=== PATIENT | female | born 1945 | race Caucasian/White ===

== ENCOUNTER 2016-11-04 09:37 | Inpatient (IN) | payer MEDICARE, OTHER ==
[2016-11-05] MEDS ORDERED: Temazepam 15 MG Cap PO PRN (11:58)
[2016-11-05] MEDS ORDERED: Magnesium Hydroxide 400 MG/5 ML Susp 30 ML Cup PO PRN (11:58)
[2016-11-05] MEDS ORDERED: Acetaminophen 325 MG Tab PO PRN (14:03)
[2016-11-05] MEDS ORDERED: ALPRAZolam 0.25 MG Tab PO PRN (14:03)
[2016-11-05] MEDS: Acetaminophen/oxyCODONE 325-5 MG Tab PO PRN ×2 (14:19→20:10)
[2016-11-05] MEDS: Insulin Aspart 100 Units/ML 3 ML Pen SUBCUT SCH ×2 (17:54→20:11)
[2016-11-05] MEDS: Carvedilol 3.125 MG Tab PO SCH (20:10)
[2016-11-05] MEDS: Insulin Detemir 100 Units/ML 3 ML Pen SUBCUT SCH (20:11)
[2016-11-06] MEDS: Insulin Detemir 100 Units/ML 3 ML Pen SUBCUT SCH ×2 (08:00→20:53)
[2016-11-06] MEDS: Diltiazem 120 MG Cap.CD PO SCH (08:05)
[2016-11-06] MEDS: Ferrous Sulfate 324 MG Tab.EC PO SCH (08:05)
[2016-11-06] MEDS: Furosemide 80 MG Tab PO SCH (08:06)
[2016-11-06] MEDS: Carvedilol 3.125 MG Tab PO SCH ×2 (08:06→20:52)
[2016-11-06] MEDS: Aspirin 81 MG Tab.EC PO SCH (08:06)
[2016-11-06] MEDS: Losartan 100 MG Tab PO SCH (08:06)
[2016-11-06] MEDS: Insulin Aspart 100 Units/ML 3 ML Pen SUBCUT SCH ×4 (08:07→20:56)
[2016-11-06] MEDS: Pantoprazole 40 MG Tab.CR PO SCH (08:16)
--- NOTE | 2016-11-06 08:34 | PCM.HP ---
H&P History of Present Illness - General Date of Service: 11/06/16 Admit Problem/Dx: Admission Diagnosis/Problem Admission Diagnosis/Problem Hip replacement planned Source of Information: Patient, Old Records History Limitations: Reports: No Limitations - History of Present Illness Initial Comments - Free Text/Narative: Patient transferred to [facility] bed after a total hip replacement done by Dr. Andres in [place]. Prior to surgery, patient had been on indomethacin and prednisone for gouty flare. That had cleared but she did have pre and postoperative difficulty with diabetes control. Blood sugars were running high. Transferred to [facility] for monitoring of her diabetes and pain control as well as rehab for her hip as she does live home alone. Duration of Symptoms: Reports: Day(s): Location: Reports: Lower Extremity, Right Quality: Reports: Ache, Sharp Severity: Moderate Improves with: Reports: Medication, Rest Worsens with: Reports: Movement Associated Symptoms: Reports: No Other Symptoms Right Hip Pain Score (Numeric/FACES): 6 - Related Data Allergies/Adverse Reactions: Allergies Allergy/AdvReac Type Severity Reaction Status Date / Time lisinopril Allergy Rash Verified 11/05/16 11:34 paper tape Allergy Rash Uncoded 11/05/16 11:34 Home Medications: Home Meds Pantoprazole [ProTONIX] 40 mg PO DAILY 45 Days 11/26/13 [Rx] Carvedilol [Coreg] 3.125 mg PO BID #60 tablet 06/16/15 [Rx] Furosemide [Lasix] 80 mg PO DAILY #30 tablet 06/16/15 [Rx] Insulin Detemir [Levemir Flextouch] 44 unit SQ ACBREAKFAST 08/19/15 [History] Insulin Detemir [Levemir Flextouch] 48 unit SUBCUT BEDTIME 08/19/15 [History] Diltiazem HCl [Cardizem Cd] 240 mg PO DAILY #0 08/25/15 [Rx] Valsartan 160 mg PO DAILY #0 12/30/15 [Rx] ALPRAZolam [Xanax] 0.5 mg PO BEDTIME PRN 05/10/16 [History] Docusate Sodium [Colace] 100 mg PO DAILY PRN 11/03/16 [History] Acetaminophen 1 - 2 tab PO Q4H PRN 11/05/16 [History] Acetaminophen/oxyCODONE [Percocet 325-5 MG] 1 - 2 tab PO Q4H PRN 11/05/16 [ History] Aspirin 81 mg PO DAILY 11/05/16 [History] Ferrous Sulfate 325 mg PO DAILY 11/05/16 [History] Insulin Aspart [NovoLOG] 18 - 20 unit SUBCUT TIDAC 11/05/16 [History] Past Medical History HEENT History: Reports: Sinusitis Cardiovascular History: Reports: CAD, Heart Failure, Hypertension Respiratory History: Reports: Bronchitis, Recurrent Genitourinary History: Reports: Other (See Below) Other Genitourinary History: hs of surgery on kidney, pt unaware of why Musculoskeletal History: Reports: Osteoarthritis Psychiatric History: Reports: Anxiety, Depression Endocrine/Metabolic History: Reports: Diabetes, Type II Hematologic History: Reports: None - Past Surgical History Cardiovascular Surgical History: Reports: Carotid Stents GI Surgical History: Reports: Appendectomy, Colonoscopy, Hernia, Abdominal, Hernia Repair/Other, Lysis of Adhesions, Polypectomy Musculoskeletal Surgical History: Reports: Hip Replacement, Knee Replacement Oncologic Surgical History: Reports: None Dermatological Surgical History: Reports: None Social & Family History - Family History Family Medical History: Noncontributory Cardiac: Reports: CAD, Heart Failure, Hypertension Neurological: Reports: Cerebral Aneurysms - Tobacco Use Smoking Status *Q: Never Smoker Years of Tobacco use: 40 Packs/Tins Daily: 2 Used Tobacco, but Quit: No Second Hand Smoke Exposure: Yes - Caffeine Use Caffeine Use: Reports: None - Alcohol Use Days Per Week of Alcohol Use: 1 Number of Drinks Per Day: 2 Total Drinks Per Week: 2 - Recreational Drug Use Recreational Drug Use: No - Sexual History Sexual History: Reports: None - Living Situation & Occupation Living situation: Reports: , Single, with Significant Other Occupation: Employed H&P Review of Systems - Review of Systems: Review Of Systems: See Below General: Reports: Malaise, Weakness. Denies: Fever, Chills HEENT: Reports: No Symptoms Pulmonary: Denies: Shortness of Breath Cardiovascular: Denies: Chest Pain, Edema, Lightheadedness Gastrointestinal: Denies: Abdominal Pain, Constipation, Diarrhea, Decreased Appetite, Nausea, Vomiting Genitourinary: Reports: No Symptoms Musculoskeletal: Reports: Leg Pain, Joint Pain Skin: Reports: Other (Incision to right hip) Psychiatric: Reports: No Symptoms Neurological: Reports: No Symptoms Exam - Exam Exam: See Below - Vital Signs Vital Signs: Last Vital Signs Temp 98.0 F 11/06/16 07:57 Pulse 69 11/06/16 08:06 Resp 20 11/06/16 07:57 BP 139/51 L 11/06/16 08:06 Pulse Ox 95 11/06/16 07:57 Weight: 266 lb 12.8 oz - Exam General: Alert, Oriented HEENT: Mucosa Moist & [place] Neck: Supple Lungs: Clear to Auscultation, Normal Respiratory Effort Cardiovascular: Regular Rate, Regular Rhythm GI/Abdominal Exam: Normal Bowel Sounds, Soft, Non-Tender Extremities: Other (Right hip pain with range of motion). No: Increased Warmth Skin: Warm, Dry, Incision (right hip ) Neuro Extensive - Mental Status: Alert, Oriented x3 Psychiatric: Alert, Normal Affect, Normal Mood - Patient Data Lab Results Last 24 hrs: Laboratory Results - last 24 hr 11/05/16 11/05/16 11/06/16 Range/Units 17:09 20:09 07:55 POC Glucose 180 H 292 H 154 H (75-105) mg/dl *Q Meaningful Use (ADM) - VTE *Q VTE Criteria *Q: - Stroke *Q Stroke Criteria *Q: - AMI *Q AMI Criteria *Q: - Problem List (1) S/P total hip arthroplasty SNOMED Code(s): 445579450502, 700408329824 ICD Code: Z96.649 - PRESENCE OF UNSPECIFIED ARTIFICIAL HIP JOINT Status: Acute Priority: High Current Visit: Yes Qualifiers: Laterality: right Qualified Code(s): Z96.641 - Presence of right artificial hip joint (2) Diabetes mellitus type 2 SNOMED Code(s): 60992083 ICD Code: E11.9 - TYPE 2 DIABETES MELLITUS WITHOUT COMPLICATIONS Status: Chronic Priority: High Current Visit: Yes Problem List Initiated/Reviewed/Updated: Yes Orders Last 24hrs: Active Orders 24 hr Category Date Time Status Patient Status [ADT] Routine ADT 11/05/16 11:58 Active Antiembolic Devices [RC] 1000,2200 Care 11/05/16 15:01 Active Blood Glucose Check, Bedside [RC] QIDACANDBED Care 11/05/16 11:58 Active Oxygen Therapy [RC] .PRN Care 11/05/16 11:58 Active Up With Assistance [RC] .PRN Care 11/05/16 11:58 Active Vital Signs [RC] Care 11/05/16 11:58 Active Wound Care [RC] Care 11/05/16 11:58 Active PT Evaluation and Treatment [CONS] Routine Cons 11/05/16 11:58 Active Consistent Carbohydrate Diet [DIET] Diet 11/05/16 Lunch Active ALPRAZolam [Xanax] Med 11/05/16 14:03 Active 0.5 mg PO BEDTIME PRN Acetaminophen [Tylenol] Med 11/05/16 11:58 Active 650 mg PO Q4H PRN Acetaminophen [Tylenol] Med 11/05/16 14:03 Active 650 mg PO Q4H PRN Acetaminophen/oxyCODONE [Percocet 325-5 MG] Med 11/05/16 14:03 Active 1 - 2 tab PO Q4H PRN Aspirin [Halfprin] Med 11/06/16 08:00 Active 81 mg PO DAILY Carvedilol [Coreg] Med 11/05/16 20:00 Active 3.125 mg PO BID Diltiazem [Cardizem CD] Med 11/06/16 08:00 Active 240 mg PO DAILY Docusate Sodium [Colace] Med 11/05/16 14:03 Active 100 mg PO DAILY PRN Ferrous Sulfate Med 11/06/16 08:00 Active 324 mg PO DAILY Furosemide [Lasix] Med 11/06/16 08:00 Active 80 mg PO DAILY Insulin Aspart [NovoLOG] Med 11/05/16 17:30 Active See Protocol SUBCUT WITHMEALSANDBED Insulin Detemir [Levemir] Med 11/06/16 08:00 Active 44 unit SUBCUT 0800 Insulin Detemir [Levemir] Med 11/05/16 20:00 Active 48 unit SUBCUT BEDTIME Losartan [Cozaar] Med 11/06/16 08:00 Active 100 mg PO DAILY Magnesium Hydroxide [Milk of Magnesia] Med 11/05/16 11:58 Active 30 ml PO Q12H PRN Ondansetron [Zofran ODT] Med 11/05/16 11:58 Active 4 mg PO Q4H PRN Pantoprazole [ProTONIX] Med 11/06/16 07:00 Active 40 mg PO 0700 Temazepam [Restoril] Med 11/05/16 11:58 Active 15 mg PO BEDTIME PRN Katie Sutures Removal [RC] Click To Edit Oth 11/05/16 11:58 Active LEO Hose [Antiembolic Hose] [OM.PC] Routine Oth 11/05/16 15:01 Ordered Resuscitation Status Routine Resus Stat 11/05/16 11:58 Ordered Medication Orders Acetaminophen (Tylenol) 650 mg PO Q4H PRN PRN Reason: Pain (Mild 1-3)/fever Acetaminophen (Tylenol) 650 mg PO Q4H PRN PRN Reason: Pain Alprazolam (Xanax) 0.5 mg PO BEDTIME PRN PRN Reason: Anxiety Aspirin (Halfprin) 81 mg PO DAILY [facility] Last Admin: 11/06/16 08:06 Dose: 81 mg Carvedilol (Coreg) 3.125 mg PO BID [facility] Last Admin: 11/06/16 08:06 Dose: 3.125 mg Admin: 11/05/16 20:10 Dose: 3.125 mg Diltiazem HCl (Cardizem Cd) 240 mg PO DAILY [facility] Last Admin: 11/06/16 08:05 Dose: 240 mg Docusate Sodium (Colace) 100 mg PO DAILY PRN PRN Reason: Constipation Ferrous Sulfate (Ferrous Sulfate) 324 mg PO DAILY [facility] Last Admin: 11/06/16 08:05 Dose: 324 mg Furosemide (Lasix) 80 mg PO DAILY [facility] Last Admin: 11/06/16 08:06 Dose: 80 mg Insulin Aspart (Novolog) 0 unit SUBCUT WITHMEALSANDBED [facility] PRN Reason: Protocol Last Admin: 11/06/16 08:07 Dose: 3 units Admin: 11/05/16 20:11 Dose: 9 unit Admin: 11/05/16 17:54 Dose: 3 unit Insulin Detemir (Levemir) 44 unit SUBCUT 0800 [facility] Insulin Detemir (Levemir) 48 unit SUBCUT BEDTIME [facility] Last Admin: 11/05/16 20:11 Dose: 48 units Losartan Potassium (Cozaar) 100 mg PO DAILY [facility] Last Admin: 11/06/16 08:06 Dose: 100 mg Magnesium Hydroxide (Milk Of Magnesia) 30 ml PO Q12H PRN PRN Reason: Constipation Ondansetron HCl (Zofran Odt) 4 mg PO Q4H PRN PRN Reason: nausea, able to take PO Oxycodone/Acetaminophen (Percocet 325-5 Mg) 1 - 2 tab PO Q4H PRN PRN Reason: Pain Last Admin: 11/05/16 20:10 Dose: 1 tab Admin: 11/05/16 14:19 Dose: 1 tab Pantoprazole Sodium (Protonix) 40 mg PO 0700 [facility] Last Admin: 11/06/16 08:16 Dose: 40 mg Temazepam (Restoril) 15 mg PO BEDTIME PRN PRN Reason: Sleep Assessment/Plan Comment:: Right Total Hip Replacement Plan: Admit to swing bed. Continue with wound cares, PT and pain control. Monitor blood sugars QID, sliding scale insulin.
[2016-11-06] MEDS: Acetaminophen/oxyCODONE 325-5 MG Tab PO PRN ×3 (10:23→20:54)
[2016-11-07] MEDS: Acetaminophen/oxyCODONE 325-5 MG Tab PO PRN ×2 (05:16→09:56)
[2016-11-07] MEDS: Pantoprazole 40 MG Tab.CR PO SCH (07:12)
[2016-11-07] MEDS: Aspirin 81 MG Tab.EC PO SCH (08:07)
[2016-11-07] MEDS: Ferrous Sulfate 324 MG Tab.EC PO SCH (08:07)
[2016-11-07] MEDS: Losartan 100 MG Tab PO SCH (08:07)
[2016-11-07] MEDS: Carvedilol 3.125 MG Tab PO SCH ×2 (08:07→20:25)
[2016-11-07] MEDS: Diltiazem 120 MG Cap.CD PO SCH (08:07)
[2016-11-07] MEDS: Furosemide 80 MG Tab PO SCH (08:08)
[2016-11-07] MEDS: Insulin Aspart 100 Units/ML 3 ML Pen SUBCUT SCH ×4 (08:11→22:25)
[2016-11-07] MEDS: Insulin Detemir 100 Units/ML 3 ML Pen SUBCUT SCH ×2 (08:11→21:40)
[2016-11-07] MEDS: Docusate Sodium 100 MG Cap PO PRN (09:56)
[2016-11-07] MEDS: Ondansetron 4 MG Tab.DIS PO PRN ×2 (09:58→14:29)
[2016-11-07] MEDS ORDERED: Ondansetron 4 MG/2 ML SDV IM PRN (15:06)
[2016-11-07] MEDS: Acetaminophen 325 MG Tab PO PRN (20:31)
[2016-11-07] MEDS ORDERED: Insulin Detemir 100 Units/ML 3 ML Pen SUBCUT ONE (20:39)
[2016-11-08] MEDS: Pantoprazole 40 MG Tab.CR PO SCH (06:32)
[2016-11-08] MEDS: Insulin Aspart 100 Units/ML 3 ML Pen SUBCUT SCH ×4 (08:21→20:30)
[2016-11-08] MEDS: Losartan 100 MG Tab PO SCH (08:22)
[2016-11-08] MEDS: Ferrous Sulfate 324 MG Tab.EC PO SCH (08:22)
[2016-11-08] MEDS: Carvedilol 3.125 MG Tab PO SCH ×2 (08:23→20:29)
[2016-11-08] MEDS: Aspirin 81 MG Tab.EC PO SCH (08:23)
[2016-11-08] MEDS: Furosemide 80 MG Tab PO SCH (08:23)
[2016-11-08] MEDS: Diltiazem 120 MG Cap.CD PO SCH (08:23)
[2016-11-08] MEDS: Docusate Sodium 100 MG Cap PO PRN (08:23)
[2016-11-08] MEDS: Ondansetron 4 MG Tab.DIS PO PRN (08:27)
[2016-11-08] MEDS: Acetaminophen 325 MG Tab PO PRN ×4 (08:28→21:19)
[2016-11-08] MEDS: Insulin Detemir 100 Units/ML 3 ML Pen SUBCUT SCH ×2 (09:19→09:30)
[2016-11-09] MEDS: Pantoprazole 40 MG Tab.CR PO SCH (06:29)
[2016-11-09] MEDS ORDERED: Insulin Detemir 100 Units/ML 3 ML Pen SUBCUT SCH (08:00)
[2016-11-09] MEDS: Carvedilol 3.125 MG Tab PO SCH ×2 (08:23→19:34)
[2016-11-09] MEDS: Diltiazem 120 MG Cap.CD PO SCH (08:23)
[2016-11-09] MEDS: Aspirin 81 MG Tab.EC PO SCH (08:23)
[2016-11-09] MEDS: Furosemide 80 MG Tab PO SCH (08:23)
[2016-11-09] MEDS: Losartan 100 MG Tab PO SCH (08:23)
[2016-11-09] MEDS: Ferrous Sulfate 324 MG Tab.EC PO SCH (08:23)
[2016-11-09] MEDS: Acetaminophen 325 MG Tab PO PRN ×3 (08:24→16:51)
[2016-11-09] MEDS: Insulin Aspart 100 Units/ML 3 ML Pen SUBCUT SCH ×4 (08:26→21:13)
[2016-11-09] MEDS: Insulin Detemir 100 Units/ML 3 ML Pen SUBCUT SCH (08:27)
[2016-11-09] MEDS ORDERED: traMADol 50 MG Tab PO SCH (19:45)
[2016-11-09] MEDS: traMADol 50 MG Tab PO PRN (20:01)
[2016-11-10] MEDS: traMADol 50 MG Tab PO PRN ×2 (04:32→17:56)
[2016-11-10] MEDS: Pantoprazole 40 MG Tab.CR PO SCH (06:53)
[2016-11-10] MEDS: Furosemide 80 MG Tab PO SCH (08:16)
[2016-11-10] MEDS: Diltiazem 120 MG Cap.CD PO SCH (08:16)
[2016-11-10] MEDS: Losartan 100 MG Tab PO SCH (08:17)
[2016-11-10] MEDS: Ferrous Sulfate 324 MG Tab.EC PO SCH (08:17)
[2016-11-10] MEDS: Aspirin 81 MG Tab.EC PO SCH (08:17)
[2016-11-10] MEDS: Carvedilol 3.125 MG Tab PO SCH ×2 (08:18→19:34)
[2016-11-10] MEDS: Ondansetron 4 MG Tab.DIS PO PRN (08:22)
[2016-11-10] MEDS: Insulin Detemir 100 Units/ML 3 ML Pen SUBCUT SCH (08:23)
[2016-11-10] MEDS: Insulin Aspart 100 Units/ML 3 ML Pen SUBCUT SCH ×4 (08:24→20:26)
[2016-11-10] MEDS: Docusate Sodium 100 MG Cap PO PRN (10:18)
[2016-11-11] MEDS: Pantoprazole 40 MG Tab.CR PO SCH (07:04)
[2016-11-11] MEDS: Ferrous Sulfate 324 MG Tab.EC PO SCH (07:53)
[2016-11-11] MEDS: Losartan 100 MG Tab PO SCH (07:54)
[2016-11-11] MEDS: Diltiazem 120 MG Cap.CD PO SCH (07:54)
[2016-11-11] MEDS: Aspirin 81 MG Tab.EC PO SCH (07:54)
[2016-11-11] MEDS: Furosemide 80 MG Tab PO SCH (07:55)
[2016-11-11] MEDS: Carvedilol 3.125 MG Tab PO SCH ×2 (07:55→19:48)
[2016-11-11] MEDS: Insulin Aspart 100 Units/ML 3 ML Pen SUBCUT SCH ×4 (07:56→20:40)
[2016-11-11] MEDS: Insulin Detemir 100 Units/ML 3 ML Pen SUBCUT SCH (07:57)
[2016-11-11] MEDS: Indomethacin 25 MG Cap PO SCH (17:59)
[2016-11-12] MEDS: Pantoprazole 40 MG Tab.CR PO SCH (06:59)
[2016-11-12 07:56] VITALS: BP 151/70
[2016-11-12] MEDS: Aspirin 81 MG Tab.EC PO SCH (08:08)
[2016-11-12] MEDS: Carvedilol 3.125 MG Tab PO SCH (08:08)
[2016-11-12] MEDS: Furosemide 80 MG Tab PO SCH (08:08)
[2016-11-12] MEDS: Ferrous Sulfate 324 MG Tab.EC PO SCH (08:08)
[2016-11-12] MEDS: Losartan 100 MG Tab PO SCH (08:08)
[2016-11-12] MEDS: Indomethacin 25 MG Cap PO SCH (08:08)
[2016-11-12] MEDS: Diltiazem 120 MG Cap.CD PO SCH (08:09)
[2016-11-12] MEDS: Insulin Aspart 100 Units/ML 3 ML Pen SUBCUT SCH (08:10)
[2016-11-12] MEDS: Insulin Detemir 100 Units/ML 3 ML Pen SUBCUT SCH (08:11)
--- NOTE | 2016-11-12 19:49 | PCM.DCSUM1 ---
Discharge Summary - Hospital Course Free Text/Narrative:: Patient was admitted swing bed from [place] after having total right hip replacement. She was hyperglycemia prior to surgery and did have the same issues postoperatively. She was also having difficulty controlling pain and did not feel comfortable discharging home to be alone and felt she needed PT and better control of her diabetes. - Discharge Data Discharge Date: 11/12/16 Discharge Disposition: Home, Self-Care 01 Condition: Good - Discharge Diagnosis/Problem(s) (1) S/P total hip arthroplasty SNOMED Code(s): 669460233071, [id number] ICD Code: Z96.649 - PRESENCE OF UNSPECIFIED ARTIFICIAL HIP JOINT Status: Acute Priority: High Qualifiers: Laterality: right Qualified Code(s): Z96.641 - Presence of right artificial hip joint (2) Diabetes mellitus type 2 SNOMED Code(s): 12432255 ICD Code: E11.9 - TYPE 2 DIABETES MELLITUS WITHOUT COMPLICATIONS Status: Chronic Priority: High - Patient Summary/Data Complications: none Consults: Consultations 11/05/16 11:58 PT Evaluation and Treatment [CONS] Routine Hospital Course: Patient has done well through swing bed stay. Had slow progression with ambulation, tolerating well with walker. Did have issues with nausea related to pain pills so was taken off narcotics and has done relatively well with Tylenol. Incision has remained clean, dry and healing well. She has had good control of her blood sugars, not requiring as much insulin during stay. Levemir was reduced from 92 units to 50 due to low blood sugars but diet is much more controlled while here. She has also had a diminished appetite and meal intake has been poor at times. She did discuss stair with PT as she may have a few small stairs to maneuver but she feels that she will be able to handle this at home. Home Health ordered due to ongoing weakness, blood sugar control and PT. Dr. Oliveira to follow this during home health involvement. Patient did have increased pain in great toe yesterday. Was felt it was gouty arthropathy. Indomethacin was started and admits is getting some relief with that. Will cautiously have her take this at home twice a day as she does have a history of PUD. Continue Protonix. In one week, start Uloric. - Patient Instructions Diet: Usual Diet as Tolerated Activity: As Tolerated Notify Provider of: Fever, Nausea and/or Vomiting - Discharge Plan Prescriptions/Med Rec: Febuxostat [Uloric] 40 mg PO DAILY #30 tablet Indomethacin [Indocin] 50 mg PO BID #14 cap traMADol [Ultram] 50 mg PO Q6H PRN #60 tablet PRN Reason: Pain Home Medications: Home Meds Pantoprazole [ProTONIX] 40 mg PO DAILY 45 Days 11/26/13 [Rx] Carvedilol [Coreg] 3.125 mg PO BID #60 tablet 06/16/15 [Rx] Furosemide [Lasix] 80 mg PO DAILY #30 tablet 06/16/15 [Rx] Insulin Detemir [Levemir Flextouch] 44 unit SQ WITHBREAKFAST 08/19/15 [History] Insulin Detemir [Levemir Flextouch] 48 unit SUBCUT BEDTIME 08/19/15 [History] Diltiazem HCl [Cardizem Cd] 240 mg PO DAILY #0 08/25/15 [Rx] Valsartan 160 mg PO DAILY #0 12/30/15 [Rx] ALPRAZolam [Xanax] 0.5 mg PO BEDTIME PRN 05/10/16 [History] Docusate Sodium [Colace] 100 mg PO DAILY PRN 11/03/16 [History] Acetaminophen 1 - 2 tab PO Q4H PRN 11/05/16 [History] Aspirin 81 mg PO DAILY 11/05/16 [History] Ferrous Sulfate 325 mg PO DAILY 11/05/16 [History] Insulin Aspart [NovoLOG] 18 - 20 unit SUBCUT TIDMEALS 11/05/16 [History] Febuxostat [Uloric] 40 mg PO DAILY #30 tablet 11/12/16 [Rx] Indomethacin [Indocin] 50 mg PO BID #14 cap 11/12/16 [Rx] traMADol [Ultram] 50 mg PO Q6H PRN #60 tablet 11/12/16 [Rx] Referrals: Kelvin Oliveira MD [Primary Care Provider] - (Follow up with Dr. Oliveira in 2 weeks) - Discharge Summary/Plan Comment DC Time >30 min.: No Discharge Summary/Plan Comment: Discharge home on health health, continue aspirin, tramadol for pain. Uloric after one week of Indomethacin. Follow up with surgeon as scheduled. - General Info Date of Service: 11/12/16 Admission Dx/Problem (Free Text: Admission Diagnosis/Problem Admission Diagnosis/Problem Hip replacement planned Functional Status: Reports: Pain Controlled, Tolerating Diet, Ambulating - Review of Systems General: Reports: Weakness. Denies: Fever, Fatigue HEENT: Reports: No Symptoms Pulmonary: Denies: Shortness of Breath, Cough Cardiovascular: Denies: Chest Pain, Lightheadedness Gastrointestinal: Reports: Nausea. Denies: Abdominal Pain, Decreased Appetite, Vomiting Genitourinary: Reports: No Symptoms Musculoskeletal: Reports: Joint Pain Skin: Reports: Other (incision) Neurological: Reports: No Symptoms - Patient Data Vitals - Most Recent: Last Vital Signs Temp 96.7 F 11/12/16 07:55 Pulse 61 11/12/16 08:09 Resp 18 11/12/16 07:55 BP 151/70 H 11/12/16 08:09 Pulse Ox 99 11/12/16 07:55 Weight - Most Recent: 264 lb 14.4 oz I&O - Last 24 hours: Intake & Output 11/12/16 11/12/16 11/12/16 06:59 14:59 22:59 Intake Total 200 Balance 200 Lab Results - Last 24 hrs: Laboratory Results - last 24 hr 11/11/16 11/12/16 Range/Units 20:33 07:17 POC Glucose 230 H 138 H (75-105) mg/dl Med Orders - Current: Current Medications Discontinued Medications Acetaminophen (Tylenol) 650 mg PO Q4H PRN PRN Reason: Pain (Mild 1-3)/fever Last Admin: 11/09/16 16:51 Dose: 650 mg Alprazolam (Xanax) 0.5 mg PO BEDTIME PRN PRN Reason: Anxiety Aspirin (Halfprin) 81 mg PO DAILY [facility] Last Admin: 11/12/16 08:08 Dose: 81 mg Carvedilol (Coreg) 3.125 mg PO BID [facility] Last Admin: 11/12/16 08:08 Dose: 3.125 mg Diltiazem HCl (Cardizem Cd) 240 mg PO DAILY [facility] Last Admin: 11/12/16 08:09 Dose: 240 mg Docusate Sodium (Colace) 100 mg PO DAILY PRN PRN Reason: Constipation Last Admin: 11/10/16 10:18 Dose: 100 mg Ferrous Sulfate (Ferrous Sulfate) 324 mg PO DAILY [facility] Last Admin: 11/12/16 08:08 Dose: 324 mg Furosemide (Lasix) 80 mg PO DAILY [facility] Last Admin: 11/12/16 08:08 Dose: 80 mg Indomethacin (Indocin) 50 mg PO TIDMEALS [facility] Last Admin: 11/12/16 08:08 Dose: 50 mg Insulin Aspart (Novolog) 0 unit SUBCUT WITHMEALSANDBED [facility] PRN Reason: Protocol Last Admin: 11/12/16 08:10 Dose: Not Given Insulin Detemir (Levemir) 44 unit SUBCUT 0800 [facility] Last Admin: 11/08/16 09:19 Dose: Not Given Insulin Detemir (Levemir) 48 unit SUBCUT BEDTIME [facility] Last Admin: 11/07/16 21:40 Dose: Not Given Insulin Detemir (Levemir) 30 unit SUBCUT ONETIME ONE Stop: 11/07/16 20:40 Last Admin: 11/07/16 20:47 Dose: 30 units Insulin Detemir (Levemir) 50 unit SUBCUT 0800 [facility] Insulin Detemir (Levemir) 50 unit SUBCUT 0800 [facility] Last Admin: 11/12/16 08:11 Dose: 50 units Losartan Potassium (Cozaar) 100 mg PO DAILY [facility] Last Admin: 11/12/16 08:08 Dose: 100 mg Magnesium Hydroxide (Milk Of Magnesia) 30 ml PO Q12H PRN PRN Reason: Constipation Ondansetron HCl (Zofran Odt) 4 mg PO Q4H PRN PRN Reason: nausea, able to take PO Last Admin: 11/10/16 08:22 Dose: 4 mg Ondansetron HCl (Zofran) 4 mg IM Q6H PRN PRN Reason: Nausea/Vomiting Last Admin: 11/07/16 15:25 Dose: 4 mg Oxycodone/Acetaminophen (Percocet 325-5 Mg) 1 - 2 tab PO Q4H PRN PRN Reason: Pain Last Admin: 11/07/16 09:56 Dose: 2 tab Pantoprazole Sodium (Protonix) 40 mg PO 0700 [facility] Last Admin: 11/12/16 06:59 Dose: 40 mg Temazepam (Restoril) 15 mg PO BEDTIME PRN PRN Reason: Sleep Tramadol HCl (Ultram) 50 mg PO Q6H [facility] Last Admin: 11/09/16 19:55 Dose: Not Given Tramadol HCl (Ultram) 50 mg PO Q6H PRN PRN Reason: Pain Last Admin: 11/10/16 17:56 Dose: 50 mg - Exam General: Reports: Alert, Oriented HEENT: Reports: Mucous Membr. Moist/[place] Neck: Reports: Supple Lungs: Reports: Clear to Auscultation, Normal Respiratory Effort Cardiovascular: Reports: Regular Rate, Regular Rhythm GI/Abdominal Exam: Normal Bowel Sounds, Soft, Non-Tender Skin: Reports: Other (Incision to right hip) Wound/Incisions: Reports: Healing Well Neurological: Reports: No New Focal Deficit Psy/Mental Status: Reports: Alert, Normal Affect, Normal Mood *Q Meaningful Use (DIS) - VTE *Q VTE Criteria *Q: - Stroke *Q Stroke Criteria *Q: - AMI *Q AMI Criteria *Q:
== END 2016-11-12 10:37 | disposition home or self-care (01) | DRG 561 ==
LOC: CC.MS 11-05 11:10 → UNDOADMIN 11-05 11:10 → CC.MS 11-05 11:58
PROVIDERS: ADMIT Family Medicine; ATTEND Family Medicine
DX: Z47.1 Aftercare following joint replacement surgery (principal); Z96.641 Presence of right artificial hip joint; E11.9 Type 2 diabetes mellitus without complications; Z79.4 Long term (current) use of insulin; M10.9 Gout, unspecified; I11.0 Hypertensive heart disease with heart failure; Z79.52 Long term (current) use of systemic steroids; I25.10 Atherosclerotic heart disease of native coronary artery without angina pectoris; F41.9 Anxiety disorder, unspecified; I50.9 Heart failure, unspecified
CPT/HCPCS: 82962; 97110-GP; 97161-GP; A9270-GY; J1815-GY; J2405

== ENCOUNTER 2017-04-21 17:30 | Inpatient (IN) | payer MEDICARE, OTHER ==
--- NOTE | 2017-04-21 18:11 | EDM.PDOC ---
ED HPI GENERAL MEDICAL PROBLEM - General Chief Complaint: General Stated Complaint: WHEEZING Time Seen by Provider: 04/21/17 18:04 Source of Information: Reports: Patient History Limitations: Reports: No Limitations - History of Present Illness INITIAL COMMENTS - FREE TEXT/NARRATIVE: Patient presents with complaints of cough, fevers and shortness of breath. States started noting the tightness/burning in her chest about 3 days ago with the wheezing. Started using her nebulizer treatments 3 days ago. States has helped with the wheezing but continues to feel short of breath. No edema. Low grade fevers. Has not had much of an appetite. Admits to dry cough, has not been able to expectorate. States getting weaker every day. Onset: Gradual Duration: Day(s): Location: Reports: Chest Improves with: Reports: Other (nebulizer treatments) Associated Symptoms: Reports: Cough, Fever/Chills, Headaches, Loss of Appetite, Shortness of Breath, Weakness. 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 Chest Pain Score (Numeric/FACES): 7 - Related Data Allergies Allergy/AdvReac Type Severity Reaction Status Date / Time hydrocodone Allergy Vomiting Verified 04/21/17 17:44 lisinopril Allergy Rash Verified 04/21/17 17:43 tramadol Allergy Vomiting Verified 04/21/17 17:44 paper tape Allergy Rash Uncoded 11/05/16 11:34 Home Meds: Home Meds Pantoprazole [ProTONIX] 40 mg PO DAILY 45 Days tab.cr 11/26/13 [Rx] Carvedilol [Coreg] 3.125 mg PO BID #60 tablet 06/16/15 [Rx] Furosemide [Lasix] 80 mg PO DAILY #30 tablet 06/16/15 [Rx] Insulin Detemir [Levemir Flextouch] 44 unit SQ WITHBREAKFAST 08/19/15 [History] Insulin Detemir [Levemir Flextouch] 48 unit SUBCUT BEDTIME 08/19/15 [History] Diltiazem HCl [Cardizem Cd] 240 mg PO DAILY #0 08/25/15 [Rx] Valsartan 160 mg PO DAILY #0 12/30/15 [Rx] ALPRAZolam [Xanax] 0.5 mg PO BEDTIME 05/10/16 [History] Docusate Sodium [Colace] 100 mg PO DAILY PRN 11/03/16 [History] Acetaminophen 1 - 2 tab PO Q4H PRN 11/05/16 [History] Aspirin 81 mg PO DAILY 11/05/16 [History] Insulin Aspart [NovoLOG] 20 - 22 unit SUBCUT TIDMEALS 11/05/16 [History] Indomethacin [Indocin] 50 mg PO BID #14 cap 11/12/16 [Rx] Allopurinol [Zyloprim] 100 mg PO DAILY 04/21/17 [History] Past Medical History HEENT History: Reports: Sinusitis Cardiovascular History: Reports: CAD, Heart Failure, Hypertension Respiratory History: Reports: Bronchitis, Recurrent Genitourinary History: Reports: Other (See Below) Other Genitourinary History: hs of surgery on kidney, pt unaware of why Musculoskeletal History: Reports: Osteoarthritis Psychiatric History: Reports: Anxiety, Depression Endocrine/Metabolic History: Reports: Diabetes, Type II Hematologic History: Reports: None - Past Surgical History Cardiovascular Surgical History: Reports: Carotid Stents GI Surgical History: Reports: Appendectomy, Colonoscopy, Hernia, Abdominal, Hernia Repair/Other, Lysis of Adhesions, Polypectomy Neurological Surgical History: Reports: Other (See Below) Musculoskeletal Surgical History: Reports: Hip Replacement, Knee Replacement Oncologic Surgical History: Reports: None Dermatological Surgical History: Reports: None Social & Family History - Family History Family Medical History: Noncontributory Cardiac: Reports: CAD, Heart Failure, Hypertension Neurological: Reports: Cerebral Aneurysms - Tobacco Use Smoking Status *Q: Never Smoker Years of Tobacco use: 40 Packs/Tins Daily: 2 Used Tobacco, but Quit: No Second Hand Smoke Exposure: Yes - Caffeine Use Caffeine Use: Reports: Coffee - Alcohol Use Days Per Week of Alcohol Use: 1 Number of Drinks Per Day: 4 Total Drinks Per Week: 4 - Recreational Drug Use Recreational Drug Use: No - Sexual History Sexual History: Reports: None - Living Situation & Occupation Living situation: Reports: , Single, with Significant Other Occupation: Employed ED ROS GENERAL - Review of Systems Review Of Systems: See Below Constitutional: Reports: Fever, Chills, Malaise, Weakness, Fatigue, Decreased Appetite HEENT: Reports: Rhinitis, Sinus Problem. Denies: Ear Pain, Throat Pain, Vertigo Respiratory: Reports: Shortness of Breath, Wheezing, Pleuritic Chest Pain, Cough. Denies: Sputum Cardiovascular: Denies: Chest Pain, Edema, Lightheadedness Endocrine: Reports: Fatigue GI/Abdominal: Reports: Decreased Appetite. Denies: Abdominal Pain, Nausea, Vomiting : Reports: No Symptoms Musculoskeletal: Reports: Back Pain Skin: Reports: No Symptoms Neurological: Reports: No Symptoms Psychiatric: Reports: No Symptoms ED EXAM, GENERAL - Physical Exam Exam: See Below Exam Limited By: No Limitations General Appearance: Alert, WD/WN, Mild Distress (short of breath with conversation; appears to not feel well) Ears: Normal External Exam, Normal TMs Nose: Normal Inspection, Normal Mucosa, No Blood Throat/Mouth: Normal Inspection, Normal Oropharynx Head: Normocephalic Neck: Normal Inspection, Supple, Non-Tender Respiratory/Chest: Decreased Breath Sounds, Wheezing Cardiovascular: Regular Rate, Rhythm, No Edema GI/Abdominal: Normal Bowel Sounds, Soft, Non-Tender Extremities: Normal Inspection, Normal Capillary Refill Neurological: Alert, Oriented Skin Exam: Warm, Dry Course - Vital Signs Last Recorded V/S: Last Vital Signs Temp 99.4 F 04/21/17 17:35 Pulse 66 04/21/17 17:35 Resp 20 04/21/17 17:35 BP 147/70 H 04/21/17 17:35 Pulse Ox 96 04/21/17 17:35 - Orders/Labs/Meds Orders: Active Orders 24 hr Category Date Time Status Chest 2V [CR] Stat Exams 04/21/17 17:45 Taken Labs: Laboratory Tests 04/21/17 04/21/17 04/21/17 Range/Units 17:50 17:50 17:50 WBC 16.3 H (5.0-10.0) 10^3/uL RBC 3.38 L (4.00-5.50) 10^6/uL Hgb 9.6 L (12.0-16.0) g/dL Hct 30.1 L (37.0-47.0) % MCV 89.1 (82.0-94.0) fL MCH 28.4 (27.0-32.0) pg MCHC 31.9 L (33.0-38.0) g/dL RDW Coeff of Taniya 15.3 H (11.0-15.0) % Plt Count 304 (150-400) 10^3/uL Neut % (Auto) 56.3 (35-85) % Lymph % (Auto) 26.0 (10-55) % [place] % (Auto) 6.9 (0-16) % Eos % (Auto) 10.4 H (0-5) % Baso % (Auto) 0.4 (0-3) % Neut # (Auto) 9.17 H (1.80-7.00) 10^3/uL Lymph # (Auto) 4.24 (1.00-4.80) 10^3/uL [place] # (Auto) 1.13 H (0.00-0.80) 10^3/uL Eos # (Auto) 1.70 H (0.00-0.45) 10^3/uL Baso # (Auto) 0.06 10^3/uL D-Dimer, Quantitative 1.59 H (0.00-0.50) Sodium 138 (136-145) mEq/L Potassium 4.5 (3.5-5.0) mEq/L Chloride 101 (98-106) mEq/L Carbon Dioxide 29 (21-32) mmol/L BUN 27 H (7-18) mg/dL Creatinine 1.4 H (0.6-1.0) mg/dL Est Cr Clr Drug Dosing 37.18 mL/min Estimated GFR (MDRD) 37 L (>=60) mL/min Glucose 195 H (75-99) mg/dL Calcium 9.3 (8.4-10.1) mg/dL Total Bilirubin 0.5 (0.0-1.0) mg/dL AST 25 (15-37) U/L ALT 24 (12-78) U/L Alkaline Phosphatase 133 H (46-116) U/L C-Reactive Protein 8.9 H (0.2-0.8) mg/dL NT-Pro-B Natriuret Pep (0-1000) pg/mL Total Protein 7.1 (6.4-8.2) g/dL Albumin 3.3 L (3.4-5.0) g/dL Urine Color (YELLOW) Urine Appearance (CLEAR) Urine pH (4.5-8.0) Ur Specific Jonancy (1.003-1.020) Urine Protein (NEGATIVE) mg/dL Urine Glucose (UA) (NEGATIVE) mg/dL Urine Ketones (NEGATIVE) mg/dL Urine Occult Blood (NEGATIVE) Urine Nitrite (NEGATIVE) Urine Bilirubin (NEGATIVE) Urine Urobilinogen (0.2-1.0) EU/dL Ur Leukocyte Esterase (NEGATIVE) Urine RBC (0-5) /HPF Urine WBC (0-5) /HPF Ur Squamous Epith Cells (NOT SEEN) /HPF Urine Bacteria (NOT SEEN) /HPF 04/21/17 04/21/17 Range/Units 17:50 17:59 WBC (5.0-10.0) 10^3/uL RBC (4.00-5.50) 10^6/uL Hgb (12.0-16.0) g/dL Hct (37.0-47.0) % MCV (82.0-94.0) fL MCH (27.0-32.0) pg MCHC (33.0-38.0) g/dL RDW Coeff of Taniya (11.0-15.0) % Plt Count (150-400) 10^3/uL Neut % (Auto) (35-85) % Lymph % (Auto) (10-55) % [place] % (Auto) (0-16) % Eos % (Auto) (0-5) % Baso % (Auto) (0-3) % Neut # (Auto) (1.80-7.00) 10^3/uL Lymph # (Auto) (1.00-4.80) 10^3/uL [place] # (Auto) (0.00-0.80) 10^3/uL Eos # (Auto) (0.00-0.45) 10^3/uL Baso # (Auto) 10^3/uL D-Dimer, Quantitative (0.00-0.50) Sodium (136-145) mEq/L Potassium (3.5-5.0) mEq/L Chloride (98-106) mEq/L Carbon Dioxide (21-32) mmol/L BUN (7-18) mg/dL Creatinine (0.6-1.0) mg/dL Est Cr Clr Drug Dosing mL/min Estimated GFR (MDRD) (>=60) mL/min Glucose (75-99) mg/dL Calcium (8.4-10.1) mg/dL Total Bilirubin (0.0-1.0) mg/dL AST (15-37) U/L ALT (12-78) U/L Alkaline Phosphatase (46-116) U/L C-Reactive Protein (0.2-0.8) mg/dL NT-Pro-B Natriuret Pep 699 (0-1000) pg/mL Total Protein (6.4-8.2) g/dL Albumin (3.4-5.0) g/dL Urine Color Yellow (YELLOW) Urine Appearance Cloudy (CLEAR) Urine pH 5.5 (4.5-8.0) Ur Specific Jonancy 1.015 (1.003-1.020) Urine Protein 100 H (NEGATIVE) mg/dL Urine Glucose (UA) Negative (NEGATIVE) mg/dL Urine Ketones Negative (NEGATIVE) mg/dL Urine Occult Blood Trace-intact H (NEGATIVE) Urine Nitrite Negative (NEGATIVE) Urine Bilirubin Negative (NEGATIVE) Urine Urobilinogen 0.2 (0.2-1.0) EU/dL Ur Leukocyte Esterase Moderate H (NEGATIVE) Urine RBC 0-5 (0-5) /HPF Urine WBC 5-10 H (0-5) /HPF Ur Squamous Epith Cells Few H (NOT SEEN) /HPF Urine Bacteria Few H (NOT SEEN) /HPF - Re-Assessments/Exams Free Text/Narrative Re-Assessment/Exam: 04/21/17 18:36 Labs noted, elevated WBC, CRP. Chest xray is negative. Departure - Departure Time of Disposition: 18:37 Disposition: Admitted As Inpatient 67 Condition: Fair Clinical Impression: Upper respiratory infection - Discharge Information - Problem List & Annotations (1) Diabetes mellitus type 2 SNOMED Code(s): 13909779 Code(s): E11.9 - TYPE 2 DIABETES MELLITUS WITHOUT COMPLICATIONS Status: Chronic Priority: High Current Visit: Yes (2) Bronchitis SNOMED Code(s): 84461334 Code(s): J40 - BRONCHITIS, NOT SPECIFIED ACUTE OR CHRONIC Status: Acute Current Visit: Yes - Problem List Review Problem List Initiated/Reviewed/Updated: Yes - My Orders Last 24 Hours: My Active Orders 04/21/17 17:45 Chest 2V [CR] Stat - Assessment/Plan Admission H&P: Please use this note as an admission H&P Last 24 Hours: My Active Orders 04/21/17 17:45 Chest 2V [CR] Stat Assessment:: Bronchitis Plan: Patient admitted to inpatient to Dr. Oliveira for bronchitis. Will start IV antibiotics, steroids, nebs.
[2017-04-21] MEDS ORDERED: Acetaminophen 325 MG Tab PO PRN ×2 (19:05→19:06)
[2017-04-21] MEDS ORDERED: Sodium Chloride 0.9% 10 ML Syringe FLUSH PRN (19:05)
[2017-04-21] MEDS ORDERED: Magnesium Hydroxide 400 MG/5 ML Susp 30 ML Cup PO PRN (19:05)
[2017-04-21] MEDS ORDERED: Albuterol 0.083% 2.5 MG/3 ML Neb Soln NEB PRN (19:05)
[2017-04-21] MEDS ORDERED: Ondansetron 4 MG Tab.DIS PO PRN (19:05)
[2017-04-21] MEDS ORDERED: Docusate Sodium 100 MG Cap PO PRN (19:06)
[2017-04-21] MEDS: Sodium Chloride 0.9% 1,000 ML IV SCH (19:27)
[2017-04-21] MEDS: Levofloxacin/Dextrose 5%-Water 500 MG in Premix Bag 1 BAG IV SCH (19:28)
[2017-04-21] MEDS: Enoxaparin 40 MG/0.4 ML Syringe SUBCUT SCH (19:29)
[2017-04-21] MEDS: Albuterol/Ipratropium 3.0-0.5 MG/3 ML Neb Soln NEB SCH (19:29)
[2017-04-21] MEDS: methylPREDNISolone Sodium Succinate 125 MG/2 ML SDV IVPUSH SCH (19:30)
[2017-04-21] MEDS: Carvedilol 3.125 MG Tab PO SCH (19:31)
[2017-04-21] MEDS: Indomethacin 25 MG Cap PO SCH (19:31)
[2017-04-21] MEDS: Insulin Detemir 100 Units/ML 3 ML Pen SUBCUT SCH (19:32)
[2017-04-21] MEDS: ALPRAZolam 0.25 MG Tab PO SCH (19:47)
[2017-04-22] MEDS: Indomethacin 25 MG Cap PO SCH ×2 (07:48→20:18)
[2017-04-22] MEDS: Losartan 100 MG Tab PO SCH (07:48)
[2017-04-22] MEDS: Carvedilol 3.125 MG Tab PO SCH ×2 (07:48→20:19)
[2017-04-22] MEDS: Diltiazem 120 MG Cap.CD PO SCH (07:48)
[2017-04-22] MEDS: Albuterol/Ipratropium 3.0-0.5 MG/3 ML Neb Soln NEB SCH ×4 (07:48→20:18)
[2017-04-22] MEDS: Aspirin 81 MG Tab.Chew PO SCH (07:48)
[2017-04-22] MEDS: Insulin Detemir 100 Units/ML 3 ML Pen SUBCUT SCH ×2 (07:49→20:27)
[2017-04-22] MEDS: Furosemide 80 MG Tab PO SCH (07:49)
[2017-04-22] MEDS: Allopurinol 100 MG Tab PO SCH (07:49)
[2017-04-22] MEDS: Pantoprazole 40 MG Tab.CR PO SCH (07:49)
[2017-04-22] MEDS: methylPREDNISolone Sodium Succinate 125 MG/2 ML SDV IVPUSH SCH ×2 (07:49→20:18)
[2017-04-22] MEDS: Insulin Aspart 100 Units/ML 3 ML Pen SUBCUT SCH ×6 (07:55→17:25)
[2017-04-22] MEDS: Sodium Chloride 0.9% 1,000 ML IV SCH (10:00)
[2017-04-22] MEDS: ALPRAZolam 0.25 MG Tab PO SCH (20:18)
[2017-04-22] MEDS: Levofloxacin/Dextrose 5%-Water 500 MG in Premix Bag 1 BAG IV SCH (20:18)
[2017-04-22] MEDS: Enoxaparin 40 MG/0.4 ML Syringe SUBCUT SCH (20:18)
[2017-04-22] MEDS ORDERED: Insulin Regular, Human 100 Units/ML 10 ML Vial SUBCUT ONE (20:24)
[2017-04-22] MEDS ORDERED: Insulin Aspart 100 Units/ML 3 ML Pen SUBCUT ONE (20:45)
--- NOTE | 2017-04-22 22:14 | PCM.PN ---
- General Info Date of Service: 04/22/17 Admission Dx/Problem (Free Text): Acute Bronchitis Functional Status: Reports: Pain Controlled, Tolerating Diet, Ambulating - Review of Systems General: Reports: Weakness, Fatigue. Denies: Fever HEENT: Reports: Sinus Congestion, Rhinitis Pulmonary: Reports: Shortness of Breath, Sputum, Wheezing Cardiovascular: Denies: Chest Pain, Edema, Lightheadedness Gastrointestinal: Denies: Abdominal Pain, Decreased Appetite, Nausea, Vomiting Genitourinary: Reports: No Symptoms Musculoskeletal: Reports: No Symptoms Skin: Reports: No Symptoms Neurological: Reports: No Symptoms Psychiatric: Reports: No Symptoms - Patient Data Vitals - Most Recent: Last Vital Signs Temp 98.1 F 04/22/17 20:00 Pulse 85 04/22/17 20:00 Resp 18 04/22/17 20:00 BP 167/66 H 04/22/17 20:00 Pulse Ox 99 04/22/17 20:00 Weight - Most Recent: 255 lb 14.4 oz I&O - Last 24 Hours: Intake & Output 04/22/17 04/22/17 04/22/17 06:59 14:59 22:59 Intake Total 1000 Balance 1000 Lab Results Last 24 Hours: Laboratory Results - last 24 hr 04/21/17 04/22/17 04/22/17 Range/Units 22:22 07:04 07:04 WBC 12.6 H (5.0-10.0) 10^3/uL RBC 3.39 L (4.00-5.50) 10^6/uL Hgb 9.5 L (12.0-16.0) g/dL Hct 29.9 L (37.0-47.0) % MCV 88.2 (82.0-94.0) fL MCH 28.0 (27.0-32.0) pg MCHC 31.8 L (33.0-38.0) g/dL RDW Coeff of Taniya 14.7 (11.0-15.0) % Plt Count 251 (150-400) 10^3/uL Neut % (Auto) 88.5 H (35-85) % Lymph % (Auto) 10.4 (10-55) % [place] % (Auto) 0.9 (0-16) % Eos % (Auto) 0.1 (0-5) % Baso % (Auto) 0.1 (0-3) % Neut # (Auto) 11.13 H (1.80-7.00) 10^3/uL Lymph # (Auto) 1.30 (1.00-4.80) 10^3/uL [place] # (Auto) 0.11 (0.00-0.80) 10^3/uL Eos # (Auto) 0.01 (0.00-0.45) 10^3/uL Baso # (Auto) 0.01 10^3/uL Sodium 134 L (136-145) mEq/L Potassium 4.7 (3.5-5.0) mEq/L Chloride 98 (98-106) mEq/L Carbon Dioxide 25 (21-32) mmol/L BUN 31 H (7-18) mg/dL Creatinine 1.5 H (0.6-1.0) mg/dL Est Cr Clr Drug Dosing 34.70 mL/min Estimated GFR (MDRD) 34 L (>=60) mL/min Glucose 432 H* D (75-99) mg/dL POC Glucose 253 H (75-105) mg/dl Calcium 8.5 (8.4-10.1) mg/dL C-Reactive Protein 10.3 H (0.2-0.8) mg/dL 04/22/17 04/22/17 Range/Units 07:14 17:17 WBC (5.0-10.0) 10^3/uL RBC (4.00-5.50) 10^6/uL Hgb (12.0-16.0) g/dL Hct (37.0-47.0) % MCV (82.0-94.0) fL MCH (27.0-32.0) pg MCHC (33.0-38.0) g/dL RDW Coeff of Taniya (11.0-15.0) % Plt Count (150-400) 10^3/uL Neut % (Auto) (35-85) % Lymph % (Auto) (10-55) % [place] % (Auto) (0-16) % Eos % (Auto) (0-5) % Baso % (Auto) (0-3) % Neut # (Auto) (1.80-7.00) 10^3/uL Lymph # (Auto) (1.00-4.80) 10^3/uL [place] # (Auto) (0.00-0.80) 10^3/uL Eos # (Auto) (0.00-0.45) 10^3/uL Baso # (Auto) 10^3/uL Sodium (136-145) mEq/L Potassium (3.5-5.0) mEq/L Chloride (98-106) mEq/L Carbon Dioxide (21-32) mmol/L BUN (7-18) mg/dL Creatinine (0.6-1.0) mg/dL Est Cr Clr Drug Dosing mL/min Estimated GFR (MDRD) (>=60) mL/min Glucose (75-99) mg/dL POC Glucose 469 H* 476 H* (75-105) mg/dl Calcium (8.4-10.1) mg/dL C-Reactive Protein (0.2-0.8) mg/dL Med Orders - Current: Current Medications Acetaminophen (Tylenol) 650 mg PO Q4H PRN PRN Reason: Pain (Mild 1-3)/fever Acetaminophen (Tylenol) 0 mg PO Q4H PRN PRN Reason: Pain Albuterol (Proventil Neb Soln) 2.5 mg NEB Q4H PRN PRN Reason: Shortness Of Breath/wheezing Albuterol/Ipratropium (Duoneb 3.0-0.5 Mg/3 Ml) 3 ml NEB QIDRT [facility] Last Admin: 04/22/17 20:18 Dose: 3 ml Allopurinol (Zyloprim) 100 mg PO DAILY [facility] Last Admin: 04/22/17 07:49 Dose: 100 mg Alprazolam (Xanax) 0.5 mg PO BEDTIME [facility] Last Admin: 04/22/17 20:18 Dose: 0.5 mg Aspirin (Aspirin) 81 mg PO DAILY [facility] Last Admin: 04/22/17 07:48 Dose: 81 mg Carvedilol (Coreg) 3.125 mg PO BID [facility] Last Admin: 04/22/17 20:19 Dose: 3.125 mg Diltiazem HCl (Cardizem Cd) 240 mg PO DAILY [facility] Last Admin: 04/22/17 07:48 Dose: 240 mg Docusate Sodium (Colace) 100 mg PO DAILY PRN PRN Reason: Constipation Enoxaparin Sodium (Lovenox) 40 mg SUBCUT Q24H [facility] Last Admin: 04/22/17 20:18 Dose: 40 mg Furosemide (Lasix) 80 mg PO DAILY [facility] Last Admin: 04/22/17 07:49 Dose: 80 mg Levofloxacin/Dextrose 500 mg/ (Premix) 100 mls @ 100 mls/hr IV Q24H [facility] Last Admin: 04/22/17 20:18 Dose: 100 mls/hr Indomethacin (Indocin) 50 mg PO BID [facility] Last Admin: 04/22/17 20:18 Dose: 50 mg Insulin Aspart (Novolog) 0 unit SUBCUT TIDMEALS [facility] PRN Reason: Protocol Last Admin: 04/22/17 17:25 Dose: 15 units Insulin Aspart (Novolog) 20 - 22 unit SUBCUT TIDMEALS [facility] Last Admin: 04/22/17 17:25 Dose: 22 units Insulin Detemir (Levemir) 44 unit SUBCUT WITHBREAKFAST [facility] Last Admin: 04/22/17 07:49 Dose: 44 units Insulin Detemir (Levemir) 48 unit SUBCUT BEDTIME [facility] Last Admin: 04/22/17 20:27 Dose: 48 units Losartan Potassium (Cozaar) 100 mg PO DAILY [facility] Last Admin: 04/22/17 07:48 Dose: 100 mg Magnesium Hydroxide (Milk Of Magnesia) 30 ml PO Q12H PRN PRN Reason: Constipation Methylprednisolone Sodium Succinate (Solu-Medrol) 62.5 mg IVPUSH Q12H [facility] Last Admin: 04/22/17 20:18 Dose: 62.5 mg Ondansetron HCl (Zofran Odt) 4 mg PO Q4H PRN PRN Reason: nausea, able to take PO Pantoprazole Sodium (Protonix) 40 mg PO DAILY [facility] Last Admin: 04/22/17 07:49 Dose: 40 mg Sodium Chloride (Saline Flush) 10 ml FLUSH ASDIRECTED PRN PRN Reason: Keep Vein Open Temazepam (Restoril) 15 mg PO BEDTIME PRN PRN Reason: Sleep Discontinued Medications Sodium Chloride (Normal Saline) 1,000 mls @ 75 mls/hr IV ASDIRECTED [facility] Last Admin: 04/22/17 10:00 Dose: 75 mls/hr Insulin Aspart (Novolog) 20 unit SUBCUT ONETIME ONE Stop: 04/22/17 20:46 - Exam General: Alert, Oriented HEENT: Mucous Membr. Moist/[place] Neck: Supple Lungs: Decreased Breath Sounds, Wheezing Cardiovascular: Regular Rate, Regular Rhythm GI/Abdominal Exam: Normal Bowel Sounds, Soft, Non-Tender Extremities: Normal Inspection, No Pedal Edema Skin: Warm, Dry Neurological: No New Focal Deficit - Problem List & Annotations (1) Bronchitis SNOMED Code(s): 43961518 Code(s): J40 - BRONCHITIS, NOT SPECIFIED ACUTE OR CHRONIC Status: Acute Priority: High Current Visit: Yes (2) Diabetes mellitus type 2 SNOMED Code(s): 82530477 Code(s): E11.9 - TYPE 2 DIABETES MELLITUS WITHOUT COMPLICATIONS Status: Chronic Priority: High Current Visit: Yes - Problem List Review Problem List Initiated/Reviewed/Updated: Yes - My Orders Last 24 Hours: My Active Orders 04/22/17 08:00 Allopurinol [Zyloprim] 100 mg PO DAILY Aspirin 81 mg PO DAILY Diltiazem [Cardizem CD] 240 mg PO DAILY Furosemide [Lasix] 80 mg PO DAILY Insulin Aspart [NovoLOG] 20 - 22 unit SUBCUT TIDMEALS Insulin Detemir [Levemir] 44 unit SUBCUT WITHBREAKFAST Losartan [Cozaar] 100 mg PO DAILY Pantoprazole [ProTONIX] 40 mg PO DAILY - Assessment Assessment:: Acute Bronchitis - Plan Plan:: Patient mildly improved since last evening but continues to have ongoing wheezing and shortness of breath. Has frequent coughing spells, moist but nonproductive at this time. Afebrile. Dyspneic with conversation this am. Labs noted to have some improvement of WBC down to 12.6, CRP increased to 10.3. Will continue IV Levaquin, nebs and steroids. Cover with high dose insulin per sliding scale with addition to usual insulin doses. We will stop IV fluids today. Inappropriate for discharge at this time.
[2017-04-23] MEDS: Albuterol/Ipratropium 3.0-0.5 MG/3 ML Neb Soln NEB SCH ×4 (07:51→20:23)
[2017-04-23] MEDS: Allopurinol 100 MG Tab PO SCH (07:51)
[2017-04-23] MEDS: Indomethacin 25 MG Cap PO SCH ×2 (07:51→20:24)
[2017-04-23] MEDS: Aspirin 81 MG Tab.Chew PO SCH (07:51)
[2017-04-23] MEDS: Carvedilol 3.125 MG Tab PO SCH ×2 (07:51→20:24)
[2017-04-23] MEDS: Diltiazem 120 MG Cap.CD PO SCH (07:51)
[2017-04-23] MEDS: Losartan 100 MG Tab PO SCH (07:51)
[2017-04-23] MEDS: Pantoprazole 40 MG Tab.CR PO SCH (07:52)
[2017-04-23] MEDS: Furosemide 80 MG Tab PO SCH (07:52)
[2017-04-23] MEDS: Insulin Detemir 100 Units/ML 3 ML Pen SUBCUT SCH ×2 (07:52→20:29)
[2017-04-23] MEDS: Insulin Aspart 100 Units/ML 3 ML Pen SUBCUT SCH ×6 (07:53→17:25)
[2017-04-23] MEDS: methylPREDNISolone Sodium Succinate 125 MG/2 ML SDV IVPUSH SCH ×2 (07:55→20:23)
[2017-04-23] MEDS: Codeine/Promethazine 10-6.25 MG/5 ML Syrup 5 ML UD Cup PO PRN ×2 (11:47→20:24)
--- NOTE | 2017-04-23 15:33 | PCM.PN ---
- General Info Date of Service: 04/23/17 Admission Dx/Problem (Free Text): Acute Bronchitis Functional Status: Reports: Pain Controlled, Tolerating Diet. Denies: Ambulating - Review of Systems General: Reports: Weakness, Fatigue. Denies: Fever HEENT: Reports: Sinus Congestion, Rhinitis. Denies: Ear Pain, Sore Throat Pulmonary: Reports: Shortness of Breath, Cough, Wheezing Cardiovascular: Denies: Chest Pain, Edema, Lightheadedness Gastrointestinal: Denies: Abdominal Pain, Nausea, Vomiting Genitourinary: Reports: No Symptoms Musculoskeletal: Reports: No Symptoms Skin: Reports: No Symptoms Neurological: Reports: No Symptoms - Patient Data Vitals - Most Recent: Last Vital Signs Temp 97.7 F 04/23/17 12:00 Pulse 71 04/23/17 12:00 Resp 20 04/23/17 12:00 BP 161/68 H 04/23/17 12:00 Pulse Ox 99 04/23/17 12:00 Weight - Most Recent: 255 lb 14.4 oz Lab Results Last 24 Hours: Laboratory Results - last 24 hr 04/22/17 04/22/17 04/23/17 Range/Units 17:17 19:49 07:25 WBC 20.7 H* (5.0-10.0) 10^3/uL RBC 3.30 L (4.00-5.50) 10^6/uL Hgb 9.4 L (12.0-16.0) g/dL Hct 28.8 L (37.0-47.0) % MCV 87.3 (82.0-94.0) fL MCH 28.5 (27.0-32.0) pg MCHC 32.6 L (33.0-38.0) g/dL RDW Coeff of Taniya 14.9 (11.0-15.0) % Plt Count 308 (150-400) 10^3/uL Add Manual Diff Yes Neutrophils % (Manual) 85 (35-85) % Band Neutrophils % 4 (0-5) % Lymphocytes % (Manual) 8 L (21-55) % Monocytes % (Manual) 2 (2-12) % Metamyelocytes % 1 % Absolute Neutrophils 18.42 H (1.80-7.00) 10^3/uL Lymphocytes # (Manual) 1.66 (1.00-4.80) 10^3/uL Monocytes # (Manual) 0.41 (0.00-0.80) 10^3/uL Sodium (136-145) mEq/L Potassium (3.5-5.0) mEq/L Chloride (98-106) mEq/L Carbon Dioxide (21-32) mmol/L BUN (7-18) mg/dL Creatinine (0.6-1.0) mg/dL Est Cr Clr Drug Dosing mL/min Estimated GFR (MDRD) (>=60) mL/min Glucose (75-99) mg/dL POC Glucose 476 H* > 500 H* (75-105) mg/dl Calcium (8.4-10.1) mg/dL C-Reactive Protein (0.2-0.8) mg/dL 04/23/17 04/23/17 04/23/17 Range/Units 07:25 07:26 11:22 WBC (5.0-10.0) 10^3/uL RBC (4.00-5.50) 10^6/uL Hgb (12.0-16.0) g/dL Hct (37.0-47.0) % MCV (82.0-94.0) fL MCH (27.0-32.0) pg MCHC (33.0-38.0) g/dL RDW Coeff of Taniya (11.0-15.0) % Plt Count (150-400) 10^3/uL Add Manual Diff Neutrophils % (Manual) (35-85) % Band Neutrophils % (0-5) % Lymphocytes % (Manual) (21-55) % Monocytes % (Manual) (2-12) % Metamyelocytes % % Absolute Neutrophils (1.80-7.00) 10^3/uL Lymphocytes # (Manual) (1.00-4.80) 10^3/uL Monocytes # (Manual) (0.00-0.80) 10^3/uL Sodium 133 L (136-145) mEq/L Potassium 4.2 (3.5-5.0) mEq/L Chloride 97 L (98-106) mEq/L Carbon Dioxide 23 (21-32) mmol/L BUN 47 H D (7-18) mg/dL Creatinine 2.0 H (0.6-1.0) mg/dL Est Cr Clr Drug Dosing 26.03 mL/min Estimated GFR (MDRD) 25 L (>=60) mL/min Glucose 437 H* (75-99) mg/dL POC Glucose 446 H* 411 H* (75-105) mg/dl Calcium 8.7 (8.4-10.1) mg/dL C-Reactive Protein 6.2 H (0.2-0.8) mg/dL Med Orders - Current: Current Medications Acetaminophen (Tylenol) 650 mg PO Q4H PRN PRN Reason: Pain (Mild 1-3)/fever Acetaminophen (Tylenol) 0 mg PO Q4H PRN PRN Reason: Pain Albuterol (Proventil Neb Soln) 2.5 mg NEB Q4H PRN PRN Reason: Shortness Of Breath/wheezing Albuterol/Ipratropium (Duoneb 3.0-0.5 Mg/3 Ml) 3 ml NEB QIDRT [facility] Last Admin: 04/23/17 11:48 Dose: 3 ml Allopurinol (Zyloprim) 100 mg PO DAILY [facility] Last Admin: 04/23/17 07:51 Dose: 100 mg Alprazolam (Xanax) 0.5 mg PO BEDTIME [facility] Last Admin: 04/22/17 20:18 Dose: 0.5 mg Aspirin (Aspirin) 81 mg PO DAILY [facility] Last Admin: 04/23/17 07:51 Dose: 81 mg Carvedilol (Coreg) 3.125 mg PO BID [facility] Last Admin: 04/23/17 07:51 Dose: 3.125 mg Diltiazem HCl (Cardizem Cd) 240 mg PO DAILY [facility] Last Admin: 04/23/17 07:51 Dose: 240 mg Docusate Sodium (Colace) 100 mg PO DAILY PRN PRN Reason: Constipation Enoxaparin Sodium (Lovenox) 40 mg SUBCUT Q24H [facility] Last Admin: 04/22/17 20:18 Dose: 40 mg Furosemide (Lasix) 80 mg PO DAILY [facility] Last Admin: 04/23/17 07:52 Dose: 80 mg Levofloxacin/Dextrose 500 mg/ (Premix) 100 mls @ 100 mls/hr IV Q24H [facility] Last Admin: 04/22/17 20:18 Dose: 100 mls/hr Indomethacin (Indocin) 50 mg PO BID [facility] Last Admin: 04/23/17 07:51 Dose: 50 mg Insulin Aspart (Novolog) 0 unit SUBCUT TIDMEALS [facility] PRN Reason: Protocol Last Admin: 04/23/17 11:49 Dose: 15 units Insulin Aspart (Novolog) 30 unit SUBCUT TIDMEALS [facility] Last Admin: 04/23/17 11:49 Dose: 30 units Insulin Detemir (Levemir) 44 unit SUBCUT WITHBREAKFAST [facility] Last Admin: 04/23/17 07:52 Dose: 44 units Insulin Detemir (Levemir) 48 unit SUBCUT BEDTIME [facility] Last Admin: 04/22/17 20:27 Dose: 48 units Losartan Potassium (Cozaar) 100 mg PO DAILY [facility] Last Admin: 04/23/17 07:51 Dose: 100 mg Magnesium Hydroxide (Milk Of Magnesia) 30 ml PO Q12H PRN PRN Reason: Constipation Methylprednisolone Sodium Succinate (Solu-Medrol) 62.5 mg IVPUSH Q12H [facility] Last Admin: 04/23/17 07:55 Dose: 62.5 mg Ondansetron HCl (Zofran Odt) 4 mg PO Q4H PRN PRN Reason: nausea, able to take PO Pantoprazole Sodium (Protonix) 40 mg PO DAILY [facility] Last Admin: 04/23/17 07:52 Dose: 40 mg Promethazine HCl/Codeine (Phenergan With Codeine) 10 ml PO BEDTIME PRN PRN Reason: Cough Last Admin: 04/23/17 11:47 Dose: 10 ml Sodium Chloride (Saline Flush) 10 ml FLUSH ASDIRECTED PRN PRN Reason: Keep Vein Open Temazepam (Restoril) 15 mg PO BEDTIME PRN PRN Reason: Sleep Discontinued Medications Sodium Chloride (Normal Saline) 1,000 mls @ 75 mls/hr IV ASDIRECTED [facility] Last Admin: 04/22/17 10:00 Dose: 75 mls/hr Insulin Aspart (Novolog) 20 - 22 unit SUBCUT TIDMEALS [facility] Last Admin: 04/23/17 07:53 Dose: 22 units Insulin Aspart (Novolog) 20 unit SUBCUT ONETIME ONE Stop: 04/22/17 20:46 Last Admin: 04/22/17 22:42 Dose: 20 units - Exam General: Alert, Oriented HEENT: Mucous Membr. Moist/[employer] Neck: Supple Lungs: Decreased Breath Sounds, Wheezing Cardiovascular: Regular Rate, Regular Rhythm GI/Abdominal Exam: Normal Bowel Sounds, Soft, Non-Tender Extremities: Normal Inspection, No Pedal Edema Skin: Warm, Dry Neurological: No New Focal Deficit - Problem List & Annotations (1) Bronchitis SNOMED Code(s): 29126351 Code(s): J40 - BRONCHITIS, NOT SPECIFIED ACUTE OR CHRONIC Status: Acute Priority: High Current Visit: Yes (2) Diabetes mellitus type 2 SNOMED Code(s): 85712352 Code(s): E11.9 - TYPE 2 DIABETES MELLITUS WITHOUT COMPLICATIONS Status: Chronic Priority: High Current Visit: Yes - Problem List Review Problem List Initiated/Reviewed/Updated: Yes - My Orders Last 24 Hours: My Active Orders 04/23/17 09:01 Codeine/Promethazine [Phenergan with Codeine] 10 ml PO BEDTIME PRN 04/23/17 12:00 Insulin Aspart [NovoLOG] 30 unit SUBCUT TIDMEALS - Assessment Assessment:: Acute Bronchitis - Plan Plan:: Patient mildly improved since last evening but continues to have ongoing wheezing and shortness of breath. Has frequent coughing spells, moist but nonproductive at this time. Afebrile. Dyspneic with conversation this am. Labs noted to have some improvement of WBC down to 12.6, CRP increased to 10.3. Will continue IV Levaquin, nebs and steroids. Cover with high dose insulin per sliding scale with addition to usual insulin doses. We will stop IV fluids today. Inappropriate for discharge at this time. 04-23-2017 Patient had restless night. States was unable to sleep due to cough. Still wheezing. Feels short of breath with cough and exertion. Attempted to ambulate last evening but got short of breath easily. Does have a tight cough, unable to expectorate. WBC is 20.7 but has been covered with steroids. CRP is improving to 6.2. Blood sugars still continue to run high Will continue with IV Levaquin. Phenergan with codeine at night for her cough. Increased novolog to 30 units at mealtime and sliding scale as needed. Inappropriate for discharge.
[2017-04-23] MEDS: Enoxaparin 40 MG/0.4 ML Syringe SUBCUT SCH (20:23)
[2017-04-23] MEDS: ALPRAZolam 0.25 MG Tab PO SCH (20:24)
[2017-04-23] MEDS: Levofloxacin/Dextrose 5%-Water 500 MG in Premix Bag 1 BAG IV SCH (20:31)
[2017-04-23] MEDS: Temazepam 15 MG Cap PO PRN (20:31)
[2017-04-24] MEDS: Pantoprazole 40 MG Tab.CR PO SCH (08:14)
[2017-04-24] MEDS: methylPREDNISolone Sodium Succinate 125 MG/2 ML SDV IVPUSH SCH ×2 (08:14→19:57)
[2017-04-24] MEDS: Furosemide 80 MG Tab PO SCH (08:14)
[2017-04-24] MEDS: Indomethacin 25 MG Cap PO SCH ×2 (08:15→19:54)
[2017-04-24] MEDS: Aspirin 81 MG Tab.Chew PO SCH (08:15)
[2017-04-24] MEDS: Allopurinol 100 MG Tab PO SCH (08:15)
[2017-04-24] MEDS: Diltiazem 120 MG Cap.CD PO SCH (08:16)
[2017-04-24] MEDS: Losartan 100 MG Tab PO SCH (08:16)
[2017-04-24] MEDS: Carvedilol 3.125 MG Tab PO SCH ×2 (08:17→19:53)
[2017-04-24] MEDS: Albuterol/Ipratropium 3.0-0.5 MG/3 ML Neb Soln NEB SCH ×4 (08:18→19:54)
[2017-04-24] MEDS: Insulin Detemir 100 Units/ML 3 ML Pen SUBCUT SCH ×2 (08:18→20:40)
[2017-04-24] MEDS: Insulin Aspart 100 Units/ML 3 ML Pen SUBCUT SCH ×6 (08:19→17:28)
[2017-04-24] MEDS: Enoxaparin 40 MG/0.4 ML Syringe SUBCUT SCH (19:55)
[2017-04-24] MEDS: ALPRAZolam 0.25 MG Tab PO SCH (19:56)
[2017-04-24] MEDS: Levofloxacin/Dextrose 5%-Water 500 MG in Premix Bag 1 BAG IV SCH (20:00)
--- NOTE | 2017-04-24 20:29 | PCM.PN ---
- General Info Date of Service: 04/24/17 Admission Dx/Problem (Free Text): Acute Bronchitis Functional Status: Reports: Pain Controlled, Tolerating Diet, Ambulating - Review of Systems General: Reports: Weakness, Fatigue, Malaise. Denies: Fever HEENT: Reports: Sinus Congestion, Rhinitis. Denies: Ear Pain, Sore Throat Pulmonary: Reports: Shortness of Breath, Cough, Wheezing Cardiovascular: Denies: Chest Pain, Edema, Lightheadedness Gastrointestinal: Denies: Abdominal Pain, Nausea, Vomiting Genitourinary: Reports: No Symptoms Musculoskeletal: Reports: No Symptoms Skin: Reports: No Symptoms Neurological: Reports: No Symptoms - Patient Data Vitals - Most Recent: Last Vital Signs Temp 98.2 F 04/24/17 19:43 Pulse 106 H 04/24/17 19:53 Resp 18 04/24/17 19:43 BP 165/51 H 04/24/17 19:53 Pulse Ox 96 04/24/17 19:43 Weight - Most Recent: 255 lb 14.4 oz Lab Results Last 24 Hours: Laboratory Results - last 24 hr 04/23/17 04/23/17 04/24/17 Range/Units 17:01 19:45 06:50 WBC 16.3 H (5.0-10.0) 10^3/uL RBC 3.14 L (4.00-5.50) 10^6/uL Hgb 9.0 L (12.0-16.0) g/dL Hct 27.3 L (37.0-47.0) % MCV 86.9 (82.0-94.0) fL MCH 28.7 (27.0-32.0) pg MCHC 33.0 (33.0-38.0) g/dL RDW Coeff of Taniya 14.6 (11.0-15.0) % Plt Count 268 (150-400) 10^3/uL Neut % (Auto) 89.1 H (35-85) % Lymph % (Auto) 8.2 L (10-55) % [place] % (Auto) 2.5 (0-16) % Eos % (Auto) 0.1 (0-5) % Baso % (Auto) 0.1 (0-3) % Neut # (Auto) 14.52 H (1.80-7.00) 10^3/uL Lymph # (Auto) 1.34 (1.00-4.80) 10^3/uL [place] # (Auto) 0.40 (0.00-0.80) 10^3/uL Eos # (Auto) 0.01 (0.00-0.45) 10^3/uL Baso # (Auto) 0.01 10^3/uL Sodium (136-145) mEq/L Potassium (3.5-5.0) mEq/L Chloride (98-106) mEq/L Carbon Dioxide (21-32) mmol/L BUN (7-18) mg/dL Creatinine (0.6-1.0) mg/dL Est Cr Clr Drug Dosing mL/min Estimated GFR (MDRD) (>=60) mL/min Glucose (75-99) mg/dL POC Glucose 256 H 291 H (75-105) mg/dl Calcium (8.4-10.1) mg/dL C-Reactive Protein (0.2-0.8) mg/dL 04/24/17 04/24/17 04/24/17 Range/Units 06:50 07:33 11:25 WBC (5.0-10.0) 10^3/uL RBC (4.00-5.50) 10^6/uL Hgb (12.0-16.0) g/dL Hct (37.0-47.0) % MCV (82.0-94.0) fL MCH (27.0-32.0) pg MCHC (33.0-38.0) g/dL RDW Coeff of Taniya (11.0-15.0) % Plt Count (150-400) 10^3/uL Neut % (Auto) (35-85) % Lymph % (Auto) (10-55) % [place] % (Auto) (0-16) % Eos % (Auto) (0-5) % Baso % (Auto) (0-3) % Neut # (Auto) (1.80-7.00) 10^3/uL Lymph # (Auto) (1.00-4.80) 10^3/uL [place] # (Auto) (0.00-0.80) 10^3/uL Eos # (Auto) (0.00-0.45) 10^3/uL Baso # (Auto) 10^3/uL Sodium 135 L (136-145) mEq/L Potassium 4.6 (3.5-5.0) mEq/L Chloride 101 (98-106) mEq/L Carbon Dioxide 25 (21-32) mmol/L BUN 57 H (7-18) mg/dL Creatinine 1.8 H (0.6-1.0) mg/dL Est Cr Clr Drug Dosing 28.92 mL/min Estimated GFR (MDRD) 28 L (>=60) mL/min Glucose 306 H* D (75-99) mg/dL POC Glucose 295 H 362 H (75-105) mg/dl Calcium 8.6 (8.4-10.1) mg/dL C-Reactive Protein 2.8 H (0.2-0.8) mg/dL 04/24/17 Range/Units 17:15 WBC (5.0-10.0) 10^3/uL RBC (4.00-5.50) 10^6/uL Hgb (12.0-16.0) g/dL Hct (37.0-47.0) % MCV (82.0-94.0) fL MCH (27.0-32.0) pg MCHC (33.0-38.0) g/dL RDW Coeff of Taniya (11.0-15.0) % Plt Count (150-400) 10^3/uL Neut % (Auto) (35-85) % Lymph % (Auto) (10-55) % [place] % (Auto) (0-16) % Eos % (Auto) (0-5) % Baso % (Auto) (0-3) % Neut # (Auto) (1.80-7.00) 10^3/uL Lymph # (Auto) (1.00-4.80) 10^3/uL [place] # (Auto) (0.00-0.80) 10^3/uL Eos # (Auto) (0.00-0.45) 10^3/uL Baso # (Auto) 10^3/uL Sodium (136-145) mEq/L Potassium (3.5-5.0) mEq/L Chloride (98-106) mEq/L Carbon Dioxide (21-32) mmol/L BUN (7-18) mg/dL Creatinine (0.6-1.0) mg/dL Est Cr Clr Drug Dosing mL/min Estimated GFR (MDRD) (>=60) mL/min Glucose (75-99) mg/dL POC Glucose 257 H (75-105) mg/dl Calcium (8.4-10.1) mg/dL C-Reactive Protein (0.2-0.8) mg/dL Med Orders - Current: Current Medications Acetaminophen (Tylenol) 650 mg PO Q4H PRN PRN Reason: Pain (Mild 1-3)/fever Acetaminophen (Tylenol) 0 mg PO Q4H PRN PRN Reason: Pain Albuterol (Proventil Neb Soln) 2.5 mg NEB Q4H PRN PRN Reason: Shortness Of Breath/wheezing Albuterol/Ipratropium (Duoneb 3.0-0.5 Mg/3 Ml) 3 ml NEB QIDRT [facility] Last Admin: 04/24/17 19:54 Dose: 3 ml Allopurinol (Zyloprim) 100 mg PO DAILY [facility] Last Admin: 04/24/17 08:15 Dose: 100 mg Alprazolam (Xanax) 0.5 mg PO BEDTIME [facility] Last Admin: 04/24/17 19:56 Dose: 0.5 mg Aspirin (Aspirin) 81 mg PO DAILY [facility] Last Admin: 04/24/17 08:15 Dose: 81 mg Carvedilol (Coreg) 3.125 mg PO BID [facility] Last Admin: 04/24/17 19:53 Dose: 3.125 mg Diltiazem HCl (Cardizem Cd) 240 mg PO DAILY [facility] Last Admin: 04/24/17 08:16 Dose: 240 mg Docusate Sodium (Colace) 100 mg PO DAILY PRN PRN Reason: Constipation Enoxaparin Sodium (Lovenox) 40 mg SUBCUT Q24H [facility] Last Admin: 04/24/17 19:55 Dose: 40 mg Furosemide (Lasix) 80 mg PO DAILY [facility] Last Admin: 04/24/17 08:14 Dose: 80 mg Levofloxacin/Dextrose 500 mg/ (Premix) 100 mls @ 100 mls/hr IV Q24H [facility] Last Admin: 04/24/17 20:00 Dose: 100 mls/hr Indomethacin (Indocin) 50 mg PO BID [facility] Last Admin: 04/24/17 19:54 Dose: 50 mg Insulin Aspart (Novolog) 0 unit SUBCUT TIDMEALS [facility] PRN Reason: Protocol Last Admin: 04/24/17 17:28 Dose: 9 units Insulin Aspart (Novolog) 30 unit SUBCUT TIDMEALS [facility] Last Admin: 04/24/17 17:28 Dose: 30 units Insulin Detemir (Levemir) 44 unit SUBCUT WITHBREAKFAST [facility] Last Admin: 04/24/17 08:18 Dose: 44 units Insulin Detemir (Levemir) 48 unit SUBCUT BEDTIME [facility] Last Admin: 04/23/17 20:29 Dose: 48 units Losartan Potassium (Cozaar) 100 mg PO DAILY [facility] Last Admin: 04/24/17 08:16 Dose: 100 mg Magnesium Hydroxide (Milk Of Magnesia) 30 ml PO Q12H PRN PRN Reason: Constipation Methylprednisolone Sodium Succinate (Solu-Medrol) 62.5 mg IVPUSH Q12H [facility] Last Admin: 04/24/17 19:57 Dose: 62.5 mg Ondansetron HCl (Zofran Odt) 4 mg PO Q4H PRN PRN Reason: nausea, able to take PO Pantoprazole Sodium (Protonix) 40 mg PO DAILY [facility] Last Admin: 04/24/17 08:14 Dose: 40 mg Promethazine HCl/Codeine (Phenergan With Codeine) 10 ml PO BEDTIME PRN PRN Reason: Cough Last Admin: 04/23/17 20:24 Dose: 10 ml Sodium Chloride (Saline Flush) 10 ml FLUSH ASDIRECTED PRN PRN Reason: Keep Vein Open Temazepam (Restoril) 15 mg PO BEDTIME PRN PRN Reason: Sleep Last Admin: 04/23/17 20:31 Dose: 15 mg Discontinued Medications Sodium Chloride (Normal Saline) 1,000 mls @ 75 mls/hr IV ASDIRECTED [facility] Last Admin: 04/22/17 10:00 Dose: 75 mls/hr Insulin Aspart (Novolog) 20 - 22 unit SUBCUT TIDMEALS [facility] Last Admin: 04/23/17 07:53 Dose: 22 units Insulin Aspart (Novolog) 20 unit SUBCUT ONETIME ONE Stop: 04/22/17 20:46 Last Admin: 04/22/17 22:42 Dose: 20 units - Exam General: Alert, Oriented HEENT: Mucous Membr. Moist/[place] Neck: Supple Lungs: Decreased Breath Sounds, Wheezing (fine wheezing) Cardiovascular: Regular Rate, Regular Rhythm GI/Abdominal Exam: Normal Bowel Sounds, Soft, Non-Tender Extremities: Normal Inspection, No Pedal Edema Skin: Warm, Dry Neurological: No New Focal Deficit - Problem List & Annotations (1) Bronchitis SNOMED Code(s): 73778993 Code(s): J40 - BRONCHITIS, NOT SPECIFIED ACUTE OR CHRONIC Status: Acute Priority: High Current Visit: Yes (2) Diabetes mellitus type 2 SNOMED Code(s): 34838134 Code(s): E11.9 - TYPE 2 DIABETES MELLITUS WITHOUT COMPLICATIONS Status: Chronic Priority: High Current Visit: Yes - Problem List Review Problem List Initiated/Reviewed/Updated: Yes - Assessment Assessment:: Acute Bronchitis - Plan Plan:: Patient mildly improved since last evening but continues to have ongoing wheezing and shortness of breath. Has frequent coughing spells, moist but nonproductive at this time. Afebrile. Dyspneic with conversation this am. Labs noted to have some improvement of WBC down to 12.6, CRP increased to 10.3. Will continue IV Levaquin, nebs and steroids. Cover with high dose insulin per sliding scale with addition to usual insulin doses. We will stop IV fluids today. Inappropriate for discharge at this time. 04-23-2017 Patient had restless night. States was unable to sleep due to cough. Still wheezing. Feels short of breath with cough and exertion. Attempted to ambulate last evening but got short of breath easily. Does have a tight cough, unable to expectorate. WBC is 20.7 but has been covered with steroids. CRP is improving to 6.2. Blood sugars still continue to run high Will continue with IV Levaquin. Phenergan with codeine at night for her cough. Increased novolog to 30 units at mealtime and sliding scale as needed. Inappropriate for discharge. 04-24-2017 Patient showing improvement, fine wheezing noted but much better air exchange this am. States had a restful night with cough medicine. WBC improved to 16.3 , CRP down to 2.8. Blood sugars improved with insulin change. Hemoglobin holding at 9.0. Continue current meds. Encourage ambulation. Possible discharge in next 1-2 days.
[2017-04-24] MEDS: Temazepam 15 MG Cap PO PRN (22:48)
[2017-04-24] MEDS: Codeine/Promethazine 10-6.25 MG/5 ML Syrup 5 ML UD Cup PO PRN (22:48)
[2017-04-25] MEDS: methylPREDNISolone Sodium Succinate 125 MG/2 ML SDV IVPUSH SCH (08:12)
[2017-04-25] MEDS: Allopurinol 100 MG Tab PO SCH (08:12)
[2017-04-25] MEDS: Albuterol/Ipratropium 3.0-0.5 MG/3 ML Neb Soln NEB SCH (08:12)
[2017-04-25] MEDS: Diltiazem 120 MG Cap.CD PO SCH (08:13)
[2017-04-25] MEDS: Carvedilol 3.125 MG Tab PO SCH (08:13)
[2017-04-25] MEDS: Pantoprazole 40 MG Tab.CR PO SCH (08:13)
[2017-04-25] MEDS: Losartan 100 MG Tab PO SCH (08:14)
[2017-04-25] MEDS: Aspirin 81 MG Tab.Chew PO SCH (08:14)
[2017-04-25] MEDS: Indomethacin 25 MG Cap PO SCH (08:14)
[2017-04-25] MEDS: Furosemide 80 MG Tab PO SCH (08:14)
[2017-04-25 08:15] VITALS: BP 153/77
[2017-04-25] MEDS: Insulin Aspart 100 Units/ML 3 ML Pen SUBCUT SCH ×2 (08:17→08:18)
[2017-04-25] MEDS: Insulin Detemir 100 Units/ML 3 ML Pen SUBCUT SCH (08:22)
--- NOTE | 2017-04-25 20:27 | PCM.DCSUM1 ---
Discharge Summary - Hospital Course Free Text/Narrative:: Patient presented to ER on Saturday with complaints of shortness of breath, wheezing. Had been on her nebulizer treatments for several days but chest continued to get more tight. Initial blood work in the ER did show elevated WBC and CRP. Chest xray negative for pneumonia. D-Dimer elevated, CT scan negative for PE. Admitted for IV antibiotics, steroids, nebs. - Discharge Data Discharge Date: 04/25/17 Discharge Disposition: DC/Tfer W/I Hosp To [place] [id number] Condition: Fair - Discharge Diagnosis/Problem(s) (1) Bronchitis SNOMED Code(s): 07810447 ICD Code: J40 - BRONCHITIS, NOT SPECIFIED ACUTE OR CHRONIC Status: Acute Priority: High (2) Diabetes mellitus type 2 SNOMED Code(s): 57201054 ICD Code: E11.9 - TYPE 2 DIABETES MELLITUS WITHOUT COMPLICATIONS Status: Chronic Priority: High - Patient Summary/Data Complications: none Hospital Course: Patient has had slow improvement but continues to still complain of shortness of breath. Lung sounds wheezy at times but has better air exchange. Afebrile. Blood sugars still high at times, improved as novolog was increased. WBC did spike up to 20.5, likely related to steroids but trending down. CRP down to 2.8. Ambulating short distances in [place] but does not tolerate well. Cough improving, remains nonproductive. Continues to require additional novolog at meal time, down from admit. Will transfer to swing bed for ongoing IV antibiotics, steroids, sliding scale insulin. Continue ambulation in hallways as tolerated. - Discharge Plan Home Medications: Home Meds Pantoprazole [ProTONIX] 40 mg PO DAILY 45 Days tab.cr 11/26/13 [Rx] Carvedilol [Coreg] 3.125 mg PO BID #60 tablet 06/16/15 [Rx] Furosemide [Lasix] 80 mg PO DAILY #30 tablet 06/16/15 [Rx] Insulin Detemir [Levemir Flextouch] 44 unit SQ WITHBREAKFAST 08/19/15 [History] Insulin Detemir [Levemir Flextouch] 48 unit SUBCUT BEDTIME 08/19/15 [History] Diltiazem HCl [Cardizem Cd] 240 mg PO DAILY #0 08/25/15 [Rx] Valsartan 160 mg PO DAILY #0 12/30/15 [Rx] ALPRAZolam [Xanax] 0.5 mg PO BEDTIME 05/10/16 [History] Docusate Sodium [Colace] 100 mg PO DAILY PRN 11/03/16 [History] Acetaminophen 1 - 2 tab PO Q4H PRN 11/05/16 [History] Aspirin 81 mg PO DAILY 11/05/16 [History] Insulin Aspart [NovoLOG] 20 - 22 unit SUBCUT TIDMEALS 11/05/16 [History] Indomethacin [Indocin] 50 mg PO BID #14 cap 11/12/16 [Rx] Allopurinol [Zyloprim] 100 mg PO DAILY 04/21/17 [History] Patient Handouts: Acute Bronchitis Forms: ED Department Discharge Referrals: Kelvin Oliveira MD [Primary Care Provider] - - Discharge Summary/Plan Comment DC Time >30 min.: Yes Discharge Summary/Plan Comment: Transfer to swing bed status for ongoing IV antibiotics, steroids, sliding scale insulin in addition to usual dose. Time spent with patient 10 minutes Time for orders 10 minutes Documentation time 15 minutes - General Info Date of Service: 04/25/17 Admission Dx/Problem (Free Text: Acute Bronchitis Functional Status: Reports: Pain Controlled, Tolerating Diet, Ambulating - Review of Systems General: Reports: Fatigue, Malaise. Denies: Fever, Weakness HEENT: Reports: Sinus Congestion, Rhinitis Pulmonary: Reports: Shortness of Breath, Cough, Wheezing. Denies: Sputum Cardiovascular: Denies: Chest Pain, Edema, Lightheadedness Gastrointestinal: Denies: Abdominal Pain, Nausea, Vomiting Genitourinary: Reports: No Symptoms Musculoskeletal: Reports: No Symptoms Skin: Reports: No Symptoms Neurological: Reports: No Symptoms - Patient Data Vitals - Most Recent: Last Vital Signs Temp 98.4 F 04/25/17 08:00 Pulse 79 04/25/17 08:13 Resp 19 04/25/17 08:00 BP 153/77 H 04/25/17 08:14 Pulse Ox 98 04/25/17 08:00 Weight - Most Recent: 255 lb 14.4 oz Lab Results - Last 24 hrs: Laboratory Results - last 24 hr 04/24/17 04/25/17 04/25/17 Range/Units 20:22 07:36 08:22 WBC 17.1 H (5.0-10.0) 10^3/uL RBC 3.51 L (4.00-5.50) 10^6/uL Hgb 9.8 L (12.0-16.0) g/dL Hct 30.7 L (37.0-47.0) % MCV 87.5 (82.0-94.0) fL MCH 27.9 (27.0-32.0) pg MCHC 31.9 L (33.0-38.0) g/dL RDW Coeff of Taniya 15.2 H (11.0-15.0) % Plt Count 339 (150-400) 10^3/uL Neut % (Auto) 87.8 H (35-85) % Lymph % (Auto) 9.6 L (10-55) % Ada % (Auto) 2.5 (0-16) % Eos % (Auto) 0.1 (0-5) % Baso % (Auto) 0 (0-3) % Neut # (Auto) 15.07 H (1.80-7.00) 10^3/uL Lymph # (Auto) 1.64 (1.00-4.80) 10^3/uL Ada # (Auto) 0.42 (0.00-0.80) 10^3/uL Eos # (Auto) 0.01 (0.00-0.45) 10^3/uL Baso # (Auto) 0.00 10^3/uL Sodium (136-145) mEq/L Potassium (3.5-5.0) mEq/L Chloride (98-106) mEq/L Carbon Dioxide (21-32) mmol/L BUN (7-18) mg/dL Creatinine (0.6-1.0) mg/dL Est Cr Clr Drug Dosing mL/min Estimated GFR (MDRD) (>=60) mL/min Glucose (75-99) mg/dL POC Glucose 308 H 309 H (75-105) mg/dl Calcium (8.4-10.1) mg/dL C-Reactive Protein (0.2-0.8) mg/dL 04/25/17 04/25/17 Range/Units 08:22 11:47 WBC (5.0-10.0) 10^3/uL RBC (4.00-5.50) 10^6/uL Hgb (12.0-16.0) g/dL Hct (37.0-47.0) % MCV (82.0-94.0) fL MCH (27.0-32.0) pg MCHC (33.0-38.0) g/dL RDW Coeff of Taniya (11.0-15.0) % Plt Count (150-400) 10^3/uL Neut % (Auto) (35-85) % Lymph % (Auto) (10-55) % Ada % (Auto) (0-16) % Eos % (Auto) (0-5) % Baso % (Auto) (0-3) % Neut # (Auto) (1.80-7.00) 10^3/uL Lymph # (Auto) (1.00-4.80) 10^3/uL Ada # (Auto) (0.00-0.80) 10^3/uL Eos # (Auto) (0.00-0.45) 10^3/uL Baso # (Auto) 10^3/uL Sodium 140 (136-145) mEq/L Potassium 4.7 (3.5-5.0) mEq/L Chloride 103 (98-106) mEq/L Carbon Dioxide 26 (21-32) mmol/L BUN 56 H (7-18) mg/dL Creatinine 1.7 H (0.6-1.0) mg/dL Est Cr Clr Drug Dosing 30.62 mL/min Estimated GFR (MDRD) 30 L (>=60) mL/min Glucose 352 H* (75-99) mg/dL POC Glucose 334 H (75-105) mg/dl Calcium 8.6 (8.4-10.1) mg/dL C-Reactive Protein 1.5 H (0.2-0.8) mg/dL Med Orders - Current: Current Medications Discontinued Medications Acetaminophen (Tylenol) 650 mg PO Q4H PRN PRN Reason: Pain (Mild 1-3)/fever Acetaminophen (Tylenol) 0 mg PO Q4H PRN PRN Reason: Pain Albuterol (Proventil Neb Soln) 2.5 mg NEB Q4H PRN PRN Reason: Shortness Of Breath/wheezing Albuterol/Ipratropium (Duoneb 3.0-0.5 Mg/3 Ml) 3 ml NEB QIDRT [facility] Last Admin: 04/25/17 08:12 Dose: 3 ml Allopurinol (Zyloprim) 100 mg PO DAILY [facility] Last Admin: 04/25/17 08:12 Dose: 100 mg Alprazolam (Xanax) 0.5 mg PO BEDTIME [facility] Last Admin: 04/24/17 19:56 Dose: 0.5 mg Aspirin (Aspirin) 81 mg PO DAILY [facility] Last Admin: 04/25/17 08:14 Dose: 81 mg Carvedilol (Coreg) 3.125 mg PO BID [facility] Last Admin: 04/25/17 08:13 Dose: 3.125 mg Diltiazem HCl (Cardizem Cd) 240 mg PO DAILY [facility] Last Admin: 04/25/17 08:13 Dose: 240 mg Docusate Sodium (Colace) 100 mg PO DAILY PRN PRN Reason: Constipation Enoxaparin Sodium (Lovenox) 40 mg SUBCUT Q24H [facility] Last Admin: 04/24/17 19:55 Dose: 40 mg Furosemide (Lasix) 80 mg PO DAILY [facility] Last Admin: 04/25/17 08:14 Dose: 80 mg Levofloxacin/Dextrose 500 mg/ (Premix) 100 mls @ 100 mls/hr IV Q24H [facility] Last Admin: 04/24/17 20:00 Dose: 100 mls/hr Sodium Chloride (Normal Saline) 1,000 mls @ 75 mls/hr IV ASDIRECTED [facility] Last Admin: 04/22/17 10:00 Dose: 75 mls/hr Indomethacin (Indocin) 50 mg PO BID [facility] Last Admin: 04/25/17 08:14 Dose: 50 mg Insulin Aspart (Novolog) 0 unit SUBCUT TIDMEALS [facility] PRN Reason: Protocol Last Admin: 04/25/17 08:17 Dose: 12 units Insulin Aspart (Novolog) 20 - 22 unit SUBCUT TIDMEALS [facility] Last Admin: 04/23/17 07:53 Dose: 22 units Insulin Aspart (Novolog) 20 unit SUBCUT ONETIME ONE Stop: 04/22/17 20:46 Last Admin: 04/22/17 22:42 Dose: 20 units Insulin Aspart (Novolog) 30 unit SUBCUT TIDMEALS [facility] Last Admin: 04/25/17 08:18 Dose: 30 units Insulin Detemir (Levemir) 44 unit SUBCUT WITHBREAKFAST [facility] Last Admin: 04/25/17 08:22 Dose: 44 units Insulin Detemir (Levemir) 48 unit SUBCUT BEDTIME [facility] Last Admin: 04/24/17 20:40 Dose: 48 units Losartan Potassium (Cozaar) 100 mg PO DAILY [facility] Last Admin: 04/25/17 08:14 Dose: 100 mg Magnesium Hydroxide (Milk Of Magnesia) 30 ml PO Q12H PRN PRN Reason: Constipation Methylprednisolone Sodium Succinate (Solu-Medrol) 62.5 mg IVPUSH Q12H [facility] Last Admin: 04/25/17 08:12 Dose: 62.5 mg Ondansetron HCl (Zofran Odt) 4 mg PO Q4H PRN PRN Reason: nausea, able to take PO Pantoprazole Sodium (Protonix) 40 mg PO DAILY [facility] Last Admin: 04/25/17 08:13 Dose: 40 mg Promethazine HCl/Codeine (Phenergan With Codeine) 10 ml PO BEDTIME PRN PRN Reason: Cough Last Admin: 04/24/17 22:48 Dose: 10 ml Sodium Chloride (Saline Flush) 10 ml FLUSH ASDIRECTED PRN PRN Reason: Keep Vein Open Temazepam (Restoril) 15 mg PO BEDTIME PRN PRN Reason: Sleep Last Admin: 04/24/17 22:48 Dose: 15 mg - Exam General: Reports: Alert, Oriented HEENT: Reports: Mucous Membr. Moist/[place]: Reports: Supple Lungs: Reports: Decreased Breath Sounds Cardiovascular: Reports: Regular Rate, Regular Rhythm GI/Abdominal Exam: Normal Bowel Sounds, Soft, Non-Tender Skin: Reports: Warm, Dry Neurological: Reports: No New Focal Deficit *Q Meaningful Use (DIS) - VTE *Q VTE Criteria *Q: - Stroke *Q Stroke Criteria *Q: - AMI *Q AMI Criteria *Q:
== END 2017-04-25 09:20 | disposition swing bed (61) | DRG 203 ==
LOC: CC.ED 17:30 → UNDOADMIN 18:33 → CC.MS 18:33
PROVIDERS: ADMIT Physician Assistant Medical; ATTEND Family Medicine
DX: J40 Bronchitis, not specified as acute or chronic (principal); J20.9 Acute bronchitis, unspecified; Z87.891 Personal history of nicotine dependence; E11.9 Type 2 diabetes mellitus without complications; R79.1 Abnormal coagulation profile; I25.10 Atherosclerotic heart disease of native coronary artery without angina pectoris; I11.0 Hypertensive heart disease with heart failure; I50.9 Heart failure, unspecified; M19.90 Unspecified osteoarthritis, unspecified site; F32.9 Major depressive disorder, single episode, unspecified; F41.9 Anxiety disorder, unspecified; Z88.6 Allergy status to analgesic agent; Z91.048 Other nonmedicinal substance allergy status; Z79.82 Long term (current) use of aspirin; Z79.4 Long term (current) use of insulin; Z79.899 Other long term (current) drug therapy
CPT/HCPCS: 36415; 71046; 71275; 80048; 80053; 81001; 82962; 83880; 85025; 85379; 86140; 87804; 94640; 99284; A9270-GY; J1650; J1815-GY; J1956; J2930; J7030; Q9967

== ENCOUNTER 2017-04-25 09:30 | Inpatient (IN) | payer MEDICARE, OTHER ==
[2017-04-25] MEDS ORDERED: Ondansetron 4 MG Tab.DIS PO PRN (09:51)
[2017-04-25] MEDS ORDERED: Albuterol 0.083% 2.5 MG/3 ML Neb Soln NEB PRN (09:51)
[2017-04-25] MEDS ORDERED: Sodium Chloride 0.9% 10 ML Syringe FLUSH PRN ×2 (09:51)
[2017-04-25] MEDS ORDERED: Docusate Sodium 100 MG Cap PO PRN (09:51)
[2017-04-25] MEDS ORDERED: Magnesium Hydroxide 400 MG/5 ML Susp 30 ML Cup PO PRN (09:51)
[2017-04-25] MEDS ORDERED: Acetaminophen 325 MG Tab PO PRN (09:51)
[2017-04-25] MEDS: Insulin Aspart 100 Units/ML 3 ML Pen SUBCUT SCH ×4 (12:04→17:32)
[2017-04-25] MEDS: Albuterol/Ipratropium 3.0-0.5 MG/3 ML Neb Soln NEB SCH ×3 (12:05→19:41)
[2017-04-25] MEDS: Carvedilol 3.125 MG Tab PO SCH (19:40)
[2017-04-25] MEDS: Indomethacin 25 MG Cap PO SCH (19:41)
[2017-04-25] MEDS: ALPRAZolam 0.25 MG Tab PO SCH (19:42)
[2017-04-25] MEDS: methylPREDNISolone Sodium Succinate 125 MG/2 ML SDV IVPUSH SCH (19:43)
[2017-04-25] MEDS: Enoxaparin 40 MG/0.4 ML Syringe SUBCUT SCH (19:44)
[2017-04-25] MEDS: Levofloxacin/Dextrose 5%-Water 250 MG in Premix Bag 1 BAG IV SCH (19:49)
[2017-04-25] MEDS ORDERED: Levofloxacin/Dextrose 5%-Water 500 MG in Premix Bag 1 BAG IV SCH (20:00)
[2017-04-25] MEDS: Insulin Detemir 100 Units/ML 3 ML Pen SUBCUT SCH (20:43)
[2017-04-25] MEDS: Codeine/Promethazine 10-6.25 MG/5 ML Syrup 5 ML UD Cup PO PRN (22:56)
[2017-04-25] MEDS: Temazepam 15 MG Cap PO PRN (22:56)
[2017-04-26] MEDS: methylPREDNISolone Sodium Succinate 125 MG/2 ML SDV IVPUSH SCH ×2 (07:37→19:39)
[2017-04-26] MEDS: Albuterol/Ipratropium 3.0-0.5 MG/3 ML Neb Soln NEB SCH ×4 (07:37→20:27)
[2017-04-26] MEDS: Indomethacin 25 MG Cap PO SCH ×2 (07:43→19:52)
[2017-04-26] MEDS: Allopurinol 100 MG Tab PO SCH (07:45)
[2017-04-26] MEDS: Furosemide 80 MG Tab PO SCH (07:45)
[2017-04-26] MEDS: Pantoprazole 40 MG Tab.CR PO SCH (07:45)
[2017-04-26] MEDS: Aspirin 81 MG Tab.Chew PO SCH (07:45)
[2017-04-26] MEDS: Losartan 100 MG Tab PO SCH (07:48)
[2017-04-26] MEDS: Diltiazem 120 MG Cap.CD PO SCH (07:49)
[2017-04-26] MEDS: Carvedilol 3.125 MG Tab PO SCH ×2 (07:49→19:51)
[2017-04-26] MEDS: Insulin Aspart 100 Units/ML 3 ML Pen SUBCUT SCH ×6 (08:09→17:47)
[2017-04-26] MEDS: Insulin Detemir 100 Units/ML 3 ML Pen SUBCUT SCH ×2 (08:11→20:27)
[2017-04-26] MEDS: Acetaminophen 325 MG Tab PO PRN (15:51)
[2017-04-26] MEDS: Levofloxacin/Dextrose 5%-Water 250 MG in Premix Bag 1 BAG IV SCH (19:43)
[2017-04-26] MEDS: Enoxaparin 40 MG/0.4 ML Syringe SUBCUT SCH (19:50)
[2017-04-26] MEDS: ALPRAZolam 0.25 MG Tab PO SCH (19:52)
[2017-04-26] MEDS: Temazepam 15 MG Cap PO PRN (23:15)
[2017-04-26] MEDS: Codeine/Promethazine 10-6.25 MG/5 ML Syrup 5 ML UD Cup PO PRN (23:15)
[2017-04-27] MEDS: methylPREDNISolone Sodium Succinate 125 MG/2 ML SDV IVPUSH SCH ×2 (07:40→19:37)
[2017-04-27] MEDS: Aspirin 81 MG Tab.Chew PO SCH (07:40)
[2017-04-27] MEDS: Albuterol/Ipratropium 3.0-0.5 MG/3 ML Neb Soln NEB SCH ×4 (07:40→20:15)
[2017-04-27] MEDS: Indomethacin 25 MG Cap PO SCH ×2 (07:40→19:48)
[2017-04-27] MEDS: Losartan 100 MG Tab PO SCH (07:41)
[2017-04-27] MEDS: Diltiazem 120 MG Cap.CD PO SCH (07:41)
[2017-04-27] MEDS: Allopurinol 100 MG Tab PO SCH (07:41)
[2017-04-27] MEDS: Carvedilol 3.125 MG Tab PO SCH ×2 (07:42→19:48)
[2017-04-27] MEDS: Furosemide 80 MG Tab PO SCH (07:43)
[2017-04-27] MEDS: Pantoprazole 40 MG Tab.CR PO SCH (07:43)
[2017-04-27] MEDS: Insulin Detemir 100 Units/ML 3 ML Pen SUBCUT SCH ×2 (07:45→20:30)
[2017-04-27] MEDS: Insulin Aspart 100 Units/ML 3 ML Pen SUBCUT SCH ×6 (07:46→17:23)
[2017-04-27] MEDS: guaiFENesin 200 MG Tab PO PRN ×2 (11:37→17:27)
[2017-04-27] MEDS: Enoxaparin 40 MG/0.4 ML Syringe SUBCUT SCH (19:41)
[2017-04-27] MEDS: Levofloxacin/Dextrose 5%-Water 250 MG in Premix Bag 1 BAG IV SCH (19:42)
[2017-04-27] MEDS: ALPRAZolam 0.25 MG Tab PO SCH (19:49)
[2017-04-27] MEDS: Temazepam 15 MG Cap PO PRN (23:28)
[2017-04-27] MEDS: Codeine/Promethazine 10-6.25 MG/5 ML Syrup 5 ML UD Cup PO PRN (23:28)
[2017-04-28] MEDS: Pantoprazole 40 MG Tab.CR PO SCH (07:40)
[2017-04-28] MEDS: Aspirin 81 MG Tab.Chew PO SCH (07:40)
[2017-04-28] MEDS: Furosemide 80 MG Tab PO SCH (07:40)
[2017-04-28] MEDS: Indomethacin 25 MG Cap PO SCH ×2 (07:41→20:05)
[2017-04-28] MEDS: Allopurinol 100 MG Tab PO SCH (07:41)
[2017-04-28] MEDS: Losartan 100 MG Tab PO SCH (07:41)
[2017-04-28] MEDS: Diltiazem 120 MG Cap.CD PO SCH (07:41)
[2017-04-28] MEDS: Carvedilol 3.125 MG Tab PO SCH ×2 (07:41→20:06)
[2017-04-28] MEDS: methylPREDNISolone Sodium Succinate 125 MG/2 ML SDV IVPUSH SCH ×2 (07:43→19:55)
[2017-04-28] MEDS: Acetaminophen 325 MG Tab PO PRN ×4 (07:46→23:50)
[2017-04-28] MEDS: Albuterol/Ipratropium 3.0-0.5 MG/3 ML Neb Soln NEB SCH ×4 (07:47→20:07)
[2017-04-28] MEDS: Insulin Detemir 100 Units/ML 3 ML Pen SUBCUT SCH ×2 (07:49→20:23)
[2017-04-28] MEDS: Insulin Aspart 100 Units/ML 3 ML Pen SUBCUT SCH ×6 (07:51→17:39)
[2017-04-28] MEDS: Levofloxacin/Dextrose 5%-Water 250 MG in Premix Bag 1 BAG IV SCH (20:03)
[2017-04-28] MEDS: Enoxaparin 40 MG/0.4 ML Syringe SUBCUT SCH (20:03)
[2017-04-28] MEDS: ALPRAZolam 0.25 MG Tab PO SCH (20:06)
[2017-04-28] MEDS: Codeine/Promethazine 10-6.25 MG/5 ML Syrup 5 ML UD Cup PO PRN (23:52)
[2017-04-28] MEDS: Temazepam 15 MG Cap PO PRN (23:52)
[2017-04-29] MEDS: methylPREDNISolone Sodium Succinate 125 MG/2 ML SDV IVPUSH SCH (08:08)
[2017-04-29] MEDS: Furosemide 80 MG Tab PO SCH (08:09)
[2017-04-29] MEDS: Indomethacin 25 MG Cap PO SCH (08:09)
[2017-04-29] MEDS: Diltiazem 120 MG Cap.CD PO SCH (08:12)
[2017-04-29] MEDS: Pantoprazole 40 MG Tab.CR PO SCH (08:13)
[2017-04-29] MEDS: Allopurinol 100 MG Tab PO SCH (08:13)
[2017-04-29] MEDS: Losartan 100 MG Tab PO SCH (08:13)
[2017-04-29] MEDS: Aspirin 81 MG Tab.Chew PO SCH (08:14)
[2017-04-29] MEDS: Albuterol/Ipratropium 3.0-0.5 MG/3 ML Neb Soln NEB SCH ×3 (08:14→16:35)
[2017-04-29] MEDS: Carvedilol 3.125 MG Tab PO SCH (08:14)
[2017-04-29] MEDS: Insulin Detemir 100 Units/ML 3 ML Pen SUBCUT SCH (08:15)
[2017-04-29] MEDS: Insulin Aspart 100 Units/ML 3 ML Pen SUBCUT SCH ×6 (08:16→17:37)
--- NOTE | 2017-04-29 09:12 | PCM.PN ---
- General Info Date of Service: 04/29/17 Admission Dx/Problem (Free Text): Acute Bronchitis Functional Status: Reports: Ambulating. Denies: Tolerating Diet - Review of Systems General: Denies: Fever, Weakness, Fatigue HEENT: Reports: No Symptoms Pulmonary: Denies: Shortness of Breath, Cough, Sputum Cardiovascular: Denies: Chest Pain, Edema, Lightheadedness Gastrointestinal: Reports: Abdominal Pain. Denies: Nausea, Vomiting Genitourinary: Reports: Frequency, Burning Musculoskeletal: Reports: No Symptoms Skin: Reports: No Symptoms Neurological: Reports: No Symptoms - Patient Data Vitals - Most Recent: Last Vital Signs Temp 98.9 F 04/29/17 08:00 Pulse 83 04/29/17 08:14 Resp 20 04/29/17 08:00 BP 171/101 H 04/29/17 08:14 Pulse Ox 99 04/29/17 08:00 Weight - Most Recent: 264 lb Lab Results Last 24 Hours: Laboratory Results - last 24 hr 04/28/17 04/28/17 04/28/17 Range/Units 12:00 17:23 20:19 WBC (5.0-10.0) 10^3/uL RBC (4.00-5.50) 10^6/uL Hgb (12.0-16.0) g/dL Hct (37.0-47.0) % MCV (82.0-94.0) fL MCH (27.0-32.0) pg MCHC (33.0-38.0) g/dL RDW Coeff of Taniya (11.0-15.0) % Plt Count (150-400) 10^3/uL Add Manual Diff Neutrophils % (Manual) (35-85) % Lymphocytes % (Manual) (21-55) % Monocytes % (Manual) (2-12) % Absolute Neutrophils (1.80-7.00) 10^3/uL Lymphocytes # (Manual) (1.00-4.80) 10^3/uL Monocytes # (Manual) (0.00-0.80) 10^3/uL Sodium (136-145) mEq/L Potassium (3.5-5.0) mEq/L Chloride (98-106) mEq/L Carbon Dioxide (21-32) mmol/L BUN (7-18) mg/dL Creatinine (0.6-1.0) mg/dL Est Cr Clr Drug Dosing mL/min Estimated GFR (MDRD) (>=60) mL/min Glucose (75-99) mg/dL POC Glucose 195 H 146 H 209 H (75-105) mg/dl Calcium (8.4-10.1) mg/dL Total Bilirubin (0.0-1.0) mg/dL AST (15-37) U/L ALT (12-78) U/L Alkaline Phosphatase (46-116) U/L C-Reactive Protein (0.2-0.8) mg/dL Total Protein (6.4-8.2) g/dL Albumin (3.4-5.0) g/dL Amylase (25-115) U/L 04/29/17 04/29/17 04/29/17 Range/Units 07:16 08:36 08:36 WBC 21.9 H* (5.0-10.0) 10^3/uL RBC 4.00 (4.00-5.50) 10^6/uL Hgb 11.2 L (12.0-16.0) g/dL Hct 35.2 L (37.0-47.0) % MCV 88.0 (82.0-94.0) fL MCH 28.0 (27.0-32.0) pg MCHC 31.8 L (33.0-38.0) g/dL RDW Coeff of Taniya 15.8 H (11.0-15.0) % Plt Count 395 (150-400) 10^3/uL Add Manual Diff Yes Neutrophils % (Manual) 82 (35-85) % Lymphocytes % (Manual) 10 L (21-55) % Monocytes % (Manual) 8 (2-12) % Absolute Neutrophils 17.96 H (1.80-7.00) 10^3/uL Lymphocytes # (Manual) 2.19 (1.00-4.80) 10^3/uL Monocytes # (Manual) 1.75 H (0.00-0.80) 10^3/uL Sodium 141 (136-145) mEq/L Potassium 3.9 (3.5-5.0) mEq/L Chloride 104 (98-106) mEq/L Carbon Dioxide 31 (21-32) mmol/L BUN 64 H (7-18) mg/dL Creatinine 1.7 H (0.6-1.0) mg/dL Est Cr Clr Drug Dosing 30.62 mL/min Estimated GFR (MDRD) 30 L (>=60) mL/min Glucose 144 H D (75-99) mg/dL POC Glucose 156 H (75-105) mg/dl Calcium 8.2 L (8.4-10.1) mg/dL Total Bilirubin 0.5 (0.0-1.0) mg/dL AST 15 (15-37) U/L ALT 25 (12-78) U/L Alkaline Phosphatase 74 (46-116) U/L C-Reactive Protein 5.6 H (0.2-0.8) mg/dL Total Protein 6.1 L (6.4-8.2) g/dL Albumin 2.7 L (3.4-5.0) g/dL Amylase 46 (25-115) U/L Med Orders - Current: Current Medications Acetaminophen (Tylenol) 0 mg PO Q4H PRN PRN Reason: Pain Last Admin: 04/28/17 23:50 Dose: 650 mg Albuterol (Proventil Neb Soln) 2.5 mg NEB Q4H PRN PRN Reason: Shortness Of Breath/wheezing Albuterol/Ipratropium (Duoneb 3.0-0.5 Mg/3 Ml) 3 ml NEB QIDRT [facility] Last Admin: 04/29/17 08:14 Dose: 3 ml Allopurinol (Zyloprim) 100 mg PO DAILY [facility] Last Admin: 04/29/17 08:13 Dose: 100 mg Alprazolam (Xanax) 0.5 mg PO BEDTIME [facility] Last Admin: 04/28/17 20:06 Dose: 0.5 mg Aspirin (Aspirin) 81 mg PO DAILY [facility] Last Admin: 04/29/17 08:14 Dose: 81 mg Carvedilol (Coreg) 3.125 mg PO BID [facility] Last Admin: 04/29/17 08:14 Dose: 3.125 mg Diltiazem HCl (Cardizem Cd) 240 mg PO DAILY [facility] Last Admin: 04/29/17 08:12 Dose: 240 mg Docusate Sodium (Colace) 100 mg PO DAILY PRN PRN Reason: Constipation Enoxaparin Sodium (Lovenox) 40 mg SUBCUT Q24H [facility] Last Admin: 04/28/17 20:03 Dose: 40 mg Furosemide (Lasix) 80 mg PO DAILY [facility] Last Admin: 04/29/17 08:09 Dose: 80 mg Guaifenesin (Organ-I Nr) 200 mg PO Q4H PRN PRN Reason: Congestion Last Admin: 04/27/17 17:27 Dose: 200 mg Levofloxacin/Dextrose 250 mg/ (Premix) 50 mls @ 50 mls/hr IV Q24H [facility] Last Admin: 04/28/17 20:03 Dose: 50 mls/hr Indomethacin (Indocin) 50 mg PO BID [facility] Last Admin: 04/29/17 08:09 Dose: 50 mg Insulin Aspart (Novolog) 0 unit SUBCUT TIDMEALS [facility] PRN Reason: Protocol Last Admin: 04/29/17 08:16 Dose: 3 units Insulin Aspart (Novolog) 30 unit SUBCUT TIDMEALS [facility] Last Admin: 04/29/17 08:18 Dose: 30 units Insulin Detemir (Levemir) 44 unit SUBCUT WITHBREAKFAST [facility] Last Admin: 04/29/17 08:15 Dose: 44 units Insulin Detemir (Levemir) 48 unit SUBCUT BEDTIME [facility] Last Admin: 04/28/17 20:23 Dose: 48 units Losartan Potassium (Cozaar) 100 mg PO DAILY [facility] Last Admin: 04/29/17 08:13 Dose: 100 mg Magnesium Hydroxide (Milk Of Magnesia) 30 ml PO Q12H PRN PRN Reason: Constipation Methylprednisolone Sodium Succinate (Solu-Medrol) 62.5 mg IVPUSH Q12H [facility] Last Admin: 04/29/17 08:08 Dose: 62.5 mg Ondansetron HCl (Zofran Odt) 4 mg PO Q4H PRN PRN Reason: nausea, able to take PO Pantoprazole Sodium (Protonix) 40 mg PO DAILY [facility] Last Admin: 04/29/17 08:13 Dose: 40 mg Promethazine HCl/Codeine (Phenergan With Codeine) 10 ml PO BEDTIME PRN PRN Reason: Cough Last Admin: 04/28/17 23:52 Dose: 10 ml Sodium Chloride (Saline Flush) 10 ml FLUSH ASDIRECTED PRN PRN Reason: Keep Vein Open Temazepam (Restoril) 15 mg PO BEDTIME PRN PRN Reason: Sleep Last Admin: 04/28/17 23:52 Dose: 15 mg Discontinued Medications Acetaminophen (Tylenol) 650 mg PO Q4H PRN PRN Reason: Pain (Mild 1-3)/fever Levofloxacin/Dextrose 500 mg/ (Premix) 100 mls @ 100 mls/hr IV Q24H [facility] Sodium Chloride (Saline Flush) 10 ml FLUSH ASDIRECTED PRN PRN Reason: Keep Vein Open - Exam General: Alert, Oriented HEENT: Mucous Membr. Moist/[place] Neck: Supple Lungs: Clear to Auscultation, Normal Respiratory Effort Cardiovascular: Regular Rate, Regular Rhythm GI/Abdominal Exam: Normal Bowel Sounds, Soft, Tender (diffusely) Extremities: Normal Inspection, No Pedal Edema Skin: Warm, Dry Neurological: No New Focal Deficit - Problem List & Annotations (1) Bronchitis SNOMED Code(s): 09014945 Code(s): J40 - BRONCHITIS, NOT SPECIFIED ACUTE OR CHRONIC Status: Acute Priority: High Current Visit: Yes (2) Abdominal pain SNOMED Code(s): 99914464 Code(s): R10.9 - UNSPECIFIED ABDOMINAL PAIN Status: Acute Priority: High Current Visit: Yes Qualifiers: Abdominal location: generalized Qualified Code(s): R10.84 - Generalized abdominal pain - Problem List Review Problem List Initiated/Reviewed/Updated: Yes - My Orders Last 24 Hours: My Active Orders 04/29/17 08:36 UA W/MICROSCOPIC [URIN] Stat - Assessment Assessment:: Bronchitis Abdominal Pain - Plan Plan:: Asked to see patient today due to increased complaints of abdominal pain. Patient states she awoke yesterday about 5 am with crampy abdominal pain. She had a normal BM yesterday but states did not resolve the pain. Staff reports she did eat 100% of all her meals yesterday, tylenol helped the abdominal discomfort per patient. Admits to burning with urination and that cramping gets worse after voiding. Lung sounds are much improved now, mild cough but no wheezing noted this am. Will check labs today and further evaluate and treat pending those results.
[2017-04-29] MEDS ORDERED: fentaNYL 100 MCG/2 ML SDV IVPUSH ONE (17:20)
[2017-04-29 17:30] VITALS: BP 155/56
[2017-04-29] MEDS ORDERED: Sodium Chloride 0.9% 1,000 ML IV SCH (17:30)
--- NOTE | 2017-04-29 17:38 | PCM.DCSUM1 ---
Discharge Summary - Hospital Course Free Text/Narrative:: Patient admitted from ER with acute bronchitis, respiratory distress. Initial work up in ER did show a WBC of 16.3, CRP of 8.9, electrolytes stable, creatinine 1.6 which is fairly stable for her. Was started on IV Levaquin and Solu Medrol, nebulizer treatments. Sliding scale insulin done above her usual novolog doses. WBC did increase to 20 during acute stay but CRP trended down. Was transferred to swing bed status for ongoing antibiotics and steroids. Overall lung status much improved, fine wheezing noted but still continued to have activity intolerance. - Discharge Data Discharge Date: 04/29/17 Discharge Disposition: Home, Self-Care 01 Condition: Undetermined - Discharge Diagnosis/Problem(s) (1) Bronchitis SNOMED Code(s): 92707977 ICD Code: J40 - BRONCHITIS, NOT SPECIFIED ACUTE OR CHRONIC Status: Acute Priority: High Current Visit: Yes (2) Abdominal pain SNOMED Code(s): 35967729 ICD Code: R10.9 - UNSPECIFIED ABDOMINAL PAIN Status: Acute Priority: High Current Visit: Yes Qualifiers: Abdominal location: generalized Qualified Code(s): R10.84 - Generalized abdominal pain - Patient Summary/Data Complications: none Hospital Course: Patient was improving upon transfer to swing bed, much better air exchange, decreased wheezing. Remained afebrile. Sats in the 90s. Yesterday am, patient developed acute abdominal pain. Had a good BM but states did not resolve the pain. She was able to tolerate all her meals. Asked to see the patient today as she continued to have ongoing pain. Lab work up done. WBC had again increased to 21.9, CRP up from 2 to 5.6. Very tender diffusely throughout. Creatinine 1.[address] of the abdomen was ordered with oral contrast only. Received call from radiology with noted free air in the abdomen, probable perforated viscera. Vital signs noted, temp low grade of 99.1. Blood pressure higher this am, now 150s/56. Contacted Dr. Jara after report received for acute abdomen. Did agree to accept the patient for surgical consult. Will transfer ALS to [facility]. Keep NPO. Risks of transfer include worsening pain and/or status to include or vehicular crash. Benefits of transfer include surgical capabilities at a tertiary facility. Risks of nontransfer including worsening status, no surgical capabilities. Benefits of nontransfer include care closer to home. Patient and daughter agree to transfer. - Patient Instructions Diet: NPO Other/Special Instructions: Transfer ALS to [facility] to Dr. Jara. Keep NPO. Fentanyl for pain. - Discharge Plan Home Medications: Home Meds Pantoprazole [ProTONIX] 40 mg PO DAILY 45 Days tab.cr 11/26/13 [Rx] Carvedilol [Coreg] 3.125 mg PO BID #60 tablet 06/16/15 [Rx] Furosemide [Lasix] 80 mg PO DAILY #30 tablet 06/16/15 [Rx] Insulin Detemir [Levemir Flextouch] 44 unit SQ WITHBREAKFAST 08/19/15 [History] Insulin Detemir [Levemir Flextouch] 48 unit SUBCUT BEDTIME 08/19/15 [History] Diltiazem HCl [Cardizem Cd] 240 mg PO DAILY #0 08/25/15 [Rx] Valsartan 160 mg PO DAILY #0 12/30/15 [Rx] ALPRAZolam [Xanax] 0.5 mg PO BEDTIME 05/10/16 [History] Docusate Sodium [Colace] 100 mg PO DAILY PRN 11/03/16 [History] Acetaminophen 1 - 2 tab PO Q4H PRN 11/05/16 [History] Aspirin 81 mg PO DAILY 11/05/16 [History] Insulin Aspart [NovoLOG] 20 - 22 unit SUBCUT TIDMEALS 11/05/16 [History] Indomethacin [Indocin] 50 mg PO BID #14 cap 11/12/16 [Rx] Allopurinol [Zyloprim] 100 mg PO DAILY 04/21/17 [History] - Discharge Summary/Plan Comment DC Time >30 min.: Yes Discharge Summary/Plan Comment: Discharge to [facility] to Dr. Jara for acute abdomen/surgical consult. Keep NPO. Transfer per ALS for pain control. Time with patient and daughter 10 minutes Time for arranging transfer/orders 15 minutes Time for documentation 10 minutes. - General Info Functional Status: Reports: Tolerating Diet, Ambulating. Denies: Pain Controlled - Review of Systems General: Reports: Malaise. Denies: Fever, Weakness, Fatigue HEENT: Reports: No Symptoms Pulmonary: Denies: Shortness of Breath, Cough, Sputum Cardiovascular: Denies: Chest Pain, Edema, Lightheadedness Gastrointestinal: Reports: Abdominal Pain. Denies: Nausea, Vomiting Genitourinary: Reports: No Symptoms Musculoskeletal: Reports: No Symptoms Skin: Reports: No Symptoms Neurological: Reports: No Symptoms - Patient Data Vitals - Most Recent: Last Vital Signs Temp 99.1 F 04/29/17 17:29 Pulse 82 04/29/17 17:29 Resp 20 04/29/17 17:29 BP 155/56 H 04/29/17 17:29 Pulse Ox 97 04/29/17 17:29 Weight - Most Recent: 264 lb Lab Results - Last 24 hrs: Laboratory Results - last 24 hr 04/28/17 04/29/17 04/29/17 Range/Units 20:19 07:16 08:36 WBC 21.9 H* (5.0-10.0) 10^3/uL RBC 4.00 (4.00-5.50) 10^6/uL Hgb 11.2 L (12.0-16.0) g/dL Hct 35.2 L (37.0-47.0) % MCV 88.0 (82.0-94.0) fL MCH 28.0 (27.0-32.0) pg MCHC 31.8 L (33.0-38.0) g/dL RDW Coeff of Taniya 15.8 H (11.0-15.0) % Plt Count 395 (150-400) 10^3/uL Add Manual Diff Yes Neutrophils % (Manual) 82 (35-85) % Lymphocytes % (Manual) 10 L (21-55) % Monocytes % (Manual) 8 (2-12) % Absolute Neutrophils 17.96 H (1.80-7.00) 10^3/uL Lymphocytes # (Manual) 2.19 (1.00-4.80) 10^3/uL Monocytes # (Manual) 1.75 H (0.00-0.80) 10^3/uL Sodium (136-145) mEq/L Potassium (3.5-5.0) mEq/L Chloride (98-106) mEq/L Carbon Dioxide (21-32) mmol/L BUN (7-18) mg/dL Creatinine (0.6-1.0) mg/dL Est Cr Clr Drug Dosing mL/min Estimated GFR (MDRD) (>=60) mL/min Glucose (75-99) mg/dL POC Glucose 209 H 156 H (75-105) mg/dl Calcium (8.4-10.1) mg/dL Total Bilirubin (0.0-1.0) mg/dL AST (15-37) U/L ALT (12-78) U/L Alkaline Phosphatase (46-116) U/L C-Reactive Protein (0.2-0.8) mg/dL Total Protein (6.4-8.2) g/dL Albumin (3.4-5.0) g/dL Amylase (25-115) U/L Urine Color (YELLOW) Urine Appearance (CLEAR) Urine pH (4.5-8.0) Ur Specific Douglass (1.003-1.020) Urine Protein (NEGATIVE) mg/dL Urine Glucose (UA) (NEGATIVE) mg/dL Urine Ketones (NEGATIVE) mg/dL Urine Occult Blood (NEGATIVE) Urine Nitrite (NEGATIVE) Urine Bilirubin (NEGATIVE) Urine Urobilinogen (0.2-1.0) EU/dL Ur Leukocyte Esterase (NEGATIVE) Urine RBC (0-5) /HPF Urine WBC (0-5) /HPF Ur Squamous Epith Cells (NOT SEEN) /HPF 04/29/17 04/29/17 04/29/17 Range/Units 08:36 08:36 11:45 WBC (5.0-10.0) 10^3/uL RBC (4.00-5.50) 10^6/uL Hgb (12.0-16.0) g/dL Hct (37.0-47.0) % MCV (82.0-94.0) fL MCH (27.0-32.0) pg MCHC (33.0-38.0) g/dL RDW Coeff of Taniya (11.0-15.0) % Plt Count (150-400) 10^3/uL Add Manual Diff Neutrophils % (Manual) (35-85) % Lymphocytes % (Manual) (21-55) % Monocytes % (Manual) (2-12) % Absolute Neutrophils (1.80-7.00) 10^3/uL Lymphocytes # (Manual) (1.00-4.80) 10^3/uL Monocytes # (Manual) (0.00-0.80) 10^3/uL Sodium 141 (136-145) mEq/L Potassium 3.9 (3.5-5.0) mEq/L Chloride 104 (98-106) mEq/L Carbon Dioxide 31 (21-32) mmol/L BUN 64 H (7-18) mg/dL Creatinine 1.7 H (0.6-1.0) mg/dL Est Cr Clr Drug Dosing 30.62 mL/min Estimated GFR (MDRD) 30 L (>=60) mL/min Glucose 144 H D (75-99) mg/dL POC Glucose 177 H (75-105) mg/dl Calcium 8.2 L (8.4-10.1) mg/dL Total Bilirubin 0.5 (0.0-1.0) mg/dL AST 15 (15-37) U/L ALT 25 (12-78) U/L Alkaline Phosphatase 74 (46-116) U/L C-Reactive Protein 5.6 H (0.2-0.8) mg/dL Total Protein 6.1 L (6.4-8.2) g/dL Albumin 2.7 L (3.4-5.0) g/dL Amylase 46 (25-115) U/L Urine Color Yellow (YELLOW) Urine Appearance Clear (CLEAR) Urine pH 5.0 (4.5-8.0) Ur Specific [place]lass 1.015 (1.003-1.020) Urine Protein Negative (NEGATIVE) mg/dL Urine Glucose (UA) Negative (NEGATIVE) mg/dL Urine Ketones Negative (NEGATIVE) mg/dL Urine Occult Blood Negative (NEGATIVE) Urine Nitrite Negative (NEGATIVE) Urine Bilirubin Negative (NEGATIVE) Urine Urobilinogen 0.2 (0.2-1.0) EU/dL Ur Leukocyte Esterase Negative (NEGATIVE) Urine RBC Not seen (0-5) /HPF Urine WBC Not seen (0-5) /HPF Ur Squamous Epith Cells Few H (NOT SEEN) /HPF 04/29/17 Range/Units 17:21 WBC (5.0-10.0) 10^3/uL RBC (4.00-5.50) 10^6/uL Hgb (12.0-16.0) g/dL Hct (37.0-47.0) % MCV (82.0-94.0) fL MCH (27.0-32.0) pg MCHC (33.0-38.0) g/dL RDW Coeff of Taniya (11.0-15.0) % Plt Count (150-400) 10^3/uL Add Manual Diff Neutrophils % (Manual) (35-85) % Lymphocytes % (Manual) (21-55) % Monocytes % (Manual) (2-12) % Absolute Neutrophils (1.80-7.00) 10^3/uL Lymphocytes # (Manual) (1.00-4.80) 10^3/uL Monocytes # (Manual) (0.00-0.80) 10^3/uL Sodium (136-145) mEq/L Potassium (3.5-5.0) mEq/L Chloride (98-106) mEq/L Carbon Dioxide (21-32) mmol/L BUN (7-18) mg/dL Creatinine (0.6-1.0) mg/dL Est Cr Clr Drug Dosing mL/min Estimated GFR (MDRD) (>=60) mL/min Glucose (75-99) mg/dL POC Glucose 117 H (75-105) mg/dl Calcium (8.4-10.1) mg/dL Total Bilirubin (0.0-1.0) mg/dL AST (15-37) U/L ALT (12-78) U/L Alkaline Phosphatase (46-116) U/L C-Reactive Protein (0.2-0.8) mg/dL Total Protein (6.4-8.2) g/dL Albumin (3.4-5.0) g/dL Amylase (25-115) U/L Urine Color (YELLOW) Urine Appearance (CLEAR) Urine pH (4.5-8.0) Ur Specific Douglass (1.003-1.020) Urine Protein (NEGATIVE) mg/dL Urine Glucose (UA) (NEGATIVE) mg/dL Urine Ketones (NEGATIVE) mg/dL Urine Occult Blood (NEGATIVE) Urine Nitrite (NEGATIVE) Urine Bilirubin (NEGATIVE) Urine Urobilinogen (0.2-1.0) EU/dL Ur Leukocyte Esterase (NEGATIVE) Urine RBC (0-5) /HPF Urine WBC (0-5) /HPF Ur Squamous Epith Cells (NOT SEEN) /HPF Med Orders - Current: Current Medications Acetaminophen (Tylenol) 0 mg PO Q4H PRN PRN Reason: Pain Last Admin: 04/28/17 23:50 Dose: 650 mg Albuterol (Proventil Neb Soln) 2.5 mg NEB Q4H PRN PRN Reason: Shortness Of Breath/wheezing Albuterol/Ipratropium (Duoneb 3.0-0.5 Mg/3 Ml) 3 ml NEB QIDRT [facility] Last Admin: 04/29/17 16:35 Dose: 3 ml Allopurinol (Zyloprim) 100 mg PO DAILY [facility] Last Admin: 04/29/17 08:13 Dose: 100 mg Alprazolam (Xanax) 0.5 mg PO BEDTIME [facility] Last Admin: 04/28/17 20:06 Dose: 0.5 mg Aspirin (Aspirin) 81 mg PO DAILY [facility] Last Admin: 04/29/17 08:14 Dose: 81 mg Carvedilol (Coreg) 3.125 mg PO BID [facility] Last Admin: 04/29/17 08:14 Dose: 3.125 mg Diltiazem HCl (Cardizem Cd) 240 mg PO DAILY [facility] Last Admin: 04/29/17 08:12 Dose: 240 mg Docusate Sodium (Colace) 100 mg PO DAILY PRN PRN Reason: Constipation Enoxaparin Sodium (Lovenox) 40 mg SUBCUT Q24H [facility] Last Admin: 04/28/17 20:03 Dose: 40 mg Furosemide (Lasix) 80 mg PO DAILY [facility] Last Admin: 04/29/17 08:09 Dose: 80 mg Guaifenesin (Organ-I Nr) 200 mg PO Q4H PRN PRN Reason: Congestion Last Admin: 04/27/17 17:27 Dose: 200 mg Levofloxacin/Dextrose 250 mg/ (Premix) 50 mls @ 50 mls/hr IV Q24H [facility] Last Admin: 04/28/17 20:03 Dose: 50 mls/hr Sodium Chloride (Normal Saline) 1,000 mls @ 50 mls/hr IV ASDIRECTED [facility] Indomethacin (Indocin) 50 mg PO BID [facility] Last Admin: 04/29/17 08:09 Dose: 50 mg Insulin Aspart (Novolog) 0 unit SUBCUT TIDMEALS [facility] PRN Reason: Protocol Last Admin: 04/29/17 11:47 Dose: 3 units Insulin Aspart (Novolog) 30 unit SUBCUT TIDMEALS [facility] Last Admin: 04/29/17 11:46 Dose: 30 units Insulin Detemir (Levemir) 44 unit SUBCUT WITHBREAKFAST [facility] Last Admin: 04/29/17 08:15 Dose: 44 units Insulin Detemir (Levemir) 48 unit SUBCUT BEDTIME [facility] Last Admin: 04/28/17 20:23 Dose: 48 units Losartan Potassium (Cozaar) 100 mg PO DAILY [facility] Last Admin: 04/29/17 08:13 Dose: 100 mg Magnesium Hydroxide (Milk Of Magnesia) 30 ml PO Q12H PRN PRN Reason: Constipation Methylprednisolone Sodium Succinate (Solu-Medrol) 62.5 mg IVPUSH Q12H [facility] Last Admin: 04/29/17 08:08 Dose: 62.5 mg Ondansetron HCl (Zofran Odt) 4 mg PO Q4H PRN PRN Reason: nausea, able to take PO Pantoprazole Sodium (Protonix) 40 mg PO DAILY [facility] Last Admin: 04/29/17 08:13 Dose: 40 mg Promethazine HCl/Codeine (Phenergan With Codeine) 10 ml PO BEDTIME PRN PRN Reason: Cough Last Admin: 04/28/17 23:52 Dose: 10 ml Sodium Chloride (Saline Flush) 10 ml FLUSH ASDIRECTED PRN PRN Reason: Keep Vein Open Temazepam (Restoril) 15 mg PO BEDTIME PRN PRN Reason: Sleep Last Admin: 04/28/17 23:52 Dose: 15 mg Discontinued Medications Acetaminophen (Tylenol) 650 mg PO Q4H PRN PRN Reason: Pain (Mild 1-3)/fever Fentanyl (Sublimaze) 50 mcg IVPUSH ONETIME ONE Stop: 04/29/17 17:21 Levofloxacin/Dextrose 500 mg/ (Premix) 100 mls @ 100 mls/hr IV Q24H [facility] Sodium Chloride (Saline Flush) 10 ml FLUSH ASDIRECTED PRN PRN Reason: Keep Vein Open - Exam General: Reports: Alert, Oriented HEENT: Reports: Mucous Membr. Moist/[place] Neck: Reports: Supple Lungs: Reports: Decreased Breath Sounds Cardiovascular: Reports: Regular Rate, Regular Rhythm GI/Abdominal Exam: Normal Bowel Sounds, Soft, Non-Tender Extremities: Normal Inspection, No Pedal Edema Skin: Reports: Warm, Dry Neurological: Reports: No New Focal Deficit *Q Meaningful Use (DIS) - VTE *Q VTE Criteria *Q: - Stroke *Q Stroke Criteria *Q: - AMI *Q AMI Criteria *Q:
[2017-04-29] MEDS: Pantoprazole 40 MG Vial IVPUSH ONE ×2 (18:25→18:31)
[2017-04-29] MEDS ORDERED: fentaNYL 100 MCG/2 ML SDV IVPUSH PRN (18:40)
== END 2017-04-29 19:22 | DRG 203 ==
LOC: CC.MS 09:30 → UNDOADMIN 09:30 → CC.MS 09:51
PROVIDERS: ADMIT Family Medicine; ATTEND Family Medicine
DX: J40 Bronchitis, not specified as acute or chronic (principal); E11.9 Type 2 diabetes mellitus without complications; I11.0 Hypertensive heart disease with heart failure; I50.9 Heart failure, unspecified; I25.10 Atherosclerotic heart disease of native coronary artery without angina pectoris; F41.9 Anxiety disorder, unspecified; F32.9 Major depressive disorder, single episode, unspecified; M19.90 Unspecified osteoarthritis, unspecified site; Z96.649 Presence of unspecified artificial hip joint; Z96.659 Presence of unspecified artificial knee joint; Z79.82 Long term (current) use of aspirin; Z79.4 Long term (current) use of insulin; R10.84 Generalized abdominal pain; R93.5 Abnormal findings on diagnostic imaging of other abdominal regions, including retroperitoneum
CPT/HCPCS: 36415; 74176; 80053; 81001; 82150; 82962; 85025; 86140; 94640; A9270-GY; C9113; J1650; J1815-GY; J1956; J2930; J3010; J7030

== ENCOUNTER 2017-05-14 11:35 | Inpatient (IN) | payer MEDICARE, OTHER ==
[2017-05-14] MEDS ORDERED: Acetaminophen 325 MG Tab PO PRN ×2 (13:57→14:16)
[2017-05-14] MEDS ORDERED: Metoclopramide 10 MG Tab PO PRN (14:09)
[2017-05-14] MEDS ORDERED: Albuterol/Ipratropium 3.0-0.5 MG/3 ML Neb Soln NEB PRN (14:09)
[2017-05-14] MEDS ORDERED: Ondansetron 4 MG Tab.DIS PO PRN (14:09)
[2017-05-14] MEDS ORDERED: Docusate Sodium 100 MG Cap PO PRN (14:16)
[2017-05-14] MEDS: oxyCODONE 5 MG Tab PO PRN (15:02)
[2017-05-14] MEDS: metroNIDAZOLE 500 MG Tab PO SCH ×2 (15:02→22:15)
[2017-05-14] MEDS: Ondansetron 4 MG Tab.DIS PO PRN (17:25)
[2017-05-14] MEDS ORDERED: Insulin Aspart 100 Units/ML 3 ML Pen SUBCUT SCH (17:30)
[2017-05-14] MEDS: Cefuroxime 250 MG Tab PO SCH (17:46)
[2017-05-14] MEDS ORDERED: ALPRAZolam 0.25 MG Tab ONE (19:41)
[2017-05-14] MEDS: Gabapentin 100 MG Cap PO SCH (19:53)
[2017-05-14] MEDS: Carvedilol 3.125 MG Tab PO SCH (19:54)
[2017-05-14] MEDS: Fluconazole 100 MG Tab PO SCH (19:54)
[2017-05-14] MEDS: Budesonide 0.5 MG/2 ML Neb Susp NEB SCH (19:54)
[2017-05-14] MEDS: ALPRAZolam 0.25 MG Tab PO SCH (19:54)
[2017-05-14] MEDS ORDERED: Insulin Detemir 100 Units/ML 3 ML Pen SUBCUT SCH (20:00)
[2017-05-14] MEDS ORDERED: Insulin Detemir 100 Units/ML 3 ML Pen SUBCUT ONE (20:26)
[2017-05-14] MEDS ORDERED: Sodium Chloride 0.9% 10 ML Syringe FLUSH PRN (20:28)
[2017-05-15] MEDS: oxyCODONE 5 MG Tab PO PRN ×3 (04:55→18:57)
[2017-05-15] MEDS: metroNIDAZOLE 500 MG Tab PO SCH ×3 (06:02→21:32)
[2017-05-15] MEDS: Pantoprazole 40 MG Tab.CR PO SCH (07:40)
[2017-05-15] MEDS: Diltiazem 120 MG Cap.CD PO SCH (07:40)
[2017-05-15] MEDS: buPROPion 150 MG Tab.ER PO SCH (07:41)
[2017-05-15] MEDS: Gabapentin 100 MG Cap PO SCH ×3 (07:41→20:03)
[2017-05-15] MEDS: Losartan 100 MG Tab PO SCH (07:41)
[2017-05-15] MEDS: Fluconazole 100 MG Tab PO SCH ×2 (07:41→20:02)
[2017-05-15] MEDS: Carvedilol 3.125 MG Tab PO SCH ×2 (07:42→20:02)
[2017-05-15] MEDS: Furosemide 80 MG Tab PO SCH (07:42)
[2017-05-15] MEDS: Cefuroxime 250 MG Tab PO SCH ×2 (07:42→17:41)
[2017-05-15] MEDS: Aspirin 81 MG Tab.Chew PO SCH (07:42)
[2017-05-15] MEDS: Budesonide 0.5 MG/2 ML Neb Susp NEB SCH ×2 (07:43→20:04)
[2017-05-15] MEDS: Polyethylene Glycol 3350 Powder 17 GM Packet PO SCH (07:43)
[2017-05-15] MEDS: Allopurinol 100 MG Tab PO SCH (07:43)
[2017-05-15] MEDS: Insulin Detemir 100 Units/ML 3 ML Pen SUBCUT SCH (07:47)
[2017-05-15] MEDS: Ondansetron 4 MG Tab.DIS PO PRN ×2 (07:54→14:06)
[2017-05-15] MEDS ORDERED: Insulin Aspart 100 Units/ML 3 ML Pen SUBCUT SCH (08:00)
--- NOTE | 2017-05-15 12:43 | PCM.HP ---
H&P History of Present Illness - General Date of Service: 05/14/17 Admit Problem/Dx: Admission Diagnosis/Problem Admission Diagnosis/Problem Perforated diverticulum of large intestine Source of Information: Patient, Old Records History Limitations: Reports: No Limitations - History of Present Illness Initial Comments - Free Text/Narative: Patient admitted swing bed from [facility] after she underwent exploratory laparotomy, peritoneal lavage, sigmoid colectomy with end colostomy (Aravind's procedure) as a result of a ruptured diverticulum. Patient had been here for a week due to bronchitis and developed abdominal pain. Had lab and CT scan done that did show a ruptured viscera and was transferred to [place] for emergent surgical consult. She was found to have feculent peritonitis. Postop, patient did develop an acute kidney injury and given fluid resuscitation with good response. Had persistent leukocytosis while there. Had an ileus. Subsequent CT scan was done that showed a fluid collection in the pelvis which was found to be fungal in nature. A MIGNON drain was placed. She was able to have her NG tube removed as ileus resolved. Did tolerate diet advancement but does continue to have nausea and vomiting at times. Colostomy has had good output. Has been treated with Diflucan, Flagyl and Rocephin and Infectious disease felt it was appropriate to switch her to oral medicines at this point. Has been ambulating short distances with PT. Patient's biggest complaint is of ongoing abdominal discomfort and generalized edema. Weight is noted to be up 37# since her discharge here. States they did restart her Furosemide yesterday. Duration of Symptoms: Reports: Day(s): Location: Reports: Abdomen, Generalized Quality: Reports: Ache, Sharp Severity: Moderate Improves with: Reports: Medication, Rest Worsens with: Reports: Movement Associated Symptoms: Reports: Loss of Appetite, Nausea/Vomiting, Shortness of Breath, Weakness. Denies: Confusion, Chest Pain, Cough, Fever/Chills Generalized Pain Score (Numeric/FACES): 6 - Related Data Allergies/Adverse Reactions: Allergies Allergy/AdvReac Type Severity Reaction Status Date / Time lisinopril Allergy Rash Verified 05/14/17 12:20 paper tape Allergy Rash Uncoded 05/14/17 12:20 Home Medications: Home Meds Pantoprazole [ProTONIX] 40 mg PO DAILY 45 Days tab.cr 11/26/13 [Rx] Carvedilol [Coreg] 3.125 mg PO BID #60 tablet 06/16/15 [Rx] Furosemide [Lasix] 80 mg PO DAILY #30 tablet 06/16/15 [Rx] Insulin Detemir [Levemir Flextouch] 44 unit SQ WITHBREAKFAST 08/19/15 [History] Insulin Detemir [Levemir Flextouch] 48 unit SUBCUT BEDTIME 08/19/15 [History] Diltiazem HCl [Cardizem Cd] 240 mg PO DAILY #0 08/25/15 [Rx] Valsartan 160 mg PO DAILY #0 12/30/15 [Rx] ALPRAZolam [Xanax] 0.5 mg PO BEDTIME 05/10/16 [History] Docusate Sodium [Colace] 100 mg PO DAILY PRN 11/03/16 [History] Acetaminophen 1 - 2 tab PO Q4H PRN 11/05/16 [History] Aspirin 81 mg PO DAILY 11/05/16 [History] Allopurinol [Zyloprim] 100 mg PO DAILY 04/21/17 [History] Gabapentin [Neurontin] 100 mg PO TID 05/14/17 [History] Insulin Aspart [NovoLOG] 22 units SUBCUT WITHBREAKFAST 05/14/17 [History] Insulin Aspart [NovoLOG] 25 units SUBCUT 1200,1730 05/14/17 [History] Insulin Detemir [Levemir Flextouch] 44 units SUBCUT WITHBREAKFAST 05/14/17 [ History] buPROPion HCl [Wellbutrin Xl] 300 mg PO DAILY 05/14/17 [History] Past Medical History HEENT History: Reports: Sinusitis Cardiovascular History: Reports: CAD, Heart Failure, Hypertension Respiratory History: Reports: Bronchitis, Recurrent Gastrointestinal History: Reports: Other (See Below) Other Gastrointestinal History: perforated sigmoid colon Genitourinary History: Reports: Other (See Below) Other Genitourinary History: hs of surgery on kidney, pt unaware of why Musculoskeletal History: Reports: Osteoarthritis Psychiatric History: Reports: Anxiety, Depression Endocrine/Metabolic History: Reports: Diabetes, Type II Hematologic History: Reports: None - Past Surgical History Cardiovascular Surgical History: Reports: Carotid Stents GI Surgical History: Reports: Appendectomy, Colonoscopy, Colostomy, Hernia, Abdominal, Hernia Repair/Other, Lysis of Adhesions, Polypectomy Neurological Surgical History: Reports: Other (See Below) Musculoskeletal Surgical History: Reports: Hip Replacement, Knee Replacement Oncologic Surgical History: Reports: None Dermatological Surgical History: Reports: None Social & Family History - Family History Family Medical History: Noncontributory Cardiac: Reports: CAD, Heart Failure, Hypertension Neurological: Reports: Cerebral Aneurysms - Tobacco Use Smoking Status *Q: Never Smoker Years of Tobacco use: 40 Packs/Tins Daily: 2 Used Tobacco, but Quit: No Second Hand Smoke Exposure: Yes - Caffeine Use Caffeine Use: Reports: Coffee - Alcohol Use Days Per Week of Alcohol Use: 1 Number of Drinks Per Day: 4 Total Drinks Per Week: 4 - Recreational Drug Use Recreational Drug Use: No - Sexual History Sexual History: Reports: None - Living Situation & Occupation Living situation: Reports: , Single, with Significant Other Occupation: Employed H&P Review of Systems - Review of Systems: Review Of Systems: See Below General: Reports: Malaise, Weakness, Decreased Appetite. Denies: Fever, Chills HEENT: Reports: No Symptoms Pulmonary: Reports: Shortness of Breath. Denies: Wheezing, Cough Cardiovascular: Reports: Edema. Denies: Chest Pain, Lightheadedness Gastrointestinal: Reports: Abdominal Pain, Nausea, Vomiting, Other (colostomy intact) Genitourinary: Reports: No Symptoms Musculoskeletal: Reports: No Symptoms Skin: Reports: Bruising Psychiatric: Reports: No Symptoms Neurological: Reports: No Symptoms Exam - Exam Exam: See Below - Vital Signs Vital Signs: Last Vital Signs Temp 98.7 F 05/15/17 07:47 Pulse 105 H 05/15/17 07:47 Resp 20 05/15/17 07:47 BP 143/63 H 05/15/17 07:47 Pulse Ox 96 05/15/17 07:47 Weight: 301 lb 1.6 oz - Exam General: Alert, Oriented HEENT: Conjunctiva Clear, Nares Patent, Posterior Pharynx Clear Neck: Supple Lungs: Decreased Breath Sounds Cardiovascular: Irregular Rhythm GI/Abdominal Exam: Tender, Abnormal Bowel Sounds (hypoactive bowel sounds; much bruising noted on her abdomen), Other (midline incision intact; colostomy noted to have dark green stool; MIGNON drain to right abdomen intact) Back Exam: Normal Inspection Extremities: Other (patient has generalized 3+ edema, pitting to lower extremities) Skin: Incision Neuro Extensive - Mental Status: Alert, Oriented x3 Psychiatric: Alert, Normal Affect, Normal Mood - Patient Data Lab Results Last 24 hrs: Laboratory Results - last 24 hr 05/14/17 05/14/17 05/15/17 Range/Units 17:11 19:41 07:15 WBC 10.4 H (5.0-10.0) 10^3/uL RBC 2.94 L (4.00-5.50) 10^6/uL Hgb 8.3 L (12.0-16.0) g/dL Hct 27.3 L (37.0-47.0) % MCV 92.9 (82.0-94.0) fL MCH 28.2 (27.0-32.0) pg MCHC 30.4 L (33.0-38.0) g/dL RDW Coeff of Taniya 18.5 H (11.0-15.0) % Plt Count 713 H (150-400) 10^3/uL Neut % (Auto) 56.6 (35-85) % Lymph % (Auto) 24.8 (10-55) % Frio % (Auto) 13.5 (0-16) % Eos % (Auto) 4.8 (0-5) % Baso % (Auto) 0.3 (0-3) % Neut # (Auto) 5.90 (1.80-7.00) 10^3/uL Lymph # (Auto) 2.59 (1.00-4.80) 10^3/uL Frio # (Auto) 1.41 H (0.00-0.80) 10^3/uL Eos # (Auto) 0.50 H (0.00-0.45) 10^3/uL Baso # (Auto) 0.03 10^3/uL Sodium (136-145) mEq/L Potassium (3.5-5.0) mEq/L Chloride (98-106) mEq/L Carbon Dioxide (21-32) mmol/L BUN (7-18) mg/dL Creatinine (0.6-1.0) mg/dL Est Cr Clr Drug Dosing mL/min Estimated GFR (MDRD) (>=60) mL/min Glucose (75-99) mg/dL POC Glucose 158 H 148 H (75-105) mg/dl Calcium (8.4-10.1) mg/dL Total Bilirubin (0.0-1.0) mg/dL AST (15-37) U/L ALT (12-78) U/L Alkaline Phosphatase (46-116) U/L C-Reactive Protein (0.2-0.8) mg/dL NT-Pro-B Natriuret Pep (0-1000) pg/mL Total Protein (6.4-8.2) g/dL Albumin (3.4-5.0) g/dL 05/15/17 05/15/17 Range/Units 07:15 07:18 WBC (5.0-10.0) 10^3/uL RBC (4.00-5.50) 10^6/uL Hgb (12.0-16.0) g/dL Hct (37.0-47.0) % MCV (82.0-94.0) fL MCH (27.0-32.0) pg MCHC (33.0-38.0) g/dL RDW Coeff of Taniya (11.0-15.0) % Plt Count (150-400) 10^3/uL Neut % (Auto) (35-85) % Lymph % (Auto) (10-55) % Frio % (Auto) (0-16) % Eos % (Auto) (0-5) % Baso % (Auto) (0-3) % Neut # (Auto) (1.80-7.00) 10^3/uL Lymph # (Auto) (1.00-4.80) 10^3/uL Frio # (Auto) (0.00-0.80) 10^3/uL Eos # (Auto) (0.00-0.45) 10^3/uL Baso # (Auto) 10^3/uL Sodium 139 (136-145) mEq/L Potassium 3.6 (3.5-5.0) mEq/L Chloride 103 (98-106) mEq/L Carbon Dioxide 30 (21-32) mmol/L BUN 12 D (7-18) mg/dL Creatinine 1.1 H (0.6-1.0) mg/dL Est Cr Clr Drug Dosing 47.32 mL/min Estimated GFR (MDRD) 49 L (>=60) mL/min Glucose 122 H (75-99) mg/dL POC Glucose 116 H (75-105) mg/dl Calcium 7.6 L (8.4-10.1) mg/dL Total Bilirubin 0.3 (0.0-1.0) mg/dL AST 13 L (15-37) U/L ALT 8 L (12-78) U/L Alkaline Phosphatase 61 (46-116) U/L C-Reactive Protein 10.5 H (0.2-0.8) mg/dL NT-Pro-B Natriuret Pep 2356 H (0-1000) pg/mL Total Protein 5.4 L (6.4-8.2) g/dL Albumin 1.7 L (3.4-5.0) g/dL Result Diagrams: 05/15/17 07:15 05/15/17 07:15 *Q Meaningful Use (ADM) - VTE *Q VTE Criteria *Q: - Stroke *Q Stroke Criteria *Q: - AMI *Q AMI Criteria *Q: - Problem List (1) S/P colectomy SNOMED Code(s): 907847106, 93444360, 300857665 ICD Code: Z90.49 - ACQUIRED ABSENCE OF OTHER SPECIFIED PARTS OF DIGESTIVE TRACT Status: Acute Priority: High Current Visit: Yes (2) Perforation bowel SNOMED Code(s): 96092555 ICD Code: K63.1 - PERFORATION OF INTESTINE (NONTRAUMATIC) Status: Acute Priority: High Current Visit: Yes (3) Coronary arteriosclerosis, CAD SNOMED Code(s): 77645790 ICD Code: I25.10 - ATHSCL HEART DISEASE OF [place] CORONARY ARTERY W/O ANG PCTRS Status: Chronic Priority: Medium Current Visit: Yes (4) Diabetes mellitus type 2 SNOMED Code(s): 21750413 ICD Code: E11.9 - TYPE 2 DIABETES MELLITUS WITHOUT COMPLICATIONS Status: Chronic Priority: High Current Visit: Yes (5) HTN, Benign essential hypertension SNOMED Code(s): 6071728 ICD Code: I10 - ESSENTIAL (PRIMARY) HYPERTENSION Status: Chronic Priority : Medium Current Visit: Yes Problem List Initiated/Reviewed/Updated: Yes Orders Last 24hrs: Active Orders 24 hr Category Date Time Status Patient Status [ADT] Routine ADT 05/14/17 13:57 Active Blood Glucose Check, Bedside [RC] 0730,1130,1700,2000 Care 05/14/17 15:21 Active Communication Order [RC] DAILY Care 05/14/17 15:25 Inactive Communication Order [RC] DAILY Care 05/15/17 08:00 Active Communication Order [RC] ROUTINE Care 05/14/17 13:57 Active Communication Order [RC] ROUTINE Care 05/14/17 14:06 Active Ostomy Assessment [RC] Care 05/14/17 13:57 Active Oxygen Therapy [RC] .PRN Care 05/14/17 13:57 Active RT Aerosol Therapy [RC] Care 05/14/17 14:13 Active Up With Assistance [RC] .PRN Care 05/14/17 13:57 Active Vital Signs [RC] Care 05/14/17 13:57 Active Wound Care [RC] Care 05/14/17 13:57 Active PT Evaluation and Treatment [CONS] Routine Cons 05/14/17 13:57 Active Consistent Carbohydrate Diet [DIET] Diet 05/14/17 Dinner Active ALPRAZolam [Xanax] Med 05/14/17 20:00 Active 0.5 mg PO BEDTIME Acetaminophen [Tylenol] Med 05/14/17 13:57 Active 650 mg PO Q4H PRN Albuterol/Ipratropium [DuoNeb 3.0-0.5 MG/3 ML] Med 05/14/17 14:09 Active 3 ml NEB QIDRT PRN Allopurinol [Zyloprim] Med 05/15/17 08:00 Active 100 mg PO DAILY Aspirin Med 05/15/17 08:00 Active 81 mg PO DAILY Budesonide [Pulmicort] Med 05/14/17 20:00 Active 0.5 mg NEB BIDRT Carvedilol [Coreg] Med 05/14/17 20:00 Active 3.125 mg PO BID Cefuroxime [Ceftin] Med 05/14/17 17:30 Active 500 mg PO BIDMEALS Diltiazem [Cardizem CD] Med 05/15/17 08:00 Active 240 mg PO DAILY Docusate Sodium [Colace] Med 05/14/17 14:16 Active 100 mg PO DAILY PRN Enoxaparin [Lovenox] Med 05/15/17 12:45 Ordered 40 mg SUBCUT Q24H Fluconazole [Diflucan] Med 05/14/17 20:00 Active 400 mg PO BID Furosemide [Lasix] Med 05/15/17 08:00 Active 80 mg PO DAILY Gabapentin [Neurontin] Med 05/14/17 20:00 Active 100 mg PO TID Insulin Aspart [NovoLOG] Med 05/15/17 12:00 Active See Protocol SUBCUT TIDMEALS Insulin Detemir [Levemir] Med 05/15/17 08:00 Active 44 unit SUBCUT WITHBREAKFAST Insulin Detemir [Levemir] Med 05/15/17 20:00 Active 48 unit SUBCUT BEDTIME Losartan [Cozaar] Med 05/15/17 08:00 Active 100 mg PO DAILY Metoclopramide [Reglan] Med 05/14/17 14:09 Active 5 mg PO Q8H PRN Ondansetron [Zofran ODT] Med 05/14/17 13:57 Active 4 mg PO Q4H PRN Ondansetron [Zofran ODT] Med 05/14/17 14:09 Active 8 mg PO BID PRN Pantoprazole [ProTONIX] Med 05/15/17 08:00 Active 40 mg PO DAILY Polyethylene Glycol 3350 [MiraLAX] Med 05/15/17 08:00 Active 17 gm PO DAILY Sodium Chloride 0.9% [Saline Flush] Med 05/14/17 20:28 Active 10 ml FLUSH ASDIRECTED PRN buPROPion [Wellbutrin XL] Med 05/15/17 08:00 Active 300 mg PO DAILY metroNIDAZOLE [Flagyl] Med 05/14/17 14:15 Active 500 mg PO Q8H oxyCODONE Med 05/14/17 14:09 Active 5 mg PO Q4H PRN Saline Lock Insert [OM.PC] Routine Oth 05/14/17 20:28 Ordered Resuscitation Status Routine Resus Stat 05/14/17 13:57 Ordered Medication Orders Acetaminophen (Tylenol) 650 mg PO Q4H PRN PRN Reason: Pain (Mild 1-3)/fever Last Admin: 05/14/17 19:55 Dose: 650 mg Albuterol/Ipratropium (Duoneb 3.0-0.5 Mg/3 Ml) 3 ml NEB QIDRT PRN PRN Reason: Dyspnea Allopurinol (Zyloprim) 100 mg PO DAILY [facility] Last Admin: 05/15/17 07:43 Dose: 100 mg Alprazolam (Xanax) 0.5 mg PO BEDTIME [facility] Last Admin: 05/14/17 19:54 Dose: 0.5 mg Aspirin (Aspirin) 81 mg PO DAILY [facility] Last Admin: 05/15/17 07:42 Dose: 81 mg Budesonide (Pulmicort) 0.5 mg NEB BIDRT [facility] Last Admin: 05/15/17 07:43 Dose: 0.5 mg Admin: 05/14/17 19:54 Dose: 0.5 mg Bupropion HCl (Wellbutrin Xl) 300 mg PO DAILY [facility] Last Admin: 05/15/17 07:41 Dose: 300 mg Carvedilol (Coreg) 3.125 mg PO BID [facility] Last Admin: 05/15/17 07:42 Dose: 3.125 mg Admin: 05/14/17 19:54 Dose: 3.125 mg Cefuroxime Axetil (Ceftin) 500 mg PO BIDMEALS [facility] Last Admin: 05/15/17 07:42 Dose: 500 mg Admin: 05/14/17 17:46 Dose: 500 mg Diltiazem HCl (Cardizem Cd) 240 mg PO DAILY [facility] Last Admin: 05/15/17 07:40 Dose: 240 mg Docusate Sodium (Colace) 100 mg PO DAILY PRN PRN Reason: Constipation Enoxaparin Sodium (Lovenox) 40 mg SUBCUT Q24H [facility] Fluconazole (Diflucan) 400 mg PO BID [facility] Last Admin: 05/15/17 07:41 Dose: 400 mg Admin: 05/14/17 19:54 Dose: 400 mg Furosemide (Lasix) 80 mg PO DAILY [facility] Last Admin: 05/15/17 07:42 Dose: 80 mg Gabapentin (Neurontin) 100 mg PO TID [facility] Last Admin: 05/15/17 07:41 Dose: 100 mg Admin: 05/14/17 19:53 Dose: 100 mg Insulin Aspart (Novolog) 0 unit SUBCUT TIDMEALS [facility] PRN Reason: Protocol Insulin Detemir (Levemir) 44 unit SUBCUT WITHBREAKFAST [facility] Last Admin: 05/15/17 07:47 Dose: 44 unit Insulin Detemir (Levemir) 48 unit SUBCUT BEDTIME [facility] Losartan Potassium (Cozaar) 100 mg PO DAILY [facility] Last Admin: 05/15/17 07:41 Dose: 100 mg Metoclopramide HCl (Reglan) 5 mg PO Q8H PRN PRN Reason: nausea Metronidazole (Flagyl) 500 mg PO Q8H [facility] Last Admin: 05/15/17 06:02 Dose: 500 mg Admin: 05/14/17 22:15 Dose: 500 mg Admin: 05/14/17 15:02 Dose: 500 mg Ondansetron HCl (Zofran Odt) 4 mg PO Q4H PRN PRN Reason: nausea, able to take PO Last Admin: 05/15/17 07:54 Dose: 4 mg Admin: 05/14/17 17:25 Dose: 4 mg Ondansetron HCl (Zofran Odt) 8 mg PO BID PRN PRN Reason: Nausea/Vomiting Oxycodone HCl (Oxycodone) 5 mg PO Q4H PRN PRN Reason: Pain Last Admin: 05/15/17 08:57 Dose: 5 mg Admin: 05/15/17 04:55 Dose: 5 mg Admin: 05/14/17 15:02 Dose: 5 mg Pantoprazole Sodium (Protonix) 40 mg PO DAILY [facility] Last Admin: 05/15/17 07:40 Dose: 40 mg Polyethylene Glycol (Miralax) 17 gm PO DAILY [facility] Last Admin: 05/15/17 07:43 Dose: 17 gm Sodium Chloride (Saline Flush) 10 ml FLUSH ASDIRECTED PRN PRN Reason: Keep Vein Open Assessment/Plan Comment:: Admit to swing bed. Continue Flagyl, Ceftin and Diflucan. Colostomy cares. Glucoscans with sliding scale insulin as directed. Irrigate MIGNON drain daily. PT as directed. Dr. Oliveira aware of admission.
[2017-05-15] MEDS: Insulin Aspart 100 Units/ML 3 ML Pen SUBCUT SCH ×2 (13:01→17:38)
[2017-05-15] MEDS: Enoxaparin 40 MG/0.4 ML Syringe SUBCUT SCH (13:48)
[2017-05-15] MEDS ORDERED: Insulin Detemir 100 Units/ML 3 ML Pen SUBCUT SCH (20:00)
[2017-05-15] MEDS: ALPRAZolam 0.25 MG Tab PO SCH (20:03)
[2017-05-16] MEDS: metroNIDAZOLE 500 MG Tab PO SCH ×3 (05:19→21:56)
[2017-05-16] MEDS: Ondansetron 4 MG Tab.DIS PO PRN (05:25)
[2017-05-16] MEDS: Polyethylene Glycol 3350 Powder 17 GM Packet PO SCH (07:42)
[2017-05-16] MEDS: Budesonide 0.5 MG/2 ML Neb Susp NEB SCH ×2 (07:42→20:30)
[2017-05-16] MEDS: Fluconazole 100 MG Tab PO SCH ×2 (07:43→20:46)
[2017-05-16] MEDS: Carvedilol 3.125 MG Tab PO SCH ×2 (07:43→20:46)
[2017-05-16] MEDS: Furosemide 80 MG Tab PO SCH (07:43)
[2017-05-16] MEDS: buPROPion 150 MG Tab.ER PO SCH (07:43)
[2017-05-16] MEDS: Allopurinol 100 MG Tab PO SCH (07:44)
[2017-05-16] MEDS: Cefuroxime 250 MG Tab PO SCH ×2 (07:44→17:43)
[2017-05-16] MEDS: Diltiazem 120 MG Cap.CD PO SCH (07:44)
[2017-05-16] MEDS: Losartan 100 MG Tab PO SCH (07:44)
[2017-05-16] MEDS: Pantoprazole 40 MG Tab.CR PO SCH (07:44)
[2017-05-16] MEDS: Aspirin 81 MG Tab.Chew PO SCH (07:45)
[2017-05-16] MEDS: Gabapentin 100 MG Cap PO SCH ×3 (07:45→20:46)
[2017-05-16] MEDS: Insulin Aspart 100 Units/ML 3 ML Pen SUBCUT SCH ×3 (07:46→18:08)
[2017-05-16] MEDS: Insulin Detemir 100 Units/ML 3 ML Pen SUBCUT SCH (09:57)
[2017-05-16] MEDS: oxyCODONE 5 MG Tab PO PRN (10:09)
[2017-05-16] MEDS: Enoxaparin 40 MG/0.4 ML Syringe SUBCUT SCH (13:17)
[2017-05-16] MEDS ORDERED: Furosemide 40 MG/4 ML VIAL IVPUSH SCH (14:00)
[2017-05-16] MEDS: Ondansetron 8 MG in Sodium Chloride 0.9% 50 ML IV PRN (15:37)
[2017-05-16] MEDS ORDERED: Calcium Carbonate 500 MG Tab.Chew PO PRN (16:12)
[2017-05-16] MEDS ORDERED: Lactated Ringers 1,000 ML IV SCH (19:30)
[2017-05-16] MEDS ORDERED: Sodium Chloride 0.45% 1,000 ML IV SCH (20:00)
[2017-05-16] MEDS: Pantoprazole 40 MG Vial IVPUSH SCH (20:23)
[2017-05-16] MEDS: ALPRAZolam 0.25 MG Tab PO SCH (20:46)
--- NOTE | 2017-05-16 22:56 | PN ---
DATE: 05/16/2017 ADMISSION DIAGNOSIS: Perforated diverticulum of the large intestine. HISTORY OF PRESENT ILLNESS: Lucila is a 72-year-old female who was admitted to [facility] care from [place] in [place] after undergoing exploratory laparotomy, peritoneal lavage, sigmoid colectomy with end-colostomy secondary to ruptured diverticulum. She has been having a lot of nausea and vomiting since being admitted. She did present with significant amount of pedal edema as well. Today, she continued to have vomiting which she was given IV Zofran; however, she did get no relief from this. Our nursing staff do state that about 10 o'clock this morning even after they did change her colostomy, they had no further output of the colostomy all day long. Lucila states that she has never had any discomfort presently; however, she is having three or four episodes of emesis since the change in the colostomy. She has been trying to push fluids. She has been afebrile. She has been ambulatory ambulating short distance; however, she has been significantly weak since admission. On admission, her weight was noted to be up 37 pounds since her discharge to undergo the exploratory laparotomy. O: VITAL SIGNS: Blood pressure is 139/48, prior to that blood pressure was 117/47; O2 is 96% on room air; respiratory rate 18; pulse 74; temp is 100.3. She has been running a low-grade fever since admission. She has been running anywhere from 101 to being afebrile. GENERAL: Pleasant, cooperative female. She is sitting in the chair and does not really appear to be in any distress, having normal conversation, answering all questions appropriately. HEENT: Grossly unremarkable. LUNGS: Clear to auscultation. ABDOMEN: Bowel sounds are hypoactive; however, they are audible in all four quadrants. Colostomy does not show any output. Abdomen shows minimal tenderness where open wound is however, otherwise, there is no purulent drainage. She does have a MIGNON bulb in the right flank area which had about 12 mL of output today. EXTREMITIES: 3+ pedal edema bilaterally. ASSESSMENT: 1. STATUS POST EXPLORATORY LAPAROTOMY WITH PERITONEAL LAVAGE AND SIGMOID COLECTOMY WITH END-COLOSTOMY. 2. SMALL BOWEL OBSTRUCTION. 3. CONGESTIVE HEART FAILURE WITH 3+ PEDAL EDEMA. P: I did consult to Dr. Kelvin Oliveira in regard to Lucila's condition. I did spend 20 to 30 minutes in discussion with Lucila and her daughter in regard to her current condition. I did discuss the transfer back to [facility] in [place], which Lucila is very reluctant to do at this point in time. She has on multiple occasions verbalized that she wants everything possible done and all conservative treatments attempted here prior to any transfer. I did discuss with her in detail about NG tube placement versus becoming n.p.o., also her status with declining in which she verbalized complete understanding. Again stated that she does not want to be transferred at this point in time. She again wants to try all conservative treatments initially. Her daughter is present. She did verbalize an understanding of her mother's wishes. She is a code 2 status presently. We are going to go ahead and proceed with NG tube placement at this point in time, we will put her to low intermittent suction. We will keep her n.p.o. through the evening and give her 75 mL an hour of LR. I did discuss with her. We will re-look at her in the morning and possibly give another dose of IV Lasix. Dr. Oliveira is aware of her current condition again. DEREK/MODL /[id number]
[2017-05-17] MEDS: metroNIDAZOLE 500 MG Tab PO SCH (05:37)
[2017-05-17] MEDS: Sodium Chloride 0.9% 1,000 ML IV SCH (05:43)
[2017-05-17] MEDS ORDERED: Sodium Chloride 0.9% 1,000 ML IV SCH (08:15)
[2017-05-17] MEDS: Budesonide 0.5 MG/2 ML Neb Susp NEB SCH ×2 (08:46→20:45)
[2017-05-17] MEDS: cefTRIAXone 1 GM Vial IVPUSH SCH (08:51)
[2017-05-17] MEDS: Ondansetron 8 MG in Sodium Chloride 0.9% 50 ML IV PRN (08:57)
[2017-05-17] MEDS: Diltiazem 120 MG Cap.CD PO SCH (09:02)
[2017-05-17] MEDS: Cefuroxime 250 MG Tab PO SCH (09:02)
[2017-05-17] MEDS: Aspirin 81 MG Tab.Chew PO SCH (09:02)
[2017-05-17] MEDS: Losartan 100 MG Tab PO SCH (09:02)
[2017-05-17] MEDS: Carvedilol 3.125 MG Tab PO SCH ×2 (09:02→20:47)
[2017-05-17] MEDS: Allopurinol 100 MG Tab PO SCH (09:03)
[2017-05-17] MEDS: Gabapentin 100 MG Cap PO SCH ×3 (09:03→20:46)
[2017-05-17] MEDS: Fluconazole 100 MG Tab PO SCH (09:03)
[2017-05-17] MEDS: Polyethylene Glycol 3350 Powder 17 GM Packet PO SCH (09:03)
[2017-05-17] MEDS: buPROPion 150 MG Tab.ER PO SCH (09:03)
[2017-05-17] MEDS: metroNIDAZOLE/Normal Saline 500 MG in Premix Bag 1 BAG IV SCH ×2 (09:31→16:05)
[2017-05-17] MEDS: Fluconazole/Normal Saline 200 MG in Premix Bag 1 BAG IV SCH ×2 (10:47→20:47)
[2017-05-17] MEDS: Enoxaparin 40 MG/0.4 ML Syringe SUBCUT SCH (13:17)
[2017-05-17] MEDS: Pantoprazole 40 MG Vial IVPUSH SCH (20:45)
[2017-05-17] MEDS: ALPRAZolam 0.25 MG Tab PO SCH (20:47)
[2017-05-18] MEDS: metroNIDAZOLE/Normal Saline 500 MG in Premix Bag 1 BAG IV SCH ×2 (00:30→07:56)
[2017-05-18] MEDS: fentaNYL 100 MCG/2 ML SDV IVPUSH PRN ×3 (01:16→15:01)
[2017-05-18] MEDS: Sodium Chloride 0.9% 1,000 ML IV SCH (06:22)
[2017-05-18] MEDS: cefTRIAXone 1 GM Vial IVPUSH SCH (07:47)
[2017-05-18] MEDS: Budesonide 0.5 MG/2 ML Neb Susp NEB SCH (07:58)
[2017-05-18] MEDS: Fluconazole/Normal Saline 200 MG in Premix Bag 1 BAG IV SCH (09:11)
[2017-05-18] MEDS: Diltiazem 120 MG Cap.CD PO SCH (09:12)
[2017-05-18] MEDS: Aspirin 81 MG Tab.Chew PO SCH (09:12)
[2017-05-18] MEDS: Gabapentin 100 MG Cap PO SCH ×2 (09:13→15:03)
[2017-05-18] MEDS: Losartan 100 MG Tab PO SCH (09:13)
[2017-05-18] MEDS: Allopurinol 100 MG Tab PO SCH (09:13)
[2017-05-18] MEDS: buPROPion 150 MG Tab.ER PO SCH (09:13)
[2017-05-18] MEDS: Polyethylene Glycol 3350 Powder 17 GM Packet PO SCH (09:13)
[2017-05-18] MEDS: Carvedilol 3.125 MG Tab PO SCH (09:13)
[2017-05-18] MEDS: Enoxaparin 40 MG/0.4 ML Syringe SUBCUT SCH (12:56)
[2017-05-18 14:18] VITALS: BP 157/53
[2017-05-18] MEDS ORDERED: Ondansetron 4 MG/2 ML SDV ONE (14:59)
--- NOTE | 2017-05-18 15:36 | PCM.SN ---
- Free Text/Narrative Note: CT Abdomen/pelvis results received. CT shows low grade SBO. Discussed findings with Dr. Oliveira, who recommend consultation with [facility]. Called and spoke with Dr. Russell ([facility]), who felt that transfer is reasonable and accepted the patient for transfer. Patient will be transferred via [facility] to [facility].
--- NOTE | 2017-05-18 16:14 | PCM.DCSUM1 ---
Discharge Summary - Hospital Course HPI Initial Comments: Lucila is a 72 year old female who was admitted to swing bed on 05/14/2017 after being discharged from [facility]. She underwent exploratory laparotomy, peritoneal lavage, sigmoid colectomy with end colostomy (montana's procedure) as a result of a perforated diverticulum. While hospitalized there, she developed an ileus. Subsequent CT abd/pelvis also showed a fluid collection in the pelvis, which was found to be fungal in nature. A MIGNON drain was placed. She was able to have her NG tube removed when the ileus resolved. She tolerated diet advancement at [place], but continued to have intermittent nausea and vomiting. Colostomy was having good output. At time of admission patient was up 37#. She had generalized edema. Her lasix had been on hold. Throughout swing bed stay, patient developed worsening abdominal pain, nausea, and vomiting. One day following admission, nursing staff noted that after changing her colostomy, she had no output the remainder of the day. Abdominal Xray showed SBO. NG tube was placed and conservative management was attempted. IVF were restarted. SBO was followed for 2 days with abdominal xrays. Did appear to be improving. On 05/18/2017, patient was still having nausea and vomiting. Was having low output from MIGNON drain. Some output out of colostomy. NG tube was still putting out quite a bit. Dr. Oliveira requested contacting surgical team at [place] for potential transfer. She was not tolerating diet well since admission, had continued abdominal pain, nausea, vomiting and SBO due to adhesions. Spoke with surgical team at [place], who accepted her for transfer back. Discussed with patient that this would be best option in case SBO did not resolve completely with conservative measures. - Discharge Data Discharge Date: 05/18/17 Discharge Disposition: DC/Tfer to Acute Hospital 02 Condition: Good - Discharge Diagnosis/Problem(s) (1) Small bowel obstruction due to adhesions SNOMED Code(s): 560356780 ICD Code: K56.50 - INTESTNL ADHESIONS, UNSP TO PARTIAL VERSUS COMPLETE OBST Status: Acute (2) Palliative care patient SNOMED Code(s): 599667921 ICD Code: Z51.5 - ENCOUNTER FOR PALLIATIVE CARE Status: Acute (3) S/P colectomy SNOMED Code(s): 894939428, 35302572, 569812962 ICD Code: Z90.49 - ACQUIRED ABSENCE OF OTHER SPECIFIED PARTS OF DIGESTIVE TRACT Status: Acute Priority: High (4) Diabetes mellitus type 2 SNOMED Code(s): 96301819 ICD Code: E11.9 - TYPE 2 DIABETES MELLITUS WITHOUT COMPLICATIONS Status: Chronic Priority: High (5) Thrombocytosis SNOMED Code(s): 9554261 ICD Code: D47.3 - ESSENTIAL (HEMORRHAGIC) THROMBOCYTHEMIA Status: Acute (6) HTN, Benign essential hypertension SNOMED Code(s): 5746820 ICD Code: I10 - ESSENTIAL (PRIMARY) HYPERTENSION Status: Chronic Priority : Medium - Patient Summary/Data Consults: Consultations 05/14/17 13:57 PT Evaluation and Treatment [CONS] Routine - Patient Instructions Diet: NPO Activity: As Tolerated - Discharge Plan Home Medications: Home Meds Pantoprazole [ProTONIX] 40 mg PO DAILY 45 Days tab.cr 11/26/13 [Rx] Carvedilol [Coreg] 3.125 mg PO BID #60 tablet 06/16/15 [Rx] Furosemide [Lasix] 80 mg PO DAILY #30 tablet 06/16/15 [Rx] Insulin Detemir [Levemir Flextouch] 44 unit SQ WITHBREAKFAST 08/19/15 [History] Insulin Detemir [Levemir Flextouch] 48 unit SUBCUT BEDTIME 08/19/15 [History] Diltiazem HCl [Cardizem Cd] 240 mg PO DAILY #0 08/25/15 [Rx] Valsartan 160 mg PO DAILY #0 12/30/15 [Rx] ALPRAZolam [Xanax] 0.5 mg PO BEDTIME 05/10/16 [History] Docusate Sodium [Colace] 100 mg PO DAILY PRN 11/03/16 [History] Acetaminophen 1 - 2 tab PO Q4H PRN 11/05/16 [History] Aspirin 81 mg PO DAILY 11/05/16 [History] Allopurinol [Zyloprim] 100 mg PO DAILY 04/21/17 [History] Gabapentin [Neurontin] 100 mg PO TID 05/14/17 [History] Insulin Aspart [NovoLOG] 22 units SUBCUT WITHBREAKFAST 05/14/17 [History] Insulin Aspart [NovoLOG] 25 units SUBCUT 1200,1730 05/14/17 [History] Insulin Detemir [Levemir Flextouch] 44 units SUBCUT WITHBREAKFAST 05/14/17 [ History] buPROPion HCl [Wellbutrin Xl] 300 mg PO DAILY 05/14/17 [History] - Discharge Summary/Plan Comment Discharge Summary/Plan Comment: Patient will be transferred ALS via [facility] to [facility]. - General Info Date of Service: 05/18/17 Admission Dx/Problem (Free Text: Admission Diagnosis/Problem Admission Diagnosis/Problem Perforated diverticulum of large intestine Subjective Update: Patient has continued nausea and abdominal pain. NG tube has had 500 mL output this morning. Has been NPO. Functional Status: Reports: Pain Controlled, Ambulating. Denies: Tolerating Diet - Review of Systems General: Reports: Weakness, Fatigue. Denies: Fever, Chills, Appetite HEENT: Reports: Sore Throat, Other (NG tube) Pulmonary: Reports: Shortness of Breath Cardiovascular: Reports: Dyspnea on Exertion, Edema, Lightheadedness Gastrointestinal: Reports: Abdominal Pain, Decreased Appetite, Nausea. Denies: Vomiting Genitourinary: Reports: No Symptoms, Other (spencer) - Patient Data Vitals - Most Recent: Last Vital Signs Temp 99.7 F 05/18/17 14:00 Pulse 99 05/18/17 14:00 Resp 20 05/18/17 14:00 BP 157/53 H 05/18/17 14:00 Pulse Ox 100 05/18/17 14:00 Weight - Most Recent: 301 lb 1.6 oz I&O - Last 24 hours: Intake & Output 05/18/17 05/18/17 05/18/17 06:59 14:59 22:59 Intake Total 125 Output Total 625 550 Balance -500 -550 Lab Results - Last 24 hrs: Laboratory Results - last 24 hr 05/17/17 05/17/17 05/18/17 Range/Units 17:21 20:13 07:00 WBC 8.5 (5.0-10.0) 10^3/uL RBC 2.88 L (4.00-5.50) 10^6/uL Hgb 8.1 L (12.0-16.0) g/dL Hct 26.8 L (37.0-47.0) % MCV 93.1 (82.0-94.0) fL MCH 28.1 (27.0-32.0) pg MCHC 30.2 L (33.0-38.0) g/dL RDW Coeff of Tanyia 19.4 H (11.0-15.0) % Plt Count 1021 H* (150-400) 10^3/uL Add Manual Diff Yes Neutrophils % (Manual) 54 (35-85) % Band Neutrophils % 3 (0-5) % Lymphocytes % (Manual) 36 (21-55) % Monocytes % (Manual) 6 (2-12) % Eosinophils % (Manual) 1 (0-5) % Absolute Neutrophils 4.85 (1.80-7.00) 10^3/uL Lymphocytes # (Manual) 3.06 (1.00-4.80) 10^3/uL Monocytes # (Manual) 0.51 (0.00-0.80) 10^3/uL Eosinophils # (Manual) 0.09 (0.00-0.45) 10^3/uL Platelet Estimate Marked inc H (ADEQUATE) Sodium (136-145) mEq/L Potassium (3.5-5.0) mEq/L Chloride (98-106) mEq/L Carbon Dioxide (21-32) mmol/L BUN (7-18) mg/dL Creatinine (0.6-1.0) mg/dL Est Cr Clr Drug Dosing mL/min Estimated GFR (MDRD) (>=60) mL/min Glucose (75-99) mg/dL POC Glucose 89 83 (75-105) mg/dl Calcium (8.4-10.1) mg/dL Total Bilirubin (0.0-1.0) mg/dL AST (15-37) U/L ALT (12-78) U/L Alkaline Phosphatase (46-116) U/L C-Reactive Protein (0.2-0.8) mg/dL Total Protein (6.4-8.2) g/dL Albumin (3.4-5.0) g/dL 05/18/17 Range/Units 07:00 WBC (5.0-10.0) 10^3/uL RBC (4.00-5.50) 10^6/uL Hgb (12.0-16.0) g/dL Hct (37.0-47.0) % MCV (82.0-94.0) fL MCH (27.0-32.0) pg MCHC (33.0-38.0) g/dL RDW Coeff of Taniya (11.0-15.0) % Plt Count (150-400) 10^3/uL Add Manual Diff Neutrophils % (Manual) (35-85) % Band Neutrophils % (0-5) % Lymphocytes % (Manual) (21-55) % Monocytes % (Manual) (2-12) % Eosinophils % (Manual) (0-5) % Absolute Neutrophils (1.80-7.00) 10^3/uL Lymphocytes # (Manual) (1.00-4.80) 10^3/uL Monocytes # (Manual) (0.00-0.80) 10^3/uL Eosinophils # (Manual) (0.00-0.45) 10^3/uL Platelet Estimate (ADEQUATE) Sodium 137 (136-145) mEq/L Potassium 3.9 (3.5-5.0) mEq/L Chloride 103 (98-106) mEq/L Carbon Dioxide 25 (21-32) mmol/L BUN 20 H D (7-18) mg/dL Creatinine 2.1 H D (0.6-1.0) mg/dL Est Cr Clr Drug Dosing 24.79 mL/min Estimated GFR (MDRD) 23 L (>=60) mL/min Glucose 101 H (75-99) mg/dL POC Glucose (75-105) mg/dl Calcium 7.9 L (8.4-10.1) mg/dL Total Bilirubin 0.3 (0.0-1.0) mg/dL AST 13 L (15-37) U/L ALT 8 L (12-78) U/L Alkaline Phosphatase 63 (46-116) U/L C-Reactive Protein 15.2 H (0.2-0.8) mg/dL Total Protein 5.5 L (6.4-8.2) g/dL Albumin 1.7 L (3.4-5.0) g/dL Med Orders - Current: Current Medications Acetaminophen (Tylenol) 650 mg PO Q4H PRN PRN Reason: Pain (Mild 1-3)/fever Last Admin: 05/14/17 19:55 Dose: 650 mg Albuterol/Ipratropium (Duoneb 3.0-0.5 Mg/3 Ml) 3 ml NEB QIDRT PRN PRN Reason: Dyspnea Last Admin: 05/17/17 05:48 Dose: 3 ml Allopurinol (Zyloprim) 100 mg PO DAILY [facility] Last Admin: 05/18/17 09:13 Dose: Not Given Alprazolam (Xanax) 0.5 mg PO BEDTIME [facility] Last Admin: 05/17/17 20:47 Dose: Not Given Aspirin (Aspirin) 81 mg PO DAILY [facility] Last Admin: 05/18/17 09:12 Dose: Not Given Budesonide (Pulmicort) 0.5 mg NEB BIDRT [facility] Last Admin: 05/18/17 07:58 Dose: 0.5 mg Bupropion HCl (Wellbutrin Xl) 300 mg PO DAILY [facility] Last Admin: 05/18/17 09:13 Dose: Not Given Calcium Carbonate/Glycine (Tums) 500 mg PO QID PRN PRN Reason: Dyspepsia Last Admin: 05/16/17 17:43 Dose: 500 mg Carvedilol (Coreg) 3.125 mg PO BID [facility] Last Admin: 05/18/17 09:13 Dose: Not Given Ceftriaxone Sodium (Rocephin) 1 gm IVPUSH Q24H [facility] Last Admin: 05/18/17 07:47 Dose: 1 gm Cefuroxime Axetil (Ceftin) 500 mg PO BIDMEALS [facility] Last Admin: 05/17/17 09:02 Dose: Not Given Diltiazem HCl (Cardizem Cd) 240 mg PO DAILY [facility] Last Admin: 05/18/17 09:12 Dose: Not Given Docusate Sodium (Colace) 100 mg PO DAILY PRN PRN Reason: Constipation Enoxaparin Sodium (Lovenox) 40 mg SUBCUT Q24H [facility] Last Admin: 05/18/17 12:56 Dose: 40 mg Fentanyl (Sublimaze) 25 - 50 mcg IVPUSH Q6H PRN PRN Reason: Pain Last Admin: 05/18/17 15:01 Dose: 50 mcg Fluconazole (Diflucan) 400 mg PO BID [facility] Last Admin: 05/17/17 09:03 Dose: Not Given Gabapentin (Neurontin) 100 mg PO TID [facility] Last Admin: 05/18/17 15:03 Dose: Not Given Ondansetron HCl 8 mg/ Sodium (Chloride) 54 mls @ 100 mls/hr IV Q6H PRN PRN Reason: Nausea Last Admin: 05/17/17 08:57 Dose: 100 mls/hr Sodium Chloride (Normal Saline) 1,000 mls @ 125 mls/hr IV ASDIRECTED [facility] Metronidazole 500 mg/ Premix 100 mls @ 100 mls/hr IV Q8H [facility] Last Admin: 05/18/17 07:56 Dose: 100 mls/hr Fluconazole/Sodium Chloride (200 mg/ Premix) 100 mls @ 100 mls/hr IV BID [facility] Last Admin: 05/18/17 09:11 Dose: 100 mls/hr Losartan Potassium (Cozaar) 100 mg PO DAILY [facility] Last Admin: 05/18/17 09:13 Dose: Not Given Metoclopramide HCl (Reglan) 5 mg PO Q8H PRN PRN Reason: nausea Last Admin: 05/16/17 10:08 Dose: 5 mg Metronidazole (Flagyl) 500 mg PO Q8H [facility] Last Admin: 05/17/17 05:37 Dose: Not Given Ondansetron HCl (Zofran Odt) 4 mg PO Q4H PRN PRN Reason: nausea, able to take PO Last Admin: 05/16/17 05:25 Dose: 4 mg Ondansetron HCl (Zofran Odt) 8 mg PO BID PRN PRN Reason: Nausea/Vomiting Last Admin: 05/16/17 10:08 Dose: 8 mg Oxycodone HCl (Oxycodone) 5 mg PO Q4H PRN PRN Reason: Pain Last Admin: 05/16/17 10:09 Dose: 5 mg Pantoprazole Sodium (Protonix Iv) 40 mg IVPUSH Q24H [facility] Last Admin: 05/17/17 20:45 Dose: 40 mg Polyethylene Glycol (Miralax) 17 gm PO DAILY [facility] Last Admin: 05/18/17 09:13 Dose: Not Given Sodium Chloride (Saline Flush) 10 ml FLUSH ASDIRECTED PRN PRN Reason: Keep Vein Open Discontinued Medications Acetaminophen (Tylenol) mg PO Q4H PRN PRN Reason: Pain Alprazolam (Xanax) Confirm Administered Dose 0.25 mg .ROUTE .STK-MED ONE Stop: 05/14/17 19:42 Last Admin: 05/14/17 19:53 Dose: Not Given Furosemide (Lasix) 80 mg PO DAILY [facility] Last Admin: 05/16/17 07:43 Dose: 80 mg Furosemide (Lasix) 40 mg IVPUSH BID@0800,1600 [facility] Last Admin: 05/16/17 13:17 Dose: 40 mg Lactated Ringer's (Ringers, Lactated) 1,000 mls @ 75 mls/hr IV ASDIRECTED [facility] Sodium Chloride (Sodium Chloride 0.45%) 1,000 mls @ 75 mls/hr IV ASDIRECTED [facility] Last Admin: 05/16/17 20:27 Dose: 75 mls/hr Sodium Chloride (Normal Saline) 1,000 mls @ 1 mls/hr IV ASDIRECTED [facility] Last Admin: 05/18/17 06:22 Dose: 13 mls/hr Insulin Aspart (Novolog) 25 unit SUBCUT 1200,1730 [facility] Last Admin: 05/14/17 18:00 Dose: Not Given Insulin Aspart (Novolog) 22 unit SUBCUT WITHBREAKFAST [facility] Last Admin: 05/15/17 09:00 Dose: Not Given Insulin Aspart (Novolog) 0 unit SUBCUT TIDMEALS [facility] PRN Reason: Protocol Last Admin: 05/16/17 18:08 Dose: Not Given Insulin Detemir (Levemir) 44 unit SUBCUT WITHBREAKFAST [facility] Last Admin: 05/16/17 09:57 Dose: Not Given Insulin Detemir (Levemir) 48 unit SUBCUT BEDTIME [facility] Last Admin: 05/14/17 20:42 Dose: Not Given Insulin Detemir (Levemir) 22 unit SUBCUT ONETIME ONE Stop: 05/14/17 20:27 Last Admin: 05/14/17 20:38 Dose: 22 units Insulin Detemir (Levemir) 48 unit SUBCUT BEDTIME [facility] Last Admin: 05/15/17 20:19 Dose: 24 units Ondansetron HCl (Zofran) Confirm Administered Dose 8 mg .ROUTE .STK-MED ONE Stop: 05/18/17 15:00 Last Admin: 05/18/17 15:09 Dose: Not Given Pantoprazole Sodium (Protonix) 40 mg PO DAILY [facility] Last Admin: 05/16/17 07:44 Dose: 40 mg - Exam General: Reports: Alert, Oriented Neck: Reports: Supple Lungs: Reports: Clear to Auscultation, Normal Respiratory Effort Cardiovascular: Reports: Regular Rate, Regular Rhythm GI/Abdominal Exam: Distended, Tender Extremities: Normal Range of Motion, Normal Capillary Refill, Pedal Edema Skin: Reports: Warm, Dry, Intact Neurological: Reports: No New Focal Deficit Psy/Mental Status: Reports: Alert, Normal Affect, Normal Mood *Q Meaningful Use (DIS) - VTE *Q VTE Criteria *Q: - Stroke *Q Stroke Criteria *Q: - AMI *Q AMI Criteria *Q:
--- NOTE | 2017-05-20 08:41 | PN ---
DATE: 05/18/2017 S: Lucila on , started showing signs of small-bowel obstruction. She was having some ongoing retching. Plain films confirmed multiple air-fluid levels and a small bowel obstruction. NG was placed over the last two days. Now she has done better in that regard. Initially, she had about 1100 out of her NG. Over the last 24 hours, only about 340. We have started her on IV fluids and replacing her losses. Creatinine compared to three days ago has gone up from 1.1 to 2.1. Her white count is stable but her platelet count which was high on admit and was 713 on the 1st time she checked, it is over a million now. CRP has elevated from 10.5 to 15.2. The patient is being treated for abscess in her abdomen, status post a partial colectomy for ruptured diverticulum. We did start her on IV antibiotics in the form of her Flagyl, Rocephin, and Diflucan. She has not spiked any temps and she feels much better from an abdominal standpoint. O: GENERAL: She is pleasant and cooperative, appears in no distress. LUNGS: Her lung sounds appear clear. NG tube is in place without any current output. ABDOMEN: Soft and for the most part, nontender. Bowel sounds are very diminished with a few tinkling sounds in her left upper and right upper quadrant. Colostomy is putting out a very small amount of darker stool. EXTREMITIES: Have 2 to 3+ edema which is consistent from the time she arrived back, in [place]. ASSESSMENT: 1. SMALL BOWEL OBSTRUCTION, IMPROVING. 2. POSTOP ABSCESS, STATUS POST PARTIAL COLECTOMY DUE TO RUPTURED DIVERTICULA. 3. ACUTE EXACERBATION OF CHRONIC RENAL FAILURE. 4. THROMBOCYTOSIS. P: I am going to get a repeat CT today. She has been adamant over the last two days that she does not want to be transferred back to [place] but I did tell her that, if this abscess is showing signs of worsening or enlargement, she may need to have another procedure, and she is willing to proceed with a CT for that reason; if there is anything that can be done nonsurgically, she really desires sustained caring and she understands the ramifications of this. We will continue to monitor urine output closely as the patient has over the last 12 hours, had excellent urine outputs of over 700 I believe. KEVIN/BAILEY /[id number]
== END 2017-05-18 15:50 | DRG 949 ==
LOC: CC.MS 12:47 → UNDOADMIN 12:47 → CC.MS 13:57
PROVIDERS: ADMIT Family Medicine; ATTEND Family Medicine
PROC: 0D9670Z Drainage of Stomach with Drainage Device, Via Natural or Artificial Opening (ICD-10-PCS; principal; 2017-05-16)
DX: Z48.815 Encounter for surgical aftercare following surgery on the digestive system (principal); K56.609 Unspecified intestinal obstruction, unspecified as to partial versus complete obstruction; T81.4XXA Infection following a procedure, initial encounter; K63.0 Abscess of intestine; Z93.3 Colostomy status; I25.10 Atherosclerotic heart disease of native coronary artery without angina pectoris; I11.0 Hypertensive heart disease with heart failure; I50.9 Heart failure, unspecified; M19.90 Unspecified osteoarthritis, unspecified site; F32.9 Major depressive disorder, single episode, unspecified; F41.9 Anxiety disorder, unspecified; E11.9 Type 2 diabetes mellitus without complications; Z88.8 Allergy status to other drugs, medicaments and biological substances; Z91.048 Other nonmedicinal substance allergy status; Z79.82 Long term (current) use of aspirin; Z79.4 Long term (current) use of insulin; Z79.899 Other long term (current) drug therapy; Z87.891 Personal history of nicotine dependence; D47.3 Essential (hemorrhagic) thrombocythemia
CPT/HCPCS: 36415; 51702; 74019; 74176; 80053; 82150; 82962; 83880; 85025; 86140; 94640; 97110-GP; 97161-GP; A9270-GY; C9113; J0696; J1450; J1650; J1815-GY; J1940; J2405; J3010; J7030; J7050

== ENCOUNTER 2017-05-29 09:47 | Inpatient (IN) | payer MEDICARE, OTHER ==
[2017-05-29] MEDS ORDERED: Albuterol/Ipratropium 3.0-0.5 MG/3 ML Neb Soln NEB PRN (14:09)
--- NOTE | 2017-05-29 17:13 | PCM.HP ---
H&P History of Present Illness - General Date of Service: 05/29/17 Admit Problem/Dx: Admission Diagnosis/Problem Admission Diagnosis/Problem Ileus Source of Information: Patient, Old Records History Limitations: Reports: No Limitations - History of Present Illness Initial Comments - Free Text/Narative: Patient admitted swing bed from [place] following an ileus. Patient had been here in swing bed following a colectomy with ostomy creation as a result of a perforated viscous. Had been on IV antibiotics and IV Diflucan as had developed an abscess that was fungal in nature. She had a MIGNON drain in the right upper quadrant which was removed now at [place]. While here in swing bed , patient continued to have ongoing nausea and developed an ileus following that bowel resection, thus was transferred back to [place] after an NG was placed. She did have a gouty flare in her right ankle that was treated with colchicine. At [place], was switched to prednisone as felt that colchicine could have contributed to acute kidney injury. Patient has been given considerable IV fluids over the last few weeks and because of her kidney disease and her albumin level, has had considerable third spacing of fluids, up over 40# from prior to surgery. Had renal ultrasound which was negative. Losartan has been on hold. Patient has had her NG removed, is tolerating food and fluids. States does well with Gas X and her scopolamine patch, controlling her nausea. Has had consistent soft stools from her colostomy. She denies breathing concerns, less wheezing and cough than previous. Does admit that her skin is raw to her abdomen, open areas from tape. Continues with wet to dry dressings to midline incision on her abdomen. Patient weak, only ambulating short distances with stand by assist. Duration of Symptoms: Reports: Week(s): Location: Reports: Abdomen Quality: Reports: Throbbing Severity: Moderate - Related Data Allergies/Adverse Reactions: Allergies Allergy/AdvReac Type Severity Reaction Status Date / Time lisinopril Allergy Rash Verified 05/29/17 11:15 paper tape Allergy Rash Uncoded 05/29/17 11:15 Home Medications: Home Meds Pantoprazole [ProTONIX] 40 mg PO DAILY 45 Days tab.cr 11/26/13 [Rx] Carvedilol [Coreg] 3.125 mg PO BID #60 tablet 06/16/15 [Rx] Furosemide [Lasix] 80 mg PO DAILY #30 tablet 06/16/15 [Rx] Diltiazem HCl [Cardizem Cd] 240 mg PO DAILY #0 08/25/15 [Rx] Valsartan 160 mg PO DAILY #0 12/30/15 [Rx] ALPRAZolam [Xanax] 0.5 mg PO BEDTIME 05/10/16 [History] Acetaminophen 1 - 2 tab PO Q4H PRN 11/05/16 [History] Aspirin 81 mg PO DAILY 11/05/16 [History] Allopurinol [Zyloprim] 100 mg PO DAILY 04/21/17 [History] Gabapentin [Neurontin] 100 mg PO TID 05/14/17 [History] buPROPion HCl [Wellbutrin Xl] 300 mg PO DAILY 05/14/17 [History] Insulin Detemir [Levemir Flextouch] 15 units SUBCUT BID 05/29/17 [History] Insulin Lispro [Humalog] 2 - 15 units SUBCUT TIDMEALS 05/29/17 [History] Past Medical History HEENT History: Reports: Sinusitis Cardiovascular History: Reports: CAD, Heart Failure, Hypertension Respiratory History: Reports: Bronchitis, Recurrent Gastrointestinal History: Reports: Other (See Below) Other Gastrointestinal History: perforated sigmoid colon Genitourinary History: Reports: Other (See Below) Other Genitourinary History: hs of surgery on kidney, pt unaware of why Musculoskeletal History: Reports: Osteoarthritis Psychiatric History: Reports: Anxiety, Depression Endocrine/Metabolic History: Reports: Diabetes, Type II Hematologic History: Reports: None - Past Surgical History Cardiovascular Surgical History: Reports: Carotid Stents GI Surgical History: Reports: Appendectomy, Colonoscopy, Colostomy, Hernia, Abdominal, Hernia Repair/Other, Lysis of Adhesions, Polypectomy Neurological Surgical History: Reports: Other (See Below) Musculoskeletal Surgical History: Reports: Hip Replacement, Knee Replacement Oncologic Surgical History: Reports: None Dermatological Surgical History: Reports: None Social & Family History - Family History Family Medical History: Noncontributory Cardiac: Reports: CAD, Heart Failure, Hypertension Neurological: Reports: Cerebral Aneurysms - Tobacco Use Smoking Status *Q: Never Smoker Years of Tobacco use: 40 Packs/Tins Daily: 2 Used Tobacco, but Quit: No Second Hand Smoke Exposure: Yes - Caffeine Use Caffeine Use: Reports: Coffee - Alcohol Use Days Per Week of Alcohol Use: 1 Number of Drinks Per Day: 4 Total Drinks Per Week: 4 - Recreational Drug Use Recreational Drug Use: No - Sexual History Sexual History: Reports: None - Living Situation & Occupation Living situation: Reports: , Single, with Significant Other Occupation: Employed H&P Review of Systems - Review of Systems: Review Of Systems: See Below General: Reports: Malaise, Weakness, Fatigue, Decreased Appetite HEENT: Reports: No Symptoms Pulmonary: Denies: Shortness of Breath, Wheezing, Cough Cardiovascular: Reports: Edema. Denies: Chest Pain, Lightheadedness Gastrointestinal: Reports: Abdominal Pain, Nausea, Other (colostomy). Denies: Vomiting Genitourinary: Reports: No Symptoms Musculoskeletal: Reports: Leg Pain Skin: Reports: Other (midline abdominal incision; bruising on abdomen) Exam - Exam Exam: See Below - Exam General: Alert, Oriented HEENT: Conjunctiva Clear, Mucosa Moist & [place] Neck: Supple Lungs: Clear to Auscultation, Decreased Breath Sounds Cardiovascular: Regular Rate, Regular Rhythm, Other (significant generalized edema) GI/Abdominal Exam: Normal Bowel Sounds, Soft, Tender Skin: Incision (Patient has intact abdominal midline incision with wet to dry dressing packed in to wound. Abdomen is noted to have significant bruising scattered throughout. Small open areas that are oozing blood at times. ) Psychiatric: Alert *Q Meaningful Use (ADM) - VTE *Q VTE Criteria *Q: - Stroke *Q Stroke Criteria *Q: - AMI *Q AMI Criteria *Q: - Problem List (1) Abdominal pain SNOMED Code(s): 97919390 ICD Code: R10.9 - UNSPECIFIED ABDOMINAL PAIN Status: Acute Priority: High Current Visit: Yes Qualifiers: Abdominal location: generalized Qualified Code(s): R10.84 - Generalized abdominal pain (2) Palliative care patient SNOMED Code(s): 042614861 ICD Code: Z51.5 - ENCOUNTER FOR PALLIATIVE CARE Status: Acute Priority: High Current Visit: Yes (3) S/P colectomy SNOMED Code(s): 674756509, 53769309, 039910318 ICD Code: Z90.49 - ACQUIRED ABSENCE OF OTHER SPECIFIED PARTS OF DIGESTIVE TRACT Status: Acute Priority: High Current Visit: Yes (4) Small bowel obstruction due to adhesions SNOMED Code(s): 383737481 ICD Code: K56.50 - INTESTNL ADHESIONS, UNSP TO PARTIAL VERSUS COMPLETE OBST Status: Resolved Current Visit: No (5) Diabetes mellitus type 2 SNOMED Code(s): 17455234 ICD Code: E11.9 - TYPE 2 DIABETES MELLITUS WITHOUT COMPLICATIONS Status: Chronic Priority: High Current Visit: Yes Problem List Initiated/Reviewed/Updated: Yes Orders Last 24hrs: Active Orders 24 hr Category Date Time Status Patient Status [ADT] Routine ADT 05/29/17 14:09 Active Communication Order [RC] ROUTINE Care 05/29/17 14:09 Active Oxygen Therapy [RC] PRN Care 05/29/17 14:09 Active RT Aerosol Therapy [RC] ASDIRECTED Care 05/29/17 14:23 Active Up With Assistance [RC] ASDIRECTED Care 05/29/17 14:09 Active VTE/DVT Education [RC] PER UNIT ROUTINE Care 05/29/17 14:09 Active Vital Signs [RC] Q4H Care 05/29/17 14:09 Active Wound Care [RC] Q12H Care 05/29/17 14:09 Active PT Evaluation and Treatment [CONS] Routine Cons 05/29/17 14:09 Active Consistent Carbohydrate Diet [DIET] Diet 05/29/17 Dinner Active ALPRAZolam [Xanax] Med 05/29/17 20:00 Active 0.5 mg PO BEDTIME Acetaminophen [Tylenol] Med 05/29/17 14:43 Active 325 - 650 mg PO Q4H PRN Albuterol/Ipratropium [DuoNeb 3.0-0.5 MG/3 ML] Med 05/29/17 14:09 Active 3 ml NEB Q4H PRN Allopurinol [Zyloprim] Med 05/30/17 08:00 Active 100 mg PO DAILY Aspirin [Halfprin] Med 05/30/17 08:00 Active 81 mg PO DAILY Budesonide [Pulmicort] Med 05/29/17 20:00 Active 0.5 mg NEB BIDRT Carvedilol [Coreg] Med 05/29/17 20:00 Active 3.125 mg PO BID Diltiazem [Cardizem CD] Med 05/30/17 08:00 Active 240 mg PO DAILY Furosemide [Lasix] Med 05/30/17 08:00 Active 80 mg PO DAILY Gabapentin [Neurontin] Med 05/29/17 20:00 Active 100 mg PO TID Insulin Aspart [NovoLOG] Med 05/29/17 17:30 Active 2 - 12 unit SUBCUT TIDMEALS Insulin Detemir [Levemir] Med 05/29/17 20:00 Active 15 unit SUBCUT BID Lactulose [Cephulac] Med 05/29/17 20:00 Active 20 gm PO BID Losartan [Cozaar] Med 05/30/17 08:00 Active 100 mg PO DAILY Pantoprazole [ProTONIX] Med 05/30/17 07:00 Active 40 mg PO DAILY@0700 Polyethylene Glycol 3350 [MiraLAX] Med 05/30/17 08:00 Active 17 gm PO DAILY buPROPion [Wellbutrin SR] Med 05/30/17 08:00 Active 300 mg PO DAILY Resuscitation Status Routine Resus Stat 05/29/17 14:09 Ordered Medication Orders Acetaminophen (Tylenol) 325 - 650 mg PO Q4H PRN PRN Reason: Pain Albuterol/Ipratropium (Duoneb 3.0-0.5 Mg/3 Ml) 3 ml NEB Q4H PRN PRN Reason: Shortness Of Breath/wheezing Allopurinol (Zyloprim) 100 mg PO DAILY [facility] Alprazolam (Xanax) 0.5 mg PO BEDTIME [facility] Aspirin (Halfprin) 81 mg PO DAILY [facility] Budesonide (Pulmicort) 0.5 mg NEB BIDRT [facility] Bupropion HCl (Wellbutrin Sr) 300 mg PO DAILY [facility] Carvedilol (Coreg) 3.125 mg PO BID [facility] Diltiazem HCl (Cardizem Cd) 240 mg PO DAILY [facility] Furosemide (Lasix) 80 mg PO DAILY [facility] Gabapentin (Neurontin) 100 mg PO TID [facility] Insulin Aspart (Novolog) 2 - 12 unit SUBCUT TIDMEALS [facility] Insulin Detemir (Levemir) 15 unit SUBCUT BID [facility] Lactulose (Cephulac) 20 gm PO BID [facility] Losartan Potassium (Cozaar) 100 mg PO DAILY [facility] Pantoprazole Sodium (Protonix) 40 mg PO DAILY@0700 [facility] Polyethylene Glycol (Miralax) 17 gm PO DAILY [facility] Assessment/Plan Comment:: 72 y/o palliative care patient admitted for strengthening following a bowel resection with resulting abscess and ileus. Will continue with wet to dry dressings to abdomen. Monitor blood sugars. Physical therapy for strengthening. Dr. Oliveira aware of admission and agrees with plan.
[2017-05-29] MEDS ORDERED: Insulin Aspart 100 Units/ML 3 ML Pen SUBCUT SCH (17:30)
[2017-05-29] MEDS: ALPRAZolam 0.25 MG Tab PO SCH (20:09)
[2017-05-29] MEDS: Carvedilol 3.125 MG Tab PO SCH (20:10)
[2017-05-29] MEDS: Gabapentin 100 MG Cap PO SCH (20:11)
[2017-05-29] MEDS: Budesonide 0.5 MG/2 ML Neb Susp NEB SCH (20:13)
[2017-05-29] MEDS: Lactulose Soln 10 GM/15 ML 30 ML UD Cup PO SCH (20:13)
[2017-05-29] MEDS: Insulin Aspart 100 Units/ML 3 ML Pen SUBCUT SCH (21:29)
[2017-05-29] MEDS: Insulin Detemir 100 Units/ML 3 ML Pen SUBCUT SCH (22:01)
[2017-05-30] MEDS: Scopolamine 1.5 MG Transdermal Patch TRDERM SCH (00:12)
[2017-05-30] MEDS: Pantoprazole 40 MG Tab.CR PO SCH (06:54)
[2017-05-30] MEDS: Budesonide 0.5 MG/2 ML Neb Susp NEB SCH ×2 (08:06→20:49)
[2017-05-30] MEDS: Polyethylene Glycol 3350 Powder 17 GM Packet PO SCH (08:06)
[2017-05-30] MEDS: Lactulose Soln 10 GM/15 ML 30 ML UD Cup PO SCH ×2 (08:06→20:44)
[2017-05-30] MEDS: Diltiazem 120 MG Cap.CD PO SCH (08:06)
[2017-05-30] MEDS: Allopurinol 100 MG Tab PO SCH (08:07)
[2017-05-30] MEDS: Furosemide 80 MG Tab PO SCH (08:07)
[2017-05-30] MEDS: Gabapentin 100 MG Cap PO SCH ×3 (08:07→20:49)
[2017-05-30] MEDS: Carvedilol 3.125 MG Tab PO SCH ×2 (08:07→20:49)
[2017-05-30] MEDS: Aspirin 81 MG Tab.EC PO SCH (08:07)
[2017-05-30] MEDS: Losartan 100 MG Tab PO SCH (08:08)
[2017-05-30] MEDS: Insulin Detemir 100 Units/ML 3 ML Pen SUBCUT SCH ×2 (08:08→20:50)
[2017-05-30] MEDS: Insulin Aspart 100 Units/ML 3 ML Pen SUBCUT SCH ×4 (08:10→20:51)
[2017-05-30] MEDS: Simethicone 80 MG Tab.Chew PO PRN ×3 (08:17→21:04)
[2017-05-30] MEDS: Acetaminophen 325 MG Tab PO PRN ×2 (10:37→21:04)
[2017-05-30] MEDS: Enoxaparin 30 MG/0.3 ML Syringe SUBCUT SCH (10:38)
[2017-05-30] MEDS: buPROPion 150 MG Tab.SR PO SCH (15:56)
[2017-05-30] MEDS: ALPRAZolam 0.25 MG Tab PO SCH (20:48)
[2017-05-31] MEDS: Pantoprazole 40 MG Tab.CR PO SCH (06:26)
[2017-05-31] MEDS: Gabapentin 100 MG Cap PO SCH ×3 (07:37→19:56)
[2017-05-31] MEDS: Diltiazem 120 MG Cap.CD PO SCH (07:37)
[2017-05-31] MEDS: Allopurinol 100 MG Tab PO SCH (07:37)
[2017-05-31] MEDS: Furosemide 80 MG Tab PO SCH (07:37)
[2017-05-31] MEDS: Carvedilol 3.125 MG Tab PO SCH ×2 (07:38→19:55)
[2017-05-31] MEDS: Aspirin 81 MG Tab.EC PO SCH (07:38)
[2017-05-31] MEDS: Enoxaparin 30 MG/0.3 ML Syringe SUBCUT SCH (07:38)
[2017-05-31] MEDS: Losartan 100 MG Tab PO SCH (07:38)
[2017-05-31] MEDS: Polyethylene Glycol 3350 Powder 17 GM Packet PO SCH (07:39)
[2017-05-31] MEDS: Lactulose Soln 10 GM/15 ML 30 ML UD Cup PO SCH ×2 (07:39→19:56)
[2017-05-31] MEDS: Insulin Detemir 100 Units/ML 3 ML Pen SUBCUT SCH ×2 (07:41→19:57)
[2017-05-31] MEDS: buPROPion 150 MG Tab.SR PO SCH (07:43)
[2017-05-31] MEDS: Budesonide 0.5 MG/2 ML Neb Susp NEB SCH ×2 (07:46→21:07)
[2017-05-31] MEDS: Insulin Aspart 100 Units/ML 3 ML Pen SUBCUT SCH ×4 (08:09→20:00)
[2017-05-31] MEDS: Simethicone 80 MG Tab.Chew PO PRN ×2 (12:48→18:17)
[2017-05-31] MEDS: ALPRAZolam 0.25 MG Tab PO SCH (19:55)
[2017-06-01] MEDS: Simethicone 80 MG Tab.Chew PO PRN ×3 (03:19→19:44)
[2017-06-01] MEDS: Pantoprazole 40 MG Tab.CR PO SCH (06:09)
[2017-06-01] MEDS: Diltiazem 120 MG Cap.CD PO SCH (07:44)
[2017-06-01] MEDS: Losartan 100 MG Tab PO SCH (07:45)
[2017-06-01] MEDS: Lactulose Soln 10 GM/15 ML 30 ML UD Cup PO SCH ×2 (07:45→19:40)
[2017-06-01] MEDS: Carvedilol 3.125 MG Tab PO SCH ×2 (07:45→19:43)
[2017-06-01] MEDS: Aspirin 81 MG Tab.EC PO SCH (07:46)
[2017-06-01] MEDS: Enoxaparin 30 MG/0.3 ML Syringe SUBCUT SCH (07:46)
[2017-06-01] MEDS: Furosemide 80 MG Tab PO SCH (07:46)
[2017-06-01] MEDS: Polyethylene Glycol 3350 Powder 17 GM Packet PO SCH (07:48)
[2017-06-01] MEDS: Gabapentin 100 MG Cap PO SCH ×3 (07:48→19:41)
[2017-06-01] MEDS: Budesonide 0.5 MG/2 ML Neb Susp NEB SCH ×2 (07:49→19:41)
[2017-06-01] MEDS: buPROPion 150 MG Tab.SR PO SCH (07:49)
[2017-06-01] MEDS: Allopurinol 100 MG Tab PO SCH (07:49)
[2017-06-01] MEDS: Insulin Detemir 100 Units/ML 3 ML Pen SUBCUT SCH ×2 (07:54→20:40)
[2017-06-01] MEDS: Insulin Aspart 100 Units/ML 3 ML Pen SUBCUT SCH ×4 (07:56→20:40)
[2017-06-01] MEDS: Acetaminophen 325 MG Tab PO PRN ×2 (07:59→19:44)
[2017-06-01] MEDS: ALPRAZolam 0.25 MG Tab PO SCH (19:41)
[2017-06-01] MEDS: [UNRECOGNIZED DRUG - REMARK] TRDERM SCH (21:46)
[2017-06-01] MEDS: Scopolamine 1.5 MG Transdermal Patch TRDERM SCH (21:46)
[2017-06-02] MEDS: Pantoprazole 40 MG Tab.CR PO SCH (06:10)
[2017-06-02] MEDS: Diltiazem 120 MG Cap.CD PO SCH (07:44)
[2017-06-02] MEDS: Lactulose Soln 10 GM/15 ML 30 ML UD Cup PO SCH ×2 (07:45→19:42)
[2017-06-02] MEDS: Carvedilol 3.125 MG Tab PO SCH ×2 (07:45→19:42)
[2017-06-02] MEDS: Furosemide 80 MG Tab PO SCH (07:46)
[2017-06-02] MEDS: Aspirin 81 MG Tab.EC PO SCH (07:46)
[2017-06-02] MEDS: Losartan 100 MG Tab PO SCH (07:46)
[2017-06-02] MEDS: Polyethylene Glycol 3350 Powder 17 GM Packet PO SCH (07:47)
[2017-06-02] MEDS: Enoxaparin 30 MG/0.3 ML Syringe SUBCUT SCH (07:47)
[2017-06-02] MEDS: Budesonide 0.5 MG/2 ML Neb Susp NEB SCH ×2 (07:48→19:45)
[2017-06-02] MEDS: Gabapentin 100 MG Cap PO SCH ×3 (07:48→19:42)
[2017-06-02] MEDS: Allopurinol 100 MG Tab PO SCH (07:48)
[2017-06-02] MEDS: buPROPion 150 MG Tab.SR PO SCH (07:48)
[2017-06-02] MEDS: Insulin Aspart 100 Units/ML 3 ML Pen SUBCUT SCH ×4 (08:07→20:05)
[2017-06-02] MEDS: Insulin Detemir 100 Units/ML 3 ML Pen SUBCUT SCH ×2 (08:08→20:04)
[2017-06-02] MEDS: Acetaminophen 325 MG Tab PO PRN ×2 (10:58→19:40)
[2017-06-02] MEDS: ALPRAZolam 0.25 MG Tab PO SCH (19:41)
[2017-06-02] MEDS: Simethicone 80 MG Tab.Chew PO PRN (19:45)
[2017-06-03] MEDS: Budesonide 0.5 MG/2 ML Neb Susp NEB SCH ×2 (07:35→19:38)
[2017-06-03] MEDS: Pantoprazole 40 MG Tab.CR PO SCH (07:35)
[2017-06-03] MEDS: Enoxaparin 30 MG/0.3 ML Syringe SUBCUT SCH (07:35)
[2017-06-03] MEDS: Diltiazem 120 MG Cap.CD PO SCH (07:36)
[2017-06-03] MEDS: Gabapentin 100 MG Cap PO SCH ×3 (07:37→19:38)
[2017-06-03] MEDS: Polyethylene Glycol 3350 Powder 17 GM Packet PO SCH (07:37)
[2017-06-03] MEDS: buPROPion 150 MG Tab.SR PO SCH (07:37)
[2017-06-03] MEDS: Carvedilol 3.125 MG Tab PO SCH ×2 (07:37→20:12)
[2017-06-03] MEDS: Losartan 100 MG Tab PO SCH (07:38)
[2017-06-03] MEDS: Aspirin 81 MG Tab.EC PO SCH (07:38)
[2017-06-03] MEDS: Allopurinol 100 MG Tab PO SCH (07:38)
[2017-06-03] MEDS: Furosemide 80 MG Tab PO SCH (07:38)
[2017-06-03] MEDS: Lactulose Soln 10 GM/15 ML 30 ML UD Cup PO SCH (07:38)
[2017-06-03] MEDS: Insulin Aspart 100 Units/ML 3 ML Pen SUBCUT SCH ×4 (07:39→20:13)
[2017-06-03] MEDS: Insulin Detemir 100 Units/ML 3 ML Pen SUBCUT SCH ×2 (07:40→20:13)
[2017-06-03] MEDS ORDERED: Lactulose Soln 10 GM/15 ML 30 ML UD Cup PO PRN (09:21)
[2017-06-03] MEDS: Acetaminophen 325 MG Tab PO PRN (15:53)
[2017-06-03] MEDS: ALPRAZolam 0.25 MG Tab PO SCH (19:38)
[2017-06-03] MEDS: Simethicone 80 MG Tab.Chew PO PRN (20:17)
[2017-06-04] MEDS: Pantoprazole 40 MG Tab.CR PO SCH (06:32)
[2017-06-04] MEDS: Polyethylene Glycol 3350 Powder 17 GM Packet PO SCH (07:34)
[2017-06-04] MEDS: Enoxaparin 30 MG/0.3 ML Syringe SUBCUT SCH (07:35)
[2017-06-04] MEDS: Diltiazem 120 MG Cap.CD PO SCH (07:36)
[2017-06-04] MEDS: Losartan 100 MG Tab PO SCH (07:37)
[2017-06-04] MEDS: Carvedilol 3.125 MG Tab PO SCH ×2 (07:37→19:24)
[2017-06-04] MEDS: Gabapentin 100 MG Cap PO SCH ×3 (07:38→19:28)
[2017-06-04] MEDS: Aspirin 81 MG Tab.EC PO SCH (07:38)
[2017-06-04] MEDS: Furosemide 80 MG Tab PO SCH (07:38)
[2017-06-04] MEDS: Allopurinol 100 MG Tab PO SCH (07:39)
[2017-06-04] MEDS: Budesonide 0.5 MG/2 ML Neb Susp NEB SCH ×2 (07:39→19:28)
[2017-06-04] MEDS: buPROPion 150 MG Tab.SR PO SCH (07:39)
[2017-06-04] MEDS: Insulin Aspart 100 Units/ML 3 ML Pen SUBCUT SCH ×4 (08:07→21:02)
[2017-06-04] MEDS: Insulin Detemir 100 Units/ML 3 ML Pen SUBCUT SCH ×2 (08:08→21:01)
[2017-06-04] MEDS: Acetaminophen 325 MG Tab PO PRN (10:55)
[2017-06-04] MEDS: Simethicone 80 MG Tab.Chew PO PRN (11:23)
[2017-06-04] MEDS: ALPRAZolam 0.25 MG Tab PO SCH (19:28)
[2017-06-04] MEDS: [UNRECOGNIZED DRUG - REMARK] TRDERM SCH (21:23)
[2017-06-04] MEDS: Scopolamine 1.5 MG Transdermal Patch TRDERM SCH (21:23)
[2017-06-05] MEDS: Pantoprazole 40 MG Tab.CR PO SCH (06:20)
[2017-06-05] MEDS: Insulin Aspart 100 Units/ML 3 ML Pen SUBCUT SCH ×4 (08:00→20:37)
[2017-06-05] MEDS: Insulin Detemir 100 Units/ML 3 ML Pen SUBCUT SCH ×2 (08:02→20:36)
[2017-06-05] MEDS: Aspirin 81 MG Tab.EC PO SCH (09:44)
[2017-06-05] MEDS: Diltiazem 120 MG Cap.CD PO SCH (09:44)
[2017-06-05] MEDS: Carvedilol 3.125 MG Tab PO SCH ×2 (09:45→20:36)
[2017-06-05] MEDS: buPROPion 150 MG Tab.SR PO SCH (09:45)
[2017-06-05] MEDS: Furosemide 80 MG Tab PO SCH (09:46)
[2017-06-05] MEDS: Allopurinol 100 MG Tab PO SCH (09:46)
[2017-06-05] MEDS: Gabapentin 100 MG Cap PO SCH ×3 (09:46→20:35)
[2017-06-05] MEDS: Losartan 100 MG Tab PO SCH (09:46)
[2017-06-05] MEDS: Polyethylene Glycol 3350 Powder 17 GM Packet PO SCH (09:47)
[2017-06-05] MEDS: Enoxaparin 30 MG/0.3 ML Syringe SUBCUT SCH (09:48)
[2017-06-05] MEDS: Budesonide 0.5 MG/2 ML Neb Susp NEB SCH ×2 (09:48→20:36)
[2017-06-05] MEDS: ALPRAZolam 0.25 MG Tab PO SCH (20:36)
[2017-06-06] MEDS: Pantoprazole 40 MG Tab.CR PO SCH (06:18)
[2017-06-06] MEDS: Carvedilol 3.125 MG Tab PO SCH ×2 (08:35→19:50)
[2017-06-06] MEDS: Polyethylene Glycol 3350 Powder 17 GM Packet PO SCH (08:35)
[2017-06-06] MEDS: Gabapentin 100 MG Cap PO SCH ×3 (08:36→19:50)
[2017-06-06] MEDS: Allopurinol 100 MG Tab PO SCH (08:36)
[2017-06-06] MEDS: buPROPion 150 MG Tab.SR PO SCH (08:36)
[2017-06-06] MEDS: Diltiazem 120 MG Cap.CD PO SCH (08:36)
[2017-06-06] MEDS: Furosemide 80 MG Tab PO SCH (08:36)
[2017-06-06] MEDS: Losartan 100 MG Tab PO SCH (08:37)
[2017-06-06] MEDS: Enoxaparin 30 MG/0.3 ML Syringe SUBCUT SCH (08:37)
[2017-06-06] MEDS: Aspirin 81 MG Tab.EC PO SCH (08:37)
[2017-06-06] MEDS: Insulin Detemir 100 Units/ML 3 ML Pen SUBCUT SCH ×2 (08:39→19:55)
[2017-06-06] MEDS: Insulin Aspart 100 Units/ML 3 ML Pen SUBCUT SCH ×4 (08:41→21:29)
[2017-06-06] MEDS: Budesonide 0.5 MG/2 ML Neb Susp NEB SCH ×2 (12:28→19:50)
[2017-06-06] MEDS: ALPRAZolam 0.25 MG Tab PO SCH (19:50)
[2017-06-06] MEDS: Acetaminophen 325 MG Tab PO PRN (19:53)
[2017-06-07] MEDS: Pantoprazole 40 MG Tab.CR PO SCH (06:28)
[2017-06-07] MEDS: Carvedilol 3.125 MG Tab PO SCH ×2 (07:33→20:09)
[2017-06-07] MEDS: buPROPion 150 MG Tab.SR PO SCH (07:33)
[2017-06-07] MEDS: Aspirin 81 MG Tab.EC PO SCH (07:33)
[2017-06-07] MEDS: Furosemide 80 MG Tab PO SCH (07:33)
[2017-06-07] MEDS: Losartan 100 MG Tab PO SCH (07:33)
[2017-06-07] MEDS: Gabapentin 100 MG Cap PO SCH ×3 (07:33→20:09)
[2017-06-07] MEDS: Allopurinol 100 MG Tab PO SCH (07:34)
[2017-06-07] MEDS: Enoxaparin 30 MG/0.3 ML Syringe SUBCUT SCH (07:34)
[2017-06-07] MEDS: Diltiazem 120 MG Cap.CD PO SCH (07:34)
[2017-06-07] MEDS: Polyethylene Glycol 3350 Powder 17 GM Packet PO SCH (07:34)
[2017-06-07] MEDS: Budesonide 0.5 MG/2 ML Neb Susp NEB SCH ×2 (07:34→20:09)
[2017-06-07] MEDS: Insulin Aspart 100 Units/ML 3 ML Pen SUBCUT SCH ×5 (07:35→20:23)
[2017-06-07] MEDS: Insulin Detemir 100 Units/ML 3 ML Pen SUBCUT SCH ×2 (07:43→20:11)
[2017-06-07] MEDS: ALPRAZolam 0.25 MG Tab PO SCH (20:09)
[2017-06-07] MEDS: Scopolamine 1.5 MG Transdermal Patch TRDERM SCH (22:07)
[2017-06-07] MEDS: [UNRECOGNIZED DRUG - REMARK] TRDERM SCH (22:07)
[2017-06-08] MEDS: Polyethylene Glycol 3350 Powder 17 GM Packet PO SCH (07:50)
[2017-06-08] MEDS: Losartan 100 MG Tab PO SCH (07:51)
[2017-06-08] MEDS: Enoxaparin 30 MG/0.3 ML Syringe SUBCUT SCH (07:51)
[2017-06-08] MEDS: Budesonide 0.5 MG/2 ML Neb Susp NEB SCH ×2 (07:51→19:19)
[2017-06-08] MEDS: Carvedilol 3.125 MG Tab PO SCH ×2 (07:51→19:21)
[2017-06-08] MEDS: Pantoprazole 40 MG Tab.CR PO SCH (07:52)
[2017-06-08] MEDS: Diltiazem 120 MG Cap.CD PO SCH (07:52)
[2017-06-08] MEDS: Gabapentin 100 MG Cap PO SCH ×3 (07:52→19:19)
[2017-06-08] MEDS: Furosemide 80 MG Tab PO SCH (07:52)
[2017-06-08] MEDS: buPROPion 150 MG Tab.SR PO SCH (07:52)
[2017-06-08] MEDS: Aspirin 81 MG Tab.EC PO SCH (07:52)
[2017-06-08] MEDS: Insulin Detemir 100 Units/ML 3 ML Pen SUBCUT SCH ×2 (07:53→20:25)
[2017-06-08] MEDS: Allopurinol 100 MG Tab PO SCH (07:54)
[2017-06-08] MEDS: Insulin Aspart 100 Units/ML 3 ML Pen SUBCUT SCH ×4 (08:06→20:23)
[2017-06-08] MEDS: Acetaminophen 325 MG Tab PO PRN (09:57)
[2017-06-08] MEDS: Simethicone 80 MG Tab.Chew PO PRN ×2 (10:00→19:26)
[2017-06-08] MEDS: ALPRAZolam 0.25 MG Tab PO SCH (19:19)
[2017-06-09] MEDS: Pantoprazole 40 MG Tab.CR PO SCH (06:46)
[2017-06-09] MEDS: Acetaminophen 325 MG Tab PO PRN (07:44)
[2017-06-09] MEDS: Polyethylene Glycol 3350 Powder 17 GM Packet PO SCH (07:45)
[2017-06-09] MEDS: Budesonide 0.5 MG/2 ML Neb Susp NEB SCH ×2 (07:47→19:49)
[2017-06-09] MEDS: Diltiazem 120 MG Cap.CD PO SCH (07:48)
[2017-06-09] MEDS: Enoxaparin 30 MG/0.3 ML Syringe SUBCUT SCH (07:48)
[2017-06-09] MEDS: Furosemide 80 MG Tab PO SCH (07:49)
[2017-06-09] MEDS: Carvedilol 3.125 MG Tab PO SCH ×2 (07:50→19:49)
[2017-06-09] MEDS: Aspirin 81 MG Tab.EC PO SCH (07:50)
[2017-06-09] MEDS: Allopurinol 100 MG Tab PO SCH (07:50)
[2017-06-09] MEDS: Gabapentin 100 MG Cap PO SCH ×3 (07:50→19:54)
[2017-06-09] MEDS: Losartan 100 MG Tab PO SCH (07:50)
[2017-06-09] MEDS: buPROPion 150 MG Tab.SR PO SCH (07:50)
[2017-06-09] MEDS: Insulin Aspart 100 Units/ML 3 ML Pen SUBCUT SCH ×4 (08:00→20:47)
[2017-06-09] MEDS: Insulin Detemir 100 Units/ML 3 ML Pen SUBCUT SCH ×2 (08:01→19:59)
[2017-06-09] MEDS: Simethicone 80 MG Tab.Chew PO PRN ×2 (08:01→18:03)
[2017-06-09] MEDS: Ondansetron 4 MG Tab.DIS PO PRN (18:03)
[2017-06-09] MEDS: ALPRAZolam 0.25 MG Tab PO SCH (19:49)
[2017-06-10] MEDS: Polyethylene Glycol 3350 Powder 17 GM Packet PO SCH (07:56)
[2017-06-10] MEDS: Budesonide 0.5 MG/2 ML Neb Susp NEB SCH ×2 (07:56→19:58)
[2017-06-10] MEDS: Losartan 100 MG Tab PO SCH (07:57)
[2017-06-10] MEDS: Furosemide 80 MG Tab PO SCH (07:57)
[2017-06-10] MEDS: Allopurinol 100 MG Tab PO SCH (07:57)
[2017-06-10] MEDS: Enoxaparin 30 MG/0.3 ML Syringe SUBCUT SCH (07:57)
[2017-06-10] MEDS: Gabapentin 100 MG Cap PO SCH ×3 (07:58→19:58)
[2017-06-10] MEDS: Diltiazem 120 MG Cap.CD PO SCH (07:58)
[2017-06-10] MEDS: Carvedilol 3.125 MG Tab PO SCH ×2 (07:58→19:58)
[2017-06-10] MEDS: Pantoprazole 40 MG Tab.CR PO SCH (07:59)
[2017-06-10] MEDS: Aspirin 81 MG Tab.EC PO SCH (07:59)
[2017-06-10] MEDS: buPROPion 150 MG Tab.SR PO SCH (07:59)
[2017-06-10] MEDS: Simethicone 80 MG Tab.Chew PO SCH ×3 (07:59→17:34)
[2017-06-10] MEDS: Insulin Aspart 100 Units/ML 3 ML Pen SUBCUT SCH ×4 (08:00→20:02)
[2017-06-10] MEDS: Insulin Detemir 100 Units/ML 3 ML Pen SUBCUT SCH ×2 (08:01→20:00)
[2017-06-10] MEDS: ALPRAZolam 0.25 MG Tab PO SCH (19:58)
[2017-06-10] MEDS: Scopolamine 1.5 MG Transdermal Patch TRDERM SCH (21:24)
[2017-06-10] MEDS: [UNRECOGNIZED DRUG - REMARK] TRDERM SCH (21:25)
[2017-06-11] MEDS: Pantoprazole 40 MG Tab.CR PO SCH (06:00)
[2017-06-11] MEDS: Budesonide 0.5 MG/2 ML Neb Susp NEB SCH ×2 (08:02→20:09)
[2017-06-11] MEDS: buPROPion 150 MG Tab.SR PO SCH (08:03)
[2017-06-11] MEDS: Losartan 100 MG Tab PO SCH (08:03)
[2017-06-11] MEDS: Diltiazem 120 MG Cap.CD PO SCH (08:03)
[2017-06-11] MEDS: Carvedilol 3.125 MG Tab PO SCH ×2 (08:03→20:09)
[2017-06-11] MEDS: Furosemide 80 MG Tab PO SCH (08:04)
[2017-06-11] MEDS: Aspirin 81 MG Tab.EC PO SCH (08:04)
[2017-06-11] MEDS: Simethicone 80 MG Tab.Chew PO SCH ×3 (08:04→17:25)
[2017-06-11] MEDS: Gabapentin 100 MG Cap PO SCH ×3 (08:04→20:09)
[2017-06-11] MEDS: Allopurinol 100 MG Tab PO SCH (08:04)
[2017-06-11] MEDS: Insulin Detemir 100 Units/ML 3 ML Pen SUBCUT SCH ×2 (08:05→20:11)
[2017-06-11] MEDS: Enoxaparin 30 MG/0.3 ML Syringe SUBCUT SCH (08:06)
[2017-06-11] MEDS: Polyethylene Glycol 3350 Powder 17 GM Packet PO SCH (08:07)
[2017-06-11] MEDS: Insulin Aspart 100 Units/ML 3 ML Pen SUBCUT SCH ×4 (08:09→20:12)
[2017-06-11] MEDS: ALPRAZolam 0.25 MG Tab PO SCH (20:09)
[2017-06-12] MEDS: Pantoprazole 40 MG Tab.CR PO SCH (06:09)
[2017-06-12] MEDS: Diltiazem 120 MG Cap.CD PO SCH (07:38)
[2017-06-12] MEDS: Gabapentin 100 MG Cap PO SCH ×3 (07:39→19:32)
[2017-06-12] MEDS: Allopurinol 100 MG Tab PO SCH (07:39)
[2017-06-12] MEDS: buPROPion 150 MG Tab.SR PO SCH (07:39)
[2017-06-12] MEDS: Losartan 100 MG Tab PO SCH (07:40)
[2017-06-12] MEDS: Carvedilol 3.125 MG Tab PO SCH ×2 (07:40→19:32)
[2017-06-12] MEDS: Furosemide 80 MG Tab PO SCH (07:40)
[2017-06-12] MEDS: Aspirin 81 MG Tab.EC PO SCH (07:40)
[2017-06-12] MEDS: Enoxaparin 30 MG/0.3 ML Syringe SUBCUT SCH (07:42)
[2017-06-12] MEDS: Budesonide 0.5 MG/2 ML Neb Susp NEB SCH ×2 (07:42→19:33)
[2017-06-12] MEDS: Simethicone 80 MG Tab.Chew PO SCH ×3 (07:42→17:44)
[2017-06-12] MEDS: Polyethylene Glycol 3350 Powder 17 GM Packet PO SCH (07:42)
[2017-06-12] MEDS: Insulin Detemir 100 Units/ML 3 ML Pen SUBCUT SCH ×2 (07:43→19:34)
[2017-06-12] MEDS: Insulin Aspart 100 Units/ML 3 ML Pen SUBCUT SCH ×4 (07:45→20:37)
--- NOTE | 2017-06-12 10:37 | PCM.PN ---
- General Info Date of Service: 06/12/17 Admission Dx/Problem (Free Text): Admission Diagnosis/Problem Admission Diagnosis/Problem Ileus Functional Status: Reports: Pain Controlled, Tolerating Diet, Ambulating - Review of Systems General: Reports: Weakness, Fatigue, Malaise HEENT: Reports: No Symptoms Pulmonary: Reports: Cough. Denies: Shortness of Breath Cardiovascular: Reports: Edema. Denies: Chest Pain, Lightheadedness Gastrointestinal: Reports: Other (intact colostomy). Denies: Abdominal Pain, Decreased Appetite, Nausea, Vomiting Genitourinary: Reports: No Symptoms Musculoskeletal: Reports: No Symptoms Skin: Reports: Other (open abdominal wound) Psychiatric: Reports: Depression - Patient Data Vitals - Most Recent: Last Vital Signs Temp 97.7 F 06/12/17 08:00 Pulse 79 06/12/17 08:00 Resp 18 06/12/17 08:00 BP 152/55 H 06/12/17 08:00 Pulse Ox 97 06/12/17 08:00 Weight - Most Recent: 267 lb 10.259 oz Lab Results Last 24 Hours: Laboratory Results - last 24 hr 06/11/17 06/11/17 06/11/17 Range/Units 11:26 17:25 20:11 POC Glucose 205 H 159 H 187 H (75-105) mg/dl 06/12/17 Range/Units 07:19 POC Glucose 120 H (75-105) mg/dl Med Orders - Current: Current Medications Acetaminophen (Tylenol) 325 - 650 mg PO Q4H PRN PRN Reason: Pain Last Admin: 06/09/17 07:44 Dose: 650 mg Albuterol/Ipratropium (Duoneb 3.0-0.5 Mg/3 Ml) 3 ml NEB Q4H PRN PRN Reason: Shortness Of Breath/wheezing Allopurinol (Zyloprim) 100 mg PO DAILY [facility] Last Admin: 06/12/17 07:39 Dose: 100 mg Alprazolam (Xanax) 0.5 mg PO BEDTIME [facility] Last Admin: 06/11/17 20:09 Dose: 0.5 mg Aspirin (Halfprin) 81 mg PO DAILY [facility] Last Admin: 06/12/17 07:40 Dose: 81 mg Budesonide (Pulmicort) 0.5 mg NEB BIDRT [facility] Last Admin: 06/12/17 07:42 Dose: 0.5 mg Bupropion HCl (Wellbutrin Sr) 300 mg PO DAILY [facility] Last Admin: 06/12/17 07:39 Dose: 300 mg Carvedilol (Coreg) 3.125 mg PO BID [facility] Last Admin: 06/12/17 07:40 Dose: 3.125 mg Diltiazem HCl (Cardizem Cd) 240 mg PO DAILY [facility] Last Admin: 06/12/17 07:38 Dose: 240 mg Enoxaparin Sodium (Lovenox) 30 mg SUBCUT DAILY@0800 [facility] Last Admin: 06/12/17 07:42 Dose: 30 mg Furosemide (Lasix) 80 mg PO DAILY [facility] Last Admin: 06/12/17 07:40 Dose: 80 mg Gabapentin (Neurontin) 100 mg PO TID [facility] Last Admin: 06/12/17 07:39 Dose: 100 mg Insulin Aspart (Novolog) 0 unit SUBCUT WITHMEALSANDBED [facility] PRN Reason: Protocol Last Admin: 06/12/17 07:45 Dose: Not Given Insulin Detemir (Levemir) 15 unit SUBCUT BID [facility] Last Admin: 06/12/17 07:43 Dose: 15 units Lactulose (Cephulac) 20 gm PO BID PRN PRN Reason: Constipation Losartan Potassium (Cozaar) 100 mg PO DAILY [facility] Last Admin: 06/12/17 07:40 Dose: 100 mg Miscellaneous Information (Remove Patch) 1 ea TRDERM Q72H [facility] Last Admin: 06/10/17 21:25 Dose: 1 ea Ondansetron HCl (Zofran Odt) 4 mg PO Q6H PRN PRN Reason: Nausea/Vomiting Last Admin: 06/09/17 18:03 Dose: 4 mg Pantoprazole Sodium (Protonix) 40 mg PO DAILY@0700 [facility] Last Admin: 06/12/17 06:09 Dose: 40 mg Polyethylene Glycol (Miralax) 17 gm PO DAILY [facility] Last Admin: 06/12/17 07:42 Dose: 17 gm Scopolamine (Transderm-Scop) 1.5 mg TRDERM Q72H [facility] Last Admin: 06/10/17 21:24 Dose: 1.5 mg Sertraline HCl (Zoloft) 50 mg PO BEDTIME [facility] Simethicone (Simethicone) 80 mg PO TIDMEALS [facility] Last Admin: 06/12/17 07:42 Dose: 80 mg Discontinued Medications Insulin Aspart (Novolog) 2 - 12 unit SUBCUT TIDMEALS [facility] Last Admin: 05/30/17 07:35 Dose: Not Given Lactulose (Cephulac) 20 gm PO BID [facility] Last Admin: 06/03/17 07:38 Dose: Not Given Simethicone (Simethicone) 80 mg PO Q4H PRN PRN Reason: Gas Last Admin: 06/09/17 18:03 Dose: 80 mg - Exam General: Alert, Oriented HEENT: Mucous Membr. Moist/[place] Neck: Supple Lungs: Clear to Auscultation, Decreased Breath Sounds Cardiovascular: Regular Rate, Regular Rhythm GI/Abdominal Exam: Normal Bowel Sounds, Soft. No: Tender Extremities: Normal Inspection, Pedal Edema (2+ pitting) Skin: Warm Wound/Incisions: Erythema Improving (Patient has open midline incision with serosanguinous drainage, improving. Colostomy intact with soft brown stool. ) Psy/Mental Status: Alert, Depressed - Problem List & Annotations (1) Abdominal pain SNOMED Code(s): 60616972 Code(s): R10.9 - UNSPECIFIED ABDOMINAL PAIN Status: Acute Priority: High Current Visit: Yes Qualifiers: Abdominal location: generalized Qualified Code(s): R10.84 - Generalized abdominal pain (2) Palliative care patient SNOMED Code(s): 813841298 Code(s): Z51.5 - ENCOUNTER FOR PALLIATIVE CARE Status: Acute Priority: High Current Visit: Yes (3) S/P colectomy SNOMED Code(s): 750662565, 32938572, 509790086 Code(s): Z90.49 - ACQUIRED ABSENCE OF OTHER SPECIFIED PARTS OF DIGESTIVE TRACT Status: Acute Priority: High Current Visit: Yes (4) Diabetes mellitus type 2 SNOMED Code(s): 17212688 Code(s): E11.9 - TYPE 2 DIABETES MELLITUS WITHOUT COMPLICATIONS Status: Chronic Priority: High Current Visit: Yes (5) History of - depression SNOMED Code(s): 300719977 Code(s): Z86.59 - PERSONAL HISTORY OF OTHER MENTAL AND BEHAVIORAL DISORDERS Status: Chronic Priority: High Current Visit: Yes - Problem List Review Problem List Initiated/Reviewed/Updated: Yes - My Orders Last 24 Hours: My Active Orders 06/12/17 20:00 Sertraline [Zoloft] 50 mg PO BEDTIME - Plan Plan:: 72 y/o palliative care patient admitted for strengthening following a bowel resection with resulting abscess and ileus. Will continue with wet to dry dressings to abdomen. Monitor blood sugars. Physical therapy for strengthening. Dr. Oliveira aware of admission and agrees with plan. 06-12-2017 Patient seen today for a 14 day recert for swing bed. Admitted for strengthening following colectomy with ostomy placement. Patient has had slow improvement with PT. Ambulates only short distances. Denies any abdominal pain. Not currently taking any pain medications. She has a good appetite. Generalized edema has improved, now 2+ edema noted in her lower legs, down in weight again from admit. Denies any shortness of breath, no wheezing. Does have occasional cough but good air exchange noted. She has been more fatigued, more tearful, feels more depressed. Has not yet been involved in any of her colostomy cares, states daughter will be helping with this as she will be moving in with them for further care. Incision is slowly improving, continue with wet to dry dressing changes. Colostomy intact with brown, soft stool. Nontender with palpation. Discussed current status and plan. Does need to continue to show progress with PT and learn colostomy cares. Zoloft added to her regimen.
[2017-06-12] MEDS: Sertraline 100 MG Tab PO SCH (19:32)
[2017-06-12] MEDS: ALPRAZolam 0.25 MG Tab PO SCH (19:33)
[2017-06-13] MEDS: Insulin Detemir 100 Units/ML 3 ML Pen SUBCUT SCH ×2 (07:47→20:22)
[2017-06-13] MEDS: Budesonide 0.5 MG/2 ML Neb Susp NEB SCH ×2 (07:47→19:27)
[2017-06-13] MEDS: Pantoprazole 40 MG Tab.CR PO SCH (07:47)
[2017-06-13] MEDS: Enoxaparin 30 MG/0.3 ML Syringe SUBCUT SCH (07:47)
[2017-06-13] MEDS: Polyethylene Glycol 3350 Powder 17 GM Packet PO SCH (07:48)
[2017-06-13] MEDS: Diltiazem 120 MG Cap.CD PO SCH (07:49)
[2017-06-13] MEDS: Simethicone 80 MG Tab.Chew PO SCH ×3 (07:49→17:25)
[2017-06-13] MEDS: Losartan 100 MG Tab PO SCH (07:50)
[2017-06-13] MEDS: Aspirin 81 MG Tab.EC PO SCH (07:51)
[2017-06-13] MEDS: Gabapentin 100 MG Cap PO SCH ×3 (07:51→19:27)
[2017-06-13] MEDS: buPROPion 150 MG Tab.SR PO SCH (07:51)
[2017-06-13] MEDS: Allopurinol 100 MG Tab PO SCH (07:51)
[2017-06-13] MEDS: Furosemide 80 MG Tab PO SCH (07:52)
[2017-06-13] MEDS: Carvedilol 3.125 MG Tab PO SCH ×2 (07:52→19:30)
[2017-06-13] MEDS: Insulin Aspart 100 Units/ML 3 ML Pen SUBCUT SCH ×4 (07:52→20:24)
[2017-06-13] MEDS: Ondansetron 4 MG Tab.DIS PO PRN (15:39)
[2017-06-13] MEDS: ALPRAZolam 0.25 MG Tab PO SCH (19:27)
[2017-06-13] MEDS: Sertraline 100 MG Tab PO SCH (19:28)
[2017-06-13] MEDS: Scopolamine 1.5 MG Transdermal Patch TRDERM SCH (21:35)
[2017-06-13] MEDS: [UNRECOGNIZED DRUG - REMARK] TRDERM SCH (21:36)
[2017-06-14] MEDS: Pantoprazole 40 MG Tab.CR PO SCH (06:05)
[2017-06-14] MEDS: Polyethylene Glycol 3350 Powder 17 GM Packet PO SCH (07:39)
[2017-06-14] MEDS: Enoxaparin 30 MG/0.3 ML Syringe SUBCUT SCH (07:40)
[2017-06-14] MEDS: Simethicone 80 MG Tab.Chew PO SCH ×3 (07:40→17:17)
[2017-06-14] MEDS: Diltiazem 120 MG Cap.CD PO SCH (07:40)
[2017-06-14] MEDS: buPROPion 150 MG Tab.SR PO SCH (07:40)
[2017-06-14] MEDS: Budesonide 0.5 MG/2 ML Neb Susp NEB SCH ×2 (07:40→20:22)
[2017-06-14] MEDS: Carvedilol 3.125 MG Tab PO SCH ×2 (07:41→20:21)
[2017-06-14] MEDS: Gabapentin 100 MG Cap PO SCH ×3 (07:41→20:21)
[2017-06-14] MEDS: Furosemide 80 MG Tab PO SCH (07:42)
[2017-06-14] MEDS: Losartan 100 MG Tab PO SCH (07:42)
[2017-06-14] MEDS: Allopurinol 100 MG Tab PO SCH (07:42)
[2017-06-14] MEDS: Aspirin 81 MG Tab.EC PO SCH (07:42)
[2017-06-14] MEDS: Insulin Aspart 100 Units/ML 3 ML Pen SUBCUT SCH ×4 (07:43→20:22)
[2017-06-14] MEDS: Insulin Detemir 100 Units/ML 3 ML Pen SUBCUT SCH ×2 (07:44→20:23)
[2017-06-14] MEDS: Ondansetron 4 MG Tab.DIS PO PRN (10:50)
[2017-06-14] MEDS: ALPRAZolam 0.25 MG Tab PO SCH (20:21)
[2017-06-14] MEDS: Sertraline 100 MG Tab PO SCH (20:21)
[2017-06-15] MEDS: Pantoprazole 40 MG Tab.CR PO SCH (07:00)
[2017-06-15] MEDS: Enoxaparin 30 MG/0.3 ML Syringe SUBCUT SCH (07:59)
[2017-06-15] MEDS: Gabapentin 100 MG Cap PO SCH ×3 (07:59→20:29)
[2017-06-15] MEDS: Losartan 100 MG Tab PO SCH (08:00)
[2017-06-15] MEDS: Polyethylene Glycol 3350 Powder 17 GM Packet PO SCH (08:00)
[2017-06-15] MEDS: Allopurinol 100 MG Tab PO SCH (08:00)
[2017-06-15] MEDS: Carvedilol 3.125 MG Tab PO SCH ×2 (08:00→20:29)
[2017-06-15] MEDS: Simethicone 80 MG Tab.Chew PO SCH ×3 (08:00→17:35)
[2017-06-15] MEDS: Furosemide 80 MG Tab PO SCH (08:00)
[2017-06-15] MEDS: Aspirin 81 MG Tab.EC PO SCH (08:00)
[2017-06-15] MEDS: buPROPion 150 MG Tab.SR PO SCH (08:01)
[2017-06-15] MEDS: Diltiazem 120 MG Cap.CD PO SCH (08:01)
[2017-06-15] MEDS: Insulin Aspart 100 Units/ML 3 ML Pen SUBCUT SCH ×4 (08:03→20:31)
[2017-06-15] MEDS: Insulin Detemir 100 Units/ML 3 ML Pen SUBCUT SCH ×2 (08:04→20:30)
[2017-06-15] MEDS: Budesonide 0.5 MG/2 ML Neb Susp NEB SCH ×2 (10:07→20:29)
[2017-06-15] MEDS: Sertraline 100 MG Tab PO SCH (20:29)
[2017-06-15] MEDS: ALPRAZolam 0.25 MG Tab PO SCH (20:29)
[2017-06-16] MEDS: Pantoprazole 40 MG Tab.CR PO SCH (06:45)
[2017-06-16] MEDS: Enoxaparin 30 MG/0.3 ML Syringe SUBCUT SCH (08:09)
[2017-06-16] MEDS: Budesonide 0.5 MG/2 ML Neb Susp NEB SCH ×2 (08:09→19:44)
[2017-06-16] MEDS: Carvedilol 3.125 MG Tab PO SCH ×2 (08:10→19:45)
[2017-06-16] MEDS: Aspirin 81 MG Tab.EC PO SCH (08:10)
[2017-06-16] MEDS: Gabapentin 100 MG Cap PO SCH ×3 (08:10→19:44)
[2017-06-16] MEDS: Diltiazem 120 MG Cap.CD PO SCH (08:10)
[2017-06-16] MEDS: Simethicone 80 MG Tab.Chew PO SCH ×3 (08:10→17:56)
[2017-06-16] MEDS: Losartan 100 MG Tab PO SCH (08:11)
[2017-06-16] MEDS: Furosemide 80 MG Tab PO SCH (08:11)
[2017-06-16] MEDS: Allopurinol 100 MG Tab PO SCH (08:11)
[2017-06-16] MEDS: buPROPion 150 MG Tab.SR PO SCH (08:11)
[2017-06-16] MEDS: Polyethylene Glycol 3350 Powder 17 GM Packet PO SCH (08:11)
[2017-06-16] MEDS: Insulin Detemir 100 Units/ML 3 ML Pen SUBCUT SCH ×2 (08:18→19:46)
[2017-06-16] MEDS: Insulin Aspart 100 Units/ML 3 ML Pen SUBCUT SCH ×4 (08:20→21:41)
[2017-06-16] MEDS: Ondansetron 4 MG Tab.DIS PO PRN (13:33)
[2017-06-16] MEDS: Sertraline 100 MG Tab PO SCH (19:45)
[2017-06-16] MEDS: ALPRAZolam 0.25 MG Tab PO SCH (19:45)
[2017-06-16] MEDS: [UNRECOGNIZED DRUG - REMARK] TRDERM SCH (21:42)
[2017-06-16] MEDS: Scopolamine 1.5 MG Transdermal Patch TRDERM SCH (21:43)
[2017-06-17] MEDS: buPROPion 150 MG Tab.SR PO SCH (08:00)
[2017-06-17] MEDS: Diltiazem 120 MG Cap.CD PO SCH (08:00)
[2017-06-17] MEDS: Simethicone 80 MG Tab.Chew PO SCH ×3 (08:00→17:22)
[2017-06-17] MEDS: Losartan 100 MG Tab PO SCH (08:00)
[2017-06-17] MEDS: Polyethylene Glycol 3350 Powder 17 GM Packet PO SCH (08:00)
[2017-06-17] MEDS: Gabapentin 100 MG Cap PO SCH ×3 (08:00→19:25)
[2017-06-17] MEDS: Aspirin 81 MG Tab.EC PO SCH (08:00)
[2017-06-17] MEDS: Allopurinol 100 MG Tab PO SCH (08:00)
[2017-06-17] MEDS: Pantoprazole 40 MG Tab.CR PO SCH (08:00)
[2017-06-17] MEDS: Enoxaparin 30 MG/0.3 ML Syringe SUBCUT SCH (08:01)
[2017-06-17] MEDS: Furosemide 80 MG Tab PO SCH (08:01)
[2017-06-17] MEDS: Carvedilol 3.125 MG Tab PO SCH ×2 (08:01→19:25)
[2017-06-17] MEDS: Insulin Detemir 100 Units/ML 3 ML Pen SUBCUT SCH ×2 (08:02→19:26)
[2017-06-17] MEDS: Insulin Aspart 100 Units/ML 3 ML Pen SUBCUT SCH ×4 (08:04→20:35)
[2017-06-17] MEDS: Budesonide 0.5 MG/2 ML Neb Susp NEB SCH ×2 (08:05→19:26)
[2017-06-17] MEDS: Sertraline 100 MG Tab PO SCH (19:25)
[2017-06-17] MEDS: ALPRAZolam 0.25 MG Tab PO SCH (19:25)
[2017-06-18] MEDS: Pantoprazole 40 MG Tab.CR PO SCH (06:43)
[2017-06-18] MEDS: Budesonide 0.5 MG/2 ML Neb Susp NEB SCH ×2 (08:08→20:34)
[2017-06-18] MEDS: Diltiazem 120 MG Cap.CD PO SCH (08:08)
[2017-06-18] MEDS: Enoxaparin 30 MG/0.3 ML Syringe SUBCUT SCH (08:08)
[2017-06-18] MEDS: buPROPion 150 MG Tab.SR PO SCH (08:08)
[2017-06-18] MEDS: Polyethylene Glycol 3350 Powder 17 GM Packet PO SCH (08:08)
[2017-06-18] MEDS: Aspirin 81 MG Tab.EC PO SCH (08:09)
[2017-06-18] MEDS: Gabapentin 100 MG Cap PO SCH ×3 (08:09→20:33)
[2017-06-18] MEDS: Losartan 100 MG Tab PO SCH (08:09)
[2017-06-18] MEDS: Allopurinol 100 MG Tab PO SCH (08:09)
[2017-06-18] MEDS: Furosemide 80 MG Tab PO SCH (08:09)
[2017-06-18] MEDS: Carvedilol 3.125 MG Tab PO SCH ×2 (08:09→20:33)
[2017-06-18] MEDS: Simethicone 80 MG Tab.Chew PO SCH ×3 (08:09→17:34)
[2017-06-18] MEDS: Insulin Detemir 100 Units/ML 3 ML Pen SUBCUT SCH ×2 (08:13→20:35)
[2017-06-18] MEDS: Insulin Aspart 100 Units/ML 3 ML Pen SUBCUT SCH ×4 (08:14→21:58)
[2017-06-18] MEDS: Acetaminophen 325 MG Tab PO PRN (13:59)
[2017-06-18] MEDS: Sertraline 100 MG Tab PO SCH (20:33)
[2017-06-18] MEDS: ALPRAZolam 0.25 MG Tab PO SCH (20:34)
[2017-06-19] MEDS: Budesonide 0.5 MG/2 ML Neb Susp NEB SCH ×2 (08:08→19:43)
[2017-06-19] MEDS: Simethicone 80 MG Tab.Chew PO SCH ×3 (08:08→18:02)
[2017-06-19] MEDS: Polyethylene Glycol 3350 Powder 17 GM Packet PO SCH (08:08)
[2017-06-19] MEDS: Allopurinol 100 MG Tab PO SCH (08:08)
[2017-06-19] MEDS: Enoxaparin 30 MG/0.3 ML Syringe SUBCUT SCH (08:08)
[2017-06-19] MEDS: Aspirin 81 MG Tab.EC PO SCH (08:09)
[2017-06-19] MEDS: buPROPion 150 MG Tab.SR PO SCH (08:09)
[2017-06-19] MEDS: Pantoprazole 40 MG Tab.CR PO SCH (08:09)
[2017-06-19] MEDS: Diltiazem 120 MG Cap.CD PO SCH (08:10)
[2017-06-19] MEDS: Gabapentin 100 MG Cap PO SCH ×3 (08:10→19:42)
[2017-06-19] MEDS: Losartan 100 MG Tab PO SCH (08:10)
[2017-06-19] MEDS: Furosemide 80 MG Tab PO SCH (08:10)
[2017-06-19] MEDS: Carvedilol 3.125 MG Tab PO SCH ×2 (08:10→19:42)
[2017-06-19] MEDS: Insulin Detemir 100 Units/ML 3 ML Pen SUBCUT SCH ×2 (08:16→19:43)
[2017-06-19] MEDS: Insulin Aspart 100 Units/ML 3 ML Pen SUBCUT SCH ×4 (08:16→21:08)
[2017-06-19] MEDS: Ondansetron 4 MG Tab.DIS PO PRN (12:41)
[2017-06-19] MEDS: Sertraline 100 MG Tab PO SCH (19:42)
[2017-06-19] MEDS: ALPRAZolam 0.25 MG Tab PO SCH (19:43)
[2017-06-19] MEDS: Scopolamine 1.5 MG Transdermal Patch TRDERM SCH (21:10)
[2017-06-19] MEDS: [UNRECOGNIZED DRUG - REMARK] TRDERM SCH (21:11)
[2017-06-20] MEDS: Pantoprazole 40 MG Tab.CR PO SCH (06:10)
[2017-06-20] MEDS: Polyethylene Glycol 3350 Powder 17 GM Packet PO SCH (07:46)
[2017-06-20] MEDS: Budesonide 0.5 MG/2 ML Neb Susp NEB SCH ×2 (07:47→21:28)
[2017-06-20] MEDS: Enoxaparin 30 MG/0.3 ML Syringe SUBCUT SCH (07:47)
[2017-06-20] MEDS: Aspirin 81 MG Tab.EC PO SCH (07:49)
[2017-06-20] MEDS: Allopurinol 100 MG Tab PO SCH (07:50)
[2017-06-20] MEDS: Furosemide 80 MG Tab PO SCH (07:50)
[2017-06-20] MEDS: Simethicone 80 MG Tab.Chew PO SCH ×3 (07:50→17:34)
[2017-06-20] MEDS: buPROPion 150 MG Tab.SR PO SCH (07:50)
[2017-06-20] MEDS: Gabapentin 100 MG Cap PO SCH ×3 (07:50→21:28)
[2017-06-20] MEDS: Carvedilol 3.125 MG Tab PO SCH ×2 (07:52→21:24)
[2017-06-20] MEDS: Losartan 100 MG Tab PO SCH (07:52)
[2017-06-20] MEDS: Insulin Detemir 100 Units/ML 3 ML Pen SUBCUT SCH ×2 (08:15→21:25)
[2017-06-20] MEDS: Insulin Aspart 100 Units/ML 3 ML Pen SUBCUT SCH ×4 (08:16→21:29)
[2017-06-20] MEDS: Diltiazem 120 MG Cap.CD PO SCH (08:16)
[2017-06-20] MEDS: Sertraline 100 MG Tab PO SCH (21:27)
[2017-06-20] MEDS: ALPRAZolam 0.25 MG Tab PO SCH (21:28)
[2017-06-21] MEDS: Pantoprazole 40 MG Tab.CR PO SCH (06:29)
[2017-06-21] MEDS: Budesonide 0.5 MG/2 ML Neb Susp NEB SCH ×2 (08:07→20:11)
[2017-06-21] MEDS: buPROPion 150 MG Tab.SR PO SCH (08:07)
[2017-06-21] MEDS: Diltiazem 120 MG Cap.CD PO SCH (08:07)
[2017-06-21] MEDS: Polyethylene Glycol 3350 Powder 17 GM Packet PO SCH (08:07)
[2017-06-21] MEDS: Gabapentin 100 MG Cap PO SCH ×3 (08:08→20:10)
[2017-06-21] MEDS: Simethicone 80 MG Tab.Chew PO SCH ×3 (08:08→17:36)
[2017-06-21] MEDS: Losartan 100 MG Tab PO SCH (08:08)
[2017-06-21] MEDS: Furosemide 80 MG Tab PO SCH (08:08)
[2017-06-21] MEDS: Aspirin 81 MG Tab.EC PO SCH (08:08)
[2017-06-21] MEDS: Carvedilol 3.125 MG Tab PO SCH ×2 (08:08→20:10)
[2017-06-21] MEDS: Enoxaparin 30 MG/0.3 ML Syringe SUBCUT SCH (08:09)
[2017-06-21] MEDS: Allopurinol 100 MG Tab PO SCH (08:09)
[2017-06-21] MEDS: Insulin Detemir 100 Units/ML 3 ML Pen SUBCUT SCH ×2 (08:10→20:12)
[2017-06-21] MEDS: Insulin Aspart 100 Units/ML 3 ML Pen SUBCUT SCH ×4 (08:10→20:11)
[2017-06-21] MEDS: ALPRAZolam 0.25 MG Tab PO SCH (20:09)
[2017-06-21] MEDS: Sertraline 100 MG Tab PO SCH (20:09)
[2017-06-22] MEDS: Pantoprazole 40 MG Tab.CR PO SCH (06:08)
[2017-06-22] MEDS: Budesonide 0.5 MG/2 ML Neb Susp NEB SCH ×2 (08:21→20:07)
[2017-06-22] MEDS: Aspirin 81 MG Tab.EC PO SCH (08:21)
[2017-06-22] MEDS: Enoxaparin 30 MG/0.3 ML Syringe SUBCUT SCH (08:21)
[2017-06-22] MEDS: Polyethylene Glycol 3350 Powder 17 GM Packet PO SCH (08:21)
[2017-06-22] MEDS: Simethicone 80 MG Tab.Chew PO SCH ×3 (08:21→17:45)
[2017-06-22] MEDS: buPROPion 150 MG Tab.SR PO SCH (08:21)
[2017-06-22] MEDS: Diltiazem 120 MG Cap.CD PO SCH (08:22)
[2017-06-22] MEDS: Losartan 100 MG Tab PO SCH (08:22)
[2017-06-22] MEDS: Carvedilol 3.125 MG Tab PO SCH ×2 (08:22→20:07)
[2017-06-22] MEDS: Gabapentin 100 MG Cap PO SCH ×3 (08:23→20:09)
[2017-06-22] MEDS: Allopurinol 100 MG Tab PO SCH (08:23)
[2017-06-22] MEDS: Furosemide 80 MG Tab PO SCH (08:23)
[2017-06-22] MEDS: Insulin Aspart 100 Units/ML 3 ML Pen SUBCUT SCH ×4 (08:24→20:30)
[2017-06-22] MEDS: Insulin Detemir 100 Units/ML 3 ML Pen SUBCUT SCH ×2 (08:26→20:29)
[2017-06-22] MEDS: Sertraline 100 MG Tab PO SCH (20:08)
[2017-06-22] MEDS: ALPRAZolam 0.25 MG Tab PO SCH (20:09)
[2017-06-22] MEDS: [UNRECOGNIZED DRUG - REMARK] TRDERM SCH (22:15)
[2017-06-22] MEDS: Scopolamine 1.5 MG Transdermal Patch TRDERM SCH (22:16)
[2017-06-23] MEDS: Pantoprazole 40 MG Tab.CR PO SCH (06:28)
[2017-06-23] MEDS: Enoxaparin 30 MG/0.3 ML Syringe SUBCUT SCH (08:24)
[2017-06-23] MEDS: Simethicone 80 MG Tab.Chew PO SCH ×3 (08:24→17:26)
[2017-06-23] MEDS: Budesonide 0.5 MG/2 ML Neb Susp NEB SCH ×2 (08:24→20:32)
[2017-06-23] MEDS: Polyethylene Glycol 3350 Powder 17 GM Packet PO SCH (08:24)
[2017-06-23] MEDS: Allopurinol 100 MG Tab PO SCH (08:25)
[2017-06-23] MEDS: Furosemide 80 MG Tab PO SCH (08:25)
[2017-06-23] MEDS: Aspirin 81 MG Tab.EC PO SCH (08:25)
[2017-06-23] MEDS: Diltiazem 120 MG Cap.CD PO SCH (08:25)
[2017-06-23] MEDS: Losartan 100 MG Tab PO SCH (08:25)
[2017-06-23] MEDS: Gabapentin 100 MG Cap PO SCH ×3 (08:25→20:33)
[2017-06-23] MEDS: Carvedilol 3.125 MG Tab PO SCH ×2 (08:25→20:33)
[2017-06-23] MEDS: Insulin Aspart 100 Units/ML 3 ML Pen SUBCUT SCH ×4 (08:28→20:37)
[2017-06-23] MEDS: Insulin Detemir 100 Units/ML 3 ML Pen SUBCUT SCH ×2 (08:28→20:36)
[2017-06-23] MEDS: buPROPion 150 MG Tab.SR PO SCH (08:36)
[2017-06-23] MEDS: Sertraline 100 MG Tab PO SCH (20:32)
[2017-06-23] MEDS: ALPRAZolam 0.25 MG Tab PO SCH (20:33)
[2017-06-24] MEDS: Pantoprazole 40 MG Tab.CR PO SCH (06:42)
[2017-06-24] MEDS: Polyethylene Glycol 3350 Powder 17 GM Packet PO SCH (08:18)
[2017-06-24] MEDS: buPROPion 150 MG Tab.SR PO SCH (08:19)
[2017-06-24] MEDS: Enoxaparin 30 MG/0.3 ML Syringe SUBCUT SCH (08:19)
[2017-06-24] MEDS: Carvedilol 3.125 MG Tab PO SCH ×2 (08:19→21:30)
[2017-06-24] MEDS: Budesonide 0.5 MG/2 ML Neb Susp NEB SCH ×2 (08:19→21:36)
[2017-06-24] MEDS: Furosemide 80 MG Tab PO SCH (08:19)
[2017-06-24] MEDS: Gabapentin 100 MG Cap PO SCH ×3 (08:19→21:31)
[2017-06-24] MEDS: Diltiazem 120 MG Cap.CD PO SCH (08:20)
[2017-06-24] MEDS: Losartan 100 MG Tab PO SCH (08:20)
[2017-06-24] MEDS: Allopurinol 100 MG Tab PO SCH (08:20)
[2017-06-24] MEDS: Aspirin 81 MG Tab.EC PO SCH (08:21)
[2017-06-24] MEDS: Simethicone 80 MG Tab.Chew PO SCH ×3 (08:21→18:24)
[2017-06-24] MEDS: Insulin Aspart 100 Units/ML 3 ML Pen SUBCUT SCH ×4 (08:23→21:33)
[2017-06-24] MEDS: Insulin Detemir 100 Units/ML 3 ML Pen SUBCUT SCH ×2 (08:25→21:32)
[2017-06-24] MEDS: Ondansetron 4 MG Tab.DIS PO PRN (14:08)
[2017-06-24] MEDS: ALPRAZolam 0.25 MG Tab PO SCH (21:30)
[2017-06-24] MEDS: Sertraline 100 MG Tab PO SCH (21:31)
[2017-06-25] MEDS: Pantoprazole 40 MG Tab.CR PO SCH (07:03)
[2017-06-25] MEDS: Budesonide 0.5 MG/2 ML Neb Susp NEB SCH ×2 (07:47→21:17)
[2017-06-25] MEDS: Carvedilol 3.125 MG Tab PO SCH ×2 (07:49→21:12)
[2017-06-25] MEDS: Furosemide 80 MG Tab PO SCH (07:49)
[2017-06-25] MEDS: Allopurinol 100 MG Tab PO SCH (07:49)
[2017-06-25] MEDS: Simethicone 80 MG Tab.Chew PO SCH ×3 (07:49→17:28)
[2017-06-25] MEDS: Gabapentin 100 MG Cap PO SCH ×3 (07:49→21:13)
[2017-06-25] MEDS: Enoxaparin 30 MG/0.3 ML Syringe SUBCUT SCH (07:50)
[2017-06-25] MEDS: Polyethylene Glycol 3350 Powder 17 GM Packet PO SCH (07:50)
[2017-06-25] MEDS: Diltiazem 120 MG Cap.CD PO SCH (07:50)
[2017-06-25] MEDS: buPROPion 150 MG Tab.SR PO SCH (07:50)
[2017-06-25] MEDS: Losartan 100 MG Tab PO SCH (07:50)
[2017-06-25] MEDS: Aspirin 81 MG Tab.EC PO SCH (07:50)
[2017-06-25] MEDS: Insulin Detemir 100 Units/ML 3 ML Pen SUBCUT SCH ×2 (07:52→21:16)
[2017-06-25] MEDS: Insulin Aspart 100 Units/ML 3 ML Pen SUBCUT SCH ×4 (07:53→21:14)
[2017-06-25] MEDS: ALPRAZolam 0.25 MG Tab PO SCH (21:13)
[2017-06-25] MEDS: Sertraline 100 MG Tab PO SCH (21:13)
[2017-06-25] MEDS: Scopolamine 1.5 MG Transdermal Patch TRDERM SCH (21:29)
[2017-06-25] MEDS: [UNRECOGNIZED DRUG - REMARK] TRDERM SCH (21:29)
[2017-06-26] MEDS: Pantoprazole 40 MG Tab.CR PO SCH (06:28)
[2017-06-26] MEDS: Acetaminophen 325 MG Tab PO PRN (06:28)
[2017-06-26] MEDS: Insulin Detemir 100 Units/ML 3 ML Pen SUBCUT SCH ×3 (06:29→20:24)
[2017-06-26] MEDS: Gabapentin 100 MG Cap PO SCH ×4 (06:32→20:24)
[2017-06-26] MEDS: Simethicone 80 MG Tab.Chew PO SCH ×4 (06:32→17:52)
[2017-06-26] MEDS: Budesonide 0.5 MG/2 ML Neb Susp NEB SCH ×3 (06:34→20:27)
[2017-06-26] MEDS: Aspirin 81 MG Tab.EC PO SCH ×2 (06:36→08:25)
[2017-06-26] MEDS: Diltiazem 120 MG Cap.CD PO SCH ×2 (06:36→08:24)
[2017-06-26] MEDS: buPROPion 150 MG Tab.SR PO SCH ×2 (06:36→08:30)
[2017-06-26] MEDS: Allopurinol 100 MG Tab PO SCH ×2 (06:37→08:29)
[2017-06-26] MEDS: Carvedilol 3.125 MG Tab PO SCH ×3 (06:38→20:24)
[2017-06-26] MEDS: Furosemide 80 MG Tab PO SCH ×2 (06:38→08:25)
[2017-06-26] MEDS: Losartan 100 MG Tab PO SCH ×2 (06:43→08:25)
[2017-06-26] MEDS: Insulin Aspart 100 Units/ML 3 ML Pen SUBCUT SCH ×4 (08:27→22:56)
[2017-06-26] MEDS: Polyethylene Glycol 3350 Powder 17 GM Packet PO SCH (08:30)
[2017-06-26] MEDS: Enoxaparin 30 MG/0.3 ML Syringe SUBCUT SCH (08:30)
[2017-06-26] MEDS: Sertraline 100 MG Tab PO SCH (20:23)
[2017-06-26] MEDS: ALPRAZolam 0.25 MG Tab PO SCH (20:23)
[2017-06-27] MEDS: Pantoprazole 40 MG Tab.CR PO SCH (06:44)
[2017-06-27] MEDS: Aspirin 81 MG Tab.EC PO SCH (07:39)
[2017-06-27] MEDS: Polyethylene Glycol 3350 Powder 17 GM Packet PO SCH (07:39)
[2017-06-27] MEDS: Diltiazem 120 MG Cap.CD PO SCH (07:39)
[2017-06-27] MEDS: Gabapentin 100 MG Cap PO SCH ×3 (07:39→20:01)
[2017-06-27] MEDS: Allopurinol 100 MG Tab PO SCH (07:39)
[2017-06-27] MEDS: buPROPion 150 MG Tab.SR PO SCH (07:40)
[2017-06-27] MEDS: Furosemide 80 MG Tab PO SCH (07:40)
[2017-06-27] MEDS: Simethicone 80 MG Tab.Chew PO SCH ×3 (07:40→17:31)
[2017-06-27] MEDS: Carvedilol 3.125 MG Tab PO SCH ×2 (07:40→20:01)
[2017-06-27] MEDS: Losartan 100 MG Tab PO SCH (07:40)
[2017-06-27] MEDS: Enoxaparin 30 MG/0.3 ML Syringe SUBCUT SCH (07:40)
[2017-06-27] MEDS: Insulin Aspart 100 Units/ML 3 ML Pen SUBCUT SCH ×3 (07:41→17:28)
[2017-06-27] MEDS: Insulin Detemir 100 Units/ML 3 ML Pen SUBCUT SCH ×2 (07:41→20:03)
[2017-06-27] MEDS: Budesonide 0.5 MG/2 ML Neb Susp NEB SCH ×2 (07:42→20:01)
[2017-06-27] MEDS: Sertraline 100 MG Tab PO SCH (20:01)
[2017-06-27] MEDS: ALPRAZolam 0.25 MG Tab PO SCH (20:02)
[2017-06-28] MEDS: Insulin Aspart 100 Units/ML 3 ML Pen SUBCUT SCH ×3 (00:10→12:59)
[2017-06-28] MEDS: Polyethylene Glycol 3350 Powder 17 GM Packet PO SCH (07:40)
[2017-06-28] MEDS: Budesonide 0.5 MG/2 ML Neb Susp NEB SCH (07:40)
[2017-06-28] MEDS: Enoxaparin 30 MG/0.3 ML Syringe SUBCUT SCH (07:40)
[2017-06-28] MEDS: Diltiazem 120 MG Cap.CD PO SCH (07:40)
[2017-06-28] MEDS: Gabapentin 100 MG Cap PO SCH ×2 (07:40→13:52)
[2017-06-28] MEDS: Allopurinol 100 MG Tab PO SCH (07:45)
[2017-06-28] MEDS: Losartan 100 MG Tab PO SCH (07:45)
[2017-06-28] MEDS: Simethicone 80 MG Tab.Chew PO SCH ×2 (07:45→12:58)
[2017-06-28] MEDS: Aspirin 81 MG Tab.EC PO SCH (07:45)
[2017-06-28] MEDS: Furosemide 80 MG Tab PO SCH (07:45)
[2017-06-28] MEDS: Pantoprazole 40 MG Tab.CR PO SCH (07:45)
[2017-06-28] MEDS: buPROPion 150 MG Tab.SR PO SCH (07:45)
[2017-06-28] MEDS: Carvedilol 3.125 MG Tab PO SCH (07:45)
[2017-06-28 07:46] VITALS: BP 177/86
[2017-06-28] MEDS: Insulin Detemir 100 Units/ML 3 ML Pen SUBCUT SCH (09:49)
--- NOTE | 2017-07-01 07:50 | DISCH ---
CONDITION ON DISCHARGE: Fair. DISCHARGE DIAGNOSIS: 1. STATUS POST COLECTOMY WITH ILEOSTOMY. 2. OPEN ABDOMINAL WOUND. HISTORY: Lucila is a 72-year-old female, who was admitted on the 05/29/2017 after being returning from undergoing colectomy with osteotomy placement. She did have an open wound. She was given daily wound dressing changes, wet-to-dry. She is currently not taking any pain medications. She did have some significant edema in the left lower extremity, which has improved significantly. She is getting around, has learned how to change her dressings wet-to-dry. We did Home Health for her as well at this point in time. She has been taught on how to change her colostomy as well. She has her daughter, who has been involved with her colostomy cares and wet-to-dry dressings as well, who will be closely monitoring her. Again, incision is slowly improving. It is for the most part closed by secondary intention. Colostomy is intact. PHYSICAL EXAMINATION: VITAL SIGNS: Blood pressure 142/58, respirations 20, O2 is 97% on room air, pulse 79 with a temperature 97.7. GENERAL: Pleasant, cooperative, female. She is lying in her bed, does not appear to be in any acute distress, having normal conversation with me. HEENT: Grossly unremarkable. LUNGS: Clear to auscultation. I do not hear any adventitious sounds. CARDIAC: Regular rate and rhythm. No murmurs noted. ABDOMEN: Soft. Her colostomy again is intact as brown soft stool present. No tenderness noted with palpation to the abdomen. Wound incision is midline, does not appear to be healing appropriately. I do not see any foul order or drainage. DISCHARGE INSTRUCTIONS: We will resume all home medications. We will keep her on scopolamine patch for nausea, which she has done well with. We will have her stay on a sliding scale insulin with meals. Otherwise, she will continue normal dose of all medications. We will have her follow up with Dr. Oliveira in 1 week with a log of blood sugars as well. Home Health will be assisting the patient, will be seeing her tomorrow. Her daughter, Ginette is going to pick her up today at this point in time to take her home. Lucila verbalized complete understanding. We will discharge her at this time. DEREK/BAILEY /[id number]
== END 2017-06-28 16:32 | disposition home or self-care (01) | DRG 950 ==
LOC: CC.MS 14:09
PROVIDERS: ADMIT Family Medicine; ATTEND Family Medicine
DX: Z48.815 Encounter for surgical aftercare following surgery on the digestive system (principal); Z43.3 Encounter for attention to colostomy; E11.9 Type 2 diabetes mellitus without complications; Z51.5 Encounter for palliative care; R60.1 Generalized edema; F32.9 Major depressive disorder, single episode, unspecified; I25.10 Atherosclerotic heart disease of native coronary artery without angina pectoris; I11.0 Hypertensive heart disease with heart failure; I50.9 Heart failure, unspecified; M19.90 Unspecified osteoarthritis, unspecified site; F41.9 Anxiety disorder, unspecified; Z96.649 Presence of unspecified artificial hip joint; Z96.659 Presence of unspecified artificial knee joint; Z79.899 Other long term (current) drug therapy; Z79.82 Long term (current) use of aspirin; Z79.4 Long term (current) use of insulin
CPT/HCPCS: 36415; 80053; 81001; 82962; 83880; 85025; 86140; 94640; 97110-GP; 97112-GP; 97116-GP; 97162-GP; 97530-GP; A9270-GY; J1650; J1815-GY

== ENCOUNTER 2017-07-21 15:59 | Emergency (ER) | payer MEDICARE, OTHER ==
[2017-07-21] MEDS ORDERED: Acetaminophen/HYDROcodone 325-5 MG Tab PO ONE (16:00)
[2017-07-21 16:29] VITALS: BP 139/62
--- NOTE | 2017-07-21 16:38 | EDM.PDOC ---
ED HPI GENERAL MEDICAL PROBLEM - General Chief Complaint: Neck Problem Stated Complaint: "I FELL ON SATURDAY NIGHT" Time Seen by Provider: 07/21/17 16:24 Source of Information: Reports: Patient History Limitations: Reports: No Limitations - History of Present Illness INITIAL COMMENTS - FREE TEXT/NARRATIVE: This patient is a 72 year old well known patient to the ER. Patient presents and reports that on night she tripped over her feet at home and fell. She reports she was in her bathroom without walker holding onto counter when she fell. Patient reports that she did not come in on , Saturday, or Saturday due to feeling fine. Patient reports today the pain is a little worse. Patient reports that when she fell she hit her head on the wall hitting sheet rock. She reports her neck hit the heater vent.The patient reports after she hit her head on , she had vomited x2. Patient reports that she has headache, pain to neck, pain to the right shoulder, pain to the jaw bilaterally when she eats. Patient denies any other injuries. Patient denies dizziness, n, vomiting since , cp, soa, abd pain, back pain, urinary/bowel changes, extremity pain other than right shoulder. Pulses +2, cap refill <2 sec, sensor/ motor function intact. Neurovascular intact. Onset Date: 07/18/17 Duration: Day(s): (3) Location: Reports: Head, Face, Neck, Upper Extremity, Right Quality: Reports: Ache Severity: Moderate Improves with: Reports: None Worsens with: Reports: Movement Associated Symptoms: Reports: Nausea/Vomiting (x2 on after falling per patient. ). Denies: Confusion, Chest Pain, Cough, cough w sputum, Diaphoresis, Fever/Chills, Headaches, Loss of Appetite, Malaise, Rash, Seizure, Shortness of Breath, Syncope Treatments [employer]: Reports: Acetaminophen, Other (see below) Other Treatments [employer] SUPER[employer]OR: Ultram Generalized Pain Score (Numeric/FACES): 10 - Related Data Allergies Allergy/AdvReac Type Severity Reaction Status Date / Time acetaminophen [From Percocet] Allergy Itching Verified 07/21/17 16:06 lisinopril Allergy Rash Verified 07/21/17 16:06 oxycodone [From Percocet] Allergy Itching Verified 07/21/17 16:06 paper tape Allergy Rash Uncoded 07/21/17 16:06 Home Meds: Home Meds Pantoprazole [ProTONIX] 40 mg PO DAILY 45 Days tab.cr 11/26/13 [Rx] Carvedilol [Coreg] 3.125 mg PO BID #60 tablet 06/16/15 [Rx] Furosemide [Lasix] 80 mg PO DAILY #30 tablet 06/16/15 [Rx] Diltiazem HCl [Cardizem Cd] 240 mg PO DAILY #0 08/25/15 [Rx] Valsartan 160 mg PO DAILY #0 12/30/15 [Rx] ALPRAZolam [Xanax] 0.5 mg PO BEDTIME 05/10/16 [History] Acetaminophen 1 - 2 tab PO Q4H PRN 11/05/16 [History] Aspirin 81 mg PO DAILY 11/05/16 [History] Allopurinol [Zyloprim] 100 mg PO DAILY 04/21/17 [History] Gabapentin [Neurontin] 100 mg PO TID 05/14/17 [History] buPROPion HCl [Wellbutrin Xl] 300 mg PO DAILY 05/14/17 [History] Insulin Detemir [Levemir Flextouch] 25 units SUBCUT BID 05/29/17 [History] Insulin Lispro [Humalog] 2 - 15 units SUBCUT TIDMEALS 05/29/17 [History] Scopolamine [Transderm-Scop] 1.5 mg TRDERM Q72H PRN #4 patch 06/28/17 [Rx] Sertraline [Zoloft] 50 mg PO BEDTIME #30 tablet 06/28/17 [Rx] Simethicone 80 mg PO TIDMEALS #90 tab.chew 06/28/17 [Rx] Potassium Chloride [Klor-Con 10] 10 meq PO DAILY 07/21/17 [History] Past Medical History HEENT History: Reports: Sinusitis Cardiovascular History: Reports: CAD, Heart Failure, Hypertension Respiratory History: Reports: Bronchitis, Recurrent Gastrointestinal History: Reports: Other (See Below) Other Gastrointestinal History: perforated sigmoid colon Genitourinary History: Reports: Other (See Below) Other Genitourinary History: hs of surgery on kidney, pt unaware of why Musculoskeletal History: Reports: Osteoarthritis Psychiatric History: Reports: Anxiety, Depression Endocrine/Metabolic History: Reports: Diabetes, Type II Hematologic History: Reports: None - Past Surgical History Cardiovascular Surgical History: Reports: Carotid Stents GI Surgical History: Reports: Appendectomy, Colonoscopy, Colostomy, Hernia, Abdominal, Hernia Repair/Other, Lysis of Adhesions, Polypectomy Neurological Surgical History: Reports: Other (See Below) Musculoskeletal Surgical History: Reports: Hip Replacement, Knee Replacement Oncologic Surgical History: Reports: None Dermatological Surgical History: Reports: None Social & Family History - Family History Family Medical History: Noncontributory Cardiac: Reports: CAD, Heart Failure, Hypertension Neurological: Reports: Cerebral Aneurysms - Tobacco Use Smoking Status *Q: Never Smoker Years of Tobacco use: 40 Packs/Tins Daily: 2 Used Tobacco, but Quit: No Second Hand Smoke Exposure: No - Caffeine Use Caffeine Use: Reports: Coffee - Alcohol Use Days Per Week of Alcohol Use: 1 Number of Drinks Per Day: 4 Total Drinks Per Week: 4 - Recreational Drug Use Recreational Drug Use: No - Sexual History Sexual History: Reports: None - Living Situation & Occupation Living situation: Reports: , Single, with Significant Other Occupation: Employed ED ROS GENERAL - Review of Systems Review Of Systems: See Below Constitutional: Reports: No Symptoms HEENT: Reports: Other (bialteral jaw pain) Respiratory: Reports: No Symptoms Cardiovascular: Reports: No Symptoms Endocrine: Reports: No Symptoms GI/Abdominal: Reports: No Symptoms : Reports: No Symptoms Musculoskeletal: Reports: Neck Pain, Shoulder Pain (right) Skin: Reports: No Symptoms Neurological: Reports: Headache. Denies: Confusion, Dizziness, Numbness, Seizure, Syncope, Tingling, Tremors, Trouble Speaking, Difficulty Walking, Weakness, Change in Speech, Gait Disturbance Psychiatric: Reports: No Symptoms Hematologic/Lymphatic: Reports: No Symptoms Immunologic: Reports: No Symptoms ED EXAM, HEAD INJURY - Physical Exam Exam: See Below Exam Limited By: No Limitations General Appearance: Alert, WD/WN, No Apparent Distress Head: Atraumatic, Normocephalic, Facial Tenderness (mild bilateral mandible. ). No: Scalp Lacerations, Scalp Swelling, Scalp Abrasions, Scalp Ecchymosis, Scalp Hematoma, Scalp Tenderness, Active Bleeding, Facial Abrasions, Facial Ecchymosis, Facial Lacerations, Facial Swelling, Sinus Tenderness, Raccoon Eyes Nexus Criteria: Posterior, Midline Cervical Tenderness. No: Evidence of Intoxication, Altered Level of Consciousness, Focal Neurological Deficit, Painful Distraction Injuries Eyes: Bilateral Eye: EOMI, Normal Inspection, PERRL Ears: Normal External Exam, Normal Canal, Hearing Grossly Normal, Normal TMs Nose: Normal Inspection, Normal Mucousa, No Blood Throat/Mouth: Normal Inspection, Normal Lips, Normal Teeth, Normal Gums, Normal Oropharynx, Normal Voice, No Airway Compromise Neck: Full Range of Motion, Normal Alignment, Normal Inspection, Painful Range of Motion, Paraspinous Muscle Tender, Spinous Processes Tender, Tender Lateral, Tender Midline. No: Abnormal Alignment, Limited Range of Motion, Muscle Spasm Respiratory: No Respiratory Distress, Lungs Clear, Normal Breath Sounds, No Accessory Muscle Use, Chest Non-Tender Cardiovascular: Normal Peripheral Pulses, Regular Rate, Rhythm, No Gallop, No JVD, No Murmur, No Rub, Other (edema 1 BLE. ) GI/Abdominal Exam: Normal Bowel Sounds, Soft, Non-Tender, No Organomegaly, No Distention, No Abnormal Bruit, No Mass, Pelvis Stable (Female) Exam: Deferred Rectal (Female) Exam: Deferred Back Exam: Normal Inspection, Full Range of Motion. No: CVA Tenderness (L), CVA Tenderness (R), Decreased Range of Motion, Muscle Spasm, Paraspinal Tenderness, Vertebral Tenderness Extremities: Normal Inspection, Normal Range of Motion, Normal Capillary Refill , Other (Right anterior shoulder pain, tenderness. ROM intact. ) Neurologic: No Motor/Sensory Deficits, Alert, Normal Mood/Affect, Oriented x 3 Skin: Normal Color, Warm/Dry - Samantha Coma Score Best Eye Response ([place]): (4) Open Spontaneously Best Verbal Response ([place]): (5) Oriented Best Motor Response ([place]antha): (6) Obeys Commands Course - Vital Signs Last Recorded V/S: Last Vital Signs Temp 97.9 F 07/21/17 16:27 Pulse 90 07/21/17 16:27 Resp 20 07/21/17 16:27 BP 139/62 07/21/17 16:27 Pulse Ox 97 07/21/17 16:27 - Orders/Labs/Meds Orders: Active Orders 24 hr Category Date Time Status Cervical Spine wo Cont [CT] Stat Exams 07/21/17 16:31 Taken Head wo Cont [CT] Stat Exams 07/21/17 16:31 Taken Max Facial Sinus wo Cont [CT] Stat Exams 07/21/17 16:31 Taken Shoulder Comp Rt [CR] Stat Exams 07/21/17 16:31 Taken - Radiology Interpretation Free Text/Narrative:: Cervical CT: No acute findings or fractures. Discussed with radiologist Head, Facial CT: No acute findings. CT Results Date: 07/21/17 CT Results Time: 18:58 Departure - Departure Time of Disposition: 19:01 Disposition: Home, Self-Care 01 Condition: Fair Clinical Impression: Cervical strain, acute Qualifiers: Encounter type: initial encounter Qualified Code(s): S16.1XXA - Strain of muscle, fascia and tendon at neck level, initial encounter Fall Qualifiers: Encounter type: initial encounter Qualified Code(s): W19.XXXA - Unspecified fall, initial encounter Head injury Qualifiers: Encounter type: initial encounter Qualified Code(s): S09.90XA - Unspecified injury of head, initial encounter Shoulder strain Qualifiers: Encounter type: initial encounter Laterality: right Qualified Code(s): S46.911A - Strain of unspecified muscle, fascia and tendon at shoulder and upper arm level, right arm, initial encounter - Discharge Information Instructions: Head Injury, Adult, Cervical Sprain, [id number], Muscle Strain Referrals: Ronald Willis MD [Primary Care Provider] - Forms: ED Department Discharge Additional Instructions: Followup with your primary care provider Return to the ER for worsening of condition or any emergent concerns Rest Ice Sling to shoulder as needed [place] 5/325mg 1-2 pills every 4-6 hours as needed for pain #12 - My Orders Last 24 Hours: My Active Orders 07/21/17 16:31 Cervical Spine wo Cont [CT] Stat Head wo Cont [CT] Stat Max Facial Sinus wo Cont [CT] Stat Shoulder Comp Rt [CR] Stat - Assessment/Plan Last 24 Hours: My Active Orders 07/21/17 16:31 Cervical Spine wo Cont [CT] Stat Head wo Cont [CT] Stat Max Facial Sinus wo Cont [CT] Stat Shoulder Comp Rt [CR] Stat Plan: PLEASE SEE RN NOTE FOR PFSH.
[2017-07-21] MEDS ORDERED: Take Home: Acetaminophen/HYDROcodone 325-5 MG, 2 Tab Pack PO ONE (19:06)
== END 2017-07-21 19:15 | disposition home or self-care (01) ==
LOC: CC.ED 15:59
DX: S16.1XXA Strain of muscle, fascia and tendon at neck level, initial encounter (principal); S46.911A Strain of unspecified muscle, fascia and tendon at shoulder and upper arm level, right arm, initial encounter; S09.90XA Unspecified injury of head, initial encounter; I11.0 Hypertensive heart disease with heart failure; I50.9 Heart failure, unspecified; E11.9 Type 2 diabetes mellitus without complications; F41.9 Anxiety disorder, unspecified; F32.9 Major depressive disorder, single episode, unspecified; Z79.82 Long term (current) use of aspirin; Z79.4 Long term (current) use of insulin; Z79.899 Other long term (current) drug therapy; Z88.6 Allergy status to analgesic agent; Z91.09 Other allergy status, other than to drugs and biological substances; W01.0XXA Fall on same level from slipping, tripping and stumbling without subsequent striking against object, initial encounter; Y92.002 Bathroom of unspecified non-institutional (private) residence as the place of occurrence of the external cause
CPT/HCPCS: 70450; 70486; 72125; 73030-RT; 99284; A9270-GY

== ENCOUNTER → 2017-07-26 | Day surgery (SDC) | payer MEDICARE, OTHER ==
[~2017-07-26] MED LIST: Lactated Ringers 1,000 ML IV SCH; Midazolam 1 MG/ML 2 ML SDV IV ONE; fentaNYL 100 MCG/2 ML SDV IV ONE
[2017-07-26 08:15] VITALS: BP 176/86
--- NOTE | 2017-07-26 09:04 | OR ---
DATE OF OPERATION: 07/26/2017 PREOPERATIVE DIAGNOSIS: STATUS POST PARTIAL COLECTOMY FOR DIVERTICULITIS. POSTOPERATIVE DIAGNOSIS: STATUS POST PARTIAL COLECTOMY FOR DIVERTICULITIS. SURGEON: Kelvin Oliveira MD PROCEDURE: FULL-LENGTH COLONOSCOPY. ANESTHESIA: Conscious sedation. COMPLICATIONS: None. SPECIMEN: None. FINDINGS: 1. Full-length colonoscopy. 2. Intact colostomy site. 3. Minimal residual diverticulosis without inflammation. RECOMMENDATIONS: The patient will follow up with surgeon for consideration for colostomy takedown and reanastomosis. INDICATIONS: The patient has a recent history of ruptured diverticuli with her requiring partial colectomy. Surgeon wanted colonoscopy prior to reversal. DESCRIPTION OF PROCEDURE: The patient was prepped and draped and placed in the supine position. A lubricated Olympus colonoscope was inserted through colostomy site and relatively easily advanced to the cecal pouch. We were able to directly visualize the ileocecal valve and appendiceal orifice. The bowel prep was fine. Upon withdrawal of the scope, throughout the entire colon, I could find no signs of any polyps, masses, ulcerations, or bleeding sites. No vascular abnormalities or signs of colitis. The tissue was viable and healthy. There were a few scattered diverticuli still on the proximal side of her colostomy, but no acute inflammatory changes. All-in-all, normal exam. We then did insert the scope in the rectal vault. The patient did have stool up past the rectal vault, no rectal lesions were seen, I could not see anything in the rectosigmoid junction. Air was suctioned and scope removed without complication. KEVIN/BAILEY /[id number]
== END ==
LOC: CC.SDS 06:20
PROVIDERS: ATTEND Family Medicine
DX: K57.30 Diverticulosis of large intestine without perforation or abscess without bleeding (principal); Z90.49 Acquired absence of other specified parts of digestive tract
CPT/HCPCS: 82962; J2250; J7120

== ENCOUNTER 2017-10-31 15:02 | Observation (INO) | payer MEDICARE, OTHER ==
[2017-10-31] MEDS ORDERED: Temazepam 15 MG Cap PO PRN (16:59)
[2017-10-31] MEDS ORDERED: Ondansetron 4 MG/2 ML SDV IV PRN (16:59)
[2017-10-31] MEDS ORDERED: Acetaminophen 325 MG Tab PO PRN (16:59)
[2017-10-31] MEDS: Insulin Aspart 100 Units/ML 3 ML Pen SUBCUT SCH ×2 (17:52→22:56)
[2017-10-31] MEDS: Ondansetron 4 MG Tab.DIS PO PRN (17:53)
[2017-10-31] MEDS: Sodium Chloride 0.9% 1,000 ML IV SCH (17:53)
[2017-10-31] MEDS: Gabapentin 100 MG Cap PO SCH (20:14)
[2017-10-31] MEDS: Carvedilol 3.125 MG Tab PO SCH (20:14)
[2017-10-31] MEDS ORDERED: Enoxaparin 40 MG/0.4 ML Syringe SUBCUT SCH (22:00)
[2017-11-01] MEDS: Sodium Chloride 0.9% 1,000 ML IV SCH (07:23)
[2017-11-01] MEDS: BUPROPION HCL 300 MG PO SCH (07:25)
[2017-11-01] MEDS: DILTIAZEM HCL 240 MG PO SCH (07:26)
[2017-11-01] MEDS: ALLOPURINOL 100 MG TAB PO SCH (07:26)
[2017-11-01] MEDS: Carvedilol 3.125 MG Tab PO SCH ×2 (07:27→19:28)
[2017-11-01] MEDS: Gabapentin 100 MG Cap PO SCH ×3 (07:27→19:28)
[2017-11-01] MEDS: Pantoprazole 40 MG Tab.CR PO SCH (07:27)
[2017-11-01] MEDS: LOSARTAN 100 MG TAB PO SCH (07:28)
[2017-11-01] MEDS: Potassium Chloride 10 MEQ Tab.ER PO SCH (07:28)
[2017-11-01] MEDS: Polyethylene Glycol 3350 Powder 17 GM Packet PO SCH (07:29)
[2017-11-01] MEDS: Aspirin 81 MG Tab.Chew PO SCH (07:29)
[2017-11-01] MEDS: Enoxaparin 40 MG/0.4 ML Syringe SUBCUT SCH (07:32)
[2017-11-01] MEDS ORDERED: Sodium Chloride 0.9% 10 ML Syringe FLUSH PRN (07:43)
[2017-11-01] MEDS: Insulin Aspart 100 Units/ML 3 ML Pen SUBCUT SCH ×4 (07:53→20:40)
[2017-11-01] MEDS ORDERED: Insulin Detemir 100 Units/ML 3 ML Pen SUBCUT SCH (08:00)
[2017-11-01] MEDS: Ondansetron 4 MG Tab.DIS PO PRN ×2 (09:17→17:23)
--- NOTE | 2017-11-01 14:38 | PCM.PN ---
- General Info Date of Service: 11/01/17 Admission Dx/Problem (Free Text): Acute Renal Failure Dehydration Functional Status: Reports: Pain Controlled. Denies: Tolerating Diet, Ambulating - Review of Systems General: Reports: Weakness, Fatigue. Denies: Fever HEENT: Reports: Ear Pain, Sinus Congestion, Rhinitis Pulmonary: Reports: Shortness of Breath. Denies: Cough Cardiovascular: Reports: Chest Pain, Edema, Lightheadedness Gastrointestinal: Reports: Nausea. Denies: Abdominal Pain, Vomiting Genitourinary: Reports: No Symptoms Musculoskeletal: Reports: No Symptoms Skin: Reports: No Symptoms Neurological: Reports: No Symptoms Psychiatric: Reports: Depression - Patient Data Vitals - Most Recent: Last Vital Signs Temp 98.5 F 11/01/17 11:46 Pulse 83 11/01/17 11:46 Resp 18 11/01/17 11:46 BP 152/70 H 11/01/17 11:46 Pulse Ox 94 L 11/01/17 11:46 Weight - Most Recent: 208 lb 12.8 oz I&O - Last 24 Hours: Intake & Output 10/31/17 11/01/17 11/01/17 22:59 06:59 14:59 Intake Total 100 1000 Output Total 300 200 Balance -200 800 Lab Results Last 24 Hours: Laboratory Results - last 24 hr 10/31/17 10/31/17 10/31/17 Range/Units 17:15 17:26 17:50 WBC 9.2 (5.0-10.0) 10^3/uL RBC 3.65 L (4.00-5.50) 10^6/uL Hgb 10.6 L (12.0-16.0) g/dL Hct 33.5 L (37.0-47.0) % MCV 91.8 (82.0-94.0) fL MCH 29.0 (27.0-32.0) pg MCHC 31.6 L (33.0-38.0) g/dL RDW Coeff of Taniya 15.5 H (11.0-15.0) % Plt Count 237 (150-400) 10^3/uL Neut % (Auto) 43.1 (35-85) % Lymph % (Auto) 43.5 (10-55) % [place] % (Auto) 6.4 (0-16) % Eos % (Auto) 6.7 H (0-5) % Baso % (Auto) 0.3 (0-3) % Neut # (Auto) 3.98 (1.80-7.00) 10^3/uL Lymph # (Auto) 4.02 (1.00-4.80) 10^3/uL [place] # (Auto) 0.59 (0.00-0.80) 10^3/uL Eos # (Auto) 0.62 H (0.00-0.45) 10^3/uL Baso # (Auto) 0.03 10^3/uL Sodium (136-145) mEq/L Potassium (3.5-5.0) mEq/L Chloride (98-106) mEq/L Carbon Dioxide (21-32) mmol/L BUN (7-18) mg/dL Creatinine (0.6-1.0) mg/dL Est Cr Clr Drug Dosing mL/min Estimated GFR (MDRD) (>=60) mL/min Glucose (75-99) mg/dL POC Glucose 152 H (75-105) mg/dl Calcium (8.4-10.1) mg/dL Total Bilirubin (0.0-1.0) mg/dL AST (15-37) U/L ALT (12-78) U/L Alkaline Phosphatase (46-116) U/L C-Reactive Protein (0.2-0.8) mg/dL Total Protein (6.4-8.2) g/dL Albumin (3.4-5.0) g/dL Urine Color Yellow (YELLOW) Urine Appearance Clear (CLEAR) Urine pH 7.5 (4.5-8.0) Ur Specific [place] 1.020 (1.003-1.020) Urine Protein >=300 H (NEGATIVE) mg/dL Urine Glucose (UA) Negative (NEGATIVE) mg/dL Urine Ketones Negative (NEGATIVE) mg/dL Urine Occult Blood Trace-intact H (NEGATIVE) Urine Nitrite Negative (NEGATIVE) Urine Bilirubin Negative (NEGATIVE) Urine Urobilinogen 1.0 (0.2-1.0) EU/dL Ur Leukocyte Esterase Negative (NEGATIVE) Urine RBC 5-10 H (0-5) /HPF Urine WBC 0-5 (0-5) /HPF Ur Squamous Epith Cells Few H (NOT SEEN) /HPF Urine Bacteria Occasional H (NOT SEEN) /HPF Urine Mucus Occasional H (NOT SEEN) /HPF 10/31/17 10/31/17 11/01/17 Range/Units 17:50 20:41 07:42 WBC (5.0-10.0) 10^3/uL RBC (4.00-5.50) 10^6/uL Hgb (12.0-16.0) g/dL Hct (37.0-47.0) % MCV (82.0-94.0) fL MCH (27.0-32.0) pg MCHC (33.0-38.0) g/dL RDW Coeff of Taniya (11.0-15.0) % Plt Count (150-400) 10^3/uL Neut % (Auto) (35-85) % Lymph % (Auto) (10-55) % [place] % (Auto) (0-16) % Eos % (Auto) (0-5) % Baso % (Auto) (0-3) % Neut # (Auto) (1.80-7.00) 10^3/uL Lymph # (Auto) (1.00-4.80) 10^3/uL [place] # (Auto) (0.00-0.80) 10^3/uL Eos # (Auto) (0.00-0.45) 10^3/uL Baso # (Auto) 10^3/uL Sodium 137 (136-145) mEq/L Potassium 3.9 (3.5-5.0) mEq/L Chloride 104 (98-106) mEq/L Carbon Dioxide 28 (21-32) mmol/L BUN 15 (7-18) mg/dL Creatinine 1.1 H (0.6-1.0) mg/dL Est Cr Clr Drug Dosing 47.32 mL/min Estimated GFR (MDRD) 49 L (>=60) mL/min Glucose 159 H D (75-99) mg/dL POC Glucose 120 H 127 H (75-105) mg/dl Calcium 8.8 (8.4-10.1) mg/dL Total Bilirubin 0.4 (0.0-1.0) mg/dL AST 26 (15-37) U/L ALT 17 (12-78) U/L Alkaline Phosphatase 107 (46-116) U/L C-Reactive Protein 1.4 H (0.2-0.8) mg/dL Total Protein 6.6 (6.4-8.2) g/dL Albumin 2.6 L (3.4-5.0) g/dL Urine Color (YELLOW) Urine Appearance (CLEAR) Urine pH (4.5-8.0) Ur Specific [place] (1.003-1.020) Urine Protein (NEGATIVE) mg/dL Urine Glucose (UA) (NEGATIVE) mg/dL Urine Ketones (NEGATIVE) mg/dL Urine Occult Blood (NEGATIVE) Urine Nitrite (NEGATIVE) Urine Bilirubin (NEGATIVE) Urine Urobilinogen (0.2-1.0) EU/dL Ur Leukocyte Esterase (NEGATIVE) Urine RBC (0-5) /HPF Urine WBC (0-5) /HPF Ur Squamous Epith Cells (NOT SEEN) /HPF Urine Bacteria (NOT SEEN) /HPF Urine Mucus (NOT SEEN) /HPF 11/01/17 Range/Units 11:45 WBC (5.0-10.0) 10^3/uL RBC (4.00-5.50) 10^6/uL Hgb (12.0-16.0) g/dL Hct (37.0-47.0) % MCV (82.0-94.0) fL MCH (27.0-32.0) pg MCHC (33.0-38.0) g/dL RDW Coeff of Atniya (11.0-15.0) % Plt Count (150-400) 10^3/uL Neut % (Auto) (35-85) % Lymph % (Auto) (10-55) % [place] % (Auto) (0-16) % Eos % (Auto) (0-5) % Baso % (Auto) (0-3) % Neut # (Auto) (1.80-7.00) 10^3/uL Lymph # (Auto) (1.00-4.80) 10^3/uL [place] # (Auto) (0.00-0.80) 10^3/uL Eos # (Auto) (0.00-0.45) 10^3/uL Baso # (Auto) 10^3/uL Sodium (136-145) mEq/L Potassium (3.5-5.0) mEq/L Chloride (98-106) mEq/L Carbon Dioxide (21-32) mmol/L BUN (7-18) mg/dL Creatinine (0.6-1.0) mg/dL Est Cr Clr Drug Dosing mL/min Estimated GFR (MDRD) (>=60) mL/min Glucose (75-99) mg/dL POC Glucose 145 H (75-105) mg/dl Calcium (8.4-10.1) mg/dL Total Bilirubin (0.0-1.0) mg/dL AST (15-37) U/L ALT (12-78) U/L Alkaline Phosphatase (46-116) U/L C-Reactive Protein (0.2-0.8) mg/dL Total Protein (6.4-8.2) g/dL Albumin (3.4-5.0) g/dL Urine Color (YELLOW) Urine Appearance (CLEAR) Urine pH (4.5-8.0) Ur Specific [place] (1.003-1.020) Urine Protein (NEGATIVE) mg/dL Urine Glucose (UA) (NEGATIVE) mg/dL Urine Ketones (NEGATIVE) mg/dL Urine Occult Blood (NEGATIVE) Urine Nitrite (NEGATIVE) Urine Bilirubin (NEGATIVE) Urine Urobilinogen (0.2-1.0) EU/dL Ur Leukocyte Esterase (NEGATIVE) Urine RBC (0-5) /HPF Urine WBC (0-5) /HPF Ur Squamous Epith Cells (NOT SEEN) /HPF Urine Bacteria (NOT SEEN) /HPF Urine Mucus (NOT SEEN) /HPF Med Orders - Current: Current Medications Acetaminophen (Tylenol) 650 mg PO Q4H PRN PRN Reason: Pain (Mild 1-3)/fever Last Admin: 11/01/17 03:55 Dose: 650 mg Aspirin (Aspirin) 81 mg PO DAILY [facility] Last Admin: 11/01/17 07:29 Dose: 81 mg Enoxaparin Sodium (Lovenox) 40 mg SUBCUT Q24H [facility] Last Admin: 11/01/17 07:32 Dose: 40 mg Insulin Aspart (Novolog) 0 unit SUBCUT WITHMEALSANDBED [facility]; Protocol Last Admin: 11/01/17 12:03 Dose: Not Given Insulin Detemir (Levemir) 20 unit SUBCUT DAILY [facility] Allopurinol 100 Mg (Tab) 1 each PO DAILY [facility] Last Admin: 11/01/17 07:26 Dose: 1 each Bupropion Hcl [ Wellbutrin Xl] 300 Mg 300 mg PO DAILY [facility] Last Admin: 11/01/17 07:25 Dose: 300 mg Carvedilol 3.125 Mg (Tab) 3.125 each PO BID [facility] Last Admin: 11/01/17 07:27 Dose: 3.125 each Diltiazem Hcl [ (Cardizem Cd] 240 Mg) 240 mg PO DAILY [facility] Last Admin: 11/01/17 07:26 Dose: 240 mg Gabapentin 100 Mg (Cap) 100 each PO TID [facility] Last Admin: 11/01/17 13:51 Dose: 100 each Pantoprazole 40 Mg (Tab.Cr) 1 each PO DAILY [facility] Last Admin: 11/01/17 07:27 Dose: 1 each Potassium Chloride (10 Meq Tab.Er) 1 each PO DAILY [facility] Last Admin: 11/01/17 07:28 Dose: 1 each Losartan 100 Mg Tab 100 mg PO DAILY [facility] Last Admin: 11/01/17 07:28 Dose: 100 mg Ondansetron HCl (Zofran Odt) 8 mg PO Q6H PRN PRN Reason: nausea, able to take PO Last Admin: 11/01/17 09:17 Dose: 8 mg Ondansetron HCl (Zofran) 8 mg IV Q6H PRN PRN Reason: Nausea/Vomiting Polyethylene Glycol (Miralax) 17 gm PO DAILY [facility] Last Admin: 11/01/17 07:29 Dose: Not Given Sodium Chloride (Saline Flush) 10 ml FLUSH ASDIRECTED PRN PRN Reason: Keep Vein Open Temazepam (Restoril) 15 mg PO BEDTIME PRN PRN Reason: Sleep Discontinued Medications Enoxaparin Sodium (Lovenox) 40 mg SUBCUT Q24H [facility] Last Admin: 11/01/17 02:05 Dose: Not Given Sodium Chloride (Normal Saline) 1,000 mls @ 75 mls/hr IV ASDIRECTED [facility] Last Admin: 11/01/17 07:23 Dose: 75 mls/hr Insulin Detemir (Levemir) 25 unit SUBCUT DAILY [facility] - Exam General: Alert, Oriented HEENT: Mucous Membr. Moist/[place] Neck: Supple Lungs: Clear to Auscultation, Normal Respiratory Effort Cardiovascular: Regular Rate, Regular Rhythm GI/Abdominal Exam: Normal Bowel Sounds, Soft, Tender (tender to the midline, healing abdominal incision) Extremities: Normal Inspection, Pedal Edema Skin: Warm, Dry Wound/Incisions: Healing Well Neurological: No New Focal Deficit Psy/Mental Status: No: Depressed - Problem List & Annotations (1) Dehydration SNOMED Code(s): 02451680 Code(s): E86.0 - DEHYDRATION Status: Acute Current Visit: Yes - Problem List Review Problem List Initiated/Reviewed/Updated: Yes - My Orders Last 24 Hours: My Active Orders 11/01/17 20:00 Insulin Detemir [Levemir] 20 unit SUBCUT DAILY 11/02/17 05:11 BASIC METABOLIC PANEL,BMP [CHEM] AM C-REACTIVE PROTEIN [CHEM] AM CBC WITH AUTO DIFF [HEME] AM - Assessment Assessment:: Dehydration - Plan Plan:: Patient doing well today. Does admit to being nauseated, not having an appetite. No vomiting. Mild abdominal discomfort but incision has been healing well. Lung sounds clear. Labs on admit stable, WBC 9.2. CRP 1.4. Creatinine 1.1. Blood pressure 156/66. Decreased Levemir to 20 units at bedtime per her normal routine as blood sugars are running faiirly normal. Will continue with IV fluids. Reevaluate labs in am. Possible discharge at that time.
[2017-11-01] MEDS: Insulin Detemir 100 Units/ML 3 ML Pen SUBCUT SCH (20:40)
[2017-11-02] MEDS: Polyethylene Glycol 3350 Powder 17 GM Packet PO SCH (08:12)
[2017-11-02] MEDS: Enoxaparin 40 MG/0.4 ML Syringe SUBCUT SCH (08:12)
[2017-11-02] MEDS: Aspirin 81 MG Tab.Chew PO SCH (08:12)
[2017-11-02] MEDS: DILTIAZEM HCL 240 MG PO SCH (08:13)
[2017-11-02] MEDS: ALLOPURINOL 100 MG TAB PO SCH (08:13)
[2017-11-02] MEDS: Potassium Chloride 10 MEQ Tab.ER PO SCH (08:13)
[2017-11-02] MEDS: Pantoprazole 40 MG Tab.CR PO SCH (08:13)
[2017-11-02] MEDS: Carvedilol 3.125 MG Tab PO SCH (08:13)
[2017-11-02] MEDS: LOSARTAN 100 MG TAB PO SCH (08:13)
[2017-11-02] MEDS: Gabapentin 100 MG Cap PO SCH (08:13)
[2017-11-02] MEDS: BUPROPION HCL 300 MG PO SCH (08:13)
[2017-11-02] MEDS: Insulin Detemir 100 Units/ML 3 ML Pen SUBCUT SCH (08:15)
[2017-11-02] MEDS: Insulin Aspart 100 Units/ML 3 ML Pen SUBCUT SCH (08:16)
--- NOTE | 2017-11-02 09:11 | PCM.DCSUM1 ---
Discharge Summary - Hospital Course Free Text/Narrative:: Was admitted yesterday for nausea and weakness. She is feeling much better at this time. Diagnosis: Stroke: No - Discharge Data Discharge Date: 11/02/17 Discharge Disposition: Home, Self-Care 01 Condition: Good - Discharge Diagnosis/Problem(s) (1) Dehydration SNOMED Code(s): 48298123 ICD Code: E86.0 - DEHYDRATION Status: Acute Current Visit: Yes - Patient Summary/Data Recommended Follow-up Testing/Procedures: Follow up with Dr. Oliveira in 1 week. - Patient Instructions Diet: Regular Diet as Tolerated Activity: As Tolerated Showering/Bathing: May Shower - Discharge Plan *PRESCRIPTION DRUG MONITORING PROGRAM REVIEWED*: Not Applicable *COPY OF PRESCRIPTION DRUG MONITORING REPORT IN PATIENT CORNELIO: Not Applicable Home Medications: Home Meds Pantoprazole [ProTONIX] 40 mg PO DAILY 45 Days tab.cr 11/26/13 [Rx] Carvedilol [Coreg] 3.125 mg PO BID #60 tablet 06/16/15 [Rx] Furosemide [Lasix] 80 mg PO DAILY #30 tablet 06/16/15 [Rx] Diltiazem HCl [Cardizem Cd] 240 mg PO DAILY #0 08/25/15 [Rx] Valsartan 160 mg PO DAILY #0 12/30/15 [Rx] ALPRAZolam [Xanax] 0.5 mg PO BEDTIME PRN 05/10/16 [History] Aspirin 81 mg PO DAILY 11/05/16 [History] Allopurinol [Zyloprim] 100 mg PO DAILY 04/21/17 [History] Gabapentin [Neurontin] 100 mg PO TID 05/14/17 [History] buPROPion HCl [Wellbutrin Xl] 300 mg PO DAILY 05/14/17 [History] Sertraline [Zoloft] 50 mg PO BEDTIME #30 tablet 06/28/17 [Rx] Potassium Chloride [Klor-Con 10] 10 meq PO DAILY 07/21/17 [History] Insulin Aspart [NovoLOG] 6 units SUBCUT WITHBREAKFAST 07/25/17 [History] Metoclopramide HCl 5 mg PO Q8H PRN 07/25/17 [History] Ondansetron [Ondansetron ODT] 8 mg PO Q8H PRN 07/25/17 [History] traMADol HCl [Tramadol HCl] 50 mg PO Q6H PRN 07/25/17 [History] Insulin Aspart [NovoLOG] 8 unit SQ WITHLUNCH 10/31/17 [History] Insulin Aspart [NovoLOG] 10 unit SQ WITHDINNER 10/31/17 [History] Insulin Detemir [Levemir Flextouch] 25 unit SQ DAILY 10/31/17 [History] Omeprazole 20 mg PO DAILY 10/31/17 [History] Polyethylene Glycol 3350 [MiraLAX] 17 gm PO DAILY 10/31/17 [History] Acetaminophen [Tylenol] 650 mg PO Q4H PRN tablet 11/02/17 [Rx] Insulin Detemir [Levemir] 20 unit SUBCUT DAILY pen 11/02/17 [Rx] - Discharge Summary/Plan Comment DC Time >30 min.: No Discharge Summary/Plan Comment: Will discharge at this time as pt is feeling better. No nausea. Tolerated diet well. - Patient Data Vitals - Most Recent: Last Vital Signs Temp 97.0 F 11/02/17 05:00 Pulse 64 11/02/17 05:00 Resp 16 11/02/17 05:00 BP 124/47 L 11/02/17 05:00 Pulse Ox 96 11/02/17 05:00 Weight - Most Recent: 205 lb 3.2 oz I&O - Last 24 hours: Intake & Output 11/01/17 11/02/17 11/02/17 22:59 06:59 14:59 Intake Total 520 150 Output Total 300 Balance 220 150 Lab Results - Last 24 hrs: Laboratory Results - last 24 hr 11/01/17 11/01/17 11/01/17 Range/Units 11:45 17:13 20:35 WBC (5.0-10.0) 10^3/uL RBC (4.00-5.50) 10^6/uL Hgb (12.0-16.0) g/dL Hct (37.0-47.0) % MCV (82.0-94.0) fL MCH (27.0-32.0) pg MCHC (33.0-38.0) g/dL RDW Coeff of Taniya (11.0-15.0) % Plt Count (150-400) 10^3/uL Neut % (Auto) (35-85) % Lymph % (Auto) (10-55) % [place] % (Auto) (0-16) % Eos % (Auto) (0-5) % Baso % (Auto) (0-3) % Neut # (Auto) (1.80-7.00) 10^3/uL Lymph # (Auto) (1.00-4.80) 10^3/uL [place] # (Auto) (0.00-0.80) 10^3/uL Eos # (Auto) (0.00-0.45) 10^3/uL Baso # (Auto) 10^3/uL Sodium (136-145) mEq/L Potassium (3.5-5.0) mEq/L Chloride (98-106) mEq/L Carbon Dioxide (21-32) mmol/L BUN (7-18) mg/dL Creatinine (0.6-1.0) mg/dL Est Cr Clr Drug Dosing mL/min Estimated GFR (MDRD) (>=60) mL/min Glucose (75-99) mg/dL POC Glucose 145 H 189 H 202 H (75-105) mg/dl Calcium (8.4-10.1) mg/dL C-Reactive Protein (0.2-0.8) mg/dL 11/02/17 11/02/17 11/02/17 Range/Units 06:55 06:55 07:52 WBC 7.5 (5.0-10.0) 10^3/uL RBC 3.39 L (4.00-5.50) 10^6/uL Hgb 10.0 L (12.0-16.0) g/dL Hct 32.0 L (37.0-47.0) % MCV 94.4 H (82.0-94.0) fL MCH 29.5 (27.0-32.0) pg MCHC 31.3 L (33.0-38.0) g/dL RDW Coeff of Taniya 15.0 (11.0-15.0) % Plt Count 209 (150-400) 10^3/uL Neut % (Auto) 42.9 (35-85) % Lymph % (Auto) 40.7 (10-55) % [place] % (Auto) 6.9 (0-16) % Eos % (Auto) 9.4 H (0-5) % Baso % (Auto) 0.1 (0-3) % Neut # (Auto) 3.22 (1.80-7.00) 10^3/uL Lymph # (Auto) 3.06 (1.00-4.80) 10^3/uL [place] # (Auto) 0.52 (0.00-0.80) 10^3/uL Eos # (Auto) 0.71 H (0.00-0.45) 10^3/uL Baso # (Auto) 0.01 10^3/uL Sodium 139 (136-145) mEq/L Potassium 4.2 (3.5-5.0) mEq/L Chloride 107 H (98-106) mEq/L Carbon Dioxide 31 (21-32) mmol/L BUN 16 (7-18) mg/dL Creatinine 1.3 H (0.6-1.0) mg/dL Est Cr Clr Drug Dosing 40.04 mL/min Estimated GFR (MDRD) 40 L (>=60) mL/min Glucose 88 D (75-99) mg/dL POC Glucose 78 (75-105) mg/dl Calcium 8.4 (8.4-10.1) mg/dL C-Reactive Protein 0.6 (0.2-0.8) mg/dL Med Orders - Current: Current Medications Acetaminophen (Tylenol) 650 mg PO Q4H PRN PRN Reason: Pain (Mild 1-3)/fever Last Admin: 11/01/17 03:55 Dose: 650 mg Aspirin (Aspirin) 81 mg PO DAILY [facility] Last Admin: 11/02/17 08:12 Dose: 81 mg Enoxaparin Sodium (Lovenox) 40 mg SUBCUT Q24H [facility] Last Admin: 11/02/17 08:12 Dose: 40 mg Insulin Aspart (Novolog) 0 unit SUBCUT WITHMEALSANDBED [facility]; Protocol Last Admin: 11/02/17 08:16 Dose: Not Given Insulin Detemir (Levemir) 20 unit SUBCUT DAILY [facility] Last Admin: 11/02/17 08:15 Dose: Not Given Allopurinol 100 Mg (Tab) 1 each PO DAILY [facility] Last Admin: 11/02/17 08:13 Dose: 1 each Bupropion Hcl [ Wellbutrin Xl] 300 Mg 300 mg PO DAILY [facility] Last Admin: 11/02/17 08:13 Dose: 300 mg Carvedilol 3.125 Mg (Tab) 3.125 each PO BID [facility] Last Admin: 11/02/17 08:13 Dose: 3.125 each Diltiazem Hcl [ (Cardizem Cd] 240 Mg) 240 mg PO DAILY [facility] Last Admin: 11/02/17 08:13 Dose: 240 mg Gabapentin 100 Mg (Cap) 100 each PO TID [facility] Last Admin: 11/02/17 08:13 Dose: 100 each Pantoprazole 40 Mg (Tab.Cr) 1 each PO DAILY [facility] Last Admin: 11/02/17 08:13 Dose: 1 each Potassium Chloride (10 Meq Tab.Er) 1 each PO DAILY [facility] Last Admin: 11/02/17 08:13 Dose: 1 each Losartan 100 Mg Tab 100 mg PO DAILY [facility] Last Admin: 11/02/17 08:13 Dose: 100 mg Ondansetron HCl (Zofran Odt) 8 mg PO Q6H PRN PRN Reason: nausea, able to take PO Last Admin: 11/01/17 17:23 Dose: 8 mg Ondansetron HCl (Zofran) 8 mg IV Q6H PRN PRN Reason: Nausea/Vomiting Polyethylene Glycol (Miralax) 17 gm PO DAILY [facility] Last Admin: 11/02/17 08:12 Dose: 17 gm Sodium Chloride (Saline Flush) 10 ml FLUSH ASDIRECTED PRN PRN Reason: Keep Vein Open Temazepam (Restoril) 15 mg PO BEDTIME PRN PRN Reason: Sleep Discontinued Medications Enoxaparin Sodium (Lovenox) 40 mg SUBCUT Q24H [facility] Last Admin: 11/01/17 02:05 Dose: Not Given Sodium Chloride (Normal Saline) 1,000 mls @ 75 mls/hr IV ASDIRECTED [facility] Last Admin: 11/01/17 07:23 Dose: 75 mls/hr Insulin Detemir (Levemir) 25 unit SUBCUT DAILY [facility]
[2017-11-02 09:30] VITALS: BP 154/66
== END 2017-11-02 11:25 | disposition home or self-care (01) ==
LOC: UNDOADMOB 15:02 → CC.MS 15:02
PROVIDERS: ADMIT Family Medicine; ATTEND Family Medicine
DX: R11.0 Nausea (principal); R53.1 Weakness; E86.0 Dehydration; R63.4 Abnormal weight loss; I12.9 Hypertensive chronic kidney disease with stage 1 through stage 4 chronic kidney disease, or unspecified chronic kidney disease; E11.22 Type 2 diabetes mellitus with diabetic chronic kidney disease; N18.9 Chronic kidney disease, unspecified; F32.9 Major depressive disorder, single episode, unspecified; Z68.30 Body mass index [BMI] 30.0-30.9, adult; Z79.4 Long term (current) use of insulin; Z79.899 Other long term (current) drug therapy; Z88.8 Allergy status to other drugs, medicaments and biological substances; Z91.048 Other nonmedicinal substance allergy status
CPT/HCPCS: 36415; 74019; 80048; 80053; 81001; 82962; 85025; 86140; 96360; 96361; 96372; A9270-GY; G0378; J1650; J1815-GY; J7030

== ENCOUNTER 2017-11-17 11:08 | Inpatient (IN) | payer MEDICARE, OTHER ==
[2017-11-17] MEDS ORDERED: traMADol 50 MG Tab PO PRN (11:35)
[2017-11-17] MEDS ORDERED: guaiFENesin 200 MG Tab PO PRN (11:35)
[2017-11-17] MEDS ORDERED: Sodium Chloride 0.9% 10 ML Syringe FLUSH PRN ×2 (11:35)
[2017-11-17] MEDS: Insulin Aspart 100 Units/ML 3 ML Pen SUBCUT SCH ×2 (12:45→17:27)
[2017-11-17] MEDS: Gabapentin 100 MG Cap PO SCH ×2 (13:37→19:46)
[2017-11-17] MEDS: Furosemide 40 MG Tab PO SCH (16:19)
[2017-11-17] MEDS: Carvedilol 3.125 MG Tab PO SCH (19:45)
[2017-11-17] MEDS: Docusate Sodium 100 MG Cap PO SCH ×2 (19:45→19:55)
[2017-11-17] MEDS: Sertraline 25 MG Tab PO SCH (19:46)
[2017-11-17] MEDS: Enoxaparin 40 MG/0.4 ML Syringe SUBCUT SCH (19:46)
[2017-11-17] MEDS: Insulin Detemir 100 Units/ML 3 ML Pen SUBCUT SCH (19:47)
[2017-11-17] MEDS: Temazepam 15 MG Cap PO PRN (21:49)
[2017-11-18] MEDS: Pantoprazole 40 MG Tab.CR PO SCH (06:51)
[2017-11-18] MEDS: cefTRIAXone 1 GM Vial IVPUSH SCH (07:40)
[2017-11-18] MEDS: Allopurinol 100 MG Tab PO SCH (07:52)
[2017-11-18] MEDS: Gabapentin 100 MG Cap PO SCH ×3 (07:52→19:39)
[2017-11-18] MEDS: Polyethylene Glycol 3350 Powder 17 GM Packet PO SCH (07:52)
[2017-11-18] MEDS: Carvedilol 3.125 MG Tab PO SCH ×2 (07:53→19:40)
[2017-11-18] MEDS: Losartan 100 MG Tab PO SCH (07:53)
[2017-11-18] MEDS: Diltiazem 120 MG Cap.CD PO SCH (07:53)
[2017-11-18] MEDS: buPROPion 150 MG Tab.ER PO SCH (07:54)
[2017-11-18] MEDS: Insulin Aspart 100 Units/ML 3 ML Pen SUBCUT SCH ×3 (07:54→17:33)
[2017-11-18] MEDS: Docusate Sodium 100 MG Cap PO SCH ×2 (07:55→19:42)
[2017-11-18] MEDS: Furosemide 40 MG Tab PO SCH ×2 (07:57→15:52)
[2017-11-18] MEDS: Azithromycin 500 MG in Sodium Chloride 0.9% 250 ML IV SCH (08:37)
[2017-11-18] MEDS: Sertraline 25 MG Tab PO SCH (19:40)
[2017-11-18] MEDS: Insulin Detemir 100 Units/ML 3 ML Pen SUBCUT SCH (19:41)
[2017-11-18] MEDS: Enoxaparin 40 MG/0.4 ML Syringe SUBCUT SCH (19:41)
[2017-11-18] MEDS: Temazepam 15 MG Cap PO PRN (22:17)
[2017-11-18] MEDS: ALPRAZolam 0.25 MG Tab PO PRN (22:18)
[2017-11-19] MEDS: Pantoprazole 40 MG Tab.CR PO SCH (07:20)
[2017-11-19] MEDS: Azithromycin 500 MG in Sodium Chloride 0.9% 250 ML IV SCH (07:46)
[2017-11-19] MEDS: buPROPion 150 MG Tab.ER PO SCH (07:46)
[2017-11-19] MEDS: Diltiazem 120 MG Cap.CD PO SCH (07:46)
[2017-11-19] MEDS: cefTRIAXone 1 GM Vial IVPUSH SCH (07:46)
[2017-11-19] MEDS: Losartan 100 MG Tab PO SCH (07:47)
[2017-11-19] MEDS: Allopurinol 100 MG Tab PO SCH (07:47)
[2017-11-19] MEDS: Docusate Sodium 100 MG Cap PO SCH ×2 (07:47→20:24)
[2017-11-19] MEDS: Polyethylene Glycol 3350 Powder 17 GM Packet PO SCH (07:47)
[2017-11-19] MEDS: Gabapentin 100 MG Cap PO SCH ×3 (07:47→20:26)
[2017-11-19] MEDS: Carvedilol 3.125 MG Tab PO SCH ×2 (07:47→20:26)
[2017-11-19] MEDS: Furosemide 40 MG Tab PO SCH ×2 (07:52→17:14)
[2017-11-19] MEDS: Insulin Aspart 100 Units/ML 3 ML Pen SUBCUT SCH ×3 (07:54→17:15)
[2017-11-19] MEDS: Enoxaparin 40 MG/0.4 ML Syringe SUBCUT SCH (20:26)
[2017-11-19] MEDS: Sertraline 25 MG Tab PO SCH (20:26)
[2017-11-19] MEDS: Insulin Detemir 100 Units/ML 3 ML Pen SUBCUT SCH (20:27)
[2017-11-19] MEDS: Temazepam 15 MG Cap PO PRN (21:46)
[2017-11-20] MEDS: cefTRIAXone 1 GM Vial IVPUSH SCH (07:22)
[2017-11-20] MEDS: Diltiazem 120 MG Cap.CD PO SCH (07:24)
[2017-11-20] MEDS: Carvedilol 3.125 MG Tab PO SCH ×2 (07:25→19:46)
[2017-11-20] MEDS: buPROPion 150 MG Tab.ER PO SCH (07:26)
[2017-11-20] MEDS: Losartan 100 MG Tab PO SCH (07:26)
[2017-11-20] MEDS: Allopurinol 100 MG Tab PO SCH (07:26)
[2017-11-20] MEDS: Gabapentin 100 MG Cap PO SCH ×3 (07:26→19:46)
[2017-11-20] MEDS: Pantoprazole 40 MG Tab.CR PO SCH (07:26)
[2017-11-20] MEDS: Azithromycin 500 MG in Sodium Chloride 0.9% 250 ML IV SCH (07:27)
[2017-11-20] MEDS: Insulin Aspart 100 Units/ML 3 ML Pen SUBCUT SCH ×3 (07:27→17:21)
[2017-11-20] MEDS: Docusate Sodium 100 MG Cap PO SCH ×2 (07:27→19:46)
[2017-11-20] MEDS: Polyethylene Glycol 3350 Powder 17 GM Packet PO SCH (07:27)
[2017-11-20] MEDS: Furosemide 40 MG Tab PO SCH ×2 (07:35→17:24)
[2017-11-20] MEDS: Ondansetron 4 MG/2 ML SDV IV PRN (09:12)
[2017-11-20] MEDS: Acetaminophen 325 MG Tab PO PRN (11:57)
[2017-11-20] MEDS: Sertraline 25 MG Tab PO SCH (19:45)
[2017-11-20] MEDS: Insulin Detemir 100 Units/ML 3 ML Pen SUBCUT SCH (19:47)
[2017-11-20] MEDS: Enoxaparin 40 MG/0.4 ML Syringe SUBCUT SCH (19:47)
[2017-11-20] MEDS: Temazepam 15 MG Cap PO PRN (22:26)
[2017-11-21] MEDS: Pantoprazole 40 MG Tab.CR PO SCH (06:09)
[2017-11-21] MEDS: cefTRIAXone 1 GM Vial IVPUSH SCH (07:09)
[2017-11-21] MEDS: buPROPion 150 MG Tab.ER PO SCH (07:10)
[2017-11-21] MEDS: Polyethylene Glycol 3350 Powder 17 GM Packet PO SCH (07:10)
[2017-11-21] MEDS: Diltiazem 120 MG Cap.CD PO SCH (07:10)
[2017-11-21] MEDS: Carvedilol 3.125 MG Tab PO SCH ×2 (07:11→19:27)
[2017-11-21] MEDS: Losartan 100 MG Tab PO SCH (07:11)
[2017-11-21] MEDS: Allopurinol 100 MG Tab PO SCH (07:11)
[2017-11-21] MEDS: Azithromycin 500 MG in Sodium Chloride 0.9% 250 ML IV SCH (07:12)
[2017-11-21] MEDS: Gabapentin 100 MG Cap PO SCH ×3 (07:12→19:27)
[2017-11-21] MEDS: Insulin Aspart 100 Units/ML 3 ML Pen SUBCUT SCH ×3 (07:44→17:19)
[2017-11-21] MEDS: Furosemide 40 MG Tab PO SCH ×3 (07:44→15:46)
[2017-11-21] MEDS: Docusate Sodium 100 MG Cap PO SCH ×2 (07:45→19:27)
[2017-11-21] MEDS: Acetaminophen 325 MG Tab PO PRN ×2 (07:50→11:51)
[2017-11-21] MEDS: Ondansetron 4 MG/2 ML SDV IV PRN (07:51)
[2017-11-21] MEDS: Enoxaparin 40 MG/0.4 ML Syringe SUBCUT SCH (19:26)
[2017-11-21] MEDS: Sertraline 25 MG Tab PO SCH (19:27)
[2017-11-21] MEDS: Insulin Detemir 100 Units/ML 3 ML Pen SUBCUT SCH (19:28)
[2017-11-21] MEDS: Temazepam 15 MG Cap PO PRN (21:57)
[2017-11-22] MEDS: Pantoprazole 40 MG Tab.CR PO SCH (06:01)
[2017-11-22] MEDS: Furosemide 40 MG Tab PO SCH ×2 (07:25→16:05)
[2017-11-22] MEDS: Allopurinol 100 MG Tab PO SCH (07:25)
[2017-11-22] MEDS: Gabapentin 100 MG Cap PO SCH ×3 (07:25→19:06)
[2017-11-22] MEDS: Losartan 100 MG Tab PO SCH (07:25)
[2017-11-22] MEDS: Carvedilol 3.125 MG Tab PO SCH ×2 (07:25→19:06)
[2017-11-22] MEDS: buPROPion 150 MG Tab.ER PO SCH (07:25)
[2017-11-22] MEDS: cefTRIAXone 1 GM Vial IVPUSH SCH (07:26)
[2017-11-22] MEDS: Docusate Sodium 100 MG Cap PO SCH ×2 (07:26→19:07)
[2017-11-22] MEDS: Polyethylene Glycol 3350 Powder 17 GM Packet PO SCH (07:26)
[2017-11-22] MEDS: Azithromycin 500 MG in Sodium Chloride 0.9% 250 ML IV SCH (07:26)
[2017-11-22] MEDS: Diltiazem 120 MG Cap.CD PO SCH (07:26)
[2017-11-22] MEDS: Insulin Aspart 100 Units/ML 3 ML Pen SUBCUT SCH ×3 (07:30→17:09)
[2017-11-22] MEDS: Sertraline 25 MG Tab PO SCH (19:06)
[2017-11-22] MEDS: Enoxaparin 40 MG/0.4 ML Syringe SUBCUT SCH (19:07)
[2017-11-22] MEDS: Insulin Detemir 100 Units/ML 3 ML Pen SUBCUT SCH (19:09)
[2017-11-22] MEDS: Temazepam 15 MG Cap PO PRN (22:04)
[2017-11-23] MEDS: Pantoprazole 40 MG Tab.CR PO SCH (06:02)
[2017-11-23] MEDS: Diltiazem 120 MG Cap.CD PO SCH (07:52)
[2017-11-23] MEDS: Carvedilol 3.125 MG Tab PO SCH ×2 (07:54→19:31)
[2017-11-23] MEDS: Losartan 100 MG Tab PO SCH (07:54)
[2017-11-23] MEDS: buPROPion 150 MG Tab.ER PO SCH (07:54)
[2017-11-23] MEDS: Gabapentin 100 MG Cap PO SCH ×3 (07:55→19:31)
[2017-11-23] MEDS: Polyethylene Glycol 3350 Powder 17 GM Packet PO SCH (07:55)
[2017-11-23] MEDS: Allopurinol 100 MG Tab PO SCH (07:55)
[2017-11-23] MEDS: cefTRIAXone 1 GM Vial IVPUSH SCH (07:55)
[2017-11-23] MEDS: Azithromycin 500 MG in Sodium Chloride 0.9% 250 ML IV SCH (08:02)
[2017-11-23] MEDS: Docusate Sodium 100 MG Cap PO SCH ×2 (08:11→19:39)
[2017-11-23] MEDS: Insulin Aspart 100 Units/ML 3 ML Pen SUBCUT SCH ×3 (08:12→17:03)
[2017-11-23] MEDS: Furosemide 40 MG Tab PO SCH ×2 (08:13→16:22)
[2017-11-23] MEDS: Sertraline 25 MG Tab PO SCH (19:31)
[2017-11-23] MEDS: Insulin Detemir 100 Units/ML 3 ML Pen SUBCUT SCH (19:35)
[2017-11-23] MEDS: Enoxaparin 40 MG/0.4 ML Syringe SUBCUT SCH (19:36)
[2017-11-23] MEDS: Temazepam 15 MG Cap PO PRN (22:44)
[2017-11-24] MEDS: Pantoprazole 40 MG Tab.CR PO SCH (06:19)
[2017-11-24] MEDS: cefTRIAXone 1 GM Vial IVPUSH SCH (07:48)
[2017-11-24] MEDS: Diltiazem 120 MG Cap.CD PO SCH (07:55)
[2017-11-24] MEDS: Azithromycin 500 MG in Sodium Chloride 0.9% 250 ML IV SCH (07:55)
[2017-11-24] MEDS: Polyethylene Glycol 3350 Powder 17 GM Packet PO SCH (07:55)
[2017-11-24] MEDS: Carvedilol 3.125 MG Tab PO SCH ×2 (07:56→19:44)
[2017-11-24] MEDS: buPROPion 150 MG Tab.ER PO SCH (07:56)
[2017-11-24] MEDS: Allopurinol 100 MG Tab PO SCH (07:56)
[2017-11-24] MEDS: Gabapentin 100 MG Cap PO SCH ×3 (07:56→19:45)
[2017-11-24] MEDS: Furosemide 40 MG Tab PO SCH ×2 (07:57→15:58)
[2017-11-24] MEDS: Losartan 100 MG Tab PO SCH (07:57)
[2017-11-24] MEDS: Insulin Aspart 100 Units/ML 3 ML Pen SUBCUT SCH ×3 (07:59→17:17)
[2017-11-24] MEDS: Docusate Sodium 100 MG Cap PO SCH ×2 (07:59→19:44)
[2017-11-24] MEDS: Enoxaparin 40 MG/0.4 ML Syringe SUBCUT SCH (19:44)
[2017-11-24] MEDS: Sertraline 25 MG Tab PO SCH (19:45)
[2017-11-24] MEDS: Insulin Detemir 100 Units/ML 3 ML Pen SUBCUT SCH (21:11)
[2017-11-24] MEDS: Temazepam 15 MG Cap PO PRN (22:11)
[2017-11-25] MEDS: Pantoprazole 40 MG Tab.CR PO SCH (07:10)
[2017-11-25] MEDS: Gabapentin 100 MG Cap PO SCH ×3 (08:48→20:06)
[2017-11-25] MEDS: Carvedilol 3.125 MG Tab PO SCH ×2 (08:48→20:06)
[2017-11-25] MEDS: Allopurinol 100 MG Tab PO SCH (08:48)
[2017-11-25] MEDS: buPROPion 150 MG Tab.ER PO SCH (08:48)
[2017-11-25] MEDS: cefTRIAXone 1 GM Vial IVPUSH SCH (08:48)
[2017-11-25] MEDS: Losartan 100 MG Tab PO SCH (08:49)
[2017-11-25] MEDS: Polyethylene Glycol 3350 Powder 17 GM Packet PO SCH (08:49)
[2017-11-25] MEDS: Furosemide 40 MG Tab PO SCH ×2 (08:55→15:43)
[2017-11-25] MEDS: Azithromycin 500 MG in Sodium Chloride 0.9% 250 ML IV SCH (08:55)
[2017-11-25] MEDS: Diltiazem 120 MG Cap.CD PO SCH (08:58)
[2017-11-25] MEDS: Docusate Sodium 100 MG Cap PO SCH ×2 (08:59→20:11)
[2017-11-25] MEDS: Insulin Aspart 100 Units/ML 3 ML Pen SUBCUT SCH ×3 (08:59→17:17)
[2017-11-25] MEDS: Ondansetron 4 MG/2 ML SDV IV PRN (11:43)
[2017-11-25] MEDS: Enoxaparin 40 MG/0.4 ML Syringe SUBCUT SCH (20:07)
[2017-11-25] MEDS: Sertraline 25 MG Tab PO SCH (20:07)
[2017-11-25] MEDS: Insulin Detemir 100 Units/ML 3 ML Pen SUBCUT SCH (20:08)
[2017-11-25] MEDS: Temazepam 15 MG Cap PO PRN (21:53)
[2017-11-25] MEDS: ALPRAZolam 0.25 MG Tab PO PRN (21:53)
[2017-11-26] MEDS: Pantoprazole 40 MG Tab.CR PO SCH (07:25)
[2017-11-26] MEDS: cefTRIAXone 1 GM Vial IVPUSH SCH (07:28)
[2017-11-26] MEDS: Polyethylene Glycol 3350 Powder 17 GM Packet PO SCH (07:39)
[2017-11-26] MEDS: buPROPion 150 MG Tab.ER PO SCH (07:39)
[2017-11-26] MEDS: Allopurinol 100 MG Tab PO SCH (07:39)
[2017-11-26] MEDS: Gabapentin 100 MG Cap PO SCH (07:39)
[2017-11-26] MEDS: Azithromycin 500 MG in Sodium Chloride 0.9% 250 ML IV SCH (07:40)
[2017-11-26] MEDS: Carvedilol 3.125 MG Tab PO SCH (07:47)
[2017-11-26] MEDS: Losartan 100 MG Tab PO SCH (07:47)
[2017-11-26] MEDS: Diltiazem 120 MG Cap.CD PO SCH (07:47)
[2017-11-26] MEDS: Docusate Sodium 100 MG Cap PO SCH (07:48)
[2017-11-26 07:49] VITALS: BP 136/79
[2017-11-26] MEDS: Insulin Aspart 100 Units/ML 3 ML Pen SUBCUT SCH (07:49)
[2017-11-26] MEDS: Furosemide 40 MG Tab PO SCH (08:24)
--- NOTE | 2017-11-27 20:11 | PCM.DCSUM1 ---
Discharge Summary - Hospital Course Free Text/Narrative:: Patient initially admitted acute inpatient for CHF exacerbation. Seen Felton Tejada in the clinic with increased shortness of breath and orthopnea. She was weak. Had started using her DuoNebs and Pulmicort nebs to help her breathing but only noted minimal improvement. Patient had recently underwent a reversal of her colostomy. While hospitalized there, she did have issues with CHF as well. Has been taking her lasix as ordered. Initial labs indicated a ProBNP of 9361. D-dimer was elevated as well, CTA done of chest which ruled out a PE. Did show bilateral pleural effusions and/or possible infiltrate. Admitted and started on IV Lasix. During her acute stay, was started on IV antibiotics due to increased cough and history of pneumonia. Blood sugars were variable, insulin required adjusting. Diagnosis: Stroke: No - Discharge Data Discharge Date: 11/26/17 Discharge Disposition: Home, Self-Care 01 Condition: Good - Patient Summary/Data Complications: none Consults: Consultations 11/17/17 11:35 Consult to Physical Therapy [PT Evaluation and Treatment] [CONS] Routine Hospital Course: Patient has done well during swing bed stay. Strength has improved, now able to manage stairs with physical therapy. Shortness of breath has improved, cough has improved. Lung sounds clear. Vital signs stable. Blood sugars have stabilized. Discharge home with family. - Patient Instructions Diet: Usual Diet as Tolerated Activity: As Tolerated - Discharge Plan *PRESCRIPTION DRUG MONITORING PROGRAM REVIEWED*: No *COPY OF PRESCRIPTION DRUG MONITORING REPORT IN PATIENT CORNEILO: No Prescriptions/Med Rec: Furosemide [Lasix] 40 mg PO 0800,1600 #60 tablet Insulin Detemir [Levemir] 8 unit SUBCUT BEDTIME #1 pen Temazepam [Restoril] 15 mg PO BEDTIME PRN #30 cap PRN Reason: Sleep Home Medications: Home Meds Pantoprazole [ProTONIX] 40 mg PO DAILY 45 Days tab.cr 11/26/13 [Rx] Carvedilol [Coreg] 3.125 mg PO BID #60 tablet 06/16/15 [Rx] Diltiazem HCl [Cardizem Cd] 240 mg PO DAILY #0 08/25/15 [Rx] Valsartan 160 mg PO DAILY #0 12/30/15 [Rx] ALPRAZolam [Xanax] 0.5 mg PO BEDTIME PRN 05/10/16 [History] Aspirin 81 mg PO DAILY 11/05/16 [History] Allopurinol [Zyloprim] 100 mg PO DAILY 04/21/17 [History] Gabapentin [Neurontin] 100 mg PO TID 05/14/17 [History] buPROPion HCl [Wellbutrin Xl] 300 mg PO DAILY 05/14/17 [History] Sertraline [Zoloft] 50 mg PO BEDTIME #30 tablet 06/28/17 [Rx] Potassium Chloride [Klor-Con 10] 10 meq PO DAILY 07/21/17 [History] Metoclopramide HCl 5 mg PO Q8H PRN 07/25/17 [History] Ondansetron [Ondansetron ODT] 8 mg PO Q8H PRN 07/25/17 [History] traMADol HCl [Tramadol HCl] 50 mg PO Q6H PRN 07/25/17 [History] Omeprazole 20 mg PO DAILY 10/31/17 [History] Polyethylene Glycol 3350 [MiraLAX] 17 gm PO DAILY 10/31/17 [History] Acetaminophen [Tylenol] 650 mg PO Q4H PRN tablet 11/02/17 [Rx] Insulin Aspart [Novolog Flexpen] See Protocol SQ TIDMEALS 11/13/17 [History] Furosemide [Lasix] 40 mg PO 0800,1600 #60 tablet 11/26/17 [Rx] Insulin Detemir [Levemir] 8 unit SUBCUT BEDTIME #1 pen 11/26/17 [Rx] Temazepam [Restoril] 15 mg PO BEDTIME PRN #30 cap 11/26/17 [Rx] Referrals: Kelvin Oliveira MD [Primary Care Provider] - (Follow up with Dr. Oliveira in 10 days ) - Discharge Summary/Plan Comment DC Time >30 min.: No Discharge Summary/Plan Comment: discharge home with family continue usual meds - General Info Date of Service: 11/26/17 Admission Dx/Problem (Free Text: Acute Exacerbation of CHF Functional Status: Reports: Pain Controlled, Tolerating Diet, Ambulating - Review of Systems General: Denies: Fever, Weakness, Fatigue HEENT: Reports: No Symptoms Pulmonary: Reports: Shortness of Breath, Cough Cardiovascular: Reports: Edema. Denies: Chest Pain, Lightheadedness Gastrointestinal: Denies: Abdominal Pain, Nausea, Vomiting Genitourinary: Reports: No Symptoms Musculoskeletal: Reports: No Symptoms Skin: Reports: No Symptoms Neurological: Reports: Weakness - Patient Data Vitals - Most Recent: Last Vital Signs Temp 96.4 F 11/26/17 07:54 Pulse 79 11/26/17 07:54 Resp 18 11/26/17 07:54 BP 136/79 11/26/17 07:54 Pulse Ox 96 11/26/17 07:54 Weight - Most Recent: 202 lb 4.8 oz Med Orders - Current: Current Medications Discontinued Medications Acetaminophen (Tylenol) 650 mg PO Q4H PRN PRN Reason: Pain (Mild 1-3)/fever Last Admin: 11/21/17 11:51 Dose: 650 mg Allopurinol (Zyloprim) 100 mg PO DAILY [facility] Last Admin: 11/26/17 07:39 Dose: 100 mg Alprazolam (Xanax) 0.5 mg PO BEDTIME PRN PRN Reason: Insomnia Last Admin: 11/25/17 21:53 Dose: 0.5 mg Bupropion HCl (Wellbutrin Xl) 300 mg PO DAILY [facility] Last Admin: 11/26/17 07:39 Dose: 300 mg Carvedilol (Coreg) 3.125 mg PO BID [facility] Last Admin: 11/26/17 07:47 Dose: 3.125 mg Ceftriaxone Sodium (Rocephin) 1 gm IVPUSH DAILY@0800 [facility] Last Admin: 11/26/17 07:28 Dose: 1 gm Diltiazem HCl (Cardizem Cd) 240 mg PO DAILY [facility] Last Admin: 11/26/17 07:47 Dose: 240 mg Docusate Sodium (Colace) 100 mg PO BID [facility] Last Admin: 11/26/17 07:48 Dose: Not Given Enoxaparin Sodium (Lovenox) 40 mg SUBCUT Q24H [facility] Last Admin: 11/25/17 20:07 Dose: 40 mg Furosemide (Lasix) 40 mg PO 0800,1600 [facility] Last Admin: 11/26/17 08:24 Dose: 40 mg Gabapentin (Neurontin) 100 mg PO TID [facility] Last Admin: 11/26/17 07:39 Dose: 100 mg Guaifenesin (Organ-I Nr) 200 - 400 mg PO Q4H PRN PRN Reason: Cough Last Admin: 11/17/17 16:19 Dose: 400 mg Azithromycin 500 mg/ Sodium (Chloride) 250 mls @ 250 mls/hr IV DAILY@0800 [facility] Last Admin: 11/26/17 07:40 Dose: 250 mls/hr Insulin Aspart (Novolog) 0 unit SUBCUT TIDMEALS [facility]; Protocol Last Admin: 11/26/17 07:49 Dose: Not Given Insulin Detemir (Levemir) 8 unit SUBCUT BEDTIME [facility] Last Admin: 11/25/17 20:08 Dose: 8 units Losartan Potassium (Cozaar) 100 mg PO DAILY [facility] Last Admin: 11/26/17 07:47 Dose: 100 mg Ondansetron HCl (Zofran) 4 mg IV Q4H PRN PRN Reason: Nausea/Vomiting Last Admin: 11/25/17 11:43 Dose: 4 mg Pantoprazole Sodium (Protonix) 40 mg PO DAILY@0700 [facility] Last Admin: 11/26/17 07:25 Dose: 40 mg Polyethylene Glycol (Miralax) 17 gm PO DAILY [facility] Last Admin: 11/26/17 07:39 Dose: 17 gm Sertraline HCl (Zoloft) 50 mg PO BEDTIME [facility] Last Admin: 11/25/17 20:07 Dose: 50 mg Sodium Chloride (Saline Flush) 10 ml FLUSH ASDIRECTED PRN PRN Reason: Keep Vein Open Sodium Chloride (Saline Flush) 10 ml FLUSH ASDIRECTED PRN PRN Reason: Keep Vein Open Temazepam (Restoril) 15 mg PO BEDTIME PRN PRN Reason: Sleep Last Admin: 11/25/17 21:53 Dose: 15 mg Tramadol HCl (Ultram) 50 mg PO Q6H PRN PRN Reason: Pain Last Admin: 11/21/17 14:57 Dose: 50 mg - Exam General: Reports: Alert, Oriented HEENT: Reports: Mucous Membr. Moist/[place] Neck: Reports: Supple Lungs: Reports: Clear to Auscultation, Normal Respiratory Effort Cardiovascular: Reports: Irregular Rhythm GI/Abdominal Exam: Normal Bowel Sounds, Soft, Non-Tender Extremities: Normal Inspection, Pedal Edema (1+) Skin: Reports: Warm, Dry Neurological: Reports: No New Focal Deficit
== END 2017-11-26 10:55 | disposition home or self-care (01) | DRG 947 ==
LOC: UNDOADMIN 11:08 → CC.MS 11:08
PROVIDERS: ADMIT Family Medicine; ATTEND Family Medicine
DX: R53.1 Weakness (principal); J18.9 Pneumonia, unspecified organism; I13.0 Hypertensive heart and chronic kidney disease with heart failure and stage 1 through stage 4 chronic kidney disease, or unspecified chronic kidney disease; N18.9 Chronic kidney disease, unspecified; I50.9 Heart failure, unspecified; E11.22 Type 2 diabetes mellitus with diabetic chronic kidney disease; I25.10 Atherosclerotic heart disease of native coronary artery without angina pectoris; M50.30 Other cervical disc degeneration, unspecified cervical region; F32.9 Major depressive disorder, single episode, unspecified; K21.9 Gastro-esophageal reflux disease without esophagitis; M10.9 Gout, unspecified; M48.061 Spinal stenosis, lumbar region without neurogenic claudication; Z88.5 Allergy status to narcotic agent; Z88.8 Allergy status to other drugs, medicaments and biological substances; Z91.048 Other nonmedicinal substance allergy status; Z79.899 Other long term (current) drug therapy; Z79.82 Long term (current) use of aspirin; Z79.4 Long term (current) use of insulin; Z90.49 Acquired absence of other specified parts of digestive tract; Z96.659 Presence of unspecified artificial knee joint; Z96.649 Presence of unspecified artificial hip joint
CPT/HCPCS: 36415; 80048; 82962; 85025; 97110-GP; A9270-GY; J0456; J0696; J1650; J2405; J7050

== ENCOUNTER 2018-06-25 18:30 | Emergency (ER) | payer MEDICARE, OTHER ==
[2018-06-25 18:35] VITALS: BP 138/62
[2018-06-25] MEDS ORDERED: Iopamidol 612 MG/ML 100 ML Bottle IVPUSH ONE (20:01)
--- NOTE | 2018-06-25 21:32 | EDM.PDOC ---
ED HPI GENERAL MEDICAL PROBLEM - General Chief Complaint: General Stated Complaint: "I think I have a hernia" Time Seen by Provider: 06/25/18 18:50 Source of Information: Reports: Patient History Limitations: Reports: No Limitations - History of Present Illness INITIAL COMMENTS - FREE TEXT/NARRATIVE: Lucila is a 73 yo female who presents to the ED via private vehicle with complaints of a hernia. She states she has been cough a lot and last week she felt a bulge in her abdomen after a coughing spell. States it hasn't went away and is concerned as it feels like it is pushing on her diaphragm when she sits up. She is concerned of her abdomen as she has had multiple surgeries with prior ostomy. She hasn't been seen since March 2018 by Kayleigh Hale who treated her for upper respiratory symptoms. Treatments BILL PEDDLER: Reports: Other (see below) Other Treatments BILL PEDDLER: "TRIED TO TAKE TRAMADOL AND IT HELPED SOME" Upper Abdomen Pain Score (Numeric/FACES): 7 - Related Data Allergies Allergy/AdvReac Type Severity Reaction Status Date / Time lisinopril Allergy Rash Verified 06/25/18 18:35 oxycodone [From Percocet] Allergy Itching Verified 06/25/18 18:35 paper tape Allergy Rash Uncoded 06/25/18 18:35 Home Meds: Home Meds Pantoprazole [ProTONIX] 40 mg PO DAILY 45 Days tab.cr 11/26/13 [Rx] Carvedilol [Coreg] 3.125 mg PO BID #60 tablet 06/16/15 [Rx] Aspirin 81 mg PO DAILY 11/05/16 [History] Allopurinol [Zyloprim] 100 mg PO DAILY 04/21/17 [History] Gabapentin [Neurontin] 100 mg PO TID 05/14/17 [History] buPROPion HCl [Wellbutrin Xl] 300 mg PO DAILY 05/14/17 [History] Sertraline [Zoloft] 50 mg PO BEDTIME #30 tablet 06/28/17 [Rx] Potassium Chloride [Klor-Con 10] 10 meq PO DAILY 07/21/17 [History] traMADol HCl [Tramadol HCl] 50 mg PO Q6H PRN 07/25/17 [History] Polyethylene Glycol 3350 [MiraLAX] 17 gm PO DAILY 10/31/17 [History] Furosemide [Lasix] 40 mg PO 0800,1600 #60 tablet 11/26/17 [Rx] Temazepam [Restoril] 15 mg PO BEDTIME PRN #30 cap 11/26/17 [Rx] Rankin 500 mg PO DAILY 06/25/18 [History] Cholecalciferol (Vitamin D3) [Vitamin D3] 2,000 unit PO DAILY 06/25/18 [History] Diltiazem HCl [Cartia Xt] 240 mg PO DAILY 06/25/18 [History] Insulin Aspart [NovoLOG] 15 - 20 units SQ TID 06/25/18 [History] Insulin Detemir [Levemir] 25 unit SUBCUT BEDTIME 06/25/18 [History] Losartan [Cozaar] 100 mg PO DAILY 06/25/18 [History] Lutein 20 mg PO DAILY 06/25/18 [History] Lutein/Zeaxanthin [Lutein-Zeaxanthin 20-1 mg Sfgl] 1 each PO DAILY 06/25/18 [ History] Magnesium Oxide 400 mg PO DAILY 06/25/18 [History] Mv-Mn/Folic Acid/Calcium/Vit K [Women's 50 Plus Daily Formula] 1 each PO DAILY 06/25/18 [History] Ubidecarenone [Co Q-10] 100 mg PO DAILY 06/25/18 [History] Vitamin B Complex [Super B-50 Complex] 1 each PO DAILY 06/25/18 [History] Past Medical History HEENT History: Reports: Sinusitis Cardiovascular History: Reports: CAD, Heart Failure, Hypertension Respiratory History: Reports: Bronchitis, Recurrent Gastrointestinal History: Reports: Other (See Below) Other Gastrointestinal History: perforated sigmoid colon Genitourinary History: Reports: Other (See Below) Other Genitourinary History: hs of surgery on kidney, pt unaware of why Musculoskeletal History: Reports: Osteoarthritis Psychiatric History: Reports: Anxiety, Depression Endocrine/Metabolic History: Reports: Diabetes, Type II Hematologic History: Reports: None - Past Surgical History Cardiovascular Surgical History: Reports: Carotid Stents GI Surgical History: Reports: Appendectomy, Colonoscopy, Colostomy, Hernia, Abdominal, Hernia Repair/Other, Lysis of Adhesions, Polypectomy, Other (See Below) Other GI Surgeries/Procedures: REVISION OF COLOSTOMY Neurological Surgical History: Reports: Other (See Below) Musculoskeletal Surgical History: Reports: Hip Replacement, Knee Replacement Oncologic Surgical History: Reports: None Dermatological Surgical History: Reports: None Social & Family History - Family History Family Medical History: Noncontributory Cardiac: Reports: CAD, Heart Failure, Hypertension Neurological: Reports: Cerebral Aneurysms - Tobacco Use Smoking Status *Q: Never Smoker Second Hand Smoke Exposure: No - Caffeine Use Caffeine Use: Reports: Coffee - Sexual History Sexual History: Reports: None - Living Situation & Occupation Living situation: Reports: , Single, with Significant Other Occupation: Employed ED ROS GENERAL - Review of Systems Review Of Systems: See Below Constitutional: Denies: Fever, Chills HEENT: Reports: No Symptoms Respiratory: Reports: Cough. Denies: Wheezing Cardiovascular: Reports: No Symptoms. Denies: Chest Pain, Palpitations GI/Abdominal: Reports: Distension, Other (hernia mid abdomen) : Reports: No Symptoms Skin: Reports: No Symptoms Neurological: Reports: No Symptoms Psychiatric: Reports: No Symptoms ED EXAM, GENERAL - Physical Exam Exam: See Below Exam Limited By: No Limitations General Appearance: Alert, No Apparent Distress Head: Atraumatic, Normocephalic Neck: Normal Inspection, Supple Respiratory/Chest: No Respiratory Distress, Lungs Clear, Normal Breath Sounds, No Accessory Muscle Use Cardiovascular: Regular Rate, Rhythm, No Murmur GI/Abdominal: Soft, Tender (mild tenderness to hernia), Other (umbilical hernia , reducible) Extremities: Normal Inspection, No Pedal Edema Neurological: Alert, Oriented, Normal Cognition, No Motor/Sensory Deficits Psychiatric: Normal Affect, Normal Mood Skin Exam: Warm, Dry, Intact, Normal Color, No Rash Course - Vital Signs Last Recorded V/S: Last Vital Signs Temp 98 F 06/25/18 18:32 Pulse 79 06/25/18 18:32 Resp 20 06/25/18 18:32 BP 138/62 06/25/18 18:32 Pulse Ox 99 06/25/18 18:32 - Orders/Labs/Meds Orders: Active Orders 24 hr Category Date Time Status Abdomen Pelvis wo Cont [CT] Stat Exams 06/25/18 19:18 Taken Chest wo Cont [CT] Stat Exams 06/25/18 19:18 Taken Labs: Laboratory Tests 06/25/18 06/25/18 Range/Units 19:37 19:37 WBC 14.1 H (5.0-10.0) 10^3/uL RBC 3.52 L (4.00-5.50) 10^6/uL Hgb 10.7 L (12.0-16.0) g/dL Hct 33.3 L (37.0-47.0) % MCV 94.6 H (82.0-94.0) fL MCH 30.4 (27.0-32.0) pg MCHC 32.1 L (33.0-38.0) g/dL RDW Coeff of Taniya 14.1 (11.0-15.0) % Plt Count 337 (150-400) 10^3/uL Neut % (Auto) 56.0 (35-85) % Lymph % (Auto) 28.6 (10-55) % [place] % (Auto) 6.4 (0-16) % Eos % (Auto) 8.9 H (0-5) % Baso % (Auto) 0.1 (0-3) % Neut # (Auto) 7.89 H (1.80-7.00) 10^3/uL Lymph # (Auto) 4.03 (1.00-4.80) 10^3/uL [place] # (Auto) 0.90 H (0.00-0.80) 10^3/uL Eos # (Auto) 1.26 H (0.00-0.45) 10^3/uL Baso # (Auto) 0.02 10^3/uL Sodium 140 (136-145) mEq/L Potassium 4.9 (3.5-5.0) mEq/L Chloride 107 H (98-106) mEq/L Carbon Dioxide 29 (21-32) mmol/L BUN 47 H (7-18) mg/dL Creatinine 1.7 H (0.6-1.0) mg/dL Est Cr Clr Drug Dosing 30.18 mL/min Estimated GFR (MDRD) 30 L (>=60) mL/min Glucose 99 D (75-99) mg/dL Calcium 9.1 (8.4-10.1) mg/dL Total Bilirubin 0.2 (0.0-1.0) mg/dL AST 18 (15-37) U/L ALT 21 (12-78) U/L Alkaline Phosphatase 148 H (46-116) U/L C-Reactive Protein 1.2 H (0.2-0.8) mg/dL Total Protein 7.1 (6.4-8.2) g/dL Albumin 3.1 L (3.4-5.0) g/dL Meds: Medications Discontinued Medications Generic Name Dose Route Start Last Admin Trade Name Jim PRN Reason Stop Dose Admin Iopamidol 100 ml 06/25/18 20:01 Isovue-300 (61%) IVPUSH 06/25/18 20:02 ONETIME ONE Departure - Departure Time of Disposition: 22:48 Disposition: Home, Self-Care 01 Clinical Impression: Ventral hernia without obstruction or gangrene - Discharge Information Referrals: Kelvin Oliveira MD [Primary Care Provider] - Forms: ED Department Discharge Additional Instructions: 1) Schedule appointment with Dr. Oliveira for diabetic exam (as it is due) and recheck hernia. Recommend having referral to general surgery for consultation of fixing ventral hernia. 2) If any increase in pain, unable to reduce hernia or any concerns at all, recommend returning to ED. - Problem List & Annotations (1) Ventral hernia without obstruction or gangrene SNOMED Code(s): 056743089 Code(s): K43.9 - VENTRAL HERNIA WITHOUT OBSTRUCTION OR GANGRENE Status: Acute Current Visit: Yes - My Orders Last 24 Hours: My Active Orders 06/25/18 19:18 Abdomen Pelvis wo Cont [CT] Stat Chest wo Cont [CT] Stat - Assessment/Plan Last 24 Hours: My Active Orders 06/25/18 19:18 Abdomen Pelvis wo Cont [CT] Stat Chest wo Cont [CT] Stat Plan: Lucila did well in ED. Discussed radiology report and read into detail with Lucila and her daughter. Recommend scheduling follow up appointment on Saturday with Dr. Oliveira, primary provider, for recheck hernia and for scheduling consultation with general surgery. CT of the chest didn't show any new findings. Pleural effusion on right was slightly decreased from prior exam. Abdominal CT did show large ventral hernia without obstruction. Will discharge home at this time. Lucila verbalized understanding along with daughter. Discharged in satisfactory condition.
== END 2018-06-25 23:05 | disposition home or self-care (01) ==
LOC: CC.ED 18:30
DX: K43.9 Ventral hernia without obstruction or gangrene (principal); I10 Essential (primary) hypertension; I15.0 Renovascular hypertension; E11.9 Type 2 diabetes mellitus without complications; F32.9 Major depressive disorder, single episode, unspecified; F41.9 Anxiety disorder, unspecified; Z88.8 Allergy status to other drugs, medicaments and biological substances; Z79.899 Other long term (current) drug therapy
CPT/HCPCS: 36415; 71250; 74176; 80053; 85025; 86140; 87804; 99283; 99283-25

== ENCOUNTER 2018-10-17 09:13 | Inpatient (IN) | payer MEDICARE, OTHER ==
[2018-10-17] MEDS ORDERED: Magnesium Hydroxide 400 MG/5 ML Susp 30 ML Cup PO PRN (15:38)
[2018-10-17] MEDS ORDERED: Temazepam 15 MG Cap PO PRN (15:38)
[2018-10-17] MEDS ORDERED: Albuterol/Ipratropium 3.0-0.5 MG/3 ML Neb Soln NEB PRN (15:38)
[2018-10-17] MEDS ORDERED: Acetaminophen/HYDROcodone 325-5 MG Tab PO PRN (15:38)
[2018-10-17] MEDS ORDERED: ALPRAZolam 0.25 MG Tab PO PRN (15:48)
[2018-10-17] MEDS: Furosemide 40 MG Tab PO SCH (16:26)
[2018-10-17] MEDS: Ondansetron 4 MG Tab.DIS PO PRN (16:26)
[2018-10-17] MEDS: Carvedilol 6.25 MG Tab PO SCH (17:19)
[2018-10-17] MEDS: Insulin Lispro 100 Units/ML 3 ML Vial SUBCUT SCH ×2 (17:37→19:49)
[2018-10-17] MEDS: Enoxaparin 30 MG/0.3 ML Syringe SUBCUT SCH (17:42)
[2018-10-17] MEDS: Budesonide 0.5 MG/2 ML Neb Susp NEB SCH (19:50)
[2018-10-17] MEDS: Gabapentin 100 MG Cap PO SCH (19:50)
[2018-10-17] MEDS: Sertraline 25 MG Tab PO SCH (19:50)
[2018-10-17] MEDS: Insulin Glargine,Human Rec. Analog 100 Units/ML 3 ML Pen SUBCUT SCH (19:50)
[2018-10-17] MEDS ORDERED: Insulin Lispro 100 Units/ML 3 ML Vial SUBCUT SCH (20:00)
[2018-10-18] MEDS: Pantoprazole 40 MG Tab.CR PO SCH (07:05)
[2018-10-18] MEDS: Budesonide 0.5 MG/2 ML Neb Susp NEB SCH ×2 (07:40→19:47)
[2018-10-18] MEDS: Polyethylene Glycol 3350 Powder 17 GM Packet PO SCH (07:46)
[2018-10-18] MEDS: Cholecalciferol (Vitamin D3) 25 MCG Tab PO SCH (07:47)
[2018-10-18] MEDS: buPROPion 150 MG Tab.ER PO SCH (07:47)
[2018-10-18] MEDS: Aspirin 81 MG Tab.Chew PO SCH (07:47)
[2018-10-18] MEDS: Furosemide 40 MG Tab PO SCH ×2 (07:48→15:46)
[2018-10-18] MEDS: Potassium Chloride 10 MEQ Tab.ER PO SCH (07:48)
[2018-10-18] MEDS: Allopurinol 100 MG Tab PO SCH (07:48)
[2018-10-18] MEDS: Vitamin B Complex Cap PO SCH (07:48)
[2018-10-18] MEDS: Diltiazem 120 MG Cap.CD PO SCH (07:49)
[2018-10-18] MEDS: Gabapentin 100 MG Cap PO SCH ×3 (07:49→19:47)
[2018-10-18] MEDS: Multivitamin Tab PO SCH (07:49)
[2018-10-18] MEDS: Carvedilol 6.25 MG Tab PO SCH ×2 (07:50→17:37)
[2018-10-18] MEDS: Insulin Lispro 100 Units/ML 3 ML Vial SUBCUT SCH ×4 (07:52→20:48)
[2018-10-18] MEDS ORDERED: Non-Formulary Medication 1 Each (Lutein [Lutein] 20 MG) PO SCH (08:00)
[2018-10-18] MEDS ORDERED: [UNRECOGNIZED DRUG - OTHER] PO SCH (08:00)
[2018-10-18] MEDS ORDERED: Non-Formulary Medication 1 Each (Ubidecarenone [Co Q-10] 100 MG) PO SCH (08:00)
[2018-10-18] MEDS ORDERED: ZEAXANTHIN PO SCH (08:00)
[2018-10-18] MEDS ORDERED: ALFALFA PO SCH (08:00)
[2018-10-18] MEDS ORDERED: LUTEIN PO SCH (08:00)
[2018-10-18] MEDS: Ondansetron 4 MG Tab.DIS PO PRN ×2 (09:20→13:53)
--- NOTE | 2018-10-18 14:16 | PCM.HP ---
H&P History of Present Illness - General Date of Service: 10/17/18 Admit Problem/Dx: Admission Diagnosis/Problem Admission Diagnosis/Problem Hernia repair Source of Information: Patient, Old Records History Limitations: Reports: No Limitations - History of Present Illness Initial Comments - Free Text/Narative: Patient admitted swing bed for strengthening following a ventral hernia repair. Due to her previous colectomy and colostomy reversal as well as previous hernia repair, surgery was quite extensive. Patient reports did have acute kidney injury after the event, were watching her kidney function closely. Did have fluid overload post op. She notes legs were very swollen. Chest xray did show pleural effusion. Lasix given. Reports she is down 17# over the last few days. Patient unsure if effusions better, did not have chest xray prior to discharge. MIGNON drain was pulled earlier this week. Has not had much discharge from the site. Incision "pinches" but tenderness is improving. Was constipated , did have resolution of that yesterday. Will receive PT for strengthening. Monitor wound. Duration of Symptoms: Reports: Day(s): Location: Reports: Abdomen Quality: Reports: Ache, Sharp Severity: Moderate Improves with: Reports: Medication Worsens with: Reports: Movement Context: Reports: Other (surgery) Associated Symptoms: Reports: Cough, Nausea/Vomiting, Weakness. Denies: Fever/ Chills, Shortness of Breath abdomen incision Pain Score (Numeric/FACES): 5 - Related Data Allergies/Adverse Reactions: Allergies Allergy/AdvReac Type Severity Reaction Status Date / Time lisinopril Allergy Rash Verified 10/17/18 12:16 oxycodone [From Percocet] Allergy Itching Verified 10/17/18 12:16 paper tape Allergy Rash Uncoded 06/25/18 18:35 Home Medications: Home Meds Pantoprazole [ProTONIX] 40 mg PO DAILY 45 Days tab.cr 11/26/13 [Rx] Aspirin 81 mg PO DAILY 11/05/16 [History] Allopurinol [Zyloprim] 100 mg PO DAILY 04/21/17 [History] Gabapentin [Neurontin] 100 mg PO TID 05/14/17 [History] buPROPion HCl [Wellbutrin Xl] 300 mg PO DAILY 05/14/17 [History] Sertraline [Zoloft] 50 mg PO BEDTIME #30 tablet 06/28/17 [Rx] Potassium Chloride [Klor-Con 10] 10 meq PO DAILY 07/21/17 [History] Polyethylene Glycol 3350 [MiraLAX] 17 gm PO DAILY 10/31/17 [History] Furosemide [Lasix] 40 mg PO 0800,1600 #60 tablet 11/26/17 [Rx] Temazepam [Restoril] 15 mg PO BEDTIME PRN #30 cap 11/26/17 [Rx] [place] 500 mg PO DAILY 06/25/18 [History] Cholecalciferol (Vitamin D3) [Vitamin D3] 2,000 unit PO DAILY 06/25/18 [History] Diltiazem HCl [Cartia Xt] 240 mg PO DAILY 06/25/18 [History] Insulin Aspart [NovoLOG] 18 - 20 units SQ TID 06/25/18 [History] Insulin Detemir [Levemir] 25 unit SUBCUT BEDTIME 06/25/18 [History] Lutein 20 mg PO DAILY 06/25/18 [History] Lutein/Zeaxanthin [Lutein-Zeaxanthin 20-1 mg Sfgl] 1 each PO DAILY 06/25/18 [ History] Mv-Mn/Folic Acid/Calcium/Vit K [Women's 50 Plus Daily Formula] 1 each PO DAILY 06/25/18 [History] Ubidecarenone [Co Q-10] 100 mg PO DAILY 06/25/18 [History] Vitamin B Complex [Super B-50 Complex] 1 each PO DAILY 06/25/18 [History] ALPRAZolam [Xanax] 0.5 mg PO BEDTIME PRN 10/17/18 [History] Acetaminophen 325 mg PO Q4H PRN 10/17/18 [History] Magnesium 250 mg PO DAILY 10/17/18 [History] Past Medical History HEENT History: Reports: Sinusitis Cardiovascular History: Reports: CAD, Heart Failure, Hypertension Respiratory History: Reports: Bronchitis, Recurrent Gastrointestinal History: Reports: Other (See Below) Other Gastrointestinal History: perforated sigmoid colon Genitourinary History: Reports: Other (See Below) Other Genitourinary History: hs of surgery on kidney, pt unaware of why Musculoskeletal History: Reports: Osteoarthritis Psychiatric History: Reports: Anxiety, Depression Endocrine/Metabolic History: Reports: Diabetes, Type II Hematologic History: Reports: None - Past Surgical History Cardiovascular Surgical History: Reports: Carotid Stents GI Surgical History: Reports: Appendectomy, Colonoscopy, Colostomy, Hernia, Abdominal, Hernia Repair/Other, Lysis of Adhesions, Polypectomy, Other (See Below) Other GI Surgeries/Procedures: REVISION OF COLOSTOMY Neurological Surgical History: Reports: Other (See Below) Musculoskeletal Surgical History: Reports: Hip Replacement, Knee Replacement Oncologic Surgical History: Reports: None Dermatological Surgical History: Reports: None Social & Family History - Family History Family Medical History: Noncontributory Cardiac: Reports: CAD, Heart Failure, Hypertension Neurological: Reports: Cerebral Aneurysms - Tobacco Use Smoking Status *Q: Unknown Ever Smoked - Caffeine Use Caffeine Use: Reports: Coffee - Sexual History Sexual History: Reports: None - Living Situation & Occupation Living situation: Reports: , Single, with Significant Other Occupation: Employed H&P Review of Systems - Review of Systems: Review Of Systems: See Below General: Reports: Malaise, Weakness, Fatigue, Decreased Appetite. Denies: Fever , Chills HEENT: Reports: No Symptoms Pulmonary: Reports: Shortness of Breath. Denies: Cough Cardiovascular: Reports: Edema. Denies: Chest Pain, Lightheadedness Gastrointestinal: Reports: Abdominal Pain, Nausea, Vomiting. Denies: Constipation, Diarrhea Genitourinary: Reports: No Symptoms Musculoskeletal: Reports: No Symptoms Skin: Reports: Other (incision) Psychiatric: Reports: No Symptoms Neurological: Reports: No Symptoms Exam - Exam Exam: See Below - Vital Signs Vital Signs: Last Vital Signs Temp 97.6 F 10/18/18 08:00 Pulse 77 10/18/18 07:50 Resp 16 10/18/18 08:00 BP 152/48 H 10/18/18 08:00 Pulse Ox 96 10/18/18 08:00 Weight: 260 lb 14.4 oz - Exam General: Alert, Oriented HEENT: Conjunctiva Clear, Mucosa Moist & [place], Posterior Pharynx Clear Neck: Supple Lungs: Normal Respiratory Effort, Crackles (RLL) Cardiovascular: Regular Rate, Regular Rhythm GI/Abdominal Exam: Normal Bowel Sounds, Soft, Non-Tender Extremities: Normal Inspection, Pedal Edema (1+) Skin: Incision (Midline incision noted, sutures intact. Edges well approximated ) Neuro Extensive - Mental Status: Alert, Oriented x3 Psychiatric: Alert, Normal Affect, Normal Mood - Patient Data Lab Results Last 24 hrs: Laboratory Results - last 24 hr 10/17/18 10/17/18 10/18/18 Range/Units 17:12 19:48 07:27 POC Glucose 267 H 174 H 160 H (75-105) mg/dl - Problem List (1) H/O ventral hernia repair SNOMED Code(s): 96417381950877, [id number] ICD Code: Z98.890 - OTHER SPECIFIED POSTPROCEDURAL STATES; Z87.19 - PERSONAL HISTORY OF OTHER DISEASES OF THE DIGESTIVE SYSTEM Status: Acute Priority: High Current Visit: Yes (2) Diabetes mellitus type 2 SNOMED Code(s): 72097498 ICD Code: E11.9 - TYPE 2 DIABETES MELLITUS WITHOUT COMPLICATIONS Status: Chronic Priority: High Current Visit: Yes (3) HTN, Benign essential hypertension SNOMED Code(s): 2404720 ICD Code: I10 - ESSENTIAL (PRIMARY) HYPERTENSION Status: Chronic Priority : Medium Current Visit: Yes Problem List Initiated/Reviewed/Updated: Yes Orders Last 24hrs: Active Orders 24 hr Category Date Time Status Patient Status [ADT] Routine ADT 10/17/18 15:33 Active Blood Glucose Check, Bedside [RC] 0730,1130,1700,2100 Care 10/17/18 15:38 Active Intake and Output [RC] 0600,1800 Care 10/17/18 15:41 Active Oxygen Therapy [RC] .PRN Care 10/17/18 15:33 Active RT Aerosol Therapy [RC] 0800,1999 Care 10/17/18 15:45 Active Up With Assistance [RC] .PRN Care 10/17/18 15:38 Active Vital Signs [RC] 0800,1600,2000 Care 10/17/18 15:33 Active Wound Care [RC] 0800 Care 10/18/18 08:00 Active PT Evaluation and Treatment [CONS] Routine Cons 10/17/18 15:38 Active Consistent Carbohydrate Diet [DIET] Diet 10/17/18 Dinner Active BASIC METABOLIC PANEL,BMP [CHEM] Timed Lab 10/20/18 05:11 Ordered C-REACTIVE PROTEIN [CHEM] Timed Lab 10/20/18 05:11 Ordered CBC WITH AUTO DIFF [HEME] Timed Lab 10/20/18 05:11 Ordered ALPRAZolam [Xanax] Med 10/17/18 15:48 Active 0.5 mg PO BEDTIME PRN Acetaminophen [Tylenol] Med 10/17/18 15:48 Active 325 mg PO Q4H PRN Acetaminophen/HYDROcodone [[place] 325-5 MG] Med 10/17/18 15:38 Active 1 tab PO Q4H PRN Albuterol/Ipratropium [DuoNeb 3.0-0.5 MG/3 ML] Med 10/17/18 15:38 Active 3 ml NEB Q4H PRN Allopurinol [Zyloprim] Med 10/18/18 08:00 Active 100 mg PO DAILY Aspirin Med 10/18/18 08:00 Active 81 mg PO DAILY Budesonide [Pulmicort] Med 10/17/18 20:00 Active 0.5 mg NEB BIDRT Carvedilol [Coreg] Med 10/17/18 17:30 Active 6.25 mg PO BIDMEALS Cholecalciferol (Vitamin D3) [Vitamin D3] Med 10/18/18 08:00 Active 50 mcg PO DAILY Diltiazem [Cardizem CD] Med 10/18/18 08:00 Active 240 mg PO DAILY Enoxaparin [Lovenox] Med 10/17/18 18:00 Active 30 mg SUBCUT Q24H Furosemide [Lasix] Med 10/17/18 16:00 Active 40 mg PO 0800,1600 Gabapentin [Neurontin] Med 10/17/18 20:00 Active 100 mg PO TID Insulin Glarg,Human.Rec.Analog [LantUS Solostar] Med 10/17/18 20:00 Active 25 units SUBCUT BEDTIME Insulin Lispro [HumaLOG] Med 10/18/18 08:30 Active 0 unit SUBCUT QIDPCANDBED Magnesium Hydroxide [Milk of Magnesia] Med 10/17/18 15:38 Active 30 ml PO Q12H PRN Magnesium Oxide Med 10/18/18 08:00 Active 250 mg PO DAILY Multivitamins [Tab-A-Tj] Med 10/18/18 08:00 Active 1 tab PO DAILY Ondansetron [Zofran ODT] Med 10/17/18 15:38 Active 4 mg PO Q4H PRN Pantoprazole [ProTONIX] Med 10/18/18 07:00 Active 40 mg PO ACBREAKFAST Polyethylene Glycol 3350 [MiraLAX] Med 10/18/18 08:00 Active 17 gm PO DAILY Potassium Chloride [Klor-Con 10] Med 10/18/18 08:00 Active 10 meq PO DAILY Sertraline [Zoloft] Med 10/17/18 20:00 Active 50 mg PO BEDTIME Temazepam [Restoril] Med 10/17/18 15:38 Active 15 mg PO BEDTIME PRN Vitamin B Complex Med 10/18/18 08:00 Active 1 each PO DAILY buPROPion [Wellbutrin XL] Med 10/18/18 08:00 Active 300 mg PO DAILY Resuscitation Status Routine Resus Stat 10/17/18 15:32 Ordered Medication Orders Acetaminophen (Tylenol) 325 mg PO Q4H PRN PRN Reason: Pain/Fever Hydrocodone Bitart/Acetaminophen ([place] 325-5 Mg) 1 tab PO Q4H PRN PRN Reason: Pain Albuterol/Ipratropium (Duoneb 3.0-0.5 Mg/3 Ml) 3 ml NEB Q4H PRN PRN Reason: Dyspnea Allopurinol (Zyloprim) 100 mg PO DAILY [facility] Last Admin: 10/18/18 07:48 Dose: 100 mg Alprazolam (Xanax) 0.5 mg PO BEDTIME PRN PRN Reason: Anxiety Aspirin (Aspirin) 81 mg PO DAILY [facility] Last Admin: 10/18/18 07:47 Dose: 81 mg Budesonide (Pulmicort) 0.5 mg NEB BIDRT [facility] Last Admin: 10/18/18 07:40 Dose: 0.5 mg Admin: 10/17/18 19:50 Dose: 0.5 mg Bupropion HCl (Wellbutrin Xl) 300 mg PO DAILY [facility] Last Admin: 10/18/18 07:47 Dose: 300 mg Carvedilol (Coreg) 6.25 mg PO BIDMEALS [facility] Last Admin: 10/18/18 07:50 Dose: 6.25 mg Admin: 10/17/18 17:19 Dose: 6.25 mg Cholecalciferol (Vitamin D3) 50 mcg PO DAILY [facility] Last Admin: 10/18/18 07:47 Dose: 50 mcg Diltiazem HCl (Cardizem Cd) 240 mg PO DAILY [facility] Last Admin: 10/18/18 07:49 Dose: 240 mg Enoxaparin Sodium (Lovenox) 30 mg SUBCUT Q24H [facility] Last Admin: 10/17/18 17:42 Dose: 30 mg Furosemide (Lasix) 40 mg PO 0800,1600 [facility] Last Admin: 10/18/18 07:48 Dose: 40 mg Admin: 10/17/18 16:26 Dose: 40 mg Gabapentin (Neurontin) 100 mg PO TID [facility] Last Admin: 10/18/18 13:51 Dose: 100 mg Admin: 10/18/18 07:49 Dose: 100 mg Admin: 10/17/18 19:50 Dose: 100 mg Insulin Glargine (Lantus Solostar) 25 units SUBCUT BEDTIME [facility] Last Admin: 10/17/18 19:50 Dose: 25 units Insulin Human Lispro (Humalog) 0 unit SUBCUT QIDPCANDBED [facility]; Protocol Last Admin: 10/18/18 12:40 Dose: 3 units Admin: 10/18/18 07:52 Dose: 3 units Magnesium Hydroxide (Milk Of Magnesia) 30 ml PO Q12H PRN PRN Reason: Constipation Magnesium Oxide (Magnesium Oxide) 250 mg PO DAILY [facility] Last Admin: 10/18/18 07:49 Dose: 250 mg Multivitamins/Minerals/Vitamin C (Tab-A-Tj) 1 tab PO DAILY [facility] Last Admin: 10/18/18 07:49 Dose: 1 tab Ondansetron HCl (Zofran Odt) 4 mg PO Q4H PRN PRN Reason: nausea, able to take PO Last Admin: 10/18/18 13:53 Dose: 4 mg Admin: 10/18/18 09:20 Dose: 4 mg Admin: 10/17/18 16:26 Dose: 4 mg Pantoprazole Sodium (Protonix) 40 mg PO ACBREAKFAST [facility] Last Admin: 10/18/18 07:05 Dose: 40 mg Polyethylene Glycol (Miralax) 17 gm PO DAILY [facility] Last Admin: 10/18/18 07:46 Dose: 17 gm Potassium Chloride (Klor-Con 10) 10 meq PO DAILY [facility] Last Admin: 10/18/18 07:48 Dose: 10 meq Sertraline HCl (Zoloft) 50 mg PO BEDTIME [facility] Last Admin: 10/17/18 19:50 Dose: 50 mg Temazepam (Restoril) 15 mg PO BEDTIME PRN PRN Reason: Sleep Vitamin B Complex (Vitamin B Complex) 1 each PO DAILY [facility] Last Admin: 10/18/18 07:48 Dose: 1 each Assessment/Plan Comment:: S/P Ventral Hernia Repair Recent exacerbation of CHF S/P RYDER, creatinine 1.65 today Weakness Admit for strengthening with PT. Monitor lung sounds and weights.
[2018-10-18] MEDS: Enoxaparin 30 MG/0.3 ML Syringe SUBCUT SCH (17:36)
[2018-10-18] MEDS: Sertraline 25 MG Tab PO SCH (19:47)
[2018-10-18] MEDS: Insulin Glargine,Human Rec. Analog 100 Units/ML 3 ML Pen SUBCUT SCH (22:23)
[2018-10-19] MEDS: Budesonide 0.5 MG/2 ML Neb Susp NEB SCH ×2 (07:26→21:10)
[2018-10-19] MEDS: Pantoprazole 40 MG Tab.CR PO SCH (07:26)
[2018-10-19] MEDS: Multivitamin Tab PO SCH (07:44)
[2018-10-19] MEDS: Aspirin 81 MG Tab.Chew PO SCH (07:44)
[2018-10-19] MEDS: Cholecalciferol (Vitamin D3) 25 MCG Tab PO SCH (07:44)
[2018-10-19] MEDS: Allopurinol 100 MG Tab PO SCH (07:44)
[2018-10-19] MEDS: Diltiazem 120 MG Cap.CD PO SCH (07:44)
[2018-10-19] MEDS: buPROPion 150 MG Tab.ER PO SCH (07:44)
[2018-10-19] MEDS: Potassium Chloride 10 MEQ Tab.ER PO SCH (07:45)
[2018-10-19] MEDS: Furosemide 40 MG Tab PO SCH ×2 (07:45→15:47)
[2018-10-19] MEDS: Gabapentin 100 MG Cap PO SCH ×3 (07:45→21:10)
[2018-10-19] MEDS: Vitamin B Complex Cap PO SCH (07:45)
[2018-10-19] MEDS: Carvedilol 6.25 MG Tab PO SCH ×2 (07:45→17:32)
[2018-10-19] MEDS: Polyethylene Glycol 3350 Powder 17 GM Packet PO SCH (07:48)
[2018-10-19] MEDS: Insulin Lispro 100 Units/ML 3 ML Vial SUBCUT SCH ×4 (07:49→23:07)
[2018-10-19] MEDS: Enoxaparin 30 MG/0.3 ML Syringe SUBCUT SCH (17:32)
[2018-10-19] MEDS: Sertraline 25 MG Tab PO SCH (21:10)
[2018-10-19] MEDS: Insulin Glargine,Human Rec. Analog 100 Units/ML 3 ML Pen SUBCUT SCH (23:07)
[2018-10-20] MEDS: Pantoprazole 40 MG Tab.CR PO SCH (06:31)
[2018-10-20] MEDS: Budesonide 0.5 MG/2 ML Neb Susp NEB SCH ×2 (08:05→19:19)
[2018-10-20] MEDS: buPROPion 150 MG Tab.ER PO SCH (08:05)
[2018-10-20] MEDS: Allopurinol 100 MG Tab PO SCH (08:05)
[2018-10-20] MEDS: Carvedilol 6.25 MG Tab PO SCH ×2 (08:05→17:46)
[2018-10-20] MEDS: Diltiazem 120 MG Cap.CD PO SCH (08:05)
[2018-10-20] MEDS: Aspirin 81 MG Tab.Chew PO SCH (08:05)
[2018-10-20] MEDS: Potassium Chloride 10 MEQ Tab.ER PO SCH (08:06)
[2018-10-20] MEDS: Multivitamin Tab PO SCH (08:06)
[2018-10-20] MEDS: Furosemide 40 MG Tab PO SCH ×2 (08:06→15:08)
[2018-10-20] MEDS: Vitamin B Complex Cap PO SCH (08:06)
[2018-10-20] MEDS: Polyethylene Glycol 3350 Powder 17 GM Packet PO SCH (08:06)
[2018-10-20] MEDS: Gabapentin 100 MG Cap PO SCH ×3 (08:06→19:19)
[2018-10-20] MEDS: Insulin Lispro 100 Units/ML 3 ML Vial SUBCUT SCH ×4 (08:06→21:00)
[2018-10-20] MEDS: Cholecalciferol (Vitamin D3) 25 MCG Tab PO SCH (08:06)
[2018-10-20] MEDS: Enoxaparin 30 MG/0.3 ML Syringe SUBCUT SCH (17:18)
[2018-10-20] MEDS: Sertraline 25 MG Tab PO SCH (19:19)
[2018-10-20] MEDS: Insulin Glargine,Human Rec. Analog 100 Units/ML 3 ML Pen SUBCUT SCH (21:01)
[2018-10-21] MEDS: Pantoprazole 40 MG Tab.CR PO SCH (06:09)
[2018-10-21] MEDS: Insulin Lispro 100 Units/ML 3 ML Vial SUBCUT SCH ×4 (07:49→21:08)
[2018-10-21] MEDS: Budesonide 0.5 MG/2 ML Neb Susp NEB SCH ×2 (07:54→19:10)
[2018-10-21] MEDS: Cholecalciferol (Vitamin D3) 25 MCG Tab PO SCH (07:55)
[2018-10-21] MEDS: buPROPion 150 MG Tab.ER PO SCH (07:55)
[2018-10-21] MEDS: Diltiazem 120 MG Cap.CD PO SCH (07:55)
[2018-10-21] MEDS: Vitamin B Complex Cap PO SCH (07:55)
[2018-10-21] MEDS: Allopurinol 100 MG Tab PO SCH (07:55)
[2018-10-21] MEDS: Aspirin 81 MG Tab.Chew PO SCH (07:55)
[2018-10-21] MEDS: Furosemide 40 MG Tab PO SCH ×2 (07:55→15:00)
[2018-10-21] MEDS: Gabapentin 100 MG Cap PO SCH ×3 (07:55→19:10)
[2018-10-21] MEDS: Polyethylene Glycol 3350 Powder 17 GM Packet PO SCH (07:56)
[2018-10-21] MEDS: Carvedilol 6.25 MG Tab PO SCH ×2 (07:56→18:10)
[2018-10-21] MEDS: Multivitamin Tab PO SCH (07:56)
[2018-10-21] MEDS: Potassium Chloride 10 MEQ Tab.ER PO SCH (07:56)
[2018-10-21] MEDS: Enoxaparin 30 MG/0.3 ML Syringe SUBCUT SCH (18:10)
[2018-10-21] MEDS: Sertraline 25 MG Tab PO SCH (19:10)
[2018-10-21] MEDS: Insulin Glargine,Human Rec. Analog 100 Units/ML 3 ML Pen SUBCUT SCH (21:09)
[2018-10-22] MEDS: Pantoprazole 40 MG Tab.CR PO SCH (06:35)
[2018-10-22] MEDS: Budesonide 0.5 MG/2 ML Neb Susp NEB SCH ×2 (07:39→19:20)
[2018-10-22] MEDS: Gabapentin 100 MG Cap PO SCH ×3 (07:39→19:20)
[2018-10-22] MEDS: Potassium Chloride 10 MEQ Tab.ER PO SCH (07:39)
[2018-10-22] MEDS: Vitamin B Complex Cap PO SCH (07:39)
[2018-10-22] MEDS: Aspirin 81 MG Tab.Chew PO SCH (07:39)
[2018-10-22] MEDS: Diltiazem 120 MG Cap.CD PO SCH (07:39)
[2018-10-22] MEDS: Allopurinol 100 MG Tab PO SCH (07:39)
[2018-10-22] MEDS: Cholecalciferol (Vitamin D3) 25 MCG Tab PO SCH (07:40)
[2018-10-22] MEDS: Carvedilol 6.25 MG Tab PO SCH ×2 (07:40→17:03)
[2018-10-22] MEDS: buPROPion 150 MG Tab.ER PO SCH (07:40)
[2018-10-22] MEDS: Multivitamin Tab PO SCH (07:40)
[2018-10-22] MEDS: Furosemide 40 MG Tab PO SCH ×2 (07:40→15:23)
[2018-10-22] MEDS: Insulin Lispro 100 Units/ML 3 ML Vial SUBCUT SCH ×4 (07:48→20:50)
[2018-10-22] MEDS: Polyethylene Glycol 3350 Powder 17 GM Packet PO SCH (07:49)
[2018-10-22] MEDS: Enoxaparin 30 MG/0.3 ML Syringe SUBCUT SCH (17:27)
[2018-10-22] MEDS: Sertraline 25 MG Tab PO SCH (19:19)
[2018-10-22] MEDS: Insulin Glargine,Human Rec. Analog 100 Units/ML 3 ML Pen SUBCUT SCH (20:49)
[2018-10-23] MEDS: Pantoprazole 40 MG Tab.CR PO SCH (06:30)
[2018-10-23] MEDS: Budesonide 0.5 MG/2 ML Neb Susp NEB SCH ×2 (08:04→20:02)
[2018-10-23] MEDS: Diltiazem 120 MG Cap.CD PO SCH (08:04)
[2018-10-23] MEDS: Aspirin 81 MG Tab.Chew PO SCH (08:05)
[2018-10-23] MEDS: Vitamin B Complex Cap PO SCH (08:05)
[2018-10-23] MEDS: Carvedilol 6.25 MG Tab PO SCH ×2 (08:05→17:29)
[2018-10-23] MEDS: Cholecalciferol (Vitamin D3) 25 MCG Tab PO SCH (08:05)
[2018-10-23] MEDS: Gabapentin 100 MG Cap PO SCH ×3 (08:05→20:02)
[2018-10-23] MEDS: Furosemide 40 MG Tab PO SCH ×2 (08:06→16:21)
[2018-10-23] MEDS: Multivitamin Tab PO SCH (08:06)
[2018-10-23] MEDS: Insulin Lispro 100 Units/ML 3 ML Vial SUBCUT SCH ×4 (08:06→20:11)
[2018-10-23] MEDS: buPROPion 150 MG Tab.ER PO SCH (08:06)
[2018-10-23] MEDS: Potassium Chloride 10 MEQ Tab.ER PO SCH (08:06)
[2018-10-23] MEDS: Allopurinol 100 MG Tab PO SCH (08:06)
[2018-10-23] MEDS: Polyethylene Glycol 3350 Powder 17 GM Packet PO SCH (08:10)
[2018-10-23] MEDS: Enoxaparin 30 MG/0.3 ML Syringe SUBCUT SCH (17:28)
[2018-10-23] MEDS: Sertraline 25 MG Tab PO SCH (20:01)
[2018-10-23] MEDS: Insulin Glargine,Human Rec. Analog 100 Units/ML 3 ML Pen SUBCUT SCH (20:12)
[2018-10-24] MEDS: Pantoprazole 40 MG Tab.CR PO SCH (06:53)
[2018-10-24] MEDS: buPROPion 150 MG Tab.ER PO SCH (07:43)
[2018-10-24] MEDS: Budesonide 0.5 MG/2 ML Neb Susp NEB SCH ×2 (07:43→19:55)
[2018-10-24] MEDS: Polyethylene Glycol 3350 Powder 17 GM Packet PO SCH (07:43)
[2018-10-24] MEDS: Aspirin 81 MG Tab.Chew PO SCH (07:43)
[2018-10-24] MEDS: Potassium Chloride 10 MEQ Tab.ER PO SCH (07:44)
[2018-10-24] MEDS: Multivitamin Tab PO SCH (07:44)
[2018-10-24] MEDS: Allopurinol 100 MG Tab PO SCH (07:44)
[2018-10-24] MEDS: Furosemide 40 MG Tab PO SCH ×2 (07:44→16:54)
[2018-10-24] MEDS: Diltiazem 120 MG Cap.CD PO SCH (07:45)
[2018-10-24] MEDS: Carvedilol 6.25 MG Tab PO SCH ×2 (07:45→16:55)
[2018-10-24] MEDS: Cholecalciferol (Vitamin D3) 25 MCG Tab PO SCH (07:45)
[2018-10-24] MEDS: Gabapentin 100 MG Cap PO SCH ×3 (07:45→19:54)
[2018-10-24] MEDS: Insulin Lispro 100 Units/ML 3 ML Vial SUBCUT SCH ×4 (07:46→20:30)
[2018-10-24] MEDS: Vitamin B Complex Cap PO SCH (07:46)
[2018-10-24] MEDS: Enoxaparin 30 MG/0.3 ML Syringe SUBCUT SCH (16:59)
[2018-10-24] MEDS: Sertraline 25 MG Tab PO SCH (19:54)
[2018-10-24] MEDS: Insulin Glargine,Human Rec. Analog 100 Units/ML 3 ML Pen SUBCUT SCH (20:31)
[2018-10-25] MEDS: Acetaminophen 325 MG Tab PO PRN (04:10)
[2018-10-25] MEDS: Pantoprazole 40 MG Tab.CR PO SCH (07:42)
[2018-10-25] MEDS: Budesonide 0.5 MG/2 ML Neb Susp NEB SCH ×2 (07:43→19:45)
[2018-10-25] MEDS: Aspirin 81 MG Tab.Chew PO SCH (07:44)
[2018-10-25] MEDS: Gabapentin 100 MG Cap PO SCH ×3 (07:44→19:45)
[2018-10-25] MEDS: Furosemide 40 MG Tab PO SCH ×2 (07:44→16:45)
[2018-10-25] MEDS: Carvedilol 6.25 MG Tab PO SCH ×2 (07:44→16:48)
[2018-10-25] MEDS: Diltiazem 120 MG Cap.CD PO SCH (07:44)
[2018-10-25] MEDS: Vitamin B Complex Cap PO SCH (07:44)
[2018-10-25] MEDS: Potassium Chloride 10 MEQ Tab.ER PO SCH (07:44)
[2018-10-25] MEDS: Multivitamin Tab PO SCH (07:44)
[2018-10-25] MEDS: Allopurinol 100 MG Tab PO SCH (07:45)
[2018-10-25] MEDS: buPROPion 150 MG Tab.ER PO SCH (07:45)
[2018-10-25] MEDS: Polyethylene Glycol 3350 Powder 17 GM Packet PO SCH (07:48)
[2018-10-25] MEDS: Insulin Lispro 100 Units/ML 3 ML Vial SUBCUT SCH ×4 (07:48→20:33)
[2018-10-25] MEDS: Cholecalciferol (Vitamin D3) 25 MCG Tab PO SCH (07:59)
[2018-10-25] MEDS: Enoxaparin 30 MG/0.3 ML Syringe SUBCUT SCH (17:14)
[2018-10-25] MEDS: Sertraline 25 MG Tab PO SCH (19:45)
[2018-10-25] MEDS: Insulin Glargine,Human Rec. Analog 100 Units/ML 3 ML Pen SUBCUT SCH (20:34)
[2018-10-26] MEDS: Acetaminophen 325 MG Tab PO PRN (06:10)
[2018-10-26] MEDS: Pantoprazole 40 MG Tab.CR PO SCH (06:10)
[2018-10-26] MEDS: Budesonide 0.5 MG/2 ML Neb Susp NEB SCH ×2 (07:49→20:28)
[2018-10-26] MEDS: Aspirin 81 MG Tab.Chew PO SCH (07:51)
[2018-10-26] MEDS: Furosemide 40 MG Tab PO SCH ×2 (07:51→16:38)
[2018-10-26] MEDS: Allopurinol 100 MG Tab PO SCH (07:51)
[2018-10-26] MEDS: buPROPion 150 MG Tab.ER PO SCH (07:51)
[2018-10-26] MEDS: Diltiazem 120 MG Cap.CD PO SCH (07:51)
[2018-10-26] MEDS: Cholecalciferol (Vitamin D3) 25 MCG Tab PO SCH (07:51)
[2018-10-26] MEDS: Carvedilol 6.25 MG Tab PO SCH ×2 (07:51→16:38)
[2018-10-26] MEDS: Gabapentin 100 MG Cap PO SCH ×3 (07:51→20:28)
[2018-10-26] MEDS: Polyethylene Glycol 3350 Powder 17 GM Packet PO SCH (07:52)
[2018-10-26] MEDS: Vitamin B Complex Cap PO SCH (07:52)
[2018-10-26] MEDS: Potassium Chloride 10 MEQ Tab.ER PO SCH (07:52)
[2018-10-26] MEDS: Multivitamin Tab PO SCH (07:52)
[2018-10-26] MEDS: Insulin Lispro 100 Units/ML 3 ML Vial SUBCUT SCH ×4 (07:52→20:43)
[2018-10-26] MEDS: Enoxaparin 30 MG/0.3 ML Syringe SUBCUT SCH (17:07)
[2018-10-26] MEDS: Sertraline 25 MG Tab PO SCH (20:28)
[2018-10-26] MEDS: Insulin Glargine,Human Rec. Analog 100 Units/ML 3 ML Pen SUBCUT SCH (20:43)
[2018-10-27] MEDS: Pantoprazole 40 MG Tab.CR PO SCH (06:05)
[2018-10-27] MEDS: Multivitamin Tab PO SCH (08:02)
[2018-10-27] MEDS: Allopurinol 100 MG Tab PO SCH (08:02)
[2018-10-27] MEDS: Budesonide 0.5 MG/2 ML Neb Susp NEB SCH (08:02)
[2018-10-27] MEDS: Potassium Chloride 10 MEQ Tab.ER PO SCH (08:03)
[2018-10-27] MEDS: Vitamin B Complex Cap PO SCH (08:03)
[2018-10-27] MEDS: Polyethylene Glycol 3350 Powder 17 GM Packet PO SCH (08:03)
[2018-10-27] MEDS: buPROPion 150 MG Tab.ER PO SCH (08:03)
[2018-10-27] MEDS: Aspirin 81 MG Tab.Chew PO SCH (08:03)
[2018-10-27] MEDS: Gabapentin 100 MG Cap PO SCH (08:03)
[2018-10-27] MEDS: Insulin Lispro 100 Units/ML 3 ML Vial SUBCUT SCH (08:03)
[2018-10-27] MEDS: Furosemide 40 MG Tab PO SCH (08:03)
[2018-10-27] MEDS: Carvedilol 6.25 MG Tab PO SCH (08:04)
[2018-10-27 08:05] VITALS: BP 156/71; PULSE 72
[2018-10-27] MEDS: Diltiazem 120 MG Cap.CD PO SCH (08:05)
[2018-10-27] MEDS: Cholecalciferol (Vitamin D3) 25 MCG Tab PO SCH (08:33)
--- NOTE | 2018-10-27 09:36 | PCM.DCSUM1 ---
Discharge Summary - Hospital Course HPI Initial Comments: This patient was admitted swing bed 10/17/18. She had a hernia repair open surgery. After surgery she had some renal failure, but that was resolved to her baseline. Patient also had BLE edema after surgery, but this had also resolved. The patient here in the swing bed has undergone PT. She has done well. She has been out ambulating the hallways without any difficulty. The patient reports she is scheduled to see her surgeon on November 07. She reports that she is doing very well and she feels she is ready to go home. She does live with family. I will discharge the patient home today. - Discharge Data Discharge Date: 10/27/18 Discharge Disposition: Home, Self-Care 01 Condition: Good - Patient Summary/Data Consults: Consultations 10/17/18 15:38 PT Evaluation and Treatment [CONS] Routine - Patient Instructions Diet: Usual Diet as Tolerated Activity: As Tolerated Driving: Do Not Drive (until cleared by surgeon to do so) Showering/Bathing: May Shower Wound/Incision Care: Keep Operative Site/Wound Site Clean and Dry, Do NOT Change Dressing (Let tape fall off) Notify Provider of: Fever, Increased Pain, Swelling and Redness, Drainage, Nausea and/or Vomiting Other/Special Instructions: Followup with your surgeon as scheduled. Followup with primary care provider as needed - Discharge Plan *PRESCRIPTION DRUG MONITORING PROGRAM REVIEWED*: No *COPY OF PRESCRIPTION DRUG MONITORING REPORT IN PATIENT CORNELIO: No Prescriptions/Med Rec: Carvedilol [Coreg] 6.25 mg PO BIDMEALS #60 tablet Home Medications: Home Meds Pantoprazole [ProTONIX] 40 mg PO DAILY 45 Days tab.cr 11/26/13 [Rx] Aspirin 81 mg PO DAILY 11/05/16 [History] Allopurinol [Zyloprim] 100 mg PO DAILY 04/21/17 [History] Gabapentin [Neurontin] 100 mg PO TID 05/14/17 [History] buPROPion HCl [Wellbutrin Xl] 300 mg PO DAILY 05/14/17 [History] Sertraline [Zoloft] 50 mg PO BEDTIME #30 tablet 06/28/17 [Rx] Potassium Chloride [Klor-Con 10] 10 meq PO DAILY 07/21/17 [History] Polyethylene Glycol 3350 [MiraLAX] 17 gm PO DAILY 10/31/17 [History] Furosemide [Lasix] 40 mg PO 0800,1600 #60 tablet 11/26/17 [Rx] Temazepam [Restoril] 15 mg PO BEDTIME PRN #30 cap 11/26/17 [Rx] [place] 500 mg PO DAILY 06/25/18 [History] Cholecalciferol (Vitamin D3) [Vitamin D3] 2,000 unit PO DAILY 06/25/18 [History] Diltiazem HCl [Cartia Xt] 240 mg PO DAILY 06/25/18 [History] Insulin Aspart [NovoLOG] 18 - 20 units SQ TID 06/25/18 [History] Insulin Detemir [Levemir] 25 unit SUBCUT BEDTIME 06/25/18 [History] Lutein 20 mg PO DAILY 06/25/18 [History] Lutein/Zeaxanthin [Lutein-Zeaxanthin 20-1 mg Sfgl] 1 each PO DAILY 06/25/18 [ History] Mv-Mn/Folic Acid/Calcium/Vit K [Women's 50 Plus Daily Formula] 1 each PO DAILY 06/25/18 [History] Ubidecarenone [Co Q-10] 100 mg PO DAILY 06/25/18 [History] Vitamin B Complex [Super B-50 Complex] 1 each PO DAILY 06/25/18 [History] ALPRAZolam [Xanax] 0.5 mg PO BEDTIME PRN 10/17/18 [History] Magnesium 250 mg PO DAILY 10/17/18 [History] Carvedilol [Coreg] 6.25 mg PO BIDMEALS #60 tablet 10/27/18 [Rx] Oxygen Therapy Mode: Room Air Patient Handouts: Hernia, Adult, [id number], Open Hernia Repair, Adult, Care After, [id number] - Discharge Summary/Plan Comment DC Time >30 min.: No Discharge Summary/Plan Comment: Followup with surgeon as scheduled Followup with primary care provider - General Info Date of Service: 10/27/18 Functional Status: Reports: Pain Controlled, Tolerating Diet, Ambulating, Urinating - Review of Systems General: Reports: No Symptoms HEENT: Reports: No Symptoms Pulmonary: Reports: No Symptoms Cardiovascular: Reports: No Symptoms Gastrointestinal: Reports: No Symptoms Genitourinary: Reports: No Symptoms Musculoskeletal: Reports: No Symptoms Skin: Reports: No Symptoms Neurological: Reports: No Symptoms Psychiatric: Reports: No Symptoms - Patient Data Vitals - Most Recent: Last Vital Signs Temp 97.6 F 10/27/18 08:00 Pulse 72 10/27/18 08:05 Resp 18 10/27/18 08:00 BP 156/71 H 10/27/18 08:05 Pulse Ox 99 10/27/18 08:00 Weight - Most Recent: 255 lb 11.2 oz Lab Results - Last 24 hrs: Laboratory Results - last 24 hr 10/26/18 10/26/18 10/26/18 Range/Units 11:53 17:02 20:41 POC Glucose 177 H 207 H 165 H (75-105) mg/dl 10/27/18 Range/Units 07:38 POC Glucose 80 (75-105) mg/dl Med Orders - Current: Current Medications Acetaminophen (Tylenol) 325 mg PO Q4H PRN PRN Reason: Pain/Fever Last Admin: 10/26/18 06:10 Dose: 325 mg Hydrocodone Bitart/Acetaminophen ([place] 325-5 Mg) 1 tab PO Q4H PRN PRN Reason: Pain Albuterol/Ipratropium (Duoneb 3.0-0.5 Mg/3 Ml) 3 ml NEB Q4H PRN PRN Reason: Dyspnea Allopurinol (Zyloprim) 100 mg PO DAILY [facility] Last Admin: 10/27/18 08:02 Dose: 100 mg Alprazolam (Xanax) 0.5 mg PO BEDTIME PRN PRN Reason: Anxiety Aspirin (Aspirin) 81 mg PO DAILY [facility] Last Admin: 10/27/18 08:03 Dose: 81 mg Budesonide (Pulmicort) 0.5 mg NEB BIDRT [facility] Last Admin: 10/27/18 08:02 Dose: 0.5 mg Bupropion HCl (Wellbutrin Xl) 300 mg PO DAILY [facility] Last Admin: 10/27/18 08:03 Dose: 300 mg Carvedilol (Coreg) 6.25 mg PO BIDMEALS [facility] Last Admin: 10/27/18 08:04 Dose: 6.25 mg Cholecalciferol (Vitamin D3) 50 mcg PO DAILY [facility] Last Admin: 10/27/18 08:33 Dose: 50 mcg Diltiazem HCl (Cardizem Cd) 240 mg PO DAILY [facility] Last Admin: 10/27/18 08:05 Dose: 240 mg Enoxaparin Sodium (Lovenox) 30 mg SUBCUT Q24H [facility] Last Admin: 10/26/18 17:07 Dose: 30 mg Furosemide (Lasix) 40 mg PO 0800,1600 [facility] Last Admin: 10/27/18 08:03 Dose: 40 mg Gabapentin (Neurontin) 100 mg PO TID [facility] Last Admin: 10/27/18 08:03 Dose: 100 mg Insulin Glargine (Lantus Solostar) 25 units SUBCUT BEDTIME@2100 [facility] Last Admin: 10/26/18 20:43 Dose: 25 unit Insulin Human Lispro (Humalog) 0 unit SUBCUT WITHMEALSANDBED [facility]; Protocol Last Admin: 10/27/18 08:03 Dose: Not Given Magnesium Hydroxide (Milk Of Magnesia) 30 ml PO Q12H PRN PRN Reason: Constipation Magnesium Oxide (Magnesium Oxide) 250 mg PO DAILY [facility] Last Admin: 10/27/18 08:03 Dose: 250 mg Multivitamins/Minerals/Vitamin C (Tab-A-Tj) 1 tab PO DAILY [facility] Last Admin: 10/27/18 08:02 Dose: 1 tab Ondansetron HCl (Zofran Odt) 4 mg PO Q4H PRN PRN Reason: nausea, able to take PO Last Admin: 10/18/18 13:53 Dose: 4 mg Pantoprazole Sodium (Protonix) 40 mg PO ACBREAKFAST [facility] Last Admin: 10/27/18 06:05 Dose: 40 mg Polyethylene Glycol (Miralax) 17 gm PO DAILY [facility] Last Admin: 10/27/18 08:03 Dose: Not Given Potassium Chloride (Klor-Con 10) 10 meq PO DAILY [facility] Last Admin: 10/27/18 08:03 Dose: 10 meq Sertraline HCl (Zoloft) 50 mg PO BEDTIME [facility] Last Admin: 10/26/18 20:28 Dose: 50 mg Temazepam (Restoril) 15 mg PO BEDTIME PRN PRN Reason: Sleep Vitamin B Complex (Vitamin B Complex) 1 each PO DAILY [facility] Last Admin: 10/27/18 08:03 Dose: 1 each Discontinued Medications Insulin Glargine (Lantus Solostar) 25 units SUBCUT BEDTIME [facility] Last Admin: 10/19/18 23:07 Dose: 25 units Insulin Human Lispro (Humalog) 18 - 20 unit SUBCUT TID [facility] Insulin Human Lispro (Humalog) 0 unit SUBCUT QIDACANDBED [facility]; Protocol Last Admin: 10/17/18 19:49 Dose: Not Given Insulin Human Lispro (Humalog) 0 unit SUBCUT QIDPCANDBED [facility]; Protocol Last Admin: 10/20/18 08:06 Dose: Not Given Non-Formulary Medication ([place] [[place]]) 500 mg PO DAILY [facility] Non-Formulary Medication (Lutein [Lutein]) 20 mg PO DAILY [facility] Non-Formulary Medication (Lutein/Zeaxanthin [Lutein-Zeaxanthin 20-1 Mg Sfgl]) 1 each PO DAILY [facility] Non-Formulary Medication (Ubidecarenone [Co Q-10]) 100 mg PO DAILY [facility] - Exam General: Reports: Alert, Oriented, Cooperative, No Acute Distress Lungs: Reports: Clear to Auscultation, Normal Respiratory Effort Cardiovascular: Reports: Regular Rate, Regular Rhythm, No Murmurs GI/Abdominal Exam: Normal Bowel Sounds, Soft, Non-Tender, No Organomegaly, No Distention, No Abnormal Bruit, No Mass, Pelvis Stable, Other (surgical wound healing well. No redness, no drainage. tape in place. Vertical.) Extremities: Normal Inspection, Normal Range of Motion, Non-Tender, No Pedal Edema, Normal Capillary Refill Skin: Reports: Warm, Dry Wound/Incisions: Reports: Healing Well, Dressing Dry and Intact, No Drainage. Denies: Erythema Neurological: Reports: No New Focal Deficit Psy/Mental Status: Reports: Alert, Normal Affect, Normal Mood
== END 2018-10-27 11:11 | disposition home or self-care (01) | DRG 950 ==
LOC: CC.MS 14:02 → UNDOADMIN 14:02 → CC.MS 15:32
PROVIDERS: ADMIT Family Medicine; ATTEND Family Medicine
DX: Z48.815 Encounter for surgical aftercare following surgery on the digestive system (principal); Z98.890 Other specified postprocedural states; R53.1 Weakness; I25.10 Atherosclerotic heart disease of native coronary artery without angina pectoris; I11.0 Hypertensive heart disease with heart failure; I50.9 Heart failure, unspecified; M19.90 Unspecified osteoarthritis, unspecified site; F32.9 Major depressive disorder, single episode, unspecified; F41.9 Anxiety disorder, unspecified; E11.9 Type 2 diabetes mellitus without complications; Z96.649 Presence of unspecified artificial hip joint; Z96.659 Presence of unspecified artificial knee joint; Z88.8 Allergy status to other drugs, medicaments and biological substances; Z91.048 Other nonmedicinal substance allergy status; Z79.82 Long term (current) use of aspirin; Z79.4 Long term (current) use of insulin; Z79.899 Other long term (current) drug therapy
CPT/HCPCS: 36415; 80048; 82962; 85025; 86140; 94640; 97110-GP; 97161-GP; 97530-GP; A9270-GY; J1650; J1815; J1815-GY

== ENCOUNTER 2018-11-10 14:33 | Inpatient (IN) | payer MEDICARE, OTHER ==
[2018-11-10 15:01] LABS: CHLORIDE,CL 102 mEq/L (98-106); SODIUM,NA 138 mEq/L (136-145)
[2018-11-10] MEDS ORDERED: Temazepam 15 MG Cap PO PRN (16:54)
[2018-11-10] MEDS ORDERED: TEMAZEPAM 15 MG PO PRN (16:58)
[2018-11-10] MEDS ORDERED: Barium Sulfate Oral Susp 450 ML Bottle PO ONE (17:19)
[2018-11-10] MEDS ORDERED: Iopamidol 755 Mg/ML 100 ML Bottle IVPUSH ONE (17:19)
[2018-11-10] MEDS: Sodium Chloride 0.9% 1,000 ML IV SCH (17:45)
[2018-11-10] MEDS: Ondansetron 4 MG Tab.DIS PO PRN (17:46)
[2018-11-10] MEDS: Enoxaparin 30 MG/0.3 ML Syringe SUBCUT SCH (17:48)
[2018-11-10] MEDS: cefTRIAXone 1 GM Vial IVPUSH SCH (17:49)
[2018-11-10] MEDS: CARVEDILOL 6.25 MG PO SCH (17:51)
[2018-11-10] MEDS: fentaNYL 100 MCG/2 ML SDV IVPUSH PRN ×2 (17:57→23:54)
[2018-11-10] MEDS: Pantoprazole 40 MG Vial IVPUSH SCH (18:20)
[2018-11-10] MEDS: SERTRALINE 50 MG PO SCH (19:42)
[2018-11-10] MEDS: **PTOM** Gabapentin 100 MG Cap PO SCH (19:43)
[2018-11-10] MEDS ORDERED: Sertraline 100 MG Tab PO SCH (20:00)
[2018-11-10] MEDS: Insulin Lispro 100 Units/ML 3 ML Vial SUBCUT SCH (21:04)
[2018-11-11] MEDS: Ondansetron 4 MG Tab.DIS PO PRN (04:14)
[2018-11-11] MEDS: Sodium Chloride 0.9% 1,000 ML IV SCH (07:07)
[2018-11-11] MEDS ORDERED: Acetaminophen 325 MG Tab PO PRN (07:21)
[2018-11-11] MEDS: **PTOM** Losartan 100 MG Tab PO SCH (08:01)
[2018-11-11] MEDS: CARVEDILOL 6.25 MG PO SCH ×2 (08:01→17:25)
[2018-11-11] MEDS: **PTOM** Allopurinol 100 MG Tab PO SCH (08:02)
[2018-11-11] MEDS: **PTOM** Potassium Chloride 10 MEQ Tab.ER PO SCH (08:03)
[2018-11-11] MEDS: BUPROPION HCL 300 MG PO SCH (08:03)
[2018-11-11] MEDS: DILTIAZEM HCL 240 MG PO SCH (08:03)
[2018-11-11] MEDS: **PTOM** Furosemide 40 MG Tab PO SCH (08:04)
[2018-11-11] MEDS: **PTOM** Gabapentin 100 MG Cap PO SCH ×3 (08:04→20:17)
[2018-11-11] MEDS: ASPIRIN 81 MG PO SCH (08:04)
[2018-11-11] MEDS: Insulin Lispro 100 Units/ML 3 ML Vial SUBCUT SCH ×5 (08:05→20:15)
[2018-11-11] MEDS: Pantoprazole 40 MG Vial IVPUSH SCH ×2 (08:12→20:22)
[2018-11-11] MEDS: cefTRIAXone 1 GM Vial IVPUSH SCH (15:56)
[2018-11-11] MEDS: Enoxaparin 30 MG/0.3 ML Syringe SUBCUT SCH (15:59)
--- NOTE | 2018-11-11 19:52 | PCM.PN ---
- General Info Date of Service: 11/11/18 Admission Dx/Problem (Free Text): Abdominal Pain Functional Status: Denies: Pain Controlled, Tolerating Diet - Review of Systems General: Reports: Weakness, Fatigue. Denies: Fever HEENT: Reports: No Symptoms Pulmonary: Denies: Shortness of Breath, Cough Cardiovascular: Denies: Chest Pain, Edema, Lightheadedness Gastrointestinal: Reports: Abdominal Pain, Decreased Appetite, Nausea. Denies: Vomiting Genitourinary: Reports: No Symptoms Musculoskeletal: Reports: No Symptoms Skin: Reports: No Symptoms Neurological: Reports: Weakness - Patient Data Vitals - Most Recent: Last Vital Signs Temp 97.3 F 11/11/18 16:00 Pulse 72 11/11/18 17:25 Resp 20 11/11/18 16:00 BP 134/70 11/11/18 17:25 Pulse Ox 96 11/11/18 16:00 Weight - Most Recent: 243 lb 14.4 oz I&O - Last 24 Hours: Intake & Output 11/11/18 11/11/18 11/11/18 06:59 14:59 22:59 Intake Total 400 1000 400 Output Total 325 Balance 400 1000 75 Lab Results Last 24 Hours: Laboratory Results - last 24 hr 11/10/18 11/11/18 11/11/18 Range/Units 20:32 07:55 12:03 POC Glucose 181 H 145 H 181 H (75-105) mg/dl 11/11/18 Range/Units 17:12 POC Glucose 156 H (75-105) mg/dl Tony Results Last 24 Hours: Microbiology 11/10/18 15:00 Urine Culture - Preliminary Urine, Clean Catch Med Orders - Current: Current Medications Acetaminophen (Tylenol) 650 mg PO Q4H PRN PRN Reason: Abdominal Pain Allopurinol (Zyloprim) 100 mg PO DAILY [facility] Last Admin: 11/11/18 08:02 Dose: 100 mg Aspirin (Aspirin) 81 mg PO DAILY [facility] Last Admin: 11/11/18 08:04 Dose: 81 mg Carvedilol (Coreg) 6.25 mg PO BIDMEALS [facility] Last Admin: 11/11/18 17:25 Dose: 6.25 mg Ceftriaxone Sodium (Rocephin) 1 gm IVPUSH DAILY@1600 [facility] Last Admin: 11/11/18 15:56 Dose: 1 gm Enoxaparin Sodium (Lovenox) 30 mg SUBCUT DAILY@1600 [facility] Last Admin: 11/11/18 15:59 Dose: 30 mg Fentanyl (Sublimaze) 25 mcg IVPUSH Q6H PRN PRN Reason: Abdominal Pain Last Admin: 11/10/18 23:54 Dose: 25 mcg Furosemide (Lasix) 40 mg PO DAILY [facility] Last Admin: 11/11/18 08:04 Dose: 40 mg Gabapentin (Neurontin) 100 mg PO TID [facility] Last Admin: 11/11/18 14:06 Dose: 100 mg Insulin Human Lispro (Humalog) 0 unit SUBCUT 0800,1200,1730,2000 [facility]; Protocol Last Admin: 11/11/18 17:27 Dose: 2 units Losartan Potassium (Cozaar) 100 mg PO DAILY [facility] Last Admin: 11/11/18 08:01 Dose: 100 mg Ptom Bupropion Hcl [Wellbutrin Xl] 300 Mg 300 mg PO DAILY [facility] Last Admin: 11/11/18 08:03 Dose: 300 mg Ptom Diltiazem Hcl [Cartia Xt] 240 Mg) 240 mg PO DAILY [facility] Last Admin: 11/11/18 08:03 Dose: 240 mg Ptom Sertraline (50 Mg Tab) 50 mg PO BEDTIME [facility] Last Admin: 11/10/18 19:42 Dose: 50 mg Ondansetron HCl (Zofran Odt) 8 mg PO Q6H PRN PRN Reason: nausea, able to take PO Last Admin: 11/11/18 04:14 Dose: 8 mg Pantoprazole Sodium (Protonix Iv) 40 mg IVPUSH BID [facility] Last Admin: 11/11/18 08:12 Dose: 40 mg Potassium Chloride (Klor-Con 10) 10 meq PO DAILY [facility] Last Admin: 11/11/18 08:03 Dose: 10 meq Temazepam (Restoril) 15 mg PO BEDTIME PRN PRN Reason: Sleep Last Admin: 11/10/18 22:40 Dose: 15 mg Discontinued Medications Barium Sulfate (Readi-Cat 2) 900 ml PO ONETIME ONE Stop: 11/10/18 17:20 Last Admin: 11/10/18 19:13 Dose: 450 ml Sodium Chloride (Normal Saline) 1,000 mls @ 75 mls/hr IV ASDIRECTED [facility] Last Admin: 11/11/18 07:07 Dose: 75 mls/hr Insulin Human Lispro (Humalog) 0 unit SUBCUT QIDACANDBED [facility]; Protocol Last Admin: 11/11/18 14:03 Dose: Not Given Iopamidol (Isovue-370 (76%)) 100 ml IVPUSH ONETIME ONE Stop: 11/10/18 17:20 Last Admin: 11/10/18 19:13 Dose: 100 ml Sertraline HCl (Zoloft) 50 mg PO BEDTIME [facility] Temazepam (Restoril) 15 mg PO BEDTIME PRN PRN Reason: Sleep - Exam General: Alert, Oriented HEENT: Mucous Membr. Moist/[place] Neck: Supple Lungs: Clear to Auscultation, Normal Respiratory Effort Cardiovascular: Irregular Rhythm GI/Abdominal Exam: Normal Bowel Sounds, Soft, Tender Extremities: Normal Inspection, No Pedal Edema Skin: Warm, Dry Wound/Incisions: Other (Abdominal incision healing well from prior hernia repair ) Neurological: No New Focal Deficit - Problem List & Annotations (1) Abdominal pain SNOMED Code(s): 66259503 Code(s): R10.9 - UNSPECIFIED ABDOMINAL PAIN Status: Acute Priority: High Current Visit: Yes Qualifiers: Abdominal location: upper abdomen, unspecified Qualified Code(s): R10.10 - Upper abdominal pain, unspecified (2) Seroma SNOMED Code(s): 843573470 Code(s): AWQ7141 - Status: Acute Priority: High Current Visit: Yes - Problem List Review Problem List Initiated/Reviewed/Updated: Yes - Assessment Assessment:: Abdominal Pain Seroma - Plan Plan:: Patient continues to complain of pain today, upper quadrants. Feels bloated. CT scan of abdomen done last evening shows a seroma. Has been afebrile. Abdominal incision is clean, healing well. Bowel sounds active. Does still have nausea, tolerating liquids fairly well. Abdomen is slightly distended, tender in the upper quads. Bowel sounds active. Labs noted on admit with WBC of 8.6, hemoglobin 11.5. Creatinine 1.3. CRP 3.1. Bacteria noted in urine. Will stop IV fluids. Continue 1 gm of Rocephin. Repeat labs in am.
[2018-11-11] MEDS: SERTRALINE 50 MG PO SCH (20:18)
[2018-11-12] MEDS: Pantoprazole 40 MG Vial IVPUSH SCH ×2 (07:31→19:35)
[2018-11-12] MEDS: CARVEDILOL 6.25 MG PO SCH ×2 (07:35→17:22)
[2018-11-12] MEDS: BUPROPION HCL 300 MG PO SCH (07:35)
[2018-11-12] MEDS: **PTOM** Losartan 100 MG Tab PO SCH (07:36)
[2018-11-12] MEDS: **PTOM** Potassium Chloride 10 MEQ Tab.ER PO SCH (07:37)
[2018-11-12] MEDS: ASPIRIN 81 MG PO SCH (07:37)
[2018-11-12] MEDS: DILTIAZEM HCL 240 MG PO SCH (07:37)
[2018-11-12] MEDS: **PTOM** Furosemide 40 MG Tab PO SCH (07:38)
[2018-11-12] MEDS: **PTOM** Gabapentin 100 MG Cap PO SCH ×3 (07:38→19:34)
[2018-11-12] MEDS: **PTOM** Allopurinol 100 MG Tab PO SCH (07:38)
[2018-11-12] MEDS: Insulin Lispro 100 Units/ML 3 ML Vial SUBCUT SCH ×4 (07:40→19:49)
[2018-11-12] MEDS ORDERED: Sodium Chloride 0.9% 1,000 ML IV SCH ×3 (09:15→19:30)
--- NOTE | 2018-11-12 10:22 | PCM.PN ---
- General Info Date of Service: 11/12/18 Admission Dx/Problem (Free Text): Abdominal Pain Functional Status: Reports: Pain Controlled, Tolerating Diet, Ambulating - Review of Systems General: Reports: Weakness, Fatigue, Malaise HEENT: Reports: No Symptoms Pulmonary: Denies: Shortness of Breath, Cough Cardiovascular: Denies: Chest Pain, Edema, Lightheadedness Gastrointestinal: Reports: Abdominal Pain. Denies: Nausea, Vomiting Genitourinary: Reports: No Symptoms Musculoskeletal: Reports: Back Pain Skin: Reports: Other (incision to abdomen) Neurological: Reports: Weakness - Patient Data Vitals - Most Recent: Last Vital Signs Temp 99.5 F 11/12/18 08:00 Pulse 80 11/12/18 08:00 Resp 20 11/12/18 08:00 BP 154/69 H 11/12/18 08:00 Pulse Ox 98 11/12/18 08:00 Weight - Most Recent: 244 lb 1.6 oz I&O - Last 24 Hours: Intake & Output 11/11/18 11/12/18 11/12/18 22:59 06:59 14:59 Intake Total 400 360 Output Total 325 150 Balance 75 210 Lab Results Last 24 Hours: Laboratory Results - last 24 hr 11/11/18 11/11/18 11/11/18 Range/Units 12:03 17:12 20:09 WBC (5.0-10.0) 10^3/uL RBC (4.00-5.50) 10^6/uL Hgb (12.0-16.0) g/dL Hct (37.0-47.0) % MCV (82.0-94.0) fL MCH (27.0-32.0) pg MCHC (33.0-38.0) g/dL RDW Coeff of Taniya (11.0-15.0) % Plt Count (150-400) 10^3/uL Add Manual Diff Neutrophils % (Manual) (35-85) % Lymphocytes % (Manual) (21-55) % Monocytes % (Manual) (2-12) % Eosinophils % (Manual) (0-5) % Sodium (136-145) mEq/L Potassium (3.5-5.0) mEq/L Chloride (98-106) mEq/L Carbon Dioxide (21-32) mmol/L BUN (7-18) mg/dL Creatinine (0.6-1.0) mg/dL Est Cr Clr Drug Dosing mL/min Estimated GFR (MDRD) (>=60) mL/min Glucose (75-99) mg/dL POC Glucose 181 H 156 H 184 H (75-105) mg/dl Calcium (8.4-10.1) mg/dL C-Reactive Protein (0.2-0.8) mg/dL 11/12/18 11/12/18 11/12/18 Range/Units 07:00 07:00 07:40 WBC 7.0 (5.0-10.0) 10^3/uL RBC 3.00 L (4.00-5.50) 10^6/uL Hgb 9.3 L (12.0-16.0) g/dL Hct 29.4 L (37.0-47.0) % MCV 98.0 H (82.0-94.0) fL MCH 31.0 (27.0-32.0) pg MCHC 31.6 L (33.0-38.0) g/dL RDW Coeff of Taniya 14.1 (11.0-15.0) % Plt Count 177 (150-400) 10^3/uL Add Manual Diff Yes Neutrophils % (Manual) 47 (35-85) % Lymphocytes % (Manual) 30 (21-55) % Monocytes % (Manual) 7 (2-12) % Eosinophils % (Manual) 16 H (0-5) % Sodium 138 (136-145) mEq/L Potassium 4.7 (3.5-5.0) mEq/L Chloride 104 (98-106) mEq/L Carbon Dioxide 25 (21-32) mmol/L BUN 29 H D (7-18) mg/dL Creatinine 3.1 H* D (0.6-1.0) mg/dL Est Cr Clr Drug Dosing 16.55 mL/min Estimated GFR (MDRD) 15 L (>=60) mL/min Glucose 145 H (75-99) mg/dL POC Glucose 139 H (75-105) mg/dl Calcium 8.0 L (8.4-10.1) mg/dL C-Reactive Protein 3.0 H (0.2-0.8) mg/dL Tony Results Last 24 Hours: Microbiology 11/10/18 15:00 Urine Culture - Final Urine, Clean Catch Med Orders - Current: Current Medications Acetaminophen (Tylenol) 650 mg PO Q4H PRN PRN Reason: Abdominal Pain Allopurinol (Zyloprim) 100 mg PO DAILY [facility] Last Admin: 11/12/18 07:38 Dose: 100 mg Aspirin (Aspirin) 81 mg PO DAILY [facility] Last Admin: 11/12/18 07:37 Dose: 81 mg Carvedilol (Coreg) 6.25 mg PO BIDMEALS [facility] Last Admin: 11/12/18 07:35 Dose: 6.25 mg Ceftriaxone Sodium (Rocephin) 1 gm IVPUSH DAILY@1600 [facility] Last Admin: 11/11/18 15:56 Dose: 1 gm Enoxaparin Sodium (Lovenox) 30 mg SUBCUT DAILY@1600 [facility] Last Admin: 11/11/18 15:59 Dose: 30 mg Fentanyl (Sublimaze) 25 mcg IVPUSH Q6H PRN PRN Reason: Abdominal Pain Last Admin: 11/10/18 23:54 Dose: 25 mcg Furosemide (Lasix) 40 mg PO DAILY [facility] Last Admin: 11/12/18 07:38 Dose: 40 mg Gabapentin (Neurontin) 100 mg PO TID [facility] Last Admin: 11/12/18 07:38 Dose: 100 mg Sodium Chloride (Normal Saline) 1,000 mls @ 100 mls/hr IV ASDIRECTED [facility] Last Admin: 11/12/18 09:45 Dose: 100 mls/hr Insulin Human Lispro (Humalog) 0 unit SUBCUT 0800,1200,1730,2000 [facility]; Protocol Last Admin: 11/12/18 07:40 Dose: Not Given Losartan Potassium (Cozaar) 100 mg PO DAILY [facility] Last Admin: 11/12/18 07:36 Dose: 100 mg Ptom Bupropion Hcl [Wellbutrin Xl] 300 Mg 300 mg PO DAILY [facility] Last Admin: 11/12/18 07:35 Dose: 300 mg Ptom Diltiazem Hcl [Cartia Xt] 240 Mg) 240 mg PO DAILY [facility] Last Admin: 11/12/18 07:37 Dose: 240 mg Ptom Sertraline (50 Mg Tab) 50 mg PO BEDTIME [facility] Last Admin: 11/11/18 20:18 Dose: 50 mg Ondansetron HCl (Zofran Odt) 8 mg PO Q6H PRN PRN Reason: nausea, able to take PO Last Admin: 11/11/18 04:14 Dose: 8 mg Pantoprazole Sodium (Protonix Iv) 40 mg IVPUSH BID [facility] Last Admin: 11/12/18 07:31 Dose: 40 mg Potassium Chloride (Klor-Con 10) 10 meq PO DAILY [facility] Last Admin: 11/12/18 07:37 Dose: 10 meq Temazepam (Restoril) 15 mg PO BEDTIME PRN PRN Reason: Sleep Last Admin: 11/10/18 22:40 Dose: 15 mg Discontinued Medications Barium Sulfate (Readi-Cat 2) 900 ml PO ONETIME ONE Stop: 11/10/18 17:20 Last Admin: 11/10/18 19:13 Dose: 450 ml Sodium Chloride (Normal Saline) 1,000 mls @ 75 mls/hr IV ASDIRECTED [facility] Last Admin: 11/11/18 07:07 Dose: 75 mls/hr Insulin Human Lispro (Humalog) 0 unit SUBCUT QIDACANDBED [facility]; Protocol Last Admin: 11/11/18 14:03 Dose: Not Given Iopamidol (Isovue-370 (76%)) 100 ml IVPUSH ONETIME ONE Stop: 11/10/18 17:20 Last Admin: 11/10/18 19:13 Dose: 100 ml Sertraline HCl (Zoloft) 50 mg PO BEDTIME [facility] Temazepam (Restoril) 15 mg PO BEDTIME PRN PRN Reason: Sleep - Exam General: Alert, Oriented HEENT: Mucous Membr. Moist/[place] Neck: Supple Lungs: Normal Respiratory Effort, [place] Cardiovascular: Irregular Rhythm GI/Abdominal Exam: Normal Bowel Sounds, Soft, Non-Tender Extremities: Normal Inspection, No Pedal Edema Skin: Warm, Dry Wound/Incisions: Other (abdominal incision is healing well) Neurological: No New Focal Deficit - Problem List & Annotations (1) Abdominal pain SNOMED Code(s): 80840512 Code(s): R10.9 - UNSPECIFIED ABDOMINAL PAIN Status: Acute Priority: High Current Visit: Yes Qualifiers: Abdominal location: upper abdomen, unspecified Qualified Code(s): R10.10 - Upper abdominal pain, unspecified (2) Seroma SNOMED Code(s): 311991889 Code(s): [id number] - Status: Acute Priority: High Current Visit: Yes - Problem List Review Problem List Initiated/Reviewed/Updated: Yes - My Orders Last 24 Hours: My Active Orders 11/12/18 08:59 Patient Status [ADT] Routine 11/12/18 09:15 Sodium Chloride 0.9% [Normal Saline] 1,000 ml IV ASDIRECTED 11/12/18 Lunch Consistent Carbohydrate Diet (Diabetic) [Consistent Carbohydrate Diet] [DIET] 11/13/18 05:11 BASIC METABOLIC PANEL,BMP [CHEM] AM C-REACTIVE PROTEIN [CHEM] AM CBC WITH AUTO DIFF [HEME] AM - Assessment Assessment:: Abdominal Pain Seroma - Plan Plan:: Patient continues to complain of pain today, upper quadrants. Feels bloated. CT scan of abdomen done last evening shows a seroma. Has been afebrile. Abdominal incision is clean, healing well. Bowel sounds active. Does still have nausea, tolerating liquids fairly well. Abdomen is slightly distended, tender in the upper quads. Bowel sounds active. Labs noted on admit with WBC of 8.6, hemoglobin 11.5. Creatinine 1.3. CRP 3.1. Bacteria noted in urine. Will stop IV fluids. Continue 1 gm of Rocephin. Repeat labs in am. 11-12-2018 Patient is feeling better today, states less pain. She is up and ambulating short distances, has more concerns with back pain with ambulation than with abdominal discomfort. Feels less bloated. Did have low grade temp 99.5. Tolerating oral intake. labs noted this am, creatinine up to 3.1. WBC 7.0, CRP 3.0, hemoglobin 9.3. Will restart IV fluids as did recently have CT with contrast as well. Hold Lasix at this time, monitor weight and edema. Obtain occult bloods x3. Repeat labs in am.
[2018-11-12] MEDS: cefTRIAXone 1 GM Vial IVPUSH SCH (16:18)
[2018-11-12] MEDS: Enoxaparin 30 MG/0.3 ML Syringe SUBCUT SCH (16:18)
[2018-11-12] MEDS: SERTRALINE 50 MG PO SCH (19:46)
[2018-11-12 21:22] VITALS: BP 108/78; PULSE 68
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
== END 2018-11-13 00:30 | DRG 683 ==
LOC: CC.FCMC 14:33 → CC.MS 14:33 → UNDOADMOB 15:31 → CC.MS 15:31 → OBSVTOIN 11-12 08:59
PROVIDERS: ADMIT Family Medicine; ATTEND Family Medicine
DX: N17.9 Acute kidney failure, unspecified (principal); J44.1 Chronic obstructive pulmonary disease with (acute) exacerbation; R10.9 Unspecified abdominal pain; L76.34 Postprocedural seroma of skin and subcutaneous tissue following other procedure; M50.90 Cervical disc disorder, unspecified, unspecified cervical region; J44.9 Chronic obstructive pulmonary disease, unspecified; T14.8XXA Other injury of unspecified body region, initial encounter; M54.9 Dorsalgia, unspecified; F32.9 Major depressive disorder, single episode, unspecified; K21.9 Gastro-esophageal reflux disease without esophagitis; I12.9 Hypertensive chronic kidney disease with stage 1 through stage 4 chronic kidney disease, or unspecified chronic kidney disease; E11.22 Type 2 diabetes mellitus with diabetic chronic kidney disease; N18.9 Chronic kidney disease, unspecified; G47.00 Insomnia, unspecified; M48.061 Spinal stenosis, lumbar region without neurogenic claudication; Z77.090 Contact with and (suspected) exposure to asbestos; Z88.8 Allergy status to other drugs, medicaments and biological substances; Z91.048 Other nonmedicinal substance allergy status; Z79.82 Long term (current) use of aspirin; Z79.4 Long term (current) use of insulin; Z79.899 Other long term (current) drug therapy
CPT/HCPCS: 36415 ×2; 74022; 74177; 80048; 80053; 81001; 82150; 82962 ×6; 85025 ×2; 86140 ×2; 87086; 96361 ×2; 96372 ×2; 96374; 96375; 96376 ×3; 99220; 99225; A9270 ×29; C9113 ×4; G0378 ×2; J0696 ×2; J1650 ×2; J1815; J3010 ×2; J7030 ×2; Q9967; 51702

== ENCOUNTER 2019-04-21 08:54 | Emergency (ER) | payer MEDICARE, OTHER ==
[2019-04-21] MEDS ORDERED: Ondansetron 4 MG/2 ML SDV ONE (09:10)
[2019-04-21] MEDS ORDERED: Ondansetron 4 MG/2 ML SDV IVPUSH ONE ×2 (09:24→12:06)
[2019-04-21] MEDS ORDERED: Sodium Chloride 0.9% 1,000 ML IV SCH (09:30)
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
[2019-04-21 12:15] VITALS: BP 176/79; PULSE 97
== END 2019-04-21 12:25 ==
LOC: CC.ED 08:54
DX: I11.0 Hypertensive heart disease with heart failure (principal); I50.23 Acute on chronic systolic (congestive) heart failure; E11.9 Type 2 diabetes mellitus without complications; Z88.8 Allergy status to other drugs, medicaments and biological substances; Z88.5 Allergy status to narcotic agent; Z79.899 Other long term (current) drug therapy; Z79.82 Long term (current) use of aspirin; Z79.4 Long term (current) use of insulin
CPT/HCPCS: 36415; 71046; 74019; 80053; 81001; 82150; 83690; 83880; 85025; 85379; 86140; 96361; 96374; 96376; 99284; 99285-25; J2405; J7030

== ENCOUNTER 2019-06-13 16:45 | Inpatient (IN) | payer MEDICARE, OTHER ==
[2019-06-13] MEDS ORDERED: Albuterol/Ipratropium 3.0-0.5 MG/3 ML Neb Soln NEB ONE (17:06)
[2019-06-13] MEDS ORDERED: methylPREDNISolone Sodium Succinate 125 MG/2 ML SDV IVPUSH ONE (17:08)
--- NOTE | 2019-06-13 17:14 | EDM.PDOC ---
ED HPI GENERAL MEDICAL PROBLEM - General Chief Complaint: Respiratory Problem Stated Complaint: cough Time Seen by Provider: 06/13/19 17:03 Source of Information: Reports: Patient History Limitations: Reports: No Limitations - History of Present Illness INITIAL COMMENTS - FREE TEXT/NARRATIVE: Patient to the emergency department complaint of increasing shortness of breath as well as fever and chills off and on since Saturday. The patient advises that she has had a productive cough with yellow-green sputum as well as for the past 2 days she has not felt like eating or drinking and has lost about 7 pounds. The patient advised that today she started having diarrhea. The patient denies any ear pain she denies any unusual neck, back pain or stiffness she denies any sore throat she denies any chest pain she denies any abdominal pain other than she does have nausea and vomiting and again is starting to have diarrhea. The patient also advises that she has had fever and chills off and on as well as myalgia. There is no rash Onset: Gradual Duration: Day(s): (6 days) Location: Denies: Chest Quality: Reports: Ache Severity: Moderate Improves with: Reports: None Worsens with: Reports: None Associated Symptoms: Reports: Cough, cough w sputum, Fever/Chills, Loss of Appetite, Nausea/Vomiting, Shortness of Breath, Weakness. 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 (see below) (none) Epigastric Pain Score (Numeric/FACES): 8 - Related Data Allergies Allergy/AdvReac Type Severity Reaction Status Date / Time lisinopril Allergy Rash Verified 06/13/19 17:20 oxycodone [From Percocet] Allergy Itching Verified 06/13/19 17:20 paper tape Allergy Rash Uncoded 05/18/19 10:21 Home Meds: Home Meds Pantoprazole [ProTONIX] 40 mg PO DAILY 45 Days tab.cr 11/26/13 [Rx] Aspirin 81 mg PO DAILY 11/05/16 [History] Allopurinol [Zyloprim] 100 mg PO DAILY 04/21/17 [History] Gabapentin [Neurontin] 100 mg PO TID 05/14/17 [History] buPROPion HCl [Wellbutrin Xl] 300 mg PO DAILY 05/14/17 [History] Sertraline [Zoloft] 50 mg PO BEDTIME #30 tablet 06/28/17 [Rx] Potassium Chloride [Klor-Con 10] 10 meq PO DAILY 07/21/17 [History] Temazepam [Restoril] 15 mg PO BEDTIME PRN #30 cap 11/26/17 [Rx] Insulin Aspart [NovoLOG] 18 - 20 units SQ TID 06/25/18 [History] Insulin Detemir [Levemir] 22 unit SUBCUT BEDTIME 06/25/18 [History] Diltiazem HCl [Cartia Xt] 240 mg PO DAILY 04/21/19 [History] Losartan [Cozaar] 50 mg PO DAILY 04/21/19 [History] amLODIPine [Norvasc] 5 mg PO DAILY 04/21/19 [History] carvediloL [Coreg] 18.75 mg PO BIDMEALS 04/21/19 [History] metOLazone [Zaroxolyn] 5 mg PO MOWEFR 05/11/19 [History] ALPRAZolam [Xanax] 0.5 mg PO BEDTIME PRN 06/13/19 [History] Albuterol/Ipratropium [DuoNeb 3.0-0.5 MG/3 ML] 3 ml NEB QID PRN 06/13/19 [ History] Bumetanide 1 mg PO BID 06/13/19 [History] Ferrous Sulfate [Iron] 325 mg PO DAILY 06/13/19 [History] Meclizine HCl 25 mg PO TID PRN 06/13/19 [History] Ocutabs 1 tab PO DAILY 06/13/19 [History] Ondansetron [Zofran Odt] 8 mg PO Q6H PRN 06/13/19 [History] Past Medical History HEENT History: Reports: Sinusitis Cardiovascular History: Reports: CAD, Heart Failure, Hypertension Respiratory History: Reports: Bronchitis, Recurrent Gastrointestinal History: Reports: Other (See Below) Other Gastrointestinal History: perforated sigmoid colon Genitourinary History: Reports: Other (See Below) Other Genitourinary History: hs of surgery on kidney, pt unaware of why Musculoskeletal History: Reports: Osteoarthritis Psychiatric History: Reports: Anxiety, Depression Endocrine/Metabolic History: Reports: Diabetes, Type II Hematologic History: Reports: None - Past Surgical History Cardiovascular Surgical History: Reports: Carotid Stents GI Surgical History: Reports: Appendectomy, Colonoscopy, Colostomy, Hernia, Abdominal, Hernia Repair/Other, Lysis of Adhesions, Polypectomy, Other (See Below) Other GI Surgeries/Procedures: REVISION OF COLOSTOMY Neurological Surgical History: Reports: Other (See Below) Musculoskeletal Surgical History: Reports: Hip Replacement, Knee Replacement Oncologic Surgical History: Reports: None Dermatological Surgical History: Reports: None Social & Family History - Family History Family Medical History: Noncontributory Cardiac: Reports: CAD, Heart Failure, Hypertension Neurological: Reports: Cerebral Aneurysms - Caffeine Use Caffeine Use: Reports: Coffee - Sexual History Sexual History: Reports: None - Living Situation & Occupation Living situation: Reports: , Single, with Significant Other Occupation: Employed ED ROS GENERAL - Review of Systems Review Of Systems: See Below Constitutional: Reports: Fever, Chills, Weakness, Fatigue HEENT: Reports: No Symptoms. Denies: Ear Pain, Sinus Problem, Throat Pain Respiratory: Reports: Shortness of Breath, Wheezing, Cough, Sputum Cardiovascular: Denies: Chest Pain Endocrine: Denies: Polyuria GI/Abdominal: Reports: Diarrhea, Nausea, Vomiting. Denies: Abdominal Pain, Constipation, Distension : Reports: No Symptoms Musculoskeletal: Reports: Muscle Pain Skin: Denies: Bruising, Rash, Erythema Neurological: Denies: Dizziness, Headache, Trouble Speaking, Difficulty Walking , Change in Speech, Gait Disturbance Psychiatric: Reports: No Symptoms ED EXAM, GENERAL - Physical Exam Exam: See Below Exam Limited By: No Limitations General Appearance: Alert, WD/WN Ears: Normal External Exam, Normal Canal, Hearing Grossly Normal, Normal TMs Ear Exam: Bilateral Ear: Auricle Normal, Canal Normal, TM normal Nose: Normal Inspection, Normal Mucosa, No Blood Throat/Mouth: Normal Inspection, Normal Lips, Normal Oropharynx, Normal Voice, No Airway Compromise Head: Atraumatic, Normocephalic Neck: Normal Inspection, Supple, Non-Tender, Full Range of Motion Respiratory/Chest: No Respiratory Distress, No Accessory Muscle Use, Chest Non- Tender, Wheezing. No: Lungs Clear Cardiovascular: Normal Peripheral Pulses, Regular Rate, Rhythm, No Edema Peripheral Pulses: 2+: Radial (L), Radial (R) GI/Abdominal: Soft, Non-Tender Back Exam: Normal Inspection, Full Range of Motion Extremities: Normal Inspection, Normal Range of Motion, Non-Tender, No Pedal Edema, Normal Capillary Refill Neurological: Alert, Oriented, Normal Cognition, Normal Gait Psychiatric: Normal Affect, Normal Mood Skin Exam: Warm, Dry, Intact, Normal Color, No Rash Course - Vital Signs Text/Narrative:: The patient was evaluated in the emergency department the CBC is essentially negative, general chemistries shows some chronic renal sufficiency, CRP is elevated. Urinalysis is negative. Chest x-ray does show pneumonia there also seems to be a right lower lobe effusion. The patient's alkaline phosphatase is elevated which brings up a very suspicious concern as the patient does not appear to have any type of biliary obstruction, other pathologies will need to be ruled out at some point. However, the patient's can be treated for pneumonia she will be admitted and additional testing will be planned for later. The patient was given Rocephin 2 g IV in the emergency department as well as Zithromax 500 mg IV. She is also given a hand-held nebulizer treatment of DuoNeb. The patient was given Solu-Medrol 125 mg IV for wheezing. Again, the patient will be admitted and repeat labs will be obtained in the morning. Last Recorded V/S: Last Vital Signs Temp 37.6 C 06/13/19 17:12 Pulse 91 06/13/19 17:12 Resp 20 06/13/19 17:12 BP 180/82 H 06/13/19 17:12 Pulse Ox 94 L 06/13/19 17:12 - Orders/Labs/Meds Orders: Active Orders 24 hr Category Date Time Status RT Aerosol Therapy [RC] ASDIRECTED Care 06/13/19 17:06 Active Chest 2V [CR] Stat Exams 06/13/19 17:04 Taken Sodium Chloride 0.9% [Normal Saline] 1,000 ml Med 06/13/19 17:15 Active IV ASDIRECTED Medication Orders Sodium Chloride (Normal Saline) 1,000 mls @ 125 mls/hr IV ASDIRECTED GILLIAN Last Admin: 06/13/19 17:47 Dose: 125 mls/hr Labs: Laboratory Tests 06/13/19 06/13/19 06/13/19 Range/Units 17:05 17:15 17:15 WBC 7.9 (5.0-10.0) 10^3/uL RBC 4.06 (4.00-5.50) 10^6/uL Hgb 12.7 (12.0-16.0) g/dL Hct 38.0 (37.0-47.0) % MCV 93.6 (82.0-94.0) fL MCH 31.3 (27.0-32.0) pg MCHC 33.4 (33.0-38.0) g/dL RDW Coeff of Taniya 14.2 (11.0-15.0) % Plt Count 265 (150-400) 10^3/uL Neut % (Auto) 65.2 (35-85) % Lymph % (Auto) 22.2 (10-55) % Granite % (Auto) 9.8 (0-16) % Eos % (Auto) 2.4 (0-5) % Baso % (Auto) 0.4 (0-3) % Neut # (Auto) 5.14 (1.80-7.00) 10^3/uL Lymph # (Auto) 1.75 (1.00-4.80) 10^3/uL Granite # (Auto) 0.77 (0.00-0.80) 10^3/uL Eos # (Auto) 0.19 (0.00-0.45) 10^3/uL Baso # (Auto) 0.03 10^3/uL Sodium 138 (136-145) mEq/L Potassium 4.2 (3.5-5.0) mEq/L Chloride 101 (98-106) mEq/L Carbon Dioxide 27 (21-32) mmol/L BUN 28 H (7-18) mg/dL Creatinine 1.5 H (0.6-1.0) mg/dL Est Cr Clr Drug Dosing 33.69 mL/min Estimated GFR (MDRD) 34 L (>=60) mL/min Glucose 166 H (75-99) mg/dL Lactic Acid (0.4-2.0) mmol/L Calcium 9.1 (8.4-10.1) mg/dL Total Bilirubin 0.5 (0.0-1.0) mg/dL AST 18 (15-37) U/L ALT 18 (12-78) U/L Alkaline Phosphatase 201 H (46-116) U/L Troponin I < 0.017 (0.00-0.06) ng/mL C-Reactive Protein 5.4 H (0.2-0.8) mg/dL Total Protein 7.1 (6.4-8.2) g/dL Albumin 3.1 L (3.4-5.0) g/dL Urine Color Yellow (YELLOW) Urine Appearance Clear (CLEAR) Urine pH 6.5 (4.5-8.0) Ur Specific [place] 1.020 (1.003-1.020) Urine Protein >=300 H (NEGATIVE) mg/dL Urine Glucose (UA) Negative (NEGATIVE) mg/dL Urine Ketones Negative (NEGATIVE) mg/dL Urine Occult Blood Small H (NEGATIVE) Urine Nitrite Negative (NEGATIVE) Urine Bilirubin Negative (NEGATIVE) Urine Urobilinogen 1.0 (0.2-1.0) EU/dL Ur Leukocyte Esterase Negative (NEGATIVE) Urine RBC 0-5 (0-5) /HPF Urine WBC 0-5 (0-5) /HPF Ur Epithelial Cells Moderate H (NOT SEEN) /HPF Urine Bacteria Few H (NOT SEEN) /HPF 06/13/19 Range/Units 17:15 WBC (5.0-10.0) 10^3/uL RBC (4.00-5.50) 10^6/uL Hgb (12.0-16.0) g/dL Hct (37.0-47.0) % MCV (82.0-94.0) fL MCH (27.0-32.0) pg MCHC (33.0-38.0) g/dL RDW Coeff of Taniya (11.0-15.0) % Plt Count (150-400) 10^3/uL Neut % (Auto) (35-85) % Lymph % (Auto) (10-55) % Granite % (Auto) (0-16) % Eos % (Auto) (0-5) % Baso % (Auto) (0-3) % Neut # (Auto) (1.80-7.00) 10^3/uL Lymph # (Auto) (1.00-4.80) 10^3/uL Granite # (Auto) (0.00-0.80) 10^3/uL Eos # (Auto) (0.00-0.45) 10^3/uL Baso # (Auto) 10^3/uL Sodium (136-145) mEq/L Potassium (3.5-5.0) mEq/L Chloride (98-106) mEq/L Carbon Dioxide (21-32) mmol/L BUN (7-18) mg/dL Creatinine (0.6-1.0) mg/dL Est Cr Clr Drug Dosing mL/min Estimated GFR (MDRD) (>=60) mL/min Glucose (75-99) mg/dL Lactic Acid 0.8 (0.4-2.0) mmol/L Calcium (8.4-10.1) mg/dL Total Bilirubin (0.0-1.0) mg/dL AST (15-37) U/L ALT (12-78) U/L Alkaline Phosphatase (46-116) U/L Troponin I (0.00-0.06) ng/mL C-Reactive Protein (0.2-0.8) mg/dL Total Protein (6.4-8.2) g/dL Albumin (3.4-5.0) g/dL Urine Color (YELLOW) Urine Appearance (CLEAR) Urine pH (4.5-8.0) Ur Specific [place] (1.003-1.020) Urine Protein (NEGATIVE) mg/dL Urine Glucose (UA) (NEGATIVE) mg/dL Urine Ketones (NEGATIVE) mg/dL Urine Occult Blood (NEGATIVE) Urine Nitrite (NEGATIVE) Urine Bilirubin (NEGATIVE) Urine Urobilinogen (0.2-1.0) EU/dL Ur Leukocyte Esterase (NEGATIVE) Urine RBC (0-5) /HPF Urine WBC (0-5) /HPF Ur Epithelial Cells (NOT SEEN) /HPF Urine Bacteria (NOT SEEN) /HPF Meds: Medications Generic Name Dose Route Start Last Admin Trade Name Freq PRN Reason Stop Dose Admin Sodium Chloride 1,000 mls @ 125 mls/hr 06/13/19 17:15 06/13/19 17:47 Normal Saline IV 125 mls/hr ASDIRECTED GILLIAN Administration Discontinued Medications Generic Name Dose Route Start Last Admin Trade Name Freq PRN Reason Stop Dose Admin Albuterol/Ipratropium 3 ml 06/13/19 17:06 06/13/19 17:25 Duoneb 3.0-0.5 Mg/3 Ml NEB 06/13/19 17:07 3 ml ONETIME ONE Administration Methylprednisolone Sodium Succinate 125 mg 06/13/19 17:08 06/13/19 17:47 Solu-Medrol IVPUSH 06/13/19 17:09 125 mg ONETIME ONE Administration Departure - Departure Time of Disposition: 18:47 Disposition: Refer to Observation Condition: Good Clinical Impression: Pneumonia, Shortness of breath, Wheezing - Discharge Information *PRESCRIPTION DRUG MONITORING PROGRAM REVIEWED*: Not Applicable *COPY OF PRESCRIPTION DRUG MONITORING REPORT IN PATIENT CORNELIO: Not Applicable Forms: ED Department Discharge Sepsis Event Note - Focused Exam Vital Signs: Vital Signs Temp Pulse Resp BP Pulse Ox 06/13/19 17:12 37.6 C 91 20 180/82 H 94 L Date Exam was Performed: 06/13/19 Time Exam was Performed: 18:43 - Problem List & Annotations (1) Shortness of breath SNOMED Code(s): 414629346 Code(s): R06.02 - SHORTNESS OF BREATH Status: Acute Priority: High (2) Pneumonia SNOMED Code(s): 053941616 Code(s): J18.9 - PNEUMONIA, UNSPECIFIED ORGANISM Status: Acute Priority: High Qualifiers: Pneumonia type: due to unspecified organism Laterality: right (3) Wheezing SNOMED Code(s): 82937865 Code(s): R06.2 - WHEEZING Status: Acute - Problem List Review Problem List Initiated/Reviewed/Updated: Yes - My Orders Last 24 Hours: My Active Orders 06/13/19 17:04 Chest 2V [CR] Stat 06/13/19 17:06 RT Aerosol Therapy [RC] ASDIRECTED 06/13/19 17:15 Sodium Chloride 0.9% [Normal Saline] 1,000 ml IV ASDIRECTED - Assessment/Plan Admission H&P: Please use this note as an admission H&P Last 24 Hours: My Active Orders 06/13/19 17:04 Chest 2V [CR] Stat 06/13/19 17:06 RT Aerosol Therapy [RC] ASDIRECTED 06/13/19 17:15 Sodium Chloride 0.9% [Normal Saline] 1,000 ml IV ASDIRECTED Plan: As above
[2019-06-13] MEDS ORDERED: Sodium Chloride 0.9% 1,000 ML IV SCH (17:15)
[2019-06-13 17:34] LABS: CHLORIDE,CL 101 mEq/L (98-106); SODIUM,NA 138 mEq/L (136-145)
[2019-06-13] MEDS ORDERED: cefTRIAXone 2 GM Vial IVPUSH ONE (18:43)
[2019-06-13] MEDS ORDERED: Azithromycin 500 MG in Sodium Chloride 0.9% 250 ML IV SCH (18:45)
[2019-06-13] MEDS ORDERED: Ondansetron 4 MG Tab.DIS PO PRN ×2 (19:40→20:15)
[2019-06-13] MEDS ORDERED: Temazepam 15 MG Cap PO PRN (19:40)
[2019-06-13] MEDS ORDERED: Sertraline 100 MG Tab PO SCH (20:00)
[2019-06-13] MEDS ORDERED: Bumetanide 1 MG Tab PO SCH (20:00)
[2019-06-13] MEDS ORDERED: Gabapentin 100 MG Cap PO SCH (20:00)
[2019-06-13] MEDS ORDERED: Meclizine 12.5 MG Tab PO PRN (20:14)
[2019-06-13] MEDS ORDERED: ALPRAZolam 0.5 MG Tab.DIS (ODT) PO PRN (20:15)
[2019-06-13] MEDS ORDERED: Insulin Lispro 100 Units/ML 3 ML Vial SUBCUT SCH (20:15)
[2019-06-13] MEDS ORDERED: cefTRIAXone 1 GM Vial ONE (20:52)
[2019-06-13] MEDS: Acetaminophen 325 MG Tab PO PRN (21:15)
[2019-06-13] MEDS: Enoxaparin 40 MG/0.4 ML Syringe SUBCUT SCH (21:18)
[2019-06-13] MEDS: Albuterol/Ipratropium 3.0-0.5 MG/3 ML Neb Soln NEB PRN (21:24)
[2019-06-13] MEDS: Insulin Glargine,Human Rec. Analog 100 Units/ML 3 ML Pen SUBCUT SCH (21:29)
[2019-06-14] MEDS: Sodium Chloride 0.9% 1,000 ML IV SCH (07:42)
[2019-06-14] MEDS: Albuterol/Ipratropium 3.0-0.5 MG/3 ML Neb Soln NEB PRN ×3 (07:59→21:36)
[2019-06-14] MEDS: Ferrous Sulfate 324 MG Tab.EC PO SCH (07:59)
[2019-06-14] MEDS: Beta-Carotene (Vitamin A) w/Vitamin C & E plus Minerals Tab PO SCH (07:59)
[2019-06-14] MEDS: Aspirin 81 MG Tab.Chew PO SCH (07:59)
[2019-06-14] MEDS: Pantoprazole 40 MG Tab.CR PO SCH (08:00)
[2019-06-14] MEDS: AMLODIPINE 5 MG PO SCH (08:01)
[2019-06-14] MEDS: BUPROPION 300 MG PO SCH (08:01)
[2019-06-14] MEDS: DILTIAZEM 240 MG PO SCH (08:01)
[2019-06-14] MEDS: ALLOPURINOL 100 MG PO SCH (08:01)
[2019-06-14] MEDS: BUMETANIDE 1 MG PO SCH ×2 (08:02→11:56)
[2019-06-14] MEDS: Carvedilol 6.25 MG Tab ***OWN MED PO SCH ×2 (08:02→17:41)
[2019-06-14] MEDS: LOSARTAN 50 MG PO SCH (08:02)
[2019-06-14] MEDS: GABAPENTIN 100 MG PO SCH ×3 (08:03→17:41)
[2019-06-14] MEDS: Potassium Chloride 10 MEQ Tab.ER PO SCH (08:03)
[2019-06-14] MEDS: methylPREDNISolone Sodium Succinate 125 MG/2 ML SDV IVPUSH SCH ×2 (08:04→21:33)
[2019-06-14] MEDS: Insulin Lispro 100 Units/ML 3 ML Vial SUBCUT SCH ×3 (08:06→17:42)
--- NOTE | 2019-06-14 12:10 | PCM.PN ---
- General Info Date of Service: 06/14/19 Admission Dx/Problem (Free Text): Pneumonia and shortness of breath, see yesterday's emergency department chart for details Functional Status: Reports: Pain Controlled, Tolerating Diet, Ambulating, Urinating - Review of Systems General: Reports: Fever HEENT: Denies: Ear Pain, Sore Throat Pulmonary: Reports: Shortness of Breath, Cough, Wheezing Cardiovascular: Reports: No Symptoms. Denies: Chest Pain, PND, Edema Gastrointestinal: Reports: No Symptoms. Denies: Abdominal Pain, Nausea, Vomiting Genitourinary: Reports: No Symptoms Musculoskeletal: Reports: No Symptoms. Denies: Neck Pain, Back Pain Skin: Reports: No Symptoms. Denies: Bruising, Rash Neurological: Reports: No Symptoms. Denies: Confusion, Dizziness, Headache Psychiatric: Reports: No Symptoms - Patient Data Vitals - Most Recent: Last Vital Signs Temp 37.4 C 06/14/19 11:47 Pulse 83 06/14/19 11:47 Resp 18 06/14/19 11:47 BP 159/71 H 06/14/19 11:47 Pulse Ox 94 L 06/14/19 11:47 Weight - Most Recent: 102.965 kg I&O - Last 24 Hours: Intake & Output 06/13/19 06/14/19 06/14/19 22:59 06:59 14:59 Intake Total 400 Output Total 600 400 Balance -200 -400 Lab Results Last 24 Hours: Laboratory Results - last 24 hr 06/13/19 06/13/19 06/13/19 Range/Units 17:05 17:15 17:15 WBC 7.9 (5.0-10.0) 10^3/uL RBC 4.06 (4.00-5.50) 10^6/uL Hgb 12.7 (12.0-16.0) g/dL Hct 38.0 (37.0-47.0) % MCV 93.6 (82.0-94.0) fL MCH 31.3 (27.0-32.0) pg MCHC 33.4 (33.0-38.0) g/dL RDW Coeff of Taniya 14.2 (11.0-15.0) % Plt Count 265 (150-400) 10^3/uL Neut % (Auto) 65.2 (35-85) % Lymph % (Auto) 22.2 (10-55) % Kent % (Auto) 9.8 (0-16) % Eos % (Auto) 2.4 (0-5) % Baso % (Auto) 0.4 (0-3) % Neut # (Auto) 5.14 (1.80-7.00) 10^3/uL Lymph # (Auto) 1.75 (1.00-4.80) 10^3/uL Kent # (Auto) 0.77 (0.00-0.80) 10^3/uL Eos # (Auto) 0.19 (0.00-0.45) 10^3/uL Baso # (Auto) 0.03 10^3/uL Sodium 138 (136-145) mEq/L Potassium 4.2 (3.5-5.0) mEq/L Chloride 101 (98-106) mEq/L Carbon Dioxide 27 (21-32) mmol/L BUN 28 H (7-18) mg/dL Creatinine 1.5 H (0.6-1.0) mg/dL Est Cr Clr Drug Dosing 33.69 mL/min Estimated GFR (MDRD) 34 L (>=60) mL/min Glucose 166 H (75-99) mg/dL POC Glucose (75-105) mg/dl Lactic Acid (0.4-2.0) mmol/L Calcium 9.1 (8.4-10.1) mg/dL Total Bilirubin 0.5 (0.0-1.0) mg/dL AST 18 (15-37) U/L ALT 18 (12-78) U/L Alkaline Phosphatase 201 H (46-116) U/L Troponin I < 0.017 (0.00-0.06) ng/mL C-Reactive Protein 5.4 H (0.2-0.8) mg/dL Total Protein 7.1 (6.4-8.2) g/dL Albumin 3.1 L (3.4-5.0) g/dL Urine Color Yellow (YELLOW) Urine Appearance Clear (CLEAR) Urine pH 6.5 (4.5-8.0) Ur Specific Gill 1.020 (1.003-1.020) Urine Protein >=300 H (NEGATIVE) mg/dL Urine Glucose (UA) Negative (NEGATIVE) mg/dL Urine Ketones Negative (NEGATIVE) mg/dL Urine Occult Blood Small H (NEGATIVE) Urine Nitrite Negative (NEGATIVE) Urine Bilirubin Negative (NEGATIVE) Urine Urobilinogen 1.0 (0.2-1.0) EU/dL Ur Leukocyte Esterase Negative (NEGATIVE) Urine RBC 0-5 (0-5) /HPF Urine WBC 0-5 (0-5) /HPF Ur Epithelial Cells Moderate H (NOT SEEN) /HPF Urine Bacteria Few H (NOT SEEN) /HPF 06/13/19 06/13/19 06/14/19 Range/Units 17:15 21:28 07:12 WBC (5.0-10.0) 10^3/uL RBC (4.00-5.50) 10^6/uL Hgb (12.0-16.0) g/dL Hct (37.0-47.0) % MCV (82.0-94.0) fL MCH (27.0-32.0) pg MCHC (33.0-38.0) g/dL RDW Coeff of Taniya (11.0-15.0) % Plt Count (150-400) 10^3/uL Neut % (Auto) (35-85) % Lymph % (Auto) (10-55) % Kent % (Auto) (0-16) % Eos % (Auto) (0-5) % Baso % (Auto) (0-3) % Neut # (Auto) (1.80-7.00) 10^3/uL Lymph # (Auto) (1.00-4.80) 10^3/uL Kent # (Auto) (0.00-0.80) 10^3/uL Eos # (Auto) (0.00-0.45) 10^3/uL Baso # (Auto) 10^3/uL Sodium (136-145) mEq/L Potassium (3.5-5.0) mEq/L Chloride (98-106) mEq/L Carbon Dioxide (21-32) mmol/L BUN (7-18) mg/dL Creatinine (0.6-1.0) mg/dL Est Cr Clr Drug Dosing mL/min Estimated GFR (MDRD) (>=60) mL/min Glucose (75-99) mg/dL POC Glucose 197 H 191 H (75-105) mg/dl Lactic Acid 0.8 (0.4-2.0) mmol/L Calcium (8.4-10.1) mg/dL Total Bilirubin (0.0-1.0) mg/dL AST (15-37) U/L ALT (12-78) U/L Alkaline Phosphatase (46-116) U/L Troponin I (0.00-0.06) ng/mL C-Reactive Protein (0.2-0.8) mg/dL Total Protein (6.4-8.2) g/dL Albumin (3.4-5.0) g/dL Urine Color (YELLOW) Urine Appearance (CLEAR) Urine pH (4.5-8.0) Ur Specific Gill (1.003-1.020) Urine Protein (NEGATIVE) mg/dL Urine Glucose (UA) (NEGATIVE) mg/dL Urine Ketones (NEGATIVE) mg/dL Urine Occult Blood (NEGATIVE) Urine Nitrite (NEGATIVE) Urine Bilirubin (NEGATIVE) Urine Urobilinogen (0.2-1.0) EU/dL Ur Leukocyte Esterase (NEGATIVE) Urine RBC (0-5) /HPF Urine WBC (0-5) /HPF Ur Epithelial Cells (NOT SEEN) /HPF Urine Bacteria (NOT SEEN) /HPF Tony Results Last 24 Hours: Microbiology 06/13/19 17:15 Influenza Type A Antigen Screen - Final Nasal Aspirate, Unspecified NEGATIVE INFLUENZA A VIRUS AG REFERENCE RANGE: NEGATIVE Influenza Type B Antigen Screen - Final NEGATIVE INFLUENZA B VIRUS AG REFERENCE RANGE: NEGATIVE Med Orders - Current: Current Medications Acetaminophen (Tylenol) 650 mg PO Q4H PRN PRN Reason: Pain (Mild 1-3)/fever Last Admin: 06/13/19 21:15 Dose: 650 mg Albuterol/Ipratropium (Duoneb 3.0-0.5 Mg/3 Ml) 3 ml NEB QID PRN PRN Reason: Shortness of Breath Last Admin: 06/14/19 07:59 Dose: 3 ml Allopurinol (Zyloprim) 100 mg PO DAILY [facility] Last Admin: 06/14/19 08:01 Dose: 100 mg Alprazolam (Alprazolam Odt) 0.5 mg PO BEDTIME PRN PRN Reason: Anxiety Aspirin (Aspirin) 81 mg PO DAILY [facility] Last Admin: 06/14/19 07:59 Dose: 81 mg Bumetanide (Bumex) 1 mg PO 0800,1200 [facility] Last Admin: 06/14/19 11:56 Dose: 1 mg Carvedilol (Coreg) 18.75 mg PO BIDMEALS [facility] Last Admin: 06/14/19 08:02 Dose: 18.75 mg Ceftriaxone Sodium (Rocephin) 1 gm IVPUSH Q24H [facility] Enoxaparin Sodium (Lovenox) 40 mg SUBCUT Q24H [facility] Last Admin: 06/13/19 21:18 Dose: 40 mg Ferrous Sulfate (Ferrous Sulfate) 324 mg PO DAILY [facility] Last Admin: 06/14/19 07:59 Dose: 324 mg Gabapentin (Neurontin) 100 mg PO TID@0800,1200,1700 [facility] Last Admin: 06/14/19 11:56 Dose: 100 mg Azithromycin 500 mg/ Sodium (Chloride) 250 mls @ 250 mls/hr IV Q24H [facility] Sodium Chloride (Normal Saline) 1,000 mls @ 60 mls/hr IV ASDIRECTED [facility] Last Admin: 06/14/19 07:42 Dose: 60 mls/hr Insulin Glargine (Lantus Solostar) 22 units SUBCUT BEDTIME [facility] Last Admin: 06/13/19 21:29 Dose: 22 units Insulin Human Lispro (Humalog) 18 unit SUBCUT TID@0800,1200,1730 [facility] Last Admin: 06/14/19 11:56 Dose: 5 units Meclizine HCl (Antivert) 25 mg PO TID PRN PRN Reason: Dizziness Methylprednisolone Sodium Succinate (Solu-Medrol) 40 mg IVPUSH Q12H [facility] Last Admin: 06/14/19 08:04 Dose: 40 mg Metolazone (Zaroxolyn) 5 mg PO MoWeFr@0900 [facility] Multivitamins/Minerals (Prosight) 1 tab PO DAILY [facility] Last Admin: 06/14/19 07:59 Dose: 1 tab Amlodipine 5mg Tab * (Own Med) 1 each PO DAILY [facility] Last Admin: 06/14/19 08:01 Dose: 1 each Bupropion 300 Mg Tab (.Er Own Med) 1 each PO DAILY [facility] Last Admin: 06/14/19 08:01 Dose: 1 each Diltiazem 240 Mg Cap (.Cd Own Med) 1 each PO DAILY [facility] Last Admin: 06/14/19 08:01 Dose: 1 each Losartan 50mg Tab (Own Med) 1 each PO DAILY [facility] Last Admin: 06/14/19 08:02 Dose: 1 each Sertraline 50mg Tab (Pt Own) 50 each PO BEDTIME [facility] Ondansetron HCl (Zofran Odt) 8 mg PO Q6H PRN PRN Reason: Nausea Ondansetron HCl (Zofran Odt) 4 mg PO Q6H PRN PRN Reason: nausea, able to take PO Pantoprazole Sodium (Protonix) 40 mg PO DAILY [facility] Last Admin: 06/14/19 08:00 Dose: 40 mg Potassium Chloride (Klor-Con 10) 10 meq PO DAILY [facility] Last Admin: 06/14/19 08:03 Dose: 10 meq Sertraline HCl (Zoloft) 50 mg PO BEDTIME [facility] Temazepam (Restoril) 15 mg PO BEDTIME PRN PRN Reason: Sleep Discontinued Medications Albuterol/Ipratropium (Duoneb 3.0-0.5 Mg/3 Ml) 3 ml NEB ONETIME ONE Stop: 06/13/19 17:07 Last Admin: 06/13/19 17:25 Dose: 3 ml Bumetanide (Bumex) 1 mg PO BID [facility] Last Admin: 06/13/19 20:00 Dose: Not Given Ceftriaxone Sodium (Rocephin) 2 gm IVPUSH ONETIME ONE Stop: 06/13/19 18:44 Last Admin: 06/13/19 20:44 Dose: 2 gm Ceftriaxone Sodium (Rocephin) Confirm Administered Dose 1 gm .ROUTE .STK-MED ONE Stop: 06/13/19 20:53 Last Admin: 06/13/19 21:10 Dose: Not Given Gabapentin (Neurontin) 100 mg PO TID [facility] Last Admin: 06/13/19 20:00 Dose: Not Given Sodium Chloride (Normal Saline) 1,000 mls @ 125 mls/hr IV ASDIRECTED [facility] Last Admin: 06/13/19 17:47 Dose: 125 mls/hr Azithromycin 500 mg/ Sodium (Chloride) 250 mls @ 250 mls/hr IV Q24H [facility] Last Admin: 06/13/19 20:54 Dose: 250 mls/hr Insulin Human Lispro (Humalog) 18 unit SUBCUT TID [facility] Last Admin: 06/13/19 20:00 Dose: Not Given Methylprednisolone Sodium Succinate (Solu-Medrol) 125 mg IVPUSH ONETIME ONE Stop: 06/13/19 17:09 Last Admin: 06/13/19 17:47 Dose: 125 mg Sertraline HCl (Zoloft) 50 mg PO BEDTIME [facility] Last Admin: 06/13/19 20:00 Dose: Not Given Temazepam (Restoril) 15 mg PO BEDTIME PRN PRN Reason: Sleep - Exam General: Alert, Oriented, Cooperative HEENT: Pupils Equal Neck: Supple, Trachea Midline Lungs: Wheezing (Scattered wheezing throughout expiratory) Cardiovascular: Regular Rate, Regular Rhythm GI/Abdominal Exam: Normal Bowel Sounds, Soft, Non-Tender Back Exam: Normal Inspection, Full Range of Motion Extremities: Normal Inspection, Normal Range of Motion, Non-Tender, No Pedal Edema, Normal Capillary Refill Peripheral Pulses: 2+: Radial (L), Radial (R) Skin: Warm, Dry, Intact Neurological: No New Focal Deficit Psy/Mental Status: Alert, Normal Affect, Normal Mood Sepsis Event Note - Evaluation Sepsis Screening Result: No Definite Risk - Focused Exam Vital Signs: Vital Signs Temp Pulse Pulse Resp BP BP Pulse Ox 06/14/19 11:47 37.4 C 83 18 159/71 H 94 L 06/14/19 08:02 91 168/78 H 06/14/19 08:00 37.1 C 91 18 168/78 H 95 06/14/19 04:00 37.1 C 84 16 149/64 H 94 L 06/14/19 02:11 37.3 C Date Exam was Performed: 06/14/19 Time Exam was Performed: 12:05 - Problem List & Annotations (1) Shortness of breath SNOMED Code(s): 967037937 Code(s): R06.02 - SHORTNESS OF BREATH Status: Acute Priority: High Current Visit: No (2) Pneumonia SNOMED Code(s): 699593368 Code(s): J18.9 - PNEUMONIA, UNSPECIFIED ORGANISM Status: Acute Priority: High Current Visit: No Qualifiers: Pneumonia type: due to Mycoplasma pneumoniae Laterality: right (3) Wheezing SNOMED Code(s): 78609811 Code(s): R06.2 - WHEEZING Status: Acute Current Visit: No - Problem List Review Problem List Initiated/Reviewed/Updated: Yes - My Orders Last 24 Hours: My Active Orders 06/13/19 17:04 Chest 2V [CR] Stat 06/13/19 17:06 RT Aerosol Therapy [RC] .PRN 06/13/19 18:55 Resuscitation Status Routine 06/13/19 19:00 CULTURE BLOOD [BC] Stat 06/13/19 19:05 CULTURE BLOOD [BC] Stat 06/13/19 19:40 Bedrest Bathroom Privileges [RC] .PRN Blood Glucose Check, Bedside [RC] 0730,1130,1700,2100 Cardiac Monitoring [RC] CONTINUOUS Height and Weight [RC] .PRN Intake and Output [RC] 0600,1800 Oxygen Therapy [RC] .PRN Pulse Oximetry [RC] .PRN Vital Signs [RC] 0000,0400,0800,1200,1600,2000 Acetaminophen [Tylenol] 650 mg PO Q4H PRN Albuterol/Ipratropium [DuoNeb 3.0-0.5 MG/3 ML] 3 ml NEB QID PRN Ondansetron [Zofran ODT] 4 mg PO Q6H PRN Sodium Chloride 0.9% [Normal Saline] 1,000 ml IV ASDIRECTED 06/13/19 19:47 Antiembolic Devices [RC] 1000,2200 LEO Hose [Antiembolic Hose] [OM.PC] Routine 06/13/19 20:00 Enoxaparin [Lovenox] 40 mg SUBCUT Q24H 06/13/19 20:09 Patient Status [ADT] Routine 06/13/19 20:14 Meclizine [Antivert] 25 mg PO TID PRN 06/13/19 20:15 ALPRAZolam [Alprazolam ODT] 0.5 mg PO BEDTIME PRN Insulin Glarg,Human.Rec.Analog [LantUS Solostar] 22 units SUBCUT BEDTIME Ondansetron [Zofran ODT] 8 mg PO Q6H PRN 06/13/19 21:43 Temazepam [Restoril] 15 mg PO BEDTIME PRN 06/14/19 08:00 Aspirin 81 mg PO DAILY Beta-Carotene(A) w/C & E/Min [Prosight] 1 tab PO DAILY Bumetanide [Bumex] 1 mg PO 0800,1200 Ferrous Sulfate 324 mg PO DAILY Gabapentin [Neurontin] 100 mg PO TID@0800,1200,1700 Insulin Lispro [HumaLOG] 18 unit SUBCUT TID@0800,1200,1730 Non-Formulary Medication [NF Drug] 1 each PO DAILY Non-Formulary Medication [NF Drug] 1 each PO DAILY Non-Formulary Medication [NF Drug] 1 each PO DAILY Non-Formulary Medication [NF Drug] 1 each PO DAILY Pantoprazole [ProTONIX] 40 mg PO DAILY Potassium Chloride [Klor-Con 10] 10 meq PO DAILY allopurinoL [Zyloprim] 100 mg PO DAILY carvediloL [Coreg] 18.75 mg PO BIDMEALS methylPREDNISolone Sod Succ [Solu-MEDROL] 40 mg IVPUSH Q12H 06/14/19 19:00 Azithromycin [Zithromax] 500 mg Sodium Chloride 0.9% [Normal Saline] 250 ml IV Q24H cefTRIAXone [Rocephin] 1 gm IVPUSH Q24H 06/14/19 20:00 Non-Formulary Medication [NF Drug] 50 each PO BEDTIME Sertraline [Zoloft] 50 mg PO BEDTIME 06/15/19 09:00 metOLazone [Zaroxolyn] 5 mg PO MoWeFr@0900 - Plan Plan:: The patient was evaluated in the hospital this morning, the patient still complains of some shortness of breath and some dyspnea with exertion. The patient continues to have a productive cough with yellow-green sputum. The patient has had a low-grade fever as well. The patient will be kept until at least tomorrow and a disposition will be made whether to make the patient an acute hospital visit or discharge home. The patient will continue her current IV antibiotics as well as Solu-Medrol, her blood sugars are being covered with insulin. The patient advises that she is starting to feel some better however she still feels very ill. The patient's labs will be repeated in the morning. Changes to the treatment plan will be made as needed
[2019-06-14] MEDS: Codeine/guaiFENesin 100-10 MG/5 ML Syrup 5 ML Cup PO PRN (13:47)
[2019-06-14] MEDS: cefTRIAXone 1 GM Vial IVPUSH SCH (18:31)
[2019-06-14] MEDS: Azithromycin 500 MG in Sodium Chloride 0.9% 250 ML IV SCH (18:31)
[2019-06-14] MEDS ORDERED: SERTRALINE 50 MG PO SCH (20:00)
[2019-06-14] MEDS ORDERED: SERTRALINE PO SCH (20:00)
[2019-06-14] MEDS: Insulin Glargine,Human Rec. Analog 100 Units/ML 3 ML Pen SUBCUT SCH (21:32)
[2019-06-14] MEDS: Enoxaparin 40 MG/0.4 ML Syringe SUBCUT SCH (21:32)
[2019-06-14] MEDS: Acetaminophen 325 MG Tab PO PRN (21:35)
[2019-06-14] MEDS: Temazepam 15 MG Cap PO PRN (22:02)
[2019-06-15] MEDS: Sodium Chloride 0.9% 1,000 ML IV SCH ×2 (00:30→17:39)
[2019-06-15] MEDS: Aspirin 81 MG Tab.Chew PO SCH (07:44)
[2019-06-15] MEDS: Beta-Carotene (Vitamin A) w/Vitamin C & E plus Minerals Tab PO SCH (07:44)
[2019-06-15] MEDS: Ferrous Sulfate 324 MG Tab.EC PO SCH (07:44)
[2019-06-15] MEDS: Insulin Lispro 100 Units/ML 3 ML Vial SUBCUT SCH ×3 (07:44→17:07)
[2019-06-15] MEDS: methylPREDNISolone Sodium Succinate 125 MG/2 ML SDV IVPUSH SCH ×2 (07:44→20:34)
[2019-06-15] MEDS: Albuterol/Ipratropium 3.0-0.5 MG/3 ML Neb Soln NEB PRN ×3 (07:47→21:13)
[2019-06-15] MEDS: DILTIAZEM 240 MG PO SCH (07:49)
[2019-06-15] MEDS: LOSARTAN 50 MG PO SCH (07:50)
[2019-06-15] MEDS: Potassium Chloride 10 MEQ Tab.ER PO SCH (07:51)
[2019-06-15] MEDS: Carvedilol 6.25 MG Tab ***OWN MED PO SCH (07:51)
[2019-06-15] MEDS: BUMETANIDE 1 MG PO SCH ×2 (07:52→11:58)
[2019-06-15] MEDS: ALLOPURINOL 100 MG PO SCH (07:52)
[2019-06-15] MEDS: Pantoprazole 40 MG Tab.CR PO SCH (07:52)
[2019-06-15] MEDS: AMLODIPINE 5 MG PO SCH (07:53)
[2019-06-15] MEDS: GABAPENTIN 100 MG PO SCH ×2 (07:53→11:57)
[2019-06-15] MEDS: BUPROPION 300 MG PO SCH (07:53)
[2019-06-15] MEDS ORDERED: METOLAZONE 5 MG PO SCH (09:00)
--- NOTE | 2019-06-15 13:03 | PCM.PN ---
- General Info Date of Service: 06/15/19 Admission Dx/Problem (Free Text): Pneumonia and shortness of breath, see yesterday's emergency department chart for details Functional Status: Reports: Pain Controlled, Tolerating Diet. Denies: Ambulating - Review of Systems General: Reports: Weakness, Fatigue, Malaise, Chills HEENT: Reports: Rhinitis. Denies: Headaches, Sore Throat Pulmonary: Reports: Shortness of Breath, Cough, Wheezing Cardiovascular: Denies: Chest Pain Gastrointestinal: Denies: Abdominal Pain, Nausea, Vomiting Genitourinary: Reports: No Symptoms Musculoskeletal: Reports: No Symptoms Skin: Reports: No Symptoms Neurological: Reports: Weakness - Patient Data Vitals - Most Recent: Last Vital Signs Temp 99 F 06/15/19 12:00 Pulse 80 06/15/19 12:00 Resp 16 06/15/19 12:00 BP 164/88 H 06/15/19 12:00 Pulse Ox 97 06/15/19 12:00 Weight - Most Recent: 227 lb I&O - Last 24 Hours: Intake & Output 06/14/19 06/15/19 06/15/19 22:59 06:59 14:59 Intake Total 600 1100 800 Output Total 500 300 500 Balance 100 800 300 Lab Results Last 24 Hours: Laboratory Results - last 24 hr 06/14/19 06/14/19 06/14/19 Range/Units 11:54 17:28 19:02 WBC (5.0-10.0) 10^3/uL RBC (4.00-5.50) 10^6/uL Hgb (12.0-16.0) g/dL Hct (37.0-47.0) % MCV (82.0-94.0) fL MCH (27.0-32.0) pg MCHC (33.0-38.0) g/dL RDW Coeff of Taniya (11.0-15.0) % Plt Count (150-400) 10^3/uL Neut % (Auto) (35-85) % Lymph % (Auto) (10-55) % [place] % (Auto) (0-16) % Eos % (Auto) (0-5) % Baso % (Auto) (0-3) % Neut # (Auto) (1.80-7.00) 10^3/uL Lymph # (Auto) (1.00-4.80) 10^3/uL [place] # (Auto) (0.00-0.80) 10^3/uL Eos # (Auto) (0.00-0.45) 10^3/uL Baso # (Auto) 10^3/uL Sodium (136-145) mEq/L Potassium (3.5-5.0) mEq/L Chloride (98-106) mEq/L Carbon Dioxide (21-32) mmol/L BUN (7-18) mg/dL Creatinine (0.6-1.0) mg/dL Est Cr Clr Drug Dosing mL/min Estimated GFR (MDRD) (>=60) mL/min Glucose (75-99) mg/dL POC Glucose 220 H 184 H 231 H (75-105) mg/dl Calcium (8.4-10.1) mg/dL C-Reactive Protein (0.2-0.8) mg/dL 06/15/19 06/15/19 06/15/19 Range/Units 06:44 07:10 07:10 WBC 9.6 (5.0-10.0) 10^3/uL RBC 3.92 L (4.00-5.50) 10^6/uL Hgb 12.0 (12.0-16.0) g/dL Hct 36.9 L (37.0-47.0) % MCV 94.1 H (82.0-94.0) fL MCH 30.6 (27.0-32.0) pg MCHC 32.5 L (33.0-38.0) g/dL RDW Coeff of Taniya 14.1 (11.0-15.0) % Plt Count 276 (150-400) 10^3/uL Neut % (Auto) 86.2 H (35-85) % Lymph % (Auto) 11.4 (10-55) % [place] % (Auto) 2.3 (0-16) % Eos % (Auto) 0 (0-5) % Baso % (Auto) 0.1 (0-3) % Neut # (Auto) 8.26 H (1.80-7.00) 10^3/uL Lymph # (Auto) 1.09 (1.00-4.80) 10^3/uL [place] # (Auto) 0.22 (0.00-0.80) 10^3/uL Eos # (Auto) 0.00 (0.00-0.45) 10^3/uL Baso # (Auto) 0.01 10^3/uL Sodium 137 (136-145) mEq/L Potassium 4.4 (3.5-5.0) mEq/L Chloride 102 (98-106) mEq/L Carbon Dioxide 25 (21-32) mmol/L BUN 39 H (7-18) mg/dL Creatinine 1.5 H (0.6-1.0) mg/dL Est Cr Clr Drug Dosing 33.69 mL/min Estimated GFR (MDRD) 34 L (>=60) mL/min Glucose 249 H D (75-99) mg/dL POC Glucose 233 H (75-105) mg/dl Calcium 8.6 (8.4-10.1) mg/dL C-Reactive Protein 2.9 H (0.2-0.8) mg/dL Tony Results Last 24 Hours: Microbiology 06/13/19 19:05 Aerobic Blood Culture - Preliminary Blood - Venous - Lab Draw NO GROWTH AFTER 1 DAY Anaerobic Blood Culture - Preliminary NO GROWTH AFTER 1 DAY 06/13/19 19:00 Aerobic Blood Culture - Preliminary Blood - Venous NO GROWTH AFTER 1 DAY Anaerobic Blood Culture - Preliminary NO GROWTH AFTER 1 DAY Med Orders - Current: Current Medications Acetaminophen (Tylenol) 650 mg PO Q4H PRN PRN Reason: Pain (Mild 1-3)/fever Last Admin: 06/14/19 21:35 Dose: 650 mg Albuterol/Ipratropium (Duoneb 3.0-0.5 Mg/3 Ml) 3 ml NEB QID PRN PRN Reason: Shortness of Breath Last Admin: 06/15/19 07:47 Dose: 3 ml Allopurinol (Zyloprim) 100 mg PO DAILY [facility] Last Admin: 06/15/19 07:52 Dose: 100 mg Alprazolam (Alprazolam Odt) 0.5 mg PO BEDTIME PRN PRN Reason: Anxiety Aspirin (Aspirin) 81 mg PO DAILY [facility] Last Admin: 06/15/19 07:44 Dose: 81 mg Bumetanide (Bumex) 1 mg PO 0800,1200 [facility] Last Admin: 06/15/19 11:58 Dose: 1 mg Carvedilol (Coreg) 18.75 mg PO BIDMEALS [facility] Last Admin: 06/15/19 07:51 Dose: 18.75 mg Ceftriaxone Sodium (Rocephin) 1 gm IVPUSH Q24H [facility] Last Admin: 06/14/19 18:31 Dose: 1 gm Enoxaparin Sodium (Lovenox) 40 mg SUBCUT Q24H [facility] Last Admin: 06/14/19 21:32 Dose: 40 mg Ferrous Sulfate (Ferrous Sulfate) 324 mg PO DAILY [facility] Last Admin: 06/15/19 07:44 Dose: 324 mg Gabapentin (Neurontin) 100 mg PO TID@0800,1200,1700 [facility] Last Admin: 06/15/19 11:57 Dose: 100 mg Guaifenesin/Codeine Phosphate (Robitussin Ac) 5 ml PO Q6H PRN PRN Reason: Cough Last Admin: 06/14/19 13:47 Dose: 5 ml Azithromycin 500 mg/ Sodium (Chloride) 250 mls @ 250 mls/hr IV Q24H [facility] Last Admin: 06/14/19 18:31 Dose: 250 mls/hr Sodium Chloride (Normal Saline) 1,000 mls @ 60 mls/hr IV ASDIRECTED [facility] Last Admin: 06/15/19 00:30 Dose: 60 mls/hr Insulin Glargine (Lantus Solostar) 22 units SUBCUT BEDTIME [facility] Last Admin: 06/14/19 21:32 Dose: 22 units Insulin Human Lispro (Humalog) 18 unit SUBCUT TID@0800,1200,1730 [facility] Last Admin: 06/15/19 11:58 Dose: 5 units Meclizine HCl (Antivert) 25 mg PO TID PRN PRN Reason: Dizziness Methylprednisolone Sodium Succinate (Solu-Medrol) 40 mg IVPUSH Q12H [facility] Last Admin: 06/15/19 07:44 Dose: 40 mg Metolazone (Zaroxolyn) 5 mg PO MoWeFr@0900 [facility] Last Admin: 06/15/19 09:39 Dose: 5 mg Multivitamins/Minerals (Prosight) 1 tab PO DAILY [facility] Last Admin: 06/15/19 07:44 Dose: 1 tab Amlodipine 5mg Tab * (Own Med) 1 each PO DAILY [facility] Last Admin: 06/15/19 07:53 Dose: 1 each Bupropion 300 Mg Tab (.Er Own Med) 1 each PO DAILY [facility] Last Admin: 06/15/19 07:53 Dose: 1 each Diltiazem 240 Mg Cap (.Cd Own Med) 1 each PO DAILY [facility] Last Admin: 06/15/19 07:49 Dose: 1 each Losartan 50mg Tab (Own Med) 1 each PO DAILY [facility] Last Admin: 06/15/19 07:50 Dose: 1 each Sertraline 50mg Tab (Pt Own) 50 each PO BEDTIME [facility] Last Admin: 06/14/19 21:35 Dose: 50 each Ondansetron HCl (Zofran Odt) 8 mg PO Q6H PRN PRN Reason: Nausea Ondansetron HCl (Zofran Odt) 4 mg PO Q6H PRN PRN Reason: nausea, able to take PO Pantoprazole Sodium (Protonix) 40 mg PO DAILY [facility] Last Admin: 06/15/19 07:52 Dose: 40 mg Potassium Chloride (Klor-Con 10) 10 meq PO DAILY [facility] Last Admin: 06/15/19 07:51 Dose: 10 meq Sertraline HCl (Zoloft) 50 mg PO BEDTIME [facility] Last Admin: 06/14/19 21:35 Dose: Not Given Temazepam (Restoril) 15 mg PO BEDTIME PRN PRN Reason: Sleep Last Admin: 06/14/19 22:02 Dose: 15 mg Discontinued Medications Albuterol/Ipratropium (Duoneb 3.0-0.5 Mg/3 Ml) 3 ml NEB ONETIME ONE Stop: 06/13/19 17:07 Last Admin: 06/13/19 17:25 Dose: 3 ml Bumetanide (Bumex) 1 mg PO BID [facility] Last Admin: 06/13/19 20:00 Dose: Not Given Ceftriaxone Sodium (Rocephin) 2 gm IVPUSH ONETIME ONE Stop: 06/13/19 18:44 Last Admin: 06/13/19 20:44 Dose: 2 gm Ceftriaxone Sodium (Rocephin) Confirm Administered Dose 1 gm .ROUTE .STK-MED ONE Stop: 06/13/19 20:53 Last Admin: 06/13/19 21:10 Dose: Not Given Gabapentin (Neurontin) 100 mg PO TID [facility] Last Admin: 06/13/19 20:00 Dose: Not Given Sodium Chloride (Normal Saline) 1,000 mls @ 125 mls/hr IV ASDIRECTED [facility] Last Admin: 06/13/19 17:47 Dose: 125 mls/hr Azithromycin 500 mg/ Sodium (Chloride) 250 mls @ 250 mls/hr IV Q24H [facility] Last Admin: 06/13/19 20:54 Dose: 250 mls/hr Insulin Human Lispro (Humalog) 18 unit SUBCUT TID [facility] Last Admin: 06/13/19 20:00 Dose: Not Given Methylprednisolone Sodium Succinate (Solu-Medrol) 125 mg IVPUSH ONETIME ONE Stop: 06/13/19 17:09 Last Admin: 06/13/19 17:47 Dose: 125 mg Sertraline HCl (Zoloft) 50 mg PO BEDTIME [facility] Last Admin: 06/13/19 20:00 Dose: Not Given Temazepam (Restoril) 15 mg PO BEDTIME PRN PRN Reason: Sleep - Exam General: Alert, Oriented HEENT: Mucous Membr. Moist/[place] Neck: Supple Lungs: Decreased Breath Sounds, Wheezing Cardiovascular: Regular Rate, Regular Rhythm GI/Abdominal Exam: Normal Bowel Sounds, Soft, Non-Tender Extremities: Normal Inspection. No: Pedal Edema Skin: Warm, Dry Neurological: No New Focal Deficit Sepsis Event Note - Evaluation Sepsis Screening Result: No Definite Risk - Focused Exam Vital Signs: Vital Signs Temp Pulse Pulse Resp BP BP Pulse Ox 06/15/19 12:00 99 F 80 16 164/88 H 97 06/15/19 07:54 97.9 F 82 16 155/68 H 95 06/15/19 07:51 82 155/68 H 06/15/19 04:00 98.8 F 83 16 158/62 H 95 Date Exam was Performed: 06/15/19 Time Exam was Performed: 12:56 - Problem List & Annotations (1) Pneumonia SNOMED Code(s): 979855489 Code(s): J18.9 - PNEUMONIA, UNSPECIFIED ORGANISM Status: Acute Priority: High Current Visit: Yes Qualifiers: Pneumonia type: due to other aerobic Gram-negative bacteria Laterality: right Lung location: lower lobe of lung Qualified Code(s): J15.6 - Pneumonia due to other Gram-negative bacteria (2) Chronic kidney disease (CKD) stage G3b/A1, moderately decreased glomerular filtration rate (GFR) between 30-44 mL/min/1.73 square meter and albuminuria creatinine ratio less than 30 mg/g SNOMED Code(s): 294997732, 002384117 Code(s): N18.3 - CHRONIC KIDNEY DISEASE, STAGE 3 (MODERATE) Status: Acute Priority: High Current Visit: Yes - Problem List Review Problem List Initiated/Reviewed/Updated: Yes - My Orders Last 24 Hours: My Active Orders 06/15/19 09:07 Patient Status [ADT] Routine - Assessment Assessment:: RLL Pneumonia CKD, stage 3b - Plan Plan:: The patient was evaluated in the hospital this morning, the patient still complains of some shortness of breath and some dyspnea with exertion. The patient continues to have a productive cough with yellow-green sputum. The patient has had a low-grade fever as well. The patient will be kept until at least tomorrow and a disposition will be made whether to make the patient an acute hospital visit or discharge home. The patient will continue her current IV antibiotics as well as Solu-Medrol, her blood sugars are being covered with insulin. The patient advises that she is starting to feel some better however she still feels very ill. The patient's labs will be repeated in the morning. Changes to the treatment plan will be made as needed 06-15-2019 Patient resting comfortably in bed, cough harsh, dry and frequent. States was expectorating phlegm but more dry now. Notes wheezing yet. Feels weak. Appetite has been good. Blood sugars moderately high, controlling with sliding scale insulin. Afebrile. Systolic blood pressure mildly high. WBC today 9.6. Hemoglobin stable. Blood cultures negative. Creatinine stable at 1.5. CRP 2.9. Will transfer patient to acute inpatient for ongoing IV antibiotics with Zithromax and Rocephin. Continue Solu Medrol. Neb treatments. Encourage ambulation. Repeat labs in am.
[2019-06-15] MEDS ORDERED: Metolazone 5 MG Tab PO SCH (13:56)
[2019-06-15] MEDS ORDERED: Diltiazem 120 MG Cap.CD PO SCH (14:25)
[2019-06-15] MEDS: Gabapentin 100 MG Cap PO SCH (17:06)
[2019-06-15] MEDS: Carvedilol 12.5 MG Tab PO SCH (17:06)
[2019-06-15] MEDS: Azithromycin 500 MG in Sodium Chloride 0.9% 250 ML IV SCH (18:33)
[2019-06-15] MEDS: cefTRIAXone 1 GM Vial IVPUSH SCH (18:34)
[2019-06-15] MEDS: Enoxaparin 40 MG/0.4 ML Syringe SUBCUT SCH (20:32)
[2019-06-15] MEDS: Sertraline 25 MG Tab PO SCH (20:33)
[2019-06-15] MEDS: Insulin Glargine,Human Rec. Analog 100 Units/ML 3 ML Pen SUBCUT SCH (20:35)
[2019-06-15] MEDS: Temazepam 15 MG Cap PO PRN (20:44)
[2019-06-15] MEDS: Codeine/guaiFENesin 100-10 MG/5 ML Syrup 5 ML Cup PO PRN (21:15)
[2019-06-16] MEDS: Carvedilol 12.5 MG Tab PO SCH ×2 (07:30→17:04)
[2019-06-16] MEDS: Ferrous Sulfate 324 MG Tab.EC PO SCH (07:30)
[2019-06-16] MEDS: Aspirin 81 MG Tab.Chew PO SCH (07:30)
[2019-06-16] MEDS: Bumetanide 1 MG Tab PO SCH ×2 (07:31→12:11)
[2019-06-16] MEDS: Pantoprazole 40 MG Tab.CR PO SCH (07:31)
[2019-06-16] MEDS: amLODIPine 10 MG Tab PO SCH (07:31)
[2019-06-16] MEDS: Allopurinol 100 MG Tab PO SCH (07:31)
[2019-06-16] MEDS: buPROPion 150 MG Tab.ER PO SCH (07:31)
[2019-06-16] MEDS: methylPREDNISolone Sodium Succinate 125 MG/2 ML SDV IVPUSH SCH ×2 (07:32→19:26)
[2019-06-16] MEDS: Potassium Chloride 10 MEQ Tab.ER PO SCH (07:32)
[2019-06-16] MEDS: Losartan 25 MG Tab PO SCH (07:32)
[2019-06-16] MEDS: Beta-Carotene (Vitamin A) w/Vitamin C & E plus Minerals Tab PO SCH (07:32)
[2019-06-16] MEDS: Gabapentin 100 MG Cap PO SCH ×3 (07:32→17:04)
[2019-06-16] MEDS: Insulin Lispro 100 Units/ML 3 ML Vial SUBCUT SCH ×3 (07:33→17:05)
[2019-06-16] MEDS ORDERED: Diltiazem 120 MG Cap.CD PO SCH (08:14)
[2019-06-16] MEDS: Albuterol/Ipratropium 3.0-0.5 MG/3 ML Neb Soln NEB SCH ×4 (08:39→19:26)
[2019-06-16] MEDS: Diltiazem 120 MG Cap.CD PO SCH (08:43)
[2019-06-16] MEDS ORDERED: FLU Vacc QS2019-20(6MOS UP)/PF 60 MCG/0.5 ML Vial IM ONE (14:30)
[2019-06-16] MEDS: cefTRIAXone 1 GM Vial IVPUSH SCH (18:15)
[2019-06-16] MEDS: Azithromycin 500 MG in Sodium Chloride 0.9% 250 ML IV SCH (18:15)
[2019-06-16] MEDS: Enoxaparin 40 MG/0.4 ML Syringe SUBCUT SCH (19:26)
[2019-06-16] MEDS: Sertraline 25 MG Tab PO SCH (19:27)
[2019-06-16] MEDS: Insulin Glargine,Human Rec. Analog 100 Units/ML 3 ML Pen SUBCUT SCH (19:37)
--- NOTE | 2019-06-16 19:45 | PCM.PN ---
- General Info Date of Service: 06/16/19 Admission Dx/Problem (Free Text): Pneumonia and shortness of breath, see yesterday's emergency department chart for details Functional Status: Reports: Pain Controlled, Tolerating Diet, Ambulating - Review of Systems General: Reports: Weakness, Fatigue HEENT: Reports: No Symptoms Pulmonary: Reports: Shortness of Breath, Cough, Wheezing Cardiovascular: Denies: Chest Pain, Edema, Lightheadedness Gastrointestinal: Denies: Abdominal Pain, Nausea, Vomiting Genitourinary: Reports: No Symptoms Musculoskeletal: Reports: No Symptoms Skin: Reports: No Symptoms Neurological: Reports: Weakness - Patient Data Vitals - Most Recent: Last Vital Signs Temp 97.8 F 06/16/19 19:05 Pulse 82 06/16/19 19:05 Resp 18 06/16/19 19:05 BP 148/76 H 06/16/19 19:05 Pulse Ox 98 06/16/19 19:05 Weight - Most Recent: 227 lb I&O - Last 24 Hours: Intake & Output 06/16/19 06/16/19 06/16/19 06:59 14:59 22:59 Output Total 400 Balance -400 Lab Results Last 24 Hours: Laboratory Results - last 24 hr 06/15/19 06/16/19 06/16/19 Range/Units 20:29 07:00 07:00 WBC 11.4 H (5.0-10.0) 10^3/uL RBC 3.78 L (4.00-5.50) 10^6/uL Hgb 11.8 L (12.0-16.0) g/dL Hct 35.7 L (37.0-47.0) % MCV 94.4 H (82.0-94.0) fL MCH 31.2 (27.0-32.0) pg MCHC 33.1 (33.0-38.0) g/dL RDW Coeff of Taniya 14.2 (11.0-15.0) % Plt Count 253 (150-400) 10^3/uL Neut % (Auto) 89.4 H (35-85) % Lymph % (Auto) 9.2 L (10-55) % [place] % (Auto) 1.3 (0-16) % Eos % (Auto) 0 (0-5) % Baso % (Auto) 0.1 (0-3) % Neut # (Auto) 10.21 H (1.80-7.00) 10^3/uL Lymph # (Auto) 1.05 (1.00-4.80) 10^3/uL [place] # (Auto) 0.15 (0.00-0.80) 10^3/uL Eos # (Auto) 0.00 (0.00-0.45) 10^3/uL Baso # (Auto) 0.01 10^3/uL Sodium 138 (136-145) mEq/L Potassium 3.9 (3.5-5.0) mEq/L Chloride 103 (98-106) mEq/L Carbon Dioxide 25 (21-32) mmol/L BUN 45 H (7-18) mg/dL Creatinine 1.4 H (0.6-1.0) mg/dL Est Cr Clr Drug Dosing 36.10 mL/min Estimated GFR (MDRD) 37 L (>=60) mL/min Glucose 240 H (75-99) mg/dL POC Glucose 252 H (75-105) mg/dl Calcium 8.7 (8.4-10.1) mg/dL C-Reactive Protein 1.4 H (0.2-0.8) mg/dL 06/16/19 06/16/19 06/16/19 Range/Units 07:26 12:05 17:02 WBC (5.0-10.0) 10^3/uL RBC (4.00-5.50) 10^6/uL Hgb (12.0-16.0) g/dL Hct (37.0-47.0) % MCV (82.0-94.0) fL MCH (27.0-32.0) pg MCHC (33.0-38.0) g/dL RDW Coeff of Taniya (11.0-15.0) % Plt Count (150-400) 10^3/uL Neut % (Auto) (35-85) % Lymph % (Auto) (10-55) % [place] % (Auto) (0-16) % Eos % (Auto) (0-5) % Baso % (Auto) (0-3) % Neut # (Auto) (1.80-7.00) 10^3/uL Lymph # (Auto) (1.00-4.80) 10^3/uL [place] # (Auto) (0.00-0.80) 10^3/uL Eos # (Auto) (0.00-0.45) 10^3/uL Baso # (Auto) 10^3/uL Sodium (136-145) mEq/L Potassium (3.5-5.0) mEq/L Chloride (98-106) mEq/L Carbon Dioxide (21-32) mmol/L BUN (7-18) mg/dL Creatinine (0.6-1.0) mg/dL Est Cr Clr Drug Dosing mL/min Estimated GFR (MDRD) (>=60) mL/min Glucose (75-99) mg/dL POC Glucose 269 H 235 H 287 H (75-105) mg/dl Calcium (8.4-10.1) mg/dL C-Reactive Protein (0.2-0.8) mg/dL /07/02 Range/Units 19:35 WBC (5.0-10.0) 10^3/uL RBC (4.00-5.50) 10^6/uL Hgb (12.0-16.0) g/dL Hct (37.0-47.0) % MCV (82.0-94.0) fL MCH (27.0-32.0) pg MCHC (33.0-38.0) g/dL RDW Coeff of Taniya (11.0-15.0) % Plt Count (150-400) 10^3/uL Neut % (Auto) (35-85) % Lymph % (Auto) (10-55) % [place] % (Auto) (0-16) % Eos % (Auto) (0-5) % Baso % (Auto) (0-3) % Neut # (Auto) (1.80-7.00) 10^3/uL Lymph # (Auto) (1.00-4.80) 10^3/uL [place] # (Auto) (0.00-0.80) 10^3/uL Eos # (Auto) (0.00-0.45) 10^3/uL Baso # (Auto) 10^3/uL Sodium (136-145) mEq/L Potassium (3.5-5.0) mEq/L Chloride (98-106) mEq/L Carbon Dioxide (21-32) mmol/L BUN (7-18) mg/dL Creatinine (0.6-1.0) mg/dL Est Cr Clr Drug Dosing mL/min Estimated GFR (MDRD) (>=60) mL/min Glucose (75-99) mg/dL POC Glucose 341 H (75-105) mg/dl Calcium (8.4-10.1) mg/dL C-Reactive Protein (0.2-0.8) mg/dL Tony Results Last 24 Hours: Microbiology 06/13/19 19:05 Aerobic Blood Culture - Preliminary Blood - Venous - Lab Draw NO GROWTH AFTER 3 DAYS Anaerobic Blood Culture - Preliminary NO GROWTH AFTER 3 DAYS 06/13/19 19:00 Aerobic Blood Culture - Preliminary Blood - Venous NO GROWTH AFTER 3 DAYS Anaerobic Blood Culture - Preliminary NO GROWTH AFTER 3 DAYS Med Orders - Current: Current Medications Acetaminophen (Tylenol) 650 mg PO Q4H PRN PRN Reason: Pain (Mild 1-3)/fever Last Admin: 06/14/19 21:35 Dose: 650 mg Albuterol/Ipratropium (Duoneb 3.0-0.5 Mg/3 Ml) 3 ml NEB QID [facility] Last Admin: 06/16/19 19:26 Dose: 3 ml Allopurinol (Zyloprim) 100 mg PO DAILY [facility] Last Admin: 06/16/19 07:31 Dose: 100 mg Alprazolam (Alprazolam Odt) 0.5 mg PO BEDTIME PRN PRN Reason: Anxiety Amlodipine Besylate (Norvasc) 5 mg PO DAILY [facility] Last Admin: 06/16/19 07:31 Dose: 5 mg Aspirin (Aspirin) 81 mg PO DAILY [facility] Last Admin: 06/16/19 07:30 Dose: 81 mg Bumetanide (Bumex) 1 mg PO 0800,1200 [facility] Last Admin: 06/16/19 12:11 Dose: 1 mg Bupropion HCl (Wellbutrin Xl) 300 mg PO DAILY [facility] Last Admin: 06/16/19 07:31 Dose: 300 mg Carvedilol (Coreg) 18.75 mg PO BIDMEALS [facility] Last Admin: 06/16/19 17:04 Dose: 18.75 mg Ceftriaxone Sodium (Rocephin) 1 gm IVPUSH Q24H [facility] Last Admin: 06/16/19 18:15 Dose: 1 gm Diltiazem HCl (Cardizem Cd) 240 mg PO DAILY [facility] Last Admin: 06/16/19 08:43 Dose: 240 mg Enoxaparin Sodium (Lovenox) 40 mg SUBCUT Q24H [facility] Last Admin: 06/16/19 19:26 Dose: 40 mg Ferrous Sulfate (Ferrous Sulfate) 324 mg PO DAILY [facility] Last Admin: 06/16/19 07:30 Dose: 324 mg Gabapentin (Neurontin) 100 mg PO TID@0800,1200,1700 [facility] Last Admin: 06/16/19 17:04 Dose: 100 mg Guaifenesin/Codeine Phosphate (Robitussin Ac) 5 ml PO Q6H PRN PRN Reason: Cough Last Admin: 06/15/19 21:15 Dose: 5 ml Azithromycin 500 mg/ Sodium (Chloride) 250 mls @ 250 mls/hr IV Q24H [facility] Last Admin: 06/16/19 18:15 Dose: 250 mls/hr Insulin Glargine (Lantus Solostar) 22 units SUBCUT BEDTIME [facility] Last Admin: 06/15/19 20:35 Dose: 22 units Insulin Human Lispro (Humalog) 18 unit SUBCUT TID@0800,1200,1730 [facility] Last Admin: 06/16/19 17:05 Dose: 8 units Losartan Potassium (Cozaar) 50 mg PO DAILY [facility] Last Admin: 06/16/19 07:32 Dose: 50 mg Meclizine HCl (Antivert) 25 mg PO TID PRN PRN Reason: Dizziness Methylprednisolone Sodium Succinate (Solu-Medrol) 62.5 mg IVPUSH Q12H [facility] Last Admin: 06/16/19 19:26 Dose: 62.5 mg Metolazone (Zaroxolyn) 5 mg PO MoWeFr@0900 [facility] Multivitamins/Minerals (Prosight) 1 tab PO DAILY [facility] Last Admin: 06/16/19 07:32 Dose: 1 tab Ondansetron HCl (Zofran Odt) 8 mg PO Q6H PRN PRN Reason: Nausea Ondansetron HCl (Zofran Odt) 4 mg PO Q6H PRN PRN Reason: nausea, able to take PO Pantoprazole Sodium (Protonix) 40 mg PO DAILY [facility] Last Admin: 06/16/19 07:31 Dose: 40 mg Potassium Chloride (Klor-Con 10) 10 meq PO DAILY [facility] Last Admin: 06/16/19 07:32 Dose: 10 meq Sertraline HCl (Zoloft) 50 mg PO BEDTIME [facility] Last Admin: 06/16/19 19:27 Dose: 50 mg Temazepam (Restoril) 15 mg PO BEDTIME PRN PRN Reason: Sleep Last Admin: 06/15/19 20:44 Dose: 15 mg Discontinued Medications Albuterol/Ipratropium (Duoneb 3.0-0.5 Mg/3 Ml) 3 ml NEB ONETIME ONE Stop: 06/13/19 17:07 Last Admin: 06/13/19 17:25 Dose: 3 ml Albuterol/Ipratropium (Duoneb 3.0-0.5 Mg/3 Ml) 3 ml NEB QID PRN PRN Reason: Shortness of Breath Last Admin: 06/15/19 21:13 Dose: 3 ml Allopurinol (Zyloprim) 100 mg PO DAILY [facility] Last Admin: 06/15/19 07:52 Dose: 100 mg Bumetanide (Bumex) 1 mg PO BID [facility] Last Admin: 06/13/19 20:00 Dose: Not Given Bumetanide (Bumex) 1 mg PO 0800,1200 [facility] Last Admin: 06/15/19 11:58 Dose: 1 mg Carvedilol (Coreg) 18.75 mg PO BIDMEALS [facility] Last Admin: 06/15/19 07:51 Dose: 18.75 mg Ceftriaxone Sodium (Rocephin) 2 gm IVPUSH ONETIME ONE Stop: 06/13/19 18:44 Last Admin: 06/13/19 20:44 Dose: 2 gm Ceftriaxone Sodium (Rocephin) Confirm Administered Dose 1 gm .ROUTE .STK-MED ONE Stop: 06/13/19 20:53 Last Admin: 06/13/19 21:10 Dose: Not Given Diltiazem HCl (Cardizem Cd) 240 mg PO DAILY [facility] Last Admin: 06/16/19 09:04 Dose: Not Given Diltiazem HCl (Cardizem Cd) 240 mg PO DAILY [facility] Gabapentin (Neurontin) 100 mg PO TID [facility] Last Admin: 06/13/19 20:00 Dose: Not Given Gabapentin (Neurontin) 100 mg PO TID@0800,1200,1700 [facility] Last Admin: 06/15/19 11:57 Dose: 100 mg Sodium Chloride (Normal Saline) 1,000 mls @ 125 mls/hr IV ASDIRECTED [facility] Last Admin: 06/13/19 17:47 Dose: 125 mls/hr Azithromycin 500 mg/ Sodium (Chloride) 250 mls @ 250 mls/hr IV Q24H [facility] Last Admin: 06/13/19 20:54 Dose: 250 mls/hr Sodium Chloride (Normal Saline) 1,000 mls @ 60 mls/hr IV ASDIRECTED [facility] Last Admin: 06/15/19 17:39 Dose: 60 mls/hr Insulin Human Lispro (Humalog) 18 unit SUBCUT TID [facility] Last Admin: 06/13/19 20:00 Dose: Not Given Methylprednisolone Sodium Succinate (Solu-Medrol) 125 mg IVPUSH ONETIME ONE Stop: 06/13/19 17:09 Last Admin: 06/13/19 17:47 Dose: 125 mg Methylprednisolone Sodium Succinate (Solu-Medrol) 40 mg IVPUSH Q12H [facility] Last Admin: 06/16/19 07:32 Dose: 40 mg Metolazone (Zaroxolyn) 5 mg PO MoWeFr@0900 [facility] Last Admin: 06/15/19 09:39 Dose: 5 mg Amlodipine 5mg Tab * (Own Med) 1 each PO DAILY [facility] Last Admin: 06/15/19 07:53 Dose: 1 each Bupropion 300 Mg Tab (.Er Own Med) 1 each PO DAILY [facility] Last Admin: 06/15/19 07:53 Dose: 1 each Diltiazem 240 Mg Cap (.Cd Own Med) 1 each PO DAILY [facility] Last Admin: 06/15/19 07:49 Dose: 1 each Losartan 50mg Tab (Own Med) 1 each PO DAILY [facility] Last Admin: 06/15/19 07:50 Dose: 1 each Sertraline 50mg Tab (Pt Own) 50 each PO BEDTIME [facility] Last Admin: 06/14/19 21:35 Dose: 50 each Sertraline HCl (Zoloft) 50 mg PO BEDTIME [facility] Last Admin: 06/13/19 20:00 Dose: Not Given Sertraline HCl (Zoloft) 50 mg PO BEDTIME [facility] Last Admin: 06/14/19 21:35 Dose: Not Given Temazepam (Restoril) 15 mg PO BEDTIME PRN PRN Reason: Sleep - Exam General: Alert, Oriented HEENT: Mucous Membr. Moist/[place] Neck: Supple Lungs: Decreased Breath Sounds, Wheezing Cardiovascular: Regular Rate, Regular Rhythm GI/Abdominal Exam: Normal Bowel Sounds, Soft, Non-Tender Extremities: Normal Inspection, No Pedal Edema Skin: Warm, Dry Neurological: No New Focal Deficit Sepsis Event Note - Evaluation Sepsis Screening Result: No Definite Risk - Focused Exam Vital Signs: Vital Signs Temp Pulse Pulse Resp BP BP Pulse Ox 06/16/19 19:05 97.8 F 82 18 148/76 H 98 06/16/19 17:04 65 153/66 H 06/16/19 15:52 98.5 F 65 20 153/66 H 96 06/16/19 12:00 98.5 F 80 16 144/70 H 98 06/16/19 08:43 78 154/69 H 06/16/19 08:00 98.5 F 78 16 154/69 H 95 Date Exam was Performed: 06/16/19 Time Exam was Performed: 19:38 - Problem List & Annotations (1) Pneumonia SNOMED Code(s): 379577125 Code(s): J18.9 - PNEUMONIA, UNSPECIFIED ORGANISM Status: Acute Priority: High Current Visit: Yes Qualifiers: Pneumonia type: due to other aerobic Gram-negative bacteria Laterality: right Lung location: lower lobe of lung Qualified Code(s): J15.6 - Pneumonia due to other Gram-negative bacteria (2) Chronic kidney disease (CKD) stage G3b/A1, moderately decreased glomerular filtration rate (GFR) between 30-44 mL/min/1.73 square meter and albuminuria creatinine ratio less than 30 mg/g SNOMED Code(s): 312982280, 192391054 Code(s): N18.3 - CHRONIC KIDNEY DISEASE, STAGE 3 (MODERATE) Status: Acute Priority: High Current Visit: Yes - Problem List Review Problem List Initiated/Reviewed/Updated: Yes - My Orders Last 24 Hours: My Active Orders 06/16/19 08:30 Albuterol/Ipratropium [DuoNeb 3.0-0.5 MG/3 ML] 3 ml NEB QID 06/16/19 20:00 methylPREDNISolone Sod Succ [Solu-MEDROL] 62.5 mg IVPUSH Q12H - Assessment Assessment:: RLL Pneumonia CKD, stage 3b - Plan Plan:: The patient was evaluated in the hospital this morning, the patient still complains of some shortness of breath and some dyspnea with exertion. The patient continues to have a productive cough with yellow-green sputum. The patient has had a low-grade fever as well. The patient will be kept until at least tomorrow and a disposition will be made whether to make the patient an acute hospital visit or discharge home. The patient will continue her current IV antibiotics as well as Solu-Medrol, her blood sugars are being covered with insulin. The patient advises that she is starting to feel some better however she still feels very ill. The patient's labs will be repeated in the morning. Changes to the treatment plan will be made as needed 06-15-2019 Patient resting comfortably in bed, cough harsh, dry and frequent. States was expectorating phlegm but more dry now. Notes wheezing yet. Feels weak. Appetite has been good. Blood sugars moderately high, controlling with sliding scale insulin. Afebrile. Systolic blood pressure mildly high. WBC today 9.6. Hemoglobin stable. Blood cultures negative. Creatinine stable at 1.5. CRP 2.9. Will transfer patient to acute inpatient for ongoing IV antibiotics with Zithromax and Rocephin. Continue Solu Medrol. Neb treatments. Encourage ambulation. Repeat labs in am. 06-16-2019 Patient admits to feeling somewhat better today. States cough has diminished some, nonproductive. Still notes wheezing at times. Oxygen sats greater than 94% on room air. Lung sounds diminished with fine expiratory wheezing. Ambulating short distances and tolerating well. Patient tearful today, admits that she feels she needs to consider detention placement as she is unable to care for self and her significant other is unable to further care for her. Does live with her daughter but spends much of the day at home alone. Unable to cook as starts to have back pain shortly after being up. WBC 11.4 today. CRP 1.4. Will continue IV antibiotics. Neb treatments QID. Social service consult for discharge plan.
[2019-06-16] MEDS: Temazepam 15 MG Cap PO PRN (21:37)
[2019-06-16] MEDS: Codeine/guaiFENesin 100-10 MG/5 ML Syrup 5 ML Cup PO PRN (21:45)
[2019-06-17] MEDS: Albuterol/Ipratropium 3.0-0.5 MG/3 ML Neb Soln NEB SCH ×4 (08:08→19:42)
[2019-06-17] MEDS: Carvedilol 12.5 MG Tab PO SCH ×2 (08:10→17:28)
[2019-06-17] MEDS: Potassium Chloride 10 MEQ Tab.ER PO SCH (08:11)
[2019-06-17] MEDS: Bumetanide 1 MG Tab PO SCH ×2 (08:11→11:43)
[2019-06-17] MEDS: buPROPion 150 MG Tab.ER PO SCH (08:11)
[2019-06-17] MEDS: Aspirin 81 MG Tab.Chew PO SCH (08:11)
[2019-06-17] MEDS: Allopurinol 100 MG Tab PO SCH (08:12)
[2019-06-17] MEDS: Gabapentin 100 MG Cap PO SCH ×3 (08:12→17:28)
[2019-06-17] MEDS: amLODIPine 10 MG Tab PO SCH (08:12)
[2019-06-17] MEDS: methylPREDNISolone Sodium Succinate 125 MG/2 ML SDV IVPUSH SCH ×2 (08:12→19:42)
[2019-06-17] MEDS: Ferrous Sulfate 324 MG Tab.EC PO SCH (08:13)
[2019-06-17] MEDS: Diltiazem 120 MG Cap.CD PO SCH (08:13)
[2019-06-17] MEDS: Beta-Carotene (Vitamin A) w/Vitamin C & E plus Minerals Tab PO SCH (08:14)
[2019-06-17] MEDS: Losartan 25 MG Tab PO SCH (08:14)
[2019-06-17] MEDS: Pantoprazole 40 MG Tab.CR PO SCH (08:15)
[2019-06-17] MEDS: Insulin Lispro 100 Units/ML 3 ML Vial SUBCUT SCH ×3 (08:16→17:27)
--- NOTE | 2019-06-17 09:16 | PCM.PN ---
- General Info Date of Service: 06/17/19 Admission Dx/Problem (Free Text): Pneumonia and shortness of breath, see yesterday's emergency department chart for details Functional Status: Reports: Pain Controlled, Tolerating Diet, Ambulating - Review of Systems General: Reports: Weakness, Fatigue, Malaise HEENT: Denies: Sore Throat Pulmonary: Reports: Shortness of Breath, Cough, Wheezing Cardiovascular: Denies: Chest Pain, Edema, Lightheadedness Gastrointestinal: Denies: Abdominal Pain, Nausea, Vomiting Genitourinary: Reports: No Symptoms Musculoskeletal: Reports: No Symptoms Skin: Reports: No Symptoms Neurological: Reports: Weakness - Patient Data Vitals - Most Recent: Last Vital Signs Temp 98.3 F 06/17/19 08:00 Pulse 80 06/17/19 08:13 Resp 18 06/17/19 08:00 BP 152/64 H 06/17/19 08:14 Pulse Ox 97 06/17/19 08:00 Weight - Most Recent: 227 lb Lab Results Last 24 Hours: Laboratory Results - last 24 hr 06/16/19 06/16/19 06/16/19 Range/Units 12:05 17:02 19:35 WBC (5.0-10.0) 10^3/uL RBC (4.00-5.50) 10^6/uL Hgb (12.0-16.0) g/dL Hct (37.0-47.0) % MCV (82.0-94.0) fL MCH (27.0-32.0) pg MCHC (33.0-38.0) g/dL RDW Coeff of Taniya (11.0-15.0) % Plt Count (150-400) 10^3/uL Neut % (Auto) (35-85) % Lymph % (Auto) (10-55) % Hall % (Auto) (0-16) % Eos % (Auto) (0-5) % Baso % (Auto) (0-3) % Neut # (Auto) (1.80-7.00) 10^3/uL Lymph # (Auto) (1.00-4.80) 10^3/uL Hall # (Auto) (0.00-0.80) 10^3/uL Eos # (Auto) (0.00-0.45) 10^3/uL Baso # (Auto) 10^3/uL Sodium (136-145) mEq/L Potassium (3.5-5.0) mEq/L Chloride (98-106) mEq/L Carbon Dioxide (21-32) mmol/L BUN (7-18) mg/dL Creatinine (0.6-1.0) mg/dL Est Cr Clr Drug Dosing mL/min Estimated GFR (MDRD) (>=60) mL/min Glucose (75-99) mg/dL POC Glucose 235 H 287 H 341 H (75-105) mg/dl Calcium (8.4-10.1) mg/dL C-Reactive Protein (0.2-0.8) mg/dL 06/17/19 06/17/19 06/17/19 Range/Units 07:00 07:00 07:52 WBC 12.8 H (5.0-10.0) 10^3/uL RBC 3.75 L (4.00-5.50) 10^6/uL Hgb 11.7 L (12.0-16.0) g/dL Hct 35.0 L (37.0-47.0) % MCV 93.3 (82.0-94.0) fL MCH 31.2 (27.0-32.0) pg MCHC 33.4 (33.0-38.0) g/dL RDW Coeff of Taniya 13.7 (11.0-15.0) % Plt Count 248 (150-400) 10^3/uL Neut % (Auto) 90.1 H (35-85) % Lymph % (Auto) 7.6 L (10-55) % Hall % (Auto) 2.1 (0-16) % Eos % (Auto) 0.1 (0-5) % Baso % (Auto) 0.1 (0-3) % Neut # (Auto) 11.57 H (1.80-7.00) 10^3/uL Lymph # (Auto) 0.97 L (1.00-4.80) 10^3/uL Hall # (Auto) 0.27 (0.00-0.80) 10^3/uL Eos # (Auto) 0.01 (0.00-0.45) 10^3/uL Baso # (Auto) 0.01 10^3/uL Sodium 138 (136-145) mEq/L Potassium 3.9 (3.5-5.0) mEq/L Chloride 103 (98-106) mEq/L Carbon Dioxide 27 (21-32) mmol/L BUN 57 H (7-18) mg/dL Creatinine 1.6 H (0.6-1.0) mg/dL Est Cr Clr Drug Dosing 31.59 mL/min Estimated GFR (MDRD) 32 L (>=60) mL/min Glucose 277 H (75-99) mg/dL POC Glucose 271 H (75-105) mg/dl Calcium 8.8 (8.4-10.1) mg/dL C-Reactive Protein 0.6 (0.2-0.8) mg/dL Tony Results Last 24 Hours: Microbiology 06/13/19 19:05 Aerobic Blood Culture - Preliminary Blood - Venous - Lab Draw NO GROWTH AFTER 3 DAYS Anaerobic Blood Culture - Preliminary NO GROWTH AFTER 3 DAYS 06/13/19 19:00 Aerobic Blood Culture - Preliminary Blood - Venous NO GROWTH AFTER 3 DAYS Anaerobic Blood Culture - Preliminary NO GROWTH AFTER 3 DAYS Med Orders - Current: Current Medications Acetaminophen (Tylenol) 650 mg PO Q4H PRN PRN Reason: Pain (Mild 1-3)/fever Last Admin: 06/14/19 21:35 Dose: 650 mg Albuterol/Ipratropium (Duoneb 3.0-0.5 Mg/3 Ml) 3 ml NEB QID [facility] Last Admin: 06/17/19 08:08 Dose: 3 ml Allopurinol (Zyloprim) 100 mg PO DAILY [facility] Last Admin: 06/17/19 08:12 Dose: 100 mg Alprazolam (Alprazolam Odt) 0.5 mg PO BEDTIME PRN PRN Reason: Anxiety Amlodipine Besylate (Norvasc) 5 mg PO DAILY [facility] Last Admin: 06/17/19 08:12 Dose: 5 mg Aspirin (Aspirin) 81 mg PO DAILY [facility] Last Admin: 06/17/19 08:11 Dose: 81 mg Bumetanide (Bumex) 1 mg PO 0800,1200 [facility] Last Admin: 06/17/19 08:11 Dose: 1 mg Bupropion HCl (Wellbutrin Xl) 300 mg PO DAILY [facility] Last Admin: 06/17/19 08:11 Dose: 300 mg Carvedilol (Coreg) 18.75 mg PO BIDMEALS [facility] Last Admin: 06/17/19 08:10 Dose: 18.75 mg Ceftriaxone Sodium (Rocephin) 1 gm IVPUSH Q24H [facility] Last Admin: 06/16/19 18:15 Dose: 1 gm Diltiazem HCl (Cardizem Cd) 240 mg PO DAILY [facility] Last Admin: 06/17/19 08:13 Dose: 240 mg Enoxaparin Sodium (Lovenox) 40 mg SUBCUT Q24H [facility] Last Admin: 06/16/19 19:26 Dose: 40 mg Ferrous Sulfate (Ferrous Sulfate) 324 mg PO DAILY [facility] Last Admin: 06/17/19 08:13 Dose: 324 mg Gabapentin (Neurontin) 100 mg PO TID@0800,1200,1700 [facility] Last Admin: 06/17/19 08:12 Dose: 100 mg Guaifenesin/Codeine Phosphate (Robitussin Ac) 5 ml PO Q6H PRN PRN Reason: Cough Last Admin: 06/16/19 21:45 Dose: 5 ml Azithromycin 500 mg/ Sodium (Chloride) 250 mls @ 250 mls/hr IV Q24H [facility] Last Admin: 06/16/19 18:15 Dose: 250 mls/hr Insulin Glargine (Lantus Solostar) 22 units SUBCUT BEDTIME [facility] Last Admin: 06/16/19 19:37 Dose: 22 units Insulin Human Lispro (Humalog) 18 unit SUBCUT TID@0800,1200,1730 [facility] Last Admin: 06/17/19 08:16 Dose: 8 units Losartan Potassium (Cozaar) 50 mg PO DAILY [facility] Last Admin: 06/17/19 08:14 Dose: 50 mg Meclizine HCl (Antivert) 25 mg PO TID PRN PRN Reason: Dizziness Methylprednisolone Sodium Succinate (Solu-Medrol) 62.5 mg IVPUSH Q12H [facility] Last Admin: 06/17/19 08:12 Dose: 62.5 mg Metolazone (Zaroxolyn) 5 mg PO MoWeFr@0900 [facility] Last Admin: 06/17/19 08:10 Dose: 5 mg Multivitamins/Minerals (Prosight) 1 tab PO DAILY [facility] Last Admin: 06/17/19 08:14 Dose: 1 tab Ondansetron HCl (Zofran Odt) 8 mg PO Q6H PRN PRN Reason: Nausea Ondansetron HCl (Zofran Odt) 4 mg PO Q6H PRN PRN Reason: nausea, able to take PO Pantoprazole Sodium (Protonix) 40 mg PO DAILY [facility] Last Admin: 06/17/19 08:15 Dose: 40 mg Potassium Chloride (Klor-Con 10) 10 meq PO DAILY [facility] Last Admin: 06/17/19 08:11 Dose: 10 meq Sertraline HCl (Zoloft) 50 mg PO BEDTIME [facility] Last Admin: 06/16/19 19:27 Dose: 50 mg Temazepam (Restoril) 15 mg PO BEDTIME PRN PRN Reason: Sleep Last Admin: 06/16/19 21:37 Dose: 15 mg Discontinued Medications Albuterol/Ipratropium (Duoneb 3.0-0.5 Mg/3 Ml) 3 ml NEB ONETIME ONE Stop: 06/13/19 17:07 Last Admin: 06/13/19 17:25 Dose: 3 ml Albuterol/Ipratropium (Duoneb 3.0-0.5 Mg/3 Ml) 3 ml NEB QID PRN PRN Reason: Shortness of Breath Last Admin: 06/15/19 21:13 Dose: 3 ml Allopurinol (Zyloprim) 100 mg PO DAILY [facility] Last Admin: 06/15/19 07:52 Dose: 100 mg Bumetanide (Bumex) 1 mg PO BID [facility] Last Admin: 06/13/19 20:00 Dose: Not Given Bumetanide (Bumex) 1 mg PO 0800,1200 [facility] Last Admin: 06/15/19 11:58 Dose: 1 mg Carvedilol (Coreg) 18.75 mg PO BIDMEALS [facility] Last Admin: 06/15/19 07:51 Dose: 18.75 mg Ceftriaxone Sodium (Rocephin) 2 gm IVPUSH ONETIME ONE Stop: 06/13/19 18:44 Last Admin: 06/13/19 20:44 Dose: 2 gm Ceftriaxone Sodium (Rocephin) Confirm Administered Dose 1 gm .ROUTE .STK-MED ONE Stop: 06/13/19 20:53 Last Admin: 06/13/19 21:10 Dose: Not Given Diltiazem HCl (Cardizem Cd) 240 mg PO DAILY [facility] Last Admin: 06/16/19 09:04 Dose: Not Given Diltiazem HCl (Cardizem Cd) 240 mg PO DAILY [facility] Gabapentin (Neurontin) 100 mg PO TID [facility] Last Admin: 06/13/19 20:00 Dose: Not Given Gabapentin (Neurontin) 100 mg PO TID@0800,1200,1700 [facility] Last Admin: 06/15/19 11:57 Dose: 100 mg Sodium Chloride (Normal Saline) 1,000 mls @ 125 mls/hr IV ASDIRECTED [facility] Last Admin: 06/13/19 17:47 Dose: 125 mls/hr Azithromycin 500 mg/ Sodium (Chloride) 250 mls @ 250 mls/hr IV Q24H [facility] Last Admin: 06/13/19 20:54 Dose: 250 mls/hr Sodium Chloride (Normal Saline) 1,000 mls @ 60 mls/hr IV ASDIRECTED [facility] Last Admin: 06/15/19 17:39 Dose: 60 mls/hr Insulin Human Lispro (Humalog) 18 unit SUBCUT TID [facility] Last Admin: 06/13/19 20:00 Dose: Not Given Methylprednisolone Sodium Succinate (Solu-Medrol) 125 mg IVPUSH ONETIME ONE Stop: 06/13/19 17:09 Last Admin: 06/13/19 17:47 Dose: 125 mg Methylprednisolone Sodium Succinate (Solu-Medrol) 40 mg IVPUSH Q12H [facility] Last Admin: 06/16/19 07:32 Dose: 40 mg Metolazone (Zaroxolyn) 5 mg PO MoWeFr@0900 [facility] Last Admin: 06/15/19 09:39 Dose: 5 mg Amlodipine 5mg Tab * (Own Med) 1 each PO DAILY [facility] Last Admin: 06/15/19 07:53 Dose: 1 each Bupropion 300 Mg Tab (.Er Own Med) 1 each PO DAILY [facility] Last Admin: 06/15/19 07:53 Dose: 1 each Diltiazem 240 Mg Cap (.Cd Own Med) 1 each PO DAILY [facility] Last Admin: 06/15/19 07:49 Dose: 1 each Losartan 50mg Tab (Own Med) 1 each PO DAILY [facility] Last Admin: 06/15/19 07:50 Dose: 1 each Sertraline 50mg Tab (Pt Own) 50 each PO BEDTIME [facility] Last Admin: 06/14/19 21:35 Dose: 50 each Sertraline HCl (Zoloft) 50 mg PO BEDTIME [facility] Last Admin: 06/13/19 20:00 Dose: Not Given Sertraline HCl (Zoloft) 50 mg PO BEDTIME [facility] Last Admin: 06/14/19 21:35 Dose: Not Given Temazepam (Restoril) 15 mg PO BEDTIME PRN PRN Reason: Sleep - Exam General: Alert, Oriented HEENT: Mucous Membr. Moist/[place] Neck: Supple Lungs: Decreased Breath Sounds, Rhonchi, Wheezing Cardiovascular: Regular Rate, Regular Rhythm GI/Abdominal Exam: Normal Bowel Sounds, Soft, Non-Tender Extremities: Normal Inspection, No Pedal Edema Skin: Warm, Dry Neurological: No New Focal Deficit Sepsis Event Note - Evaluation Sepsis Screening Result: No Definite Risk - Focused Exam Vital Signs: Vital Signs Temp Pulse Pulse Resp BP BP Pulse Ox 06/17/19 08:14 152/64 H 06/17/19 08:13 80 152/64 H 06/17/19 08:12 152/64 H 06/17/19 08:10 80 152/64 H 06/17/19 08:00 98.3 F 80 18 152/64 H 97 06/17/19 03:35 97.4 F 73 20 153/69 H 95 06/16/19 23:24 97.6 F 78 20 150/59 H 98 Date Exam was Performed: 06/17/19 Time Exam was Performed: 09:05 - Problem List & Annotations (1) Pneumonia SNOMED Code(s): 031388099 Code(s): J18.9 - PNEUMONIA, UNSPECIFIED ORGANISM Status: Acute Priority: High Current Visit: Yes Qualifiers: Pneumonia type: due to other aerobic Gram-negative bacteria Laterality: right Lung location: lower lobe of lung Qualified Code(s): J15.6 - Pneumonia due to other Gram-negative bacteria (2) Chronic kidney disease (CKD) stage G3b/A1, moderately decreased glomerular filtration rate (GFR) between 30-44 mL/min/1.73 square meter and albuminuria creatinine ratio less than 30 mg/g SNOMED Code(s): 558153945, 582599177 Code(s): N18.3 - CHRONIC KIDNEY DISEASE, STAGE 3 (MODERATE) Status: Acute Priority: High Current Visit: Yes - Problem List Review Problem List Initiated/Reviewed/Updated: Yes - My Orders Last 24 Hours: My Active Orders 06/16/19 08:30 Albuterol/Ipratropium [DuoNeb 3.0-0.5 MG/3 ML] 3 ml NEB QID 06/16/19 20:00 methylPREDNISolone Sod Succ [Solu-MEDROL] 62.5 mg IVPUSH Q12H - Assessment Assessment:: RLL Pneumonia CKD, stage 3b - Plan Plan:: The patient was evaluated in the hospital this morning, the patient still complains of some shortness of breath and some dyspnea with exertion. The patient continues to have a productive cough with yellow-green sputum. The patient has had a low-grade fever as well. The patient will be kept until at least tomorrow and a disposition will be made whether to make the patient an acute hospital visit or discharge home. The patient will continue her current IV antibiotics as well as Solu-Medrol, her blood sugars are being covered with insulin. The patient advises that she is starting to feel some better however she still feels very ill. The patient's labs will be repeated in the morning. Changes to the treatment plan will be made as needed 06-15-2019 Patient resting comfortably in bed, cough harsh, dry and frequent. States was expectorating phlegm but more dry now. Notes wheezing yet. Feels weak. Appetite has been good. Blood sugars moderately high, controlling with sliding scale insulin. Afebrile. Systolic blood pressure mildly high. WBC today 9.6. Hemoglobin stable. Blood cultures negative. Creatinine stable at 1.5. CRP 2.9. Will transfer patient to acute inpatient for ongoing IV antibiotics with Zithromax and Rocephin. Continue Solu Medrol. Neb treatments. Encourage ambulation. Repeat labs in am. 06-16-2019 Patient admits to feeling somewhat better today. States cough has diminished some, nonproductive. Still notes wheezing at times. Oxygen sats greater than 94% on room air. Lung sounds diminished with fine expiratory wheezing. Ambulating short distances and tolerating well. Patient tearful today, admits that she feels she needs to consider retirement placement as she is unable to care for self and her significant other is unable to further care for her. Does live with her daughter but spends much of the day at home alone. Unable to cook as starts to have back pain shortly after being up. WBC 11.4 today. CRP 1.4. Will continue IV antibiotics. Neb treatments QID. Social service consult for discharge plan. 06-17-2019 Patient is feeling better today. Feels less short of breath, not coughing as much. Still nonproductive. Ambulates short distances and does get short of breath with ambulation. Has only been up to bathroom, encouraged to ambulate in [place]. Lung sounds noted fine expiratory wheezing, rhonchi but much improved since admit. Appetite is good. Did meet with family and social worker assistant yesterday and went well. Patient is satisfied with plan to go to the [facility]. Continue IV antibiotics and neb treatments. Plan for discharge to the retirement tomorrow.
[2019-06-17] MEDS: Azithromycin 500 MG in Sodium Chloride 0.9% 250 ML IV SCH (18:42)
[2019-06-17] MEDS: cefTRIAXone 1 GM Vial IVPUSH SCH (18:42)
[2019-06-17] MEDS: Sertraline 25 MG Tab PO SCH (19:42)
[2019-06-17] MEDS: Enoxaparin 40 MG/0.4 ML Syringe SUBCUT SCH (19:42)
[2019-06-17] MEDS: Insulin Glargine,Human Rec. Analog 100 Units/ML 3 ML Pen SUBCUT SCH (19:44)
[2019-06-17] MEDS: Temazepam 15 MG Cap PO PRN (21:55)
[2019-06-18] MEDS: Beta-Carotene (Vitamin A) w/Vitamin C & E plus Minerals Tab PO SCH (07:29)
[2019-06-18] MEDS: Carvedilol 12.5 MG Tab PO SCH (07:29)
[2019-06-18] MEDS: Ferrous Sulfate 324 MG Tab.EC PO SCH (07:30)
[2019-06-18] MEDS: Pantoprazole 40 MG Tab.CR PO SCH (07:30)
[2019-06-18] MEDS: Gabapentin 100 MG Cap PO SCH (07:30)
[2019-06-18] MEDS: Losartan 25 MG Tab PO SCH (07:31)
[2019-06-18] MEDS: Bumetanide 1 MG Tab PO SCH (07:32)
[2019-06-18] MEDS: buPROPion 150 MG Tab.ER PO SCH (07:32)
[2019-06-18] MEDS: amLODIPine 10 MG Tab PO SCH (07:32)
[2019-06-18] MEDS: Diltiazem 120 MG Cap.CD PO SCH (07:33)
[2019-06-18] MEDS: Potassium Chloride 10 MEQ Tab.ER PO SCH (07:33)
[2019-06-18] MEDS: Aspirin 81 MG Tab.Chew PO SCH (07:34)
[2019-06-18] MEDS: Allopurinol 100 MG Tab PO SCH (07:34)
[2019-06-18] MEDS: methylPREDNISolone Sodium Succinate 125 MG/2 ML SDV IVPUSH SCH (07:35)
[2019-06-18] MEDS: Albuterol/Ipratropium 3.0-0.5 MG/3 ML Neb Soln NEB SCH (07:35)
[2019-06-18 07:36] VITALS: BP 151/70; PULSE 73
[2019-06-18] MEDS: Insulin Lispro 100 Units/ML 3 ML Vial SUBCUT SCH (07:36)
--- NOTE | 2019-06-18 09:22 | PCM.DCSUM1 ---
Discharge Summary - Hospital Course Free Text/Narrative:: Patient presented to ER with complaints of fever, chills, increased shortness of breath and productive cough. Had not been feeling well for several days. Not eating or drinking well, had reported that she had lost 7#. States productive cough of yellowish-green phlegm. Had developed nausea and diarrhea as well. WBC negative. Chest xray shows right lower lobe infiltrate. ADmitted and started on IV Rocephin, Zithromax. Nebs. Steroids. Diagnosis: Stroke: No Modified [place] Scale: No Symptoms at All Modified [place] Scale Score: 0 - Discharge Data Discharge Date: 06/18/19 Discharge Disposition: DC/Tfer to SNF 03 Condition: Good - Referral to Home Health Primary Care Physician: Kelvin Oliveira MD - Discharge Diagnosis/Problem(s) (1) Pneumonia SNOMED Code(s): 526149617 ICD Code: J18.9 - PNEUMONIA, UNSPECIFIED ORGANISM Status: Acute Priority : High Qualifiers: Pneumonia type: due to other aerobic Gram-negative bacteria Laterality: right Lung location: lower lobe of lung Qualified Code(s): J15.6 - Pneumonia due to other Gram-negative bacteria (2) Chronic kidney disease (CKD) stage G3b/A1, moderately decreased glomerular filtration rate (GFR) between 30-44 mL/min/1.73 square meter and albuminuria creatinine ratio less than 30 mg/g SNOMED Code(s): 155929501, 784807345 ICD Code: N18.3 - CHRONIC KIDNEY DISEASE, STAGE 3 (MODERATE) Status: Acute Priority: High - Patient Summary/Data Complications: none Hospital Course: Patient is much improved. Feels less short of breath. Oxygen sats 97% on room air. Lung sounds clear. Is ambulating short distances in the hallways with walker. WBC mildly elevated at 12.8, likely from steroids as CRP also negative. creatinine is 1.6, chronic for patient. Blood sugars 200s. Patient states does feel weak yet. Does have chronic low back pain and admits unable to be very active due to pain. Is concerned about ability to care for self and is alone all through the day while daughter is at work. States unable to prepare meals and worries about her health failing and missing her meds. Has requested [facility] care. Will continue with another 7 days of Ceftin. Continue nebs. - Patient Instructions Diet: Usual Diet as Tolerated Activity: As Tolerated - Discharge Plan *PRESCRIPTION DRUG MONITORING PROGRAM REVIEWED*: Not Applicable *COPY OF PRESCRIPTION DRUG MONITORING REPORT IN PATIENT CORNELIO: Not Applicable Prescriptions/Med Rec: Cefuroxime Axetil [Ceftin] 250 mg PO BID #14 tablet Home Medications: Home Meds Pantoprazole [ProTONIX] 40 mg PO DAILY 45 Days tab.cr 11/26/13 [Rx] Aspirin 81 mg PO DAILY 11/05/16 [History] Allopurinol [Zyloprim] 100 mg PO DAILY 04/21/17 [History] Gabapentin [Neurontin] 100 mg PO TID 05/14/17 [History] buPROPion HCl [Wellbutrin Xl] 300 mg PO DAILY 05/14/17 [History] Sertraline [Zoloft] 50 mg PO BEDTIME #30 tablet 06/28/17 [Rx] Potassium Chloride [Klor-Con 10] 10 meq PO DAILY 07/21/17 [History] Temazepam [Restoril] 15 mg PO BEDTIME PRN #30 cap 11/26/17 [Rx] Insulin Aspart [NovoLOG] 18 - 20 units SQ TID 06/25/18 [History] Insulin Detemir [Levemir] 22 unit SUBCUT BEDTIME 06/25/18 [History] Diltiazem HCl [Cartia Xt] 240 mg PO DAILY 04/21/19 [History] Losartan [Cozaar] 50 mg PO DAILY 04/21/19 [History] amLODIPine [Norvasc] 5 mg PO DAILY 04/21/19 [History] carvediloL [Coreg] 18.75 mg PO BIDMEALS 04/21/19 [History] metOLazone [Zaroxolyn] 5 mg PO MOWEFR 05/11/19 [History] ALPRAZolam [Xanax] 0.5 mg PO BEDTIME PRN 06/13/19 [History] Albuterol/Ipratropium [DuoNeb 3.0-0.5 MG/3 ML] 3 ml NEB QID PRN 06/13/19 [ History] Bumetanide 1 mg PO BID 06/13/19 [History] Ferrous Sulfate [Iron] 325 mg PO DAILY 06/13/19 [History] Meclizine HCl 25 mg PO TID PRN 06/13/19 [History] Ocutabs 1 tab PO DAILY 06/13/19 [History] Ondansetron [Zofran Odt] 8 mg PO Q6H PRN 06/13/19 [History] Cefuroxime Axetil [Ceftin] 250 mg PO BID #14 tablet 06/18/19 [Rx] Patient Handouts: Community-Acquired Pneumonia, Adult Forms: ED Department Discharge Referrals: Kelvin Oliveira MD [Primary Care Provider] - - Discharge Summary/Plan Comment DC Time >30 min.: Yes Discharge Summary/Plan Comment: Discharge to [facility] Time with patient 20 minutes Time for orders 15 minutes Time for documentation 10 minutes - General Info Date of Service: 06/18/19 Admission Dx/Problem (Free Text: Pneumonia and shortness of breath, see yesterday's emergency department chart for details Functional Status: Reports: Pain Controlled, Tolerating Diet, Ambulating - Review of Systems General: Reports: Weakness, Fatigue, Malaise HEENT: Reports: Rhinitis Pulmonary: Reports: Shortness of Breath, Cough, Wheezing Cardiovascular: Denies: Chest Pain, Edema, Lightheadedness Gastrointestinal: Denies: Diarrhea, Nausea, Vomiting Genitourinary: Reports: No Symptoms Musculoskeletal: Reports: Back Pain Skin: Reports: No Symptoms Neurological: Reports: Weakness - Patient Data Vitals - Most Recent: Last Vital Signs Temp 97.8 F 06/18/19 07:43 Pulse 73 06/18/19 07:43 Resp 18 06/18/19 07:43 BP 151/70 H 06/18/19 07:43 Pulse Ox 97 06/18/19 07:43 Weight - Most Recent: 227 lb Lab Results - Last 24 hrs: Laboratory Results - last 24 hr 06/17/19 06/17/19 06/17/19 Range/Units 11:47 17:23 19:47 POC Glucose 248 H 295 H 344 H (75-105) mg/dl 06/18/19 Range/Units 07:29 POC Glucose 335 H (75-105) mg/dl OTILIA Results - Last 24 hrs: Microbiology 06/13/19 19:05 Aerobic Blood Culture - Preliminary Blood - Venous - Lab Draw NO GROWTH AFTER 4 DAYS Anaerobic Blood Culture - Preliminary NO GROWTH AFTER 4 DAYS 06/13/19 19:00 Aerobic Blood Culture - Preliminary Blood - Venous NO GROWTH AFTER 4 DAYS Anaerobic Blood Culture - Preliminary NO GROWTH AFTER 4 DAYS Med Orders - Current: Current Medications Acetaminophen (Tylenol) 650 mg PO Q4H PRN PRN Reason: Pain (Mild 1-3)/fever Last Admin: 06/14/19 21:35 Dose: 650 mg Albuterol/Ipratropium (Duoneb 3.0-0.5 Mg/3 Ml) 3 ml NEB QID [facility] Last Admin: 06/18/19 07:35 Dose: 3 ml Allopurinol (Zyloprim) 100 mg PO DAILY [facility] Last Admin: 06/18/19 07:34 Dose: 100 mg Alprazolam (Alprazolam Odt) 0.5 mg PO BEDTIME PRN PRN Reason: Anxiety Amlodipine Besylate (Norvasc) 5 mg PO DAILY [facility] Last Admin: 06/18/19 07:32 Dose: 5 mg Aspirin (Aspirin) 81 mg PO DAILY [facility] Last Admin: 06/18/19 07:34 Dose: 81 mg Bumetanide (Bumex) 1 mg PO 0800,1200 [facility] Last Admin: 06/18/19 07:32 Dose: 1 mg Bupropion HCl (Wellbutrin Xl) 300 mg PO DAILY [facility] Last Admin: 06/18/19 07:32 Dose: 300 mg Carvedilol (Coreg) 18.75 mg PO BIDMEALS [facility] Last Admin: 06/18/19 07:29 Dose: 18.75 mg Ceftriaxone Sodium (Rocephin) 1 gm IVPUSH Q24H [facility] Last Admin: 06/17/19 18:42 Dose: 1 gm Diltiazem HCl (Cardizem Cd) 240 mg PO DAILY [facility] Last Admin: 06/18/19 07:33 Dose: 240 mg Enoxaparin Sodium (Lovenox) 40 mg SUBCUT Q24H [facility] Last Admin: 06/17/19 19:42 Dose: 40 mg Ferrous Sulfate (Ferrous Sulfate) 324 mg PO DAILY [facility] Last Admin: 06/18/19 07:30 Dose: 324 mg Gabapentin (Neurontin) 100 mg PO TID@0800,1200,1700 [facility] Last Admin: 06/18/19 07:30 Dose: 100 mg Guaifenesin/Codeine Phosphate (Robitussin Ac) 5 ml PO Q6H PRN PRN Reason: Cough Last Admin: 06/16/19 21:45 Dose: 5 ml Azithromycin 500 mg/ Sodium (Chloride) 250 mls @ 250 mls/hr IV Q24H [facility] Last Admin: 06/17/19 18:42 Dose: 250 mls/hr Insulin Glargine (Lantus Solostar) 22 units SUBCUT BEDTIME [facility] Last Admin: 06/17/19 19:44 Dose: 22 units Insulin Human Lispro (Humalog) 18 unit SUBCUT TID@0800,1200,1730 [facility] Last Admin: 06/18/19 07:36 Dose: 18 units Losartan Potassium (Cozaar) 50 mg PO DAILY [facility] Last Admin: 06/18/19 07:31 Dose: 50 mg Meclizine HCl (Antivert) 25 mg PO TID PRN PRN Reason: Dizziness Methylprednisolone Sodium Succinate (Solu-Medrol) 62.5 mg IVPUSH Q12H [facility] Last Admin: 06/18/19 07:35 Dose: 62.5 mg Metolazone (Zaroxolyn) 5 mg PO MoWeFr@0900 [facility] Last Admin: 06/17/19 08:10 Dose: 5 mg Multivitamins/Minerals (Prosight) 1 tab PO DAILY [facility] Last Admin: 06/18/19 07:29 Dose: 1 tab Ondansetron HCl (Zofran Odt) 8 mg PO Q6H PRN PRN Reason: Nausea Ondansetron HCl (Zofran Odt) 4 mg PO Q6H PRN PRN Reason: nausea, able to take PO Pantoprazole Sodium (Protonix) 40 mg PO DAILY [facility] Last Admin: 06/18/19 07:30 Dose: 40 mg Potassium Chloride (Klor-Con 10) 10 meq PO DAILY [facility] Last Admin: 06/18/19 07:33 Dose: 10 meq Sertraline HCl (Zoloft) 50 mg PO BEDTIME [facility] Last Admin: 06/17/19 19:42 Dose: 50 mg Temazepam (Restoril) 15 mg PO BEDTIME PRN PRN Reason: Sleep Last Admin: 06/17/19 21:55 Dose: 15 mg Discontinued Medications Albuterol/Ipratropium (Duoneb 3.0-0.5 Mg/3 Ml) 3 ml NEB ONETIME ONE Stop: 06/13/19 17:07 Last Admin: 06/13/19 17:25 Dose: 3 ml Albuterol/Ipratropium (Duoneb 3.0-0.5 Mg/3 Ml) 3 ml NEB QID PRN PRN Reason: Shortness of Breath Last Admin: 06/15/19 21:13 Dose: 3 ml Allopurinol (Zyloprim) 100 mg PO DAILY [facility] Last Admin: 06/15/19 07:52 Dose: 100 mg Bumetanide (Bumex) 1 mg PO BID [facility] Last Admin: 06/13/19 20:00 Dose: Not Given Bumetanide (Bumex) 1 mg PO 0800,1200 [facility] Last Admin: 06/15/19 11:58 Dose: 1 mg Carvedilol (Coreg) 18.75 mg PO BIDMEALS [facility] Last Admin: 06/15/19 07:51 Dose: 18.75 mg Ceftriaxone Sodium (Rocephin) 2 gm IVPUSH ONETIME ONE Stop: 06/13/19 18:44 Last Admin: 06/13/19 20:44 Dose: 2 gm Ceftriaxone Sodium (Rocephin) Confirm Administered Dose 1 gm .ROUTE .STK-MED ONE Stop: 06/13/19 20:53 Last Admin: 06/13/19 21:10 Dose: Not Given Diltiazem HCl (Cardizem Cd) 240 mg PO DAILY [facility] Last Admin: 06/16/19 09:04 Dose: Not Given Diltiazem HCl (Cardizem Cd) 240 mg PO DAILY [facility] Gabapentin (Neurontin) 100 mg PO TID [facility] Last Admin: 06/13/19 20:00 Dose: Not Given Gabapentin (Neurontin) 100 mg PO TID@0800,1200,1700 [facility] Last Admin: 06/15/19 11:57 Dose: 100 mg Sodium Chloride (Normal Saline) 1,000 mls @ 125 mls/hr IV ASDIRECTED [facility] Last Admin: 06/13/19 17:47 Dose: 125 mls/hr Azithromycin 500 mg/ Sodium (Chloride) 250 mls @ 250 mls/hr IV Q24H [facility] Last Admin: 06/13/19 20:54 Dose: 250 mls/hr Sodium Chloride (Normal Saline) 1,000 mls @ 60 mls/hr IV ASDIRECTED [facility] Last Admin: 06/15/19 17:39 Dose: 60 mls/hr Insulin Human Lispro (Humalog) 18 unit SUBCUT TID [facility] Last Admin: 06/13/19 20:00 Dose: Not Given Methylprednisolone Sodium Succinate (Solu-Medrol) 125 mg IVPUSH ONETIME ONE Stop: 06/13/19 17:09 Last Admin: 06/13/19 17:47 Dose: 125 mg Methylprednisolone Sodium Succinate (Solu-Medrol) 40 mg IVPUSH Q12H [facility] Last Admin: 06/16/19 07:32 Dose: 40 mg Metolazone (Zaroxolyn) 5 mg PO MoWeFr@0900 [facility] Last Admin: 06/15/19 09:39 Dose: 5 mg Amlodipine 5mg Tab * (Own Med) 1 each PO DAILY [facility] Last Admin: 06/15/19 07:53 Dose: 1 each Bupropion 300 Mg Tab (.Er Own Med) 1 each PO DAILY [facility] Last Admin: 06/15/19 07:53 Dose: 1 each Diltiazem 240 Mg Cap (.Cd Own Med) 1 each PO DAILY [facility] Last Admin: 06/15/19 07:49 Dose: 1 each Losartan 50mg Tab (Own Med) 1 each PO DAILY [facility] Last Admin: 06/15/19 07:50 Dose: 1 each Sertraline 50mg Tab (Pt Own) 50 each PO BEDTIME [facility] Last Admin: 06/14/19 21:35 Dose: 50 each Sertraline HCl (Zoloft) 50 mg PO BEDTIME [facility] Last Admin: 06/13/19 20:00 Dose: Not Given Sertraline HCl (Zoloft) 50 mg PO BEDTIME [facility] Last Admin: 06/14/19 21:35 Dose: Not Given Temazepam (Restoril) 15 mg PO BEDTIME PRN PRN Reason: Sleep - Exam General: Reports: Alert, Oriented HEENT: Reports: Mucous Membr. Moist/[place] Neck: Reports: Supple Lungs: Reports: Decreased Breath Sounds GI/Abdominal Exam: Normal Bowel Sounds, Soft, Non-Tender Extremities: Normal Inspection, No Pedal Edema Skin: Reports: Warm, Dry Neurological: Reports: No New Focal Deficit
[2019-06-18] MEDS ORDERED: Docusate Sodium 100 MG Cap PO PRN (10:00)
== END 2019-06-18 10:58 | DRG 178 ==
LOC: CC.ED 16:45 → CC.MS 19:36 → UNDOADMIN 19:36 → UNDOADMOB 19:48 → CC.MS 19:48 → OBSVTOIN 06-15 09:07
PROVIDERS: ADMIT Nurse Practitioner; ATTEND Family Medicine
DX: J18.9 Pneumonia, unspecified organism (principal); J15.6 Pneumonia due to other Gram-negative bacteria; I11.0 Hypertensive heart disease with heart failure; I13.0 Hypertensive heart and chronic kidney disease with heart failure and stage 1 through stage 4 chronic kidney disease, or unspecified chronic kidney disease; N18.3 Chronic kidney disease, stage 3 (moderate); E11.22 Type 2 diabetes mellitus with diabetic chronic kidney disease; I50.9 Heart failure, unspecified; E11.9 Type 2 diabetes mellitus without complications; Z95.828 Presence of other vascular implants and grafts; Z96.649 Presence of unspecified artificial hip joint; Z96.659 Presence of unspecified artificial knee joint; Z88.6 Allergy status to analgesic agent; Z88.8 Allergy status to other drugs, medicaments and biological substances; Z91.048 Other nonmedicinal substance allergy status; I25.10 Atherosclerotic heart disease of native coronary artery without angina pectoris; M19.90 Unspecified osteoarthritis, unspecified site; F41.9 Anxiety disorder, unspecified; F32.9 Major depressive disorder, single episode, unspecified; Z79.82 Long term (current) use of aspirin; Z79.4 Long term (current) use of insulin; Z79.899 Other long term (current) drug therapy; Z90.49 Acquired absence of other specified parts of digestive tract
CPT/HCPCS: 36415; 71046; 80048; 80053; 81001; 82962; 83605; 84484; 85025; 86140; 87040; 87804; 90686; 93005; 93010; 94640; 96361; 96365; 96366; 96372; 96374; 96375; 96376; 99220; 99225; 99285-25; A9270-GY; G0378; J0456; J0696; J1650; J1815; J1815-GY; J2930; J7030; J7050; J7620-GY

== ENCOUNTER 2019-07-01 12:50 | Inpatient (IN) | payer MEDICARE, OTHER ==
[2019-07-01 13:22] LABS: CHLORIDE,CL 100 mEq/L (98-106); SODIUM,NA 134 mEq/L (136-145)
[2019-07-01] MEDS ORDERED: Sodium Chloride 0.9% 10 ML Syringe FLUSH PRN (14:13)
[2019-07-01] MEDS ORDERED: Acetaminophen 325 MG Tab PO PRN (14:13)
[2019-07-01] MEDS ORDERED: Ondansetron 4 MG Tab.DIS PO PRN (14:16)
[2019-07-01] MEDS ORDERED: Albuterol/Ipratropium 3.0-0.5 MG/3 ML Neb Soln NEB PRN (14:16)
[2019-07-01] MEDS: Furosemide 40 MG/4 ML VIAL IVPUSH SCH (14:59)
[2019-07-01] MEDS: Enoxaparin 30 MG/0.3 ML Syringe SUBCUT SCH (15:04)
[2019-07-01] MEDS: Insulin Lispro 100 Units/ML 3 ML Vial SUBCUT SCH (18:11)
[2019-07-01] MEDS: Gabapentin 100 MG Cap PO SCH (19:13)
[2019-07-01] MEDS: Sertraline 100 MG Tab PO SCH (19:13)
[2019-07-01] MEDS: Insulin Glargine,Human Rec. Analog 100 Units/ML 3 ML Pen SUBCUT SCH (19:21)
[2019-07-01] MEDS ORDERED: ALPRAZolam 0.25 MG Tab PO PRN (20:00)
[2019-07-01] MEDS: Temazepam 15 MG Cap PO PRN (22:05)
[2019-07-02] MEDS: Pantoprazole 40 MG Tab.CR PO SCH (06:03)
[2019-07-02] MEDS: Allopurinol 100 MG Tab PO SCH (07:35)
[2019-07-02] MEDS: buPROPion 150 MG Tab.ER PO SCH (07:35)
[2019-07-02] MEDS: Ferrous Sulfate 324 MG Tab.EC PO SCH (07:35)
[2019-07-02] MEDS: Aspirin 81 MG Tab.Chew PO SCH (07:35)
[2019-07-02] MEDS: Diltiazem 120 MG Cap.CD PO SCH (07:35)
[2019-07-02] MEDS: Gabapentin 100 MG Cap PO SCH ×3 (07:36→19:42)
[2019-07-02] MEDS: amLODIPine 10 MG Tab PO SCH (07:36)
[2019-07-02] MEDS: Furosemide 40 MG/4 ML VIAL IVPUSH SCH (07:37)
[2019-07-02] MEDS: Insulin Lispro 100 Units/ML 3 ML Vial SUBCUT SCH ×3 (07:48→17:30)
[2019-07-02] MEDS: Carvedilol 6.25 MG Tab PO SCH ×2 (08:11→17:31)
--- NOTE | 2019-07-02 10:41 | PCM.PN ---
- General Info Date of Service: 07/02/19 Admission Dx/Problem (Free Text): Acute on Chronic Systolic CHF, Class II, stage 3 CKD, stage 4 Functional Status: Reports: Pain Controlled, Tolerating Diet, Ambulating - Review of Systems General: Reports: Weakness, Fatigue, Malaise HEENT: Reports: No Symptoms Pulmonary: Reports: Shortness of Breath. Denies: Cough, Wheezing Cardiovascular: Reports: Edema. Denies: Chest Pain, Lightheadedness Gastrointestinal: Denies: Abdominal Pain, Nausea, Vomiting Genitourinary: Reports: No Symptoms Musculoskeletal: Reports: No Symptoms Skin: Reports: No Symptoms Neurological: Reports: Weakness - Patient Data Vitals - Most Recent: Last Vital Signs Temp 97.8 F 07/02/19 07:34 Pulse 75 07/02/19 08:11 Resp 18 07/02/19 07:34 BP 164/58 H 07/02/19 08:11 Pulse Ox 96 07/02/19 07:34 Weight - Most Recent: 246 lb 0.574 oz I&O - Last 24 Hours: Intake & Output 07/01/19 07/02/19 07/02/19 22:59 06:59 14:59 Intake Total 655 860 Output Total 300 1000 Balance 355 -140 Lab Results Last 24 Hours: Laboratory Results - last 24 hr 07/01/19 07/01/19 07/01/19 Range/Units 12:52 12:52 17:29 WBC 9.3 (5.0-10.0) 10^3/uL RBC 3.16 L (4.00-5.50) 10^6/uL Hgb 9.9 L (12.0-16.0) g/dL Hct 30.5 L (37.0-47.0) % MCV 96.5 H (82.0-94.0) fL MCH 31.3 (27.0-32.0) pg MCHC 32.5 L (33.0-38.0) g/dL RDW Coeff of Taniya 14.5 (11.0-15.0) % Plt Count 211 (150-400) 10^3/uL Neut % (Auto) 65.2 (35-85) % Lymph % (Auto) 21.5 (10-55) % [place] % (Auto) 6.4 (0-16) % Eos % (Auto) 6.0 H (0-5) % Baso % (Auto) 0.9 (0-3) % Neut # (Auto) 6.04 (1.80-7.00) 10^3/uL Lymph # (Auto) 1.99 (1.00-4.80) 10^3/uL [place] # (Auto) 0.59 (0.00-0.80) 10^3/uL Eos # (Auto) 0.56 H (0.00-0.45) 10^3/uL Baso # (Auto) 0.08 10^3/uL Sodium 134 L (136-145) mEq/L Potassium 5.4 H D (3.5-5.0) mEq/L Chloride 100 (98-106) mEq/L Carbon Dioxide 29 (21-32) mmol/L BUN 60 H (7-18) mg/dL Creatinine 2.2 H (0.6-1.0) mg/dL Est Cr Clr Drug Dosing TNP Estimated GFR (MDRD) 22 L (>=60) mL/min Glucose 139 H D (75-99) mg/dL POC Glucose 214 H (75-105) mg/dl Calcium 8.5 (8.4-10.1) mg/dL C-Reactive Protein 3.7 H (0.2-0.8) mg/dL NT-Pro-B Natriuret Pep 4813 H (0-1000) pg/mL 07/01/19 07/02/19 07/02/19 Range/Units 19:20 07:00 07:41 WBC (5.0-10.0) 10^3/uL RBC (4.00-5.50) 10^6/uL Hgb (12.0-16.0) g/dL Hct (37.0-47.0) % MCV (82.0-94.0) fL MCH (27.0-32.0) pg MCHC (33.0-38.0) g/dL RDW Coeff of Taniya (11.0-15.0) % Plt Count (150-400) 10^3/uL Neut % (Auto) (35-85) % Lymph % (Auto) (10-55) % [place] % (Auto) (0-16) % Eos % (Auto) (0-5) % Baso % (Auto) (0-3) % Neut # (Auto) (1.80-7.00) 10^3/uL Lymph # (Auto) (1.00-4.80) 10^3/uL [place] # (Auto) (0.00-0.80) 10^3/uL Eos # (Auto) (0.00-0.45) 10^3/uL Baso # (Auto) 10^3/uL Sodium 135 L (136-145) mEq/L Potassium 5.1 H (3.5-5.0) mEq/L Chloride 100 (98-106) mEq/L Carbon Dioxide 28 (21-32) mmol/L BUN 56 H (7-18) mg/dL Creatinine 2.0 H (0.6-1.0) mg/dL Est Cr Clr Drug Dosing 25.27 Estimated GFR (MDRD) 24 L (>=60) mL/min Glucose 125 H (75-99) mg/dL POC Glucose 204 H 114 H (75-105) mg/dl Calcium 8.8 (8.4-10.1) mg/dL C-Reactive Protein (0.2-0.8) mg/dL NT-Pro-B Natriuret Pep (0-1000) pg/mL Med Orders - Current: Current Medications Acetaminophen (Tylenol) 650 mg PO Q4H PRN PRN Reason: Pain (Mild 1-3)/fever Albuterol/Ipratropium (Duoneb 3.0-0.5 Mg/3 Ml) 3 ml NEB QID PRN PRN Reason: Shortness of Breath Last Admin: 07/02/19 04:31 Dose: 3 ml Allopurinol (Zyloprim) 100 mg PO DAILY [facility] Last Admin: 07/02/19 07:35 Dose: 100 mg Alprazolam (Xanax) 0.5 mg PO BEDTIME PRN PRN Reason: Anxiety Amlodipine Besylate (Norvasc) 5 mg PO DAILY [facility] Last Admin: 07/02/19 07:36 Dose: 5 mg Aspirin (Aspirin) 81 mg PO DAILY [facility] Last Admin: 07/02/19 07:35 Dose: 81 mg Bupropion HCl (Wellbutrin Xl) 300 mg PO DAILY [facility] Last Admin: 07/02/19 07:35 Dose: 300 mg Carvedilol (Coreg) 18.75 mg PO BIDMEALS [facility] Last Admin: 07/02/19 08:11 Dose: 18.75 mg Diltiazem HCl (Cardizem Cd) 240 mg PO DAILY [facility] Last Admin: 07/02/19 07:35 Dose: 240 mg Enoxaparin Sodium (Lovenox) 30 mg SUBCUT Q24H [facility] Last Admin: 07/01/19 15:04 Dose: 30 mg Ferrous Sulfate (Ferrous Sulfate) 324 mg PO DAILY [facility] Last Admin: 07/02/19 07:35 Dose: 324 mg Furosemide (Lasix) 40 mg IVPUSH DAILY [facility] Gabapentin (Neurontin) 100 mg PO TID [facility] Last Admin: 07/02/19 07:36 Dose: 100 mg Insulin Glargine (Lantus Solostar) 15 units SUBCUT BEDTIME [facility] Last Admin: 07/01/19 19:21 Dose: 15 units Insulin Human Lispro (Humalog) 6 - 10 unit SUBCUT TIDMEALS [facility] Last Admin: 07/02/19 07:48 Dose: 6 units Ondansetron HCl (Zofran Odt) 8 mg PO Q6H PRN PRN Reason: Nausea Pantoprazole Sodium (Protonix) 40 mg PO ACBREAKFAST [facility] Last Admin: 07/02/19 06:03 Dose: 40 mg Sertraline HCl (Zoloft) 50 mg PO BEDTIME [facility] Last Admin: 07/01/19 19:13 Dose: 50 mg Sodium Chloride (Saline Flush) 10 ml FLUSH ASDIRECTED PRN PRN Reason: Keep Vein Open Temazepam (Restoril) 15 mg PO BEDTIME PRN PRN Reason: Sleep Last Admin: 07/01/19 22:05 Dose: 15 mg Discontinued Medications Furosemide (Lasix) 40 mg IVPUSH BID@0800,1400 [facility] Last Admin: 07/02/19 07:37 Dose: 40 mg - Exam General: Alert, Oriented HEENT: Mucous Membr. Moist/[place] Neck: Supple Lungs: Normal Respiratory Effort, Crackles (right base) Cardiovascular: Irregular Rhythm GI/Abdominal Exam: Normal Bowel Sounds, Soft, Non-Tender Extremities: Pedal Edema Skin: Warm, Dry Neurological: No New Focal Deficit Sepsis Event Note - Evaluation Sepsis Screening Result: No Definite Risk - Focused Exam Vital Signs: Vital Signs Temp Pulse Pulse Resp BP BP Pulse Ox 07/02/19 08:11 75 164/58 H 07/02/19 07:36 164/58 H 07/02/19 07:35 75 164/58 H 07/02/19 07:34 97.8 F 75 18 164/58 H 96 07/02/19 04:00 97.4 F 66 20 160/63 H 94 L 07/01/19 23:45 97.8 F 66 18 131/50 L 95 Date Exam was Performed: 07/02/19 Time Exam was Performed: 10:36 - Problem List & Annotations (1) Acute exacerbation of CHF (congestive heart failure) SNOMED Code(s): 709119481, 47688073851522 Code(s): I50.9 - HEART FAILURE, UNSPECIFIED Status: Acute Priority: High Current Visit: Yes Qualifiers: Heart failure type: systolic Qualified Code(s): I50.23 - Acute on chronic systolic (congestive) heart failure (2) Chronic kidney disease (CKD) stage G3b/A1, moderately decreased glomerular filtration rate (GFR) between 30-44 mL/min/1.73 square meter and albuminuria creatinine ratio less than 30 mg/g SNOMED Code(s): 366921651, 895062030 Code(s): N18.3 - CHRONIC KIDNEY DISEASE, STAGE 3 (MODERATE) Status: Acute Priority: High Current Visit: Yes (3) Coronary arteriosclerosis, CAD SNOMED Code(s): 24836018 Code(s): I25.10 - ATHSCL HEART DISEASE OF [place] CORONARY ARTERY W/O ANG PCTRS Status: Chronic Priority: Medium Current Visit: Yes (4) Diabetes mellitus type 2 SNOMED Code(s): 15174340 Code(s): E11.9 - TYPE 2 DIABETES MELLITUS WITHOUT COMPLICATIONS Status: Chronic Priority: Medium Current Visit: Yes - Problem List Review Problem List Initiated/Reviewed/Updated: Yes - My Orders Last 24 Hours: My Active Orders 07/03/19 08:00 Furosemide [Lasix] 40 mg IVPUSH DAILY - Assessment Assessment:: Acute on Chronic CHF, class II, stage 3 CKD, stage 4 - Plan Plan:: Patient is feeling much better today. States much less short of breath. Does feel edema has improved. Blood pressure is high this at at 169/58. Potassium is improved from 5.4 to 5.1, Sodium 135. Creatinine is improved to 2.0. Lung sounds do note crackles in right base. Oxygen sat is 96% on room air. Will decrease IV Lasix to daily. Monitor blood pressure closely. Repeat labs in am. Possibly return back to [facility] tomorrow.
[2019-07-02] MEDS: Enoxaparin 30 MG/0.3 ML Syringe SUBCUT SCH (15:33)
[2019-07-02] MEDS: Sertraline 100 MG Tab PO SCH (19:42)
[2019-07-02] MEDS: Insulin Glargine,Human Rec. Analog 100 Units/ML 3 ML Pen SUBCUT SCH (19:54)
[2019-07-02] MEDS: Temazepam 15 MG Cap PO PRN (21:53)
[2019-07-03] MEDS: Pantoprazole 40 MG Tab.CR PO SCH (06:30)
[2019-07-03] MEDS: Gabapentin 100 MG Cap PO SCH ×3 (07:45→19:37)
[2019-07-03] MEDS: Allopurinol 100 MG Tab PO SCH (07:46)
[2019-07-03] MEDS: amLODIPine 10 MG Tab PO SCH (07:46)
[2019-07-03] MEDS: Aspirin 81 MG Tab.Chew PO SCH (07:46)
[2019-07-03] MEDS: Ferrous Sulfate 324 MG Tab.EC PO SCH (07:46)
[2019-07-03] MEDS: buPROPion 150 MG Tab.ER PO SCH (07:46)
[2019-07-03] MEDS: Insulin Lispro 100 Units/ML 3 ML Vial SUBCUT SCH ×3 (07:48→17:37)
[2019-07-03] MEDS ORDERED: Furosemide 40 MG/4 ML VIAL IVPUSH SCH (08:00)
[2019-07-03] MEDS: Diltiazem 120 MG Cap.CD PO SCH (08:14)
[2019-07-03] MEDS: Carvedilol 6.25 MG Tab PO SCH ×2 (08:15→17:36)
--- NOTE | 2019-07-03 09:20 | PCM.PN ---
- General Info Date of Service: 07/03/19 Admission Dx/Problem (Free Text): Acute on Chronic Systolic CHF, Class II, stage 3 CKD, stage 4 Subjective Update: Lucila is a 74 year old female who was admitted to the hospital 07/01/2019 for CHF, CKD and cough. She reports she does feel she is feeling somewhat better. Has had good diuresis with IV lasix. Reports she continues to have loose wet cough, which has been ongoing for some time now. It remains nonproductive. She also c/ o itching to her bilateral ankles. Has been applying lotion without relief. No other complaints this morning. Has been getting up to use the bathroom, but does report she is very winded and fatigued after exertion. Swelling in legs has also improved. Functional Status: Reports: Pain Controlled, Tolerating Diet, Ambulating, Urinating. Denies: New Symptoms - Review of Systems General: Denies: Fever, Weakness, Fatigue HEENT: Reports: No Symptoms Pulmonary: Reports: Shortness of Breath, Cough (wet nonproductive). Denies: Pleuritic Chest Pain, Sputum, Wheezing Cardiovascular: Reports: Dyspnea on Exertion, Orthopnea, Edema (improving). Denies: Chest Pain Gastrointestinal: Reports: No Symptoms Genitourinary: Reports: No Symptoms Musculoskeletal: Reports: No Symptoms Skin: Reports: No Symptoms Neurological: Reports: No Symptoms Psychiatric: Reports: No Symptoms - Patient Data Vitals - Most Recent: Last Vital Signs Temp 97.5 F 07/03/19 07:44 Pulse 62 07/03/19 08:14 Resp 18 07/03/19 07:44 BP 141/64 H 07/03/19 08:14 Pulse Ox 98 07/03/19 07:44 Weight - Most Recent: 243 lb 12.16 oz I&O - Last 24 Hours: Intake & Output 07/02/19 07/03/19 07/03/19 22:59 06:59 14:59 Intake Total 300 200 Output Total 1600 400 Balance -1300 -200 Lab Results Last 24 Hours: Laboratory Results - last 24 hr 07/02/19 07/02/19 07/02/19 Range/Units 11:34 17:29 19:53 Sodium (136-145) mEq/L Potassium (3.5-5.0) mEq/L Chloride (98-106) mEq/L Carbon Dioxide (21-32) mmol/L BUN (7-18) mg/dL Creatinine (0.6-1.0) mg/dL Est Cr Clr Drug Dosing mL/min Estimated GFR (MDRD) (>=60) mL/min Glucose (75-99) mg/dL POC Glucose 98 180 H 167 H (75-105) mg/dl Calcium (8.4-10.1) mg/dL 07/03/19 Range/Units 07:10 Sodium 136 (136-145) mEq/L Potassium 4.7 (3.5-5.0) mEq/L Chloride 101 (98-106) mEq/L Carbon Dioxide 28 (21-32) mmol/L BUN 53 H (7-18) mg/dL Creatinine 1.8 H (0.6-1.0) mg/dL Est Cr Clr Drug Dosing 28.08 mL/min Estimated GFR (MDRD) 28 L (>=60) mL/min Glucose 113 H (75-99) mg/dL POC Glucose (75-105) mg/dl Calcium 8.8 (8.4-10.1) mg/dL Med Orders - Current: Current Medications Acetaminophen (Tylenol) 650 mg PO Q4H PRN PRN Reason: Pain (Mild 1-3)/fever Albuterol/Ipratropium (Duoneb 3.0-0.5 Mg/3 Ml) 3 ml NEB QID PRN PRN Reason: Shortness of Breath Last Admin: 07/02/19 04:31 Dose: 3 ml Allopurinol (Zyloprim) 100 mg PO DAILY [facility] Last Admin: 07/03/19 07:46 Dose: 100 mg Alprazolam (Xanax) 0.5 mg PO BEDTIME PRN PRN Reason: Anxiety Amlodipine Besylate (Norvasc) 5 mg PO DAILY [facility] Last Admin: 07/03/19 07:46 Dose: 5 mg Aspirin (Aspirin) 81 mg PO DAILY [facility] Last Admin: 07/03/19 07:46 Dose: 81 mg Bupropion HCl (Wellbutrin Xl) 300 mg PO DAILY [facility] Last Admin: 07/03/19 07:46 Dose: 300 mg Carvedilol (Coreg) 6.25 mg PO BIDMEALS [facility] Diltiazem HCl (Cardizem Cd) 240 mg PO DAILY [facility] Last Admin: 07/03/19 08:14 Dose: 240 mg Enoxaparin Sodium (Lovenox) 30 mg SUBCUT Q24H [facility] Last Admin: 07/02/19 15:33 Dose: 30 mg Ferrous Sulfate (Ferrous Sulfate) 324 mg PO DAILY [facility] Last Admin: 07/03/19 07:46 Dose: 324 mg Furosemide (Lasix) 40 mg IVPUSH DAILY [facility] Last Admin: 07/03/19 07:47 Dose: 40 mg Gabapentin (Neurontin) 100 mg PO TID [facility] Last Admin: 07/03/19 07:45 Dose: 100 mg Insulin Glargine (Lantus Solostar) 15 units SUBCUT BEDTIME [facility] Last Admin: 07/02/19 19:54 Dose: 15 units Insulin Human Lispro (Humalog) 6 - 10 unit SUBCUT TIDMEALS [facility] Last Admin: 07/03/19 07:48 Dose: Not Given Ondansetron HCl (Zofran Odt) 8 mg PO Q6H PRN PRN Reason: Nausea Pantoprazole Sodium (Protonix) 40 mg PO ACBREAKFAST [facility] Last Admin: 07/03/19 06:30 Dose: 40 mg Sertraline HCl (Zoloft) 50 mg PO BEDTIME [facility] Last Admin: 07/02/19 19:42 Dose: 50 mg Sodium Chloride (Saline Flush) 10 ml FLUSH ASDIRECTED PRN PRN Reason: Keep Vein Open Temazepam (Restoril) 15 mg PO BEDTIME PRN PRN Reason: Sleep Last Admin: 07/02/19 21:53 Dose: 15 mg Discontinued Medications Carvedilol (Coreg) 18.75 mg PO BIDMEALS [facility] Last Admin: 07/03/19 08:15 Dose: Not Given Furosemide (Lasix) 40 mg IVPUSH BID@0800,1400 [facility] Last Admin: 07/02/19 07:37 Dose: 40 mg - Exam Quality Assessment: DVT Prophylaxis. No: Supplemental Oxygen General: Alert, Oriented, No Acute Distress Neck: Supple Lungs: Crackles (bases) Cardiovascular: Regular Rate, Irregular Rhythm, Other (occasional bradycardia) GI/Abdominal Exam: Normal Bowel Sounds, Soft, Non-Tender, No Organomegaly, No Distention, No Abnormal Bruit, No Mass, Pelvis Stable Back Exam: Normal Inspection, Full Range of Motion Extremities: Normal Inspection, Normal Range of Motion, Normal Capillary Refill , Pedal Edema (1+) Skin: Warm, Dry, Intact Neurological: No New Focal Deficit Psy/Mental Status: Alert, Normal Affect, Normal Mood Sepsis Event Note - Evaluation Sepsis Screening Result: No Definite Risk - Focused Exam Vital Signs: Vital Signs Temp Pulse Pulse Resp BP BP Pulse Ox 07/03/19 08:14 62 141/64 H 07/03/19 07:46 141/64 H 07/03/19 07:44 97.5 F 69 18 141/64 H 98 07/03/19 03:11 97.3 F 72 20 155/68 H 97 07/02/19 23:11 96.8 F L 55 L 20 136/47 L 94 L Date Exam was Performed: 07/03/19 Time Exam was Performed: 15:20 - Problem List & Annotations (1) Acute exacerbation of CHF (congestive heart failure) SNOMED Code(s): 515440553, 73124363245125 Code(s): I50.9 - HEART FAILURE, UNSPECIFIED Status: Acute Priority: High Current Visit: Yes Qualifiers: Heart failure type: systolic Qualified Code(s): I50.23 - Acute on chronic systolic (congestive) heart failure (2) Chronic kidney disease (CKD) stage G3b/A1, moderately decreased glomerular filtration rate (GFR) between 30-44 mL/min/1.73 square meter and albuminuria creatinine ratio less than 30 mg/g SNOMED Code(s): 205069635, 815264698 Code(s): N18.3 - CHRONIC KIDNEY DISEASE, STAGE 3 (MODERATE) Status: Acute Priority: High Current Visit: Yes - Problem List Review Problem List Initiated/Reviewed/Updated: Yes - My Orders Last 24 Hours: My Active Orders 07/03/19 17:30 carvediloL [Coreg] 6.25 mg PO BIDMEALS - Assessment Assessment:: Acute on Chronic CHF, class II, stage 3 CKD, stage 4 - Plan Plan:: Patient is feeling much better today. States much less short of breath. Does feel edema has improved. Blood pressure is high this at at 169/58. Potassium is improved from 5.4 to 5.1, Sodium 135. Creatinine is improved to 2.0. Lung sounds do note crackles in right base. Oxygen sat is 96% on room air. Will decrease IV Lasix to daily. Monitor blood pressure closely. Repeat labs in am. Possibly return back to [facility] tomorrow. 07/03/2019 Overall, patient doing well. Does feel shortness of breath has improved some. Does continue to have dyspnea on exertion. Edema has improved and patient's weight is now down 5 lbs since admit. Does continue to have nonproductive wet cough, which she reports she has had for the past 4 wks or so. CXR on admit did show pleural effusion, R > L. Labs are stable this morning. Creatinine improved to 1.8. Potassium normal at 4.7. Will switch patient to 60 mg lasix BID. Stop IV lasix. Will repeat lab work in am, as well as repeat CXR. Patient has been having episodes of bradycardia on telemetry. Will reduce Coreg from 18.75 mg BID to 6.25 mg BID. Will trial hydrocortisone cream to ankles as needed for itching. Do not feel patient is ready for discharge today. Patient will be kept throughout weekend for continued monitoring and diuresis. Anticipate d/c to [facility] on Saturday.
[2019-07-03] MEDS ORDERED: Hydrocortisone 2.5% Crm 30 GM Tube TOP PRN (12:09)
[2019-07-03] MEDS ORDERED: Polyethylene Glycol 3350 Powder 17 GM Packet PO PRN (15:18)
[2019-07-03] MEDS: Enoxaparin 30 MG/0.3 ML Syringe SUBCUT SCH (16:07)
[2019-07-03] MEDS: Furosemide 20 MG Tab PO SCH (16:07)
[2019-07-03] MEDS: Sertraline 100 MG Tab PO SCH (19:36)
[2019-07-03] MEDS: Insulin Glargine,Human Rec. Analog 100 Units/ML 3 ML Pen SUBCUT SCH (19:42)
[2019-07-03] MEDS: Temazepam 15 MG Cap PO PRN (22:44)
[2019-07-04] MEDS: Pantoprazole 40 MG Tab.CR PO SCH (06:58)
[2019-07-04] MEDS: Diltiazem 120 MG Cap.CD PO SCH (08:01)
[2019-07-04] MEDS: Gabapentin 100 MG Cap PO SCH ×3 (08:03→19:37)
[2019-07-04] MEDS: Furosemide 20 MG Tab PO SCH ×2 (08:03→15:54)
[2019-07-04] MEDS: Carvedilol 6.25 MG Tab PO SCH ×2 (08:04→17:29)
[2019-07-04] MEDS: amLODIPine 10 MG Tab PO SCH (08:04)
[2019-07-04] MEDS: Aspirin 81 MG Tab.Chew PO SCH (08:05)
[2019-07-04] MEDS: Ferrous Sulfate 324 MG Tab.EC PO SCH (08:06)
[2019-07-04] MEDS: buPROPion 150 MG Tab.ER PO SCH (08:06)
[2019-07-04] MEDS: Allopurinol 100 MG Tab PO SCH (08:06)
[2019-07-04] MEDS: Insulin Lispro 100 Units/ML 3 ML Vial SUBCUT SCH ×3 (08:07→18:28)
--- NOTE | 2019-07-04 11:57 | PCM.PN ---
- General Info Date of Service: 07/04/19 Admission Dx/Problem (Free Text): Acute on Chronic Systolic CHF, Class II, stage 3 CKD, stage 4 Subjective Update: Lucila is a 74 year old female who was admitted to the hospital 07/01/2019 for CHF, CKD and cough. She reports she does feel she is feeling somewhat better. Has had good diuresis with IV lasix. Reports she continues to have loose wet cough, which has been ongoing for some time now. It remains nonproductive. She also c/ o itching to her bilateral ankles. Has been applying lotion without relief. No other complaints this morning. Has been getting up to use the bathroom, but does report she is very winded and fatigued after exertion. Swelling in legs has also improved. Functional Status: Reports: Pain Controlled - Review of Systems General: Reports: Weakness. Denies: Fever, Chills HEENT: Reports: No Symptoms. Denies: Sinus Congestion, Sore Throat Pulmonary: Reports: Cough, Wheezing. Denies: Shortness of Breath Cardiovascular: Reports: No Symptoms, Edema. Denies: Chest Pain, Palpitations Gastrointestinal: Reports: Nausea. Denies: Abdominal Pain, Diarrhea, Vomiting Genitourinary: Reports: No Symptoms Musculoskeletal: Reports: No Symptoms. Denies: Neck Pain, Back Pain Skin: Reports: No Symptoms. Denies: Rash Neurological: Reports: No Symptoms. Denies: Confusion, Dizziness, Headache Psychiatric: Reports: No Symptoms - Patient Data Vitals - Most Recent: Last Vital Signs Temp 36.3 C 07/04/19 08:00 Pulse 66 07/04/19 08:04 Resp 18 07/04/19 08:00 BP 137/63 07/04/19 08:04 Pulse Ox 94 L 07/04/19 08:00 Weight - Most Recent: 109.3 kg I&O - Last 24 Hours: Intake & Output 07/03/19 07/04/19 07/04/19 22:59 06:59 14:59 Intake Total 1300 300 600 Output Total 1800 1300 550 Balance -500 -1000 50 Lab Results Last 24 Hours: Laboratory Results - last 24 hr 07/03/19 07/03/19 07/04/19 Range/Units 16:05 19:40 07:00 WBC (5.0-10.0) 10^3/uL RBC (4.00-5.50) 10^6/uL Hgb (12.0-16.0) g/dL Hct (37.0-47.0) % MCV (82.0-94.0) fL MCH (27.0-32.0) pg MCHC (33.0-38.0) g/dL RDW Coeff of Taniya (11.0-15.0) % Plt Count (150-400) 10^3/uL Neut % (Auto) (35-85) % Lymph % (Auto) (10-55) % [place] % (Auto) (0-16) % Eos % (Auto) (0-5) % Baso % (Auto) (0-3) % Neut # (Auto) (1.80-7.00) 10^3/uL Lymph # (Auto) (1.00-4.80) 10^3/uL [place] # (Auto) (0.00-0.80) 10^3/uL Eos # (Auto) (0.00-0.45) 10^3/uL Baso # (Auto) 10^3/uL Sodium 137 (136-145) mEq/L Potassium 4.2 (3.5-5.0) mEq/L Chloride 100 (98-106) mEq/L Carbon Dioxide 32 (21-32) mmol/L BUN 49 H (7-18) mg/dL Creatinine 1.7 H (0.6-1.0) mg/dL Est Cr Clr Drug Dosing 29.73 mL/min Estimated GFR (MDRD) 29 L (>=60) mL/min Glucose 104 H (75-99) mg/dL POC Glucose 61 L 195 H (75-105) mg/dl Calcium 9.1 (8.4-10.1) mg/dL NT-Pro-B Natriuret Pep (0-1000) pg/mL 07/04/19 07/04/19 07/04/19 Range/Units 07:00 07:00 07:59 WBC 6.5 (5.0-10.0) 10^3/uL RBC 3.23 L (4.00-5.50) 10^6/uL Hgb 10.3 L (12.0-16.0) g/dL Hct 31.3 L (37.0-47.0) % MCV 96.9 H (82.0-94.0) fL MCH 31.9 (27.0-32.0) pg MCHC 32.9 L (33.0-38.0) g/dL RDW Coeff of Taniya 14.4 (11.0-15.0) % Plt Count 225 (150-400) 10^3/uL Neut % (Auto) 59.9 (35-85) % Lymph % (Auto) 22.9 (10-55) % [place] % (Auto) 7.7 (0-16) % Eos % (Auto) 8.9 H (0-5) % Baso % (Auto) 0.6 (0-3) % Neut # (Auto) 3.90 (1.80-7.00) 10^3/uL Lymph # (Auto) 1.49 (1.00-4.80) 10^3/uL [place] # (Auto) 0.50 (0.00-0.80) 10^3/uL Eos # (Auto) 0.58 H (0.00-0.45) 10^3/uL Baso # (Auto) 0.04 10^3/uL Sodium (136-145) mEq/L Potassium (3.5-5.0) mEq/L Chloride (98-106) mEq/L Carbon Dioxide (21-32) mmol/L BUN (7-18) mg/dL Creatinine (0.6-1.0) mg/dL Est Cr Clr Drug Dosing mL/min Estimated GFR (MDRD) (>=60) mL/min Glucose (75-99) mg/dL POC Glucose 92 (75-105) mg/dl Calcium (8.4-10.1) mg/dL NT-Pro-B Natriuret Pep 6325 H (0-1000) pg/mL Med Orders - Current: Current Medications Acetaminophen (Tylenol) 650 mg PO Q4H PRN PRN Reason: Pain (Mild 1-3)/fever Albuterol/Ipratropium (Duoneb 3.0-0.5 Mg/3 Ml) 3 ml NEB QID PRN PRN Reason: Shortness of Breath Last Admin: 07/02/19 04:31 Dose: 3 ml Allopurinol (Zyloprim) 100 mg PO DAILY [facility] Last Admin: 07/04/19 08:06 Dose: 100 mg Alprazolam (Xanax) 0.5 mg PO BEDTIME PRN PRN Reason: Anxiety Amlodipine Besylate (Norvasc) 5 mg PO DAILY [facility] Last Admin: 07/04/19 08:04 Dose: 5 mg Aspirin (Aspirin) 81 mg PO DAILY [facility] Last Admin: 07/04/19 08:05 Dose: 81 mg Bupropion HCl (Wellbutrin Xl) 300 mg PO DAILY [facility] Last Admin: 07/04/19 08:06 Dose: 300 mg Carvedilol (Coreg) 6.25 mg PO BIDMEALS [facility] Last Admin: 07/04/19 08:04 Dose: 6.25 mg Diltiazem HCl (Cardizem Cd) 240 mg PO DAILY [facility] Last Admin: 07/04/19 08:01 Dose: 240 mg Enoxaparin Sodium (Lovenox) 30 mg SUBCUT Q24H [facility] Last Admin: 07/03/19 16:07 Dose: 30 mg Ferrous Sulfate (Ferrous Sulfate) 324 mg PO DAILY [facility] Last Admin: 07/04/19 08:06 Dose: 324 mg Furosemide (Lasix) 60 mg PO BIDDIURETIC [facility] Last Admin: 07/04/19 08:03 Dose: 60 mg Gabapentin (Neurontin) 100 mg PO TID [facility] Last Admin: 07/04/19 08:03 Dose: 100 mg Hydrocortisone (Hydrocortisone 2.5% Crm) 0 gm TOP BID PRN PRN Reason: Itching Last Admin: 07/03/19 22:46 Dose: 1 applic Insulin Glargine (Lantus Solostar) 15 units SUBCUT BEDTIME [facility] Last Admin: 07/03/19 19:42 Dose: 15 units Insulin Human Lispro (Humalog) 6 - 10 unit SUBCUT TIDMEALS [facility] Last Admin: 07/04/19 08:07 Dose: Not Given Ondansetron HCl (Zofran Odt) 8 mg PO Q6H PRN PRN Reason: Nausea Last Admin: 07/04/19 10:31 Dose: 8 mg Pantoprazole Sodium (Protonix) 40 mg PO ACBREAKFAST [facility] Last Admin: 07/04/19 06:58 Dose: 40 mg Polyethylene Glycol (Miralax) 17 gm PO DAILY PRN PRN Reason: Constipation Sertraline HCl (Zoloft) 50 mg PO BEDTIME [facility] Last Admin: 07/03/19 19:36 Dose: 50 mg Sodium Chloride (Saline Flush) 10 ml FLUSH ASDIRECTED PRN PRN Reason: Keep Vein Open Temazepam (Restoril) 15 mg PO BEDTIME PRN PRN Reason: Sleep Last Admin: 07/03/19 22:44 Dose: 15 mg Discontinued Medications Carvedilol (Coreg) 18.75 mg PO BIDMEALS [facility] Last Admin: 07/03/19 08:15 Dose: Not Given Furosemide (Lasix) 40 mg IVPUSH BID@0800,1400 [facility] Last Admin: 07/02/19 07:37 Dose: 40 mg Furosemide (Lasix) 40 mg IVPUSH DAILY [facility] Last Admin: 07/03/19 07:47 Dose: 40 mg - Exam General: Alert, Oriented, Cooperative Neck: Supple, Trachea Midline Lungs: Crackles Cardiovascular: Irregular Rhythm, Murmurs GI/Abdominal Exam: Normal Bowel Sounds, Soft, Non-Tender Back Exam: Normal Inspection, Full Range of Motion Extremities: Normal Range of Motion, Non-Tender, Normal Capillary Refill, Pedal Edema Peripheral Pulses: 2+: Radial (L), Posterior Tibial (L), Posterior Tibial (R) Skin: Warm, Dry, Intact Neurological: No New Focal Deficit Psy/Mental Status: Alert, Normal Affect, Normal Mood Sepsis Event Note - Evaluation Sepsis Screening Result: No Definite Risk - Focused Exam Vital Signs: Vital Signs Temp Pulse Pulse Resp BP BP Pulse Ox 07/04/19 08:04 66 137/63 07/04/19 08:01 66 137/63 07/04/19 08:00 36.3 C 66 18 137/63 94 L 07/04/19 04:00 36.6 C 67 18 151/50 H 98 07/03/19 23:59 36.5 C 18 134/48 L 97 Date Exam was Performed: 07/04/19 Time Exam was Performed: 11:52 - Problem List & Annotations (1) Acute exacerbation of CHF (congestive heart failure) SNOMED Code(s): 091320860, [id number] Code(s): I50.9 - HEART FAILURE, UNSPECIFIED Status: Acute Priority: High Current Visit: Yes Qualifiers: Heart failure type: systolic Qualified Code(s): I50.23 - Acute on chronic systolic (congestive) heart failure (2) Nausea & vomiting SNOMED Code(s): 00510812 Code(s): R11.2 - NAUSEA WITH VOMITING, UNSPECIFIED Status: Acute Current Visit: No Qualifiers: Vomiting Intractability: unspecified - Problem List Review Problem List Initiated/Reviewed/Updated: Yes - Assessment Assessment:: Acute on Chronic CHF, class II, stage 3 CKD, stage 4 - Plan Plan:: Patient is feeling much better today. States much less short of breath. Does feel edema has improved. Blood pressure is high this at at 169/58. Potassium is improved from 5.4 to 5.1, Sodium 135. Creatinine is improved to 2.0. Lung sounds do note crackles in right base. Oxygen sat is 96% on room air. Will decrease IV Lasix to daily. Monitor blood pressure closely. Repeat labs in am. Possibly return back to [facility] tomorrow. 07/03/2019 Overall, patient doing well. Does feel shortness of breath has improved some. Does continue to have dyspnea on exertion. Edema has improved and patient's weight is now down 5 lbs since admit. Does continue to have nonproductive wet cough, which she reports she has had for the past 4 wks or so. CXR on admit did show pleural effusion, R > L. Labs are stable this morning. Creatinine improved to 1.8. Potassium normal at 4.7. Will switch patient to 60 mg lasix BID. Stop IV lasix. Will repeat lab work in am, as well as repeat CXR. Patient has been having episodes of bradycardia on telemetry. Will reduce Coreg from 18.75 mg BID to 6.25 mg BID. Will trial hydrocortisone cream to ankles as needed for itching. Do not feel patient is ready for discharge today. Patient will be kept throughout weekend for continued monitoring and diuresis. Anticipate d/c to [facility] on Saturday. 07/04/2019 1145 the pt is progressing clinically. however, her BNP has significantly elevated, she does have chronic renal insufficiency which is unchanged. she denies any increase in SOB or FLORES, no cp. she did have some nausea and was given zofran with relief. her HHN tx were changed to scheduled vs prn, will continue lasix and repeat labs in am.
[2019-07-04] MEDS: Albuterol/Ipratropium 3.0-0.5 MG/3 ML Neb Soln NEB SCH ×3 (12:42→19:38)
[2019-07-04] MEDS: Enoxaparin 30 MG/0.3 ML Syringe SUBCUT SCH (15:54)
[2019-07-04] MEDS: Sertraline 100 MG Tab PO SCH (19:37)
[2019-07-04] MEDS: Insulin Glargine,Human Rec. Analog 100 Units/ML 3 ML Pen SUBCUT SCH (20:28)
[2019-07-04] MEDS: Temazepam 15 MG Cap PO PRN (22:08)
[2019-07-05] MEDS: Pantoprazole 40 MG Tab.CR PO SCH (06:15)
[2019-07-05] MEDS: Insulin Lispro 100 Units/ML 3 ML Vial SUBCUT SCH ×3 (07:35→17:23)
[2019-07-05] MEDS: amLODIPine 10 MG Tab PO SCH (08:01)
[2019-07-05] MEDS: Allopurinol 100 MG Tab PO SCH (08:01)
[2019-07-05] MEDS: Carvedilol 6.25 MG Tab PO SCH ×2 (08:02→17:24)
[2019-07-05] MEDS: Ferrous Sulfate 324 MG Tab.EC PO SCH (08:03)
[2019-07-05] MEDS: Gabapentin 100 MG Cap PO SCH ×3 (08:03→19:35)
[2019-07-05] MEDS: buPROPion 150 MG Tab.ER PO SCH (08:04)
[2019-07-05] MEDS: Aspirin 81 MG Tab.Chew PO SCH (08:04)
[2019-07-05] MEDS: Furosemide 20 MG Tab PO SCH ×2 (08:05→16:18)
[2019-07-05] MEDS: Diltiazem 120 MG Cap.CD PO SCH (08:05)
[2019-07-05] MEDS: Albuterol/Ipratropium 3.0-0.5 MG/3 ML Neb Soln NEB SCH ×4 (08:06→19:36)
--- NOTE | 2019-07-05 10:11 | PCM.PN ---
- General Info Date of Service: 07/05/19 Admission Dx/Problem (Free Text): Acute on Chronic Systolic CHF, Class II, stage 3 CKD, stage 4 Subjective Update: Lucila is a 74 year old female who was admitted to the hospital 07/01/2019 for CHF, CKD and cough. She reports she does feel she is feeling somewhat better. Has had good diuresis with IV lasix. Reports she continues to have loose wet cough, which has been ongoing for some time now. It remains nonproductive. She also c/ o itching to her bilateral ankles. Has been applying lotion without relief. No other complaints this morning. Has been getting up to use the bathroom, but does report she is very winded and fatigued after exertion. Swelling in legs has also improved. Functional Status: Reports: Pain Controlled, Tolerating Diet, Ambulating, Urinating. Denies: New Symptoms - Review of Systems General: Reports: No Symptoms. Denies: Fever, Weakness HEENT: Reports: No Symptoms Pulmonary: Reports: Shortness of Breath, Cough, Wheezing Cardiovascular: Reports: Edema. Denies: Chest Pain, Dyspnea on Exertion, Lightheadedness Gastrointestinal: Reports: No Symptoms. Denies: Abdominal Pain, Nausea, Vomiting Genitourinary: Reports: No Symptoms Musculoskeletal: Reports: No Symptoms. Denies: Neck Pain, Back Pain Skin: Reports: No Symptoms. Denies: Rash Neurological: Reports: No Symptoms Psychiatric: Reports: No Symptoms - Patient Data Vitals - Most Recent: Last Vital Signs Temp 36.8 C 07/05/19 08:00 Pulse 82 07/05/19 08:05 Resp 20 07/05/19 08:00 BP 141/48 H 07/05/19 08:05 Pulse Ox 90 L 07/05/19 08:00 Weight - Most Recent: 109.3 kg I&O - Last 24 Hours: Intake & Output 07/04/19 07/05/19 07/05/19 22:59 06:59 14:59 Intake Total 660 Output Total 600 950 Balance -600 -290 Lab Results Last 24 Hours: Laboratory Results - last 24 hr 07/04/19 07/04/19 07/04/19 Range/Units 11:54 16:04 17:25 Sodium (136-145) mEq/L Potassium (3.5-5.0) mEq/L Chloride (98-106) mEq/L Carbon Dioxide (21-32) mmol/L BUN (7-18) mg/dL Creatinine (0.6-1.0) mg/dL Est Cr Clr Drug Dosing mL/min Estimated GFR (MDRD) (>=60) mL/min Glucose (75-99) mg/dL POC Glucose 194 H 73 L 123 H (75-105) mg/dl Calcium (8.4-10.1) mg/dL NT-Pro-B Natriuret Pep (0-1000) pg/mL 07/04/19 07/05/19 07/05/19 Range/Units 20:26 07:00 08:00 Sodium 137 (136-145) mEq/L Potassium 4.1 (3.5-5.0) mEq/L Chloride 98 (98-106) mEq/L Carbon Dioxide 31 (21-32) mmol/L BUN 45 H (7-18) mg/dL Creatinine 1.7 H (0.6-1.0) mg/dL Est Cr Clr Drug Dosing 29.73 mL/min Estimated GFR (MDRD) 29 L (>=60) mL/min Glucose 99 (75-99) mg/dL POC Glucose 132 H 89 (75-105) mg/dl Calcium 8.9 (8.4-10.1) mg/dL NT-Pro-B Natriuret Pep 5587 H (0-1000) pg/mL Med Orders - Current: Current Medications Acetaminophen (Tylenol) 650 mg PO Q4H PRN PRN Reason: Pain (Mild 1-3)/fever Last Admin: 07/04/19 12:06 Dose: 650 mg Albuterol/Ipratropium (Duoneb 3.0-0.5 Mg/3 Ml) 3 ml NEB QIDRT [facility] Last Admin: 07/05/19 08:06 Dose: 3 ml Allopurinol (Zyloprim) 100 mg PO DAILY [facility] Last Admin: 07/05/19 08:01 Dose: 100 mg Alprazolam (Xanax) 0.5 mg PO BEDTIME PRN PRN Reason: Anxiety Amlodipine Besylate (Norvasc) 5 mg PO DAILY [facility] Last Admin: 07/05/19 08:01 Dose: 5 mg Aspirin (Aspirin) 81 mg PO DAILY [facility] Last Admin: 07/05/19 08:04 Dose: 81 mg Bupropion HCl (Wellbutrin Xl) 300 mg PO DAILY [facility] Last Admin: 07/05/19 08:04 Dose: 300 mg Carvedilol (Coreg) 6.25 mg PO BIDMEALS [facility] Last Admin: 07/05/19 08:02 Dose: 6.25 mg Diltiazem HCl (Cardizem Cd) 240 mg PO DAILY [facility] Last Admin: 07/05/19 08:05 Dose: 240 mg Enoxaparin Sodium (Lovenox) 30 mg SUBCUT Q24H [facility] Last Admin: 07/04/19 15:54 Dose: 30 mg Ferrous Sulfate (Ferrous Sulfate) 324 mg PO DAILY [facility] Last Admin: 07/05/19 08:03 Dose: 324 mg Furosemide (Lasix) 60 mg PO BIDDIURETIC [facility] Last Admin: 07/05/19 08:05 Dose: 60 mg Gabapentin (Neurontin) 100 mg PO TID [facility] Last Admin: 07/05/19 08:03 Dose: 100 mg Hydrocortisone (Hydrocortisone 2.5% Crm) 0 gm TOP BID PRN PRN Reason: Itching Last Admin: 07/03/19 22:46 Dose: 1 applic Insulin Glargine (Lantus Solostar) 15 units SUBCUT BEDTIME [facility] Last Admin: 07/04/19 20:28 Dose: 15 units Insulin Human Lispro (Humalog) 6 - 10 unit SUBCUT TIDMEALS [facility] Last Admin: 07/05/19 07:35 Dose: Not Given Ondansetron HCl (Zofran Odt) 8 mg PO Q6H PRN PRN Reason: Nausea Last Admin: 07/04/19 10:31 Dose: 8 mg Pantoprazole Sodium (Protonix) 40 mg PO ACBREAKFAST [facility] Last Admin: 07/05/19 06:15 Dose: 40 mg Polyethylene Glycol (Miralax) 17 gm PO DAILY PRN PRN Reason: Constipation Sertraline HCl (Zoloft) 50 mg PO BEDTIME [facility] Last Admin: 07/04/19 19:37 Dose: 50 mg Sodium Chloride (Saline Flush) 10 ml FLUSH ASDIRECTED PRN PRN Reason: Keep Vein Open Temazepam (Restoril) 15 mg PO BEDTIME PRN PRN Reason: Sleep Last Admin: 07/04/19 22:08 Dose: 15 mg Discontinued Medications Albuterol/Ipratropium (Duoneb 3.0-0.5 Mg/3 Ml) 3 ml NEB QID PRN PRN Reason: Shortness of Breath Last Admin: 07/02/19 04:31 Dose: 3 ml Carvedilol (Coreg) 18.75 mg PO BIDMEALS [facility] Last Admin: 07/03/19 08:15 Dose: Not Given Furosemide (Lasix) 40 mg IVPUSH BID@0800,1400 [facility] Last Admin: 07/02/19 07:37 Dose: 40 mg Furosemide (Lasix) 40 mg IVPUSH DAILY [facility] Last Admin: 07/03/19 07:47 Dose: 40 mg - Exam Quality Assessment: Supplemental Oxygen General: Alert, Oriented, Cooperative HEENT: Pupils Equal Neck: Supple, Trachea Midline Lungs: Normal Respiratory Effort, Rales Cardiovascular: Regular Rate, Regular Rhythm, Murmurs GI/Abdominal Exam: Soft, Non-Tender Back Exam: Normal Inspection, Full Range of Motion Extremities: Normal Range of Motion, Non-Tender, Normal Capillary Refill, Pedal Edema Peripheral Pulses: 2+: Radial (L), Radial (R) Skin: Warm, Dry, Intact Neurological: No New Focal Deficit, Normal Gait, Normal Speech Psy/Mental Status: Alert, Normal Affect, Normal Mood Sepsis Event Note - Evaluation Sepsis Screening Result: No Definite Risk - Focused Exam Vital Signs: Vital Signs Temp Pulse Pulse Resp BP BP Pulse Ox 07/05/19 08:05 82 141/48 H 07/05/19 08:02 82 141/48 H 07/05/19 08:01 141/48 H 07/05/19 08:00 36.8 C 82 20 141/48 H 90 L 07/05/19 04:00 36.8 C 66 16 147/52 H 92 L 07/04/19 23:37 36.1 C 71 16 123/45 L 92 L Date Exam was Performed: 07/05/19 Time Exam was Performed: 10:11 - Problem List & Annotations (1) Acute exacerbation of CHF (congestive heart failure) SNOMED Code(s): 001876093, 13534056673732 Code(s): I50.9 - HEART FAILURE, UNSPECIFIED Status: Acute Priority: High Current Visit: Yes Qualifiers: Heart failure type: systolic Qualified Code(s): I50.23 - Acute on chronic systolic (congestive) heart failure (2) Nausea & vomiting SNOMED Code(s): 13705978 Code(s): R11.2 - NAUSEA WITH VOMITING, UNSPECIFIED Status: Acute Current Visit: No Qualifiers: Vomiting Intractability: unspecified - Problem List Review Problem List Initiated/Reviewed/Updated: Yes - My Orders Last 24 Hours: My Active Orders 07/04/19 12:00 Albuterol/Ipratropium [DuoNeb 3.0-0.5 MG/3 ML] 3 ml NEB QIDRT - Assessment Assessment:: Acute on Chronic CHF, class II, stage 3 CKD, stage 4 - Plan Plan:: Patient is feeling much better today. States much less short of breath. Does feel edema has improved. Blood pressure is high this at at 169/58. Potassium is improved from 5.4 to 5.1, Sodium 135. Creatinine is improved to 2.0. Lung sounds do note crackles in right base. Oxygen sat is 96% on room air. Will decrease IV Lasix to daily. Monitor blood pressure closely. Repeat labs in am. Possibly return back to [facility] tomorrow. 07/03/2019 Overall, patient doing well. Does feel shortness of breath has improved some. Does continue to have dyspnea on exertion. Edema has improved and patient's weight is now down 5 lbs since admit. Does continue to have nonproductive wet cough, which she reports she has had for the past 4 wks or so. CXR on admit did show pleural effusion, R > L. Labs are stable this morning. Creatinine improved to 1.8. Potassium normal at 4.7. Will switch patient to 60 mg lasix BID. Stop IV lasix. Will repeat lab work in am, as well as repeat CXR. Patient has been having episodes of bradycardia on telemetry. Will reduce Coreg from 18.75 mg BID to 6.25 mg BID. Will trial hydrocortisone cream to ankles as needed for itching. Do not feel patient is ready for discharge today. Patient will be kept throughout weekend for continued monitoring and diuresis. Anticipate d/c to [facility] on Saturday. 07/04/2019 1145 the pt is progressing clinically. however, her BNP has significantly elevated, she does have chronic renal insufficiency which is unchanged. she denies any increase in SOB or FLORES, no cp. she did have some nausea and was given zofran with relief. her HHN tx were changed to scheduled vs prn, will continue lasix and repeat labs in am. 07/05/2019 1008 pt is improving both on physical exam and labs, still c/o some sob and wheezing , no cp, no abd pain, no nv, no fever, weight is the same from yesterday, fluid balance has a net negative of 730ml, will continue treatment plan, I suspect the pt will continue current plan for the next few days
[2019-07-05] MEDS: Enoxaparin 30 MG/0.3 ML Syringe SUBCUT SCH (16:17)
[2019-07-05] MEDS: Sertraline 100 MG Tab PO SCH (19:35)
[2019-07-05] MEDS: Insulin Glargine,Human Rec. Analog 100 Units/ML 3 ML Pen SUBCUT SCH (20:28)
[2019-07-05] MEDS: Temazepam 15 MG Cap PO PRN (22:17)
[2019-07-06] MEDS: Pantoprazole 40 MG Tab.CR PO SCH (06:27)
[2019-07-06] MEDS: Ferrous Sulfate 324 MG Tab.EC PO SCH (07:37)
[2019-07-06] MEDS: amLODIPine 10 MG Tab PO SCH (07:37)
[2019-07-06] MEDS: Diltiazem 120 MG Cap.CD PO SCH (07:38)
[2019-07-06] MEDS: buPROPion 150 MG Tab.ER PO SCH (07:38)
[2019-07-06] MEDS: Furosemide 20 MG Tab PO SCH (07:39)
[2019-07-06] MEDS: Aspirin 81 MG Tab.Chew PO SCH (07:39)
[2019-07-06] MEDS: Gabapentin 100 MG Cap PO SCH ×3 (07:40→19:30)
[2019-07-06] MEDS: Albuterol/Ipratropium 3.0-0.5 MG/3 ML Neb Soln NEB SCH ×4 (07:40→19:32)
[2019-07-06] MEDS: Carvedilol 6.25 MG Tab PO SCH ×2 (07:40→17:04)
[2019-07-06] MEDS: Allopurinol 100 MG Tab PO SCH (07:40)
[2019-07-06] MEDS: Insulin Lispro 100 Units/ML 3 ML Vial SUBCUT SCH ×3 (07:45→17:05)
--- NOTE | 2019-07-06 13:26 | PN ---
DATE: 07/06/2019 S: Lucila was admitted last week for congestive heart failure. Through the weekend, she has had improvement in her swelling. She continues to have a wet- sounding moist cough. She does have a right-sided pleural effusion which has been present for some time and really does not appear that unchanged. Followup x-ray showed stability there, but no real improvement. She has had no fever. Stable vital signs. She was having some bradycardia a couple of days after admission, and her Coreg dose was lowered, and she has had improvement in that regard. Her telemetry is stable, usually run in the 70s and 80s. Other than her cough, she feels much better. O: GENERAL: When I examine her today, she is pleasant and cooperative, coughs frequently, which is moist. HEENT: Grossly benign. NECK: Veins are not grossly distended. LUNGS: Her lung sounds continue to show some basilar crackles, worse on the right where her effusion is present. CARDIAC: Tones irregular, but controlled. ABDOMEN: Her abdomen is soft. EXTREMITIES: Lower extremities show improvement down from about 2 to 1+ to trace edema. ASSESSMENT: 1. ACUTE EXACERBATION OF CHRONIC DIASTOLIC HEART FAILURE. 2. CHRONIC KIDNEY DISEASE. 3. RIGHT-SIDED PLEURAL EFFUSION. 4. TYPE 2 DIABETES, REQUIRING INSULIN. P: I am going to slightly increase her Lasix dose. Continue all other cares. She has been started on nebulizer therapy, and she does have a history of some mild COPD. I will get repeat white blood count and CRP today as well. There is possibility of underlying pneumonia in this effusion area. KEVIN/BAILEY /[id number]
[2019-07-06] MEDS: Enoxaparin 30 MG/0.3 ML Syringe SUBCUT SCH (15:54)
[2019-07-06] MEDS: Furosemide 80 MG Tab PO SCH (15:54)
[2019-07-06] MEDS: Sertraline 100 MG Tab PO SCH (19:30)
[2019-07-06] MEDS: Insulin Glargine,Human Rec. Analog 100 Units/ML 3 ML Pen SUBCUT SCH (19:42)
[2019-07-06] MEDS: Temazepam 15 MG Cap PO PRN (22:16)
[2019-07-07] MEDS: Pantoprazole 40 MG Tab.CR PO SCH (06:00)
[2019-07-07] MEDS: Gabapentin 100 MG Cap PO SCH (07:38)
[2019-07-07] MEDS: Albuterol/Ipratropium 3.0-0.5 MG/3 ML Neb Soln NEB SCH ×2 (07:38→11:52)
[2019-07-07] MEDS: Aspirin 81 MG Tab.Chew PO SCH (07:38)
[2019-07-07] MEDS: Furosemide 80 MG Tab PO SCH (07:39)
[2019-07-07] MEDS: Ferrous Sulfate 324 MG Tab.EC PO SCH (07:39)
[2019-07-07] MEDS: buPROPion 150 MG Tab.ER PO SCH (07:39)
[2019-07-07] MEDS: amLODIPine 10 MG Tab PO SCH (07:43)
[2019-07-07] MEDS: Carvedilol 6.25 MG Tab PO SCH (07:43)
[2019-07-07] MEDS: Allopurinol 100 MG Tab PO SCH (07:44)
[2019-07-07] MEDS: Diltiazem 120 MG Cap.CD PO SCH (07:44)
[2019-07-07] MEDS: Insulin Lispro 100 Units/ML 3 ML Vial SUBCUT SCH ×2 (08:16→11:55)
--- NOTE | 2019-07-07 12:52 | DISCH ---
ADMISSION DIAGNOSES: 1. Acute exacerbation chronic diastolic congestive heart failure. 2. Chronic kidney disease. 3. Right-sided pleural effusion with associated cough. 4. Type 2 diabetes, requiring insulin. HISTORY: The patient was admitted after being seen on [facility] rounds with a wet sounding cough and increase in peripheral edema. She has a prior diagnosis of diastolic heart disease, chronic kidney disease, and diabetes. She has known right-sided pleural effusion, which I believe has been persistent for months. We elected to admit her to the hospital for such. HOSPITAL COURSE: The patient was admitted and initially given IV Lasix for diuresis, and she has done very well. She was admitted on Bumex and had just started taking some metolazone. At the time for her admission, her proBNP was 4800, creatinine was 2.2, and weight was 111 kg. After diuresis, she has clinically done very well. Her cough has improved, and she is starting aerate her right lower lung. She is coughing up clear white sputum, and we do have a culture pending. White blood cell count and CRP are normal. Her creatinine is down to 1.4. Her weights are down almost 10 pounds. 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 She feels better. Vital signs been stable, and we will continue to monitor this through the home. The patient will be discharged back to [facility]. We will keep her on daily b.i.d. dose of Lasix, which she has responded to well since being here. Sputum culture is pending. We will plan follow up in the clinic in 2 weeks for repeat chest x-ray and appropriate laboratory work. We will keep her on a low-salt diet and slight fluid restriction for the time being. Complications during her stay were none. CONSULTATIONS: None. DISPOSITION: Discharge to [facility]. KEVIN/BAILEY /[id number]
[2019-07-07 13:24] VITALS: BP 157/70; PULSE 87
== END 2019-07-07 13:15 | DRG 291 ==
LOC: CC.MS 12:50 → CC.FCMC 12:50 → CC.MS 13:32 → UNDOADMIN 13:32 → CC.MS 13:35
PROVIDERS: ADMIT Physician Assistant Medical; ATTEND Family Medicine
DX: I13.0 Hypertensive heart and chronic kidney disease with heart failure and stage 1 through stage 4 chronic kidney disease, or unspecified chronic kidney disease (principal); I50.33 Acute on chronic diastolic (congestive) heart failure; N18.4 Chronic kidney disease, stage 4 (severe); Z96.649 Presence of unspecified artificial hip joint; Z96.659 Presence of unspecified artificial knee joint; E87.5 Hyperkalemia; I25.10 Atherosclerotic heart disease of native coronary artery without angina pectoris; E11.22 Type 2 diabetes mellitus with diabetic chronic kidney disease; Z90.49 Acquired absence of other specified parts of digestive tract; Z79.82 Long term (current) use of aspirin; Z79.899 Other long term (current) drug therapy
CPT/HCPCS: 36415; 71046; 80048; 82962; 83880; 85025; 86140; 87070; 87077; 87186; 87205; 94640; A9270-GY; J1650; J1815; J1815-GY; J1940; J7620-GY

== ENCOUNTER 2019-09-25 16:52 | Inpatient (IN) | payer MEDICARE, OTHER, MEDICAID ==
--- NOTE | 2019-09-25 17:22 | EDM.PDOC ---
ED HPI GENERAL MEDICAL PROBLEM - General Chief Complaint: Respiratory Problem Stated Complaint: sob Time Seen by Provider: 09/25/19 17:16 Source of Information: Reports: Patient History Limitations: Reports: No Limitations - History of Present Illness INITIAL COMMENTS - FREE TEXT/NARRATIVE: This patient is a 74 year old female that presents to the ER. Argelia nurse from [facility] called clinic about this patient. Bree reported the patient for the past 1-1 1/2 weeks has become more short of breath. She reported the patient has had a 6lb weight gain over a week. She also reports the patient is more short of breath with activity and walking to the bathroom. She reports the patient doctor has been decreasing her Lasix due to her renal function. The patient reports that for the last 1 week having shortness of breath worse than usual. She reports it is worse walking to the bathroom and she has to sit to get dressed. Patient reports that her leg edema has worsened. She reports she has now developed a cough over the last 1 day, nonproductive. She reports it feels "congested" in her throat. She also reports having some hoarseness voice quality. The patient is able to converse in full and complete sentences. She does stop after each sentence to take a breath. Onset Date: 09/18/19 Duration: Week(s): (1), Getting Worse Severity: Moderate Improves with: Reports: Rest Worsens with: Reports: Other (activity) Associated Symptoms: Reports: Cough, Shortness of Breath, Weakness (generalized) . Denies: Confusion, Chest Pain, cough w sputum, Diaphoresis, Fever/Chills, Headaches, Loss of Appetite, Malaise, Nausea/Vomiting, Rash, Seizure, Syncope - Related Data Allergies Allergy/AdvReac Type Severity Reaction Status Date / Time lisinopril Allergy Rash Verified 09/25/19 17:19 oxycodone [From Percocet] Allergy Itching Verified 09/25/19 17:19 paper tape Allergy Rash Uncoded 09/25/19 17:19 Home Meds: Home Meds Pantoprazole [ProTONIX] 40 mg PO DAILY 45 Days tab.cr 11/26/13 [Rx] Aspirin 81 mg PO DAILY 11/05/16 [History] Allopurinol [Zyloprim] 100 mg PO DAILY 04/21/17 [History] Gabapentin [Neurontin] 100 mg PO TID 05/14/17 [History] buPROPion HCL [Wellbutrin Xl] 300 mg PO DAILY 05/14/17 [History] amLODIPine [Norvasc] 5 mg PO DAILY 04/21/19 [History] dilTIAZem HCL [Cartia Xt] 240 mg PO DAILY 04/21/19 [History] Albuterol/Ipratropium [DuoNeb 3.0-0.5 MG/3 ML] 3 ml NEB QID 06/13/19 [History] Ferrous Sulfate [Iron] 325 mg PO DAILY 06/13/19 [History] Ocutabs 1 tab PO DAILY 06/13/19 [History] Acetaminophen [Tylenol] 650 mg PO Q4H PRN tablet 07/07/19 [Rx] Budesonide [Pulmicort] 1 inh INH BID 09/25/19 [History] Codeine Phosphate/Guaifenesin [Guaifenesin AC Cough Syrup] 2 tsp PO Q4H PRN 04/03 [History] Furosemide [Lasix] 40 mg PO DAILY 09/25/19 [History] Insuln Asp Prot/Insulin Aspart [NovoLOG Mix 70-30] 8 units SQ BEDTIME 09/25/19 [ History] Insuln Asp Prot/Insulin Aspart [NovoLOG Mix 70-30] 16 units SQ DAILY 09/25/19 [ History] Ipratropium/Albuterol Sulfate [Iprat-Albut 0.5-3(2.5) mg/3 ml] 1 inh INH QID PRN 09/25/19 [History] polyethylene glycoL 3350 [MiraLAX] 17 gm PO DAILY 09/25/19 [History] Past Medical History HEENT History: Reports: Sinusitis Cardiovascular History: Reports: CAD, Heart Failure, Hypertension Respiratory History: Reports: Bronchitis, Recurrent Gastrointestinal History: Reports: Other (See Below) Other Gastrointestinal History: perforated sigmoid colon Genitourinary History: Reports: Other (See Below) Other Genitourinary History: hs of surgery on kidney, pt unaware of why Musculoskeletal History: Reports: Osteoarthritis Psychiatric History: Reports: Anxiety, Depression Endocrine/Metabolic History: Reports: Diabetes, Type II Hematologic History: Reports: None - Past Surgical History Cardiovascular Surgical History: Reports: Carotid Stents GI Surgical History: Reports: Appendectomy, Colonoscopy, Colostomy, Hernia, Abdominal, Hernia Repair/Other, Lysis of Adhesions, Polypectomy, Other (See Below) Other GI Surgeries/Procedures: REVISION OF COLOSTOMY Neurological Surgical History: Reports: Other (See Below) Musculoskeletal Surgical History: Reports: Hip Replacement, Knee Replacement Oncologic Surgical History: Reports: None Dermatological Surgical History: Reports: None Social & Family History - Family History Family Medical History: Noncontributory Cardiac: Reports: CAD, Heart Failure, Hypertension Neurological: Reports: Cerebral Aneurysms - Tobacco Use Smoking Status *Q: Never Smoker - Caffeine Use Caffeine Use: Reports: Coffee - Recreational Drug Use Recreational Drug Use: No - Sexual History Sexual History: Reports: None - Living Situation & Occupation Living situation: Reports: , Single, with Significant Other Occupation: Employed ED ROS GENERAL - Review of Systems Review Of Systems: See Below Constitutional: Reports: Weakness, Fatigue, Weight Gain (6lbs in 1 week per [facility]) HEENT: Reports: Other ("throat congestion", Hoarsness) Respiratory: Reports: Shortness of Breath, Cough. Denies: Wheezing, Pleuritic Chest Pain, Sputum, Hemoptysis Cardiovascular: Reports: Dyspnea on Exertion, Edema. Denies: Chest Pain, Lightheadedness, Palpitations, Syncope Endocrine: Reports: No Symptoms GI/Abdominal: Reports: No Symptoms. Denies: Abdominal Pain, Diarrhea, Nausea, Vomiting : Reports: No Symptoms Musculoskeletal: Reports: No Symptoms Skin: Reports: No Symptoms Neurological: Reports: No Symptoms. Denies: Confusion, Dizziness, Headache, Seizure, Syncope Psychiatric: Reports: No Symptoms Hematologic/Lymphatic: Reports: No Symptoms Immunologic: Reports: No Symptoms ED EXAM, GENERAL - Physical Exam Exam: See Below Exam Limited By: No Limitations General Appearance: Alert, WD/WN, No Apparent Distress Eye Exam: Bilateral Eye: Normal Inspection, PERRL Ears: Normal External Exam, Normal Canal, Hearing Grossly Normal, Normal TMs Ear Exam: Bilateral Ear: Auricle Normal, Canal Normal, TM normal Nose: Normal Inspection, Normal Mucosa, No Blood Throat/Mouth: Normal Inspection, Normal Lips, Normal Teeth, Normal Gums, Normal Oropharynx, No Airway Compromise, Other (hoarsness voice) Head: Atraumatic, Normocephalic Neck: Normal Inspection, Supple, Non-Tender, Full Range of Motion Respiratory/Chest: Decreased Breath Sounds (BLL), Rales Cardiovascular: Bradycardia (58 on exam), Gallop/S3, Other (BLE +3 edema) Peripheral Pulses: 2+: Radial (L), Radial (R), Posterior Tibial (L), Posterior Tibial (R) GI/Abdominal: Soft, Non-Tender Back Exam: Normal Inspection, Full Range of Motion Extremities: Normal Range of Motion, Non-Tender, Normal Capillary Refill, Pedal Edema (+3 BLE) Neurological: Alert, Oriented, Normal Cognition Psychiatric: Normal Affect, Normal Mood Skin Exam: Warm, Dry, Intact, Normal Color, No Rash Lymphatic: No Adenopathy EKG INTERPRETATION EKG Date: 09/25/19 Time: 17:08 Rhythm: Other (bradycardia) Rate (Beats/Min): 57 Comparison: No Change Course - Vital Signs Last Recorded V/S: Last Vital Signs Temp 98.8 F 09/25/19 16:53 Pulse 68 09/25/19 16:53 Resp 20 09/25/19 16:53 BP 154/54 H 09/25/19 16:53 Pulse Ox 92 L 09/25/19 16:53 - Orders/Labs/Meds Orders: Active Orders 24 hr Category Date Time Status EKG Documentation Completion [RC] STAT Care 09/25/19 16:57 Active Chest 2V [CR] Stat Exams 09/25/19 16:57 Ordered CULTURE BLOOD [BC] Stat Lab 09/25/19 17:45 Received CULTURE BLOOD [BC] Stat Lab 09/25/19 17:50 Received Blood Culture x2 Reflex Set [OM.PC] Stat Oth 09/25/19 17:30 Ordered Labs: Laboratory Tests 09/25/19 09/25/19 09/25/19 Range/Units 16:57 16:57 17:00 WBC 8.9 (5.0-10.0) 10^3/uL RBC 3.36 L (4.00-5.50) 10^6/uL Hgb 10.8 L (12.0-16.0) g/dL Hct 32.3 L (37.0-47.0) % MCV 96.1 H (82.0-94.0) fL MCH 32.1 H (27.0-32.0) pg MCHC 33.4 (33.0-38.0) g/dL RDW Coeff of Taniya 13.6 (11.0-15.0) % Plt Count 287 (150-400) 10^3/uL Neut % (Auto) 65.7 (35-85) % Lymph % (Auto) 20.8 (10-55) % [place] % (Auto) 6.4 (0-16) % Eos % (Auto) 6.6 H (0-5) % Baso % (Auto) 0.5 (0-3) % Neut # (Auto) 5.82 (1.80-7.00) 10^3/uL Lymph # (Auto) 1.84 (1.00-4.80) 10^3/uL [place] # (Auto) 0.57 (0.00-0.80) 10^3/uL Eos # (Auto) 0.58 H (0.00-0.45) 10^3/uL Baso # (Auto) 0.04 10^3/uL PT 10.5 (9.7-12.3) SEC INR 1.04 (0.92-1.18) Sodium 136 (136-145) mEq/L Potassium 4.8 (3.5-5.0) mEq/L Chloride 102 (98-106) mEq/L Carbon Dioxide 25 (21-32) mmol/L BUN 56 H D (7-18) mg/dL Creatinine 2.2 H (0.6-1.0) mg/dL Est Cr Clr Drug Dosing 22.97 mL/min Estimated GFR (MDRD) 22 L (>=60) mL/min Glucose 193 H D (75-99) mg/dL Lactic Acid (0.4-2.0) mmol/L Calcium 8.9 (8.4-10.1) mg/dL Total Bilirubin 0.5 (0.0-1.0) mg/dL AST 19 (15-37) U/L ALT 19 (12-78) U/L Alkaline Phosphatase 152 H (46-116) U/L Lactate Dehydrogenase 230 H (100-190) U/L Creatine Kinase 44 (21-215) U/L Troponin I < 0.017 (0.00-0.06) ng/mL C-Reactive Protein (0.2-0.8) mg/dL NT-Pro-B Natriuret Pep 63662 H (0-1000) pg/mL Total Protein 6.8 (6.4-8.2) g/dL Albumin 3.3 L (3.4-5.0) g/dL SARS-CoV-2 RNA (RT-PCR) (NEGATIVE) 09/25/19 09/25/19 09/25/19 Range/Units 17:08 17:30 17:30 WBC (5.0-10.0) 10^3/uL RBC (4.00-5.50) 10^6/uL Hgb (12.0-16.0) g/dL Hct (37.0-47.0) % MCV (82.0-94.0) fL MCH (27.0-32.0) pg MCHC (33.0-38.0) g/dL RDW Coeff of Taniya (11.0-15.0) % Plt Count (150-400) 10^3/uL Neut % (Auto) (35-85) % Lymph % (Auto) (10-55) % [place] % (Auto) (0-16) % Eos % (Auto) (0-5) % Baso % (Auto) (0-3) % Neut # (Auto) (1.80-7.00) 10^3/uL Lymph # (Auto) (1.00-4.80) 10^3/uL [place] # (Auto) (0.00-0.80) 10^3/uL Eos # (Auto) (0.00-0.45) 10^3/uL Baso # (Auto) 10^3/uL PT (9.7-12.3) SEC INR (0.92-1.18) Sodium (136-145) mEq/L Potassium (3.5-5.0) mEq/L Chloride (98-106) mEq/L Carbon Dioxide (21-32) mmol/L BUN (7-18) mg/dL Creatinine (0.6-1.0) mg/dL Est Cr Clr Drug Dosing mL/min Estimated GFR (MDRD) (>=60) mL/min Glucose (75-99) mg/dL Lactic Acid 0.9 (0.4-2.0) mmol/L Calcium (8.4-10.1) mg/dL Total Bilirubin (0.0-1.0) mg/dL AST (15-37) U/L ALT (12-78) U/L Alkaline Phosphatase (46-116) U/L Lactate Dehydrogenase (100-190) U/L Creatine Kinase (21-215) U/L Troponin I (0.00-0.06) ng/mL C-Reactive Protein 2.3 H (0.2-0.8) mg/dL NT-Pro-B Natriuret Pep (0-1000) pg/mL Total Protein (6.4-8.2) g/dL Albumin (3.4-5.0) g/dL SARS-CoV-2 RNA (RT-PCR) Negative (NEGATIVE) Meds: Medications Discontinued Medications Generic Name Dose Route Start Last Admin Trade Name Freq PRN Reason Stop Dose Admin Furosemide 40 mg 09/25/19 17:55 09/25/19 18:07 Lasix IVPUSH 09/25/19 17:56 40 mg ONETIME ONE Administration - Radiology Interpretation Free Text/Narrative:: CXR: Right pleural effusion RLL Departure - Departure Time of Disposition: 18:00 Disposition: Admitted As Inpatient 67 Condition: Fair Clinical Impression: CHF exacerbation Qualifiers: Heart failure type: systolic Qualified Code(s): I50.23 - Acute on chronic systolic (congestive) heart failure - Discharge Information *PRESCRIPTION DRUG MONITORING PROGRAM REVIEWED*: Not Applicable *COPY OF PRESCRIPTION DRUG MONITORING REPORT IN PATIENT CORNELIO: Not Applicable Sepsis Event Note (ED) - Evaluation Sepsis Screening Result: No Definite Risk - Focused Exam Vital Signs: Vital Signs Temp Pulse Resp BP Pulse Ox 09/25/19 16:53 98.8 F 68 20 154/54 H 92 L - My Orders Last 24 Hours: My Active Orders 09/25/19 16:57 EKG Documentation Completion [RC] STAT Chest 2V [CR] Stat 09/25/19 17:30 Blood Culture x2 Reflex Set [OM.PC] Stat 09/25/19 17:45 CULTURE BLOOD [BC] Stat 09/25/19 17:50 CULTURE BLOOD [BC] Stat - Assessment/Plan Last 24 Hours: My Active Orders 09/25/19 16:57 EKG Documentation Completion [RC] STAT Chest 2V [CR] Stat 09/25/19 17:30 Blood Culture x2 Reflex Set [OM.PC] Stat 09/25/19 17:45 CULTURE BLOOD [BC] Stat 09/25/19 17:50 CULTURE BLOOD [BC] Stat Plan: PLEASE SEE RN NOTE FOR PFSH. PLEASE USE ER H&P ADMIT H&P
[2019-09-25 17:28] LABS: CHLORIDE,CL 102 mEq/L (98-106); SODIUM,NA 136 mEq/L (136-145)
[2019-09-25] MEDS ORDERED: Furosemide 40 MG/4 ML VIAL IVPUSH ONE (17:55)
[2019-09-25] MEDS ORDERED: Enoxaparin 30 MG/0.3 ML Syringe SUBCUT SCH (18:48)
[2019-09-25] MEDS ORDERED: Docusate Sodium 100 MG Cap PO PRN (18:48)
[2019-09-25] MEDS ORDERED: Albuterol/Ipratropium 3.0-0.5 MG/3 ML Neb Soln NEB PRN (18:48)
[2019-09-25] MEDS ORDERED: Morphine 2 MG/ML Syringe IVPUSH PRN (18:48)
[2019-09-25] MEDS ORDERED: Temazepam 15 MG Cap PO PRN (18:48)
[2019-09-25] MEDS ORDERED: Acetaminophen 325 MG Tab PO PRN (18:48)
[2019-09-25] MEDS ORDERED: Codeine/guaiFENesin 100mg-10 MG/5 ML Soln 118 ML Bottle PO PRN (18:48)
[2019-09-25] MEDS ORDERED: Albuterol/Ipratropium 3.0-0.5 MG/3 ML Neb Soln INH PRN (18:48)
[2019-09-25] MEDS ORDERED: BUDESONIDE INH SCH (20:00)
[2019-09-25] MEDS ORDERED: BUDESONIDE NEB SCH (20:30)
[2019-09-25] MEDS: Gabapentin 100 MG Cap PO SCH (20:50)
[2019-09-25] MEDS: Budesonide 0.5 MG/2 ML Neb Susp NEB SCH (20:52)
[2019-09-25] MEDS: Albuterol/Ipratropium 3.0-0.5 MG/3 ML Neb Soln NEB SCH (20:52)
[2019-09-25] MEDS: Insulin NPH HUM/REG Insulin HM 100 UNIT/ML 3 ML Vial SQ SCH (21:29)
[2019-09-26] MEDS: Pantoprazole 40 MG Tab.CR PO SCH (06:53)
[2019-09-26] MEDS: Furosemide 40 MG/4 ML VIAL IVPUSH SCH (07:42)
[2019-09-26] MEDS: Aspirin 81 MG Tab.Chew PO SCH (07:46)
[2019-09-26] MEDS: Allopurinol 100 MG Tab PO SCH (07:46)
[2019-09-26] MEDS: Gabapentin 100 MG Cap PO SCH ×3 (07:46→19:55)
[2019-09-26] MEDS: buPROPion 150 MG Tab.ER PO SCH (07:47)
[2019-09-26] MEDS: Diltiazem 120 MG Cap.CD PO SCH (07:47)
[2019-09-26] MEDS: Beta-Carotene (Vitamin A) w/Vitamin C & E plus Minerals Tab PO SCH (07:47)
[2019-09-26] MEDS: amLODIPine 2.5 MG Tab PO SCH (07:47)
[2019-09-26] MEDS: Budesonide 0.5 MG/2 ML Neb Susp NEB SCH ×2 (07:54→20:05)
[2019-09-26] MEDS: Polyethylene Glycol 3350 Powder 17 GM Packet PO SCH (07:54)
[2019-09-26] MEDS: Albuterol/Ipratropium 3.0-0.5 MG/3 ML Neb Soln NEB SCH ×4 (07:55→20:05)
[2019-09-26] MEDS ORDERED: Ferrous Sulfate 324 MG Tab.EC PO SCH (08:00)
[2019-09-26] MEDS ORDERED: Furosemide 80 MG Tab PO SCH (08:00)
[2019-09-26] MEDS: Ferrous Sulfate 324 MG Tab.EC PO SCH (08:02)
[2019-09-26] MEDS: Insulin NPH HUM/REG Insulin HM 100 UNIT/ML 3 ML Vial SQ SCH ×2 (08:03→16:38)
--- NOTE | 2019-09-26 10:16 | PCM.PN ---
- General Info Date of Service: 09/26/19 Functional Status: Reports: Pain Controlled, Tolerating Diet - Review of Systems General: Reports: No Symptoms. Denies: Fever HEENT: Reports: Post Nasal Drip Pulmonary: Reports: Shortness of Breath (little better compared to yesterday) Cardiovascular: Reports: Dyspnea on Exertion, Edema. Denies: Chest Pain, Palpitations, Lightheadedness Gastrointestinal: Reports: No Symptoms. Denies: Abdominal Pain, Vomiting Genitourinary: Reports: No Symptoms Musculoskeletal: Reports: No Symptoms Skin: Reports: No Symptoms Neurological: Reports: No Symptoms Psychiatric: Reports: No Symptoms - Patient Data Vitals - Most Recent: Last Vital Signs Temp 97.6 F 09/26/19 07:32 Pulse 55 L 09/26/19 07:47 Resp 20 09/26/19 07:32 BP 158/52 H 09/26/19 07:47 Pulse Ox 94 L 09/26/19 07:32 Weight - Most Recent: 244 lb 3.2 oz I&O - Last 24 Hours: Intake & Output 09/25/19 09/26/19 09/26/19 22:59 06:59 14:59 Intake Total 180 50 Output Total 250 325 Balance -70 -275 Lab Results Last 24 Hours: Laboratory Results - last 24 hr 09/25/19 09/25/19 09/25/19 Range/Units 16:57 16:57 17:00 WBC 8.9 (5.0-10.0) 10^3/uL RBC 3.36 L (4.00-5.50) 10^6/uL Hgb 10.8 L (12.0-16.0) g/dL Hct 32.3 L (37.0-47.0) % MCV 96.1 H (82.0-94.0) fL MCH 32.1 H (27.0-32.0) pg MCHC 33.4 (33.0-38.0) g/dL RDW Coeff of Taniya 13.6 (11.0-15.0) % Plt Count 287 (150-400) 10^3/uL Neut % (Auto) 65.7 (35-85) % Lymph % (Auto) 20.8 (10-55) % [place] % (Auto) 6.4 (0-16) % Eos % (Auto) 6.6 H (0-5) % Baso % (Auto) 0.5 (0-3) % Neut # (Auto) 5.82 (1.80-7.00) 10^3/uL Lymph # (Auto) 1.84 (1.00-4.80) 10^3/uL [place] # (Auto) 0.57 (0.00-0.80) 10^3/uL Eos # (Auto) 0.58 H (0.00-0.45) 10^3/uL Baso # (Auto) 0.04 10^3/uL PT 10.5 (9.7-12.3) SEC INR 1.04 (0.92-1.18) Sodium 136 (136-145) mEq/L Potassium 4.8 (3.5-5.0) mEq/L Chloride 102 (98-106) mEq/L Carbon Dioxide 25 (21-32) mmol/L BUN 56 H D (7-18) mg/dL Creatinine 2.2 H (0.6-1.0) mg/dL Est Cr Clr Drug Dosing 22.97 mL/min Estimated GFR (MDRD) 22 L (>=60) mL/min Glucose 193 H D (75-99) mg/dL POC Glucose (75-105) mg/dl Lactic Acid (0.4-2.0) mmol/L Calcium 8.9 (8.4-10.1) mg/dL Total Bilirubin 0.5 (0.0-1.0) mg/dL AST 19 (15-37) U/L ALT 19 (12-78) U/L Alkaline Phosphatase 152 H (46-116) U/L Lactate Dehydrogenase 230 H (100-190) U/L Creatine Kinase 44 (21-215) U/L Troponin I < 0.017 (0.00-0.06) ng/mL C-Reactive Protein (0.2-0.8) mg/dL NT-Pro-B Natriuret Pep 65139 H (0-1000) pg/mL Total Protein 6.8 (6.4-8.2) g/dL Albumin 3.3 L (3.4-5.0) g/dL Urine Color (YELLOW) Urine Appearance (CLEAR) Urine pH (4.5-8.0) Ur Specific [place] (1.003-1.020) Urine Protein (NEGATIVE) mg/dL Urine Glucose (UA) (NEGATIVE) mg/dL Urine Ketones (NEGATIVE) mg/dL Urine Occult Blood (NEGATIVE) Urine Nitrite (NEGATIVE) Urine Bilirubin (NEGATIVE) Urine Urobilinogen (0.2-1.0) EU/dL Ur Leukocyte Esterase (NEGATIVE) Urine RBC (0-5) /HPF Urine WBC (0-5) /HPF Urine WBC Clumps (NOT SEEN) /HPF Ur Squamous Epith Cells (NOT SEEN) /HPF Urine Bacteria (NOT SEEN) /HPF Urine Mucus (NOT SEEN) /HPF Urinalysis Comment SARS-CoV-2 RNA (RT-PCR) (NEGATIVE) 09/25/19 09/25/19 09/25/19 Range/Units 17:08 17:30 17:30 WBC (5.0-10.0) 10^3/uL RBC (4.00-5.50) 10^6/uL Hgb (12.0-16.0) g/dL Hct (37.0-47.0) % MCV (82.0-94.0) fL MCH (27.0-32.0) pg MCHC (33.0-38.0) g/dL RDW Coeff of [place]ani[place] (11.0-15.0) % Plt Count (150-400) 10^3/uL Neut % (Auto) (35-85) % Lymph % (Auto) (10-55) % [place] % (Auto) (0-16) % Eos % (Auto) (0-5) % Baso % (Auto) (0-3) % Neut # (Auto) (1.80-7.00) 10^3/uL Lymph # (Auto) (1.00-4.80) 10^3/uL [place] # (Auto) (0.00-0.80) 10^3/uL Eos # (Auto) (0.00-0.45) 10^3/uL Baso # (Auto) 10^3/uL PT (9.7-12.3) SEC INR (0.92-1.18) Sodium (136-145) mEq/L Potassium (3.5-5.0) mEq/L Chloride (98-106) mEq/L Carbon Dioxide (21-32) mmol/L BUN (7-18) mg/dL Creatinine (0.6-1.0) mg/dL Est Cr Clr Drug Dosing mL/min Estimated GFR (MDRD) (>=60) mL/min Glucose (75-99) mg/dL POC Glucose (75-105) mg/dl Lactic Acid 0.9 (0.4-2.0) mmol/L Calcium (8.4-10.1) mg/dL Total Bilirubin (0.0-1.0) mg/dL AST (15-37) U/L ALT (12-78) U/L Alkaline Phosphatase (46-116) U/L Lactate Dehydrogenase (100-190) U/L Creatine Kinase (21-215) U/L Troponin I (0.00-0.06) ng/mL C-Reactive Protein 2.3 H (0.2-0.8) mg/dL NT-Pro-B Natriuret Pep (0-1000) pg/mL Total Protein (6.4-8.2) g/dL Albumin (3.4-5.0) g/dL Urine Color (YELLOW) Urine Appearance (CLEAR) Urine pH (4.5-8.0) Ur Specific [place] (1.003-1.020) Urine Protein (NEGATIVE) mg/dL Urine Glucose (UA) (NEGATIVE) mg/dL Urine Ketones (NEGATIVE) mg/dL Urine Occult Blood (NEGATIVE) Urine Nitrite (NEGATIVE) Urine Bilirubin (NEGATIVE) Urine Urobilinogen (0.2-1.0) EU/dL Ur Leukocyte Esterase (NEGATIVE) Urine RBC (0-5) /HPF Urine WBC (0-5) /HPF Urine WBC Clumps (NOT SEEN) /HPF Ur Squamous Epith Cells (NOT SEEN) /HPF Urine Bacteria (NOT SEEN) /HPF Urine Mucus (NOT SEEN) /HPF Urinalysis Comment SARS-CoV-2 RNA (RT-PCR) Negative (NEGATIVE) 09/25/19 09/25/19 09/26/19 Range/Units 18:30 20:10 07:15 WBC 8.9 (5.0-10.0) 10^3/uL RBC 3.26 L (4.00-5.50) 10^6/uL Hgb 10.4 L (12.0-16.0) g/dL Hct 31.5 L (37.0-47.0) % MCV 96.6 H (82.0-94.0) fL MCH 31.9 (27.0-32.0) pg MCHC 33.0 (33.0-38.0) g/dL RDW Coeff of [place]ani[place] 13.6 (11.0-15.0) % Plt Count 298 (150-400) 10^3/uL Neut % (Auto) 58.4 (35-85) % Lymph % (Auto) 25.7 (10-55) % [place] % (Auto) 7.0 (0-16) % Eos % (Auto) 8.3 H (0-5) % Baso % (Auto) 0.6 (0-3) % Neut # (Auto) 5.21 (1.80-7.00) 10^3/uL Lymph # (Auto) 2.29 (1.00-4.80) 10^3/uL [place] # (Auto) 0.62 (0.00-0.80) 10^3/uL Eos # (Auto) 0.74 H (0.00-0.45) 10^3/uL Baso # (Auto) 0.05 10^3/uL PT (9.7-12.3) SEC INR (0.92-1.18) Sodium (136-145) mEq/L Potassium (3.5-5.0) mEq/L Chloride (98-106) mEq/L Carbon Dioxide (21-32) mmol/L BUN (7-18) mg/dL Creatinine (0.6-1.0) mg/dL Est Cr Clr Drug Dosing mL/min Estimated GFR (MDRD) (>=60) mL/min Glucose (75-99) mg/dL POC Glucose 147 H (75-105) mg/dl Lactic Acid (0.4-2.0) mmol/L Calcium (8.4-10.1) mg/dL Total Bilirubin (0.0-1.0) mg/dL AST (15-37) U/L ALT (12-78) U/L Alkaline Phosphatase (46-116) U/L Lactate Dehydrogenase (100-190) U/L Creatine Kinase (21-215) U/L Troponin I (0.00-0.06) ng/mL C-Reactive Protein (0.2-0.8) mg/dL NT-Pro-B Natriuret Pep (0-1000) pg/mL Total Protein (6.4-8.2) g/dL Albumin (3.4-5.0) g/dL Urine Color Dark yellow (YELLOW) Urine Appearance Slightly cloudy (CLEAR) Urine pH 5.0 (4.5-8.0) Ur Specific [place] 1.025 H (1.003-1.020) Urine Protein >=300 H (NEGATIVE) mg/dL Urine Glucose (UA) Negative (NEGATIVE) mg/dL Urine Ketones Negative (NEGATIVE) mg/dL Urine Occult Blood Negative (NEGATIVE) Urine Nitrite Negative (NEGATIVE) Urine Bilirubin Negative (NEGATIVE) Urine Urobilinogen 1.0 (0.2-1.0) EU/dL Ur Leukocyte Esterase Moderate H (NEGATIVE) Urine RBC Not seen (0-5) /HPF Urine WBC 40-50 H (0-5) /HPF Urine WBC Clumps Few H (NOT SEEN) /HPF Ur Squamous Epith Cells Many H (NOT SEEN) /HPF Urine Bacteria Moderate H (NOT SEEN) /HPF Urine Mucus Few H (NOT SEEN) /HPF Urinalysis Comment SARS-CoV-2 RNA (RT-PCR) (NEGATIVE) 09/26/19 09/26/19 Range/Units 07:15 07:39 WBC (5.0-10.0) 10^3/uL RBC (4.00-5.50) 10^6/uL Hgb (12.0-16.0) g/dL Hct (37.0-47.0) % MCV (82.0-94.0) fL MCH (27.0-32.0) pg MCHC (33.0-38.0) g/dL RDW Coeff of [place] (11.0-15.0) % Plt Count (150-400) 10^3/uL Neut % (Auto) (35-85) % Lymph % (Auto) (10-55) % [place] % (Auto) (0-16) % Eos % (Auto) (0-5) % Baso % (Auto) (0-3) % Neut # (Auto) (1.80-7.00) 10^3/uL Lymph # (Auto) (1.00-4.80) 10^3/uL [place] # (Auto) (0.00-0.80) 10^3/uL Eos # (Auto) (0.00-0.45) 10^3/uL Baso # (Auto) 10^3/uL PT (9.7-12.3) SEC INR (0.92-1.18) Sodium 139 (136-145) mEq/L Potassium 4.7 (3.5-5.0) mEq/L Chloride 103 (98-106) mEq/L Carbon Dioxide 28 (21-32) mmol/L BUN 54 H (7-18) mg/dL Creatinine 2.1 H (0.6-1.0) mg/dL Est Cr Clr Drug Dosing 24.07 mL/min Estimated GFR (MDRD) 23 L (>=60) mL/min Glucose 69 L D (75-99) mg/dL POC Glucose 77 (75-105) mg/dl Lactic Acid (0.4-2.0) mmol/L Calcium 8.7 (8.4-10.1) mg/dL Total Bilirubin (0.0-1.0) mg/dL AST (15-37) U/L ALT (12-78) U/L Alkaline Phosphatase (46-116) U/L Lactate Dehydrogenase (100-190) U/L Creatine Kinase (21-215) U/L Troponin I (0.00-0.06) ng/mL C-Reactive Protein (0.2-0.8) mg/dL NT-Pro-B Natriuret Pep (0-1000) pg/mL Total Protein (6.4-8.2) g/dL Albumin (3.4-5.0) g/dL Urine Color (YELLOW) Urine Appearance (CLEAR) Urine pH (4.5-8.0) Ur Specific [place] (1.003-1.020) Urine Protein (NEGATIVE) mg/dL Urine Glucose (UA) (NEGATIVE) mg/dL Urine Ketones (NEGATIVE) mg/dL Urine Occult Blood (NEGATIVE) Urine Nitrite (NEGATIVE) Urine Bilirubin (NEGATIVE) Urine Urobilinogen (0.2-1.0) EU/dL Ur Leukocyte Esterase (NEGATIVE) Urine RBC (0-5) /HPF Urine WBC (0-5) /HPF Urine WBC Clumps (NOT SEEN) /HPF Ur Squamous Epith Cells (NOT SEEN) /HPF Urine Bacteria (NOT SEEN) /HPF Urine Mucus (NOT SEEN) /HPF Urinalysis Comment SARS-CoV-2 RNA (RT-PCR) (NEGATIVE) Med Orders - Current: Current Medications Acetaminophen (Tylenol) 650 mg PO Q4H PRN PRN Reason: Pain (Mild 1-3)/fever Albuterol/Ipratropium (Duoneb 3.0-0.5 Mg/3 Ml) 3 ml NEB Q4H PRN PRN Reason: Shortness Of Breath/wheezing Albuterol/Ipratropium (Duoneb 3.0-0.5 Mg/3 Ml) 3 ml NEB QIDRT [facility] Last Admin: 09/26/19 07:55 Dose: 3 ml Allopurinol (Zyloprim) 100 mg PO DAILY [facility] Last Admin: 09/26/19 07:46 Dose: 100 mg Amlodipine Besylate (Norvasc) 5 mg PO DAILY [facility] Last Admin: 09/26/19 07:47 Dose: 5 mg Aspirin (Aspirin) 81 mg PO DAILY [facility] Last Admin: 09/26/19 07:46 Dose: 81 mg Budesonide (Pulmicort) 0.5 mg NEB BIDRT [facility] Last Admin: 09/26/19 07:54 Dose: 0.5 mg Bupropion HCl (Wellbutrin Xl) 300 mg PO DAILY [facility] Last Admin: 09/26/19 07:47 Dose: 300 mg Diltiazem HCl (Cardizem Cd) 240 mg PO DAILY [facility] Last Admin: 09/26/19 07:47 Dose: 240 mg Docusate Sodium (Colace) 100 mg PO BID PRN PRN Reason: Constipation Enoxaparin Sodium (Lovenox) 30 mg SUBCUT Q24H [facility] Last Admin: 09/25/19 20:51 Dose: 30 mg Ferrous Sulfate (Ferrous Sulfate) 324 mg PO DAILY [facility] Last Admin: 09/26/19 08:02 Dose: 324 mg Furosemide (Lasix) 40 mg IVPUSH Q24H [facility] Last Admin: 09/26/19 07:42 Dose: 40 mg Gabapentin (Neurontin) 100 mg PO TID [facility] Last Admin: 09/26/19 07:46 Dose: 100 mg Guaifenesin/Codeine Phosphate (Robitussin Ac) 10 ml PO Q4H PRN PRN Reason: Cough Insulin NPH Beef/Pork (Humulin 70-30) 8 unit SQ ACDINNER [facility] Last Admin: 09/25/19 21:29 Dose: 8 unit Insulin NPH Beef/Pork (Humulin 70-30) 16 unit SQ DAILY [facility] Last Admin: 09/26/19 08:03 Dose: Not Given Morphine Sulfate (Morphine) 2 mg IVPUSH Q2H PRN PRN Reason: Pain (severe 7-10) Multivitamins/Minerals (Prosight) 1 tab PO DAILY [facility] Last Admin: 09/26/19 07:47 Dose: 1 tab Ondansetron HCl (Zofran) 4 mg IV Q6H PRN PRN Reason: Nausea/Vomiting Pantoprazole Sodium (Protonix) 40 mg PO ACBREAKFAST [facility] Last Admin: 09/26/19 06:53 Dose: 40 mg Polyethylene Glycol (Miralax) 17 gm PO DAILY [facility] Last Admin: 09/26/19 07:54 Dose: 17 gm Temazepam (Restoril) 15 mg PO BEDTIME PRN PRN Reason: Sleep Discontinued Medications Albuterol/Ipratropium (Duoneb 3.0-0.5 Mg/3 Ml) ml INH QID PRN PRN Reason: Shortness of Breath Ferrous Sulfate (Ferrous Sulfate) 325 mg PO DAILY [facility] Furosemide (Lasix) 40 mg IVPUSH ONETIME ONE Stop: 09/25/19 17:56 Last Admin: 09/25/19 18:07 Dose: 40 mg Non-Formulary Medication (Budesonide [Pulmicort]) 1 inh INH BID [facility] Last Admin: 09/25/19 21:02 Dose: Not Given - Exam General: Alert, Oriented, Cooperative, No Acute Distress Neck: Supple Lungs: Normal Respiratory Effort, Decreased Breath Sounds (BLL), Rales Cardiovascular: Regular Rate (68 on exam), Regular Rhythm, Gallops Back Exam: Normal Inspection Extremities: Normal Range of Motion, Non-Tender, Normal Capillary Refill, Pedal Edema (+3 BLE) Peripheral Pulses: 2+: Radial (L), Radial (R), Posterior Tibial (L), Posterior Tibial (R), Dorsalis Pedis (L), Dorsalis Pedis (R) Skin: Warm, Dry, Intact Neurological: No New Focal Deficit Psy/Mental Status: Alert, Normal Affect, Normal Mood Sepsis Event Note - Evaluation Sepsis Screening Result: No Definite Risk - Focused Exam Vital Signs: Vital Signs Temp Pulse Pulse Resp BP BP Pulse Ox 09/26/19 07:47 55 L 158/52 H 06/13/20 07:32 97.6 F 55 L 20 158/52 H 94 L 09/26/19 04:00 97.5 F 54 L 16 149/53 H 94 L 09/25/19 23:58 97.0 F 55 L 16 135/43 L 95 Date Exam was Performed: 09/26/19 Time Exam was Performed: 13:29 - Problem List Review Problem List Initiated/Reviewed/Updated: Yes - My Orders Last 24 Hours: My Active Orders 09/25/19 16:57 Chest 2V [CR] Stat 09/25/19 17:30 Blood Culture x2 Reflex Set [OM.PC] Stat 09/25/19 17:45 CULTURE BLOOD [BC] Stat 09/25/19 17:50 CULTURE BLOOD [BC] Stat 09/25/19 18:30 CULTURE URINE [RM] Routine 09/25/19 18:33 Resuscitation Status Routine 09/25/19 18:48 Patient Status [ADT] Routine Antiembolic Devices [RC] 1000,2200 Cardiac Monitoring [RC] 0800,2000 Height and Weight [RC] 0500 Intake and Output [RC] 0600,1800 Notify Provider Vital Signs [RC] .PRN Oxygen Therapy [RC] .PRN Pulse Oximetry [RC] .PRN RT Aerosol Therapy [RC] 0800,1200,1600,2000 Up With Assistance [RC] .PRN Up to Chair [RC] .PRN Vital Signs [RC] 0000,0400,0800,1200,1600,2000 Acetaminophen [Tylenol] 650 mg PO Q4H PRN Albuterol/Ipratropium [DuoNeb 3.0-0.5 MG/3 ML] 3 ml NEB Q4H PRN Codeine/guaiFENesin [Robitussin AC] 10 ml PO Q4H PRN Docusate Sodium [Colace] 100 mg PO BID PRN Enoxaparin [Lovenox] 30 mg SUBCUT Q24H Morphine Sulfate [Morphine] 2 mg IVPUSH Q2H PRN Ondansetron [Zofran] 4 mg IV Q6H PRN Temazepam [Restoril] 15 mg PO BEDTIME PRN Antiembolic Hose [OM.PC] Per Unit Routine 09/25/19 19:23 Accu Check [Blood Glucose Check, Bedside] [RC] 0730,1130,1700,2030 09/25/19 20:00 Albuterol/Ipratropium [DuoNeb 3.0-0.5 MG/3 ML] 3 ml NEB QIDRT Gabapentin [Neurontin] 100 mg PO TID 09/25/19 20:43 Budesonide [Pulmicort] 0.5 mg NEB BIDRT 09/25/19 21:00 Insulin NPH Hum/Reg Insulin Hm [Humulin 70-30] 8 unit SQ ACDINNER 09/26/19 07:00 Pantoprazole [ProTONIX] 40 mg PO ACBREAKFAST 09/26/19 08:00 Aspirin 81 mg PO DAILY Beta-Carotene(A) w/C & E/Min [Prosight] 1 tab PO DAILY Diltiazem [Cardizem CD] 240 mg PO DAILY Ferrous Sulfate 324 mg PO DAILY Furosemide [Lasix] 40 mg IVPUSH Q24H Insulin NPH Hum/Reg Insulin Hm [Humulin 70-30] 16 unit SQ DAILY allopurinoL [Zyloprim] 100 mg PO DAILY amLODIPine [Norvasc] 5 mg PO DAILY buPROPion [Wellbutrin XL] 300 mg PO DAILY polyethylene glycoL 3350 [MiraLAX] 17 gm PO DAILY 09/27/19 05:00 BASIC METABOLIC PANEL,BMP [CHEM] DAILY CBC WITH AUTO DIFF [HEME] DAILY 09/28/19 05:00 BASIC METABOLIC PANEL,BMP [CHEM] DAILY CBC WITH AUTO DIFF [HEME] DAILY - Plan Plan:: This patient was admitted yesterday for shortness of breath due to chf exacerbation. She was started on IV Lasix and admitted. Patient today reports she is feeling a little less short of breath. She reports that she does have mucous in her throat. She reports a nonproductive cough, that is chronic. Patient CXR shows Right base pleural effusion chronic, but worsened and also a new Left lower lobe effusion with opacities bilateral. Patient does not have elevated wbc or fever. vitals stable. I started her on IV Lasix another 20mg in the evening for 2 days in addition to her 40mg IV daily in morning. Her labs yesterday were BUN 56, CR 2.2, BNP 15,110, CRP 2.3. Today labs are BUN 54, CR 2.1, Glucose this morning 69 corrected. Due to patient opacities, I have also started this patient on Rocephin and Zithromax IV. Will continue admit to Diurese and IV ABX.
[2019-09-26] MEDS: cefTRIAXone 1 GM Vial IVPUSH SCH (10:54)
[2019-09-26] MEDS: Azithromycin 500 MG in Sodium Chloride 0.9% 250 ML IV SCH (10:55)
[2019-09-26] MEDS: Furosemide 20 MG/2 ML VIAL IVPUSH SCH (19:55)
[2019-09-26] MEDS: Enoxaparin 30 MG/0.3 ML Syringe SUBCUT SCH (19:55)
[2019-09-27] MEDS: Pantoprazole 40 MG Tab.CR PO SCH (06:54)
[2019-09-27] MEDS: Furosemide 40 MG/4 ML VIAL IVPUSH SCH (07:29)
[2019-09-27] MEDS: Albuterol/Ipratropium 3.0-0.5 MG/3 ML Neb Soln NEB SCH ×4 (07:29→20:37)
[2019-09-27] MEDS: Budesonide 0.5 MG/2 ML Neb Susp NEB SCH ×2 (07:32→20:37)
[2019-09-27] MEDS: amLODIPine 2.5 MG Tab PO SCH (07:33)
[2019-09-27] MEDS: Aspirin 81 MG Tab.Chew PO SCH (07:33)
[2019-09-27] MEDS: Gabapentin 100 MG Cap PO SCH ×3 (07:33→20:37)
[2019-09-27] MEDS: Diltiazem 120 MG Cap.CD PO SCH (07:34)
[2019-09-27] MEDS: Ferrous Sulfate 324 MG Tab.EC PO SCH (07:34)
[2019-09-27] MEDS: Allopurinol 100 MG Tab PO SCH (07:34)
[2019-09-27] MEDS: buPROPion 150 MG Tab.ER PO SCH (07:34)
[2019-09-27] MEDS: Polyethylene Glycol 3350 Powder 17 GM Packet PO SCH (07:35)
[2019-09-27] MEDS: Beta-Carotene (Vitamin A) w/Vitamin C & E plus Minerals Tab PO SCH (07:35)
[2019-09-27] MEDS: Insulin NPH HUM/REG Insulin HM 100 UNIT/ML 3 ML Vial SQ SCH ×2 (09:03→17:02)
--- NOTE | 2019-09-27 11:40 | PCM.PN ---
- General Info Date of Service: 09/27/19 Functional Status: Reports: Pain Controlled, Tolerating Diet, Ambulating - Review of Systems General: Reports: Weakness (generalized), Fatigue HEENT: Reports: No Symptoms Pulmonary: Reports: Shortness of Breath (little better than yesterday ), Cough ( dry) Cardiovascular: Reports: Dyspnea on Exertion, Orthopnea, Edema. Denies: Chest Pain, Palpitations, Lightheadedness Gastrointestinal: Reports: No Symptoms Genitourinary: Reports: No Symptoms Musculoskeletal: Reports: No Symptoms Skin: Reports: No Symptoms Neurological: Reports: No Symptoms Psychiatric: Reports: No Symptoms - Patient Data Vitals - Most Recent: Last Vital Signs Temp 98.1 F 09/27/19 07:25 Pulse 58 L 09/27/19 07:34 Resp 20 09/27/19 07:25 BP 155/50 H 09/27/19 07:34 Pulse Ox 96 09/27/19 07:25 Weight - Most Recent: 242 lb 9.6 oz I&O - Last 24 Hours: Intake & Output 09/26/19 09/27/19 09/27/19 22:59 06:59 14:59 Intake Total 1040 400 Output Total 1200 600 Balance -160 -200 Lab Results Last 24 Hours: Laboratory Results - last 24 hr 09/26/19 09/26/19 09/27/19 Range/Units 16:34 20:19 07:10 WBC 9.1 (5.0-10.0) 10^3/uL RBC 3.27 L (4.00-5.50) 10^6/uL Hgb 10.5 L (12.0-16.0) g/dL Hct 31.9 L (37.0-47.0) % MCV 97.6 H (82.0-94.0) fL MCH 32.1 H (27.0-32.0) pg MCHC 32.9 L (33.0-38.0) g/dL RDW Coeff of Taniya 13.8 (11.0-15.0) % Plt Count 296 (150-400) 10^3/uL Neut % (Auto) 61.9 (35-85) % Lymph % (Auto) 23.5 (10-55) % Fulton % (Auto) 5.7 (0-16) % Eos % (Auto) 8.6 H (0-5) % Baso % (Auto) 0.3 (0-3) % Neut # (Auto) 5.60 (1.80-7.00) 10^3/uL Lymph # (Auto) 2.13 (1.00-4.80) 10^3/uL Fulton # (Auto) 0.52 (0.00-0.80) 10^3/uL Eos # (Auto) 0.78 H (0.00-0.45) 10^3/uL Baso # (Auto) 0.03 10^3/uL Sodium (136-145) mEq/L Potassium (3.5-5.0) mEq/L Chloride (98-106) mEq/L Carbon Dioxide (21-32) mmol/L BUN (7-18) mg/dL Creatinine (0.6-1.0) mg/dL Est Cr Clr Drug Dosing mL/min Estimated GFR (MDRD) (>=60) mL/min Glucose (75-99) mg/dL POC Glucose 143 H 96 (75-105) mg/dl Calcium (8.4-10.1) mg/dL NT-Pro-B Natriuret Pep (0-1000) pg/mL 09/27/19 09/27/19 Range/Units 07:10 07:23 WBC (5.0-10.0) 10^3/uL RBC (4.00-5.50) 10^6/uL Hgb (12.0-16.0) g/dL Hct (37.0-47.0) % MCV (82.0-94.0) fL MCH (27.0-32.0) pg MCHC (33.0-38.0) g/dL RDW Coeff of Taniya (11.0-15.0) % Plt Count (150-400) 10^3/uL Neut % (Auto) (35-85) % Lymph % (Auto) (10-55) % Fulton % (Auto) (0-16) % Eos % (Auto) (0-5) % Baso % (Auto) (0-3) % Neut # (Auto) (1.80-7.00) 10^3/uL Lymph # (Auto) (1.00-4.80) 10^3/uL Fulton # (Auto) (0.00-0.80) 10^3/uL Eos # (Auto) (0.00-0.45) 10^3/uL Baso # (Auto) 10^3/uL Sodium 139 (136-145) mEq/L Potassium 4.5 (3.5-5.0) mEq/L Chloride 103 (98-106) mEq/L Carbon Dioxide 26 (21-32) mmol/L BUN 52 H (7-18) mg/dL Creatinine 2.0 H (0.6-1.0) mg/dL Est Cr Clr Drug Dosing 25.27 mL/min Estimated GFR (MDRD) 24 L (>=60) mL/min Glucose 97 D (75-99) mg/dL POC Glucose 99 (75-105) mg/dl Calcium 8.7 (8.4-10.1) mg/dL NT-Pro-B Natriuret Pep 10257 H (0-1000) pg/mL Tony Results Last 24 Hours: Microbiology 09/25/19 17:50 Aerobic Blood Culture - Preliminary Blood - Venous - Lab Draw NO GROWTH AFTER 1 DAY Anaerobic Blood Culture - Preliminary NO GROWTH AFTER 1 DAY 09/25/19 17:45 Aerobic Blood Culture - Preliminary Blood - Venous NO GROWTH AFTER 1 DAY Anaerobic Blood Culture - Preliminary NO GROWTH AFTER 1 DAY Med Orders - Current: Current Medications Acetaminophen (Tylenol) 650 mg PO Q4H PRN PRN Reason: Pain (Mild 1-3)/fever Albuterol/Ipratropium (Duoneb 3.0-0.5 Mg/3 Ml) 3 ml NEB Q4H PRN PRN Reason: Shortness Of Breath/wheezing Albuterol/Ipratropium (Duoneb 3.0-0.5 Mg/3 Ml) 3 ml NEB QIDRT [facility] Last Admin: 09/27/19 07:29 Dose: 3 ml Allopurinol (Zyloprim) 100 mg PO DAILY [facility] Last Admin: 09/27/19 07:34 Dose: 100 mg Amlodipine Besylate (Norvasc) 5 mg PO DAILY [facility] Last Admin: 09/27/19 07:33 Dose: 5 mg Aspirin (Aspirin) 81 mg PO DAILY [facility] Last Admin: 09/27/19 07:33 Dose: 81 mg Budesonide (Pulmicort) 0.5 mg NEB BIDRT [facility] Last Admin: 09/27/19 07:32 Dose: 0.5 mg Bupropion HCl (Wellbutrin Xl) 300 mg PO DAILY [facility] Last Admin: 09/27/19 07:34 Dose: 300 mg Ceftriaxone Sodium (Rocephin) 1 gm IVPUSH Q24H [facility] Last Admin: 09/26/19 10:54 Dose: 1 gm Diltiazem HCl (Cardizem Cd) 240 mg PO DAILY [facility] Last Admin: 09/27/19 07:34 Dose: 240 mg Docusate Sodium (Colace) 100 mg PO BID PRN PRN Reason: Constipation Enoxaparin Sodium (Lovenox) 30 mg SUBCUT Q24H [facility] Last Admin: 09/26/19 19:55 Dose: 30 mg Ferrous Sulfate (Ferrous Sulfate) 324 mg PO DAILY [facility] Last Admin: 09/27/19 07:34 Dose: 324 mg Furosemide (Lasix) 40 mg IVPUSH Q24H [facility] Last Admin: 09/27/19 07:29 Dose: 40 mg Furosemide (Lasix) 20 mg IVPUSH Q24H [facility] Stop: 09/27/19 21:00 Last Admin: 09/26/19 19:55 Dose: 20 mg Gabapentin (Neurontin) 100 mg PO TID [facility] Last Admin: 09/27/19 07:33 Dose: 100 mg Guaifenesin/Codeine Phosphate (Robitussin Ac) 10 ml PO Q4H PRN PRN Reason: Cough Azithromycin 500 mg/ Sodium (Chloride) 250 mls @ 250 mls/hr IV Q24H [facility] Last Admin: 09/26/19 10:55 Dose: 250 mls/hr Insulin NPH Beef/Pork (Humulin 70-30) 8 unit SQ ACDINNER [facility] Last Admin: 09/26/19 16:38 Dose: 8 unit Insulin NPH Beef/Pork (Humulin 70-30) 16 unit SQ DAILY [facility] Last Admin: 09/27/19 09:03 Dose: 16 unit Morphine Sulfate (Morphine) 2 mg IVPUSH Q2H PRN PRN Reason: Pain (severe 7-10) Multivitamins/Minerals (Prosight) 1 tab PO DAILY [facility] Last Admin: 09/27/19 07:35 Dose: 1 tab Ondansetron HCl (Zofran) 4 mg IV Q6H PRN PRN Reason: Nausea/Vomiting Pantoprazole Sodium (Protonix) 40 mg PO ACBREAKFAST [facility] Last Admin: 09/27/19 06:54 Dose: 40 mg Polyethylene Glycol (Miralax) 17 gm PO DAILY [facility] Last Admin: 09/27/19 07:35 Dose: Not Given Temazepam (Restoril) 15 mg PO BEDTIME PRN PRN Reason: Sleep Discontinued Medications Albuterol/Ipratropium (Duoneb 3.0-0.5 Mg/3 Ml) ml INH QID PRN PRN Reason: Shortness of Breath Enoxaparin Sodium (Lovenox) 30 mg SUBCUT Q24H [facility] Last Admin: 09/25/19 20:51 Dose: 30 mg Ferrous Sulfate (Ferrous Sulfate) 325 mg PO DAILY [facility] Furosemide (Lasix) 40 mg IVPUSH ONETIME ONE Stop: 09/25/19 17:56 Last Admin: 09/25/19 18:07 Dose: 40 mg Non-Formulary Medication (Budesonide [Pulmicort]) 1 inh INH BID [facility] Last Admin: 09/25/19 21:02 Dose: Not Given - Exam General: Alert, Oriented, Cooperative, No Acute Distress Neck: Supple, Trachea Midline Lungs: Decreased Breath Sounds (BLL), Rhonchi (BLL Mild), Wheezing (diffuse) Cardiovascular: Regular Rate, Regular Rhythm GI/Abdominal Exam: Soft, Non-Tender Back Exam: Normal Inspection, Full Range of Motion Extremities: Normal Range of Motion, Non-Tender, Normal Capillary Refill, Pedal Edema (+2 BLE) Peripheral Pulses: 2+: Radial (L), Radial (R), Posterior Tibial (L), Posterior Tibial (R) Skin: Warm, Dry, Intact Psy/Mental Status: Alert, Normal Affect, Normal Mood Sepsis Event Note - Evaluation Sepsis Screening Result: No Definite Risk - Focused Exam Vital Signs: Vital Signs Temp Pulse Pulse Resp BP BP Pulse Ox 09/27/19 07:34 58 L 155/50 H 09/27/19 07:33 155/50 H 09/27/19 07:25 98.1 F 58 L 20 155/50 H 96 09/27/19 03:31 98.0 F 56 L 16 146/40 H 96 09/26/19 23:40 97.6 F 73 16 136/45 L 98 Date Exam was Performed: 09/27/19 Time Exam was Performed: 11:35 - Problem List Review Problem List Initiated/Reviewed/Updated: Yes - My Orders Last 24 Hours: My Active Orders 09/26/19 20:00 Enoxaparin [Lovenox] 30 mg SUBCUT Q24H Furosemide [Lasix] 20 mg IVPUSH Q24H 09/28/19 05:00 BASIC METABOLIC PANEL,BMP [CHEM] DAILY CBC WITH AUTO DIFF [HEME] DAILY PRO B-TYPE NATRIUR PEPT,BNPPRO [CHEM] DAILY - Plan Plan:: 09/26/2019 0850am This patient was admitted yesterday for shortness of breath due to chf exacerbation. She was started on IV Lasix and admitted. Patient today reports she is feeling a little less short of breath. She reports that she does have mucous in her throat. She reports a nonproductive cough, that is chronic. Patient CXR shows Right base pleural effusion chronic, but worsened and also a new Left lower lobe effusion with opacities bilateral. Patient does not have elevated wbc or fever. vitals stable. I started her on IV Lasix another 20mg in the evening for 2 days in addition to her 40mg IV daily in morning. Her labs yesterday were BUN 56, CR 2.2, BNP 15,110, CRP 2.3. Today labs are BUN 54, CR 2.1, Glucose this morning 69 corrected. Due to patient opacities, I have also started this patient on Rocephin and Zithromax IV. Will continue admit to Diurese and IV ABX. 09/27/2019 1110am This patient today reports that she is feeling a little less short of breath today. She reports that she feels like her edema has improved a little. She does report that she does feel a little fatigued or generally weak today. She does report that she has been up ambulating with walker with some shortness of breath. The patient labs today are BUN 52, CR 2.0, and BNP [id number], so some improvement. The plan will be to continue her abxs and lasix IV. PCP will see tomorrow and determine further plan. The patient does not appear to be in distress. She does have a breathing treatment due now, RN instructed to give.
[2019-09-27] MEDS: Azithromycin 500 MG in Sodium Chloride 0.9% 250 ML IV SCH (11:45)
[2019-09-27] MEDS: cefTRIAXone 1 GM Vial IVPUSH SCH (11:46)
[2019-09-27] MEDS: Ondansetron 4 MG/2 ML SDV IV PRN ×2 (13:01→23:47)
[2019-09-27] MEDS: Furosemide 20 MG/2 ML VIAL IVPUSH SCH (20:38)
[2019-09-27] MEDS: Enoxaparin 30 MG/0.3 ML Syringe SUBCUT SCH (20:39)
[2019-09-28] MEDS: Pantoprazole 40 MG Tab.CR PO SCH (06:55)
[2019-09-28] MEDS: Furosemide 40 MG/4 ML VIAL IVPUSH SCH ×2 (07:48→19:34)
[2019-09-28] MEDS: Diltiazem 120 MG Cap.CD PO SCH (07:57)
[2019-09-28] MEDS: Aspirin 81 MG Tab.Chew PO SCH (07:57)
[2019-09-28] MEDS: Budesonide 0.5 MG/2 ML Neb Susp NEB SCH ×2 (07:57→20:43)
[2019-09-28] MEDS: Albuterol/Ipratropium 3.0-0.5 MG/3 ML Neb Soln NEB SCH ×4 (07:57→20:33)
[2019-09-28] MEDS: amLODIPine 2.5 MG Tab PO SCH (07:57)
[2019-09-28] MEDS: buPROPion 150 MG Tab.ER PO SCH (07:57)
[2019-09-28] MEDS: Ferrous Sulfate 324 MG Tab.EC PO SCH (07:58)
[2019-09-28] MEDS: Beta-Carotene (Vitamin A) w/Vitamin C & E plus Minerals Tab PO SCH (07:58)
[2019-09-28] MEDS: Allopurinol 100 MG Tab PO SCH (07:58)
[2019-09-28] MEDS: Gabapentin 100 MG Cap PO SCH ×3 (07:58→19:32)
[2019-09-28] MEDS: Polyethylene Glycol 3350 Powder 17 GM Packet PO SCH (07:59)
[2019-09-28] MEDS: Insulin NPH HUM/REG Insulin HM 100 UNIT/ML 3 ML Vial SQ SCH ×2 (09:20→18:15)
[2019-09-28] MEDS: Nitroglycerin 2% Oint 1 GM UD Packet TOP SCH ×2 (09:38→16:41)
[2019-09-28] MEDS: cefTRIAXone 1 GM Vial IVPUSH SCH (10:15)
[2019-09-28] MEDS: Enoxaparin 30 MG/0.3 ML Syringe SUBCUT SCH (19:33)
--- NOTE | 2019-09-28 19:47 | PN ---
DATE: 09/28/2019 S: Lucila was admitted from [facility], her basic care at [facility], with increased heart failure. She is a very fragile female, who has had ongoing issues with heart failure and renal failure. We recently had diuresed her a little over-aggressive about 3 months ago. We backed off her diuretics and held her ARB as her creatinine was up to 3.8. She came down nicely with the creatinine coming down to 1.4 or 1.6 area and she was stable with her current dose for almost 2-1/2 months. She had been having any issues with weight gain. They have been doing daily weights and she had been holding her own until about a week ago when she went up about 6 pounds and had increased shortness of breath, dyspnea on exertion, and peripheral edema. She has been given IV Lasix since here and her weights are only down minimally. She denies any increase in shortness of breath or pain. O: VITAL SIGNS: Her vitals have been stable. Blood pressures are running in the 140s to 150s. NECK: She has a small amount of resting JVD, has bibasilar crackles up to mid lung bases. CARDIAC: Tones appear regular. ABDOMEN: Obese. EXTREMITIES: Have one to 2+ edema. ASSESSMENT: 1. CONGESTIVE HEART FAILURE EXACERBATION. 2. HYPERTENSION. 3. TYPE 2 DIABETES, REQUIRING INSULIN. P: We will increase her Lasix to 40 b.i.d. I will put her on a nitro paste. In the past, she has not tolerated the ARBs due to her creatinine bouncing very high. Once we get her stabilized, she may be a good candidate for a low-dose beta osman instead of her Norvasc. We will continue to monitor her closely. KEVIN/BAILEY /[id number]
[2019-09-29] MEDS: Nitroglycerin 2% Oint 1 GM UD Packet TOP SCH ×3 (00:30→17:37)
[2019-09-29] MEDS: Pantoprazole 40 MG Tab.CR PO SCH (06:50)
[2019-09-29] MEDS: Budesonide 0.5 MG/2 ML Neb Susp NEB SCH ×2 (07:22→20:19)
[2019-09-29] MEDS: Albuterol/Ipratropium 3.0-0.5 MG/3 ML Neb Soln NEB SCH ×4 (07:22→20:19)
[2019-09-29] MEDS: Aspirin 81 MG Tab.Chew PO SCH (07:23)
[2019-09-29] MEDS: amLODIPine 2.5 MG Tab PO SCH (07:23)
[2019-09-29] MEDS: Beta-Carotene (Vitamin A) w/Vitamin C & E plus Minerals Tab PO SCH (07:24)
[2019-09-29] MEDS: Allopurinol 100 MG Tab PO SCH (07:24)
[2019-09-29] MEDS: Diltiazem 120 MG Cap.CD PO SCH (07:25)
[2019-09-29] MEDS: buPROPion 150 MG Tab.ER PO SCH (07:25)
[2019-09-29] MEDS: Ferrous Sulfate 324 MG Tab.EC PO SCH (07:25)
[2019-09-29] MEDS: Gabapentin 100 MG Cap PO SCH ×3 (07:26→19:37)
[2019-09-29] MEDS: Furosemide 40 MG/4 ML VIAL IVPUSH SCH ×2 (07:26→19:37)
[2019-09-29] MEDS: Polyethylene Glycol 3350 Powder 17 GM Packet PO SCH ×2 (07:26→07:38)
[2019-09-29] MEDS: Insulin NPH HUM/REG Insulin HM 100 UNIT/ML 3 ML Vial SQ SCH ×2 (07:41→17:39)
[2019-09-29] MEDS ORDERED: Codeine/guaiFENesin 10-100 MG/5 ML Syrup 5 ML Cup PO PRN (14:03)
--- NOTE | 2019-09-29 15:56 | PN ---
DATE: 09/29/2019 S: Lucila's weights continue to run about the same. She has about a 2000 mL fluid deficit to the good, but she was on IV antibiotics throughout the week and she is satting better. She is requiring about 1.5 L O2. She continues to be exertionally dyspneic. In the past, she has been on ARB. Her creatinine does not tolerate it and she shoots zach high related to her chronic renal failure. She is on diltiazem for rate control for her paroxysmal AFib. She in the past had her Coreg discontinued while in [place]. O: GENERAL: Today, she is pleasant and cooperative. NECK: She has no resting JVD. LUNGS: She continues to have bibasilar crackles, but appears to have improved air movement. CARDIAC: Tones appear irregular. ABDOMEN: Obese and soft. EXTREMITIES: Continue to have 1+ to 2 edema from the knees down to the feet. ASSESSMENT: 1. ACUTE EXACERBATION OF CHRONIC CONGESTIVE HEART FAILURE. 2. HYPERTENSION. 3. TYPE 2 DIABETES, REQUIRING INSULIN. 4. [id number] RENAL FAILURE. P: Weights are still a little tenuous. She just got her elevated dose of evening Lasix last night and we will continue to follow her. Counseled her again about the importance of a low-sodium diet and she understands. We should have her off O2 today and we will continue to follow her closely. KEVIN/BAILEY /[id number]
[2019-09-29] MEDS: Enoxaparin 30 MG/0.3 ML Syringe SUBCUT SCH (19:37)
[2019-09-30] MEDS: Nitroglycerin 2% Oint 1 GM UD Packet TOP SCH ×3 (00:34→17:44)
[2019-09-30] MEDS: Aspirin 81 MG Tab.Chew PO SCH (08:21)
[2019-09-30] MEDS: Pantoprazole 40 MG Tab.CR PO SCH (08:21)
[2019-09-30] MEDS: buPROPion 150 MG Tab.ER PO SCH (08:21)
[2019-09-30] MEDS: Diltiazem 120 MG Cap.CD PO SCH (08:21)
[2019-09-30] MEDS: Gabapentin 100 MG Cap PO SCH ×3 (08:21→19:31)
[2019-09-30] MEDS: Budesonide 0.5 MG/2 ML Neb Susp NEB SCH ×2 (08:21→19:29)
[2019-09-30] MEDS: Albuterol/Ipratropium 3.0-0.5 MG/3 ML Neb Soln NEB SCH ×4 (08:21→19:30)
[2019-09-30] MEDS: amLODIPine 2.5 MG Tab PO SCH (08:22)
[2019-09-30] MEDS: Furosemide 40 MG/4 ML VIAL IVPUSH SCH ×2 (08:22→19:25)
[2019-09-30] MEDS: Beta-Carotene (Vitamin A) w/Vitamin C & E plus Minerals Tab PO SCH (08:22)
[2019-09-30] MEDS: Ferrous Sulfate 324 MG Tab.EC PO SCH (08:22)
[2019-09-30] MEDS: Allopurinol 100 MG Tab PO SCH (08:22)
[2019-09-30] MEDS: Polyethylene Glycol 3350 Powder 17 GM Packet PO SCH (08:23)
[2019-09-30] MEDS: Insulin NPH HUM/REG Insulin HM 100 UNIT/ML 3 ML Vial SQ SCH ×2 (08:23→17:44)
--- NOTE | 2019-09-30 09:56 | PCM.PN ---
- General Info Date of Service: 09/30/19 Admission Dx/Problem (Free Text): Acute exacerbation of chronic congestive heart failure Type II DM, on insulin Acute on Chronic Kidney Failure Subjective Update: Lucila is a 74 yo female who was admitted 09/25/2019 for acute exacerbation of congestive heart failure. She has had decent diuresis with ~ 4 L deficit to net I & O, however weight has not changed much since admission. We have been doing 40 mg lasix IVP BID. She continues to have exertional dyspnea. She has been weaned to 0.5 L O2. Attempted to wean O2 to RA, however her O2 sats drop to 88% with this, so she has remained on 0.5 L O2. She denies any chest pain or dizziness. She did have repeat CXR yesterday, which showed no changes from previous. Has small bilateral pleural effusions. Patient reports that starting last evening she has had some right sided mid back pain. She reports she was also having some neck discomfort last night, but that has improved and now she just has sharp pain located in right mid back area. She reports pain is worse with breathing. She describes the pain as sharp. She denies any other new complaints today. Functional Status: Reports: Tolerating Diet, Urinating, New Symptoms (right posterior rib pain) - Review of Systems General: Reports: Weakness, Fatigue. Denies: Fever, Malaise, Chills HEENT: Reports: No Symptoms Pulmonary: Reports: Shortness of Breath, Pleuritic Chest Pain, Cough. Denies: Sputum, Hemoptysis Cardiovascular: Reports: Dyspnea on Exertion, Orthopnea, Edema. Denies: Lightheadedness Gastrointestinal: Reports: Decreased Appetite. Denies: Abdominal Pain, Diarrhea, Nausea, Vomiting Genitourinary: Reports: No Symptoms Musculoskeletal: Reports: Neck Pain, Back Pain Skin: Reports: No Symptoms Neurological: Reports: Dizziness, Weakness. Denies: Confusion, Headache, Numbness, Tingling Psychiatric: Reports: No Symptoms - Patient Data Vitals - Most Recent: Last Vital Signs Temp 97.8 F 09/30/19 08:00 Pulse 80 09/30/19 08:21 Resp 18 09/30/19 08:00 BP 153/50 H 09/30/19 08:22 Pulse Ox 98 09/30/19 08:00 Weight - Most Recent: 244 lb 6.4 oz I&O - Last 24 Hours: Intake & Output 09/29/19 09/30/19 09/30/19 22:59 06:59 14:59 Intake Total 1100 360 Output Total 1200 650 Balance -100 -290 Lab Results Last 24 Hours: Laboratory Results - last 24 hr 09/29/19 09/29/19 09/29/19 Range/Units 11:54 17:36 20:35 WBC (5.0-10.0) 10^3/uL RBC (4.00-5.50) 10^6/uL Hgb (12.0-16.0) g/dL Hct (37.0-47.0) % MCV (82.0-94.0) fL MCH (27.0-32.0) pg MCHC (33.0-38.0) g/dL RDW Coeff of Taniya (11.0-15.0) % Plt Count (150-400) 10^3/uL Neut % (Auto) (35-85) % Lymph % (Auto) (10-55) % [facility] % (Auto) (0-16) % Eos % (Auto) (0-5) % Baso % (Auto) (0-3) % Neut # (Auto) (1.80-7.00) 10^3/uL Lymph # (Auto) (1.00-4.80) 10^3/uL [facility] # (Auto) (0.00-0.80) 10^3/uL Eos # (Auto) (0.00-0.45) 10^3/uL Baso # (Auto) 10^3/uL D-Dimer, Quantitative (0.00-0.50) Sodium (136-145) mEq/L Potassium (3.5-5.0) mEq/L Chloride (98-106) mEq/L Carbon Dioxide (21-32) mmol/L BUN (7-18) mg/dL Creatinine (0.6-1.0) mg/dL Est Cr Clr Drug Dosing mL/min Estimated GFR (MDRD) (>=60) mL/min Glucose (75-99) mg/dL POC Glucose 148 H 134 H 117 H (75-105) mg/dl Calcium (8.4-10.1) mg/dL NT-Pro-B Natriuret Pep (0-1000) pg/mL 09/30/19 09/30/19 09/30/19 Range/Units 07:25 08:45 08:45 WBC (5.0-10.0) 10^3/uL RBC (4.00-5.50) 10^6/uL Hgb (12.0-16.0) g/dL Hct (37.0-47.0) % MCV (82.0-94.0) fL MCH (27.0-32.0) pg MCHC (33.0-38.0) g/dL RDW Coeff of Taniya (11.0-15.0) % Plt Count (150-400) 10^3/uL Neut % (Auto) (35-85) % Lymph % (Auto) (10-55) % [facility] % (Auto) (0-16) % Eos % (Auto) (0-5) % Baso % (Auto) (0-3) % Neut # (Auto) (1.80-7.00) 10^3/uL Lymph # (Auto) (1.00-4.80) 10^3/uL [facility] # (Auto) (0.00-0.80) 10^3/uL Eos # (Auto) (0.00-0.45) 10^3/uL Baso # (Auto) 10^3/uL D-Dimer, Quantitative 2.01 H (0.00-0.50) Sodium 139 (136-145) mEq/L Potassium 4.3 (3.5-5.0) mEq/L Chloride 102 (98-106) mEq/L Carbon Dioxide 29 (21-32) mmol/L BUN 51 H (7-18) mg/dL Creatinine 1.9 H (0.6-1.0) mg/dL Est Cr Clr Drug Dosing 26.60 mL/min Estimated GFR (MDRD) 26 L (>=60) mL/min Glucose 130 H (75-99) mg/dL POC Glucose 99 (75-105) mg/dl Calcium 8.9 (8.4-10.1) mg/dL NT-Pro-B Natriuret Pep 24423 H (0-1000) pg/mL 09/30/19 Range/Units 08:45 WBC 8.6 (5.0-10.0) 10^3/uL RBC 3.18 L (4.00-5.50) 10^6/uL Hgb 10.2 L (12.0-16.0) g/dL Hct 31.1 L (37.0-47.0) % MCV 97.8 H (82.0-94.0) fL MCH 32.1 H (27.0-32.0) pg MCHC 32.8 L (33.0-38.0) g/dL RDW Coeff of Taniya 13.9 (11.0-15.0) % Plt Count 267 (150-400) 10^3/uL Neut % (Auto) 61.4 (35-85) % Lymph % (Auto) 23.6 (10-55) % [facility] % (Auto) 7.2 (0-16) % Eos % (Auto) 7.5 H (0-5) % Baso % (Auto) 0.3 (0-3) % Neut # (Auto) 5.30 (1.80-7.00) 10^3/uL Lymph # (Auto) 2.04 (1.00-4.80) 10^3/uL [facility] # (Auto) 0.62 (0.00-0.80) 10^3/uL Eos # (Auto) 0.65 H (0.00-0.45) 10^3/uL Baso # (Auto) 0.03 10^3/uL D-Dimer, Quantitative (0.00-0.50) Sodium (136-145) mEq/L Potassium (3.5-5.0) mEq/L Chloride (98-106) mEq/L Carbon Dioxide (21-32) mmol/L BUN (7-18) mg/dL Creatinine (0.6-1.0) mg/dL Est Cr Clr Drug Dosing mL/min Estimated GFR (MDRD) (>=60) mL/min Glucose (75-99) mg/dL POC Glucose (75-105) mg/dl Calcium (8.4-10.1) mg/dL NT-Pro-B Natriuret Pep (0-1000) pg/mL Tony Results Last 24 Hours: Microbiology 09/25/19 17:50 Aerobic Blood Culture - Preliminary Blood - Venous - Lab Draw NO GROWTH AFTER 4 DAYS Anaerobic Blood Culture - Preliminary NO GROWTH AFTER 4 DAYS 09/25/19 17:45 Aerobic Blood Culture - Preliminary Blood - Venous NO GROWTH AFTER 4 DAYS Anaerobic Blood Culture - Preliminary NO GROWTH AFTER 4 DAYS Med Orders - Current: Current Medications Acetaminophen (Tylenol) 650 mg PO Q4H PRN PRN Reason: Pain (Mild 1-3)/fever Albuterol/Ipratropium (Duoneb 3.0-0.5 Mg/3 Ml) 3 ml NEB Q4H PRN PRN Reason: Shortness Of Breath/wheezing Albuterol/Ipratropium (Duoneb 3.0-0.5 Mg/3 Ml) 3 ml NEB QIDRT [facility] Last Admin: 09/30/19 08:21 Dose: 3 ml Documented by: Allopurinol (Zyloprim) 100 mg PO DAILY [facility] Last Admin: 09/30/19 08:22 Dose: 100 mg Documented by: Amlodipine Besylate (Norvasc) 5 mg PO DAILY [facility] Last Admin: 09/30/19 08:22 Dose: 5 mg Documented by: Aspirin (Aspirin) 81 mg PO DAILY [facility] Last Admin: 09/30/19 08:21 Dose: 81 mg Documented by: Budesonide (Pulmicort) 0.5 mg NEB BIDRT [facility] Last Admin: 09/30/19 08:21 Dose: 0.5 mg Documented by: Bupropion HCl (Wellbutrin Xl) 300 mg PO DAILY [facility] Last Admin: 09/30/19 08:21 Dose: 300 mg Documented by: Diltiazem HCl (Cardizem Cd) 240 mg PO DAILY [facility] Last Admin: 09/30/19 08:21 Dose: 240 mg Documented by: Docusate Sodium (Colace) 100 mg PO BID PRN PRN Reason: Constipation Enoxaparin Sodium (Lovenox) 30 mg SUBCUT Q24H [facility] Last Admin: 09/29/19 19:37 Dose: 30 mg Documented by: Ferrous Sulfate (Ferrous Sulfate) 324 mg PO DAILY [facility] Last Admin: 09/30/19 08:22 Dose: 324 mg Documented by: Furosemide (Lasix) 40 mg IVPUSH Q12H [facility] Last Admin: 09/30/19 08:22 Dose: 40 mg Documented by: Gabapentin (Neurontin) 100 mg PO TID [facility] Last Admin: 09/30/19 08:21 Dose: 100 mg Documented by: Guaifenesin/Codeine Phosphate (Robitussin Ac) 10 ml PO Q4H PRN PRN Reason: Cough Insulin NPH Beef/Pork (Humulin 70-30) 8 unit SQ ACDINNER [facility] Last Admin: 09/29/19 17:39 Dose: 8 unit Documented by: Insulin NPH Beef/Pork (Humulin 70-30) 16 unit SQ DAILY [facility] Last Admin: 09/30/19 08:23 Dose: Not Given Documented by: Morphine Sulfate (Morphine) 2 mg IVPUSH Q2H PRN PRN Reason: Pain (severe 7-10) Multivitamins/Minerals (Prosight) 1 tab PO DAILY [facility] Last Admin: 09/30/19 08:22 Dose: 1 tab Documented by: Nitroglycerin (Nitro-Bid 2%) 1 gm TOP Q8H [facility] Last Admin: 09/30/19 08:25 Dose: 1 gm Documented by: Ondansetron HCl (Zofran) 4 mg IV Q6H PRN PRN Reason: Nausea/Vomiting Last Admin: 09/27/19 23:47 Dose: 4 mg Documented by: Pantoprazole Sodium (Protonix) 40 mg PO ACBREAKFAST [facility] Last Admin: 09/30/19 08:21 Dose: 40 mg Documented by: Polyethylene Glycol (Miralax) 17 gm PO DAILY [facility] Last Admin: 09/30/19 08:23 Dose: Not Given Documented by: Temazepam (Restoril) 15 mg PO BEDTIME PRN PRN Reason: Sleep Discontinued Medications Albuterol/Ipratropium (Duoneb 3.0-0.5 Mg/3 Ml) ml INH QID PRN PRN Reason: Shortness of Breath Ceftriaxone Sodium (Rocephin) 1 gm IVPUSH Q24H [facility] Last Admin: 09/28/19 10:15 Dose: 1 gm Documented by: Enoxaparin Sodium (Lovenox) 30 mg SUBCUT Q24H [facility] Last Admin: 09/25/19 20:51 Dose: 30 mg Documented by: Ferrous Sulfate (Ferrous Sulfate) 325 mg PO DAILY [facility] Furosemide (Lasix) 40 mg IVPUSH ONETIME ONE Stop: 09/25/19 17:56 Last Admin: 09/25/19 18:07 Dose: 40 mg Documented by: Furosemide (Lasix) 40 mg IVPUSH Q24H [facility] Last Admin: 09/28/19 07:48 Dose: 40 mg Documented by: Furosemide (Lasix) 20 mg IVPUSH Q24H [facility] Stop: 09/27/19 21:00 Last Admin: 09/27/19 20:38 Dose: 20 mg Documented by: Guaifenesin/Codeine Phosphate (Robitussin Ac) 10 ml PO Q4H PRN PRN Reason: Cough Azithromycin 500 mg/ Sodium (Chloride) 250 mls @ 250 mls/hr IV Q24H [facility] Last Admin: 09/27/19 11:45 Dose: 250 mls/hr Documented by: Non-Formulary Medication (Budesonide [Pulmicort]) 1 inh INH BID [facility] Last Admin: 09/25/19 21:02 Dose: Not Given Documented by: - Exam Quality Assessment: Supplemental Oxygen, DVT Prophylaxis General: Alert, Oriented, No Acute Distress Neck: Supple. No: JVD Lungs: Normal Respiratory Effort, Crackles (bilateral bases) Cardiovascular: Regular Rate, Irregular Rhythm GI/Abdominal Exam: Normal Bowel Sounds, Soft, Non-Tender Back Exam: Normal Inspection, Full Range of Motion, Other (no tenderness noted to area of patients pain right mid/lower back). No: CVA Tenderness (L), CVA Tenderness (R), Paraspinal Tenderness, Vertebral Tenderness Extremities: Normal Capillary Refill, Pedal Edema (1+ pitting edema knees to f eet) Neurological: No New Focal Deficit Psy/Mental Status: Alert, Depressed, Other (Tearful) Sepsis Event Note - Evaluation Sepsis Screening Result: No Definite Risk - Focused Exam Vital Signs: Vital Signs Temp Pulse Pulse Resp BP BP Pulse Ox 09/30/19 08:22 153/50 H 09/30/19 08:21 80 153/50 H 09/30/19 08:00 97.8 F 80 18 153/50 H 98 09/30/19 04:00 98.5 F 61 18 150/91 H 94 L 09/30/19 00:00 97.3 F 65 16 145/56 H 97 Date Exam was Performed: 09/30/19 Time Exam was Performed: 13:48 - Problem List & Annotations (1) Acute exacerbation of CHF (congestive heart failure) SNOMED Code(s): 505836644, 07124174689614 Code(s): I50.9 - HEART FAILURE, UNSPECIFIED Status: Acute Priority: High Current Visit: No Qualifiers: Heart failure type: systolic Qualified Code(s): I50.23 - Acute on chronic systolic (congestive) heart failure (2) Chronic kidney disease (CKD) stage G3b/A1, moderately decreased glomerular filtration rate (GFR) between 30-44 mL/min/1.73 square meter and albuminuria creatinine ratio less than 30 mg/g SNOMED Code(s): 174200299, 174819044 Code(s): N18.3 - CHRONIC KIDNEY DISEASE, STAGE 3 (MODERATE) Status: Acute Priority: High Current Visit: No (3) Diabetes mellitus type 2 SNOMED Code(s): 77395249 Code(s): E11.9 - TYPE 2 DIABETES MELLITUS WITHOUT COMPLICATIONS Status: Chronic Priority: Medium Current Visit: No (4) HTN, Benign essential hypertension SNOMED Code(s): 9236330 Code(s): I10 - ESSENTIAL (PRIMARY) HYPERTENSION Status: Chronic Priority: Medium Current Visit: No - Problem List Review Problem List Initiated/Reviewed/Updated: Yes - My Orders Last 24 Hours: My Active Orders 09/30/19 08:16 PT Evaluation and Treatment [CONS] Routine - Assessment Assessment:: Acute exacerbation of chronic congestive heart failure Acute on Chronic Kidney Disease Type II DM requiring insulin - Plan Plan:: Patient with new symptoms of right posterior mid back pain. Pain is worsened with deep breathing. We have been unable to wean her off O2. She has O2 saturations of 96-99% while on 0.5 L via NC but drops to 88% saturations while on RA. With this new onset pain and continued hypoxia, I have concern for PE. D Dimer is elevated to 2, however we are unable to complete CTA chest due to elevated creatinine. She also has paroxysmal atrial fib. Was anticoagulated in the past but was discontinued due to GI bleed. Has been on 30 mg Lovenox during hospitalization. Has been very inactive due to dyspnea on exertion. Patient currently on Protonix. Will prophylactically treat for PE. Start Eliquis 2.5 mg BID. Hgb stable at 10.1. Will try to get patient more active. Consult PT. Try to encourage ambulation as patient is able. ProBNP elevated again today to 13,589. I & Os are favorable, with approximately 4 L diuresis since admit, however patient's weight has been unchanged since admit. Will increase Lasix to 60 mg BID. Continue to monitor strict I & Os and daily weights. Creatinine stable at 1.9. Did discuss case and management with Dr. Oliveira, who was agreeable with these changes.
[2019-09-30] MEDS: Apixaban 5 MG Tab PO SCH ×2 (12:05→19:31)
[2019-09-30] MEDS ORDERED: Furosemide 20 MG/2 ML VIAL IVPUSH ONE (14:00)
[2019-09-30] MEDS: Acetaminophen/HYDROcodone 325-5 MG Tab PO PRN ×2 (14:22→21:39)
[2019-10-01] MEDS: Nitroglycerin 2% Oint 1 GM UD Packet TOP SCH ×2 (01:07→08:17)
[2019-10-01] MEDS: Pantoprazole 40 MG Tab.CR PO SCH (06:45)
[2019-10-01] MEDS: Ondansetron 4 MG/2 ML SDV IV PRN (07:46)
[2019-10-01] MEDS: buPROPion 150 MG Tab.ER PO SCH (07:59)
[2019-10-01] MEDS: amLODIPine 2.5 MG Tab PO SCH (08:00)
[2019-10-01] MEDS: Beta-Carotene (Vitamin A) w/Vitamin C & E plus Minerals Tab PO SCH (08:00)
[2019-10-01] MEDS: Aspirin 81 MG Tab.Chew PO SCH (08:00)
[2019-10-01] MEDS: Diltiazem 120 MG Cap.CD PO SCH (08:00)
[2019-10-01] MEDS: Gabapentin 100 MG Cap PO SCH (08:00)
[2019-10-01] MEDS: Allopurinol 100 MG Tab PO SCH (08:00)
[2019-10-01] MEDS: Ferrous Sulfate 324 MG Tab.EC PO SCH (08:00)
[2019-10-01] MEDS: Budesonide 0.5 MG/2 ML Neb Susp NEB SCH (08:01)
[2019-10-01] MEDS: Polyethylene Glycol 3350 Powder 17 GM Packet PO SCH ×2 (08:02→08:06)
[2019-10-01] MEDS: Albuterol/Ipratropium 3.0-0.5 MG/3 ML Neb Soln NEB SCH ×2 (08:04→12:32)
[2019-10-01 08:05] VITALS: PULSE 61
[2019-10-01] MEDS: Furosemide 40 MG/4 ML VIAL IVPUSH SCH (08:05)
[2019-10-01] MEDS: Apixaban 5 MG Tab PO SCH (08:05)
[2019-10-01] MEDS: Insulin NPH HUM/REG Insulin HM 100 UNIT/ML 3 ML Vial SQ SCH (08:13)
[2019-10-01 12:36] VITALS: BP 154/56
--- NOTE | 2019-10-02 04:32 | DISCH ---
ADMISSION DIAGNOSIS: Exacerbation of congestive heart failure. DISCHARGE DIAGNOSIS: 1. ACUTE CONGESTIVE HEART FAILURE EXACERBATION. 2. ACUTE ON CHRONIC RENAL FAILURE. 3. TYPE 2 DIABETES, REQUIRING INSULIN. 4. HYPERTENSION. 5. PAROXYSMAL ATRIAL FIBRILLATION. 6. PLEURITIC CHEST PAIN. HISTORY: The patient is a very fragile 74-year-old currently residing at a basic care facility near the [facility] in [place], [place]. She has a history of ongoing issues with CHF and chronic renal insufficiency. She presented with increase in peripheral edema and shortness of breath, and she was evaluated in our emergency room, where Fabian Villanueva evaluated her and ultimately admitted her for acute CHF. HOSPITAL COURSE: The patient initially, I believe, had low-dose IV Lasix started. She was given IV antibiotics in the worry that there may be some associated pneumonia. Her CRP and white counts have been normal, and that has ultimately been discontinued. Chest x-ray confirmed cephalization of vessels and some small pleural effusions bilaterally with increased heart size. Over the course of her 5 days, she had adequate fluid balance loss with IV Lasix, but she did not drop her weights much. We were able to wean her almost off O2. She is on 1/2 L, and when we remove that completely, she does drop to about 88%. On it, she is running in the high 90s. We did increase her Lasix from 40 initially to 40 b.i.d., and then, ultimately, she is now on 60 b.i.d., and she is starting to have better output. Her renal functions have been stable. Her blood pressures were a little high, and in the past, she has been on ARB and ACEs, but her renal function has not tolerated it as of late, and she has been discontinued. We did put her on some topical nitroglycerin, which has helped her pressures. We do want to switch her off the Norvasc and put her on low-dose Coreg. In the past, she did have a little bradycardia, and we will cautiously monitor that in swing bed. Yesterday, she woke up with a little pleuritic pain in her right back. At that point, a D-dimer was done, and it was 2. We ultimately could not do a CT of her chest to evaluate for PE, and she has not had any significant drop in her sats since this happened. Because she has a history of paroxysmal atrial fibrillation, we did elect to just empirically treat her with Eliquis. She does have a history of GI bleed in the past. We put her on oral Protonix, and we will continue to monitor her hemoglobins closely. At this time, she needs ongoing therapy for rehab. We will continue to cautiously diurese, monitor vitals, etc., in swing bed. The patient, I believe, had an echocardiogram within the last year or two in [place]. Her last one here was in 2015, and a repeat echocardiogram has been ordered. COMPLICATIONS: During her stay were none. CONSULTATIONS: PT. DISPOSITION: Discharge to swing bed. TIM /[id number]
== END 2019-10-01 12:59 | disposition swing bed (61) | DRG 291 ==
LOC: CC.ED 16:52 → CC.MS 18:11 → CC.ED 18:29 → UNDOADMIN 18:30 → CC.MS 18:30
PROVIDERS: ADMIT Nurse Practitioner; ATTEND Family Medicine
DX: I11.0 Hypertensive heart disease with heart failure (principal); I13.0 Hypertensive heart and chronic kidney disease with heart failure and stage 1 through stage 4 chronic kidney disease, or unspecified chronic kidney disease; I50.23 Acute on chronic systolic (congestive) heart failure; M19.90 Unspecified osteoarthritis, unspecified site; N17.9 Acute kidney failure, unspecified; E11.9 Type 2 diabetes mellitus without complications; Z95.828 Presence of other vascular implants and grafts; N18.3 Chronic kidney disease, stage 3 (moderate); E11.22 Type 2 diabetes mellitus with diabetic chronic kidney disease; I25.10 Atherosclerotic heart disease of native coronary artery without angina pectoris; Z88.6 Allergy status to analgesic agent; F41.9 Anxiety disorder, unspecified; Z91.048 Other nonmedicinal substance allergy status; F32.9 Major depressive disorder, single episode, unspecified; Z96.649 Presence of unspecified artificial hip joint; Z79.51 Long term (current) use of inhaled steroids; Z96.659 Presence of unspecified artificial knee joint; Z88.8 Allergy status to other drugs, medicaments and biological substances; Z88.5 Allergy status to narcotic agent; Z91.09 Other allergy status, other than to drugs and biological substances; Z79.82 Long term (current) use of aspirin; Z79.4 Long term (current) use of insulin; Z79.899 Other long term (current) drug therapy; Z90.49 Acquired absence of other specified parts of digestive tract
CPT/HCPCS: 36415; 71046; 80053; 82550; 83605; 83615; 83880; 84484; 85025; 85610; 86140; 87040 ×2; 93005; 96374; 99285; J1940; U0002; 80048; 81001; 82962; 85379; 87086; 93010; 93306; 94640; 97161-GP; A9270-GY; J0456; J0696; J1650; J1815-GY; J2405; J7050; J7620-GY

== ENCOUNTER 2019-10-01 13:01 | Inpatient (IN) | payer MEDICARE, OTHER, MEDICAID ==
[2019-10-01] MEDS ORDERED: Morphine 2 MG/ML Syringe IVPUSH PRN (15:42)
[2019-10-01] MEDS ORDERED: Temazepam 15 MG Cap PO PRN (15:42)
[2019-10-01] MEDS ORDERED: Acetaminophen 325 MG Tab PO PRN (15:42)
[2019-10-01] MEDS ORDERED: Albuterol/Ipratropium 3.0-0.5 MG/3 ML Neb Soln NEB PRN (15:42)
[2019-10-01] MEDS ORDERED: Acetaminophen/HYDROcodone 325-5 MG Tab PO PRN (15:42)
[2019-10-01] MEDS ORDERED: Ondansetron 4 MG/2 ML SDV IV PRN (15:42)
[2019-10-01] MEDS ORDERED: Codeine/guaiFENesin 10-100 MG/5 ML Syrup 5 ML Cup PO PRN (15:42)
[2019-10-01] MEDS ORDERED: Albuterol/Ipratropium 3.0-0.5 MG/3 ML Neb Soln INH PRN (15:48)
[2019-10-01] MEDS ORDERED: Albuterol/Ipratropium 3.0-0.5 MG/3 ML Neb Soln NEB SCH (16:00)
[2019-10-01] MEDS: Albuterol/Ipratropium 3.0-0.5 MG/3 ML Neb Soln NEB SCH ×2 (17:23→20:08)
[2019-10-01] MEDS: Insulin NPH HUM/REG Insulin HM 100 UNIT/ML 3 ML Vial SQ SCH (17:25)
[2019-10-01] MEDS ORDERED: Nitroglycerin 2% Oint 1 GM UD Packet TOP SCH (18:00)
[2019-10-01] MEDS ORDERED: Budesonide 0.5 MG/2 ML Neb Susp NEB SCH (20:00)
[2019-10-01] MEDS ORDERED: Gabapentin 100 MG Cap PO SCH (20:00)
[2019-10-01] MEDS ORDERED: [UNRECOGNIZED DRUG - OTHER] SQ SCH (20:00)
[2019-10-01] MEDS ORDERED: INSULIN ASPART SQ SCH (20:00)
[2019-10-01] MEDS ORDERED: INSULIN ASPART PROTAMINE SQ SCH (20:00)
[2019-10-01] MEDS: Furosemide 40 MG/4 ML VIAL IVPUSH SCH (20:02)
[2019-10-01] MEDS: Budesonide 0.5 MG/2 ML Neb Susp NEB SCH (20:08)
[2019-10-01] MEDS: Apixaban 5 MG Tab PO SCH (20:09)
[2019-10-01] MEDS: Gabapentin 100 MG Cap PO SCH (20:09)
[2019-10-01] MEDS: Nitroglycerin 2% Oint 1 GM UD Packet TOP SCH (22:00)
[2019-10-02] MEDS: Pantoprazole 40 MG Tab.CR PO SCH (06:20)
[2019-10-02] MEDS: Nitroglycerin 2% Oint 1 GM UD Packet TOP SCH ×3 (06:21→22:15)
[2019-10-02] MEDS ORDERED: Pantoprazole 40 MG Tab.CR PO SCH (07:00)
[2019-10-02] MEDS: Diltiazem 120 MG Cap.CD PO SCH (07:33)
[2019-10-02] MEDS: Beta-Carotene (Vitamin A) w/Vitamin C & E plus Minerals Tab PO SCH (07:34)
[2019-10-02] MEDS: Gabapentin 100 MG Cap PO SCH ×3 (07:34→20:44)
[2019-10-02] MEDS: Apixaban 5 MG Tab PO SCH ×2 (07:34→20:43)
[2019-10-02] MEDS: Allopurinol 100 MG Tab PO SCH (07:35)
[2019-10-02] MEDS: buPROPion 150 MG Tab.ER PO SCH (07:35)
[2019-10-02] MEDS: Ferrous Sulfate 324 MG Tab.EC PO SCH (07:35)
[2019-10-02] MEDS: Budesonide 0.5 MG/2 ML Neb Susp NEB SCH ×2 (07:36→20:43)
[2019-10-02] MEDS: Polyethylene Glycol 3350 Powder 17 GM Packet PO SCH (07:36)
[2019-10-02] MEDS: Furosemide 40 MG/4 ML VIAL IVPUSH SCH (07:36)
[2019-10-02] MEDS: Albuterol/Ipratropium 3.0-0.5 MG/3 ML Neb Soln NEB SCH ×4 (07:36→20:43)
[2019-10-02] MEDS: Insulin NPH HUM/REG Insulin HM 100 UNIT/ML 3 ML Vial SQ SCH ×2 (07:43→17:44)
[2019-10-02] MEDS ORDERED: Allopurinol 100 MG Tab PO SCH (08:00)
[2019-10-02] MEDS ORDERED: INSULN ASP PROT SQ SCH (08:00)
[2019-10-02] MEDS ORDERED: [UNRECOGNIZED DRUG - OTHER] PO SCH (08:00)
[2019-10-02] MEDS ORDERED: Non-Formulary Medication 1 Each (Ferrous Sulfate [Iron] 325 MG) PO SCH (08:00)
[2019-10-02] MEDS ORDERED: Polyethylene Glycol 3350 Powder 17 GM Packet PO SCH (08:00)
[2019-10-02] MEDS ORDERED: Non-Formulary Medication 1 Each (Bupropion Hcl [Wellbutrin Xl] 300 MG) PO SCH (08:00)
[2019-10-02] MEDS ORDERED: amLODIPine 2.5 MG Tab PO SCH (08:00)
[2019-10-02] MEDS ORDERED: Aspirin 81 MG Tab.Chew PO SCH ×2 (08:00)
[2019-10-02] MEDS ORDERED: [UNRECOGNIZED DRUG - OTHER] SQ SCH (08:00)
[2019-10-02] MEDS ORDERED: INSULIN ASPART SQ SCH (08:00)
[2019-10-02] MEDS: Furosemide 80 MG Tab PO SCH (16:11)
[2019-10-02] MEDS: Carvedilol 3.125 MG Tab PO SCH (17:39)
[2019-10-03] MEDS: Pantoprazole 40 MG Tab.CR PO SCH (06:36)
[2019-10-03] MEDS: Nitroglycerin 2% Oint 1 GM UD Packet TOP SCH ×3 (06:36→22:47)
[2019-10-03] MEDS: Apixaban 5 MG Tab PO SCH ×2 (07:56→19:47)
[2019-10-03] MEDS: Diltiazem 120 MG Cap.CD PO SCH (07:57)
[2019-10-03] MEDS: buPROPion 150 MG Tab.ER PO SCH (07:57)
[2019-10-03] MEDS: Furosemide 80 MG Tab PO SCH ×2 (07:57→16:26)
[2019-10-03] MEDS: Ferrous Sulfate 324 MG Tab.EC PO SCH (07:57)
[2019-10-03] MEDS: Beta-Carotene (Vitamin A) w/Vitamin C & E plus Minerals Tab PO SCH (07:58)
[2019-10-03] MEDS: Budesonide 0.5 MG/2 ML Neb Susp NEB SCH ×2 (07:59→19:47)
[2019-10-03] MEDS: Allopurinol 100 MG Tab PO SCH (07:59)
[2019-10-03] MEDS: Carvedilol 3.125 MG Tab PO SCH ×2 (07:59→17:33)
[2019-10-03] MEDS: Gabapentin 100 MG Cap PO SCH ×3 (07:59→19:47)
[2019-10-03] MEDS: Albuterol/Ipratropium 3.0-0.5 MG/3 ML Neb Soln NEB SCH ×4 (07:59→19:47)
[2019-10-03] MEDS: Polyethylene Glycol 3350 Powder 17 GM Packet PO SCH (07:59)
[2019-10-03] MEDS: Insulin NPH HUM/REG Insulin HM 100 UNIT/ML 3 ML Vial SQ SCH ×2 (08:38→17:33)
[2019-10-04] MEDS: Pantoprazole 40 MG Tab.CR PO SCH (06:19)
[2019-10-04] MEDS: Nitroglycerin 2% Oint 1 GM UD Packet TOP SCH ×3 (06:19→22:03)
[2019-10-04] MEDS: Insulin NPH HUM/REG Insulin HM 100 UNIT/ML 3 ML Vial SQ SCH ×2 (07:43→17:18)
[2019-10-04] MEDS: Apixaban 5 MG Tab PO SCH ×2 (07:44→20:20)
[2019-10-04] MEDS: buPROPion 150 MG Tab.ER PO SCH (07:45)
[2019-10-04] MEDS: Diltiazem 120 MG Cap.CD PO SCH (07:45)
[2019-10-04] MEDS: Carvedilol 3.125 MG Tab PO SCH ×2 (07:46→16:57)
[2019-10-04] MEDS: Furosemide 80 MG Tab PO SCH ×2 (07:46→16:57)
[2019-10-04] MEDS: Beta-Carotene (Vitamin A) w/Vitamin C & E plus Minerals Tab PO SCH (07:46)
[2019-10-04] MEDS: Ferrous Sulfate 324 MG Tab.EC PO SCH (07:47)
[2019-10-04] MEDS: Gabapentin 100 MG Cap PO SCH ×3 (07:47→20:21)
[2019-10-04] MEDS: Budesonide 0.5 MG/2 ML Neb Susp NEB SCH ×2 (07:47→20:21)
[2019-10-04] MEDS: Allopurinol 100 MG Tab PO SCH (07:47)
[2019-10-04] MEDS: Albuterol/Ipratropium 3.0-0.5 MG/3 ML Neb Soln NEB SCH ×4 (07:47→20:21)
[2019-10-04] MEDS: Polyethylene Glycol 3350 Powder 17 GM Packet PO SCH (07:48)
[2019-10-05] MEDS: Nitroglycerin 2% Oint 1 GM UD Packet TOP SCH (06:44)
[2019-10-05] MEDS: Pantoprazole 40 MG Tab.CR PO SCH (06:44)
[2019-10-05] MEDS: Apixaban 5 MG Tab PO SCH ×2 (07:41→20:53)
[2019-10-05] MEDS: Albuterol/Ipratropium 3.0-0.5 MG/3 ML Neb Soln NEB SCH ×4 (07:42→20:53)
[2019-10-05] MEDS: Budesonide 0.5 MG/2 ML Neb Susp NEB SCH ×2 (07:42→20:53)
[2019-10-05] MEDS: Furosemide 80 MG Tab PO SCH ×2 (07:43→16:33)
[2019-10-05] MEDS: Diltiazem 120 MG Cap.CD PO SCH (07:43)
[2019-10-05] MEDS: Beta-Carotene (Vitamin A) w/Vitamin C & E plus Minerals Tab PO SCH (07:43)
[2019-10-05] MEDS: Ferrous Sulfate 324 MG Tab.EC PO SCH (07:44)
[2019-10-05] MEDS: Carvedilol 3.125 MG Tab PO SCH ×2 (07:44→17:37)
[2019-10-05] MEDS: buPROPion 150 MG Tab.ER PO SCH (07:44)
[2019-10-05] MEDS: Gabapentin 100 MG Cap PO SCH ×3 (07:45→20:53)
[2019-10-05] MEDS: Allopurinol 100 MG Tab PO SCH (07:45)
[2019-10-05] MEDS: Insulin NPH HUM/REG Insulin HM 100 UNIT/ML 3 ML Vial SQ SCH ×2 (07:45→17:38)
[2019-10-05] MEDS: Polyethylene Glycol 3350 Powder 17 GM Packet PO SCH (07:45)
[2019-10-05] MEDS: Ondansetron 4 MG Tab.DIS PO PRN (08:04)
[2019-10-05] MEDS: Nystatin Crm 30 GM Tube TOP SCH ×3 (08:48→20:54)
--- NOTE | 2019-10-05 08:57 | PCM.PN ---
- General Info Date of Service: 10/05/19 Admission Dx/Problem (Free Text): CHF Functional Status: Reports: Pain Controlled, Ambulating. Denies: Tolerating Diet - Review of Systems General: Reports: Weakness, Fatigue, Malaise HEENT: Reports: Headaches, Rhinitis Pulmonary: Reports: Shortness of Breath, Cough. Denies: Sputum Cardiovascular: Reports: Edema. Denies: Chest Pain, Lightheadedness Gastrointestinal: Reports: Nausea. Denies: Abdominal Pain, Vomiting Genitourinary: Reports: No Symptoms Musculoskeletal: Reports: No Symptoms Skin: Reports: No Symptoms Neurological: Reports: Weakness - Patient Data Vitals - Most Recent: Last Vital Signs Temp 97.0 F 10/05/19 07:46 Pulse 59 L 10/05/19 07:46 Resp 18 10/05/19 07:46 BP 179/84 H 10/05/19 07:46 Pulse Ox 93 L 10/05/19 07:46 Weight - Most Recent: 241 lb 12.8 oz I&O - Last 24 Hours: Intake & Output 10/04/19 10/05/19 10/05/19 22:59 06:59 14:59 Intake Total 300 200 Output Total 600 2000 300 Balance -300 -2000 -100 Lab Results Last 24 Hours: Laboratory Results - last 24 hr 10/04/19 10/04/19 10/04/19 Range/Units 11:35 17:13 20:22 WBC (5.0-10.0) 10^3/uL RBC (4.00-5.50) 10^6/uL Hgb (12.0-16.0) g/dL Hct (37.0-47.0) % MCV (82.0-94.0) fL MCH (27.0-32.0) pg MCHC (33.0-38.0) g/dL RDW Coeff of Taniya (11.0-15.0) % Plt Count (150-400) 10^3/uL Neut % (Auto) (35-85) % Lymph % (Auto) (10-55) % [place] % (Auto) (0-16) % Eos % (Auto) (0-5) % Baso % (Auto) (0-3) % Neut # (Auto) (1.80-7.00) 10^3/uL Lymph # (Auto) (1.00-4.80) 10^3/uL [place] # (Auto) (0.00-0.80) 10^3/uL Eos # (Auto) (0.00-0.45) 10^3/uL Baso # (Auto) 10^3/uL POC Glucose 147 H 123 H 119 H (75-105) mg/dl 10/05/19 10/05/19 Range/Units 07:37 08:15 WBC 8.9 (5.0-10.0) 10^3/uL RBC 3.33 L (4.00-5.50) 10^6/uL Hgb 10.7 L (12.0-16.0) g/dL Hct 32.3 L (37.0-47.0) % MCV 97.0 H (82.0-94.0) fL MCH 32.1 H (27.0-32.0) pg MCHC 33.1 (33.0-38.0) g/dL RDW Coeff of Taniya 13.4 (11.0-15.0) % Plt Count 257 (150-400) 10^3/uL Neut % (Auto) 58.4 (35-85) % Lymph % (Auto) 26.2 (10-55) % [place] % (Auto) 6.6 (0-16) % Eos % (Auto) 8.5 H (0-5) % Baso % (Auto) 0.3 (0-3) % Neut # (Auto) 5.18 (1.80-7.00) 10^3/uL Lymph # (Auto) 2.33 (1.00-4.80) 10^3/uL [place] # (Auto) 0.59 (0.00-0.80) 10^3/uL Eos # (Auto) 0.76 H (0.00-0.45) 10^3/uL Baso # (Auto) 0.03 10^3/uL POC Glucose 105 (75-105) mg/dl Med Orders - Current: Current Medications Acetaminophen (Tylenol) 650 mg PO Q4H PRN PRN Reason: Pain (Mild 1-3)/fever Hydrocodone Bitart/Acetaminophen ([place] 325-5 Mg) 1 tab PO Q6H PRN PRN Reason: Pain Albuterol/Ipratropium (Duoneb 3.0-0.5 Mg/3 Ml) 3 ml NEB QIDRT [facility] Last Admin: 10/05/19 07:42 Dose: 3 ml Documented by: Allopurinol (Zyloprim) 100 mg PO DAILY [facility] Last Admin: 10/05/19 07:45 Dose: 100 mg Documented by: Apixaban (Eliquis) 2.5 mg PO BID [facility] Last Admin: 10/05/19 07:41 Dose: 2.5 mg Documented by: Budesonide (Pulmicort) 0.5 mg NEB BIDRT [facility] Last Admin: 10/05/19 07:42 Dose: 0.5 mg Documented by: Bupropion HCl (Wellbutrin Xl) 300 mg PO DAILY [facility] Last Admin: 10/05/19 07:44 Dose: 300 mg Documented by: Carvedilol (Coreg) 3.125 mg PO BIDMEALS [facility] Last Admin: 10/05/19 07:44 Dose: 3.125 mg Documented by: Diltiazem HCl (Cardizem Cd) 240 mg PO DAILY [facility] Last Admin: 10/05/19 07:43 Dose: 240 mg Documented by: Docusate Sodium (Colace) 100 mg PO BID PRN PRN Reason: Constipation Ferrous Sulfate (Ferrous Sulfate) 324 mg PO DAILY [facility] Last Admin: 10/05/19 07:44 Dose: 324 mg Documented by: Furosemide (Lasix) 80 mg PO BIDDIURETIC [facility] Last Admin: 10/05/19 07:43 Dose: 80 mg Documented by: Gabapentin (Neurontin) 100 mg PO TID [facility] Last Admin: 10/05/19 07:45 Dose: 100 mg Documented by: Guaifenesin/Codeine Phosphate (Robitussin Ac) 10 ml PO Q4H PRN PRN Reason: Cough Insulin NPH Beef/Pork (Humulin 70-30) 8 unit SQ ACDINNER [facility] Last Admin: 10/04/19 17:18 Dose: Not Given Documented by: Insulin NPH Beef/Pork (Humulin 70-30) 16 unit SQ DAILY [facility] Last Admin: 10/05/19 07:45 Dose: Not Given Documented by: Isosorbide Mononitrate (Imdur) 30 mg PO DAILY [facility] Multivitamins/Minerals (Prosight) 1 tab PO DAILY [facility] Last Admin: 10/05/19 07:43 Dose: 1 tab Documented by: Nystatin (Nystatin Crm) 0 gm TOP TID [facility] Last Admin: 10/05/19 08:48 Dose: 1 applic Documented by: Ondansetron HCl (Zofran Odt) 4 mg PO Q6H PRN PRN Reason: Nausea/Vomiting Last Admin: 10/05/19 08:04 Dose: 4 mg Documented by: Pantoprazole Sodium (Protonix) 40 mg PO ACBREAKFAST [facility] Last Admin: 10/05/19 06:44 Dose: 40 mg Documented by: Polyethylene Glycol (Miralax) 17 gm PO DAILY [facility] Last Admin: 10/05/19 07:45 Dose: Not Given Documented by: Temazepam (Restoril) 15 mg PO BEDTIME PRN PRN Reason: Sleep Discontinued Medications Acetaminophen (Tylenol) 650 mg PO Q4H PRN PRN Reason: Pain (Mild 1-3)/fever Albuterol/Ipratropium (Duoneb 3.0-0.5 Mg/3 Ml) 3 ml NEB Q4H PRN PRN Reason: Shortness Of Breath/wheezing Albuterol/Ipratropium (Duoneb 3.0-0.5 Mg/3 Ml) 3 ml NEB QIDRT [facility] Albuterol/Ipratropium (Duoneb 3.0-0.5 Mg/3 Ml) ml INH QID PRN PRN Reason: Shortness of Breath Allopurinol (Zyloprim) 100 mg PO DAILY [facility] Amlodipine Besylate (Norvasc) 5 mg PO DAILY [facility] Aspirin (Aspirin) 81 mg PO DAILY [facility] Aspirin (Aspirin) 81 mg PO DAILY [facility] Budesonide (Pulmicort) 0.5 mg NEB BID [facility] Furosemide (Lasix) 60 mg IVPUSH Q12H [facility] Last Admin: 10/02/19 07:36 Dose: 60 mg Documented by: Gabapentin (Neurontin) 100 mg PO TID [facility] Morphine Sulfate (Morphine) 2 mg IVPUSH Q2H PRN PRN Reason: Pain (severe 7-10) Nitroglycerin (Nitro-Bid 2%) 1 gm TOP Q8H [facility] Nitroglycerin (Nitro-Bid 2%) 0 gm TOP Q8H [facility] Last Admin: 10/05/19 06:44 Dose: 1 gm Documented by: Non-Formulary Medication (Bupropion Hcl [Wellbutrin Xl]) 300 mg PO DAILY [facility] Non-Formulary Medication (Ferrous Sulfate [Iron]) 325 mg PO DAILY [facility] Non-Formulary Medication (Insuln Asp Prot/Insulin Aspart [Novolog Mix 70-30]) 8 units SQ BEDTIME [facility] Non-Formulary Medication (Insuln Asp Prot/Insulin Aspart [Novolog Mix 70-30]) 16 units SQ DAILY [facility] Non-Formulary Medication (Ocutabs) 1 tab PO DAILY [facility] Last Admin: 10/02/19 10:54 Dose: Not Given Documented by: Ondansetron HCl (Zofran) 4 mg IV Q6H PRN PRN Reason: Nausea/Vomiting Pantoprazole Sodium (Protonix) 40 mg PO ACBREAKFAST [facility] Polyethylene Glycol (Miralax) 17 gm PO DAILY [facility] - Exam General: Alert, Oriented HEENT: Mucous Membr. Moist/[place] Neck: Supple Lungs: Decreased Breath Sounds, Crackles, Wheezing Cardiovascular: Irregular Rhythm GI/Abdominal Exam: Normal Bowel Sounds, Soft, Non-Tender Extremities: Normal Inspection, Pedal Edema (1+ pitting edema) Skin: Other (has red, moist skin under her left breast, skin cracked open.) Neurological: No New Focal Deficit Sepsis Event Note - Evaluation Sepsis Screening Result: No Definite Risk - Focused Exam Vital Signs: Vital Signs Temp Pulse Pulse Resp BP BP Pulse Ox 10/05/19 07:46 97.0 F 59 L 18 179/84 H 93 L 10/05/19 07:44 59 L 179/84 H 10/05/19 07:43 59 L 179/84 H 10/04/19 22:15 98.1 F 66 18 135/55 L 92 L Date Exam was Performed: 10/05/19 Time Exam was Performed: 08:51 - Problem List & Annotations (1) Acute exacerbation of CHF (congestive heart failure) SNOMED Code(s): 392406359, 61599768609141 Code(s): I50.9 - HEART FAILURE, UNSPECIFIED Status: Acute Priority: High Current Visit: Yes Qualifiers: Heart failure type: systolic Qualified Code(s): I50.23 - Acute on chronic systolic (congestive) heart failure Annotation/Comment:: Acute on chronic heart failure, stage 3 (2) Chronic kidney disease (CKD) stage G3b/A1, moderately decreased glomerular filtration rate (GFR) between 30-44 mL/min/1.73 square meter and albuminuria creatinine ratio less than 30 mg/g SNOMED Code(s): 322913002, 572939718 Code(s): N18.3 - CHRONIC KIDNEY DISEASE, STAGE 3 (MODERATE) Status: Acute Priority: High Current Visit: Yes (3) Yeast infection of the skin SNOMED Code(s): 89294147 Code(s): B37.2 - CANDIDIASIS OF SKIN AND NAIL Status: Acute Priority: High Current Visit: Yes (4) Diabetes mellitus type 2 SNOMED Code(s): 37208675 Code(s): E11.9 - TYPE 2 DIABETES MELLITUS WITHOUT COMPLICATIONS Status: Chronic Priority: Medium Current Visit: Yes - Problem List Review Problem List Initiated/Reviewed/Updated: Yes - My Orders Last 24 Hours: My Active Orders 10/05/19 08:15 BASIC METABOLIC PANEL,BMP [CHEM] Routine 10/05/19 08:23 Nystatin [Nystatin Crm] See Dose Instructions TOP TID 10/05/19 08:50 Isosorbide Mononitrate [Imdur] 30 mg PO DAILY - Assessment Assessment:: Acute on Chronic Systolic Heart Failure, stage 3 Acute on chronic kidney failure Type 2 DM - Plan Plan:: Patient resting comfortably. Complains of nausea this am, states has been nauseated with the smell of food for months. States "force myself to eat". Was given alternate breakfast this am and ate 100%. Does continue to have occasional cough. Oxygen levels have improved, 93% on room air this am. Does require oxygen with ambulation and at night as sats do drop in to the 80s. Blood pressure high this am, has been off an on over last 3 days. This am 179/84. Norvasc had been stopped due to edema. Coreg was started. Will stop nitropaste and switch to Imdur. Repeat labs today. Continue to ambulate. Possible return back to basic care in the next 1-2 days.
[2019-10-05] MEDS: Isosorbide Mononitrate 30 MG Tab.ER PO SCH (09:25)
[2019-10-06] MEDS: Pantoprazole 40 MG Tab.CR PO SCH (06:29)
[2019-10-06] MEDS: Diltiazem 120 MG Cap.CD PO SCH (07:50)
[2019-10-06] MEDS: buPROPion 150 MG Tab.ER PO SCH (07:50)
[2019-10-06] MEDS: Isosorbide Mononitrate 30 MG Tab.ER PO SCH (07:51)
[2019-10-06] MEDS: Ferrous Sulfate 324 MG Tab.EC PO SCH (07:51)
[2019-10-06] MEDS: Beta-Carotene (Vitamin A) w/Vitamin C & E plus Minerals Tab PO SCH (07:51)
[2019-10-06] MEDS: Apixaban 5 MG Tab PO SCH ×2 (07:52→19:52)
[2019-10-06] MEDS: Furosemide 80 MG Tab PO SCH ×2 (07:52→16:07)
[2019-10-06] MEDS: Carvedilol 3.125 MG Tab PO SCH ×2 (07:53→16:42)
[2019-10-06] MEDS: Gabapentin 100 MG Cap PO SCH ×3 (07:53→19:52)
[2019-10-06] MEDS: Allopurinol 100 MG Tab PO SCH (07:53)
[2019-10-06] MEDS: Budesonide 0.5 MG/2 ML Neb Susp NEB SCH ×2 (07:54→19:53)
[2019-10-06] MEDS: Albuterol/Ipratropium 3.0-0.5 MG/3 ML Neb Soln NEB SCH ×4 (07:54→19:54)
[2019-10-06] MEDS: Insulin NPH HUM/REG Insulin HM 100 UNIT/ML 3 ML Vial SQ SCH ×2 (07:55→16:43)
[2019-10-06] MEDS: Nystatin Crm 30 GM Tube TOP SCH ×3 (07:57→19:59)
[2019-10-06] MEDS: Polyethylene Glycol 3350 Powder 17 GM Packet PO SCH (07:58)
[2019-10-07] MEDS: Pantoprazole 40 MG Tab.CR PO SCH (06:39)
[2019-10-07] MEDS: buPROPion 150 MG Tab.ER PO SCH (07:31)
[2019-10-07] MEDS: Isosorbide Mononitrate 30 MG Tab.ER PO SCH (07:34)
[2019-10-07] MEDS: Beta-Carotene (Vitamin A) w/Vitamin C & E plus Minerals Tab PO SCH (07:34)
[2019-10-07] MEDS: Furosemide 80 MG Tab PO SCH ×2 (07:34→16:02)
[2019-10-07] MEDS: Apixaban 5 MG Tab PO SCH ×2 (07:35→21:02)
[2019-10-07] MEDS: Gabapentin 100 MG Cap PO SCH ×3 (07:35→21:02)
[2019-10-07] MEDS: Allopurinol 100 MG Tab PO SCH (07:36)
[2019-10-07] MEDS: Diltiazem 120 MG Cap.CD PO SCH (07:36)
[2019-10-07] MEDS: Budesonide 0.5 MG/2 ML Neb Susp NEB SCH ×2 (07:36→21:02)
[2019-10-07] MEDS: Ferrous Sulfate 324 MG Tab.EC PO SCH (07:36)
[2019-10-07] MEDS: Carvedilol 3.125 MG Tab PO SCH ×2 (07:36→17:27)
[2019-10-07] MEDS: Albuterol/Ipratropium 3.0-0.5 MG/3 ML Neb Soln NEB SCH ×4 (07:36→21:07)
[2019-10-07] MEDS: Nystatin Crm 30 GM Tube TOP SCH ×3 (07:37→21:03)
[2019-10-07] MEDS: Polyethylene Glycol 3350 Powder 17 GM Packet PO SCH (07:37)
[2019-10-07] MEDS: Insulin NPH HUM/REG Insulin HM 100 UNIT/ML 3 ML Vial SQ SCH ×2 (07:42→17:17)
[2019-10-08] MEDS: Pantoprazole 40 MG Tab.CR PO SCH (06:08)
[2019-10-08] MEDS: Furosemide 20 MG Tab PO SCH ×2 (07:31→16:31)
[2019-10-08] MEDS: Diltiazem 120 MG Cap.CD PO SCH (07:31)
[2019-10-08] MEDS: Ferrous Sulfate 324 MG Tab.EC PO SCH (07:31)
[2019-10-08] MEDS: Gabapentin 100 MG Cap PO SCH ×3 (07:31→19:09)
[2019-10-08] MEDS: Apixaban 5 MG Tab PO SCH ×2 (07:32→19:08)
[2019-10-08] MEDS: buPROPion 150 MG Tab.ER PO SCH (07:32)
[2019-10-08] MEDS: Carvedilol 3.125 MG Tab PO SCH ×2 (07:32→17:48)
[2019-10-08] MEDS: Acetaminophen 325 MG Tab PO PRN ×2 (07:33→11:46)
[2019-10-08] MEDS: Allopurinol 100 MG Tab PO SCH (07:33)
[2019-10-08] MEDS: Isosorbide Mononitrate 30 MG Tab.ER PO SCH (07:33)
[2019-10-08] MEDS: Beta-Carotene (Vitamin A) w/Vitamin C & E plus Minerals Tab PO SCH (07:33)
[2019-10-08] MEDS: Albuterol/Ipratropium 3.0-0.5 MG/3 ML Neb Soln NEB SCH ×4 (07:34→19:09)
[2019-10-08] MEDS: Budesonide 0.5 MG/2 ML Neb Susp NEB SCH ×2 (07:34→19:09)
[2019-10-08] MEDS: Polyethylene Glycol 3350 Powder 17 GM Packet PO SCH (07:34)
[2019-10-08] MEDS: Nystatin Crm 30 GM Tube TOP SCH ×3 (07:36→19:09)
[2019-10-08] MEDS: Insulin NPH HUM/REG Insulin HM 100 UNIT/ML 3 ML Vial SQ SCH ×2 (07:36→17:48)
[2019-10-08] MEDS ORDERED: Isosorbide Mononitrate 30 MG Tab.ER PO ONE (08:38)
[2019-10-08] MEDS: Ondansetron 4 MG Tab.DIS PO PRN (12:22)
[2019-10-09] MEDS: Pantoprazole 40 MG Tab.CR PO SCH (06:04)
[2019-10-09] MEDS: Polyethylene Glycol 3350 Powder 17 GM Packet PO SCH (07:25)
[2019-10-09] MEDS: Budesonide 0.5 MG/2 ML Neb Susp NEB SCH ×2 (07:25→19:14)
[2019-10-09] MEDS: Albuterol/Ipratropium 3.0-0.5 MG/3 ML Neb Soln NEB SCH ×4 (07:25→19:14)
[2019-10-09] MEDS: Gabapentin 100 MG Cap PO SCH ×3 (07:27→19:12)
[2019-10-09] MEDS: Apixaban 5 MG Tab PO SCH ×2 (07:27→19:12)
[2019-10-09] MEDS: Ferrous Sulfate 324 MG Tab.EC PO SCH (07:27)
[2019-10-09] MEDS: Furosemide 20 MG Tab PO SCH ×2 (07:27→16:21)
[2019-10-09] MEDS: Allopurinol 100 MG Tab PO SCH (07:27)
[2019-10-09] MEDS: buPROPion 150 MG Tab.ER PO SCH (07:27)
[2019-10-09] MEDS: Carvedilol 3.125 MG Tab PO SCH ×2 (07:27→17:24)
[2019-10-09] MEDS: Beta-Carotene (Vitamin A) w/Vitamin C & E plus Minerals Tab PO SCH (07:27)
[2019-10-09] MEDS: Diltiazem 120 MG Cap.CD PO SCH (07:28)
[2019-10-09] MEDS: Isosorbide Mononitrate 30 MG Tab.ER PO SCH (07:28)
[2019-10-09] MEDS: Insulin NPH HUM/REG Insulin HM 100 UNIT/ML 3 ML Vial SQ SCH ×2 (07:29→17:30)
[2019-10-09] MEDS: Nystatin Crm 30 GM Tube TOP SCH ×3 (07:32→19:13)
[2019-10-09] MEDS: Docusate Sodium 100 MG Cap PO PRN (11:52)
[2019-10-10] MEDS: Pantoprazole 40 MG Tab.CR PO SCH (06:29)
[2019-10-10] MEDS: Allopurinol 100 MG Tab PO SCH (07:35)
[2019-10-10] MEDS: Budesonide 0.5 MG/2 ML Neb Susp NEB SCH ×2 (07:35→19:06)
[2019-10-10] MEDS: Carvedilol 3.125 MG Tab PO SCH ×2 (07:35→17:26)
[2019-10-10] MEDS: Beta-Carotene (Vitamin A) w/Vitamin C & E plus Minerals Tab PO SCH (07:35)
[2019-10-10] MEDS: Polyethylene Glycol 3350 Powder 17 GM Packet PO SCH (07:35)
[2019-10-10] MEDS: Albuterol/Ipratropium 3.0-0.5 MG/3 ML Neb Soln NEB SCH ×4 (07:35→19:06)
[2019-10-10] MEDS: Furosemide 20 MG Tab PO SCH ×2 (07:36→17:26)
[2019-10-10] MEDS: Gabapentin 100 MG Cap PO SCH ×3 (07:36→19:05)
[2019-10-10] MEDS: Apixaban 5 MG Tab PO SCH ×2 (07:36→19:05)
[2019-10-10] MEDS: Diltiazem 120 MG Cap.CD PO SCH (07:36)
[2019-10-10] MEDS: buPROPion 150 MG Tab.ER PO SCH (07:36)
[2019-10-10] MEDS: Ferrous Sulfate 324 MG Tab.EC PO SCH (07:36)
[2019-10-10] MEDS: Insulin NPH HUM/REG Insulin HM 100 UNIT/ML 3 ML Vial SQ SCH ×2 (07:37→17:31)
[2019-10-10] MEDS: Nystatin Crm 30 GM Tube TOP SCH ×3 (07:37→19:05)
[2019-10-10] MEDS: Isosorbide Mononitrate 30 MG Tab.ER PO SCH (07:37)
[2019-10-10] MEDS ORDERED: Bisacodyl 10 MG Supp RECTAL ONE (21:01)
[2019-10-11] MEDS: Pantoprazole 40 MG Tab.CR PO SCH (06:27)
[2019-10-11] MEDS: Gabapentin 100 MG Cap PO SCH ×3 (08:27→19:48)
[2019-10-11] MEDS: Budesonide 0.5 MG/2 ML Neb Susp NEB SCH ×2 (08:27→19:48)
[2019-10-11] MEDS: Docusate Sodium 100 MG Cap PO PRN (08:27)
[2019-10-11] MEDS: Diltiazem 120 MG Cap.CD PO SCH (08:27)
[2019-10-11] MEDS: Albuterol/Ipratropium 3.0-0.5 MG/3 ML Neb Soln NEB SCH ×4 (08:27→19:48)
[2019-10-11] MEDS: Allopurinol 100 MG Tab PO SCH (08:27)
[2019-10-11] MEDS: Beta-Carotene (Vitamin A) w/Vitamin C & E plus Minerals Tab PO SCH (08:27)
[2019-10-11] MEDS: Furosemide 20 MG Tab PO SCH ×2 (08:27→15:37)
[2019-10-11] MEDS: buPROPion 150 MG Tab.ER PO SCH (08:28)
[2019-10-11] MEDS: Nystatin Crm 30 GM Tube TOP SCH ×3 (08:28→19:49)
[2019-10-11] MEDS: Isosorbide Mononitrate 30 MG Tab.ER PO SCH (08:28)
[2019-10-11] MEDS: Carvedilol 3.125 MG Tab PO SCH ×2 (08:28→17:09)
[2019-10-11] MEDS: Polyethylene Glycol 3350 Powder 17 GM Packet PO SCH (08:28)
[2019-10-11] MEDS: Apixaban 5 MG Tab PO SCH ×2 (08:28→19:48)
[2019-10-11] MEDS: Ferrous Sulfate 324 MG Tab.EC PO SCH (08:28)
[2019-10-11] MEDS: Insulin NPH HUM/REG Insulin HM 100 UNIT/ML 3 ML Vial SQ SCH ×2 (08:29→17:10)
[2019-10-11] MEDS: Ondansetron 4 MG Tab.DIS PO PRN (19:46)
[2019-10-12] MEDS: Pantoprazole 40 MG Tab.CR PO SCH (06:30)
[2019-10-12] MEDS: Budesonide 0.5 MG/2 ML Neb Susp NEB SCH ×2 (07:51→19:19)
[2019-10-12] MEDS: Albuterol/Ipratropium 3.0-0.5 MG/3 ML Neb Soln NEB SCH ×4 (07:51→19:19)
[2019-10-12] MEDS: Polyethylene Glycol 3350 Powder 17 GM Packet PO SCH (07:51)
[2019-10-12] MEDS: Gabapentin 100 MG Cap PO SCH ×3 (07:52→19:24)
[2019-10-12] MEDS: Nystatin Crm 30 GM Tube TOP SCH ×3 (07:52→19:19)
[2019-10-12] MEDS: Furosemide 20 MG Tab PO SCH ×2 (07:52→15:56)
[2019-10-12] MEDS: Beta-Carotene (Vitamin A) w/Vitamin C & E plus Minerals Tab PO SCH (07:52)
[2019-10-12] MEDS: Docusate Sodium 100 MG Cap PO PRN (07:52)
[2019-10-12] MEDS: Isosorbide Mononitrate 30 MG Tab.ER PO SCH (07:52)
[2019-10-12] MEDS: Diltiazem 120 MG Cap.CD PO SCH (07:52)
[2019-10-12] MEDS: Apixaban 5 MG Tab PO SCH ×2 (07:53→19:19)
[2019-10-12] MEDS: buPROPion 150 MG Tab.ER PO SCH (07:53)
[2019-10-12] MEDS: Ferrous Sulfate 324 MG Tab.EC PO SCH (07:53)
[2019-10-12] MEDS: Carvedilol 3.125 MG Tab PO SCH ×2 (07:53→17:18)
[2019-10-12] MEDS: Allopurinol 100 MG Tab PO SCH (07:53)
[2019-10-12] MEDS: Insulin NPH HUM/REG Insulin HM 100 UNIT/ML 3 ML Vial SQ SCH ×2 (07:54→17:20)
[2019-10-13] MEDS: Pantoprazole 40 MG Tab.CR PO SCH (06:43)
[2019-10-13] MEDS: Budesonide 0.5 MG/2 ML Neb Susp NEB SCH ×2 (07:38→19:52)
[2019-10-13] MEDS: Beta-Carotene (Vitamin A) w/Vitamin C & E plus Minerals Tab PO SCH (07:38)
[2019-10-13] MEDS: Polyethylene Glycol 3350 Powder 17 GM Packet PO SCH (07:38)
[2019-10-13] MEDS: Albuterol/Ipratropium 3.0-0.5 MG/3 ML Neb Soln NEB SCH ×4 (07:38→19:52)
[2019-10-13] MEDS: Gabapentin 100 MG Cap PO SCH ×3 (07:39→19:52)
[2019-10-13] MEDS: Diltiazem 120 MG Cap.CD PO SCH (07:39)
[2019-10-13] MEDS: Ferrous Sulfate 324 MG Tab.EC PO SCH (07:39)
[2019-10-13] MEDS: Apixaban 5 MG Tab PO SCH ×2 (07:39→19:52)
[2019-10-13] MEDS: Carvedilol 3.125 MG Tab PO SCH ×2 (07:39→17:39)
[2019-10-13] MEDS: buPROPion 150 MG Tab.ER PO SCH (07:39)
[2019-10-13] MEDS: Furosemide 20 MG Tab PO SCH ×2 (07:39→15:56)
[2019-10-13] MEDS: Isosorbide Mononitrate 30 MG Tab.ER PO SCH (07:39)
[2019-10-13] MEDS: Nystatin Crm 30 GM Tube TOP SCH ×3 (07:42→23:29)
[2019-10-13] MEDS: Allopurinol 100 MG Tab PO SCH (08:16)
[2019-10-13] MEDS: Insulin NPH HUM/REG Insulin HM 100 UNIT/ML 3 ML Vial SQ SCH ×3 (08:16→17:39)
[2019-10-13] MEDS: Nystatin Susp 100,000 Unit/ML 5 ML UD Cup PO SCH ×4 (08:26→19:52)
[2019-10-14] MEDS: Pantoprazole 40 MG Tab.CR PO SCH (06:57)
[2019-10-14] MEDS: Budesonide 0.5 MG/2 ML Neb Susp NEB SCH ×2 (07:44→19:54)
[2019-10-14] MEDS: buPROPion 150 MG Tab.ER PO SCH (07:44)
[2019-10-14] MEDS: Albuterol/Ipratropium 3.0-0.5 MG/3 ML Neb Soln NEB SCH ×4 (07:44→19:54)
[2019-10-14] MEDS: Beta-Carotene (Vitamin A) w/Vitamin C & E plus Minerals Tab PO SCH (07:44)
[2019-10-14] MEDS: Nystatin Susp 100,000 Unit/ML 5 ML UD Cup PO SCH ×4 (07:44→19:54)
[2019-10-14] MEDS: Carvedilol 3.125 MG Tab PO SCH ×2 (07:45→17:36)
[2019-10-14] MEDS: Diltiazem 120 MG Cap.CD PO SCH (07:45)
[2019-10-14] MEDS: Allopurinol 100 MG Tab PO SCH (07:45)
[2019-10-14] MEDS: Furosemide 20 MG Tab PO SCH ×2 (07:45→16:17)
[2019-10-14] MEDS: Gabapentin 100 MG Cap PO SCH ×3 (07:45→19:54)
[2019-10-14] MEDS: Apixaban 5 MG Tab PO SCH ×2 (07:46→19:54)
[2019-10-14] MEDS: Ferrous Sulfate 324 MG Tab.EC PO SCH (07:46)
[2019-10-14] MEDS: Isosorbide Mononitrate 30 MG Tab.ER PO SCH (07:46)
[2019-10-14] MEDS: Nystatin Crm 30 GM Tube TOP SCH (07:47)
[2019-10-14] MEDS: Insulin NPH HUM/REG Insulin HM 100 UNIT/ML 3 ML Vial SQ SCH (07:52)
[2019-10-14] MEDS: Polyethylene Glycol 3350 Powder 17 GM Packet PO SCH (08:20)
[2019-10-14] MEDS ORDERED: Nystatin Crm 30 GM Tube TOP PRN (11:33)
[2019-10-14] MEDS ORDERED: Insulin NPH HUM/REG Insulin HM 100 UNIT/ML 3 ML Vial SQ SCH (17:00)
[2019-10-15] MEDS: Pantoprazole 40 MG Tab.CR PO SCH (06:28)
[2019-10-15] MEDS: Nystatin Susp 100,000 Unit/ML 5 ML UD Cup PO SCH (07:48)
[2019-10-15] MEDS: Furosemide 20 MG Tab PO SCH (07:48)
[2019-10-15] MEDS: Budesonide 0.5 MG/2 ML Neb Susp NEB SCH (07:48)
[2019-10-15] MEDS: Beta-Carotene (Vitamin A) w/Vitamin C & E plus Minerals Tab PO SCH (07:48)
[2019-10-15] MEDS: buPROPion 150 MG Tab.ER PO SCH (07:48)
[2019-10-15] MEDS: Albuterol/Ipratropium 3.0-0.5 MG/3 ML Neb Soln NEB SCH (07:48)
[2019-10-15] MEDS: Allopurinol 100 MG Tab PO SCH (07:48)
[2019-10-15] MEDS: Diltiazem 120 MG Cap.CD PO SCH (07:49)
[2019-10-15] MEDS: Gabapentin 100 MG Cap PO SCH (07:49)
[2019-10-15] MEDS: Isosorbide Mononitrate 30 MG Tab.ER PO SCH (07:49)
[2019-10-15] MEDS: Apixaban 5 MG Tab PO SCH (07:49)
[2019-10-15] MEDS: Carvedilol 3.125 MG Tab PO SCH (07:50)
[2019-10-15] MEDS: Docusate Sodium 100 MG Cap PO PRN (07:50)
[2019-10-15] MEDS: Ferrous Sulfate 324 MG Tab.EC PO SCH (07:50)
[2019-10-15 07:51] VITALS: BP 180/56; PULSE 64
[2019-10-15] MEDS: Polyethylene Glycol 3350 Powder 17 GM Packet PO SCH (07:54)
[2019-10-15] MEDS ORDERED: Insulin NPH HUM/REG Insulin HM 100 UNIT/ML 3 ML Vial SQ SCH (08:00)
--- NOTE | 2019-10-15 09:00 | PCM.DCSUM1 ---
Discharge Summary - Hospital Course Free Text/Narrative:: Lucila is a 74 year old that presented to ER initially for CHF exacerbation. History of chronic renal insufficiency. She presented with increase in peripheral edema and shortness of breath. She was started on IV Lasix, low dose. She was given IV antibiotics in the worry that there may have been associated pneumonia. CRP and WBC were normal so meds for that discontinued. Chest xray did show pleural effusions with cardiomegaly. Patient did have improvement of edema but weight did not decrease much so was switched to 60 mg BID and then did lose 6#. Creatinine has been stable since doing so. Did have ongoing issues with systolic hypertension, she has not tolerated ARB or BRANDIN in the past due to kidney function. She was put on topical nitroglycerin which also helped her blood pressure and CHF. Was switched from Norvasc to Coreg and has tolerated well. During acute stay, patient had pleuritic pain. D-dimer waw done and it was 2. As her creatinine is high, were unable to do CTA of chest to evaluate for PE and due to her history of paroxysmal atrial fib, Eliquis was started. Does have a history of GI bleed in the past, Protonix was started and hemoglobins followed. Labs have been stable. Diagnosis: Stroke: No Modified [place] Scale: No Symptoms at All Modified [place] Scale Score: 0 - Discharge Data Discharge Date: 10/15/19 Discharge Disposition: Home, Self-Care 01 Condition: Good - Referral to Home Health Primary Care Physician: Kelvin Oliveira MD - Discharge Diagnosis/Problem(s) (1) Acute exacerbation of CHF (congestive heart failure) SNOMED Code(s): 368203561, [id number] ICD Code: I50.9 - HEART FAILURE, UNSPECIFIED Status: Acute Priority: High Current Visit: Yes Problem Details: Acute on chronic heart failure, stage 3 Qualifiers: Heart failure type: systolic Qualified Code(s): I50.23 - Acute on chronic systolic (congestive) heart failure (2) Chronic kidney disease (CKD) stage G3b/A1, moderately decreased glomerular filtration rate (GFR) between 30-44 mL/min/1.73 square meter and albuminuria creatinine ratio less than 30 mg/g SNOMED Code(s): 373376157, 067416754 ICD Code: N18.3 - CHRONIC KIDNEY DISEASE, STAGE 3 (MODERATE) Status: Acute Priority: High Current Visit: Yes (3) Yeast infection of the skin SNOMED Code(s): 14198304 ICD Code: B37.2 - CANDIDIASIS OF SKIN AND NAIL Status: Acute Priority: High Current Visit: Yes (4) Diabetes mellitus type 2 SNOMED Code(s): 48972166 ICD Code: E11.9 - TYPE 2 DIABETES MELLITUS WITHOUT COMPLICATIONS Status: Chronic Priority: Medium Current Visit: Yes - Patient Summary/Data Complications: none Consults: Consultations 10/01/19 15:42 PT Evaluation and Treatment [CONS] Routine Hospital Course: Patient is doing well. She is ambulating now in the halls with walker, tolerating well. Has been weaned off oxygen and sats greater than 90% even with ambulation. Zofran has been given at times due to nausea. Patient reports she has ongoing concerns with that at the care home and relates to diet. States unable to eat no sodium diet, will switch to low sodium. She is aware this may affect her CHF. Blood pressures continue to run high at times, ImDur was increased now to 60 mg daily. She initially had headaches from that but that has now improved. Labs have remained stable, creatinine 1.6. Will continue with current Lasix dose at 60 mg BID. Continue Eliquis and Protonix. Patient is down 7# from admission to acute. Lung sounds are clear. Does have 2+ edema, pitting in nature. Is providing care for self now. - Patient Instructions Diet: Low Sodium, Diabetic Diet Activity: As Tolerated - Discharge Plan *PRESCRIPTION DRUG MONITORING PROGRAM REVIEWED*: Yes *COPY OF PRESCRIPTION DRUG MONITORING REPORT IN PATIENT CORNELIO: Yes Prescriptions/Med Rec: carvediloL [Coreg] 3.125 mg PO BIDMEALS #60 tablet Apixaban [Eliquis] 2.5 mg PO BID #60 tablet Isosorbide Mononitrate [Imdur] 60 mg PO DAILY 30 Days #30 tab.er Furosemide [Lasix] 60 mg PO BIDDIURETIC #60 tablet Nystatin [Mycostatin] 5 ml PO QID #80 cup Nystatin [Nystatin Crm] 30 gm TOP TID PRN #1 tube PRN Reason: Wound Care Pantoprazole Sodium [Protonix] 40 mg PO DAILY #30 tablet. Ondansetron [Zofran ODT] 4 mg PO Q6H PRN #60 tab.dis PRN Reason: Nausea/Vomiting Home Medications: Home Meds Pantoprazole [ProTONIX] 40 mg PO DAILY 45 Days tab.cr 11/26/13 [Rx] Aspirin 81 mg PO DAILY 11/05/16 [History] Allopurinol [Zyloprim] 100 mg PO DAILY 04/21/17 [History] Gabapentin [Neurontin] 100 mg PO TID 05/14/17 [History] buPROPion HCL [Wellbutrin Xl] 300 mg PO DAILY 05/14/17 [History] dilTIAZem HCL [Cartia Xt] 240 mg PO DAILY 04/21/19 [History] Albuterol/Ipratropium [DuoNeb 3.0-0.5 MG/3 ML] 3 ml NEB QID 06/13/19 [History] Ferrous Sulfate [Iron] 325 mg PO DAILY 06/13/19 [History] Ocutabs 1 tab PO DAILY 06/13/19 [History] Acetaminophen [Tylenol] 650 mg PO Q4H PRN tablet 07/07/19 [Rx] Budesonide [Pulmicort] 0.5 mg NEB BID 09/25/19 [History] Codeine Phosphate/Guaifenesin [Guaifenesin AC Cough Syrup] 2 tsp PO Q4H PRN 09/25/19 [History] Insuln Asp Prot/Insulin Aspart [NovoLOG Mix 70-30] 8 units SQ BEDTIME 09/25/19 [History] Insuln Asp Prot/Insulin Aspart [NovoLOG Mix 70-30] 16 units SQ DAILY 09/25/19 [History] Ipratropium/Albuterol Sulfate [Iprat-Albut 0.5-3(2.5) mg/3 ml] 1 inh INH QID PRN 09/25/19 [History] polyethylene glycoL 3350 [MiraLAX] 17 gm PO DAILY 09/25/19 [History] Apixaban [Eliquis] 2.5 mg PO BID #60 tablet 10/15/19 [Rx] Furosemide [Lasix] 60 mg PO BIDDIURETIC #60 tablet 10/15/19 [Rx] Isosorbide Mononitrate [Imdur] 60 mg PO DAILY 30 Days #30 tab.er 10/15/19 [Rx] Nystatin [Mycostatin] 5 ml PO QID #80 cup 10/15/19 [Rx] Nystatin [Nystatin Crm] 30 gm TOP TID PRN #1 tube 10/15/19 [Rx] Ondansetron [Zofran ODT] 4 mg PO Q6H PRN #60 tab.dis 10/15/19 [Rx] Pantoprazole Sodium [Protonix] 40 mg PO DAILY #30 tablet. 10/15/19 [Rx] carvediloL [Coreg] 3.125 mg PO BIDMEALS #60 tablet 10/15/19 [Rx] - Discharge Summary/Plan Comment DC Time >30 min.: Yes - General Info Date of Service: 10/15/19 Admission Dx/Problem (Free Text: CHF Functional Status: Reports: Pain Controlled, Tolerating Diet, Ambulating - Review of Systems General: Denies: Fever, Weakness, Malaise HEENT: Reports: No Symptoms Pulmonary: Reports: Shortness of Breath, Cough Cardiovascular: Reports: Edema, Lightheadedness. Denies: Chest Pain Gastrointestinal: Denies: Abdominal Pain, Nausea, Vomiting Genitourinary: Reports: No Symptoms Musculoskeletal: Reports: No Symptoms Skin: Reports: No Symptoms Neurological: Reports: No Symptoms - Patient Data Vitals - Most Recent: Last Vital Signs Temp 97.1 F 10/15/19 08:00 Pulse 64 10/15/19 08:00 Resp 20 10/15/19 08:00 BP 180/56 H 10/15/19 08:00 Pulse Ox 98 10/15/19 08:00 Weight - Most Recent: 237 lb 11.2 oz Lab Results - Last 24 hrs: Laboratory Results - last 24 hr 10/14/19 10/14/19 10/14/19 Range/Units 11:36 17:38 19:50 POC Glucose 107 H 145 H 163 H (75-105) mg/dl 10/15/19 Range/Units 07:32 POC Glucose 91 (75-105) mg/dl Med Orders - Current: Current Medications Acetaminophen (Tylenol) 650 mg PO Q4H PRN PRN Reason: Pain (Mild 1-3)/fever Last Admin: 10/08/19 11:46 Dose: 650 mg Documented by: Hydrocodone Bitart/Acetaminophen ([place] 325-5 Mg) 1 tab PO Q6H PRN PRN Reason: Pain Albuterol/Ipratropium (Duoneb 3.0-0.5 Mg/3 Ml) 3 ml NEB QIDRT [facility] Last Admin: 10/15/19 07:48 Dose: 3 ml Documented by: Allopurinol (Zyloprim) 100 mg PO DAILY [facility] Last Admin: 10/15/19 07:48 Dose: 100 mg Documented by: Apixaban (Eliquis) 2.5 mg PO BID [facility] Last Admin: 10/15/19 07:49 Dose: 2.5 mg Documented by: Budesonide (Pulmicort) 0.5 mg NEB BIDRT [facility] Last Admin: 10/15/19 07:48 Dose: 0.5 mg Documented by: Bupropion HCl (Wellbutrin Xl) 300 mg PO DAILY [facility] Last Admin: 10/15/19 07:48 Dose: 300 mg Documented by: Carvedilol (Coreg) 3.125 mg PO BIDMEALS [facility] Last Admin: 10/15/19 07:50 Dose: 3.125 mg Documented by: Diltiazem HCl (Cardizem Cd) 240 mg PO DAILY [facility] Last Admin: 10/15/19 07:49 Dose: 240 mg Documented by: Docusate Sodium (Colace) 100 mg PO BID PRN PRN Reason: Constipation Last Admin: 10/15/19 07:50 Dose: 100 mg Documented by: Ferrous Sulfate (Ferrous Sulfate) 324 mg PO DAILY [facility] Last Admin: 10/15/19 07:50 Dose: 324 mg Documented by: Furosemide (Lasix) 60 mg PO BIDDIURETIC [facility] Last Admin: 10/15/19 07:48 Dose: 60 mg Documented by: Gabapentin (Neurontin) 100 mg PO TID [facility] Last Admin: 10/15/19 07:49 Dose: 100 mg Documented by: Guaifenesin/Codeine Phosphate (Robitussin Ac) 10 ml PO Q4H PRN PRN Reason: Cough Insulin NPH Beef/Pork (Humulin 70-30) 8 unit SQ ACDINNER [facility] Last Admin: 10/14/19 17:39 Dose: 8 unit Documented by: Insulin NPH Beef/Pork (Humulin 70-30) 16 unit SQ DAILY [facility] Last Admin: 10/15/19 07:56 Dose: 16 unit Documented by: Isosorbide Mononitrate (Imdur) 60 mg PO DAILY [facility] Last Admin: 10/15/19 07:49 Dose: 60 mg Documented by: Multivitamins/Minerals (Prosight) 1 tab PO DAILY [facility] Last Admin: 10/15/19 07:48 Dose: 1 tab Documented by: Nystatin (Mycostatin) 5 ml PO QID [facility] Last Admin: 10/15/19 07:48 Dose: 5 ml Documented by: Nystatin (Nystatin Crm) 0 gm TOP TID PRN PRN Reason: Wound Care Ondansetron HCl (Zofran Odt) 4 mg PO Q6H PRN PRN Reason: Nausea/Vomiting Last Admin: 10/11/19 19:46 Dose: 4 mg Documented by: Pantoprazole Sodium (Protonix) 40 mg PO ACBREAKFAST [facility] Last Admin: 10/15/19 06:28 Dose: 40 mg Documented by: Polyethylene Glycol (Miralax) 17 gm PO DAILY [facility] Last Admin: 10/15/19 07:54 Dose: Not Given Documented by: Temazepam (Restoril) 15 mg PO BEDTIME PRN PRN Reason: Sleep Discontinued Medications Acetaminophen (Tylenol) 650 mg PO Q4H PRN PRN Reason: Pain (Mild 1-3)/fever Albuterol/Ipratropium (Duoneb 3.0-0.5 Mg/3 Ml) 3 ml NEB Q4H PRN PRN Reason: Shortness Of Breath/wheezing Albuterol/Ipratropium (Duoneb 3.0-0.5 Mg/3 Ml) 3 ml NEB QIDRT [facility] Albuterol/Ipratropium (Duoneb 3.0-0.5 Mg/3 Ml) ml INH QID PRN PRN Reason: Shortness of Breath Allopurinol (Zyloprim) 100 mg PO DAILY [facility] Amlodipine Besylate (Norvasc) 5 mg PO DAILY [facility] Aspirin (Aspirin) 81 mg PO DAILY [facility] Aspirin (Aspirin) 81 mg PO DAILY [facility] Bisacodyl (Dulcolax) 10 mg RECTAL ONETIME ONE Stop: 10/10/19 21:02 Last Admin: 10/10/19 21:52 Dose: 10 mg Documented by: Budesonide (Pulmicort) 0.5 mg NEB BID [facility] Furosemide (Lasix) 60 mg IVPUSH Q12H [facility] Last Admin: 10/02/19 07:36 Dose: 60 mg Documented by: Furosemide (Lasix) 80 mg PO BIDDIURETIC [facility] Last Admin: 10/07/19 16:02 Dose: 80 mg Documented by: Gabapentin (Neurontin) 100 mg PO TID [facility] Insulin NPH Beef/Pork (Humulin 70-30) 8 unit SQ ACDINNER [facility] Last Admin: 10/13/19 17:39 Dose: 8 unit Documented by: Insulin NPH Beef/Pork (Humulin 70-30) 16 unit SQ DAILY [facility] Last Admin: 10/14/19 07:52 Dose: 16 unit Documented by: Isosorbide Mononitrate (Imdur) 30 mg PO DAILY [facility] Last Admin: 10/08/19 07:33 Dose: 30 mg Documented by: Isosorbide Mononitrate (Imdur) 30 mg PO ONETIME ONE Stop: 10/08/19 08:39 Last Admin: 10/08/19 09:00 Dose: 30 mg Documented by: Morphine Sulfate (Morphine) 2 mg IVPUSH Q2H PRN PRN Reason: Pain (severe 7-10) Nitroglycerin (Nitro-Bid 2%) 1 gm TOP Q8H [facility] Nitroglycerin (Nitro-Bid 2%) 0 gm TOP Q8H [facility] Last Admin: 10/05/19 06:44 Dose: 1 gm Documented by: Non-Formulary Medication (Bupropion Hcl [Wellbutrin Xl]) 300 mg PO DAILY [facility] Non-Formulary Medication (Ferrous Sulfate [Iron]) 325 mg PO DAILY [facility] Non-Formulary Medication (Insuln Asp Prot/Insulin Aspart [Novolog Mix 70-30]) 8 units SQ BEDTIME [facility] Non-Formulary Medication (Insuln Asp Prot/Insulin Aspart [Novolog Mix 70-30]) 16 units SQ DAILY [facility] Non-Formulary Medication (Ocutabs) 1 tab PO DAILY [facility] Last Admin: 10/02/19 10:54 Dose: Not Given Documented by: Nystatin (Nystatin Crm) 0 gm TOP TID [facility] Last Admin: 10/14/19 07:47 Dose: Not Given Documented by: Ondansetron HCl (Zofran) 4 mg IV Q6H PRN PRN Reason: Nausea/Vomiting Pantoprazole Sodium (Protonix) 40 mg PO ACBREAKFAST [facility] Polyethylene Glycol (Miralax) 17 gm PO DAILY [facility] - Exam General: Reports: Alert, Oriented HEENT: Reports: Mucous Membr. Moist/[place] Neck: Reports: Supple Lungs: Reports: Clear to Auscultation, Normal Respiratory Effort Cardiovascular: Reports: Regular Rate, Regular Rhythm GI/Abdominal Exam: Normal Bowel Sounds, Soft, Non-Tender Extremities: Pedal Edema (2+) Skin: Reports: Warm, Dry Neurological: Reports: No New Focal Deficit
== END 2019-10-15 09:50 | disposition home or self-care (01) | DRG 291 ==
LOC: CC.MS 13:01 → UNDOADMIN 13:01 → CC.MS 15:37
PROVIDERS: ADMIT Family Medicine; ATTEND Family Medicine
DX: I13.0 Hypertensive heart and chronic kidney disease with heart failure and stage 1 through stage 4 chronic kidney disease, or unspecified chronic kidney disease (principal); I50.23 Acute on chronic systolic (congestive) heart failure; N18.3 Chronic kidney disease, stage 3 (moderate); B37.2 Candidiasis of skin and nail; E11.22 Type 2 diabetes mellitus with diabetic chronic kidney disease; I48.0 Paroxysmal atrial fibrillation; Z20.828 Contact with and (suspected) exposure to other viral communicable diseases; Z79.82 Long term (current) use of aspirin; Z79.899 Other long term (current) drug therapy; Z79.4 Long term (current) use of insulin
CPT/HCPCS: 36415; 80048; 82962; 85025; 94640; 97110-GP; A9270-GY; J1815-GY; J1940; J7620-GY; U0002

== ENCOUNTER 2020-08-18 08:46 | Inpatient (IN) | payer MEDICARE, OTHER, MEDICAID ==
[2020-08-18 09:39] LABS: CHLORIDE,CL 105 mEq/L (98-106); SODIUM,NA 142 mEq/L (136-145)
[2020-08-18] MEDS ORDERED: Sodium Chloride 0.9% 10 ML Syringe FLUSH PRN (13:43)
[2020-08-18] MEDS ORDERED: Acetaminophen 325 MG Tab PO PRN (13:43)
[2020-08-18] MEDS: Gabapentin 100 MG Cap PO SCH ×2 (15:47→19:46)
[2020-08-18] MEDS: Furosemide 40 MG/4 ML VIAL IVPUSH SCH (15:47)
[2020-08-18] MEDS: Albuterol/Ipratropium 3.0-0.5 MG/3 ML Neb Soln INH SCH ×2 (15:47→19:49)
[2020-08-18] MEDS: Carvedilol 12.5 MG Tab PO SCH (17:31)
[2020-08-18] MEDS: cloNIDine 0.1 MG Tab PO SCH (19:46)
[2020-08-18] MEDS: ALPRAZolam 0.25 MG Tab PO SCH (19:46)
[2020-08-18] MEDS: Apixaban 5 MG Tab PO SCH (19:48)
[2020-08-18] MEDS ORDERED: Insulin NPH HUM/REG Insulin HM 100 UNIT/ML 3 ML Vial SQ SCH (20:00)
[2020-08-19] MEDS: Pantoprazole 40 MG Tab.CR PO SCH (06:01)
[2020-08-19] MEDS: Polyethylene Glycol 3350 Powder 17 GM Packet PO SCH (07:49)
[2020-08-19] MEDS: Albuterol/Ipratropium 3.0-0.5 MG/3 ML Neb Soln INH SCH ×4 (07:49→20:05)
[2020-08-19] MEDS: buPROPion 150 MG Tab.ER PO SCH (07:49)
[2020-08-19] MEDS: Furosemide 40 MG/4 ML VIAL IVPUSH SCH ×2 (07:49→19:58)
[2020-08-19] MEDS: Isosorbide Mononitrate 30 MG Tab.ER PO SCH (07:50)
[2020-08-19] MEDS: Allopurinol 100 MG Tab PO SCH (07:50)
[2020-08-19] MEDS: Diltiazem 120 MG Cap.CD PO SCH (07:50)
[2020-08-19] MEDS: cloNIDine 0.1 MG Tab PO SCH ×2 (07:51→20:04)
[2020-08-19] MEDS: Ferrous Sulfate 324 MG Tab.EC PO SCH (07:51)
[2020-08-19] MEDS: Carvedilol 12.5 MG Tab PO SCH ×2 (07:52→17:17)
[2020-08-19] MEDS: Gabapentin 100 MG Cap PO SCH ×3 (07:52→20:04)
[2020-08-19] MEDS: Apixaban 5 MG Tab PO SCH ×2 (07:52→20:05)
[2020-08-19] MEDS: Insulin NPH HUM/REG Insulin HM 100 UNIT/ML 3 ML Vial SQ SCH ×2 (08:00→17:16)
[2020-08-19] MEDS: cefTRIAXone 1 GM Vial IVPUSH SCH (13:57)
[2020-08-19] MEDS: ALPRAZolam 0.25 MG Tab PO SCH (20:03)
[2020-08-20] MEDS: Pantoprazole 40 MG Tab.CR PO SCH (06:04)
--- NOTE | 2020-08-20 07:12 | PCM.PN ---
- General Info Date of Service: 08/19/20 Admission Dx/Problem (Free Text): CHF exacerbation CKD Generalized weakness Subjective Update: Lucila is a 75 yo female who was admitted to the hospital 08/18/2020 with CHF exacerbation. Patient has been having increased shortness of breath the last few weeks and has progressively gotten worse recently. 08/19/2020 Patient states she feels about the same today as on admit. States she needs to sit upright or does find herself getting short of breath. States when she gets up to the bathroom (which is only a few feet away) she is winded by the time she gets back to sit down. She denies any fevers. Does complain of mild dysuria. Has history of UTI's. Functional Status: Reports: Tolerating Diet, Urinating. Denies: New Symptoms - Review of Systems General: Reports: Weakness, Fatigue. Denies: Fever, Appetite HEENT: Reports: No Symptoms Pulmonary: Reports: Shortness of Breath, Cough. Denies: Sputum Cardiovascular: Reports: Dyspnea on Exertion. Denies: Chest Pain, Palpitations Gastrointestinal: Reports: Decreased Appetite. Denies: Abdominal Pain, Melena, Nausea, Vomiting Genitourinary: Reports: Burning. Denies: Frequency, Pain Musculoskeletal: Reports: No Symptoms Skin: Reports: No Symptoms Neurological: Reports: No Symptoms - Patient Data Vitals - Most Recent: Last Vital Signs Temp 97.7 F 08/20/20 04:00 Pulse 53 L 08/20/20 04:00 Resp 16 08/20/20 04:00 BP 148/53 H 08/20/20 04:00 Pulse Ox 93 L 08/20/20 04:00 Weight - Most Recent: 237 lb I&O - Last 24 Hours: Intake & Output 08/19/20 08/20/20 08/20/20 22:59 06:59 14:59 Intake Total 840 200 Output Total 1000 300 Balance -160 -100 Lab Results Last 24 Hours: Laboratory Results - last 24 hr 08/19/20 08/19/20 08/19/20 Range/Units 07:58 13:15 17:15 Sodium 141 (136-145) mEq/L Potassium 4.3 (3.5-5.0) mEq/L Chloride 104 (98-106) mEq/L Carbon Dioxide 28 (21-32) mmol/L BUN 62 H (7-18) mg/dL Creatinine 2.6 H* (0.6-1.0) mg/dL Est Cr Clr Drug Dosing 18.46 mL/min Estimated GFR (MDRD) 18 L (>=60) mL/min Glucose 181 H D (75-99) mg/dL POC Glucose 172 H 114 H (75-105) mg/dL Calcium 8.0 L (8.4-10.1) mg/dL Med Orders - Current: Current Medications Acetaminophen (Acetaminophen 325 Mg Tab) 650 mg PO Q4H PRN PRN Reason: Pain (Mild 1-3)/fever Albuterol/Ipratropium (Albuterol/Ipratropium 3.0-0.5 Mg/3 Ml Neb Soln) 3 ml INH QID [facility] Last Admin: 08/19/20 20:05 Dose: 3 ml Documented by: Allopurinol (Allopurinol 100 Mg Tab) 100 mg PO DAILY [facility] Last Admin: 08/19/20 07:50 Dose: 100 mg Documented by: Alprazolam (Alprazolam 0.25 Mg Tab) 0.5 mg PO BEDTIME [facility] Last Admin: 08/19/20 20:03 Dose: 0.5 mg Documented by: Apixaban (Apixaban 5 Mg Tab) 2.5 mg PO BID [facility] Last Admin: 08/19/20 20:05 Dose: 2.5 mg Documented by: Bupropion HCl (Bupropion 150 Mg Tab.Er) 300 mg PO DAILY [facility] Last Admin: 08/19/20 07:49 Dose: 300 mg Documented by: Carvedilol (Carvedilol 12.5 Mg Tab) 12.5 mg PO BIDMEALS [facility] Last Admin: 08/19/20 17:17 Dose: 12.5 mg Documented by: Ceftriaxone Sodium (Ceftriaxone 1 Gm Vial) 1 gm IVPUSH Q24H [facility] Last Admin: 08/19/20 13:57 Dose: 1 gm Documented by: Clonidine HCl (Clonidine 0.1 Mg Tab) 0.2 mg PO BID [facility] Last Admin: 08/19/20 20:04 Dose: 0.2 mg Documented by: Diltiazem HCl (Diltiazem 120 Mg Cap.Cd) 240 mg PO DAILY [facility] Last Admin: 08/19/20 07:50 Dose: 240 mg Documented by: Ferrous Sulfate (Ferrous Sulfate 324 Mg Tab.Ec) 324 mg PO DAILY [facility] Last Admin: 08/19/20 07:51 Dose: 324 mg Documented by: Furosemide (Furosemide 40 Mg/4 Ml Vial) 40 mg IVPUSH BID [facility] Last Admin: 08/19/20 19:58 Dose: 40 mg Documented by: Gabapentin (Gabapentin 100 Mg Cap) 100 mg PO TID [facility] Last Admin: 08/19/20 20:04 Dose: 100 mg Documented by: Insulin NPH Beef/Pork (Insulin Nph Hum/Reg Insulin Hm 100 Unit/Ml 3 Ml Vial) 16 unit SQ DAILY [facility] Last Admin: 08/19/20 08:00 Dose: 16 unit Documented by: Insulin NPH Beef/Pork (Insulin Nph Hum/Reg Insulin Hm 100 Unit/Ml 3 Ml Vial) 8 unit SQ ACDINNER [facility] Last Admin: 08/19/20 17:16 Dose: 8 unit Documented by: Isosorbide Mononitrate (Isosorbide Mononitrate 30 Mg Tab.Er) 90 mg PO DAILY [facility] Last Admin: 08/19/20 07:50 Dose: 90 mg Documented by: Pantoprazole Sodium (Pantoprazole 40 Mg Tab.Cr) 40 mg PO ACBREAKFAST [facility] Last Admin: 08/20/20 06:04 Dose: 40 mg Documented by: Polyethylene Glycol (Polyethylene Glycol 3350 Powder 17 Gm Packet) 17 gm PO DAILY [facility] Last Admin: 08/19/20 07:49 Dose: Not Given Documented by: Sodium Chloride (Sodium Chloride 0.9% 10 Ml Syringe) 10 ml FLUSH ASDIRECTED PRN PRN Reason: Keep Vein Open - Exam General: Alert, Oriented Lungs: Normal Respiratory Effort, Decreased Breath Sounds, Crackles (bilateral bases). No: Wheezing Cardiovascular: Regular Rate, Irregular Rhythm GI/Abdominal Exam: Normal Bowel Sounds, Soft, Non-Tender Extremities: Pedal Edema (2+ bilaterally) Skin: Warm, Dry, Intact Neurological: No New Focal Deficit Psy/Mental Status: Alert, Normal Affect, Normal Mood - Patient Data Lab Results Last 24 hrs: Laboratory Results - last 24 hr 08/19/20 08/19/20 08/19/20 Range/Units 07:58 13:15 17:15 Sodium 141 (136-145) mEq/L Potassium 4.3 (3.5-5.0) mEq/L Chloride 104 (98-106) mEq/L Carbon Dioxide 28 (21-32) mmol/L BUN 62 H (7-18) mg/dL Creatinine 2.6 H* (0.6-1.0) mg/dL Est Cr Clr Drug Dosing 18.46 mL/min Estimated GFR (MDRD) 18 L (>=60) mL/min Glucose 181 H D (75-99) mg/dL POC Glucose 172 H 114 H (75-105) mg/dL Calcium 8.0 L (8.4-10.1) mg/dL Result Diagrams: 08/18/20 09:09 08/19/20 13:15 Sepsis Event Note - Evaluation Sepsis Screening Result: No Definite Risk - Focused Exam Vital Signs: Vital Signs Temp Pulse Resp BP BP BP Pulse Ox 08/20/20 04:00 97.7 F 53 L 16 148/53 H 93 L 08/20/20 00:00 97.2 F 59 L 16 154/64 H 94 L 08/19/20 20:04 173/78 H 08/19/20 20:00 97.1 F 59 L 16 173/78 H 95 - Problem List & Annotations (1) Generalized weakness SNOMED Code(s): 59492503 Code(s): R53.1 - WEAKNESS Status: Acute Current Visit: Yes (2) Acute exacerbation of CHF (congestive heart failure) SNOMED Code(s): 101194375, 71211433956325 Code(s): I50.9 - HEART FAILURE, UNSPECIFIED Status: Acute Priority: High Current Visit: No Qualifiers: Heart failure type: systolic Qualified Code(s): I50.23 - Acute on chronic systolic (congestive) heart failure Annotation/Comment:: Acute on chronic heart failure, stage 3 (3) Chronic kidney disease (CKD) stage G3b/A1, moderately decreased glomerular filtration rate (GFR) between 30-44 mL/min/1.73 square meter and albuminuria cr eatinine ratio less than 30 mg/g SNOMED Code(s): 895755501, 817465423, 658866148, 029143358 Code(s): N18.3 - CHRONIC KIDNEY DISEASE, STAGE 3 (MODERATE) * DO NOT USE * Status: Acute Priority: High Current Visit: No (4) Shortness of breath SNOMED Code(s): 143939540 Code(s): R06.02 - SHORTNESS OF BREATH Status: Acute Priority: High Current Visit: No - Problem List Review Problem List Initiated/Reviewed/Updated: Yes - My Orders Last 24 Hours: My Active Orders 08/19/20 13:00 cefTRIAXone [Rocephin] 1 gm IVPUSH Q24H 08/20/20 05:11 BASIC METABOLIC PANEL,BMP [CHEM] AM 08/21/20 05:11 BASIC METABOLIC PANEL,BMP [CHEM] AM - Plan Plan:: 08/19/2020 Reviewed patient's laboratory work this morning. Patient does have symptoms of UTI with trace of leukocytes, 40-50 WBC's and moderate amount of bacteria via UA. Will start IV Rocephin. Will continue with IV Lasix. Discussed patient's condition with Fabian Villanueva, on- call provider.
[2020-08-20] MEDS: Polyethylene Glycol 3350 Powder 17 GM Packet PO SCH (07:42)
[2020-08-20] MEDS: cloNIDine 0.1 MG Tab PO SCH ×2 (07:42→20:01)
[2020-08-20] MEDS: Apixaban 5 MG Tab PO SCH ×2 (07:43→20:01)
[2020-08-20] MEDS: Carvedilol 12.5 MG Tab PO SCH ×2 (07:44→17:12)
[2020-08-20] MEDS: buPROPion 150 MG Tab.ER PO SCH (07:44)
[2020-08-20] MEDS: Albuterol/Ipratropium 3.0-0.5 MG/3 ML Neb Soln INH SCH ×4 (07:44→20:02)
[2020-08-20] MEDS: Diltiazem 120 MG Cap.CD PO SCH (07:44)
[2020-08-20] MEDS: Isosorbide Mononitrate 30 MG Tab.ER PO SCH (07:45)
[2020-08-20] MEDS: Ferrous Sulfate 324 MG Tab.EC PO SCH (07:45)
[2020-08-20] MEDS: Gabapentin 100 MG Cap PO SCH ×3 (07:46→20:01)
[2020-08-20] MEDS: Furosemide 40 MG/4 ML VIAL IVPUSH SCH ×2 (07:46→10:55)
[2020-08-20] MEDS: Allopurinol 100 MG Tab PO SCH (07:46)
[2020-08-20] MEDS: Insulin NPH HUM/REG Insulin HM 100 UNIT/ML 3 ML Vial SQ SCH ×2 (08:30→17:12)
--- NOTE | 2020-08-20 10:16 | PCM.PN ---
- General Info Date of Service: 08/20/20 Functional Status: Reports: Pain Controlled, Tolerating Diet, Ambulating (with walker), Urinating. Denies: New Symptoms - Review of Systems General: Reports: Weakness, Fatigue HEENT: Reports: No Symptoms Pulmonary: Reports: Shortness of Breath Cardiovascular: Reports: Dyspnea on Exertion, Edema Gastrointestinal: Reports: No Symptoms Genitourinary: Reports: No Symptoms Musculoskeletal: Reports: No Symptoms Skin: Reports: No Symptoms Neurological: Reports: No Symptoms Psychiatric: Reports: No Symptoms - Patient Data Vitals - Most Recent: Last Vital Signs Temp 97.6 F 08/20/20 08:00 Pulse 68 08/20/20 08:00 Resp 18 08/20/20 08:00 BP 167/63 H 08/20/20 08:00 Pulse Ox 95 08/20/20 08:00 Weight - Most Recent: 237 lb I&O - Last 24 Hours: Intake & Output 08/19/20 08/20/20 08/20/20 22:59 06:59 14:59 Intake Total 840 200 Output Total 1000 300 Balance -160 -100 Lab Results Last 24 Hours: Laboratory Results - last 24 hr 08/19/20 08/19/20 08/20/20 Range/Units 13:15 17:15 05:11 Sodium 141 142 (136-145) mEq/L Potassium 4.3 4.3 (3.5-5.0) mEq/L Chloride 104 105 (98-106) mEq/L Carbon Dioxide 28 26 (21-32) mmol/L BUN 62 H 62 H (7-18) mg/dL Creatinine 2.6 H* 2.4 H (0.6-1.0) mg/dL Est Cr Clr Drug Dosing 18.46 20.00 mL/min Estimated GFR (MDRD) 18 L 20 L (>=60) mL/min Glucose 181 H D 97 D (75-99) mg/dL POC Glucose 114 H (75-105) mg/dL Calcium 8.0 L 8.0 L (8.4-10.1) mg/dL NT-Pro-B Natriuret Pep 45431 H (0-1000) pg/mL Med Orders - Current: Current Medications Acetaminophen (Acetaminophen 325 Mg Tab) 650 mg PO Q4H PRN PRN Reason: Pain (Mild 1-3)/fever Albuterol/Ipratropium (Albuterol/Ipratropium 3.0-0.5 Mg/3 Ml Neb Soln) 3 ml INH QID [facility] Last Admin: 08/20/20 07:44 Dose: 3 ml Documented by: Allopurinol (Allopurinol 100 Mg Tab) 100 mg PO DAILY [facility] Last Admin: 08/20/20 07:46 Dose: 100 mg Documented by: Alprazolam (Alprazolam 0.25 Mg Tab) 0.5 mg PO BEDTIME [facility] Last Admin: 08/19/20 20:03 Dose: 0.5 mg Documented by: Apixaban (Apixaban 5 Mg Tab) 2.5 mg PO BID [facility] Last Admin: 08/20/20 07:43 Dose: 2.5 mg Documented by: Bupropion HCl (Bupropion 150 Mg Tab.Er) 300 mg PO DAILY [facility] Last Admin: 08/20/20 07:44 Dose: 300 mg Documented by: Carvedilol (Carvedilol 12.5 Mg Tab) 12.5 mg PO BIDMEALS [facility] Last Admin: 08/20/20 07:44 Dose: 12.5 mg Documented by: Ceftriaxone Sodium (Ceftriaxone 1 Gm Vial) 1 gm IVPUSH Q24H [facility] Last Admin: 08/19/20 13:57 Dose: 1 gm Documented by: Clonidine HCl (Clonidine 0.1 Mg Tab) 0.2 mg PO BID [facility] Last Admin: 08/20/20 07:42 Dose: 0.2 mg Documented by: Diltiazem HCl (Diltiazem 120 Mg Cap.Cd) 240 mg PO DAILY [facility] Last Admin: 08/20/20 07:44 Dose: 240 mg Documented by: Ferrous Sulfate (Ferrous Sulfate 324 Mg Tab.Ec) 324 mg PO DAILY [facility] Last Admin: 08/20/20 07:45 Dose: 324 mg Documented by: Furosemide (Furosemide 40 Mg/4 Ml Vial) 40 mg IVPUSH Q24H [facility] Gabapentin (Gabapentin 100 Mg Cap) 100 mg PO TID [facility] Last Admin: 08/20/20 07:46 Dose: 100 mg Documented by: Insulin NPH Beef/Pork (Insulin Nph Hum/Reg Insulin Hm 100 Unit/Ml 3 Ml Vial) 16 unit SQ DAILY [facility] Last Admin: 08/20/20 08:30 Dose: 16 unit Documented by: Insulin NPH Beef/Pork (Insulin Nph Hum/Reg Insulin Hm 100 Unit/Ml 3 Ml Vial) 8 unit SQ ACDINNER [facility] Last Admin: 08/19/20 17:16 Dose: 8 unit Documented by: Isosorbide Mononitrate (Isosorbide Mononitrate 30 Mg Tab.Er) 90 mg PO DAILY [facility] Last Admin: 08/20/20 07:45 Dose: 90 mg Documented by: Pantoprazole Sodium (Pantoprazole 40 Mg Tab.Cr) 40 mg PO ACBREAKFAST [facility] Last Admin: 08/20/20 06:04 Dose: 40 mg Documented by: Polyethylene Glycol (Polyethylene Glycol 3350 Powder 17 Gm Packet) 17 gm PO DAILY [facility] Last Admin: 08/20/20 07:42 Dose: Not Given Documented by: Sodium Chloride (Sodium Chloride 0.9% 10 Ml Syringe) 10 ml FLUSH ASDIRECTED PRN PRN Reason: Keep Vein Open Discontinued Medications Furosemide (Furosemide 40 Mg/4 Ml Vial) 40 mg IVPUSH BID [facility] Last Admin: 08/20/20 07:46 Dose: 40 mg Documented by: - Exam Quality Assessment: No: Supplemental Oxygen General: Alert, Oriented, Cooperative, No Acute Distress Neck: Supple, Trachea Midline Lungs: Crackles Cardiovascular: Regular Rate, Regular Rhythm, Murmurs GI/Abdominal Exam: Soft, Non-Tender Back Exam: Normal Inspection Extremities: Normal Range of Motion, Non-Tender, Normal Capillary Refill, Pedal Edema (+4 BLE) Peripheral Pulses: 2+: Radial (L), Radial (R), Posterior Tibial (L), Posterior Tibial (R) Skin: Warm, Dry, Intact Neurological: No New Focal Deficit Psy/Mental Status: Alert, Normal Affect, Normal Mood - Patient Data Lab Results Last 24 hrs: Laboratory Results - last 24 hr 08/19/20 08/19/20 08/20/20 Range/Units 13:15 17:15 05:11 Sodium 141 142 (136-145) mEq/L Potassium 4.3 4.3 (3.5-5.0) mEq/L Chloride 104 105 (98-106) mEq/L Carbon Dioxide 28 26 (21-32) mmol/L BUN 62 H 62 H (7-18) mg/dL Creatinine 2.6 H* 2.4 H (0.6-1.0) mg/dL Est Cr Clr Drug Dosing 18.46 20.00 mL/min Estimated GFR (MDRD) 18 L 20 L (>=60) mL/min Glucose 181 H D 97 D (75-99) mg/dL POC Glucose 114 H (75-105) mg/dL Calcium 8.0 L 8.0 L (8.4-10.1) mg/dL NT-Pro-B Natriuret Pep 68715 H (0-1000) pg/mL Result Diagrams: 08/18/20 09:09 08/20/20 05:11 Sepsis Event Note - Evaluation Sepsis Screening Result: No Definite Risk - Focused Exam Vital Signs: Vital Signs Temp Pulse Pulse Resp BP BP Pulse Ox 08/20/20 08:00 97.6 F 68 18 167/63 H 95 08/20/20 07:45 167/63 H 08/20/20 07:44 68 167/63 H 08/20/20 07:42 167/63 H 08/20/20 04:00 97.7 F 53 L 16 148/53 H 93 L 08/20/20 00:00 97.2 F 59 L 16 154/64 H 94 L - Problem List Review Problem List Initiated/Reviewed/Updated: Yes - My Orders Last 24 Hours: My Active Orders 08/20/20 10:00 Furosemide [Lasix] 40 mg IVPUSH Q24H 08/21/20 08:00 PRO B-TYPE NATRIUR PEPT,BNPPRO [CHEM] DAILY 08/22/20 05:00 BASIC METABOLIC PANEL,BMP [CHEM] Routine CBC WITH AUTO DIFF [HEME] Routine 08/22/20 08:00 PRO B-TYPE NATRIUR PEPT,BNPPRO [CHEM] DAILY - Plan Plan:: 08/19/2020 Reviewed patient's laboratory work this morning. Patient does have symptoms of UTI with trace of leukocytes, 40-50 WBC's and moderate amount of bacteria via U A. Will start IV Rocephin. Will continue with IV Lasix. Discussed patient's condition with Fabian Villanueva, on- call provider. 08/20/20 0750am Patient reports that her shortness of breath is about the same this morning. She reports that she has been able to get up from bed with walker and go to the bathroom and walk around the room today. Patient oxygen saturation is 95% on RA. Patient brought her up her code status this morning. We discussed for about 15 minutes her code status selection and her condition. She reports she has no quality of life and no longer wants to be a full code. She is fully alert and oriented, sound mind and body. She is able to make this decision. She does want treatment, but no intubation, cpr, or vent. The patient labs yesterday were BUN 62, today 62. CR yesterday 2.6, today is 2.4. The 6th her BNP was 23,360, today it is 18,134. Discussed patient with Dr. Oliveira. Will decrease her Lasix to 20mg qday down from BID. Will continue her admit, redraw labs tomorrow.
[2020-08-20] MEDS: cefTRIAXone 1 GM Vial IVPUSH SCH (13:46)
[2020-08-20] MEDS: ALPRAZolam 0.25 MG Tab PO SCH (20:01)
[2020-08-21] MEDS: Pantoprazole 40 MG Tab.CR PO SCH (06:12)
[2020-08-21] MEDS: Albuterol/Ipratropium 3.0-0.5 MG/3 ML Neb Soln INH SCH ×4 (07:46→20:09)
[2020-08-21] MEDS: Apixaban 5 MG Tab PO SCH ×2 (07:46→20:06)
[2020-08-21] MEDS: Polyethylene Glycol 3350 Powder 17 GM Packet PO SCH (07:47)
[2020-08-21] MEDS: Gabapentin 100 MG Cap PO SCH ×3 (07:47→20:06)
[2020-08-21] MEDS: Allopurinol 100 MG Tab PO SCH (07:47)
[2020-08-21] MEDS: buPROPion 150 MG Tab.ER PO SCH (07:47)
[2020-08-21] MEDS: Ferrous Sulfate 324 MG Tab.EC PO SCH (07:47)
[2020-08-21] MEDS: Isosorbide Mononitrate 30 MG Tab.ER PO SCH (07:53)
[2020-08-21] MEDS: cloNIDine 0.1 MG Tab PO SCH ×2 (07:53→20:07)
[2020-08-21] MEDS: Carvedilol 12.5 MG Tab PO SCH ×2 (07:53→17:01)
[2020-08-21] MEDS: Diltiazem 120 MG Cap.CD PO SCH (07:54)
[2020-08-21] MEDS: Insulin NPH HUM/REG Insulin HM 100 UNIT/ML 3 ML Vial SQ SCH ×2 (08:23→17:07)
--- NOTE | 2020-08-21 09:11 | PCM.PN ---
- General Info Date of Service: 08/21/20 Functional Status: Reports: Pain Controlled, Tolerating Diet, Ambulating (with walker to the bathroom and back to bed and chair. ), Urinating - Review of Systems General: Reports: Weakness, Fatigue HEENT: Reports: No Symptoms Pulmonary: Reports: Shortness of Breath (little increased today per patient) Cardiovascular: Reports: Edema Gastrointestinal: Reports: No Symptoms Genitourinary: Reports: No Symptoms Musculoskeletal: Reports: No Symptoms Skin: Reports: No Symptoms Neurological: Reports: No Symptoms Psychiatric: Reports: No Symptoms - Patient Data Vitals - Most Recent: Last Vital Signs Temp 97.5 F 08/21/20 08:00 Pulse 67 08/21/20 08:00 Resp 18 08/21/20 08:00 BP 177/57 H 08/21/20 08:00 Pulse Ox 100 08/21/20 08:00 Weight - Most Recent: 236 lb 14.4 oz I&O - Last 24 Hours: Intake & Output 08/20/20 08/21/20 08/21/20 22:59 06:59 14:59 Intake Total 1120 200 Output Total 700 500 Balance 420 -300 Lab Results Last 24 Hours: Laboratory Results - last 24 hr 08/20/20 08/21/20 Range/Units 17:08 05:11 Sodium 141 (136-145) mEq/L Potassium 4.2 (3.5-5.0) mEq/L Chloride 105 (98-106) mEq/L Carbon Dioxide 27 (21-32) mmol/L BUN 60 H (7-18) mg/dL Creatinine 2.3 H (0.6-1.0) mg/dL Est Cr Clr Drug Dosing 20.87 mL/min Estimated GFR (MDRD) 21 L (>=60) mL/min Glucose 115 H (75-99) mg/dL POC Glucose 162 H (75-105) mg/dL Calcium 8.0 L (8.4-10.1) mg/dL NT-Pro-B Natriuret Pep 53054 H (0-1000) pg/mL Med Orders - Current: Current Medications Acetaminophen (Acetaminophen 325 Mg Tab) 650 mg PO Q4H PRN PRN Reason: Pain (Mild 1-3)/fever Albuterol/Ipratropium (Albuterol/Ipratropium 3.0-0.5 Mg/3 Ml Neb Soln) 3 ml INH QID [facility] Last Admin: 08/21/20 07:46 Dose: 3 ml Documented by: Allopurinol (Allopurinol 100 Mg Tab) 100 mg PO DAILY [facility] Last Admin: 08/21/20 07:47 Dose: 100 mg Documented by: Alprazolam (Alprazolam 0.25 Mg Tab) 0.5 mg PO BEDTIME [facility] Last Admin: 08/20/20 20:01 Dose: 0.5 mg Documented by: Apixaban (Apixaban 5 Mg Tab) 2.5 mg PO BID [facility] Last Admin: 08/21/20 07:46 Dose: 2.5 mg Documented by: Bupropion HCl (Bupropion 150 Mg Tab.Er) 300 mg PO DAILY [facility] Last Admin: 08/21/20 07:47 Dose: 300 mg Documented by: Carvedilol (Carvedilol 12.5 Mg Tab) 12.5 mg PO BIDMEALS [facility] Last Admin: 08/21/20 07:53 Dose: 12.5 mg Documented by: Ceftriaxone Sodium (Ceftriaxone 1 Gm Vial) 1 gm IVPUSH Q24H [facility] Last Admin: 08/20/20 13:46 Dose: 1 gm Documented by: Clonidine HCl (Clonidine 0.1 Mg Tab) 0.2 mg PO BID [facility] Last Admin: 08/21/20 07:53 Dose: 0.2 mg Documented by: Diltiazem HCl (Diltiazem 120 Mg Cap.Cd) 240 mg PO DAILY [facility] Last Admin: 08/21/20 07:54 Dose: 240 mg Documented by: Ferrous Sulfate (Ferrous Sulfate 324 Mg Tab.Ec) 324 mg PO DAILY [facility] Last Admin: 08/21/20 07:47 Dose: 324 mg Documented by: Furosemide (Furosemide 40 Mg/4 Ml Vial) 40 mg IVPUSH Q24H [facility] Last Admin: 08/20/20 10:55 Dose: Not Given Documented by: Gabapentin (Gabapentin 100 Mg Cap) 100 mg PO TID [facility] Last Admin: 08/21/20 07:47 Dose: 100 mg Documented by: Insulin NPH Beef/Pork (Insulin Nph Hum/Reg Insulin Hm 100 Unit/Ml 3 Ml Vial) 16 unit SQ DAILY [facility] Last Admin: 08/21/20 08:23 Dose: 16 unit Documented by: Insulin NPH Beef/Pork (Insulin Nph Hum/Reg Insulin Hm 100 Unit/Ml 3 Ml Vial) 8 unit SQ ACDINNER [facility] Last Admin: 08/20/20 17:12 Dose: 8 unit Documented by: Isosorbide Mononitrate (Isosorbide Mononitrate 30 Mg Tab.Er) 90 mg PO DAILY [facility] Last Admin: 08/21/20 07:53 Dose: 90 mg Documented by: Pantoprazole Sodium (Pantoprazole 40 Mg Tab.Cr) 40 mg PO ACBREAKFAST [facility] Last Admin: 08/21/20 06:12 Dose: 40 mg Documented by: Polyethylene Glycol (Polyethylene Glycol 3350 Powder 17 Gm Packet) 17 gm PO DAILY [facility] Last Admin: 08/21/20 07:47 Dose: Not Given Documented by: Sodium Chloride (Sodium Chloride 0.9% 10 Ml Syringe) 10 ml FLUSH ASDIRECTED PRN PRN Reason: Keep Vein Open Discontinued Medications Furosemide (Furosemide 40 Mg/4 Ml Vial) 40 mg IVPUSH BID [facility] Last Admin: 08/20/20 07:46 Dose: 40 mg Documented by: - Exam Quality Assessment: No: Supplemental Oxygen (RA 100% this morning) General: Alert, Oriented, Cooperative, No Acute Distress Neck: Supple, Trachea Midline, No JVD Lungs: Crackles (minimal bialteral bases) Cardiovascular: Regular Rate, Regular Rhythm GI/Abdominal Exam: Soft, Non-Tender Extremities: Normal Inspection, Pedal Edema (+4 BLE) Peripheral Pulses: 2+: Radial (L), Radial (R), Posterior Tibial (L), Posterior Tibial (R), Dorsalis Pedis (L), Dorsalis Pedis (R) Skin: Warm, Dry, Intact Neurological: No New Focal Deficit Psy/Mental Status: Alert, Normal Affect, Normal Mood - Patient Data Lab Results Last 24 hrs: Laboratory Results - last 24 hr 08/20/20 08/21/20 Range/Units 17:08 05:11 Sodium 141 (136-145) mEq/L Potassium 4.2 (3.5-5.0) mEq/L Chloride 105 (98-106) mEq/L Carbon Dioxide 27 (21-32) mmol/L BUN 60 H (7-18) mg/dL Creatinine 2.3 H (0.6-1.0) mg/dL Est Cr Clr Drug Dosing 20.87 mL/min Estimated GFR (MDRD) 21 L (>=60) mL/min Glucose 115 H (75-99) mg/dL POC Glucose 162 H (75-105) mg/dL Calcium 8.0 L (8.4-10.1) mg/dL NT-Pro-B Natriuret Pep 51832 H (0-1000) pg/mL Result Diagrams: 08/18/20 09:09 08/21/20 05:11 Sepsis Event Note - Evaluation Sepsis Screening Result: No Definite Risk - Focused Exam Vital Signs: Vital Signs Temp Pulse Pulse Resp BP BP Pulse Ox 08/21/20 08:00 97.5 F 67 18 177/57 H 100 08/21/20 07:54 67 177/57 H 08/21/20 07:53 67 177/57 H 08/21/20 04:00 97.6 F 54 L 16 161/55 H 92 L 08/20/20 23:30 97.4 F 67 16 159/63 H 93 L - Problem List Review Problem List Initiated/Reviewed/Updated: Yes - My Orders Last 24 Hours: My Active Orders 08/20/20 10:00 Furosemide [Lasix] 40 mg IVPUSH Q24H 08/20/20 20:31 Resuscitation Status Routine 08/22/20 05:00 BASIC METABOLIC PANEL,BMP [CHEM] Routine CBC WITH AUTO DIFF [HEME] Routine 08/22/20 08:00 PRO B-TYPE NATRIUR PEPT,BNPPRO [CHEM] DAILY - Plan Plan:: 08/19/2020 Reviewed patient's laboratory work this morning. Patient does have symptoms of UTI with trace of leukocytes, 40-50 WBC's and moderate amount of bacteria via UA. Will start IV Rocephin. Will continue with IV Lasix. Discussed patient's condition with Fabian Villanueva, on- call provider. 08/20/20 0750am Patient reports that her shortness of breath is about the same this morning. She reports that she has been able to get up from bed with walker and go to the bathroom and walk around the room today. Patient oxygen saturation is 95% on RA. Patient brought her up her code status this morning. We discussed for about 15 minutes her code status selection and her condition. She reports she has no quality of life and no longer wants to be a full code. She is fully alert and oriented, sound mind and body. She is able to make this decision. She does want treatment, but no intubation, cpr, or vent. The patient labs yesterday were BUN 62, today 62. CR yesterday 2.6, today is 2.4. The 6th her BNP was 23,360, today it is 18,134. Discussed patient with Dr. Oliveira. Will decrease her Lasix to 20mg qday down from BID. Will continue her admit, redraw labs tomorrow. 08/21/20 0755am Patient today reports that her shortness of breath this morning is a little worse than yesterday. Her Lasix was decreased yesterday to qday. I spent about 20 minutes with the patient discussing her BNP, heart failure, and her renal function. Patient sitting up in chair. Her oxygen saturation this morning is 100% on RA. Labs today are CR 2.3, BUN 60, BNP 20,473. Will continue admit and see how patient does clinically today. If she continues same, or improved, the patient may be discharged back to the [facility] tomorrow, and managed out patient.
[2020-08-21] MEDS: Furosemide 40 MG/4 ML VIAL IVPUSH SCH (09:23)
[2020-08-21] MEDS: cefTRIAXone 1 GM Vial IVPUSH SCH (13:48)
[2020-08-21] MEDS: ALPRAZolam 0.25 MG Tab PO SCH (20:07)
[2020-08-22] MEDS: Pantoprazole 40 MG Tab.CR PO SCH (07:03)
[2020-08-22] MEDS: buPROPion 150 MG Tab.ER PO SCH (08:26)
[2020-08-22] MEDS: cloNIDine 0.1 MG Tab PO SCH ×2 (08:27→19:30)
[2020-08-22] MEDS: Apixaban 5 MG Tab PO SCH ×2 (08:27→19:31)
[2020-08-22] MEDS: Isosorbide Mononitrate 30 MG Tab.ER PO SCH (08:28)
[2020-08-22] MEDS: Diltiazem 120 MG Cap.CD PO SCH (08:28)
[2020-08-22] MEDS: Carvedilol 12.5 MG Tab PO SCH ×2 (08:28→17:35)
[2020-08-22] MEDS: Allopurinol 100 MG Tab PO SCH (08:29)
[2020-08-22] MEDS: Gabapentin 100 MG Cap PO SCH (08:29)
[2020-08-22] MEDS: Ferrous Sulfate 324 MG Tab.EC PO SCH (08:29)
[2020-08-22] MEDS: Polyethylene Glycol 3350 Powder 17 GM Packet PO SCH (08:30)
[2020-08-22] MEDS: Albuterol/Ipratropium 3.0-0.5 MG/3 ML Neb Soln INH SCH ×4 (08:30→21:29)
[2020-08-22] MEDS: Insulin NPH HUM/REG Insulin HM 100 UNIT/ML 3 ML Vial SQ SCH ×2 (08:33→17:34)
[2020-08-22] MEDS: Furosemide 40 MG/4 ML VIAL IVPUSH SCH ×2 (11:30→21:29)
--- NOTE | 2020-08-22 12:33 | PN ---
DATE: 08/22/2020 S: Lucila is a pleasant 75-year-old female with a history of chronic renal insufficiency and CHF as well as COPD. She presented with increasing peripheral edema, more shortness of breath, and her proBNP was elevated. She was admitted last week and started on IV diuresis. Her weights have not changed significantly since admission. She does still feel a little short of breath. Denies any significant improvement in her peripheral edema. Blood pressures continue to trend upward. She has had few short episodes of bradycardia, which are for the most part asymptomatic. She denies any chest pain at this time. Lab work today is reviewed without significant change. Creatinine is stable at around 2.3. Her BNP has been holding steady at around 20,000. O: GENERAL: She does not appear in distress. VITAL SIGNS: She is saturating around 95% on room air. HEENT: Grossly benign. NECK: She has no resting JVD. LUNGS: Her lung sounds are slightly diminished with basilar crackles but improved. CARDIAC: Tones are irregular and controlled. ABDOMEN: Soft. EXTREMITIES: She has 1 to 2+ edema of the lower extremities from the thighs and down through the feet. ASSESSMENT: 1. ACUTE EXACERBATION OF CHRONIC DIASTOLIC CONGESTIVE HEART FAILURE. 2. CHRONIC RENAL INSUFFICIENCY. 3. CHRONIC OBSTRUCTIVE PULMONARY DISEASE. 4. URINARY TRACT INFECTION. P: The patient clinically looks stable, albeit not a significant amount better. We are going to try to find a regimen of diuretics that she tolerates and hopefully gives us some improvement of her overall CHF symptoms. She continues to not require any supplemental oxygen. Blood pressures are high, and we will try to titrate her medications at this point. They did hold her Coreg due to some bradycardia. At this time, recommend not doing that, and we will cut back slightly on her Cardizem for atrial fibrillation rate control. I am looking in a swing bed placement for further management of fluid status and blood pressure. Hopefully, we will get an answer on that in the near future. KEVIN/BAILEY /[id number]
[2020-08-22] MEDS: cefTRIAXone 1 GM Vial IVPUSH SCH (13:45)
[2020-08-22] MEDS: ALPRAZolam 0.25 MG Tab PO SCH (19:30)
[2020-08-23] MEDS: Pantoprazole 40 MG Tab.CR PO SCH (06:18)
[2020-08-23] MEDS ORDERED: Isosorbide Mononitrate 30 MG Tab.ER PO SCH (08:00)
[2020-08-23] MEDS ORDERED: amLODIPine 2.5 MG Tab PO SCH (08:00)
[2020-08-23] MEDS: cloNIDine 0.1 MG Tab PO SCH (08:07)
[2020-08-23] MEDS: Carvedilol 12.5 MG Tab PO SCH (08:08)
[2020-08-23] MEDS: Ferrous Sulfate 324 MG Tab.EC PO SCH (08:09)
[2020-08-23] MEDS: Albuterol/Ipratropium 3.0-0.5 MG/3 ML Neb Soln INH SCH (08:09)
[2020-08-23] MEDS: Allopurinol 100 MG Tab PO SCH (08:09)
[2020-08-23] MEDS: Apixaban 5 MG Tab PO SCH (08:09)
[2020-08-23] MEDS: buPROPion 150 MG Tab.ER PO SCH (08:09)
[2020-08-23] MEDS: Polyethylene Glycol 3350 Powder 17 GM Packet PO SCH (08:10)
[2020-08-23] MEDS: Insulin NPH HUM/REG Insulin HM 100 UNIT/ML 3 ML Vial SQ SCH (08:10)
[2020-08-23] MEDS: Furosemide 40 MG/4 ML VIAL IVPUSH SCH (11:16)
[2020-08-23] MEDS ORDERED: Furosemide 40 MG/4 ML VIAL IVPUSH SCH ×2 (11:26→16:00)
[2020-08-23] MEDS ORDERED: Furosemide 20 MG/2 ML VIAL IVPUSH ONE (11:45)
[2020-08-23 12:08] VITALS: BP 182/74; PULSE 61
--- NOTE | 2020-08-23 12:33 | DISCH ---
ADMISSION DIAGNOSES: 1. Acute exacerbation of chronic diastolic congestive heart failure. 2. Stage 4 chronic kidney disease. 3. Chronic obstructive pulmonary disease. 4. Hypertension. 5. Chronic atrial fibrillation. 6. Type 2 diabetes, requiring insulin. DISCHARGE DIAGNOSIS: 1. ACUTE EXACERBATION OF CHRONIC DIASTOLIC CONGESTIVE HEART FAILURE. 2. HYPERTENSION. 3. CHRONIC ATRIAL FIBRILLATION. 4. CHRONIC KIDNEY DISEASE, STAGE 4. 5. CHRONIC OBSTRUCTIVE PULMONARY DISEASE. 6. TYPE 2 DIABETES, REQUIRING INSULIN. 7. URINARY TRACT INFECTION. HISTORY: The patient on her day of admission presented from the [facility] at [facility] with increasing peripheral edema and a slight increase in shortness of breath. She was not requiring any supplemental O2. She was evaluated in the clinic and found to have a slight elevation of her creatinine from baseline at around 1.8 to 2 to 2.5 and her proBNP was up to 23,000. Troponin was negative. Ultimately, a urinalysis showed a possibility of UTI. Her chest x-ray did not show a significant volume overload, but cardiomegaly and some mild CHF signs. We elected to put the patient in acute care for diuresis. HOSPITAL COURSE: The patient was admitted, started on IV Lasix 40 mg twice a day. Her creatinine rebounded slightly and has been stable around 2.3. She has had improvement in her urine output. Her weights are not significantly down. However, we do have her on a fluid restriction and low-salt diet. She was having some bradycardia, so we stopped her diltiazem, and right now for her AFib her only medication for rate control is her Coreg. Because her blood pressures have been running high now, we have started her on a 5 mg daily dose of Norvasc and we are going to need to continue to monitor this. Other than her elevation of her blood pressures, her vitals have been fine, she still maintained her oxygenation above 92% on room air. Peripheral edema has improved slightly. She has not had any blood sugar issue since admission and we are doing Accu-Cheks routinely. At this time, we elect to switch her over to a swing bed for ongoing cares. We are going to titrate for blood pressure control and monitor fluid status. We will try to switch her over to oral medication, oral diuretics and likely initiate Aldactone to go along with oral Lasix. She has seen Nephrology in the past and has been taken off BRANDIN inhibitors due to her chronic kidney disease. So, right now she is only on diuretics, carvedilol, and now Norvasc. COMPLICATIONS: During her stay were none. CONSULTATIONS: Dietary. DISPOSITION: Transfer to swing bed. TIM /[id number]
[2020-08-23] MEDS ORDERED: Furosemide 20 MG/2 ML VIAL IVPUSH SCH (16:00)
== END 2020-08-23 12:09 | disposition swing bed (61) | DRG 291 ==
LOC: CC.FCMC 08:46 → CC.MS 08:46 → UNDOADMIN 10:04 → CC.MS 13:43
PROVIDERS: ADMIT Family Medicine; ATTEND Family Medicine
DX: I13.0 Hypertensive heart and chronic kidney disease with heart failure and stage 1 through stage 4 chronic kidney disease, or unspecified chronic kidney disease (principal); I50.33 Acute on chronic diastolic (congestive) heart failure; N18.4 Chronic kidney disease, stage 4 (severe); I48.20 Chronic atrial fibrillation, unspecified; N39.0 Urinary tract infection, site not specified; J44.9 Chronic obstructive pulmonary disease, unspecified; E11.9 Type 2 diabetes mellitus without complications; Z79.4 Long term (current) use of insulin; Z88.8 Allergy status to other drugs, medicaments and biological substances; Z91.09 Other allergy status, other than to drugs and biological substances; Z79.899 Other long term (current) drug therapy; Z79.82 Long term (current) use of aspirin; Z79.01 Long term (current) use of anticoagulants; M10.9 Gout, unspecified; I25.10 Atherosclerotic heart disease of native coronary artery without angina pectoris; Z90.49 Acquired absence of other specified parts of digestive tract; Z96.649 Presence of unspecified artificial hip joint; Z98.51 Tubal ligation status; Z96.659 Presence of unspecified artificial knee joint; Z98.890 Other specified postprocedural states; M48.061 Spinal stenosis, lumbar region without neurogenic claudication; Z87.09 Personal history of other diseases of the respiratory system; R60.0 Localized edema
CPT/HCPCS: 36415; 71046; 80048; 80053; 81001; 82947; 83880; 84443; 84484; 85025; 86140; 93005; 93010; 93306; 94640; A9270-GY; J0696; J1815-GY; J1940; J7620-GY

== ENCOUNTER 2020-08-23 12:15 | Inpatient (IN) | payer MEDICARE, OTHER, MEDICAID ==
[2020-08-23] MEDS ORDERED: Albuterol/Ipratropium 3.0-0.5 MG/3 ML Neb Soln ONE (12:56)
[2020-08-23] MEDS ORDERED: Glucagon,Human Recombinant 1 MG Vial IM PRN (13:03)
[2020-08-23] MEDS ORDERED: Sodium Chloride 0.9% 10 ML Syringe FLUSH PRN ×2 (13:03)
[2020-08-23] MEDS ORDERED: 50% Dextrose in Water 50 ML Syringe IV PRN (13:03)
[2020-08-23] MEDS: Furosemide 20 MG/2 ML VIAL IVPUSH SCH (16:59)
[2020-08-23] MEDS: Furosemide 40 MG/4 ML VIAL IVPUSH SCH (16:59)
[2020-08-23] MEDS: Albuterol/Ipratropium 3.0-0.5 MG/3 ML Neb Soln INH SCH ×2 (17:00→19:39)
[2020-08-23] MEDS: Insulin NPH HUM/REG Insulin HM 100 UNIT/ML 3 ML Vial SQ SCH (17:30)
[2020-08-23] MEDS: Carvedilol 12.5 MG Tab PO SCH (18:15)
[2020-08-23] MEDS: cloNIDine 0.1 MG Tab PO SCH (19:39)
[2020-08-23] MEDS: ALPRAZolam 0.25 MG Tab PO SCH (19:39)
[2020-08-23] MEDS: Apixaban 5 MG Tab PO SCH (19:40)
[2020-08-24] MEDS: Pantoprazole 40 MG Tab.CR PO SCH (06:36)
[2020-08-24] MEDS: Furosemide 20 MG/2 ML VIAL IVPUSH SCH ×2 (07:37→16:37)
[2020-08-24] MEDS: Albuterol/Ipratropium 3.0-0.5 MG/3 ML Neb Soln INH SCH ×4 (07:37→19:53)
[2020-08-24] MEDS: Furosemide 40 MG/4 ML VIAL IVPUSH SCH ×2 (07:37→16:37)
[2020-08-24] MEDS: cloNIDine 0.1 MG Tab PO SCH ×2 (07:38→19:51)
[2020-08-24] MEDS: Allopurinol 100 MG Tab PO SCH (07:38)
[2020-08-24] MEDS: Polyethylene Glycol 3350 Powder 17 GM Packet PO SCH (07:38)
[2020-08-24] MEDS: Isosorbide Mononitrate 60 MG Tab.ER PO SCH (07:38)
[2020-08-24] MEDS: Carvedilol 12.5 MG Tab PO SCH ×2 (07:39→16:37)
[2020-08-24] MEDS: buPROPion 150 MG Tab.ER PO SCH (07:39)
[2020-08-24] MEDS: amLODIPine 2.5 MG Tab PO SCH (07:39)
[2020-08-24] MEDS: Ferrous Sulfate 324 MG Tab.EC PO SCH (07:39)
[2020-08-24] MEDS: Insulin NPH HUM/REG Insulin HM 100 UNIT/ML 3 ML Vial SQ SCH ×2 (07:40→17:38)
[2020-08-24] MEDS: Apixaban 5 MG Tab PO SCH ×2 (07:40→19:52)
[2020-08-24] MEDS: cefTRIAXone 1 GM Vial IVPUSH SCH (11:25)
[2020-08-24] MEDS: ALPRAZolam 0.25 MG Tab PO SCH (19:51)
[2020-08-25] MEDS: Pantoprazole 40 MG Tab.CR PO SCH (06:06)
[2020-08-25] MEDS: Carvedilol 12.5 MG Tab PO SCH ×2 (07:34→17:22)
[2020-08-25] MEDS: Allopurinol 100 MG Tab PO SCH (07:34)
[2020-08-25] MEDS: amLODIPine 2.5 MG Tab PO SCH (07:34)
[2020-08-25] MEDS: Isosorbide Mononitrate 60 MG Tab.ER PO SCH (07:34)
[2020-08-25] MEDS: Apixaban 5 MG Tab PO SCH ×2 (07:34→19:48)
[2020-08-25] MEDS: buPROPion 150 MG Tab.ER PO SCH (07:34)
[2020-08-25] MEDS: Albuterol/Ipratropium 3.0-0.5 MG/3 ML Neb Soln INH SCH ×4 (07:35→19:48)
[2020-08-25] MEDS: Furosemide 20 MG/2 ML VIAL IVPUSH SCH (07:35)
[2020-08-25] MEDS: cloNIDine 0.1 MG Tab PO SCH ×2 (07:35→19:47)
[2020-08-25] MEDS: Furosemide 40 MG/4 ML VIAL IVPUSH SCH (07:35)
[2020-08-25] MEDS: Insulin NPH HUM/REG Insulin HM 100 UNIT/ML 3 ML Vial SQ SCH ×2 (07:35→17:24)
[2020-08-25] MEDS: Polyethylene Glycol 3350 Powder 17 GM Packet PO SCH ×2 (07:36→08:31)
[2020-08-25] MEDS: Ferrous Sulfate 324 MG Tab.EC PO SCH (07:36)
[2020-08-25] MEDS: Azithromycin 250 MG Tab PO SCH (11:00)
[2020-08-25] MEDS: cefTRIAXone 1 GM Vial IVPUSH SCH (11:27)
[2020-08-25] MEDS: Nystatin Susp 100,000 Unit/ML 5 ML UD Cup PO SCH ×3 (11:27→19:48)
[2020-08-25] MEDS: Acetaminophen 325 MG Tab PO PRN (13:11)
[2020-08-25] MEDS: ALPRAZolam 0.25 MG Tab PO SCH (19:47)
[2020-08-25] MEDS: Budesonide 0.5 MG/2 ML Neb Susp NEB SCH (19:48)
[2020-08-26] MEDS: Pantoprazole 40 MG Tab.CR PO SCH (06:24)
[2020-08-26] MEDS: cloNIDine 0.1 MG Tab PO SCH ×2 (07:23→19:33)
[2020-08-26] MEDS: Azithromycin 250 MG Tab PO SCH (07:24)
[2020-08-26] MEDS: buPROPion 150 MG Tab.ER PO SCH (07:24)
[2020-08-26] MEDS: Isosorbide Mononitrate 60 MG Tab.ER PO SCH (07:24)
[2020-08-26] MEDS: amLODIPine 2.5 MG Tab PO SCH (07:24)
[2020-08-26] MEDS: Polyethylene Glycol 3350 Powder 17 GM Packet PO SCH (07:25)
[2020-08-26] MEDS: Budesonide 0.5 MG/2 ML Neb Susp NEB SCH ×2 (07:25→19:29)
[2020-08-26] MEDS: Nystatin Susp 100,000 Unit/ML 5 ML UD Cup PO SCH ×4 (07:25→19:33)
[2020-08-26] MEDS: Apixaban 5 MG Tab PO SCH ×2 (07:26→19:28)
[2020-08-26] MEDS: Carvedilol 12.5 MG Tab PO SCH ×2 (07:26→17:36)
[2020-08-26] MEDS: Albuterol/Ipratropium 3.0-0.5 MG/3 ML Neb Soln INH SCH ×4 (07:27→19:29)
[2020-08-26] MEDS: Allopurinol 100 MG Tab PO SCH (07:27)
[2020-08-26] MEDS: Ferrous Sulfate 324 MG Tab.EC PO SCH (07:27)
[2020-08-26] MEDS: Acetaminophen 325 MG Tab PO PRN ×2 (07:53→19:38)
[2020-08-26] MEDS: Insulin NPH HUM/REG Insulin HM 100 UNIT/ML 3 ML Vial SQ SCH ×2 (08:07→18:39)
[2020-08-26] MEDS: cefTRIAXone 1 GM Vial IVPUSH SCH (11:47)
[2020-08-26] MEDS: Ondansetron 4 MG/2 ML SDV IVPUSH PRN (16:00)
[2020-08-26] MEDS: Torsemide 20 MG Tab PO SCH (16:00)
[2020-08-26] MEDS: ALPRAZolam 0.25 MG Tab PO SCH (19:33)
[2020-08-27] MEDS: Pantoprazole 40 MG Tab.CR PO SCH (06:13)
[2020-08-27] MEDS: Torsemide 20 MG Tab PO SCH ×2 (07:34→16:11)
[2020-08-27] MEDS: Polyethylene Glycol 3350 Powder 17 GM Packet PO SCH (07:34)
[2020-08-27] MEDS: cloNIDine 0.1 MG Tab PO SCH ×2 (07:34→19:20)
[2020-08-27] MEDS: amLODIPine 2.5 MG Tab PO SCH (07:34)
[2020-08-27] MEDS: Ferrous Sulfate 324 MG Tab.EC PO SCH (07:35)
[2020-08-27] MEDS: Allopurinol 100 MG Tab PO SCH (07:35)
[2020-08-27] MEDS: buPROPion 150 MG Tab.ER PO SCH (07:35)
[2020-08-27] MEDS: Azithromycin 250 MG Tab PO SCH (07:35)
[2020-08-27] MEDS: Carvedilol 12.5 MG Tab PO SCH ×2 (07:35→18:24)
[2020-08-27] MEDS: Apixaban 5 MG Tab PO SCH ×2 (07:35→19:20)
[2020-08-27] MEDS: Isosorbide Mononitrate 60 MG Tab.ER PO SCH (07:35)
[2020-08-27] MEDS: Albuterol/Ipratropium 3.0-0.5 MG/3 ML Neb Soln INH SCH ×4 (07:36→19:22)
[2020-08-27] MEDS: Budesonide 0.5 MG/2 ML Neb Susp NEB SCH ×2 (07:36→19:22)
[2020-08-27] MEDS: Nystatin Susp 100,000 Unit/ML 5 ML UD Cup PO SCH ×4 (07:45→19:21)
[2020-08-27] MEDS: Insulin NPH HUM/REG Insulin HM 100 UNIT/ML 3 ML Vial SQ SCH ×2 (07:46→17:08)
[2020-08-27] MEDS: cefTRIAXone 1 GM Vial IVPUSH SCH (12:26)
[2020-08-27] MEDS: ALPRAZolam 0.25 MG Tab PO SCH (19:21)
[2020-08-28] MEDS: Pantoprazole 40 MG Tab.CR PO SCH (06:47)
[2020-08-28] MEDS: Albuterol/Ipratropium 3.0-0.5 MG/3 ML Neb Soln INH SCH ×4 (07:50→19:26)
[2020-08-28] MEDS: Polyethylene Glycol 3350 Powder 17 GM Packet PO SCH (07:50)
[2020-08-28] MEDS: amLODIPine 2.5 MG Tab PO SCH (07:50)
[2020-08-28] MEDS: Azithromycin 250 MG Tab PO SCH (07:50)
[2020-08-28] MEDS: Nystatin Susp 100,000 Unit/ML 5 ML UD Cup PO SCH ×4 (07:50→19:29)
[2020-08-28] MEDS: Ferrous Sulfate 324 MG Tab.EC PO SCH (07:51)
[2020-08-28] MEDS: cloNIDine 0.1 MG Tab PO SCH ×2 (07:51→19:26)
[2020-08-28] MEDS: Allopurinol 100 MG Tab PO SCH (07:51)
[2020-08-28] MEDS: buPROPion 150 MG Tab.ER PO SCH (07:51)
[2020-08-28] MEDS: Apixaban 5 MG Tab PO SCH ×2 (07:51→19:29)
[2020-08-28] MEDS: Isosorbide Mononitrate 60 MG Tab.ER PO SCH (07:51)
[2020-08-28] MEDS: Torsemide 20 MG Tab PO SCH ×2 (07:51→15:55)
[2020-08-28] MEDS: Carvedilol 12.5 MG Tab PO SCH ×2 (07:52→17:06)
[2020-08-28] MEDS: Insulin NPH HUM/REG Insulin HM 100 UNIT/ML 3 ML Vial SQ SCH ×2 (07:59→17:44)
[2020-08-28] MEDS: Budesonide 0.5 MG/2 ML Neb Susp NEB SCH ×2 (08:00→19:26)
[2020-08-28] MEDS: cefTRIAXone 1 GM Vial IVPUSH SCH (12:12)
[2020-08-28] MEDS: Ondansetron 4 MG/2 ML SDV IVPUSH PRN (16:00)
[2020-08-28] MEDS: ALPRAZolam 0.25 MG Tab PO SCH (19:30)
[2020-08-28] MEDS: Acetaminophen 325 MG Tab PO PRN (23:13)
[2020-08-29] MEDS: Pantoprazole 40 MG Tab.CR PO SCH (06:15)
[2020-08-29 07:47] VITALS: PULSE 61
[2020-08-29] MEDS: Ferrous Sulfate 324 MG Tab.EC PO SCH (07:52)
[2020-08-29] MEDS: Torsemide 20 MG Tab PO SCH (07:52)
[2020-08-29] MEDS: Carvedilol 12.5 MG Tab PO SCH (07:52)
[2020-08-29] MEDS: buPROPion 150 MG Tab.ER PO SCH (07:52)
[2020-08-29] MEDS: Apixaban 5 MG Tab PO SCH (07:53)
[2020-08-29] MEDS: Nystatin Susp 100,000 Unit/ML 5 ML UD Cup PO SCH (07:53)
[2020-08-29] MEDS: Isosorbide Mononitrate 60 MG Tab.ER PO SCH (07:53)
[2020-08-29] MEDS: Azithromycin 250 MG Tab PO SCH (07:53)
[2020-08-29] MEDS: cloNIDine 0.1 MG Tab PO SCH (07:54)
[2020-08-29] MEDS: amLODIPine 2.5 MG Tab PO SCH (07:54)
[2020-08-29] MEDS: Allopurinol 100 MG Tab PO SCH (07:55)
[2020-08-29] MEDS: Budesonide 0.5 MG/2 ML Neb Susp NEB SCH (07:55)
[2020-08-29] MEDS: Albuterol/Ipratropium 3.0-0.5 MG/3 ML Neb Soln INH SCH (07:55)
[2020-08-29 07:56] VITALS: BP 151/68
[2020-08-29] MEDS: Insulin NPH HUM/REG Insulin HM 100 UNIT/ML 3 ML Vial SQ SCH (07:56)
[2020-08-29] MEDS: Polyethylene Glycol 3350 Powder 17 GM Packet PO SCH (07:56)
--- NOTE | 2020-08-29 10:52 | DISCH ---
ADMISSION DIAGNOSES: 1. Acute exacerbation of chronic diastolic congestive heart failure. 2. Urinary tract infection. 3. Chronic kidney disease, stage 4. 4. Hypertension. 5. Chronic atrial fibrillation. 6. Type 2 diabetes, requiring insulin. 7. Chronic obstructive pulmonary disease. DISCHARGE DIAGNOSIS: 1. ACUTE EXACERBATION OF CHRONIC DIASTOLIC CONGESTIVE HEART FAILURE. 2. URINARY TRACT INFECTION. 3. CHRONIC KIDNEY DISEASE, STAGE 4. 4. HYPERTENSION. 5. CHRONIC ATRIAL FIBRILLATION. 6. TYPE 2 DIABETES, REQUIRING INSULIN. 7. CHRONIC OBSTRUCTIVE PULMONARY DISEASE. HISTORY: Lucila is a 75-year-old who was admitted to Acute Care for almost 7 days. She came in with volume overload, hypertension, and chronic kidney disease. She was found as well to have a UTI. She was managed for about 6 or 7 days in Acute Care and she was continuing to have some elevation of her blood pressures. We wanted her to be admitted to swing bed for ongoing monitoring of blood pressures and fluid status. HOSPITAL COURSE: The patient did well while in swing bed. She has been up and ambulating on her own. She did not require any supplemental O2. Her blood pressures are improved with the addition of Norvasc. We did take away her Cardizem for rate control. She has not had any with that. She does not tolerate BRANDIN inhibitor or ARB for heart failure as her creatinine just does not handle that, and so we have been managing her without. It looks like her fluid status is stable. She has not had any change in her respiratory status or fluid level. She is having no complaints of pain or shortness of breath. She is having some issues with poor appetite and she is on Protonix. We are going to give her Remeron and see if that improves some of her symptoms. The only other change has been the addition of Pulmicort for her COPD and we will continue that on discharge. With regard to the patient's CHF regimen, we did take her off oral Lasix and we are going to use torsemide for now. We will be out at the detention later this week and I will recheck her at that time. The patient also finished a course of Rocephin for her UTI. We will get a followup urine in 2 weeks to ensure clearance. COMPLICATIONS: During her stay were none. CONSULTATIONS: PT. DISPOSITION: Transferred back to basic care at [facility]. KEVIN/BAILEY /[id number]
== END 2020-08-29 11:19 | DRG 291 ==
LOC: UNDOADMIN 12:15 → CC.MS 12:15
PROVIDERS: ADMIT Family Medicine; ATTEND Family Medicine
DX: I13.0 Hypertensive heart and chronic kidney disease with heart failure and stage 1 through stage 4 chronic kidney disease, or unspecified chronic kidney disease (principal); I50.33 Acute on chronic diastolic (congestive) heart failure; N18.4 Chronic kidney disease, stage 4 (severe); N39.0 Urinary tract infection, site not specified; I48.20 Chronic atrial fibrillation, unspecified; E11.22 Type 2 diabetes mellitus with diabetic chronic kidney disease; Z79.4 Long term (current) use of insulin; Z79.01 Long term (current) use of anticoagulants; J44.9 Chronic obstructive pulmonary disease, unspecified
CPT/HCPCS: 36415; 80048; 80053; 82947; 83880; 85025; 86140; 94640; A9270-GY; J0696; J1940; J2405; J7620-GY